=== PATIENT | female | born 1985 | race Caucasian/White ===

== ENCOUNTER 2017-10-11 12:55 | Emergency (ER) | payer OTHER ==
[2017-10-11 13:37] LABS: Absolute Lymphocytes (CBC) 2.7 K/uL (0.7-4.9); Absolute Monocytes 0.5 K/uL (0.1-1.3); Absolute Neutrophil 5.7 K/uL (1.8-8.0); Basophils % 1.3 % (0-1.3); Hematocrit 34.1 % (36.0-45.0); Lymphocytes % 27.8 % (15.3-44.8); MCH 25.7 pg (27.0-35.0); MCV 82.4 fL (80-100); MPV 9.8 fL (7.6-11.3); Monocytes % 5.5 % (3.3-12.3); RBC Red Blood Cell Count 4.14 M/uL (3.86-4.86)
[2017-10-11 13:46] LABS: Bicarbonate 28 mEq/L (21-31); Glucose Level 91 mg/dL (65-120); Lipase 22 U/L (22-51); Potassium 3.7 mEq/L (3.6-5.0); Sodium Level 138 mEq/L (135-145)
[2017-10-11] MEDS ORDERED: KETOROLAC 30 MG/ML INJ ONE (13:49)
[2017-10-11] MEDS ORDERED: ONDANSETRON 4 MG/2 ML VIAL ONE (13:49)
[2017-10-11] MEDS ORDERED: NA CHLORIDE 0.9% 1,000 ML ONE (13:49)
[2017-10-11 13:52] LABS: ALT/SGPT 24 IU/L (10-60); AST/SGOT 41 IU/L (10-42); Albumin 4.4 g/dL (3.2-5.5); Alkaline Phosphatase 42 IU/L (42-121); Amylase Level 21 U/L (28-100); BUN Blood Urea Nitrogen 15 mg/dL (6-20); Bilirubin Direct < 0.1 mg/dL (0-0.2); Bilirubin Total 0.6 mg/dL (0.3-1.2); Protein, Total 7.6 g/dL (6.0-8.3)
[2017-10-11 13:59] LABS: Urine Blood NEGATIVE (NEG); Urine Glucose NEGATIVE (NEG); Urine Protein TRACE (NEG); Urine Specific Gravity >1.030 (1.005-1.030)
--- NOTE | 2017-10-11 14:34 | RAD REPORT ---
EXAM DESCRIPTION: CT - Abdomen Pelvis W Contrast - 10/11/2017 2:18 pm CLINICAL HISTORY: Abdominal pain upper abdominal pain COMPARISON: none. TECHNIQUE: Computed axial tomography of the abdomen pelvis was obtained. 100 cc Isovue-300 was admin istered intravenously. Oral contrast was not requested which limits evaluation of bowel. All CT scans are performed using dose optimization technique as appropriate and may include automated exposure control or mA/KV adjustment according to patient size. FINDINGS: Fatty infiltration liver is present. Spleen, pancreas, adrenal and kidneys appear unremarkable. There is no evidence of diverticulitis. The appendix is normal. A small umbilical hernia is present. A 39 millimeter right ovarian cyst is present without significan t free-fluid IMPRESSION: A 39 millimeter right ovarian cyst is present without significant free-fluid
--- NOTE | 2017-10-11 14:37 | ER ---
Nurse's Notes [facility] Name: Rachael Knox Age: 32 yrs Sex: Female : 1985 Arrival Date: 10/11/2017 Time: 12:59 Bed 20 Private MD: None, None Diagnosis: Generalized abdominal pain;Unspecified ovarian cysts Presentation: 10/11 13:02 Presenting complaint: Patient states: I always have abd pain but today its worse, pt la1 denies N/V/D, states pain in LUQ. Transition of care: patient was not received from another setting of care. Onset of symptoms was October 11, 2017. Initial Sepsis Screen: Does the patient meet any 2 criteria? No. Patient's initial sepsis screen is negative. Does the patient have a suspected source of infection? No. Patient's initial sepsis screen is negative. Care prior to arrival: None. 13:02 Method Of Arrival: Ambulatory la1 13:02 Acuity: DARSHAN 3 la1 Triage Assessment: 15:12 General: Appears in no apparent distress. comfortable, Behavior is calm, cooperative, ch appropriate for age. Pain: Denies pain. 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 - Social history:: Smoking status: Patient/guardian denies using tobacco. Screenin:14 Abuse screen: Denies threats or abuse. Denies injuries from another. Nutritional ch screening: No deficits noted. Tuberculosis screening: No symptoms or risk factors identified. Fall Risk None identified. Assessment: 13:14 Pain: Complains of pain in abdomen Pain currently is 7 out of 10 on a pain scale. ch Neuro: No deficits noted. Respiratory: Airway is patent Respiratory effort is even, unlabored, Breath sounds are clear bilaterally. GI: Abdomen is obese, Bowel sounds present X 4 quads. Abd is soft and non tender X 4 quads. Derm: Skin is pink, warm \T\ dry. 15:11 Reassessment: Patient appears in no apparent distress at this time. Patient and/or ch family updated on plan of care and expected duration. Pain level reassessed. Patient is alert, oriented x 3, equal unlabored respirations, skin warm/dry/pink. Patient states feeling better. Patient states symptoms have improved. Vital Signs: 13:03 BP 132 / 88; Pulse 71; Resp 19; Temp 97.2; Pulse Ox 100% on R/A; Weight 149.69 kg; la1 Height 5 ft. 4 in. (162.56 cm); 15:11 BP 121 / 81; Pulse 56; Resp 18; Temp 98.2; Pulse Ox 99% on R/A; Pain 5/10; ch 13:03 Body Mass Index 56.64 (149.69 kg, 162.56 cm) la1 ED Course: 12:59 Patient arrived in ED. sb2 12:59 None, None is Private Physician. sb2 13:02 Triage completed. la1 13:03 Arm band placed on left wrist. la1 13:04 Liliane Diallo FNP-C is PHCP. kb 13:04 Kang Gifford MD is Attending Physician. kb 13:14 Angelita Pritchard, VITA is Primary Nurse. ch 13:14 No apparent distress. Resting quietly. ch 13:14 Patient has correct armband on for positive identification. Bed in low position. Call ch light in reach. Side rails up X2. Adult w/ patient. Pulse ox on. NIBP on. Warm blanket given. 13:14 No provider procedures requiring assistance completed. ch 13:41 Inserted saline lock: 18 gauge in right antecubital area, using aseptic technique. Blood collected. 14:19 CT Abd/Pelvis - W/Contrast In Process Unspecified. EDMS 14:36 CT completed. Patient tolerated procedure well. Patient moved back from CT. bq 15:11 IV discontinued, intact, bleeding controlled, No redness/swelling at site. Pressure ch dressing applied. Administered Medications: 13:45 Drug: NS 0.9% 1000 ml Route: IV; Rate: 1000 ml; Site: right antecubital; ch 14:25 Follow up: IV Status: Completed infusion; IV Intake: 1000ml ch 13:50 Drug: TORadol 30 mg Route: IVP; Site: right antecubital; ch 14:25 Follow up: Response: No adverse reaction; Marked relief of symptoms ch 13:55 Drug: Zofran 4 mg Route: IVP; Site: right antecubital; ch 14:25 Follow up: Response: No adverse reaction; Marked relief of symptoms ch Intake: 14:25 IV: 1000ml; Total: 1000ml. ch Outcome: 14:36 Discharge ordered by MD. perez 15:11 Discharged to home ambulatory, with family. ch 15:11 Condition: stable 15:11 Discharge instructions given to patient, family, Instructed on discharge instructions, follow up and referral plans. medication usage, Demonstrated understanding of instructions, follow-up care, medications, Prescriptions given X 2. 15:12 Patient left the ED. ch Signatures: Dispatcher [employer] EDLiliane Abarca, GETACHEW HERNANDEZ-Angelita Hernández, RN RN Loyda Hoffmann Lee, RN RN la1 Cornelia Guzmna2
--- NOTE | 2017-10-11 14:37 | EDPHYS ---
Physician Documentation [facility] Name: Rachael Knox Age: 32 yrs Sex: Female : 1985 Arrival Date: 10/11/2017 Time: 12:59 Bed 20 Private MD: None, None ED Physician Kang Gifford HPI: 10/11 13:31 This 32 yrs old Female presents to ER via Ambulatory with complaints of kb Abdominal Pain. 13:31 The patient presents with abdominal pain in the left upper quadrant, in the left lower kb quadrant. Onset: The symptoms/episode began/occurred a few months ago, became worse yesterday. The symptoms do not radiate. Associated signs and symptoms: Pertinent positives: nausea. The symptoms are described as achy. Modifying factors: The symptoms are alleviated by nothing, the symptoms are aggravated by pressure. Severity of pain: At its worst the pain was moderate in the emergency department the pain is unchanged. The patient has not experienced similar symptoms in the past. The patient has not recently seen a physician. 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 - Social history:: Smoking status: Patient/guardian denies using tobacco. ROS: 13:31 Constitutional: Negative for fever, chills, and weight loss, Cardiovascular: Negative kb for chest pain, palpitations, and edema, Respiratory: Negative for shortness of breath, cough, wheezing, and pleuritic chest pain, Back: Negative for injury and pain, : Negative for injury, bleeding, discharge, and swelling, MS/Extremity: Negative for injury and deformity, Skin: Negative for injury, rash, and discoloration, Neuro: Negative for headache, weakness, numbness, tingling, and seizure. 13:31 Abdomen/GI: Positive for abdominal pain, nausea, Negative for vomiting, diarrhea, constipation, abdominal cramps, abdominal distension, anorexia. Exam: 13:31 Constitutional: This is a well developed, well nourished patient who is awake, alert, kb and in no acute distress. Head/Face: Normocephalic, atraumatic. Chest/axilla: Normal chest wall appearance and motion. Nontender with no deformity. No lesions are appreciated. Cardiovascular: Regular rate and rhythm with a normal S1 and S2. No gallops, murmurs, or rubs. Normal PMI, no JVD. No pulse deficits. Respiratory: Lungs have equal breath sounds bilaterally, clear to auscultation and percussion. No rales, rhonchi or wheezes noted. No increased work of breathing, no retractions or nasal flaring. Back: No spinal tenderness. No costovertebral tenderness. Full range of motion. Skin: Warm, dry with normal turgor. Normal color with no rashes, no lesions, and no evidence of cellulitis. MS/ Extremity: Pulses equal, no cyanosis. Neurovascular intact. Full, normal range of motion. Neuro: Awake and alert, GCS 15, oriented to person, place, time, and situation. Cranial nerves II-XII grossly intact. Motor strength 5/5 in all extremities. Sensory grossly intact. Cerebellar exam normal. Normal gait. 13:31 Abdomen/GI: Inspection: obese Bowel sounds: normal, in all quadrants, Palpation: soft, in all quadrants, nontender, in the right upper quadrant and right lower quadrant, moderate abdominal tenderness, in the left upper quadrant and left lower quadrant. Vital Signs: 13:03 BP 132 / 88; Pulse 71; Resp 19; Temp 97.2; Pulse Ox 100% on R/A; Weight 149.69 kg; la1 Height 5 ft. 4 in. (162.56 cm); 15:11 BP 121 / 81; Pulse 56; Resp 18; Temp 98.2; Pulse Ox 99% on R/A; Pain 5/10; ch 13:03 Body Mass Index 56.64 (149.69 kg, 162.56 cm) la1 MDM: 13:08 Patient medically screened. kb 13:31 Data reviewed: vital signs, nurses notes. Data interpreted: Pulse oximetry: on room air kb is 100 %. Interpretation: normal. 14:36 Counseling: I had a detailed discussion with the patient and/or guardian regarding: the kb historical points, exam findings, and any diagnostic results supporting the discharge/admit diagnosis, lab results, radiology results, the need for outpatient follow up, a family practitioner, an OB/Gyne specialist, to return to the emergency department if symptoms worsen or persist or if there are any questions or concerns that arise at home. 10/11 13:08 Order name: Amylase, Serum; Complete Time: 13:55 kb 10/11 13:08 Order name: Basic Metabolic Panel; Complete Time: 13:55 kb 10/11 13:08 Order name: CBC with Diff; Complete Time: 13:40 kb 10/11 13:08 Order name: Hepatic Function; Complete Time: 13:55 kb 10/11 13:08 Order name: Lipase; Complete Time: 13:55 kb 10/11 13:35 Order name: Urine Dipstick--Ancillary (enter results); Complete Time: 14:25 ag 10/11 13:08 Order name: Urine Test (obtain specimen); Complete Time: 13:16 kb 10/11 13:08 Order name: IV Saline Lock; Complete Time: 13:16 kb 10/11 13:08 Order name: Labs collected and sent; Complete Time: 13:16 kb 10/11 13:35 Order name: Urine --Ancillary (enter results); Complete Time: 14:25 ag 10/11 13:55 Order name: CT Abd/Pelvis - W/Contrast; Complete Time: 14:35 kb 10/11 13:08 Order name: Urine Dipstick-Ancillary (obtain specimen); Complete Time: 13:16 kb Administered Medications: 13:45 Drug: NS 0.9% 1000 ml Route: IV; Rate: 1000 ml; Site: right antecubital; ch 14:25 Follow up: IV Status: Completed infusion; IV Intake: 1000ml ch 13:50 Drug: TORadol 30 mg Route: IVP; Site: right antecubital; ch 14:25 Follow up: Response: No adverse reaction; Marked relief of symptoms ch 13:55 Drug: Zofran 4 mg Route: IVP; Site: right antecubital; ch 14:25 Follow up: Response: No adverse reaction; Marked relief of symptoms ch Disposition: 10/12 09:10 Co-signature as Attending Physician, Kang Gifford MD I agree with the assessment and ze plan of care. Disposition: 05/20/18 14:36 Discharged to Home. Impression: Generalized abdominal pain, Unspecified ovarian cysts. - Condition is Stable. - Discharge Instructions: Abdominal Pain, Adult, [id number], Ovarian Cyst, [id number]. - Prescriptions for Zofran 4 mg Oral Tablet - take 1 tablet by ORAL route every 6 hours As needed; 20 tablet. Diclofenac Sodium 75 mg Oral Tablet, Delayed Release (E.C.) - take 1 tablet by ORAL route 2 times per day As needed; 30 tablet. - Medication Reconciliation Form, Thank You Letter, Antibiotic Education, Prescription Opioid Use form. - Follow up: Emergency Department; When: As needed; Reason: Worsening of condition. Follow up: Private Physician; When: 2 - 3 days; Reason: Recheck today's complaints, Continuance of care, Re-evaluation by your physician. Signatures: Dispatcher [employer] EDLiliane Abarca, AMBULANCE DRIVER-C AMBULANCE DRIVER-Angelita Hernández, RN RN Kang Stephen MD MD cha Attema, Lee RN RN la1 Corrections: (The following items were deleted from the chart) 10/11 15:12 14:36 10/11/2017 14:36 Discharged to Home. Impression: Generalized abdominal pain; ch Unspecified ovarian cysts. Condition is Stable. Forms are Medication Reconciliation Form, Thank You Letter, Antibiotic Education, Prescription Opioid Use. Follow up: Emergency Department; When: As needed; Reason: Worsening of condition. Follow up: Private Physician; When: 2 - 3 days; Reason: Recheck today's complaints, Continuance of care, Re-evaluation by your physician. kb
== END 2017-10-11 15:12 | disposition home or self-care (01) ==
LOC: ER 12:55
DX: N83.209 Unspecified ovarian cyst, unspecified side (principal); Z88.0 Allergy status to penicillin; Z88.1 Allergy status to other antibiotic agents; Z88.2 Allergy status to sulfonamides; Z88.3 Allergy status to other anti-infective agents
CPT/HCPCS: 36415; 74177; 80048; 80076; 81003; 81025; 82150; 83690; 85025; 96361; 96374; 96375; 99284; J2405; J7030; Q9967

== ENCOUNTER 2017-12-03 22:06 | Emergency (ER) | payer OTHER ==
[2017-12-03 23:26] LABS: Urine Blood NEGATIVE (NEG); Urine Glucose NEGATIVE (NEG); Urine Protein 2+ (NEG); Urine Specific Gravity 1.025 (1.005-1.030)
[2017-12-03] MEDS ORDERED: DICYCLOMINE HCL 10 MG CAP ONE (23:40)
[2017-12-03] MEDS ORDERED: NA CHLORIDE 0.9% 1,000 ML ONE (23:40)
[2017-12-04 00:06] LABS: Urine Mucus 3+ /HPF (NONE SEEN)
[2017-12-04 00:07] LABS: Urine Bacteria <20 /HPF (<20); Urine Culture Reflex Order NOT NEEDED; Urine RBC <5 /HPF (NONE SEEN)
[2017-12-04 00:10] LABS: Absolute Lymphocytes (CBC) 2.4 K/uL (0.7-4.9); Absolute Monocytes 0.5 K/uL (0.1-1.3); Absolute Neutrophil 5.7 K/uL (1.8-8.0); Basophils % 1.1 % (0-1.3); Eosinophils % 7.3 % (0-4.4); Lymphocytes % 25.8 % (15.3-44.8); MCH 28.2 pg (27.0-35.0); MCV 85.8 fL (80-100); MPV 9.9 fL (7.6-11.3); Monocytes % 5.2 % (3.3-12.3); RBC Red Blood Cell Count 3.96 M/uL (3.86-4.86)
[2017-12-04 00:35] LABS: Anisocytosis 1+; Blood Morphology Comment NOTED (NOT SEEN); Urine White Blood Cell Casts OK
[2017-12-04 00:36] LABS: Platelet Estimate ADEQ
[2017-12-04 00:46] LABS: ALT/SGPT 35 U/L (12-78); AST/SGOT 64 U/L (15-37); Albumin 4.2 g/dL (3.4-5.0); Alkaline Phosphatase 54 U/L (45-117); BUN Blood Urea Nitrogen 12 mg/dL (7-18); Bicarbonate 31 mmol/L (21-32); Bilirubin Direct < 0.1 mg/dL (0-0.2); Bilirubin Total 0.2 mg/dL (0.2-1.0); Glucose Level 95 mg/dL (74-106); Lipase 131 U/L (73-393); Potassium 4.2 mmol/L (3.5-5.1); Protein, Total 7.8 g/dL (6.4-8.2); Sodium Level 140 mmol/L (136-145)
--- NOTE | 2017-12-04 01:28 | ER ---
Nurse's Notes [facility] Name: Rachael Knox Age: 32 yrs Sex: Female : 1985 Arrival Date: 12/03/2017 Time: 22:07 Bed 14 Private MD: Diagnosis: Hypothyroidism, unspecified;Generalized abdominal pain Presentation: 12/03 22:24 Presenting complaint: Patient states: I HAVE THIS PAIN IN MY ABDOMEN, I GET IT ALL THE bp TIME. 22:27 Transition of care: patient was not received from another setting of care. Onset of bp symptoms is unknown. Risk Assessment: Do you want to hurt yourself or someone else? Patient reports no desire to harm self or others. Initial Sepsis Screen: Does the patient meet any 2 criteria? No. Patient's initial sepsis screen is negative. Does the patient have a suspected source of infection? No. Patient's initial sepsis screen is negative. Care prior to arrival: None. 22:27 Method Of Arrival: Ambulatory bp 22:27 Acuity: DARSHAN 4 bp Triage Assessment: 22:29 General: Appears in no apparent distress. comfortable, obese, Behavior is calm, bp cooperative, appropriate for age. General: Smells of FRIED FOOD. Pain: Complains of pain in abdomen. EENT: No deficits noted. Neuro: Level of Consciousness is awake, alert, obeys commands, Oriented to person, place, time, situation, Appropriate for age. Cardiovascular: No deficits noted. Respiratory: Airway is patent Respiratory effort is even, unlabored, Respiratory pattern is regular, symmetrical. GI: Abdomen is obese, Bowel sounds present X 4 quads. Abd is soft X 4 quads. : No signs and/or symptoms were reported regarding the genitourinary system. Derm: No deficits noted. Musculoskeletal: No deficits noted. 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 - Social history:: Smoking status: unknown. - Ebola Screening: : Patient negative for fever greater than or equal to 101.5 degrees Fahrenheit, and additional compatible Ebola Virus Disease symptoms Patient denies exposure to infectious person Patient denies travel to an Ebola-affected area in the 21 days before illness onset No symptoms or risks identified at this time. Screenin:32 Abuse screen: Denies threats or abuse. Denies injuries from another. Nutritional bp screening: No deficits noted. Tuberculosis screening: No symptoms or risk factors identified. Fall Risk None identified. Assessment: 22:32 General: SEE TRIAGE NOTE. bp 12/04 00:00 Reassessment: ALL CURRENT ORDERS COMPLETE, IVF INFUSING. bp 00:52 Reassessment: ALL CURRENT ORDERS COMPLETED, VS STABLE ON MONITOR. DISPO PENDING. bp 02:20 Reassessment: PT D/C HOME AMBULATORY, DX WITH HYPOTHYROIDISM. bp Vital Signs: 12/03 22:31 BP 138 / 94; Pulse 89; Resp 14; Temp 98; Pulse Ox 94% ; Weight 151.95 kg; Height 5 ft. bp 5 in. (165.10 cm); 12/04 00:00 BP 118 / 71; Pulse 79; Resp 14; Pulse Ox 92% ; bp 00:51 BP 124 / 77; Pulse 79; Resp 16; Pulse Ox 95% on R/A; bp 01:30 BP 129 / 76; Pulse 81; Resp 16; Pulse Ox 96% ; bp 07 22:31 Body Mass Index 55.75 (151.95 kg, 165.10 cm) bp ED Course: 12/03 22:07 Patient arrived in ED. ds1 22:17 Adithya Guillen, VITA is Primary Nurse. bp 22:20 Ainsley Bruce FNP-C is PHCP. snw 22:20 Kang Gifford MD is Attending Physician. snw 22:28 Triage completed. bp 22:32 Arm band placed on. bp 22:32 Patient has correct armband on for positive identification. Bed in low position. Call bp light in reach. Side rails up X2. Adult w/ patient. 22:45 Inserted saline lock: 22 gauge in left antecubital area, using aseptic technique. bp 12/04 02:21 No provider procedures requiring assistance completed. IV discontinued, intact, bp bleeding controlled, No redness/swelling at site. Pressure dressing applied. Administered Medications: 12/03 23:30 Drug: NS 0.9% 1000 ml Route: IV; Rate: 125 ml/hr; Site: left antecubital; bp 12/04 01:33 Follow up: IV Status: Completed infusion bp 12/03 23:30 Drug: Bentyl 20 mg Route: PO; bp 12/04 00:06 Follow up: Response: No adverse reaction bp 01:50 Drug: Synthroid 150 mcg Route: PO; bp 01:51 Follow up: Response: Medication administered at discharge. bp 01:50 Drug: traMADol 50 mg Route: PO; bp 01:51 Follow up: Response: Medication administered at discharge. bp Outcome: 01:27 Discharge ordered by . snw 02:22 Discharged to home ambulatory, with family. bp 02:22 Condition: stable 02:22 Discharge instructions given to patient, Instructed on discharge instructions, follow up and referral plans. medication usage, Demonstrated understanding of instructions, follow-up care, medications, Prescriptions given X 2. 02:22 Patient left the ED. bp Signatures: Ainsley Bruce, ANIMAL BIOLOGIST-C ANIMAL BIOLOGIST-Fern Zhang ds1 Adithya Guillen, RN RN bp
--- NOTE | 2017-12-04 01:28 | EDPHYS ---
Physician Documentation [facility] Name: Rachael Knox Age: 32 yrs Sex: Female : 1985 Arrival Date: 12/03/2017 Time: 22:07 Bed 14 Private MD: ED Physician Kang Gifford HPI: 12/04 00:17 This 32 yrs old Female presents to ER via Ambulatory with complaints of snw Abdominal Pain. 00:17 The patient presents with abdominal pain that is diffuse. Onset: The symptoms/episode snw began/occurred 3 month(s) ago, and became persistent. The symptoms do not radiate. Associated signs and symptoms: none. The symptoms are described as crampy, sharp. Severity of pain: At its worst the pain was moderate in the emergency department the pain is unchanged. The patient has experienced similar episodes in the past, chronically. The patient has not recently seen a physician, and does not have an established primary care provider, just moved to area. no meds for hypothyroidism, bipolar condition, or hypertension. 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 - Social history:: Smoking status: unknown. - Ebola Screening: : Patient negative for fever greater than or equal to 101.5 degrees Fahrenheit, and additional compatible Ebola Virus Disease symptoms Patient denies exposure to infectious person Patient denies travel to an Ebola-affected area in the 21 days before illness onset No symptoms or risks identified at this time. ROS: 12/04 00:16 Constitutional: Negative for fever, chills, and weight loss, Eyes: Negative for injury, snw pain, redness, and discharge, ENT: Negative for injury, pain, and discharge, Neck: Negative for injury, pain, and swelling, Cardiovascular: Negative for chest pain, palpitations, and edema, Respiratory: Negative for shortness of breath, cough, wheezing, and pleuritic chest pain, Back: Negative for injury and pain, : Negative for injury, bleeding, discharge, and swelling, MS/Extremity: Negative for injury and deformity, Skin: Negative for injury, rash, and discoloration, Neuro: Negative for headache, weakness, numbness, tingling, and seizure. Abdomen/GI: Positive for abdominal pain. 00:16 Abdomen/GI: Negative for nausea, vomiting, and diarrhea. snw Exam: 00:15 Head/Face: Normocephalic, atraumatic. Eyes: Pupils equal round and reactive to light, snw extra-ocular motions intact. Lids and lashes normal. Conjunctiva and sclera are non-icteric and not injected. Cornea within normal limits. Periorbital areas with no swelling, redness, or edema. ENT: Nares patent. No nasal discharge, no septal abnormalities noted. Tympanic membranes are normal and external auditory canals are clear. Oropharynx with no redness, swelling, or masses, exudates, or evidence of obstruction, uvula midline. Mucous membranes moist. Neck: Trachea midline, no thyromegaly or masses palpated, and no cervical lymphadenopathy. Supple, full range of motion without nuchal rigidity, or vertebral point tenderness. No Meningismus. Chest/axilla: Normal chest wall appearance and motion. Nontender with no deformity. No lesions are appreciated. Cardiovascular: Regular rate and rhythm with a normal S1 and S2. No gallops, murmurs, or rubs. Normal PMI, no JVD. No pulse deficits. Respiratory: Lungs have equal breath sounds bilaterally, clear to auscultation and percussion. No rales, rhonchi or wheezes noted. No increased work of breathing, no retractions or nasal flaring. 00:15 Back: No spinal tenderness. No costovertebral tenderness. Full range of motion. Skin: Warm, dry with normal turgor. Pale color with no rashes, no lesions, and no evidence of cellulitis. MS/ Extremity: Pulses equal, no cyanosis. Neurovascular intact. Full, normal range of motion. Neuro: Awake and alert, GCS 15, oriented to person, place, time, and situation. Cranial nerves II-XII grossly intact. Motor strength 5/5 in all extremities. Sensory grossly intact. Cerebellar exam normal. Normal gait. 00:15 Constitutional: The patient appears alert, awake, obese. 00:15 Constitutional: The patient appears pale. 00:15 Abdomen/GI: Inspection: obese Bowel sounds: normal, Palpation: mild abdominal tenderness, in all quadrants. Vital Signs: 12/03 22:31 BP 138 / 94; Pulse 89; Resp 14; Temp 98; Pulse Ox 94% ; Weight 151.95 kg; Height 5 ft. bp 5 in. (165.10 cm); 12/04 00:00 BP 118 / 71; Pulse 79; Resp 14; Pulse Ox 92% ; bp 00:51 BP 124 / 77; Pulse 79; Resp 16; Pulse Ox 95% on R/A; bp 01:30 BP 129 / 76; Pulse 81; Resp 16; Pulse Ox 96% ; bp 12/03 22:31 Body Mass Index 55.75 (151.95 kg, 165.10 cm) bp MDM: 12/03 22:22 Patient medically screened. [facility] 12/04 01:29 Data reviewed: vital signs, nurses notes. Data interpreted: Pulse oximetry: on room air snw is 95 %. Interpretation: normal. Counseling: I had a detailed discussion with the patient and/or guardian regarding: the historical points, exam findings, and any diagnostic results supporting the discharge/admit diagnosis, lab results, the need for outpatient follow up, to return to the emergency department if symptoms worsen or persist or if there are any questions or concerns that arise at home. Special discussion: Based on the history and exam findings, there is no indication for further emergent testing or inpatient evaluation. I discussed with the patient/guardian the need to see the primary care provider for further evaluation of the symptoms. Endocrinology. 12/03 22:29 Order name: Urine Microscopic Only; Complete Time: 00:07 w 12/03 22:45 Order name: Urine Dipstick--Ancillary (enter results); Complete Time: 23:48 rg2 12/03 22:45 Order name: Urine --Ancillary (enter results); Complete Time: 23:48 2 12/03 23:04 Order name: Basic Metabolic Panel; Complete Time: 01:22 snw 12/03 23:04 Order name: CBC with Diff; Complete Time: 00:40 snw 12/03 23:04 Order name: Hepatic Function; Complete Time: 01:22 snw 12/03 23:04 Order name: Lipase; Complete Time: 01:22 snw 12/03 23:04 Order name: TSH; Complete Time: 01:22 [facility] 12/04 00:11 Order name: CBC Smear Scan; Complete Time: 00:40 [facility] 12/04 00:49 Order name: T4 Free; Complete Time: 01:22 [facility] 12/03 22:29 Order name: Urine Dipstick-Ancillary (obtain specimen); Complete Time: 22:35 [facility] 12/03 22:30 Order name: Urine Test (obtain specimen); Complete Time: 22:35 [facility] 12/03 23:04 Order name: IV Saline Lock; Complete Time: 23:27 snw 12/03 23:04 Order name: Labs collected and sent; Complete Time: 23:26 snw Administered Medications: 12/03 23:30 Drug: NS 0.9% 1000 ml Route: IV; Rate: 125 ml/hr; Site: left antecubital; bp 12/04 01:33 Follow up: IV Status: Completed infusion bp 12/03 23:30 Drug: Bentyl 20 mg Route: PO; bp 12/04 00:06 Follow up: Response: No adverse reaction bp 01:50 Drug: Synthroid 150 mcg Route: PO; bp 01:51 Follow up: Response: Medication administered at discharge. bp 01:50 Drug: traMADol 50 mg Route: PO; bp 01:51 Follow up: Response: Medication administered at discharge. bp Disposition: 12/04/17 01:27 Discharged to Home. Impression: Hypothyroidism, unspecified, Generalized abdominal pain. - Condition is Stable. - Discharge Instructions: Obesity, Abdominal Pain, Women. - Prescriptions for Bentyl 20 mg Oral Tablet - take 1 tablet by ORAL route every 6 hours As needed; 20 tablet. Levothyroxine 150 mcg Oral Tablet - take 1 tablet by ORAL route once daily take 30 minutes before breakfast; 20 tablet. - Medication Reconciliation Form, Thank You Letter, Antibiotic Education, Prescription Opioid Use form. - Follow up: Private Physician; When: 1 week; Reason: Recheck today's complaints, Continuance of care, Re-evaluation by your physician. Follow up: Emergency Department; When: As needed; Reason: Worsening of condition. Addendum: 12/06/2017 06:35 Co-signature as Attending Physician, Kang Gifford MD I agree with the assessment and c ornelas plan of care. Signatures: Dispatcher [employer] Kang Singleton MD MD cha Therrien Ainsley, FOOD SERVICE AIDE-C FOOD SERVICE AIDE-Csnw Adithya Guillen, RN RN bp Corrections: (The following items were deleted from the chart) 12/04 02:22 01:27 12/04/2017 01:27 Discharged to Home. Impression: Hypothyroidism, unspecified; bp Generalized abdominal pain. Condition is Stable. Forms are Medication Reconciliation Form, Thank You Letter, Antibiotic Education, Prescription Opioid Use. Follow up: Private Physician; When: 1 week; Reason: Recheck today's complaints, Continuance of care, Re-evaluation by your physician. Follow up: Emergency Department; When: As needed; Reason: Worsening of condition. snw
[2017-12-04] MEDS ORDERED: TRAMADOL HCL 50 MG TAB ONE (01:41)
[2017-12-04] MEDS ORDERED: LEVOTHYROXINE SOD 0.075 MG TAB ONE (01:48)
== END 2017-12-04 02:22 | disposition home or self-care (01) ==
LOC: ER 22:06
DX: E03.9 Hypothyroidism, unspecified (principal); I10 Essential (primary) hypertension; Z88.0 Allergy status to penicillin; Z88.1 Allergy status to other antibiotic agents; Z88.2 Allergy status to sulfonamides; Z88.3 Allergy status to other anti-infective agents
CPT/HCPCS: 36415; 80048; 80076; 81003; 81015; 81025; 83690; 84439; 84443; 85025; 96360; 96361; 99283; J7030

== ENCOUNTER 2018-02-18 16:15 | Emergency (ER) | payer OTHER ==
[2018-02-18] MEDS ORDERED: ALBUTEROL 2.5 MG/3 ML NEB SOL ONE (16:57)
--- NOTE | 2018-02-18 17:07 | RAD REPORT ---
EXAM DESCRIPTION: Rosario Art (2 Views)02/18/2018 4:53 pm CLINICAL HISTORY: Cough COMPARISON: December 2017 FINDINGS: The lungs appear clear of acute infiltrate. The heart is normal size IMPRESSION: No acute abnormalities displayed
--- NOTE | 2018-02-18 17:37 | EDPHYS ---
Physician Documentation [facility] Name: Rachael Knox Age: 32 yrs Sex: Female : 1985 Arrival Date: 02/18/2018 Time: 16:18 Bed 28 Private MD: LAITH CAMPOS ED Physician Junito Sutton HPI: 02/18 16:51 This 32 yrs old Female presents to ER via Ambulatory with complaints of Chest kb Congestion, Ear Pain. 16:51 The patient or guardian reports cough, that is intermittent, described as moderate, kb with productive sputum, that is yellow, flu symptoms, low-grade fever, myalgias. Onset: The symptoms/episode began/occurred 4 day(s) ago. Severity of symptoms: At their worst the symptoms were mild, moderate, in the emergency department the symptoms are unchanged. Modifying factors: The symptoms are alleviated by nothing, the symptoms are aggravated by nothing. Associated signs and symptoms: Pertinent positives: earache, fever, rhinorrhea, sore throat, Pertinent negatives: chest pain, diarrhea, nausea, vomiting. The patient has not experienced similar symptoms in the past. The patient has not recently seen a physician. 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 - Social history:: Smoking status: Patient/guardian denies using tobacco. - Ebola Screening: : Patient denies travel to an Ebola-affected area in the 21 days before illness onset. ROS: 16:49 Neck: Negative for injury, pain, and swelling, Cardiovascular: Negative for chest pain, kb palpitations, and edema, Abdomen/GI: Negative for abdominal pain, nausea, vomiting, diarrhea, and constipation, Back: Negative for injury and pain, : Negative for injury, bleeding, discharge, and swelling, MS/Extremity: Negative for injury and deformity, Skin: Negative for injury, rash, and discoloration, Neuro: Negative for headache, weakness, numbness, tingling, and seizure. 16:49 Constitutional: Positive for fever, Negative for body aches, chills, fatigue, malaise, poor PO intake, weight loss. 16:49 ENT: Positive for ear pain, rhinorrhea, sinus congestion, sore throat. 16:49 Respiratory: Positive for cough, with yellow sputum. Exam: 16:51 Constitutional: This is a well developed, well nourished patient who is awake, alert, kb and in no acute distress. Head/Face: Normocephalic, atraumatic. ENT: Nares patent. No nasal discharge, no septal abnormalities noted. Tympanic membranes are normal and external auditory canals are clear. Oropharynx with no redness, swelling, or masses, exudates, or evidence of obstruction, uvula midline. Mucous membranes moist. Neck: Trachea midline, no thyromegaly or masses palpated, and no cervical lymphadenopathy. Supple, full range of motion without nuchal rigidity, or vertebral point tenderness. No Meningismus. Chest/axilla: Normal chest wall appearance and motion. Nontender with no deformity. No lesions are appreciated. Cardiovascular: Regular rate and rhythm with a normal S1 and S2. No gallops, murmurs, or rubs. Normal PMI, no JVD. No pulse deficits. Respiratory: Lungs have equal breath sounds bilaterally, clear to auscultation and percussion. No rales, rhonchi or wheezes noted. No increased work of breathing, no retractions or nasal flaring. Abdomen/GI: Soft, non-tender, with normal bowel sounds. No distension or tympany. No guarding or rebound. No evidence of tenderness throughout. Skin: Warm, dry with normal turgor. Normal color with no rashes, no lesions, and no evidence of cellulitis. MS/ Extremity: Pulses equal, no cyanosis. Neurovascular intact. Full, normal range of motion. Neuro: Awake and alert, GCS 15, oriented to person, place, time, and situation. Cranial nerves II-XII grossly intact. Motor strength 5/5 in all extremities. Sensory grossly intact. Cerebellar exam normal. Normal gait. Vital Signs: 16:29 BP 138 / 101; Pulse 83; Resp 20; Temp 97.2; Pulse Ox 95% on R/A; Weight 149.69 kg (R); aj1 Height 5 ft. 5 in. (165.10 cm) (R); Pain 810; 16:29 Body Mass Index 54.91 (149.69 kg, 165.10 cm) aj1 MDM: 16:32 Patient medically screened. kb 16:48 Data reviewed: vital signs, nurses notes. Data interpreted: Pulse oximetry: on room air kb is 95 %. Interpretation: normal. 17:36 Counseling: I had a detailed discussion with the patient and/or guardian regarding: the kb historical points, exam findings, and any diagnostic results supporting the discharge/admit diagnosis, lab results, radiology results, the need for outpatient follow up, a family practitioner, to return to the emergency department if symptoms worsen or persist or if there are any questions or concerns that arise at home. 02/18 16:38 Order name: Flu; Complete Time: 17:35 kb 02/18 16:38 Order name: Strep; Complete Time: 17:33 kb 02/18 16:38 Order name: Chest Pa And Lat (2 Views) XRAY; Complete Time: 17:08 kb 02/18 17:34 Order name: Throat Culture EDMS Administered Medications: 16:55 Drug: Albuterol 2.5 mg Route: Inhalation; rv 18:08 Follow up: Response: No adverse reaction rv Disposition: 18:39 Co-signature as Attending Physician, Junito Sutton MD. rn Disposition: 02/18/18 17:36 Discharged to Home. Impression: Acute upper respiratory infection, unspecified. - Condition is Stable. - Discharge Instructions: Upper Respiratory Infection, Adult, [id number]. - Medication Reconciliation Form, Thank You Letter, Antibiotic Education, Prescription Opioid Use form. - Follow up: Emergency Department; When: As needed; Reason: Worsening of condition. Follow up: Private Physician; When: 2 - 3 days; Reason: Recheck today's complaints, Continuance of care, Re-evaluation by your physician. Signatures: Dispatcher [employer] EDMS Liliane Diallo FNP-C FNP-Devika Hermosillo RN RN aj1 Junito Sutton MD MD rn Vicente, Ronaldo, RN RN rv Corrections: (The following items were deleted from the chart) 18:10 17:36 02/18/2018 17:36 Discharged to Home. Impression: Acute upper respiratory rv infection, unspecified. Condition is Stable. Forms are Medication Reconciliation Form, Thank You Letter, Antibiotic Education, Prescription Opioid Use. Follow up: Emergency Department; When: As needed; Reason: Worsening of condition. Follow up: Private Physician; When: 2 - 3 days; Reason: Recheck today's complaints, Continuance of care, Re-evaluation by your physician. kb
--- NOTE | 2018-02-18 17:37 | ER ---
Nurse's Notes [facility] Name: Rachael Knox Age: 32 yrs Sex: Female : 1985 Arrival Date: 02/18/2018 Time: 16:18 Bed 28 Private MD: LAITH CAMPOS Diagnosis: Acute upper respiratory infection, unspecified Presentation: 02/18 16:26 Presenting complaint: Patient states: "I have a nasty cough, and my throat is raw. My aj1 ears are hurting. I'm coughing up a lot of nasty mucus" Reports fever, shortness of breath on exertion. Transition of care: patient was not received from another setting of care. Onset of symptoms was February 15, 2018. Risk Assessment: Do you want to hurt yourself or someone else? Patient reports no desire to harm self or others. Initial Sepsis Screen: Does the patient meet any 2 criteria? No. Patient's initial sepsis screen is negative. Does the patient have a suspected source of infection? Yes: Productive cough/pneumonia. Care prior to arrival: None. 16:26 Method Of Arrival: Ambulatory aj1 16:26 Acuity: DARSHAN 4 aj1 Triage Assessment: 16:29 General: Appears in no apparent distress. uncomfortable, Behavior is calm, cooperative, aj1 appropriate for age. Pain: Pain currently is 8 out of 10 on a pain scale. EENT: Reports nasal congestion nasal discharge sore throat. Neuro: Level of Consciousness is awake, alert, obeys commands. Cardiovascular: Patient's skin is warm and dry. Respiratory: Reports shortness of breath on exertion cough that is productive, Airway is patent Respiratory effort is even, unlabored, Respiratory pattern is regular, symmetrical. 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 - Social history:: Smoking status: Patient/guardian denies using tobacco. - Ebola Screening: : Patient denies travel to an Ebola-affected area in the 21 days before illness onset. Screenin:00 Abuse screen: Denies threats or abuse. Denies injuries from another. Nutritional rv screening: No deficits noted. Tuberculosis screening: No symptoms or risk factors identified. Fall Risk None identified. Assessment: 16:45 General: Appears in no apparent distress. comfortable, Behavior is calm, cooperative. rv 16:45 Pain: Denies pain. Neuro: Level of Consciousness is awake, alert, obeys commands, rv Oriented to person, place, time, situation. Cardiovascular: Capillary refill < 3 seconds. Respiratory: Airway is patent. GI: No signs and/or symptoms were reported involving the gastrointestinal system. : No signs and/or symptoms were reported regarding the genitourinary system. EENT: No signs and/or symptoms were reported regarding the EENT system. Derm: Skin is intact. Vital Signs: 16:29 BP 138 / 101; Pulse 83; Resp 20; Temp 97.2; Pulse Ox 95% on R/A; Weight 149.69 kg (R); aj1 Height 5 ft. 5 in. (165.10 cm) (R); Pain 8/10; 16:29 Body Mass Index 54.91 (149.69 kg, 165.10 cm) aj1 ED Course: 16:18 Patient arrived in ED. sb2 16:18 LAITH CAMPOS is Private Physician. sb2 16:25 Liliane Diallo FNP-C [facility]. kb 16:25 Junito Sutton MD is Attending Physician. kb 16:29 Triage completed. aj1 16:29 Arm band placed on Patient placed in an exam room. aj1 16:50 X-ray completed. Portable x-ray completed in exam room. Patient tolerated procedure az well. 16:50 Chest Pa And Lat (2 Views) XRAY In Process Unspecified. EDMS 17:01 Patient has correct armband on for positive identification. Bed in low position. Call rv light in reach. Side rails up X 1. Pulse ox on. NIBP on. 17:01 Initial Neb Treatment Given as ordered Patient was instructed and evaluated on rv procedure. 18:09 Throat Culture Sent. rv 18:09 No provider procedures requiring assistance completed. Patient did not have IV access rv during this emergency room visit. Administered Medications: 16:55 Drug: Albuterol 2.5 mg Route: Inhalation; rv 18:08 Follow up: Response: No adverse reaction rv Outcome: 17:36 Discharge ordered by MD. perez 18:09 Discharged to home ambulatory. rv 18:09 Condition: improved 18:09 Discharge instructions given to patient, Instructed on discharge instructions, follow up and referral plans. Demonstrated understanding of instructions, follow-up care. 18:10 Patient left the ED. rv Signatures: Dispatcher [employer] EDLiliane Abarca, DIRECTOR AUTO-C DAVID-Devika Hermosillo RN RN aj1 Cornelia Guzman sbLuis Trinidad RN RN rv Debo Yang
== END 2018-02-18 18:10 | disposition home or self-care (01) ==
LOC: ER 16:15
DX: J06.9 Acute upper respiratory infection, unspecified (principal); E03.9 Hypothyroidism, unspecified; I10 Essential (primary) hypertension; Z88.0 Allergy status to penicillin; Z88.1 Allergy status to other antibiotic agents; Z88.2 Allergy status to sulfonamides
CPT/HCPCS: 71046; 87070; 87081; 87804; 99284

== ENCOUNTER 2018-02-22 20:18 | Emergency (ER) | payer OTHER ==
[2018-02-22] MEDS ORDERED: ALBUTEROL 2.5 MG/3 ML NEB SOL ONE (21:06)
[2018-02-22] MEDS ORDERED: IPRATROPIUM BROM 0.5MG/2.5ML ONE (21:06)
[2018-02-22] MEDS ORDERED: predniSONE 20 MG TAB ONE (21:53)
--- NOTE | 2018-02-22 22:30 | RAD REPORT ---
EXAM DESCRIPTION: RAD - Chest Pa And Lat (2 Views) - 02/22/2018 9:37 pm CLINICAL HISTORY: Cough, shortness of breath COMPARISON: February 18 TECHNIQUE: PA and lateral views of the chest were obtained. FINDINGS: The lungs are clear. Lung markings are similar to the comparison study. Heart size is nor mal and central vasculature is within normal limits. No pleural effusion or pneumothorax seen. No a cute bony finding noted. No aortic abnormality. IMPRESSION: No acute cardiopulmonary process. No significant interval change.
[2018-02-22] MEDS ORDERED: LEVALBUTEROL 1.25 MG/3 ML NEB ONE (22:47)
--- NOTE | 2018-02-22 23:15 | ER ---
Nurse's Notes [facility] Name: Rachael Knox Age: 32 yrs Sex: Female : 1985 Arrival Date: 02/22/2018 Time: 20:23 Bed 27 Private MD: Diagnosis: Bronchitis, not specified as acute or chronic Presentation: 02/22 20:24 Presenting complaint: Patient states: She was seen here last week for cough, diagnosed aj1 with URI, and was sent home with Rx for breathing treatments. Reports she has had a nonstop productive cough and now she is short of breath, taking breathing treatments every 4 hours but they aren't helping, she is feeling worse. Transition of care: patient was not received from another setting of care. Onset of symptoms was 2017. Risk Assessment: Do you want to hurt yourself or someone else? Patient reports no desire to harm self or others. Initial Sepsis Screen: Does the patient meet any 2 criteria? HR > 90 bpm. No. Patient's initial sepsis screen is negative. Does the patient have a suspected source of infection? Yes: Productive cough/pneumonia. Care prior to arrival: None. 20:24 Method Of Arrival: Ambulatory aj1 20:24 Acuity: DARSHAN 3 aj1 Triage Assessment: 20:27 General: Appears in no apparent distress. uncomfortable, Behavior is calm, cooperative, aj1 appropriate for age. Pain: Denies pain. Neuro: Level of Consciousness is awake, alert, obeys commands. Cardiovascular: Patient's skin is warm and dry. Respiratory: Reports shortness of breath at rest cough that is non-productive, persistent Airway is patent Respiratory effort is even, unlabored. 20:52 Musculoskeletal: Circulation, motion, and sensation intact. Injury Description: Denies kr2 injury. 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 - Social history:: Smoking status: Patient/guardian denies using tobacco. - Ebola Screening: : Patient denies travel to an Ebola-affected area in the 21 days before illness onset. Screenin:51 Abuse screen: Denies threats or abuse. Denies injuries from another. Nutritional kr2 screening: No deficits noted. Tuberculosis screening: No symptoms or risk factors identified. Fall Risk None identified. Assessment: 20:48 General: Appears in no apparent distress. uncomfortable, obese, Behavior is calm, kr2 cooperative. Pain: Denies pain. Pain does not radiate. Pain began denies pain. Neuro: Level of Consciousness is awake, alert, obeys commands, Oriented to person, place, time, situation. Cardiovascular: Capillary refill < 3 seconds in bilateral fingers Patient's skin is warm and dry. Rhythm is regular. Respiratory: Airway is patent Respiratory effort is even, unlabored, Respiratory pattern is regular, symmetrical, Breath sounds are diminished bilaterally. the patient has mild shortness of breath. Respiratory: Reports shortness of breath at rest on exertion cough that is productive. GI: Abdomen is obese, Bowel sounds present X 4 quads. : Denies burning with urination. EENT: Oral mucosa is moist. Reports nasal congestion. 21:20 Reassessment: Patient appears in no apparent distress at this time. Patient and/or kr2 family updated on plan of care and expected duration. Pain level reassessed. Patient is alert, oriented x 3, equal unlabored respirations, skin warm/dry/pink. Patient states she feels better after receiving breathing treatment Patient states feeling better. Patient states symptoms have improved. 23:04 Reassessment: Patient appears in no apparent distress at this time. Patient and/or kr2 family updated on plan of care and expected duration. Pain level reassessed. Patient is alert, oriented x 3, equal unlabored respirations, skin warm/dry/pink. Patient states feeling better. Vital Signs: 20:27 BP 138 / 106; Pulse 95; Resp 24; Temp 99.4(O); Pulse Ox 89% on R/A; Weight 149.69 kg aj1 (R); Height 5 ft. 5 in. (165.10 cm) (R); Pain 0/10; 21:52 Pulse 93; Resp 20; Pulse Ox 95% on 2 lpm NC; kr2 23:04 BP 135 / 98; Pulse 95; Resp 20; Pulse Ox 95% on R/A; kr2 20:27 Body Mass Index 54.91 (149.69 kg, 165.10 cm) aj1 ED Course: 20:23 Patient arrived in ED. ds1 20:27 Triage completed. aj1 20:27 Arm band placed on Patient placed in an exam room. aj1 20:31 Andrés Gilmore NP is PHCP. pm1 20:31 Wilmer Carter MD is Attending Physician. pm1 20:43 Clarissa Sunshine, VITA is Primary Nurse. kr2 20:52 Patient has correct armband on for positive identification. Bed in low position. Call kr2 light in reach. Side rails up X 1. Adult w/ patient. campus monitor on. Pulse ox on. NIBP on. Door closed. Warm blanket given. Head of bed elevated. 20:53 Oxygen administration via nasal cannula \T\ 3L/min Response to oxygen therapy: symptoms kr2 improved. 21:35 Chest Pa And Lat (2 Views) XRAY In Process Unspecified. EDMS 23:04 No provider procedures requiring assistance completed. Patient did not have IV access kr2 during this emergency room visit. Administered Medications: 21:05 Drug: Albuterol - atroVENT (3:1) (2.5 mg - 0.5 mg) 3 ml Route: Nebulizer; kr2 21:20 Follow up: Response: No adverse reaction; Marked relief of symptoms kr2 21:51 Drug: predniSONE 60 mg Route: PO; kr2 22:49 Follow up: Response: No adverse reaction kr2 22:45 Drug: Xopenex 1.25 mg Route: Inhalation; kr2 23:01 Follow up: Response: No adverse reaction; Marked relief of symptoms kr2 Outcome: 23:05 Discharged to home ambulatory, with family. kr2 23:05 Condition: good 23:05 Discharge instructions given to patient, Instructed on discharge instructions, follow up and referral plans. medication usage, Demonstrated understanding of instructions, follow-up care, medications, Prescriptions given X 3. 23:15 Discharge ordered by MD. pm1 23:21 Patient left the ED. kr2 Signatures: Dispatcher [employer] EDDE Devika Paiz RN RN aj1 Fern Mckeon ds1 Andrés Gilmore NP BUSINESS TECHNOLOGY TEACHER pm1 Clarissa Sunshine, VITA RN kr2 Corrections: (The following items were deleted from the chart) 23:21 23:05 Discharge instructions given to patient, Instructed on discharge instructions, kr2 follow up and referral plans. medication usage, Demonstrated understanding of instructions, follow-up care, medications, Prescriptions given X kr2
--- NOTE | 2018-02-22 23:15 | EDPHYS ---
Physician Documentation [facility] Name: Rachael Knox Age: 32 yrs Sex: Female : 1985 Arrival Date: 02/22/2018 Time: 20:23 Bed 27 Private MD: ED Physician Wilmer Carter HPI: 02/22 22:00 This 32 yrs old Female presents to ER via Ambulatory with complaints of pm1 Shortness Of Breath. 22:00 The patient has shortness of breath at rest. Onset: The symptoms/episode began/occurred pm1 1 week(s) ago. Duration: The symptoms are continuous. The patient's shortness of breath is aggravated by nothing, is alleviated by nothing. Associated signs and symptoms: Pertinent positives: productive cough, Pertinent negatives: chest pain, fever. Severity of symptoms: in the emergency department the symptoms are worse. The patient has been recently seen at the [facility] Emergency Department, last week. Patient seen here last week for the same symptom of shortness of breath and cough. Diagnosed with URI and discharged. Patient returned due to increased shortness of breath without much improvement from breathing treatments at home. Patient was discharged home without any medications. 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 - Social history:: Smoking status: Patient/guardian denies using tobacco. - Ebola Screening: : Patient denies travel to an Ebola-affected area in the 21 days before illness onset. ROS: 22:00 Constitutional: Negative for fever, chills, and weight loss, Eyes: Negative for injury, pm1 pain, redness, and discharge, ENT: Negative for injury, pain, and discharge, Neck: Negative for injury, pain, and swelling, Cardiovascular: Negative for chest pain, palpitations, and edema, Abdomen/GI: Negative for abdominal pain, nausea, vomiting, diarrhea, and constipation, Back: Negative for injury and pain, : Negative for injury, bleeding, discharge, and swelling, MS/Extremity: Negative for injury and deformity, Skin: Negative for injury, rash, and discoloration, Neuro: Negative for headache, weakness, numbness, tingling, and seizure. 22:00 Respiratory: Positive for cough, shortness of breath, wheezing. Exam: 22:00 Constitutional: This is a well developed, well nourished patient who is awake, alert, pm1 and in no acute distress. Head/Face: Normocephalic, atraumatic. Eyes: Pupils equal round and reactive to light, extra-ocular motions intact. Lids and lashes normal. Conjunctiva and sclera are non-icteric and not injected. Cornea within normal limits. Periorbital areas with no swelling, redness, or edema. ENT: Nares patent. No nasal discharge, no septal abnormalities noted. Tympanic membranes are normal and external auditory canals are clear. Oropharynx with no redness, swelling, or masses, exudates, or evidence of obstruction, uvula midline. Mucous membranes moist. Neck: Trachea midline, no thyromegaly or masses palpated, and no cervical lymphadenopathy. Supple, full range of motion without nuchal rigidity, or vertebral point tenderness. No Meningismus. Chest/axilla: Normal chest wall appearance and motion. Nontender with no deformity. No lesions are appreciated. Cardiovascular: Regular rate and rhythm with a normal S1 and S2. No gallops, murmurs, or rubs. Normal PMI, no JVD. No pulse deficits. 22:00 Abdomen/GI: Soft, non-tender, with normal bowel sounds. No distension or tympany. No guarding or rebound. No evidence of tenderness throughout. Back: No spinal tenderness. No costovertebral tenderness. Full range of motion. Skin: Warm, dry with normal turgor. Normal color with no rashes, no lesions, and no evidence of cellulitis. MS/ Extremity: Pulses equal, no cyanosis. Neurovascular intact. Full, normal range of motion. 22:00 Respiratory: the patient does not display signs of respiratory distress, Respirations: normal, Breath sounds: wheezing: is heard diffusely. 22:00 Neuro: Orientation: is normal, Motor: is normal, moves all fours, Gait: is steady, at a normal pace, without difficulty. Vital Signs: 20:27 BP 138 / 106; Pulse 95; Resp 24; Temp 99.4(O); Pulse Ox 89% on R/A; Weight 149.69 kg aj1 (R); Height 5 ft. 5 in. (165.10 cm) (R); Pain 0/10; 21:52 Pulse 93; Resp 20; Pulse Ox 95% on 2 lpm NC; kr2 23:04 BP 135 / 98; Pulse 95; Resp 20; Pulse Ox 95% on R/A; kr2 20:27 Body Mass Index 54.91 (149.69 kg, 165.10 cm) aj1 MDM: 21:05 Patient medically screened. pm1 23:12 Data reviewed: vital signs. Data interpreted: Pulse oximetry: on room air is 95 %. pm1 Interpretation: normal. Counseling: I had a detailed discussion with the patient and/or guardian regarding: the historical points, exam findings, and any diagnostic results supporting the discharge/admit diagnosis, radiology results, the need for outpatient follow up, to return to the emergency department if symptoms worsen or persist or if there are any questions or concerns that arise at home. 23:12 ED course: Patient feels better after breathing treatments and wants to go home. Has a pm1 nebulizer machine at home. Will discharge patient home with steroids and cough suppressant. 02/22 21:04 Order name: Chest Pa And Lat (2 Views) XRAY; Complete Time: 22:31 pm1 Administered Medications: 21:05 Drug: Albuterol - atroVENT (3:1) (2.5 mg - 0.5 mg) 3 ml Route: Nebulizer; kr2 21:20 Follow up: Response: No adverse reaction; Marked relief of symptoms kr2 21:51 Drug: predniSONE 60 mg Route: PO; kr2 22:49 Follow up: Response: No adverse reaction kr2 22:45 Drug: Xopenex 1.25 mg Route: Inhalation; kr2 23:01 Follow up: Response: No adverse reaction; Marked relief of symptoms kr2 Disposition: 23:23 Co-signature as Attending Physician, Wilmer Carter MD. pkl Disposition: 02/22/18 23:15 Discharged to Home. Impression: Bronchitis, not specified as acute or chronic. - Condition is Stable. - Discharge Instructions: Acute Bronchitis, Adult, How to Use an Inhaler, [id number]. - Prescriptions for Medrol (Ed) 4 mg Oral Tablets, Dose Pack - take 1 tablet by ORAL route as directed - follow package instructions; 1 packet. Albuterol Sulfate 90 mcg/actuation - inhale 1-2 puff by INHALATION route every 4-6 hours; 1 Inhaler. Guaifenesin AC 10- 100 mg/5 mL Oral Liquid - take 10 milliliter by ORAL route every 4 hours As needed; 240 milliliter. - Medication Reconciliation Form, Thank You Letter, Antibiotic Education, Prescription Opioid Use form. - Follow up: Emergency Department; When: As needed; Reason: Worsening of condition. Follow up: Private Physician; When: 2 - 3 days; Reason: Recheck today's complaints, Continuance of care, Re-evaluation by your physician. - Problem is new. - Symptoms have improved. Signatures: Dispatcher [employer] EDMS Devika Paiz RN RN aj1 Wilmer Carter MD MD pkl Marinas, Patrick, NP ASTRONOMY DEPARTMENT CHAIR pm1 Clarissa Sunshine RN RN kr2 Corrections: (The following items were deleted from the chart) 23:21 23:15 02/22/2018 23:15 Discharged to Home. Impression: Bronchitis, not specified as kr2 acute or chronic. Condition is Stable. Forms are Medication Reconciliation Form, Thank You Letter, Antibiotic Education, Prescription Opioid Use. Follow up: Emergency Department; When: As needed; Reason: Worsening of condition. Follow up: Private Physician; When: 2 - 3 days; Reason: Recheck today's complaints, Continuance of care, Re-evaluation by your physician. Problem is new. Symptoms have improved. pm1
--- NOTE | 2018-02-23 07:24 | EKG ---
Test Date: 2018-02-22 Test Time: 20:55:33 Inclusion Manager: KV MEASUREMENT RESULTS: Intervals: Rate: 96 RI: 136 QRSD: 94 QT: 388 QTc: 490 [place]: P: 46 RI: 136 QRS: 9 T: 53 INTERPRETIVE STATEMENTS: Normal sinus rhythm Low voltage QRS Abnormal ECG Compared to ECG 01/14/2016 01:15:00 Low QRS voltage now present Sinus tachycardia no longer present T-wave abnormality no longer present Electronically Signed On 02-23-18 07:23:31 CDT by Rustam Pepper
== END 2018-02-22 23:21 | disposition home or self-care (01) ==
LOC: ER 20:18
DX: J40 Bronchitis, not specified as acute or chronic (principal); I10 Essential (primary) hypertension; E03.9 Hypothyroidism, unspecified; Z88.0 Allergy status to penicillin; Z88.1 Allergy status to other antibiotic agents; Z88.2 Allergy status to sulfonamides; Z88.3 Allergy status to other anti-infective agents
CPT/HCPCS: 71046; 93005; 94640; 99285; J7512

== ENCOUNTER 2018-03-06 22:21 | Emergency (ER) | payer OTHER ==
--- NOTE | 2018-03-06 23:38 | ER ---
Nurse's Notes [facility] Name: Rachael Knox Age: 33 yrs Sex: Female : 1985 Arrival Date: 03/06/2018 Time: 22:23 Bed Hall20 Private MD: Diagnosis: Otitis media, unspecified, left ear Presentation: 03/06 22:33 Presenting complaint: Patient states: markie ear pain for past 3 days, L worse than R. aa1 Transition of care: patient was not received from another setting of care. Onset of symptoms was March 03, 2018. Risk Assessment: Do you want to hurt yourself or someone else? Patient reports no desire to harm self or others. Initial Sepsis Screen: Does the patient meet any 2 criteria? No. Patient's initial sepsis screen is negative. Does the patient have a suspected source of infection? No. Patient's initial sepsis screen is negative. Care prior to arrival: None. 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 - Social history:: Smoking status: Patient/guardian denies using tobacco. - Ebola Screening: : No symptoms or risks identified at this time. Screenin:33 Abuse screen: Denies threats or abuse. Denies injuries from another. Nutritional aa1 screening: No deficits noted. Tuberculosis screening: No symptoms or risk factors identified. Fall Risk None identified. Assessment: 22:33 General: Appears in no apparent distress. comfortable, obese, Behavior is calm, aa1 cooperative, appropriate for age. Pain: Complains of pain in right ear and left ear Pain began 2-3 days ago. Neuro: Level of Consciousness is awake, alert, obeys commands, Oriented to person, place, time, situation, Gait is steady. Respiratory: Airway is patent Respiratory effort is even, unlabored, Respiratory pattern is regular, symmetrical. GI: No signs and/or symptoms were reported involving the gastrointestinal system. : No signs and/or symptoms were reported regarding the genitourinary system. EENT: Reports pain in left ear and right ear. Derm: Skin is intact, is healthy with good turgor, Skin is pink, warm \T\ dry. Musculoskeletal: Circulation, motion, and sensation intact. Capillary refill < 3 seconds. Vital Signs: 22:33 BP 130 / 103; Pulse 100; Resp 18; Temp 97.1; Pulse Ox 97% on R/A; Weight 151.05 kg; aa1 Height 5 ft. 5 in. (165.10 cm); 23:45 BP 129 / 87; Pulse 86; Resp 16 S; Pulse Ox 98% on R/A; jd3 22:33 Body Mass Index 55.41 (151.05 kg, 165.10 cm) aa1 ED Course: 22:23 Patient arrived in ED. rg4 22:33 Arm band placed on right wrist. Patient placed in an exam room, on a stretcher. aa1 22:33 Patient has correct armband on for positive identification. Bed in low position. Call aa1 light in reach. 22:40 Andrés Gilmore NP is PHCP. pm1 22:40 Joe Alexander MD is Attending Physician. pm1 22:53 Sara Rico RN is Primary Nurse. aa1 22:55 Triage completed. aa1 23:43 No provider procedures requiring assistance completed. Patient did not have IV access jd3 during this emergency room visit. Administered Medications: No medications were administered Outcome: 23:38 Discharge ordered by MD. pm1 23:44 Discharged to home ambulatory, with family. jd3 23:44 Condition: stable 23:44 Discharge instructions given to patient, Instructed on discharge instructions, follow up and referral plans. medication usage, Demonstrated understanding of instructions, follow-up care, medications, Prescriptions given X 1. 23:53 Patient left the ED. aa1 Signatures: Sara Rico RN RN aa1 Andrés Gilmore NP PAYROLL MACHINE OPERATOR pm1 Kaya Rivera rg4 Neftali Feldman, RN RN jd3
--- NOTE | 2018-03-06 23:38 | EDPHYS ---
Physician Documentation [facility] Name: Rachael Knox Age: 33 yrs Sex: Female : 1985 Arrival Date: 03/06/2018 Time: 22:23 Bed Hall20 Private MD: ED Physician Joe Alexander HPI: 03/06 23:37 This 33 yrs old Female presents to ER via Ambulatory with complaints of Ear pm1 Pain. 23:37 The patient presents with pain. The complaints affect the right ear and left ear. pm1 Onset: The symptoms/episode began/occurred yesterday. Modifying factors: The symptoms are alleviated by nothing, the symptoms are aggravated by nothing. Associated signs and symptoms: Pertinent negatives: cough, fever, rhinorrhea, sore throat. Severity of symptoms: in the emergency department the symptoms are worse. The patient has not experienced similar symptoms in the past. The patient has not recently seen a physician. left ear pain greater than right ear. 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 - Social history:: Smoking status: Patient/guardian denies using tobacco. - Ebola Screening: : No symptoms or risks identified at this time. ROS: 23:37 Constitutional: Negative for fever, chills, and weight loss, Eyes: Negative for injury, pm1 pain, redness, and discharge. 23:37 Neck: Negative for injury, pain, and swelling, Cardiovascular: Negative for chest pain, palpitations, and edema, Respiratory: Negative for shortness of breath, cough, wheezing, and pleuritic chest pain, Abdomen/GI: Negative for abdominal pain, nausea, vomiting, diarrhea, and constipation, Back: Negative for injury and pain, : Negative for injury, bleeding, discharge, and swelling, MS/Extremity: Negative for injury and deformity, Skin: Negative for injury, rash, and discoloration, Neuro: Negative for headache, weakness, numbness, tingling, and seizure. 23:37 ENT: Positive for ear pain, Negative for drainage from ear(s), rhinorrhea, sinus congestion, sinus pain, sore throat, difficulty swallowing, difficulty handling secretions, hoarseness. Exam: 23:37 Constitutional: This is a well developed, well nourished patient who is awake, alert, pm1 and in no acute distress. Head/Face: Normocephalic, atraumatic. Eyes: Pupils equal round and reactive to light, extra-ocular motions intact. Lids and lashes normal. Conjunctiva and sclera are non-icteric and not injected. Cornea within normal limits. Periorbital areas with no swelling, redness, or edema. 23:37 Neck: Trachea midline, no thyromegaly or masses palpated, and no cervical lymphadenopathy. Supple, full range of motion without nuchal rigidity, or vertebral point tenderness. No Meningismus. Chest/axilla: Normal chest wall appearance and motion. Nontender with no deformity. No lesions are appreciated. Cardiovascular: Regular rate and rhythm with a normal S1 and S2. No gallops, murmurs, or rubs. Normal PMI, no JVD. No pulse deficits. Respiratory: Lungs have equal breath sounds bilaterally, clear to auscultation and percussion. No rales, rhonchi or wheezes noted. No increased work of breathing, no retractions or nasal flaring. Abdomen/GI: Soft, non-tender, with normal bowel sounds. No distension or tympany. No guarding or rebound. No evidence of tenderness throughout. Back: No spinal tenderness. No costovertebral tenderness. Full range of motion. Skin: Warm, dry with normal turgor. Normal color with no rashes, no lesions, and no evidence of cellulitis. MS/ Extremity: Pulses equal, no cyanosis. Neurovascular intact. Full, normal range of motion. 23:37 ENT: External ear(s): are unremarkable, Ear canal(s): are normal, TM's: bulging, on the left, erythema, that is moderate, on the left, Examination of the other ear shows no obvious abnormality, Nose: is normal, Mouth: is normal. 23:37 Neuro: Orientation: is normal, Motor: is normal, moves all fours, strength is normal, strength is 5/5 in all extremities. Vital Signs: 22:33 BP 130 / 103; Pulse 100; Resp 18; Temp 97.1; Pulse Ox 97% on R/A; Weight 151.05 kg; aa1 Height 5 ft. 5 in. (165.10 cm); 23:45 BP 129 / 87; Pulse 86; Resp 16 S; Pulse Ox 98% on R/A; jd3 22:33 Body Mass Index 55.41 (151.05 kg, 165.10 cm) aa1 MDM: 22:54 Patient medically screened. pm1 23:37 Data reviewed: vital signs. Data interpreted: Pulse oximetry: on room air is 97 %. pm1 Interpretation: normal. Counseling: I had a detailed discussion with the patient and/or guardian regarding: the historical points, exam findings, and any diagnostic results supporting the discharge/admit diagnosis, the need for outpatient follow up, to return to the emergency department if symptoms worsen or persist or if there are any questions or concerns that arise at home. Administered Medications: No medications were administered Disposition: 03/07 00:59 Co-signature as Attending Physician, Joe Alexander MD. Disposition: 03/06/18 23:38 Discharged to Home. Impression: Otitis media, unspecified, left ear. - Condition is Stable. - Discharge Instructions: Otitis Media, Adult. - Prescriptions for Zithromax Z- Ed 250 mg Oral Tablet - take 1 tablet by ORAL route as directed for 5 days Day 1 - take two (2) tablets one time. Day 2, 3, 4 , 5 take one (1) tablet once daily.; 6 tablet. - Medication Reconciliation Form, Thank You Letter, Antibiotic Education, Prescription Opioid Use form. - Follow up: Emergency Department; When: As needed; Reason: Worsening of condition. Follow up: Private Physician; When: 2 - 3 days; Reason: Recheck today's complaints, Continuance of care, Re-evaluation by your physician. - Problem is new. - Symptoms have improved. Signatures: Sara Rico RN RN aa1 Andrés Gilmore, OVERHEAD DISTRIBUTION ENGINEER OVERHEAD DISTRIBUTION ENGINEER pm1 Joe Alexander MD MD Corrections: (The following items were deleted from the chart) 03/06 23:53 23:38 03/06/2018 23:38 Discharged to Home. Impression: Otitis media, unspecified, left aa1 ear. Condition is Stable. Forms are Medication Reconciliation Form, Thank You Letter, Antibiotic Education, Prescription Opioid Use. Follow up: Emergency Department; When: As needed; Reason: Worsening of condition. Follow up: Private Physician; When: 2 - 3 days; Reason: Recheck today's complaints, Continuance of care, Re-evaluation by your physician. Problem is new. Symptoms have improved. pm1
== END 2018-03-06 23:53 | disposition home or self-care (01) ==
LOC: ER 22:21
DX: H66.92 Otitis media, unspecified, left ear (principal); I10 Essential (primary) hypertension; E03.9 Hypothyroidism, unspecified; Z88.1 Allergy status to other antibiotic agents; Z88.0 Allergy status to penicillin; Z88.2 Allergy status to sulfonamides
CPT/HCPCS: 99282

== ENCOUNTER 2018-03-09 20:06 | Emergency (ER) | payer OTHER ==
[2018-03-09] MEDS ORDERED: IBUPROFEN 200 MG TAB PO ONE (21:09)
[2018-03-09 21:25] LABS: Urine Blood 2+ (NEG); Urine Glucose NEGATIVE (NEG); Urine Protein NEGATIVE (NEG); Urine Specific Gravity >1.030 (1.005-1.030); Urine pH 5.5 (5.0-7.0)
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
== END 2018-03-09 22:07 | disposition home or self-care (01) ==
LOC: ER 20:06
DX: S20.229A Contusion of unspecified back wall of thorax, initial encounter (principal); S20.221A Contusion of right back wall of thorax, initial encounter; N83.291 Other ovarian cyst, right side; E66.9 Obesity, unspecified; V49.9XXA Car occupant (driver) (passenger) injured in unspecified traffic accident, initial encounter; Z88.0 Allergy status to penicillin; Z88.1 Allergy status to other antibiotic agents; Z88.2 Allergy status to sulfonamides; Z88.3 Allergy status to other anti-infective agents; I10 Essential (primary) hypertension; E03.9 Hypothyroidism, unspecified
CPT/HCPCS: 70450; 71250; 72125; 81003; 81025; 99284

== ENCOUNTER 2018-04-26 10:19 | Emergency (ER) | payer OTHER ==
--- NOTE | 2018-04-26 11:38 | ER ---
Nurse's Notes [facility] Name: Rachael Knox Age: 33 yrs Sex: Female : 1985 Arrival Date: 04/26/2018 Time: 10:19 Bed Treatment Private MD: Diagnosis: Cellulitis and acute lymphangitis of face and neck;Dermatitis, unspecified Presentation: 04/26 10:41 Presenting complaint: Patient states: rash X 1 week, all over body. iw 10:42 Transition of care: patient was not received from another setting of care. Onset of iw symptoms was April 18, 2018. Risk Assessment: Do you want to hurt yourself or someone else? Patient reports no desire to harm self or others. Initial Sepsis Screen: Does the patient meet any 2 criteria? No. Patient's initial sepsis screen is negative. Does the patient have a suspected source of infection? No. Patient's initial sepsis screen is negative. Care prior to arrival: None. 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 - Ebola Screening: : Patient negative for fever greater than or equal to 101.5 degrees Fahrenheit, and additional compatible Ebola Virus Disease symptoms Patient denies exposure to infectious person Patient denies travel to an Ebola-affected area in the 21 days before illness onset No symptoms or risks identified at this time. - Family history:: not pertinent. - Social history:: Smoking status: Patient/guardian denies using tobacco. Screenin:00 Abuse screen: Denies threats or abuse. Denies injuries from another. Nutritional iw screening: No deficits noted. Tuberculosis screening: No symptoms or risk factors identified. Fall Risk None identified. Assessment: 11:00 General: Appears in no apparent distress. Behavior is calm, cooperative. Pain: Denies iw pain. Neuro: Level of Consciousness is awake, alert, obeys commands, Oriented to person, place, time, situation, Moves all extremities. Full function. Derm: Rash noted that is itchy, vesicular, on back, chest, right arm and left arm. Vital Signs: 11:00 BP 145 / 74; Pulse 84; Resp 16; Temp 98.2; Pulse Ox 100% on R/A; Pain 5/10; iw 12:00 BP 142 / 54; Pulse 74; Resp 16; Pulse Ox 98% on R/A; iw ED Course: 10:19 Patient arrived in ED. rg4 10:41 Anabella King, RN is Primary Nurse. iw 10:42 Triage completed. iw 10:45 Kang Gifford MD is Attending Physician. [facility] 11:00 No provider procedures requiring assistance completed. Patient did not have IV access iw during this emergency room visit. 11:00 Arm band placed on. iw 11:00 Patient has correct armband on for positive identification. iw Administered Medications: 12:02 Drug: Clindamycin 300 mg Route: PO; iw 12:02 Drug: Doxycycline 200 mg Route: PO; iw Outcome: 11:37 Discharge ordered by . ze 12:15 Discharged to home ambulatory. iw 12:15 Condition: good 12:15 Discharge instructions given to patient, Instructed on discharge instructions, follow up and referral plans. medication usage, Demonstrated understanding of instructions, follow-up care, medications, Prescriptions given X 4. 12:16 Patient left the ED. iw Signatures: Kang Gifford MD MD cha Williams, Irene, RN RN iw Kaya Rivera rg4 Corrections: (The following items were deleted from the chart) 10:42 10:41 Presenting complaint: Patient states: rash X 1 week iw iw
--- NOTE | 2018-04-26 11:38 | EDPHYS ---
Physician Documentation [facility] Name: Rachael Knox Age: 33 yrs Sex: Female : 1985 Arrival Date: 04/26/2018 Time: 10:19 Bed Treatment Private MD: ED Physician Kang Gifford HPI: 04/26 11:34 This 33 yrs old Female presents to ER via Ambulatory with complaints of Rash. ze 11:34 The patient's rash thought to be caused by Dermatitis. The rash is located on the body ze diffusely. The rash can be described as erythematous. Onset: The symptoms/episode began/occurred 2 week(s) ago. Associated signs and symptoms: Pertinent positives: None. Severity of symptoms: At their worst the symptoms were mild in the emergency department the symptoms are unchanged. The patient has not experienced similar symptoms in the past. 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 - Ebola Screening: : Patient negative for fever greater than or equal to 101.5 degrees Fahrenheit, and additional compatible Ebola Virus Disease symptoms Patient denies exposure to infectious person Patient denies travel to an Ebola-affected area in the 21 days before illness onset No symptoms or risks identified at this time. - Family history:: not pertinent. - Social history:: Smoking status: Patient/guardian denies using tobacco. ROS: 11:34 Constitutional: Negative for fever, chills, and weight loss, Eyes: Negative for injury, ze pain, redness, and discharge, ENT: Negative for injury, pain, and discharge, Neck: Negative for injury, pain, and swelling, Cardiovascular: Negative for chest pain, palpitations, and edema, Respiratory: Negative for shortness of breath, cough, wheezing, and pleuritic chest pain, Abdomen/GI: Negative for abdominal pain, nausea, vomiting, diarrhea, and constipation, Back: Negative for injury and pain, : Negative for injury, bleeding, discharge, and swelling, MS/Extremity: Negative for injury and deformity, Neuro: Negative for headache, weakness, numbness, tingling, and seizure, Psych: Negative for depression, anxiety, suicide ideation, homicidal ideation, and hallucinations, Allergy/Immunology: Negative for hives, rash, and allergies, Endocrine: Negative for neck swelling, polydipsia, polyuria, polyphagia, and marked weight changes, Hematologic/Lymphatic: Negative for swollen nodes, abnormal bleeding, and unusual bruising. 11:34 Skin: Positive for rash, diffusely. Exam: 11:34 Constitutional: This is a well developed, well nourished patient who is awake, alert, ze and in no acute distress. Head/Face: Normocephalic, atraumatic. Eyes: Pupils equal round and reactive to light, extra-ocular motions intact. Lids and lashes normal. Conjunctiva and sclera are non-icteric and not injected. Cornea within normal limits. Periorbital areas with no swelling, redness, or edema. ENT: Nares patent. No nasal discharge, no septal abnormalities noted. Tympanic membranes are normal and external auditory canals are clear. Oropharynx with no redness, swelling, or masses, exudates, or evidence of obstruction, uvula midline. Mucous membranes moist. Neck: Trachea midline, no thyromegaly or masses palpated, and no cervical lymphadenopathy. Supple, full range of motion without nuchal rigidity, or vertebral point tenderness. No Meningismus. Chest/axilla: Normal chest wall appearance and motion. Nontender with no deformity. No lesions are appreciated. Cardiovascular: Regular rate and rhythm with a normal S1 and S2. No gallops, murmurs, or rubs. Normal PMI, no JVD. No pulse deficits. Respiratory: Lungs have equal breath sounds bilaterally, clear to auscultation and percussion. No rales, rhonchi or wheezes noted. No increased work of breathing, no retractions or nasal flaring. Abdomen/GI: Soft, non-tender, with normal bowel sounds. No distension or tympany. No guarding or rebound. No evidence of tenderness throughout. Back: No spinal tenderness. No costovertebral tenderness. Full range of motion. MS/ Extremity: Pulses equal, no cyanosis. Neurovascular intact. Full, normal range of motion. Neuro: Awake and alert, GCS 15, oriented to person, place, time, and situation. Cranial nerves II-XII grossly intact. Motor strength 5/5 in all extremities. Sensory grossly intact. Cerebellar exam normal. Normal gait. Psych: Awake, alert, with orientation to person, place and time. Behavior, mood, and affect are within normal limits. 11:34 Skin: cellulitis, that is mild, on the back, chest, pelvis, right arm, left arm, right leg and left leg. Vital Signs: 11:00 BP 145 / 74; Pulse 84; Resp 16; Temp 98.2; Pulse Ox 100% on R/A; Pain 5/10; iw 12:00 BP 142 / 54; Pulse 74; Resp 16; Pulse Ox 98% on R/A; iw MDM: 10:45 Patient medically screened. [facility] 04/26 12:04 Order name: Urine Dipstick--Ancillary (enter results) 04/26 12:05 Order name: Urine --Ancillary (enter results) 04/26 11:33 Order name: Urine Dipstick-Ancillary (obtain specimen); Complete Time: 11:51 [facility] 04/26 11:33 Order name: Urine Test (obtain specimen); Complete Time: 11:51 [facility] Administered Medications: 12:02 Drug: Clindamycin 300 mg Route: PO; 12:02 Drug: Doxycycline 200 mg Route: PO; Disposition: 04/26/18 11:37 Discharged to Home. Impression: Cellulitis and acute lymphangitis of face and neck, Dermatitis, unspecified. - Condition is Stable. - Discharge Instructions: Cellulitis, Adult, Contact Dermatitis, MRSA Infection, Adult, Community-Associated MRSA, Rash, Rash, [id number], Contact Dermatitis, [id number], MRSA FAQs - OWENS. - Prescriptions for Bactroban 2 % Topical Ointment - apply 1 application by INTRANASAL route every 12 hours for 5 days; 30 gram. Clindamycin HCl 300 mg Oral Capsule - take 1 capsule by ORAL route every 6 hours for 10 days; 40 capsule. Doxycycline Hyclate 100 mg Oral Tablet - take 1 tablet by ORAL route every 12 hours; 20 tablet. - Medication Reconciliation Form, Thank You Letter, Antibiotic Education, Prescription Opioid Use form. - Follow up: Private Physician; When: 2 - 3 days; Reason: Recheck today's complaints, Continuance of care, Re-evaluation by your physician. - Problem is new. - Symptoms have improved. Signatures: Dispatcher [employer] EDKang Gutierres MD MD cha Williams, Irene RN RN iw Corrections: (The following items were deleted from the chart) 12:16 11:37 04/26/2018 11:37 Discharged to Home. Impression: Cellulitis and acute iw lymphangitis of face and neck; Dermatitis, unspecified. Condition is Stable. Forms are Medication Reconciliation Form, Thank You Letter, Antibiotic Education, Prescription Opioid Use. Follow up: Private Physician; When: 2 - 3 days; Reason: Recheck today's complaints, Continuance of care, Re-evaluation by your physician. Problem is new. Symptoms have improved. ze
[2018-04-26] MEDS ORDERED: DOXYCYCLINE 100 MG CAP PO ONE (12:04)
[2018-04-26] MEDS ORDERED: CLINDAMYCIN HCL 150 MG CAP ONE (12:04)
[2018-04-26 12:25] LABS: Urine Blood 1+ (NEG); Urine Glucose NEGATIVE (NEG); Urine Protein NEGATIVE (NEG); Urine Specific Gravity 1.025 (1.005-1.030); Urine pH 5.5 (5.0-7.0)
== END 2018-04-26 12:16 | disposition home or self-care (01) ==
LOC: ER 10:19
DX: L03.211 Cellulitis of face (principal); L03.221 Cellulitis of neck; L03.212 Acute lymphangitis of face; L03.222 Acute lymphangitis of neck; I10 Essential (primary) hypertension; Z88.0 Allergy status to penicillin; Z88.1 Allergy status to other antibiotic agents; Z88.2 Allergy status to sulfonamides; Z88.3 Allergy status to other anti-infective agents
CPT/HCPCS: 81003; 81025; 99283

== ENCOUNTER 2018-06-14 15:12 | Emergency (ER) | payer OTHER, SELFPAY ==
--- OUTSIDE RECORDS SUMMARY | 2018-06-14 15:15 | XMS REPORT ---
:1985 [facility] [address] [place] [address] Care Team Providers Name Role Phone Unavailable Unavailable Unavailable Problems This patient has no known problems. Allergies, Adverse Reactions, Alerts This patient has no known allergies or adverse reactions. Medications This patient has no known medications.
[2018-06-14] MEDS ORDERED: levoFLOXacin 750 MG TAB ONE (16:28)
[2018-06-14] MEDS ORDERED: ALBUTEROL 2.5 MG/3 ML NEB SOL ONE (16:28)
[2018-06-14] MEDS ORDERED: predniSONE 20 MG TAB ONE (16:28)
[2018-06-14] MEDS ORDERED: IPRATROPIUM BROM 0.5MG/2.5ML ONE (16:28)
--- NOTE | 2018-06-14 16:40 | EDPHYS ---
Physician Documentation [facility] Name: Rachael Knox Age: 33 yrs Sex: Female : 1985 Arrival Date: 06/14/2018 Time: 15:22 Bed 9 Private MD: LAITH CAMPOS ED Physician Kang Gifford HPI: 06/14 16:12 This 33 yrs old Female presents to ER via Ambulatory with complaints of ze Cough, Wheezing > 1 Year. 16:12 The patient or guardian reports airway noise, cough. Onset: The symptoms/episode ze began/occurred 3 day(s) ago. Severity of symptoms: At their worst the symptoms were mild, moderate, in the emergency department the symptoms are unchanged. Modifying factors: The symptoms are alleviated by nothing. Associated signs and symptoms: The patient has no apparent associated signs or symptoms. The patient has not experienced similar symptoms in the past. Historical: - Allergies: 15:37 mycins; sv 15:37 Bactrim; sv 15:37 PENICILLINS; sv 15:37 Sulfa (Sulfonamide Antibiotics); sv - PMHx: 15:37 Bipolar disorder; EDEMA; Hypertension; Hypothyroidism; sv - PSHx: 15:37 ; Tubal ligation; Tonsillectomy; D\T\C; sv - Immunization history:: Adult Immunizations unknown. - Social history:: Smoking status: unknown. - Family history:: not pertinent. - Ebola Screening: : Patient negative for fever greater than or equal to 101.5 degrees Fahrenheit, and additional compatible Ebola Virus Disease symptoms Patient denies exposure to infectious person Patient denies travel to an Ebola-affected area in the 21 days before illness onset. ROS: 16:12 Constitutional: Negative for fever, chills, and weight loss, Eyes: Negative for injury, ze pain, redness, and discharge, ENT: Negative for injury, pain, and discharge, Neck: Negative for injury, pain, and swelling, Cardiovascular: Negative for chest pain, palpitations, and edema, Abdomen/GI: Negative for abdominal pain, nausea, vomiting, diarrhea, and constipation, Back: Negative for injury and pain, : Negative for injury, bleeding, discharge, and swelling, MS/Extremity: Negative for injury and deformity, Skin: Negative for injury, rash, and discoloration, Neuro: Negative for headache, weakness, numbness, tingling, and seizure, Psych: Negative for depression, anxiety, suicide ideation, homicidal ideation, and hallucinations, Allergy/Immunology: Negative for hives, rash, and allergies, Endocrine: Negative for neck swelling, polydipsia, polyuria, polyphagia, and marked weight changes, Hematologic/Lymphatic: Negative for swollen nodes, abnormal bleeding, and unusual bruising. 16:12 Respiratory: Positive for cough, shortness of breath, wheezing, expiratory. 16:12 MS/extremity: Negative for acute changes, pain, swelling, tenderness. Exam: 16:12 Constitutional: This is a well developed, well nourished patient who is awake, alert, ze and in no acute distress. Head/Face: Normocephalic, atraumatic. Eyes: Pupils equal round and reactive to light, extra-ocular motions intact. Lids and lashes normal. Conjunctiva and sclera are non-icteric and not injected. Cornea within normal limits. Periorbital areas with no swelling, redness, or edema. ENT: Nares patent. No nasal discharge, no septal abnormalities noted. Tympanic membranes are normal and external auditory canals are clear. Oropharynx with no redness, swelling, or masses, exudates, or evidence of obstruction, uvula midline. Mucous membranes moist. Neck: Trachea midline, no thyromegaly or masses palpated, and no cervical lymphadenopathy. Supple, full range of motion without nuchal rigidity, or vertebral point tenderness. No Meningismus. Chest/axilla: Normal chest wall appearance and motion. Nontender with no deformity. No lesions are appreciated. Cardiovascular: Regular rate and rhythm with a normal S1 and S2. No gallops, murmurs, or rubs. Normal PMI, no JVD. No pulse deficits. Abdomen/GI: Soft, non-tender, with normal bowel sounds. No distension or tympany. No guarding or rebound. No evidence of tenderness throughout. Back: No spinal tenderness. No costovertebral tenderness. Full range of motion. Skin: Warm, dry with normal turgor. Normal color with no rashes, no lesions, and no evidence of cellulitis. MS/ Extremity: Pulses equal, no cyanosis. Neurovascular intact. Full, normal range of motion. Neuro: Awake and alert, GCS 15, oriented to person, place, time, and situation. Cranial nerves II-XII grossly intact. Motor strength 5/5 in all extremities. Sensory grossly intact. Cerebellar exam normal. Normal gait. Psych: Awake, alert, with orientation to person, place and time. Behavior, mood, and affect are within normal limits. 16:12 Respiratory: mild respiratory distress is noted, moderate respiratory distress is noted, Respirations: labored breathing, is not present, asymmetrical chest movement, is not seen, accessory muscle usage, that is mild, grunting, is not present, prolonged exhalation, that is mild. 16:12 Musculoskeletal/extremity: ROM: no acute changes, intact in all extremities, full ze active range of motion, Circulation is intact in all extremities. Compartment Syndrome exam of affected extremity: is normal. no pain, no numbness, no tingling, no sensation deficit, no palor, no weak pulses, DVT Exam: No signs of deep vein thrombosis. no pain, no swelling, no tenderness, negative Homans' sign noted on exam, no appreciated bluish discoloration, no erythema, no increased warmth. Vital Signs: 15:37 BP 125 / 73; Pulse 94; Resp 20; Temp 98.8; Pulse Ox 93% ; Weight 149.69 kg; Height 5 sv ft. 5 in. (165.10 cm); Pain 6/10; 17:47 BP 118 / 80; Pulse 88; Resp 18 S; Pulse Ox 97% on R/A; rv 15:37 Body Mass Index 54.91 (149.69 kg, 165.10 cm) sv MDM: 15:49 Patient medically screened. [facility] 16:12 Data reviewed: vital signs, nurses notes, EKG, radiologic studies. [facility] 06/14 16:12 Order name: Chest Pa And Lat (2 Views) XRAY [facility] 06/14 16:17 Order name: EKG; Complete Time: 16:25 [facility] 06/14 16:17 Order name: EKG - Nurse/Tech; Complete Time: 16:57 [facility] Administered Medications: 16:15 Drug: predniSONE 60 mg Route: PO; rv 16:57 Follow up: Response: No adverse reaction rv 16:15 Drug: LevOfloxacin 750 mg Route: PO; rv 16:58 Follow up: Response: No adverse reaction rv 16:15 Drug: Albuterol - atroVENT (3:1) (2.5 mg - 0.5 mg) 3 ml Route: Nebulizer; rv 16:57 Follow up: Response: Wheezing diminished rv 16:30 Drug: Doxycycline 200 mg Route: PO; rv 16:58 Follow up: Response: No adverse reaction rv Disposition: 06/14/18 16:39 Discharged to Home. Impression: Bronchitis, not specified as acute or chronic, Acute upper respiratory infection, unspecified, Hypoxemia, Cough. - Condition is Fair. - Discharge Instructions: Acute Bronchitis, Adult, Upper Respiratory Infection, Adult, Cool Mist Vaporizer, Acute Bronchitis, [id number], Upper Respiratory Infection, Adult, [id number], Cough, Adult. - Prescriptions for Albuterol Sulfate 2.5 mg /3 mL (0.083 %) Inhalation Solution for Nebulization - inhale 1 unit by NEBULIZATION route every 8 hours As needed; 1 box. Doxycycline Hyclate 100 mg Oral Tablet - take 1 tablet by ORAL route every 12 hours; 20 tablet. Prednisone 20 mg Oral Tablet - take 2 tablets by ORAL route once daily for 6 days; 12 tablet. Albuterol Sulfate 90 mcg/actuation - inhale 1-2 puff by INHALATION route every 4-6 hours; 1 Inhaler. Guaifenesin AC 10- 100 mg/5 mL Oral Liquid - take 10 milliliters by ORAL route every 4 hours As needed; 160 milliliter. - Medication Reconciliation Form, Thank You Letter, Antibiotic Education, Prescription Opioid Use form. - Follow up: Private Physician; When: 2 - 3 days; Reason: Recheck today's complaints, Continuance of care, Re-evaluation by your physician. Follow up: Lloyd Lugo MD; When: 2 - 3 days; Reason: Recheck today's complaints, Continuance of care, Re-evaluation by your physician. - Problem is new. - Symptoms have improved. Signatures: Dispatcher [employer] Georgia Cates RN RN sv Anderson, Corey, MD MD cha Vicente, Ronaldo RN RN rv Corrections: (The following items were deleted from the chart) 17:10 16:39 06/14/2018 16:39 Discharged to Home. Impression: Bronchitis, not specified as ze acute or chronic; Acute upper respiratory infection, unspecified; Hypoxemia. Condition is Fair. Discharge Instructions: Acute Bronchitis, Adult, Upper Respiratory Infection, Adult, Cool Mist Vaporizer, Acute Bronchitis, [id number], Upper Respiratory Infection, Adult, [id number]-[id number], Cough, Adult. Prescriptions for Albuterol Sulfate 2.5 mg /3 mL (0.083 %) Inhalation Solution for Nebulization - inhale 1 unit by NEBULIZATION route every 8 hours As needed; 1 box, Doxycycline Hyclate 100 mg Oral Tablet - take 1 tablet by ORAL route every 12 hours; 20 tablet, Prednisone 20 mg Oral Tablet - take 2 tablets by ORAL route once daily for 6 days; 12 tablet, Albuterol Sulfate 90 mcg/actuation - inhale 1-2 puff by INHALATION route every 4-6 hours; 1 Inhaler. and Forms are Medication Reconciliation Form, Thank You Letter, Antibiotic Education, Prescription Opioid Use. Follow up: Private Physician; When: 2 - 3 days; Reason: Recheck today's complaints, Continuance of care, Re-evaluation by your physician. Problem is new. Symptoms have improved. [facility] 17:11 17:10 06/14/2018 16:39 Discharged to Home. Impression: Bronchitis, not specified as ze acute or chronic; Acute upper respiratory infection, unspecified; Hypoxemia; Cough. Condition is Fair. Discharge Instructions: Acute Bronchitis, Adult, Upper Respiratory Infection, Adult, Cool Mist Vaporizer, Acute Bronchitis, [id number], Upper Respiratory Infection, Adult, [id number], Cough, Adult. Prescriptions for Albuterol Sulfate 2.5 mg /3 mL (0.083 %) Inhalation Solution for Nebulization - inhale 1 unit by NEBULIZATION route every 8 hours As needed; 1 box, Doxycycline Hyclate 100 mg Oral Tablet - take 1 tablet by ORAL route every 12 hours; 20 tablet, Prednisone 20 mg Oral Tablet - take 2 tablets by ORAL route once daily for 6 days; 12 tablet, Albuterol Sulfate 90 mcg/actuation - inhale 1-2 puff by INHALATION route every 4-6 hours; 1 Inhaler. and Forms are Medication Reconciliation Form, Thank You Letter, Antibiotic Education, Prescription Opioid Use. Follow up: Private Physician; When: 2 - 3 days; Reason: Recheck today's complaints, Continuance of care, Re-evaluation by your physician. Problem is new. Symptoms have improved. [facility] 17:47 17:11 06/14/2018 16:39 Discharged to Home. Impression: Bronchitis, not specified as rv acute or chronic; Acute upper respiratory infection, unspecified; Hypoxemia; Cough. Condition is Fair. Discharge Instructions: Acute Bronchitis, Adult, Upper Respiratory Infection, Adult, Cool Mist Vaporizer, Acute Bronchitis, [id number], Upper Respiratory Infection, Adult, [id number], Cough, Adult. Prescriptions for Albuterol Sulfate 2.5 mg /3 mL (0.083 %) Inhalation Solution for Nebulization - inhale 1 unit by NEBULIZATION route every 8 hours As needed; 1 box, Doxycycline Hyclate 100 mg Oral Tablet - take 1 tablet by ORAL route every 12 hours; 20 tablet, Prednisone 20 mg Oral Tablet - take 2 tablets by ORAL route once daily for 6 days; 12 tablet, Albuterol Sulfate 90 mcg/actuation - inhale 1-2 puff by INHALATION route every 4-6 hours; 1 Inhaler. and Forms are Medication Reconciliation Form, Thank You Letter, Antibiotic Education, Prescription Opioid Use. Follow up: Private Physician; When: 2 - 3 days; Reason: Recheck today's complaints, Continuance of care, Re-evaluation by your physician. Follow up: Lloyd Lugo; When: 2 - 3 days; Reason: Recheck today's complaints, Continuance of care, Re-evaluation by your physician. Problem is new. Symptoms have improved. ze
--- NOTE | 2018-06-14 16:40 | ER ---
Nurse's Notes [facility] Name: Rachael Knox Age: 33 yrs Sex: Female : 1985 Arrival Date: 06/14/2018 Time: 15:22 Bed 9 Private MD: LAITH CAMPOS Diagnosis: Bronchitis, not specified as acute or chronic;Acute upper respiratory infection, unspecified;Hypoxemia;Cough Presentation: 06/14 15:36 Presenting complaint: Patient states: productive cough green/yellow sputum, wheezing x sv 1 week. Has used breathing tx but not helping. Transition of care: patient was not received from another setting of care. Onset of symptoms was June 07, 2018. Care prior to arrival: None. 15:36 Method Of Arrival: Ambulatory sv 15:36 Acuity: DARSHAN 3 sv 17:00 Risk Assessment: Do you want to hurt yourself or someone else? Patient reports no rv desire to harm self or others. Initial Sepsis Screen: Does the patient meet any 2 criteria? No. Patient's initial sepsis screen is negative. Does the patient have a suspected source of infection? No. Patient's initial sepsis screen is negative. Triage Assessment: 17:00 General: Appears in no apparent distress. uncomfortable. Respiratory: Reports cough rv that is Onset: The symptoms/episode began/occurred gradually, the patient has mild shortness of breath. Historical: - Allergies: 15:37 mycins; sv 15:37 Bactrim; sv 15:37 PENICILLINS; sv 15:37 Sulfa (Sulfonamide Antibiotics); sv - PMHx: 15:37 Bipolar disorder; EDEMA; Hypertension; Hypothyroidism; sv - PSHx: 15:37 ; Tubal ligation; Tonsillectomy; D\T\C; sv - Immunization history:: Adult Immunizations unknown. - Social history:: Smoking status: unknown. - Family history:: not pertinent. - Ebola Screening: : Patient negative for fever greater than or equal to 101.5 degrees Fahrenheit, and additional compatible Ebola Virus Disease symptoms Patient denies exposure to infectious person Patient denies travel to an Ebola-affected area in the 21 days before illness onset. Screenin:58 Abuse screen: Denies threats or abuse. Denies injuries from another. Nutritional rv screening: No deficits noted. Tuberculosis screening: No symptoms or risk factors identified. Fall Risk None identified. Assessment: 16:59 General: Appears in no apparent distress. uncomfortable, Behavior is calm, cooperative. rv Pain: Denies pain. Neuro: Level of Consciousness is awake, alert, obeys commands, Oriented to person, place, time, situation. Cardiovascular: Rhythm is regular. Respiratory: Airway is patent Respiratory effort is even, Breath sounds with wheezes bilaterally. GI: No signs and/or symptoms were reported involving the gastrointestinal system. : No signs and/or symptoms were reported regarding the genitourinary system. EENT: No signs and/or symptoms were reported regarding the EENT system. Derm: Skin is intact. Musculoskeletal: No signs and/or symptoms reported regarding the musculoskeletal system. Vital Signs: 15:37 BP 125 / 73; Pulse 94; Resp 20; Temp 98.8; Pulse Ox 93% ; Weight 149.69 kg; Height 5 sv ft. 5 in. (165.10 cm); Pain 6/10; 17:47 BP 118 / 80; Pulse 88; Resp 18 S; Pulse Ox 97% on R/A; rv 15:37 Body Mass Index 54.91 (149.69 kg, 165.10 cm) sv ED Course: 15:22 Patient arrived in ED. sb2 15:23 LAITH CAMPOS is Private Physician. sb2 15:37 Triage completed. sv 15:38 Arm band placed on. sv 15:49 Kang Gifford MD is Attending Physician. ze 16:43 Radiology exam delayed due to patient receiving breathing treatment at this time. az 17:00 No provider procedures requiring assistance completed. Patient did not have IV access rv during this emergency room visit. 17:01 Patient has correct armband on for positive identification. Call light in reach. rv 17:02 Patient moved to radiology via wheelchair. jf 17:02 X-ray completed. Patient tolerated procedure well. jf 17:02 EKG done, by tire maintenance technician. reviewed by Kang Gifford MD. sm3 17:05 Chest Pa And Lat (2 Views) XRAY In Process Unspecified. EDMS 17:10 Lloyd Lugo MD is Referral Physician. ze Administered Medications: 16:15 Drug: predniSONE 60 mg Route: PO; rv 16:57 Follow up: Response: No adverse reaction rv 16:15 Drug: LevOfloxacin 750 mg Route: PO; rv 16:58 Follow up: Response: No adverse reaction rv 16:15 Drug: Albuterol - atroVENT (3:1) (2.5 mg - 0.5 mg) 3 ml Route: Nebulizer; rv 16:57 Follow up: Response: Wheezing diminished rv 16:30 Drug: Doxycycline 200 mg Route: PO; rv 16:58 Follow up: Response: No adverse reaction rv Outcome: 16:39 Discharge ordered by MD. kunz 17:46 Discharged to home ambulatory. rv 17:46 Condition: improved 17:46 Discharge instructions given to patient, Instructed on discharge instructions, follow up and referral plans. medication usage, Demonstrated understanding of instructions, follow-up care, medications, Prescriptions given X 5 17:47 Patient left the ED. rv Signatures: Dispatcher [employer] EDGeorgia Rodney RN RN sv Anderson, Corey, MD MD cha Faul, Justin jf Billeau, Sheri sb2 Belinda Wilson sm3 Luis Ferro RN RN rv Zavala, Araceli az
[2018-06-14] MEDS ORDERED: DOXYCYCLINE 100 MG CAP PO ONE (16:42)
--- NOTE | 2018-06-14 17:09 | EKG ---
Test Date: 2018-06-14 Test Time: 16:51:00 Boat Person: KEVIN MEASUREMENT RESULTS: Intervals: Rate: 92 NJ: 136 QRSD: 98 QT: 396 QTc: 489 Alexander: P: 36 NJ: 136 QRS: 6 T: 42 INTERPRETIVE STATEMENTS: Normal sinus rhythm Nonspecific T wave abnormality Abnormal ECG Compared to ECG 02/22/2018 20:55:33 T-wave abnormality now present Electronically Signed On 06-14-18 17:08:03 COCOA BUTTER FILTER OPERATOR by Dagoberto Ramos
--- NOTE | 2018-06-14 17:13 | RAD REPORT ---
EXAM DESCRIPTION: RAD - Chest Pa And Lat (2 Views) - 06/14/2018 5:06 pm CLINICAL HISTORY: Cough;Dyspnea Chest pain. COMPARISON: Chest Pa And Lat (2 Views) dated 02/22/2018; Chest Pa And Lat (2 Views) dated 02/18/2018; Chest Pa And Lat (2 Views) dated 01/14/2016 FINDINGS: The lungs are clear. The heart is upper limit of normal in size. No displaced fractures.
== END 2018-06-14 17:47 | disposition home or self-care (01) ==
LOC: ER 15:12
DX: J40 Bronchitis, not specified as acute or chronic (principal); J06.9 Acute upper respiratory infection, unspecified; R09.02 Hypoxemia; Z88.0 Allergy status to penicillin; Z88.1 Allergy status to other antibiotic agents; Z88.2 Allergy status to sulfonamides
CPT/HCPCS: 71046; 93005; 94640; 99284; J7512

== ENCOUNTER 2018-08-04 17:59 | Emergency (ER) | payer SELFPAY ==
--- OUTSIDE RECORDS SUMMARY | 2018-08-04 18:01 | XMS REPORT ---
:1985 [facility] Address [address] [place] [address] Dr. Marshall [address] [place] [id number] Care Team Providers Name Role Phone Unavailable Unavailable Unavailable Problems This patient has no known problems. Allergies, Adverse Reactions, Alerts This patient has no known allergies or adverse reactions. Medications This patient has no known medications.
[2018-08-04] MEDS ORDERED: ALBUTEROL 2.5 MG/3 ML NEB SOL ONE (20:06)
[2018-08-04] MEDS ORDERED: IPRATROPIUM BROM 0.5MG/2.5ML ONE (20:06)
[2018-08-04] MEDS ORDERED: predniSONE 20 MG TAB ONE (20:07)
--- NOTE | 2018-08-04 20:43 | EDPHYS ---
Physician Documentation [facility] Name: Rachael Knox Age: 33 yrs Sex: Female : 1985 Arrival Date: 08/04/2018 Time: 18:03 Bed 12 Private MD: ED Physician Kang Gifford HPI: 08/04 20:14 This 33 yrs old Female presents to ER via Ambulatory with complaints of kb Fever, Sore Throat, Congestion. 20:14 The patient or guardian reports cough, flu symptoms, low-grade fever, myalgias. kb Severity of symptoms: At their worst the symptoms were moderate, in the emergency department the symptoms are unchanged. Modifying factors: The symptoms are alleviated by nothing, the symptoms are aggravated by nothing. Associated signs and symptoms: Pertinent positives: fever, rhinorrhea, sore throat, Pertinent negatives: chest pain, diarrhea, ear ache, nausea, vomiting. The patient has not experienced similar symptoms in the past. The patient has not recently seen a physician. 20:14 Onset: The symptoms/episode began/occurred today. 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 - Social history:: Smoking status: Patient/guardian denies using tobacco. - Ebola Screening: : Patient negative for fever greater than or equal to 101.5 degrees Fahrenheit, and additional compatible Ebola Virus Disease symptoms Patient denies exposure to infectious person Patient denies travel to an Ebola-affected area in the 21 days before illness onset No symptoms or risks identified at this time. ROS: 20:13 Cardiovascular: Negative for chest pain, palpitations, and edema, Abdomen/GI: Negative kb for abdominal pain, nausea, vomiting, diarrhea, and constipation, Back: Negative for injury and pain, MS/Extremity: Negative for injury and deformity, Skin: Negative for injury, rash, and discoloration, Neuro: Negative for headache, weakness, numbness, tingling, and seizure. 20:13 Constitutional: Positive for fever, Negative for body aches, chills, fatigue, malaise, poor PO intake, weight loss. 20:13 ENT: Positive for rhinorrhea, sinus congestion, sore throat. 20:13 Respiratory: Positive for cough, wheezing, Negative for dyspnea on exertion, hemoptysis, orthopnea, pleurisy, shortness of breath, sputum production. Exam: 20:13 Constitutional: This is a well developed, well nourished patient who is awake, alert, kb and in no acute distress. Head/Face: Normocephalic, atraumatic. ENT: Nares patent. No nasal discharge, no septal abnormalities noted. Tympanic membranes are normal and external auditory canals are clear. Oropharynx with no redness, swelling, or masses, exudates, or evidence of obstruction, uvula midline. Mucous membranes moist. Neck: Trachea midline, no thyromegaly or masses palpated, and no cervical lymphadenopathy. Supple, full range of motion without nuchal rigidity, or vertebral point tenderness. No Meningismus. Chest/axilla: Normal chest wall appearance and motion. Nontender with no deformity. No lesions are appreciated. Cardiovascular: Regular rate and rhythm with a normal S1 and S2. No gallops, murmurs, or rubs. Normal PMI, no JVD. No pulse deficits. Abdomen/GI: Soft, non-tender, with normal bowel sounds. No distension or tympany. No guarding or rebound. No evidence of tenderness throughout. Skin: Warm, dry with normal turgor. Normal color with no rashes, no lesions, and no evidence of cellulitis. MS/ Extremity: Pulses equal, no cyanosis. Neurovascular intact. Full, normal range of motion. Neuro: Awake and alert, GCS 15, oriented to person, place, time, and situation. Cranial nerves II-XII grossly intact. Motor strength 5/5 in all extremities. Sensory grossly intact. Cerebellar exam normal. Normal gait. 20:13 Respiratory: the patient does not display signs of respiratory distress, Respirations: normal, Breath sounds: wheezing: expiratory that is moderate, is heard in the left posterior lower lobe and right posterior lower lobe. Vital Signs: 18:34 BP 139 / 70; Pulse 80; Resp 18; Temp 98.7; Pulse Ox 100% on R/A; Pain 2/10; sg 21:00 BP 123 / 68; Pulse 72; Resp 16; Pulse Ox 100% on R/A; jb4 MDM: 19:46 Patient medically screened. kb 20:11 Data reviewed: vital signs, nurses notes. Data interpreted: Pulse oximetry: on room air kb is 100 %. Interpretation: normal. 20:42 Counseling: I had a detailed discussion with the patient and/or guardian regarding: the kb historical points, exam findings, and any diagnostic results supporting the discharge/admit diagnosis, lab results, the need for outpatient follow up, a family practitioner, to return to the emergency department if symptoms worsen or persist or if there are any questions or concerns that arise at home. 08/04 18:35 Order name: Flu; Complete Time: 19:24 kb Administered Medications: 20:05 Drug: DuoNeb (3:1) (2.5 mg - 0.5 mg) 3 ml Route: Nebulizer; jb4 21:02 Follow up: Response: No adverse reaction; Wheezing diminished jb4 20:05 Drug: predniSONE 40 mg Route: PO; jb4 21:02 Follow up: Response: No adverse reaction jb4 Disposition: 08/05 08:03 Co-signature as Attending Physician, Kang Gifford MD I agree with the assessment and ze plan of care. Disposition: 08/04/18 20:42 Discharged to Home. Impression: Asthma. - Condition is Stable. - Discharge Instructions: Asthma, Adult, [id number]. - Prescriptions for Prednisone 20 mg Oral Tablet - take 1 tablet by ORAL route once daily for 5 days; 5 tablet. Albuterol Sulfate 90 mcg/actuation - inhale 1-2 puff by INHALATION route every 4-6 hours; 1 Inhaler. - Medication Reconciliation Form, Thank You Letter, Antibiotic Education, Prescription Opioid Use form. - Follow up: Emergency Department; When: As needed; Reason: Worsening of condition. Follow up: Private Physician; When: 2 - 3 days; Reason: Recheck today's complaints, Continuance of care, Re-evaluation by your physician. Signatures: Dispatcher [employer] Liliane Noel, DAVID-C DAVID-Bubba Velazquez RN RN sg Anderson, Corey, MD MD cha Bryson, James, RN RN jb4 Corrections: (The following items were deleted from the chart) 08/04 21:02 20:42 08/04/2018 20:42 Discharged to Home. Impression: Asthma. Condition is Stable. jb4 Forms are Medication Reconciliation Form, Thank You Letter, Antibiotic Education, Prescription Opioid Use. Follow up: Emergency Department; When: As needed; Reason: Worsening of condition. Follow up: Private Physician; When: 2 - 3 days; Reason: Recheck today's complaints, Continuance of care, Re-evaluation by your physician. kb
--- NOTE | 2018-08-04 20:43 | ER ---
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 Transition of care: patient was not received from another setting of care. Onset of symptoms was August 04, 2018. Risk Assessment: Do you want to hurt yourself or someone else? Patient reports no desire to harm self or others. Initial Sepsis Screen: Does the patient meet any 2 criteria? No. Patient's initial sepsis screen is negative. Does the patient have a suspected source of infection? No. Patient's initial sepsis screen is negative. Care prior to arrival: None. 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 - Social history:: Smoking status: Patient/guardian denies using tobacco. - Ebola Screening: : Patient negative for fever greater than or equal to 101.5 degrees Fahrenheit, and additional compatible Ebola Virus Disease symptoms Patient denies exposure to infectious person Patient denies travel to an Ebola-affected area in the 21 days before illness onset No symptoms or risks identified at this time. Screenin:00 Abuse screen: Denies threats or abuse. Nutritional screening: No deficits noted. jb4 Tuberculosis screening: No symptoms or risk factors identified. Fall Risk None identified. Assessment: 20:00 General: Appears in no apparent distress. comfortable, Behavior is calm, cooperative, jb4 appropriate for age. Pain: Denies pain. Neuro: Level of Consciousness is awake, alert, obeys commands, Oriented to person, place, time, situation. Cardiovascular: Patient's skin is warm and dry. GI: No signs and/or symptoms were reported involving the gastrointestinal system. : No signs and/or symptoms were reported regarding the genitourinary system. EENT: Derm: Skin is intact, Skin is pink, warm \T\ dry. Musculoskeletal: Circulation, motion, and sensation intact. 21:00 Reassessment: Patient appears in no apparent distress at this time. Patient and/or jb4 family updated on plan of care and expected duration. Pain level reassessed. Patient is alert, oriented x 3, equal unlabored respirations, skin warm/dry/pink. Patient states feeling better. Respiratory: Airway is patent Respiratory effort is even, unlabored, Respiratory pattern is regular, symmetrical, Breath sounds are clear bilaterally. Vital Signs: 18:34 BP 139 / 70; Pulse 80; Resp 18; Temp 98.7; Pulse Ox 100% on R/A; Pain 2/10; sg 21:00 BP 123 / 68; Pulse 72; Resp 16; Pulse Ox 100% on R/A; jb4 ED Course: 18:03 Patient arrived in ED. as 18:17 Liliane Diallo FNP-C is [facility]. kb 18:17 Kang Gifford MD is Attending Physician. kb 18:34 Arm band placed on. sg 18:40 Triage completed. sg 19:51 Fredrick Galicia, VITA is Primary Nurse. jb4 20:00 Patient has correct armband on for positive identification. Bed in low position. Call jb4 light in reach. Side rails up X 1. Pulse ox on. NIBP on. 21:01 No provider procedures requiring assistance completed. Patient did not have IV access jb4 during this emergency room visit. Administered Medications: 20:05 Drug: DuoNeb (3:1) (2.5 mg - 0.5 mg) 3 ml Route: Nebulizer; jb4 21:02 Follow up: Response: No adverse reaction; Wheezing diminished jb4 20:05 Drug: predniSONE 40 mg Route: PO; jb4 21:02 Follow up: Response: No adverse reaction jb4 Outcome: 20:42 Discharge ordered by . chris 21:01 Discharged to home ambulatory. jb4 21:01 Condition: stable 21:01 Discharge instructions given to patient, Instructed on discharge instructions, follow up and referral plans. medication usage, Demonstrated understanding of instructions, follow-up care, medications, Prescriptions given X 2. 21:02 Patient left the ED. jb4 Signatures: Liliane Diallo, PLANT BREEDER SCIENTIST-C PLANT BREEDER SCIENTIST-Bubba Velazquez, RN RN Bridget Dalton as Fredrick Galicia, RN RN jb4
== END 2018-08-04 21:02 | disposition home or self-care (01) ==
LOC: ER 17:59
DX: J45.909 Unspecified asthma, uncomplicated (principal); E03.9 Hypothyroidism, unspecified; Z88.0 Allergy status to penicillin; Z88.1 Allergy status to other antibiotic agents; Z88.2 Allergy status to sulfonamides
CPT/HCPCS: 87804; 94640; 99284; J7512

== ENCOUNTER 2018-08-20 21:07 | Emergency (ER) | payer SELFPAY ==
--- OUTSIDE RECORDS SUMMARY | 2018-08-20 21:09 | XMS REPORT ---
:1985 [facility] Address [address] [place] [address] Dr. Marshall [address] [place] [id number] Care Team Providers Name Role Phone Unavailable Unavailable Unavailable Problems This patient has no known problems. Allergies, Adverse Reactions, Alerts This patient has no known allergies or adverse reactions. Medications This patient has no known medications.
[2018-08-20] MEDS ORDERED: ALBUTEROL 2.5 MG/3 ML NEB SOL ONE (21:46)
[2018-08-20] MEDS ORDERED: METHYLPREDNISOLONE 125 MG INJ ONE (21:46)
[2018-08-20 22:04] LABS: Protime INR 0.96
[2018-08-20 22:05] LABS: Urine Blood NEGATIVE (NEG); Urine Glucose NEGATIVE (NEG); Urine Protein NEGATIVE (NEG); Urine Specific Gravity 1.015 (1.005-1.030)
[2018-08-20 22:08] LABS: Absolute Lymphocytes (CBC) 2.2 K/uL (0.7-4.9); Absolute Monocytes 0.8 K/uL (0.1-1.3); Absolute Neutrophil 7.5 K/uL (1.8-8.0); Basophils % 1.2 % (0-1.3); Eosinophils % 5.6 % (0-4.4); Hematocrit 32.9 % (36.0-45.0); Lymphocytes % 19.6 % (15.3-44.8); MPV 9.5 fL (7.6-11.3); Monocytes % 6.7 % (3.3-12.3); RBC Red Blood Cell Count 3.71 M/uL (3.86-4.86)
[2018-08-20 22:26] LABS: ALT/SGPT 28 U/L (12-78); AST/SGOT 14 U/L (15-37); Albumin 3.9 g/dL (3.4-5.0); Alkaline Phosphatase 59 U/L (45-117); BUN Blood Urea Nitrogen 12 mg/dL (7-18); Bicarbonate 27 mmol/L (21-32); Bilirubin Direct < 0.1 mg/dL (0-0.2); Bilirubin Total 0.3 mg/dL (0.2-1.0); Glucose Level 98 mg/dL (74-106); Magnesium 2.2 mg/dL (1.8-2.4); NT PRO-BNP 13 pg/mL (<125); Potassium 3.9 mmol/L (3.5-5.1); Protein, Total 7.4 g/dL (6.4-8.2); Sodium Level 142 mmol/L (136-145); Troponin (Emerg Dept Use Only) < 0.02 ng/mL (0.0-0.045)
--- NOTE | 2018-08-20 23:02 | ER ---
Nurse's Notes [facility] Name: Rachael Knox Age: 33 yrs Sex: Female : 1985 Arrival Date: 08/20/2018 Time: 21:09 Bed 28 Private MD: Diagnosis: Asthma;Hypothyroidism, unspecified Presentation: 08/20 21:22 Presenting complaint: Patient states: i have both feet swelling, cough, shortness of mg2 breath and chest tightness (asthma) for 2 days now. denies fever. Transition of care: patient was not received from another setting of care. Onset of symptoms was August 19, 2018. Risk Assessment: Do you want to hurt yourself or someone else? Patient reports no desire to harm self or others. Initial Sepsis Screen: Does the patient meet any 2 criteria? No. Patient's initial sepsis screen is negative. Does the patient have a suspected source of infection? No. Patient's initial sepsis screen is negative. Care prior to arrival: None. 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 - Social history:: Smoking status: Patient/guardian denies using tobacco, Patient/guardian denies using alcohol, street drugs, IV drugs. - Ebola Screening: : No symptoms or risks identified at this time. Screenin:30 Abuse screen: Denies threats or abuse. Denies injuries from another. Nutritional mg2 screening: No deficits noted. Tuberculosis screening: No symptoms or risk factors identified. Fall Risk None identified. Assessment: 21:28 General: Appears in no apparent distress. comfortable, Behavior is calm, cooperative. mg2 Pain: Complains of pain in right foot and left foot, chest Pain does not radiate. Pain currently is 1 out of 10 on a pain scale. Quality of pain is described as aching, Pain began gradually, 2-3 days ago. Is intermittent. Neuro: Level of Consciousness is awake, alert, obeys commands, Oriented to person, place, time, situation. Cardiovascular: Capillary refill < 3 seconds Patient's skin is warm and dry. Respiratory: Reports shortness of breath at rest cough that is non-productive, Airway is patent Respiratory effort is even, unlabored, Respiratory pattern is regular, symmetrical. GI: No signs and/or symptoms were reported involving the gastrointestinal system. : No signs and/or symptoms were reported regarding the genitourinary system. EENT: No signs and/or symptoms were reported regarding the EENT system. Derm: Skin is intact, is healthy with good turgor, Skin is pink, warm \T\ dry. normal. Musculoskeletal: Circulation, motion, and sensation intact. Capillary refill < 3 seconds. Vital Signs: 21:23 BP 145 / 103; Pulse 92; Resp 18; Temp 98.2; Pulse Ox 100% on R/A; Weight 151.95 kg (R); mg2 Height 5 ft. 5 in. (165.10 cm); Pain 0/10; 23:14 BP 135 / 78; Pulse 89; Resp 18; Pulse Ox 100% on R/A; Pain 0/10; mg2 21:23 Body Mass Index 55.75 (151.95 kg, 165.10 cm) mg2 ED Course: 21:09 Patient arrived in ED. mr 21:21 Cornell Moore PA is PHCP. jr8 21:21 Kang Gifford MD is Attending Physician. jr8 21:21 Ciaran Leigh, VITA is Primary Nurse. mg2 21:23 Triage completed. mg2 21:28 Arm band placed on. mg2 21:31 Patient has correct armband on for positive identification. Pulse ox on. NIBP on. Door mg2 closed. Warm blanket given. 21:31 No provider procedures requiring assistance completed. Patient maintains SpO2 mg2 saturation greater than 95% on room air. 22:03 Inserted saline lock: 22 gauge in left forearm, using aseptic technique. Blood mg2 collected. 22:11 XRAY Chest (1 view) In Process Unspecified. EDMS 23:14 IV discontinued, intact, bleeding controlled, No redness/swelling at site. Pressure mg2 dressing applied. Administered Medications: 22:01 Drug: SOLU-Medrol 125 mg Route: IVP; Site: left femoral; mg2 22:48 Follow up: Response: No adverse reaction; Marked relief of symptoms mg2 22:02 Drug: Albuterol 2.5 mg Route: Inhalation; mg2 22:48 Follow up: Response: No adverse reaction; Marked relief of symptoms mg2 Outcome: 23:01 Discharge ordered by MD. reno 23:15 Discharged to home ambulatory, with family. mg2 23:15 Condition: stable 23:15 Discharge instructions given to patient, family, Instructed on discharge instructions, follow up and referral plans. medication usage, Demonstrated understanding of instructions, follow-up care, medications, Prescriptions given X 3. 23:16 Patient left the ED. mg2 Signatures: Dispatcher [employer] Anat Ackerman Josh, PA PA jr8 Ciaran Leigh, RN RN mg2
--- NOTE | 2018-08-20 23:02 | EDPHYS ---
Physician Documentation [facility] Name: Rachael Knox Age: 33 yrs Sex: Female : 1985 Arrival Date: 08/20/2018 Time: 21:09 Bed 28 Private MD: [facility]ER[facility] Physician Kang Gifford HPI: 08/20 21:57 This 33 yrs old Female presents to ER via Ambulatory with complaints of Chest jr8 Tightness, Shortness Of Breath, Feet Swelling. 21:57 Onset: The symptoms/episode began/occurred gradually, 1 day(s) ago. Associated signs jr8 and symptoms: Pertinent positives: cough. Modifying factors: The patient symptoms are alleviated by nothing, the patient symptoms are aggravated by nothing. It is unknown whether or not the patient has had similar symptoms in the past. The patient has not recently seen a physician. Patient with history of asthma. Stated that she feels that it is acting up. Also complains of feet swelling. Stated that she has had this before when her thyroid was low. [employer]ER: 21:23 LMP -3 weeks ago mg2 Historical: - Allergies: 21:27 Bactrim; mg2 21:27 mycins; mg2 21:27 PENICILLINS; mg2 21:27 Sulfa (Sulfonamide Antibiotics); mg2 - Home Meds: 21:27 lisinopril Oral [Active]; Synthroid 150 mcg Oral tab 1 tab once daily [Active]; mg2 - PMHx: 21:27 Bipolar disorder; EDEMA; Hypertension; Hypothyroidism; mg2 - PSHx: 21:27 Tonsillectomy; Adenoids; Tubal ligation; ; d and C; mg2 - Immunization history:: Flu vaccine is not up to date. - Social history:: Smoking status: Patient/guardian denies using tobacco, Patient/guardian denies using alcohol, street drugs, IV drugs. - Ebola Screening: : No symptoms or risks identified at this time. ROS: 21:57 Eyes: Negative for injury, pain, redness, and discharge, ENT: Negative for injury, jr8 pain, and discharge, Neck: Negative for injury, pain, and swelling, Abdomen/GI: Negative for abdominal pain, nausea, vomiting, diarrhea, and constipation, Back: Negative for injury and pain, MS/Extremity: Negative for injury and deformity, Skin: Negative for injury, rash, and discoloration, Neuro: Negative for headache, weakness, numbness, tingling, and seizure. 21:57 Cardiovascular: Positive for chest pain, edema, Negative for orthopnea, palpitations. 21:57 Respiratory: Positive for cough, shortness of breath, wheezing. Exam: 21:57 Eyes: Pupils equal round and reactive to light, extra-ocular motions intact. Lids and jr8 lashes normal. Conjunctiva and sclera are non-icteric and not injected. Cornea within normal limits. Periorbital areas with no swelling, redness, or edema. ENT: Nares patent. No nasal discharge, no septal abnormalities noted. Tympanic membranes are normal and external auditory canals are clear. Oropharynx with no redness, swelling, or masses, exudates, or evidence of obstruction, uvula midline. Mucous membranes moist. Neck: Trachea midline, no thyromegaly or masses palpated, and no cervical lymphadenopathy. Supple, full range of motion without nuchal rigidity, or vertebral point tenderness. No Meningismus. Abdomen/GI: Soft, non-tender, with normal bowel sounds. No distension or tympany. No guarding or rebound. No evidence of tenderness throughout. Back: No spinal tenderness. No costovertebral tenderness. Full range of motion. Skin: Warm, dry with normal turgor. Normal color with no rashes, no lesions, and no evidence of cellulitis. MS/ Extremity: Pulses equal, no cyanosis. Neurovascular intact. Full, normal range of motion. Neuro: Awake and alert, GCS 15, oriented to person, place, time, and situation. Cranial nerves II-XII grossly intact. Motor strength 5/5 in all extremities. Sensory grossly intact. Cerebellar exam normal. Normal gait. 21:57 Cardiovascular: Rate: normal, Rhythm: regular, Pulses: Pulses are 2+ in right radial artery and left radial artery. Heart sounds: normal, normal S1and S2, no S3 or S4, no murmur, no rub, no gallop, Edema: 1+ edema to level of left foot, left toes, right foot and right toes. 21:57 Respiratory: the patient does not display signs of respiratory distress, Respirations: normal, symetrical, no use of accessory muscles, no grunting, no evidence of nasal flaring, no prolonged exhalations, no pursed lip breathing, no retractions, no shallow respirations, no splinting, no tachypnea, Breath sounds: wheezing: expiratory that is mild, is heard in the right posterior upper lobe, right posterior middle lobe and right posterior lower lobe. 22:58 ECG was reviewed by the Attending Physician. jr8 Vital Signs: 21:23 BP 145 / 103; Pulse 92; Resp 18; Temp 98.2; Pulse Ox 100% on R/A; Weight 151.95 kg (R); mg2 Height 5 ft. 5 in. (165.10 cm); Pain 0/10; 23:14 BP 135 / 78; Pulse 89; Resp 18; Pulse Ox 100% on R/A; Pain 0/10; mg2 21:23 Body Mass Index 55.75 (151.95 kg, 165.10 cm) mg2 MDM: 21:21 Patient medically screened. jr8 22:57 Data reviewed: vital signs, nurses notes, lab test result(s), EKG, radiologic studies, jr8 plain films. Data interpreted: cafeteria monitor: rate is 82 beats/min, rhythm is normal sinus rhythm, with no ectopy, Interpretation: normal rate, Pulse oximetry: on room air is 100 %. Counseling: I had a detailed discussion with the patient and/or guardian regarding: the historical points, exam findings, and any diagnostic results supporting the discharge/admit diagnosis, lab results, radiology results, the need for outpatient follow up, a family practitioner, [employer] . Response to treatment: the patient's symptoms have markedly improved after treatment. 23:00 ED course: Patient with Hypothyroidism and pretibial edema secondary to hypothyroid. jr8 Will adjust medicine now. Urged patient to f/u with PCP honey. Patient understood and would . 08/20 21:32 Order name: Basic Metabolic Panel; Complete Time: 22:32 8 08/20 21:32 Order name: CBC with Diff; Complete Time: 22:25 [facility] 08/20 21:32 Order name: LFT's; Complete Time: 22: 8 08/20 21:32 Order name: Magnesium; Complete Time: 22:8 08/20 21:32 Order name: NT PRO-BNP; Complete Time: 22:32 8 08/20 21:32 Order name: PT-INR; Complete Time: 22:25 [facility] 08/20 21:32 Order name: Troponin (emerg Dept Use Only); Complete Time: 22:32 jr8 03/29 21:32 Order name: XRAY Chest (1 view) 08/20 21:32 Order name: TSH; Complete Time: 08/20 21:32 Order name: T4 Free; Complete Time: 08/20 22:00 Order name: Urine Dipstick--Ancillary (enter results); Complete Time: :08/20 22:00 Order name: Urine --Ancillary (enter results); Complete Time: 22:08/20 21:32 Order name: Cardiac monitoring; Complete Time: :08/20 21:32 Order name: EKG - Nurse/Tech; Complete Time: :08/20 21:32 Order name: IV Saline Lock; Complete Time: :08/20 21:32 Order name: Labs collected and sent; Complete Time: :08/20 21:32 Order name: O2 Per Protocol; Complete Time: :08/20 21:32 Order name: O2 Sat Monitoring; Complete Time: : EC:58 Rate is 82 beats/min. Rhythm is regular, Normal Sinus Rhythm. QRS Seymour is Normal. ME jr8 interval is normal at 146 msec. QRS interval is normal at 104 msec. QT interval is normal at 425 msec. No Q waves. T waves are Flattened in leads II, III, aVF, V4, V5, V6. No ST changes noted. Clinical impression: NSR w/ Non-specific ST/T Changes. Interpreted by me. Reviewed by me. Administered Medications: 22:01 Drug: SOLU-Medrol 125 mg Route: IVP; Site: left femoral; mg2 22:48 Follow up: Response: No adverse reaction; Marked relief of symptoms mg2 22:02 Drug: Albuterol 2.5 mg Route: Inhalation; mg2 22:48 Follow up: Response: No adverse reaction; Marked relief of symptoms mg2 Disposition: 08/20/18 23:01 Discharged to Home. Impression: Asthma, Hypothyroidism, unspecified. - Condition is Stable. - Discharge Instructions: Hypothyroidism, Asthma, Acute Bronchospasm. - Prescriptions for Synthroid 25 mcg Oral tablet - take 1 tablet by ORAL route once daily for 14 days then go up to 50 mcg QD; 60 tablet. Prednisone 20 mg Oral Tablet - take 1 tablet by ORAL route once daily for 5 days; 5 tablet. Albuterol Sulfate 90 mcg/actuation - inhale 1-2 puff by INHALATION route every 4-6 hours; 1 Inhaler. - Medication Reconciliation Form, Thank You Letter, Antibiotic Education, Prescription Opioid Use form. - Follow up: Private Physician; When: 2 - 3 days; Reason: Recheck today's complaints, Continuance of care, Re-evaluation by your physician. - Problem is new. - Symptoms have improved. Addendum: 08/23/2018 11:13 Co-signature as Attending Physician, Kang Gifford MD I agree with the assessment and c ornelas plan of care. Signatures: Dispatcher [employer] EDKang Gutierres MD MD cha Roszak, Josh, PA PA jr8 Ciaran Liegh, RN RN mg2 Corrections: (The following items were deleted from the chart) 08/20 23:16 23:01 08/20/2018 23:01 Discharged to Home. Impression: Asthma; Hypothyroidism, mg2 unspecified. Condition is Stable. Forms are Medication Reconciliation Form, Thank You Letter, Antibiotic Education, Prescription Opioid Use. Follow up: Private Physician; When: 2 - 3 days; Reason: Recheck today's complaints, Continuance of care, Re-evaluation by your physician. Problem is new. Symptoms have improved. jr8
--- NOTE | 2018-08-21 10:20 | RAD REPORT ---
EXAM DESCRIPTION: RAD - Chest Single View - 08/20/2018 10:11 pm CLINICAL HISTORY: DYSPNEA Chest pain. COMPARISON: Chest Pa And Lat (2 Views) dated 06/14/2018; Chest Pa And Lat (2 Views) dated 02/22/2018; Chest Pa And Lat (2 Views) dated 02/18/2018; Chest Pa And Lat (2 Views) dated 01/14/2016 FINDINGS: Portable technique limits examination quality. The lungs are grossly clear. The patient's chin obscures portion of both lung apices. The heart is no rmal in size. No displaced fractures. IMPRESSION: No acute intrathoracic process suspected.
== END 2018-08-20 23:16 | disposition home or self-care (01) ==
LOC: ER 21:07
DX: J45.909 Unspecified asthma, uncomplicated (principal); E03.9 Hypothyroidism, unspecified; I10 Essential (primary) hypertension; F31.9 Bipolar disorder, unspecified; Z88.0 Allergy status to penicillin; Z88.1 Allergy status to other antibiotic agents; Z88.2 Allergy status to sulfonamides; Z88.3 Allergy status to other anti-infective agents
CPT/HCPCS: 36415; 71045; 80048; 80076; 81003; 81025; 83735; 83880; 84439; 84443; 84484; 85025; 85610; 96374; 99285; J2930

== ENCOUNTER 2018-09-14 16:21 | Emergency (ER) | payer SELFPAY ==
--- OUTSIDE RECORDS SUMMARY | 2018-09-14 16:23 | XMS REPORT ---
:1985 [facility] Address [address] [place] [address] Dr. Marshall [address] [place] [id number] Care Team Providers Name Role Phone Unavailable Unavailable Unavailable Problems This patient has no known problems. Allergies, Adverse Reactions, Alerts This patient has no known allergies or adverse reactions. Medications This patient has no known medications.
[2018-09-14] MEDS ORDERED: IPRATROPIUM BROM 0.5MG/2.5ML ONE ×2 (16:52→18:48)
[2018-09-14] MEDS ORDERED: ALBUTEROL 2.5 MG/3 ML NEB SOL ONE ×2 (16:52→18:48)
[2018-09-14] MEDS ORDERED: METHYLPREDNISOLONE 125 MG INJ ONE (16:52)
[2018-09-14] MEDS ORDERED: Magnesium Sulfate 2gm IVPB 2 G/50 ML BAG IV ONE (17:07)
--- NOTE | 2018-09-14 17:38 | RAD REPORT ---
EXAM DESCRIPTION: RAD - Chest Pa And Lat (2 Views) - 09/14/2018 5:18 pm CLINICAL HISTORY: Shortness of breath COMPARISON: August 20 TECHNIQUE: PA and lateral views of the chest were obtained. FINDINGS: The lungs are slightly underinflated. Lung markings are similar to comparison when adjusti ng for the shallow inspiration. Heart size is normal and central vasculature is within normal limits . No pleural effusion or pneumothorax seen. No acute bony finding noted. No aortic abnormality. IMPRESSION: No acute cardiopulmonary process. No significant interval change.
--- NOTE | 2018-09-14 18:17 | EDPHYS ---
Physician Documentation [facility] Name: Rachael Knox Age: 33 yrs Sex: Female : 1985 Arrival Date: 09/14/2018 Time: 16:23 Bed 7 Private MD: ED Physician Joselo Bhagat HPI: 09/14 16:59 This 33 yrs old Female presents to ER via Ambulatory with complaints of wa Shortness Of Breath. 16:59 The patient has shortness of breath at rest, and the patient has a history of asthma. wa Onset: The symptoms/episode began/occurred 1 week(s) ago. Duration: The symptoms are continuous, and are steadily getting worse. The patient's shortness of breath is aggravated by nothing, is alleviated by nothing. Associated signs and symptoms: Pertinent positives: non-productive cough, congestion and runny nose. Severity of symptoms: At their worst the symptoms were moderate in the emergency department the symptoms are unchanged. The patient has experienced similar episodes in the past, multiple times. The patient has not recently seen a physician. Historical: - Allergies: 16:25 Bactrim; sv 16:25 mycins; sv 16:25 PENICILLINS; sv 16:25 Sulfa (Sulfonamide Antibiotics); sv - PMHx: 16:25 Bipolar disorder; EDEMA; Hypertension; Hypothyroidism; sv - PSHx: 16:25 Tonsillectomy; Adenoids; Tubal ligation; ; d and C; sv - Immunization history:: Adult Immunizations unknown. - Social history:: Smoking status: Patient/guardian denies using tobacco, never smoked, Patient/guardian denies using. - Family history:: not pertinent. - Ebola Screening: : No symptoms or risks identified at this time. - Hospitalizations: : No recent hospitalization is reported. ROS: 17:01 Constitutional: Negative for fever, chills, and weight loss, Eyes: Negative for injury, wa pain, redness, and discharge, ENT: Negative for injury, pain, and discharge, Neck: Negative for injury, pain, and swelling, Cardiovascular: Negative for chest pain, palpitations, and edema, Abdomen/GI: Negative for abdominal pain, nausea, vomiting, diarrhea, and constipation, Back: Negative for injury and pain, : Negative for injury, bleeding, discharge, and swelling, MS/Extremity: Negative for injury and deformity, Skin: Negative for injury, rash, and discoloration, Neuro: Negative for headache, weakness, numbness, tingling, and seizure, Psych: Negative for depression, anxiety, suicide ideation, homicidal ideation, and hallucinations. 17:01 Respiratory: Positive for cough, with no reported sputum, shortness of breath, at rest. 17:01 All other systems are negative. Exam: 17:02 Constitutional: This is a well developed, well nourished patient who is awake, alert, wa and in no acute distress. Head/Face: Normocephalic, atraumatic. Eyes: Pupils equal round and reactive to light, extra-ocular motions intact. Lids and lashes normal. Conjunctiva and sclera are non-icteric and not injected. Cornea within normal limits. Periorbital areas with no swelling, redness, or edema. ENT: Nares patent. No nasal discharge, no septal abnormalities noted. Tympanic membranes are normal and external auditory canals are clear. Oropharynx with no redness, swelling, or masses, exudates, or evidence of obstruction, uvula midline. Mucous membranes moist. Neck: Trachea midline, no thyromegaly or masses palpated, and no cervical lymphadenopathy. Supple, full range of motion without nuchal rigidity, or vertebral point tenderness. No Meningismus. Chest/axilla: Normal chest wall appearance and motion. Nontender with no deformity. No lesions are appreciated. Cardiovascular: Regular rate and rhythm with a normal S1 and S2. No gallops, murmurs, or rubs. Normal PMI, no JVD. No pulse deficits. Abdomen/GI: Soft, non-tender, with normal bowel sounds. No distension or tympany. No guarding or rebound. No evidence of tenderness throughout. Back: No spinal tenderness. No costovertebral tenderness. Full range of motion. Skin: Warm, dry with normal turgor. Normal color with no rashes, no lesions, and no evidence of cellulitis. MS/ Extremity: Pulses equal, no cyanosis. Neurovascular intact. Full, normal range of motion. Neuro: Awake and alert, GCS 15, oriented to person, place, time, and situation. Cranial nerves II-XII grossly intact. Motor strength 5/5 in all extremities. Sensory grossly intact. Cerebellar exam normal. Normal gait. Psych: Awake, alert, with orientation to person, place and time. Behavior, mood, and affect are within normal limits. 17:02 Respiratory: the patient does not display signs of respiratory distress, Respirations: normal, Breath sounds: decreased breath sounds, that are moderate, are scattered, wheezing: that is moderate, is scattered, is heard diffusely, Respiratory rate: mild tachypnea Vital Signs: 16:25 BP 133 / 86; Pulse 95; Resp 22; Temp 97; Pulse Ox 92% on R/A; Weight 152.41 kg; Height sv 5 ft. 5 in. (165.10 cm); Pain 0/10; 16:25 Body Mass Index 55.91 (152.41 kg, 165.10 cm) sv MDM: 16:28 Patient medically screened. ok 17:04 Differential diagnosis: asthma, Bronchitis reactive airway disease. ok 17:52 Data reviewed: vital signs, nurses notes, radiologic studies, CXR negative. ok 18:15 Test interpretation: by ED physician or midlevel provider: CXR nml. ok 18:16 Response to treatment: the patient's symptoms have markedly improved after treatment. ok ED course: improved with ED interventions. see orders. will d/c with meds and close f/u. 09/14 16:37 Order name: Chest Pa And Lat (2 Views) XRAY; Complete Time: 17:52 ok 09/14 16:37 Order name: IV Start; Complete Time: 16:53 ok 09/14 16:37 Order name: Cardiac monitoring; Complete Time: 16:53 ok Administered Medications: 16:40 Drug: Albuterol - atroVENT (3:1) (2.5 mg - 0.5 mg) 3 ml Route: Nebulizer; [facility] 17:00 Follow up: Response: No adverse reaction [facility] 16:52 Drug: SOLU-Medrol 125 mg Route: IVP; Site: right antecubital; [facility] 17:00 Follow up: Response: No adverse reaction [facility] 16:59 Drug: Magnesium Sulfate 2 grams {Note: Infusion administered over [address] blair Leola.} Route: IVPB; Infused Over: 1 hrs; Site: right antecubital; 18:00 Follow up: IV Status: Completed infusion [facility] 18:39 Drug: Albuterol - atroVENT (3:1) (2.5 mg - 0.5 mg) 3 ml Route: Nebulizer; jl7 18:52 Follow up: Response: No adverse reaction jl7 Disposition: 09/14/18 18:17 Discharged to Home. Impression: Acute Asthma Exacerbation. - Condition is Stable. - Prescriptions for Albuterol Sulfate 2.5 mg /3 mL (0.083 %) Inhalation Solution for Nebulization - inhale 1 unit by NEBULIZATION route every 8 hours As needed; 1 box. Prednisone 20 mg Oral Tablet - take 2 tablet by ORAL route once daily for 5 days; 10 tablet. Albuterol Sulfate 90 mcg/actuation - inhale 1-2 puff by INHALATION route every 4-6 hours; 1 Inhaler. - Work release form, Medication Reconciliation Form, Thank You Letter, Antibiotic Education, Prescription Opioid Use form. - Follow up: Private Physician; When: 2 - 3 days; Reason: Recheck today's complaints. - Problem is an acute exacerbation. - Symptoms have improved. - Notes: take medication as prescribed. return here immediately for rapidly worsening difficulty in breathing and or chest pain and or dizziness Signatures: Dispatcher [employer] Georgia Cates RN RN Cristhian Kelley RN RN jl7 Joselo Bhagat MD MD wa Corrections: (The following items were deleted from the chart) 18:52 18:17 09/14/2018 18:17 Discharged to Home. Impression: Acute Asthma Exacerbation. jl7 Condition is Stable. Forms are Medication Reconciliation Form, Thank You Letter, Antibiotic Education, Prescription Opioid Use. Follow up: Private Physician; When: 2 - 3 days; Reason: Recheck today's complaints. Problem is an acute exacerbation. Symptoms have improved. wa
--- NOTE | 2018-09-14 18:17 | ER ---
Nurse's Notes [facility] Name: Rachael Knox Age: 33 yrs Sex: Female : 1985 Arrival Date: 09/14/2018 Time: 16:23 Bed 7 Private MD: Diagnosis: Acute Asthma Exacerbation Presentation: 09/14 16:24 Presenting complaint: Patient states: SOB x 1 week, has been using inhalers with no sv relief. Hx asthma. Transition of care: patient was not received from another setting of care. Onset of symptoms was September 07, 2018. Care prior to arrival: None. 16:24 Method Of Arrival: Ambulatory sv 16:24 Acuity: DARSHAN 3 sv 17:00 Risk Assessment: Do you want to hurt yourself or someone else? Patient reports no jl7 desire to harm self or others. Initial Sepsis Screen: Does the patient meet any 2 criteria? No. Patient's initial sepsis screen is negative. Does the patient have a suspected source of infection? No. Patient's initial sepsis screen is negative. Historical: - Allergies: 16:25 Bactrim; sv 16:25 mycins; sv 16:25 PENICILLINS; sv 16:25 Sulfa (Sulfonamide Antibiotics); sv - PMHx: 16:25 Bipolar disorder; EDEMA; Hypertension; Hypothyroidism; sv - PSHx: 16:25 Tonsillectomy; Adenoids; Tubal ligation; ; d and C; sv - Immunization history:: Adult Immunizations unknown. - Social history:: Smoking status: Patient/guardian denies using tobacco, never smoked, Patient/guardian denies using. - Family history:: not pertinent. - Ebola Screening: : No symptoms or risks identified at this time. - Hospitalizations: : No recent hospitalization is reported. Screenin:06 Abuse screen: Denies threats or abuse. Denies injuries from another. Nutritional jl7 screening: No deficits noted. Tuberculosis screening: No symptoms or risk factors identified. Fall Risk IV access (20 points). Total Brink Fall Scale indicates No Risk (0-24 pts). Assessment: 16:45 General: Appears in no apparent distress. uncomfortable, Behavior is calm, cooperative, jl7 appropriate for age. Pain: Denies pain. Neuro: Level of Consciousness is awake, alert, obeys commands, Oriented to person, place, time, situation. Cardiovascular: Rhythm is regular. Respiratory: Airway is patent Respiratory effort is even, unlabored, Respiratory pattern is symmetrical, tachypnea Breath sounds with wheezes bilaterally. Derm: Skin is pink, warm \T\ dry. 17:45 Reassessment: Patient appears in no apparent distress at this time. Patient and/or jl7 family updated on plan of care and expected duration. Pain level reassessed. Patient is alert, oriented x 3, equal unlabored respirations, skin warm/dry/pink. Patient states feeling better. 18:35 Reassessment: Pt will be discharged once Neb treatment is done. jl7 Vital Signs: 16:25 BP 133 / 86; Pulse 95; Resp 22; Temp 97; Pulse Ox 92% on R/A; Weight 152.41 kg; Height sv 5 ft. 5 in. (165.10 cm); Pain 0/10; 16:25 Body Mass Index 55.91 (152.41 kg, 165.10 cm) sv ED Course: 16:23 Patient arrived in ED. as 16:25 Triage completed. sv 16:25 Arm band placed on. sv 16:28 Joselo Bhagat MD is Attending Physician. wa 16:33 Cristhian Kelley RN is Primary Nurse. jl7 16:55 Inserted saline lock: 22 gauge in right antecubital area, using aseptic technique. jl7 16:59 Radiology exam delayed due to patient receiving breathing treatment at this time. ml 17:06 Patient has correct armband on for positive identification. Bed in low position. Call jl7 light in reach. Side rails up X 1. cafeteria monitor on. Pulse ox on. NIBP on. 17:17 Chest Pa And Lat (2 Views) XRAY In Process Unspecified. EDMS 18:50 No provider procedures requiring assistance completed. IV discontinued, intact, jl7 bleeding controlled, No redness/swelling at site. Pressure dressing applied. Administered Medications: 16:40 Drug: Albuterol - atroVENT (3:1) (2.5 mg - 0.5 mg) 3 ml Route: Nebulizer; jl7 17:00 Follow up: Response: No adverse reaction jl7 16:52 Drug: SOLU-Medrol 125 mg Route: IVP; Site: right antecubital; jl7 17:00 Follow up: Response: No adverse reaction jl7 16:59 Drug: Magnesium Sulfate 2 grams {Note: Infusion administered over [address] johnnie Bhagat.} Route: IVPB; Infused Over: 1 hrs; Site: right antecubital; 18:00 Follow up: IV Status: Completed infusion 18:39 Drug: Albuterol - atroVENT (3:1) (2.5 mg - 0.5 mg) 3 ml Route: Nebulizer; 18:52 Follow up: Response: No adverse reaction Outcome: 18:17 Discharge ordered by MD. good 18:50 Discharged to home ambulatory. 18:50 Condition: stable 18:50 Discharge instructions given to patient, Instructed on discharge instructions, follow up and referral plans. medication usage, Demonstrated understanding of instructions, follow-up care, medications, Prescriptions given X 3. 18:52 Patient left the ED. jl Signatures: Dispatcher [employer] EDMS Georgia Patel RN RN sv Martinez, Amelia as Lopez, Melissa ml Leal, Jahala, RN RN jl7 AppiahJoselo MD MD wa
== END 2018-09-14 18:52 | disposition home or self-care (01) ==
LOC: ER 16:21
DX: J45.901 Unspecified asthma with (acute) exacerbation (principal); F31.9 Bipolar disorder, unspecified; I10 Essential (primary) hypertension; E03.9 Hypothyroidism, unspecified; Z88.1 Allergy status to other antibiotic agents; Z88.0 Allergy status to penicillin; Z88.2 Allergy status to sulfonamides
CPT/HCPCS: 71046; 94640; 96365; 96375; 99285; J2930; J3475

== ENCOUNTER 2018-10-04 13:36 | Emergency (ER) | payer SELFPAY ==
--- OUTSIDE RECORDS SUMMARY | 2018-10-04 13:39 | XMS REPORT ---
:1985 [facility] Address [address] [place] [address] Dr. [address] [place] [id number] Care Team Providers Name Role Phone Unavailable Unavailable Unavailable Problems This patient has no known problems. Allergies, Adverse Reactions, Alerts This patient has no known allergies or adverse reactions. Medications This patient has no known medications.
--- NOTE | 2018-10-04 16:02 | RAD REPORT ---
EXAM DESCRIPTION: RAD - Chest Pa And Lat (2 Views) - 10/04/2018 3:57 pm CLINICAL HISTORY: COUGH Chest pain. COMPARISON: Chest Pa And Lat (2 Views) dated 09/14/2018; Chest Single View dated 08/20/2018; Chest Pa And Lat (2 Views) dated 06/14/2018; Chest Pa And Lat (2 Views) dated 02/22/2018 FINDINGS: The lungs are clear. The heart is normal in size. No displaced fractures. IMPRESSION: No acute or concerning finding suspected.
[2018-10-04] MEDS ORDERED: IPRATROPIUM BROM 0.5MG/2.5ML ONE (18:12)
[2018-10-04] MEDS ORDERED: predniSONE 20 MG TAB ONE (18:12)
[2018-10-04] MEDS ORDERED: ALBUTEROL 2.5 MG/3 ML NEB SOL ONE (18:12)
--- NOTE | 2018-10-04 19:47 | EDPHYS ---
Physician Documentation [facility] Name: Rachael Knox Age: 33 yrs Sex: Female : 1985 Arrival Date: 10/04/2018 Time: 13:39 Bed 19 Private MD: None, None ED Physician Junito uStton HPI: 10/04 17:40 This 33 yrs old Female presents to ER via Ambulatory with complaints of cp Asthma Exacerbation, Shortness Of Breath. 17:40 The patient presents to the emergency department with wheezing, Current therapy: cp albuterol inhaler, the patient was reported to have audible wheezing, chest congestion, productive cough. 17:40 Onset: The symptoms/episode began/occurred gradually, and became worse today. cp Associated signs and symptoms: Pertinent negatives: chest pain, fever, headache, vomiting. Severity of symptoms: in the emergency department the symptoms are unchanged despite home interventions. Historical: - Allergies: 14:03 Bactrim; sv 14:03 mycins; sv 14:03 PENICILLINS; sv 14:03 Sulfa (Sulfonamide Antibiotics); sv - Immunization history:: Adult Immunizations up to date. - Ebola Screening: : Patient denies travel to an Ebola-affected area in the 21 days before illness onset. ROS: 17:50 Constitutional: Negative for body aches, chills, fever, poor PO intake. cp 17:50 Eyes: Negative for injury, pain, redness, and discharge. cp 17:50 ENT: Negative for drainage from ear(s), ear pain, sinus congestion, difficulty swallowing, difficulty handling secretions. 17:50 Cardiovascular: Negative for chest pain, edema, palpitations. 17:50 Respiratory: Positive for cough, shortness of breath, wheezing. 17:50 Abdomen/GI: Negative for abdominal pain, nausea, vomiting, and diarrhea, constipation. 17:50 Back: Negative for radiated pain. 17:50 : Negative for urinary symptoms. 17:50 Skin: Negative for rash. 17:50 Neuro: Negative for altered mental status, dizziness, headache, syncope, weakness. 17:50 All other systems are negative. Exam: 17:55 Constitutional: The patient appears in no acute distress, alert, awake, cp non-diaphoretic, non-toxic, well developed, well nourished, obese. 17:55 Head/Face: Normocephalic, atraumatic. cp 17:55 Eyes: Periorbital structures: appear normal, Conjunctiva: normal, no exudate, no injection, Sclera: no appreciated abnormality, Lids and lashes: appear normal, bilaterally. 17:55 ENT: External ear(s): are unremarkable, Ear canal(s): are normal, clear, TM's: bulging, is not appreciated, bilaterally, dullness, bilaterally, erythema, is not appreciated, bilaterally, Nose: is normal, Mouth: Lips: moist, Oral mucosa: pink and intact, moist, Posterior pharynx: Airway: no evidence of obstruction, patent, Tonsils: no enlargement, no exudate, Uvula: midline, swelling, is not appreciated, erythema, that is mild, exudate, is not appreciated. 17:55 Neck: ROM/movement: is normal, is supple, without pain, no range of motions limitations, no meningismus, no nuchal rigidity, Lymph nodes: no appreciated lymphadenopathy. 17:55 Chest/axilla: Inspection: normal, Palpation: is normal, no crepitus, no tenderness. 17:55 Cardiovascular: Rate: normal, Rhythm: regular, Edema: is not appreciated, JVD: is not appreciated. 17:55 Respiratory: the patient does not display signs of respiratory distress, Respirations: labored breathing, is not present, splinting, is not noted, tachypnea, is not appreciated, Breath sounds: decreased breath sounds, are not appreciated, stridor, is not appreciated, wheezing: that is mild, is heard diffusely. 17:55 Abdomen/GI: Exam negative for discomfort, distension, guarding, Inspection: obese 17:55 Back: pain, is absent, ROM is normal. 17:55 Skin: cellulitis, is not appreciated, no rash present. Vital Signs: 14:03 BP 139 / 87; Pulse 78; Resp 22; Temp 98.3; Pulse Ox 95% ; Weight 151.95 kg; Height 5 sv ft. 5 in. (165.10 cm); Pain 5/10; 17:30 BP 144 / 86; Pulse 86; Resp 18; Temp 98.2(TE); Pulse Ox 95% on R/A; aj1 18:37 BP 135 / 87; Pulse 88; Resp 22; Pulse Ox 100% on Nebulizer Mask; aj1 14:03 Body Mass Index 55.75 (151.95 kg, 165.10 cm) sv MDM: 17:36 Patient medically screened. cp 18:00 Differential diagnosis: URI, pneumonia, asthma exacerbation. cp 19:45 Antibiotic administration: Not indicated, the patient's primary pathology is reactive cp airway disease. 19:45 Data reviewed: vital signs, nurses notes, lab test result(s), radiologic studies, plain cp films. Test interpretation: by ED physician or midlevel provider: plain radiologic studies. Counseling: I had a detailed discussion with the patient and/or guardian regarding: the historical points, exam findings, and any diagnostic results supporting the discharge/admit diagnosis, lab results, radiology results, the need for outpatient follow up, a family practitioner, to return to the emergency department if symptoms worsen or persist or if there are any questions or concerns that arise at home. Response to treatment: the patient's symptoms have markedly improved after treatment, VSS. Cough and wheezes markedly improved with treatment, and as a result, I will discharge patient. 10/04 19:37 Order name: Urine Dipstick--Ancillary (enter results) [facility] 10/04 19:37 Order name: Urine --Ancillary (enter results) [facility] 10/04 15:10 Order name: Chest Pa And Lat (2 Views) XRAY; Complete Time: 18:31 sv 10/04 18:31 Interpretation: Report reviewed. 10/04 17:42 Order name: Urine Dipstick-Ancillary (obtain specimen); Complete Time: 19:39 cp 10/04 17:42 Order name: Urine Test (obtain specimen); Complete Time: 19:39 cp Administered Medications: 18:18 Drug: predniSONE 60 mg Route: PO; aj 18:19 Drug: Albuterol - atroVENT (3:1) (2.5 mg - 0.5 mg) 3 ml Route: Nebulizer; aj1 Disposition: 10/04/18 19:46 Discharged to Home. Impression: Unspecified asthma with (acute) exacerbation. - Condition is Stable. - Discharge Instructions: Asthma, Adult, How to Use an Inhaler. - Prescriptions for Prednisone 20 mg Oral Tablet - take 3 tablet by ORAL route once daily for 5 days; 15 tablet. Albuterol Sulfate 2.5 mg /3 mL (0.083 %) Inhalation Solution for Nebulization - inhale 1 unit by NEBULIZATION route every 8 hours As needed; 1 box. Albuterol Sulfate 90 mcg/actuation - inhale 1-2 puff by INHALATION route every 4-6 hours; 1 Inhaler. - Work release form, Medication Reconciliation Form, Thank You Letter, Antibiotic Education, Prescription Opioid Use form. - Follow up: Private Physician; When: 2 - 3 days; Reason: Recheck today's complaints. - Problem is an acute exacerbation. - Symptoms have improved. Addendum: 10/06/2018 07:02 Co-signature as Attending Physician, Junito Sutton MD. r n Signatures: Dispatcher [employer] EDDevika Jean Baptiste RN RN aj1 Georgia Patel RN RN Jill Lynn RN RN aj Junito Sutton MD MD rn Page, Corey, PA PA cp Corrections: (The following items were deleted from the chart) 10/04 20:10 19:46 10/04/2018 19:46 Discharged to Home. Impression: Unspecified asthma with (acute) aj exacerbation. Condition is Stable. Forms are Medication Reconciliation Form, Thank You Letter, Antibiotic Education, Prescription Opioid Use. Follow up: Private Physician; When: 2 - 3 days; Reason: Recheck today's complaints. Problem is an acute exacerbation. Symptoms have improved. cp
--- NOTE | 2018-10-04 19:47 | ER ---
Nurse's Notes [facility] Name: Rachael Knox Age: 33 yrs Sex: Female : 1985 Arrival Date: 10/04/2018 Time: 13:39 Bed 19 Private MD: None, None Diagnosis: Unspecified asthma with (acute) exacerbation Presentation: 10/04 14:02 Presenting complaint: Patient states: SOB, productive cough, green in color started a sv few weeks ago and never improved from her last ER visit. Transition of care: patient was not received from another setting of care. Onset of symptoms was September 2018. Care prior to arrival: None. 14:02 Method Of Arrival: Ambulatory sv 14:02 Acuity: DARSHAN 3 sv 18:45 Risk Assessment: Do you want to hurt yourself or someone else? Patient reports no aj1 desire to harm self or others. Initial Sepsis Screen: Does the patient meet any 2 criteria? No. Patient's initial sepsis screen is negative. Does the patient have a suspected source of infection? No. Patient's initial sepsis screen is negative. Triage Assessment: 17:45 General: Appears in no apparent distress. comfortable, Behavior is calm, cooperative, aj1 appropriate for age. Pain: Denies pain. Respiratory: Reports shortness of breath Onset: The symptoms/episode began/occurred gradually, the patient has mild shortness of breath. Historical: - Allergies: 14:03 Bactrim; sv 14:03 mycins; sv 14:03 PENICILLINS; sv 14:03 Sulfa (Sulfonamide Antibiotics); sv - Immunization history:: Adult Immunizations up to date. - Ebola Screening: : Patient denies travel to an Ebola-affected area in the 21 days before illness onset. Screenin:45 Fall Risk None identified. aj1 18:45 Abuse screen: Denies threats or abuse. Denies injuries from another. Nutritional aj1 screening: No deficits noted. On. Tuberculosis screening: No symptoms or risk factors identified. Assessment: 17:45 General: Appears in no apparent distress. comfortable, Behavior is calm, cooperative, aj1 appropriate for age. Pain: Denies pain. Neuro: Level of Consciousness is awake, alert, obeys commands, Oriented to person, place, time, situation. Cardiovascular: Patient's skin is warm and dry. Rhythm is regular. Respiratory: Reports shortness of breath Airway is patent Respiratory effort is even, unlabored, Respiratory pattern is regular, symmetrical, Breath sounds with wheezes bilaterally. GI: No signs and/or symptoms were reported involving the gastrointestinal system. : No signs and/or symptoms were reported regarding the genitourinary system. EENT: No signs and/or symptoms were reported regarding the EENT system. Derm: No signs and/or symptoms reported regarding the dermatologic system. Musculoskeletal: No signs and/or symptoms reported regarding the musculoskeletal system. Circulation, motion, and sensation intact. Vital Signs: 14:03 BP 139 / 87; Pulse 78; Resp 22; Temp 98.3; Pulse Ox 95% ; Weight 151.95 kg; Height 5 sv ft. 5 in. (165.10 cm); Pain 5/10; 17:30 BP 144 / 86; Pulse 86; Resp 18; Temp 98.2(TE); Pulse Ox 95% on R/A; aj1 18:37 BP 135 / 87; Pulse 88; Resp 22; Pulse Ox 100% on Nebulizer Mask; aj1 14:03 Body Mass Index 55.75 (151.95 kg, 165.10 cm) sv ED Course: 13:39 Patient arrived in ED. mr 13:39 None, None is Private Physician. mr 14:03 Triage completed. sv 14:04 Arm band placed on. sv 15:57 Chest Pa And Lat (2 Views) XRAY In Process Unspecified. EDMS 17:36 aKng Clemente PA is PHCP. cp 17:36 Junito Sutton MD is Attending Physician. cp 17:40 Devika Paiz, VITA is Primary Nurse. aj1 18:45 Patient has correct armband on for positive identification. Bed in low position. Call aj1 light in reach. 18:45 No provider procedures requiring assistance completed. aj1 19:15 Report given to VITA Mei. aj1 19:15 Patient did not have IV access during this emergency room visit. aj1 Administered Medications: 18:18 Drug: predniSONE 60 mg Route: PO; aj1 18:19 Drug: Albuterol - atroVENT (3:1) (2.5 mg - 0.5 mg) 3 ml Route: Nebulizer; aj1 Outcome: 19:46 Discharge ordered by . cp 20:09 Discharged to home ambulatory. aj 20:09 Condition: good 20:09 Discharge instructions given to patient, Instructed on discharge instructions, follow up and referral plans. medication usage, Demonstrated understanding of instructions, follow-up care, medications, Prescriptions given X 3. 20:10 Patient left the ED. aj Signatures: Dispatcher [employer] EDMS Devika Paiz, VITA GORMAN aj1 Georgia Patel RN Jill Herron RN VITA Rose, Anat parsons Chyna, Kang, PA PA cp Corrections: (The following items were deleted from the chart) 20:45 18:45 General: Appears in no apparent distress. comfortable, Behavior is calm, aj1 cooperative, appropriate for age, aj1 20:45 18:45 Pain: Denies pain. aj1 aj1 20:45 18:45 Neuro: Level of Consciousness is awake, alert, obeys commands, Oriented to aj1 person, place, time, situation, aj1 20:45 18:45 Cardiovascular: Patient's skin is warm and dry. Rhythm is regular aj1 aj1 20:45 18:45 Respiratory: Reports shortness of breath Airway is patent Respiratory effort is aj1 even, unlabored, Respiratory pattern is regular, symmetrical, Breath sounds with wheezes bilaterally. aj1 20:45 18:45 GI: No signs and/or symptoms were reported involving the gastrointestinal system. aj1 aj1 20:45 18:45 : No signs and/or symptoms were reported regarding the genitourinary system. aj1aj1 20:45 18:45 EENT: No signs and/or symptoms were reported regarding the EENT system. aj1 aj1 20:45 18:45 Derm: No signs and/or symptoms reported regarding the dermatologic system. aj1 aj1 20:45 18:45 Musculoskeletal: No signs and/or symptoms reported regarding the musculoskeletal aj1 system. Circulation, motion, and sensation intact. aj1
[2018-10-04 20:36] LABS: Urine Blood TRACE (NEG); Urine Glucose NEGATIVE (NEG); Urine Protein TRACE (NEG); Urine Specific Gravity >1.030 (1.005-1.030); Urine pH 5.5 (5.0-7.0)
== END 2018-10-04 20:10 | disposition home or self-care (01) ==
LOC: ER 13:36
DX: J45.901 Unspecified asthma with (acute) exacerbation (principal); Z88.1 Allergy status to other antibiotic agents; Z88.0 Allergy status to penicillin; Z88.2 Allergy status to sulfonamides
CPT/HCPCS: 71046; 81003; 81025; 94640; 99284; J7512

== ENCOUNTER 2018-12-19 13:55 | Emergency (ER) | payer SELFPAY ==
--- OUTSIDE RECORDS SUMMARY | 2018-12-19 13:57 | XMS REPORT ---
:1985 [facility] Address [address] [place]. [address] [place] [id number] Care Team Providers Name Role Phone Unavailable Unavailable Unavailable Problems This patient has no known problems. Allergies, Adverse Reactions, Alerts This patient has no known allergies or adverse reactions. Medications This patient has no known medications.
[2018-12-19] MEDS ORDERED: ALBUTEROL 2.5 MG/3 ML NEB SOL ONE (14:45)
[2018-12-19] MEDS ORDERED: IPRATROPIUM BROM 0.5MG/2.5ML ONE (14:46)
--- NOTE | 2018-12-19 14:55 | ER ---
Nurse's Notes [facility] Name: Rachael Knox Age: 33 yrs Sex: Female : 1985 Arrival Date: 12/19/2018 Time: 14:00 Bed 7 Private MD: Diagnosis: Unspecified asthma with (acute) exacerbation Presentation: 12/19 14:02 Presenting complaint: Patient states: cough, congestion, asthma since last night. Has sv been using her breathing treatments at home with no relief. Transition of care: patient was not received from another setting of care. Onset of symptoms was December 18, 2018. Risk Assessment: Do you want to hurt yourself or someone else? Patient reports no desire to harm self or others. Care prior to arrival: None. 14:02 Method Of Arrival: Ambulatory sv 14:02 Acuity: DARSHAN 3 sv 14:20 Initial Sepsis Screen: Does the patient meet any 2 criteria? No. Patient's initial aa5 sepsis screen is negative. Does the patient have a suspected source of infection? No. Patient's initial sepsis screen is negative. Historical: - Allergies: 14:04 Bactrim; sv 14:04 mycins; sv 14:04 PENICILLINS; sv 14:04 Sulfa (Sulfonamide Antibiotics); sv - PMHx: 14:04 Bipolar disorder; EDEMA; Hypertension; Hypothyroidism; sv - Immunization history:: Adult Immunizations up to date. - Social history:: Smoking status: Patient/guardian denies using tobacco. - Ebola Screening: : No symptoms or risks identified at this time. Screenin:20 Abuse screen: Denies threats or abuse. Nutritional screening: No deficits noted. aa5 Tuberculosis screening: No symptoms or risk factors identified. Fall Risk None identified. Assessment: 14:20 General: Appears uncomfortable, Behavior is calm, cooperative. Pain: Complains of pain aa5 in throat Quality of pain is described as sore. Neuro: Level of Consciousness is awake, alert, obeys commands, Oriented to person, place, time, situation. Cardiovascular: Heart tones S1 S2 present Rhythm is regular. Respiratory: Reports shortness of breath Airway is patent Respiratory effort is even, unlabored, Respiratory pattern is regular, symmetrical, Breath sounds are diminished in right upper lobe, left upper lobe, right middle lobe, left lower lobe and right lower lobe Breath sounds with wheezes in left posterior upper lobe, right posterior upper lobe, left posterior lower lobe, right posterior middle lobe and right posterior lower lobe. GI: Abdomen is obese. : No signs and/or symptoms were reported regarding the genitourinary system. EENT: Reports sore throat . Derm: Skin is pink, warm \T\ dry. Musculoskeletal: Range of motion: intact in all extremities. 14:38 Reassessment: Patient is alert, oriented x 3, equal unlabored respirations, skin aa5 warm/dry/pink. Patient states symptoms have not improved. Respiratory: Breath sounds with wheezes bilaterally. 15:11 Reassessment: Patient appears in no apparent distress at this time. No changes from aj1 previously documented assessment. Patient and/or family updated on plan of care and expected duration. Pain level reassessed. Patient is alert, oriented x 3, equal unlabored respirations, skin warm/dry/pink. Patient states feeling better. Patient states symptoms have improved. Vital Signs: 14:04 Temp 97(TE); Weight 151.95 kg; Height 5 ft. 5 in. (165.10 cm); Pain 0/10; sv 14:05 BP 134 / 93; Pulse 84; Resp 20 S; Pulse Ox 98% on R/A; aa5 14:30 BP 134 / 93; Pulse 79; Resp 20 S; Pulse Ox 99% on Nebulizer Mask; aa5 14:50 BP 139 / 86; Pulse 79; Resp 22 S; Pulse Ox 97% on R/A; aa5 14:04 Body Mass Index 55.75 (151.95 kg, 165.10 cm) sv ED Course: 14:00 Patient arrived in ED. as 14:00 Kang Clemente PA is PHCP. cp 14:00 Kang Gifford MD is Attending Physician. cp 14:02 Arm band placed on Patient placed in an exam room, on a stretcher. sv 14:03 Triage completed. sv 14:20 Patient has correct armband on for positive identification. aa5 14:24 Elvia Argueta, VITA is Primary Nurse. aa5 14:30 Strep swab sent to lab. aa5 15:11 No provider procedures requiring assistance completed. Patient did not have IV access aj1 during this emergency room visit. Administered Medications: 14:28 Drug: Albuterol 2.5 mg Route: Inhalation; aa5 14:28 Drug: AtroVENT Aerosol 0.5 mg Route: Inhalation; aa5 Outcome: 14:55 Discharge ordered by . cp 15:11 Discharged to home ambulatory. aj1 15:11 Condition: good 15:11 Discharge instructions given to patient, Instructed on discharge instructions, follow up and referral plans. medication usage, Demonstrated understanding of instructions, follow-up care, medications, Prescriptions given X 4. 15:11 Patient left the ED. aj1 Signatures: Devika Paiz RN RN aj1 Georgia Patel RN RN sv Martinez, Amelia as Calderon, Audri, RN RN aa5 Kang Clemente, PA PA cp
--- NOTE | 2018-12-19 14:56 | EDPHYS ---
Physician Documentation [facility] Name: Rachael Knox Age: 33 yrs Sex: Female : 1985 Arrival Date: 12/19/2018 Time: 14:00 Bed 7 Private MD: [place]ER[place] Physician Kang Gifford HPI: 12/19 14:10 This 33 yrs old Female presents to ER via Ambulatory with complaints of cp Congestion, Asthma Exacerbation. 14:10 The patient or guardian reports cough, that is intermittent, difficulty breathing. cp Onset: The symptoms/episode began/occurred yesterday. Associated signs and symptoms: Pertinent positives: sore throat, Pertinent negatives: chest pain, diarrhea, ear ache, fever, vomiting. Severity of symptoms: in the emergency department the symptoms are unchanged despite home interventions. Historical: - Allergies: 14:04 Bactrim; sv 14:04 mycins; sv 14:04 PENICILLINS; sv 14:04 Sulfa (Sulfonamide Antibiotics); sv - PMHx: 14:04 Bipolar disorder; EDEMA; Hypertension; Hypothyroidism; sv - Immunization history:: Adult Immunizations up to date. - Social history:: Smoking status: Patient/guardian denies using tobacco. - Ebola Screening: : No symptoms or risks identified at this time. ROS: 14:20 Constitutional: Negative for body aches, chills, fever, poor PO intake. cp 14:20 Eyes: Negative for injury, pain, redness, and discharge. cp 14:20 ENT: Positive for sinus congestion, sore throat, Negative for drainage from ear(s), ear pain, difficulty swallowing, difficulty handling secretions. 14:20 Respiratory: Positive for cough, Negative for shortness of breath, wheezing. 14:20 Abdomen/GI: Negative for nausea and vomiting, black/tarry stool, rectal pain, bowel incontinence. Exam: 14:30 Constitutional: The patient appears in no acute distress, alert, awake, non-toxic, well cp developed, well nourished, obese. 14:30 Head/Face: Normocephalic, atraumatic. cp 14:30 Eyes: Periorbital structures: appear normal, Conjunctiva: normal, no exudate, no injection, Lids and lashes: appear normal, bilaterally. 14:30 ENT: External ear(s): are unremarkable, Ear canal(s): are normal, clear, TM's: bulging, is not appreciated, bilaterally, dullness, bilaterally, erythema, is not appreciated, bilaterally, Nose: is normal, Mouth: Lips: moist, Oral mucosa: pink and intact, moist, Posterior pharynx: is normal, airway is patent, no erythema, no exudate. 14:30 Neck: ROM/movement: is normal, is supple, without pain, no range of motions limitations, no nuchal rigidity, Lymph nodes: no appreciated lymphadenopathy. 14:30 Chest/axilla: Inspection: normal, Palpation: is normal, no crepitus, no tenderness. 14:30 Cardiovascular: Rate: normal, Rhythm: regular. 14:30 Respiratory: the patient does not display signs of respiratory distress, Respirations: normal, no use of accessory muscles, no retractions, no splinting, no tachypnea, labored breathing, is not present, Breath sounds: bronchial sounds, that are mild, are heard diffusely, stridor, is not appreciated, + upper airway congestion. wheezing: is not appreciated. 14:30 Back: pain, is absent, ROM is normal. 14:30 Skin: no rash present. Vital Signs: 14:04 Temp 97(TE); Weight 151.95 kg; Height 5 ft. 5 in. (165.10 cm); Pain 0/10; sv 14:05 BP 134 / 93; Pulse 84; Resp 20 S; Pulse Ox 98% on R/A; aa5 14:30 BP 134 / 93; Pulse 79; Resp 20 S; Pulse Ox 99% on Nebulizer Mask; aa5 14:50 BP 139 / 86; Pulse 79; Resp 22 S; Pulse Ox 97% on R/A; aa5 14:04 Body Mass Index 55.75 (151.95 kg, 165.10 cm) sv MDM: 14:08 Patient medically screened. 14:54 Data reviewed: vital signs, nurses notes, and as a result, I will discharge patient. 12/19 14:09 Order name: Strep; Complete Time: 14:49 12/19 14:46 Interpretation: Reviewed. 12/19 14:47 Order name: Throat Culture EDMS Administered Medications: 14:28 Drug: Albuterol 2.5 mg Route: Inhalation; aa5 14:28 Drug: AtroVENT Aerosol 0.5 mg Route: Inhalation; aa5 Disposition: 12/20 07:22 Co-signature as Attending Physician, Kang Gifford MD I agree with the assessment and [facility] plan of care. Disposition: 12/19/18 14:55 Discharged to Home. Impression: Unspecified asthma with (acute) exacerbation. - Condition is Stable. - Discharge Instructions: Asthma, Adult. - Prescriptions for Tessalon Perles 100 mg Oral Capsule - take 2 capsule by ORAL route every 8 hours As needed; 30 capsule. Prednisone 20 mg Oral Tablet - take 2 tablet by ORAL route once daily for 5 days; 10 tablet. Albuterol Sulfate 2.5 mg /3 mL (0.083 %) Inhalation Solution for Nebulization - inhale 1 unit by NEBULIZATION route every 8 hours As needed; 1 box. Albuterol Sulfate 90 mcg/actuation - inhale 1-2 puff by INHALATION route every 4-6 hours; 1 Inhaler. - Medication Reconciliation Form, Thank You Letter, Antibiotic Education, Prescription Opioid Use form. - Follow up: Private Physician; When: 2 - 3 days; Reason: Worsening of condition. - Problem is an acute exacerbation. - Symptoms have improved. Signatures: Dispatcher [employer] EDMS Devika Paiz RN RN aj1 Georgia Patel RN RN sv Anderson, Corey, MD MD cha Calderon, Audri RN RN aa5 Kang Clemente PA PA cp Corrections: (The following items were deleted from the chart) 12/19 15:11 14:55 12/19/2018 14:55 Discharged to Home. Impression: Unspecified asthma with (acute) aj1 exacerbation. Condition is Stable. Forms are Medication Reconciliation Form, Thank You Letter, Antibiotic Education, Prescription Opioid Use. Follow up: Private Physician; When: 2 - 3 days; Reason: Worsening of condition. Problem is an acute exacerbation. Symptoms have improved. cp
== END 2018-12-19 15:11 | disposition home or self-care (01) ==
LOC: ER 13:55
DX: J45.901 Unspecified asthma with (acute) exacerbation (principal); I10 Essential (primary) hypertension; Z88.0 Allergy status to penicillin; Z88.1 Allergy status to other antibiotic agents; Z88.2 Allergy status to sulfonamides; Z88.3 Allergy status to other anti-infective agents
CPT/HCPCS: 87070; 87081; 99284

== ENCOUNTER 2019-02-05 10:11 | Observation (INO) | payer SELFPAY ==
--- OUTSIDE RECORDS SUMMARY | 2019-02-05 10:13 | XMS REPORT ---
:1985 [facility] Address [address] [place]. [address] [place] [address] Care Team Providers Name Role Phone Unavailable Unavailable Unavailable Problems This patient has no known problems. Allergies, Adverse Reactions, Alerts This patient has no known allergies or adverse reactions. Medications This patient has no known medications.
[2019-02-05] MEDS ORDERED: NA CHLORIDE 0.9% 1,000 ML ONE (11:12)
[2019-02-05 11:36] LABS: Protime INR 1.03
[2019-02-05 11:42] LABS: Absolute Lymphocytes (CBC) 1.6 K/uL (0.7-4.9); Basophils % 1.5 % (0-1.3); Hematocrit 20.1 % (36.0-45.0); Lymphocytes % 20.3 % (15.3-44.8); MPV 8.8 fL (7.6-11.3); RBC Red Blood Cell Count 2.69 M/uL (3.86-4.86)
[2019-02-05 11:53] LABS: ALT/SGPT 18 U/L (12-78); AST/SGOT 14 U/L (15-37); Albumin 3.7 g/dL (3.4-5.0); Alkaline Phosphatase 43 U/L (45-117); BUN Blood Urea Nitrogen 11 mg/dL (7-18); Bicarbonate 23 mmol/L (21-32); Bilirubin Direct < 0.1 mg/dL (0-0.2); Bilirubin Total 0.2 mg/dL (0.2-1.0); Glucose Level 91 mg/dL (74-106); Magnesium 2.2 mg/dL (1.8-2.4); NT PRO-BNP 6 pg/mL (<125); Potassium 3.7 mmol/L (3.5-5.1); Protein, Total 6.8 g/dL (6.4-8.2); Sodium Level 143 mmol/L (136-145); Troponin (Emerg Dept Use Only) < 0.02 ng/mL (0.0-0.045)
[2019-02-05 12:21] LABS: Urine Appearance TURBID; Urine Blood 3+ (NEG); Urine Color RED; Urine Glucose NEGATIVE (NEG); Urine Protein 2+ (NEG); Urine Specific Gravity 1.025 (1.005-1.030)
[2019-02-05 12:29] LABS: Urine Bilirubin NEGATIVE (NEG)
[2019-02-05 12:30] LABS: Urine Microscopic Reflex ORDER UMIC
[2019-02-05 12:45] LABS: Urine RBC >50 /HPF (NONE SEEN)
[2019-02-05 12:46] LABS: Urine Bacteria 20-50 /HPF (<20); Urine Culture Reflex Order REFLEXED
--- NOTE | 2019-02-05 13:50 | RAD REPORT ---
EXAM DESCRIPTION: Rosario Single View02/05/2019 11:52 am CLINICAL HISTORY: Hypertension weakness COMPARISON: September 2018 FINDINGS: The lungs appear clear of acute infiltrate. The heart is normal size IMPRESSION: No acute abnormalities displayed
--- NOTE | 2019-02-05 14:10 | RAD REPORT ---
EXAM DESCRIPTION: US - Pelvis Complete - 02/05/2019 1:50 pm CLINICAL HISTORY: Vaginal bleeding COMPARISON: None FINDINGS: The uterus measures 11 x 6 x 6 centimeters. The endometrial stripe [id number]. A fibroid is not seen although the evaluation is limited as the bladder is not well distended 2 centimeter left ovarian cyst 4.2 centimeter right ovarian cyst.. Blood flow is seen within each ovary Right and left adnexa unremarkable No significant free fluid is seen. IMPRESSION: 4.2 centimeter right ovarian cyst without significant free fluid
[2019-02-05] MEDS ORDERED: NA CHLORIDE 0.9% 500 ML ONE ×2 (14:15→17:52)
[2019-02-05] MEDS ORDERED: DIPHENHYDRAMINE 50 MG/ML VIAL ONE (15:07)
--- NOTE | 2019-02-05 15:08 | EDPHYS ---
Physician Documentation [facility] Name: Rachael Knox Age: 33 yrs Sex: Female : 1985 Arrival Date: 02/05/2019 Time: 10:14 Bed 14 Private MD: ED Physician Rajan Samuel HPI: 02/05 10:59 This 33 yrs old Female presents to ER via Ambulatory with complaints of jmm Dizziness, Shortness Of Breath. 10:59 The patient presents with vaginal bleeding that is. Onset: The symptoms/episode jmm began/occurred gradually, 2 day(s) ago. Modifying factors: The symptoms are alleviated by nothing. Associated signs and symptoms: Pertinent positives: vaginal bleeding. This is a 33 year old female with a history of bipolar, htn, EDEMA, hypothyroidism, anemia that presents to the ED with complaints of heavy vaginal bleeding, passing blood clots, 2 days ago with increased weakness, lightheaded beginning this morning. . 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 - Social history:: Smoking status: Patient/guardian denies using tobacco. - Ebola Screening: : Patient negative for fever greater than or equal to 101.5 degrees Fahrenheit, and additional compatible Ebola Virus Disease symptoms Patient denies exposure to infectious person Patient denies travel to an Ebola-affected area in the 21 days before illness onset No symptoms or risks identified at this time. ROS: 10:59 Constitutional: Negative for fever, chills, and weight loss, Cardiovascular: Negative jmm for chest pain, palpitations, and edema, Respiratory: Negative for shortness of breath, cough, wheezing, and pleuritic chest pain. 10:59 Abdomen/GI: Negative for abdominal pain, nausea, vomiting, diarrhea, and constipation, Back: Negative for injury and pain. 10:59 : Positive for vaginal bleeding. 10:59 Neuro: Positive for weakness. 10:59 All other systems are negative. Exam: 10:59 Constitutional: This is a well developed, well nourished patient who is awake, alert, jmm and in no acute distress. Head/Face: atraumatic. Eyes: EOMI, no conjunctival erythema appreciated ENT: Moist Mucus Membranes Neck: Trachea midline, Supple Chest/axilla: Normal chest wall appearance and motion. Cardiovascular: Regular rate and rhythm. No edema appreciated Respiratory: Normal respirations, no respiratory distress appreciated Abdomen/GI: Non distended, soft Back: Normal ROM Skin: General appearance color normal MS/ Extremity: Moves all extremities, no obvious deformities appreciated, no edema noted to the lower extremities Neuro: Awake and alert, normal gait Psych: Behavior is normal, Mood is normal, Patient is cooperative and pleasant Vital Signs: 10:27 BP 121 / 77; Pulse 117; Resp 18; Temp 97.2; Pulse Ox 98% on R/A; Weight 152.41 kg; sg Height 5 ft. 5 in. (165.10 cm); Pain 7/10; 11:22 BP 130 / 92; Pulse 79; Resp 12; Pulse Ox 100% on R/A; rv 14:30 BP 115 / 66 Supine; Pulse 87; Resp 13; Pulse Ox 100% on R/A; rv 14:34 BP 128 / 72 Sitting; Pulse 87; Resp 14; Pulse Ox 100% on R/A; rv 14:39 BP 105 / 59 Standing; Pulse 84; Resp 15; Pulse Ox 100% ; rv 15:00 BP 109 / 75; Pulse 88; Resp 20; Pulse Ox 100% ; rv 15:30 BP 114 / 70; Pulse 85; Resp 15; Pulse Ox 100% on R/A; rv 16:30 BP 105 / 70; Pulse 82; Resp 15; Pulse Ox 100% on R/A; rv 17:46 BP 109 / 70; Pulse 85; Resp 15; Temp 98(O); Pulse Ox 100% ; rv 10:27 Body Mass Index 55.91 (152.41 kg, 165.10 cm) MDM: 10:59 Patient medically screened. [facility] 15:01 Data reviewed: vital signs, nurses notes, lab test result(s), radiologic studies, [facility] ultrasound. Counseling: I had a detailed discussion with the patient and/or guardian regarding: the historical points, exam findings, and any diagnostic results supporting the discharge/admit diagnosis, radiology results, the need for further work-up and treatment in the hospital. ED course: I discussed the patient with Dr. Napoles whom accepted admission. Advised to administer Premarin if negative. Administer LR and repeat H/H 3 to 4 hours after blood given. . 02/05 11:08 Order name: Basic Metabolic Panel; Complete Time: 12:41 [facility] 02/05 11:08 Order name: CBC with Diff; Complete Time: 12:02 [facility] 02/05 11:08 Order name: LFT's; Complete Time: 12:41 [facility] 02/05 11:08 Order name: Magnesium; Complete Time: 12:41 [facility] 02/05 11:08 Order name: NT PRO-BNP; Complete Time: 12:41 [facility] 02/05 11:08 Order name: PT-INR; Complete Time: 11:45 [facility] 02/05 11:08 Order name: Troponin (emerg Dept Use Only); Complete Time: 12:41 [facility] 02/05 11:08 Order name: Type And Screen [facility] 02/05 11:08 Order name: TSH; Complete Time: 12:41 [facility] 02/05 12:04 Order name: T4 Free; Complete Time: 12:41 [facility] 02/05 12:16 Order name: Urinalysis; Complete Time: 12:46 [facility] 02/05 12:31 Order name: Urine Microscopic Only; Complete Time: 12:46 [facility] 02/05 12:47 Order name: Urine Culture [facility] 02/05 12:48 Order name: Urine Culture [facility] 02/05 11:08 Order name: XRAY Chest (1 view); Complete Time: 13:55 [facility] 02/05 11:08 Order name: EKG; Complete Time: 11:09 [facility] 02/05 12:03 Order name: US Pelvis Complete; Complete Time: 14:21 [facility] 02/05 13:18 Order name: ABO/RH no charge; Complete Time: 13:20 [facility] 02/05 13:31 Order name: Bb Add On eb 02/05 13:36 Order name: Packed RBCs (Additional Unit) [facility] 02/05 14:01 Order name: Test, Serum; Complete Time: 15:00 [facility] 02/05 15:46 Order name: Clear Liquid [facility] 02/05 15:46 Order name: Hematocrit [facility] 02/05 15:46 Order name: Hemoglobin [facility] 02/05 11:08 Order name: Cardiac monitoring; Complete Time: 11: [facility] 02/05 11:08 Order name: EKG - Nurse/Tech; Complete Time: 11: [facility] 02/05 11:08 Order name: IV Saline Lock; Complete Time: 11: [facility] 02/05 11:08 Order name: Labs collected and sent; Complete Time: 11: [facility] 02/05 11:08 Order name: O2 Per Protocol; Complete Time: 11: [facility] 02/05 11:08 Order name: O2 Sat Monitoring; Complete Time: 11: [facility] 02/05 11:08 Order name: Urine Dipstick-Ancillary (obtain specimen); Complete Time: 12:25 [facility] 02/05 14:01 Order name: Urine Test (obtain specimen); Complete Time: 15:22 [facility] 02/05 14:18 Order name: Orthostatics; Complete Time: 15:21 [facility] Administered Medications: 11:20 Drug: NS 0.9% 1000 ml Route: IV; Rate: 1 bolus; Site: right antecubital; rv 12:28 Follow up: IV Status: Completed infusion; IV Intake: 1000ml rv 15:00 Drug: diphenhydrAMINE 25 mg Route: IVP; Site: right antecubital; rv 15:51 Follow up: Response: No adverse reaction rv 15:45 Drug: Premarin 25 mg Route: IV; Rate: calculated rate; Site: left antecubital; rv 15:52 Follow up: IV Status: Completed infusion rv Disposition: 02/05/19 15:07 Hospitalization ordered by Cosme Napoles for Observation. Preliminary diagnosis are Urinary tract infection, site not specified, Anemia, Excessive and frequent menstruation with regular cycle. - Bed [facility]. - Status is Observation. rv - Condition is Stable. - Problem is new. - Symptoms are unchanged. UTI on Admission? Yes Addendum: 02/07/2019 09:38 Co-signature as Attending Physician, Rajan Samuel MD I agree with the assessment and k dr plan of care. Signatures: Dispatcher [facility] Meeta Posada RN RN dw Gay, Steven, RN RN sg Rittger, Kevin, MD MD kdr Mickail, Vernon, PA PA [facility] Sanjuanita Andre Luis Ferro RN RN rv Corrections: (The following items were deleted from the chart) 02/05 13:47 13:22 PACKED RBC LEUKORED -1+BB.LAB.BRZ ordered. EDDE EDDE 13:47 13:23 ABO/RH typing ordered. EDDE EDDE 13:47 13:23 Antibody Screen ordered. EDDE EDDE 16:38 15:07 Hospitalization Ordered by Cosme Napoles MD for Observation. Preliminary eb diagnosis is Urinary tract infection, site not specified; Anemia; Excessive and frequent menstruation with regular cycle. Bed requested for [facility]. Status is Observation. Condition is Stable. Problem is new. Symptoms are unchanged. UTI on Admission? Yes. [facility] 16:55 16:38 02/05/2019 15:07 Hospitalization Ordered by Cosme Napoles MD for Observation. dw Preliminary diagnosis is Urinary tract infection, site not specified; Anemia; Excessive and frequent menstruation with regular cycle. Bed requested for [facility]. Status is Observation. Condition is Stable. Problem is new. Symptoms are unchanged. UTI on Admission? Yes. eb 17:47 16:55 02/05/2019 15:07 Hospitalization Ordered by Cosme Napoles MD for Observation. rv Preliminary diagnosis is Urinary tract infection, site not specified; Anemia; Excessive and frequent menstruation with regular cycle. Bed requested for [facility]. Status is Observation. Condition is Stable. Problem is new. Symptoms are unchanged. UTI on Admission? Yes. dw
--- NOTE | 2019-02-05 15:08 | ER ---
[facility] Name: Rachael Knox Age: 33 yrs Sex: Female : 1985 Arrival Date: 02/05/2019 Time: 10:14 Bed 14 Private MD: Diagnosis: Urinary tract infection, site not specified;Anemia;Excessive and frequent menstruation with regular cycle Presentation: 02/05 10:21 Acuity: DARSHAN 2 sg 10:21 Presenting complaint: Patient states: Weakness with dizziness that started several days sg ago but has worsened today, pt reports extreme fatigue which is abnormal for her, has a history of anemia with last recorded Hgb of 7 but denies tranfusion, states that is now on her cycle and is experience heavy heavy flow with large amount of bright red clots. Transition of care: patient was not received from another setting of care. Onset of symptoms was February 05, 2019. Risk Assessment: Do you want to hurt yourself or someone else? Patient reports no desire to harm self or others. Initial Sepsis Screen: Does the patient meet any 2 criteria? RR > 20 per min. HR > 90 bpm. Yes Does the patient have a suspected source of infection? No. Patient's initial sepsis screen is negative. Care prior to arrival: None. 10:21 Method Of Arrival: Ambulatory sg Triage Assessment: 11:21 General: Appears in no apparent distress. uncomfortable, Behavior is calm, cooperative. rv Respiratory: Reports shortness of breath at rest Onset: The symptoms/episode began/occurred gradually, the patient has moderate shortness of breath. 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 - Social history:: Smoking status: Patient/guardian denies using tobacco. - Ebola Screening: : Patient negative for fever greater than or equal to 101.5 degrees Fahrenheit, and additional compatible Ebola Virus Disease symptoms Patient denies exposure to infectious person Patient denies travel to an Ebola-affected area in the 21 days before illness onset No symptoms or risks identified at this time. Screenin:21 Abuse screen: Denies threats or abuse. Denies injuries from another. Nutritional rv screening: No deficits noted. Tuberculosis screening: No symptoms or risk factors identified. Fall Risk None identified. Assessment: 10:50 General: Appears in no apparent distress. uncomfortable, Behavior is calm, cooperative. rv Pain: Denies pain. Neuro: Level of Consciousness is awake, alert, obeys commands, Oriented to person, place, time, situation. Cardiovascular: Patient's skin is warm and dry. Cardiovascular:. Respiratory: Airway is patent Respiratory effort is unlabored, Respiratory pattern is regular, Breath sounds are clear bilaterally. GI: Abdomen is round. GI:. : No signs and/or symptoms were reported regarding the genitourinary system. EENT: No signs and/or symptoms were reported regarding the EENT system. Derm: Skin is pale white. Musculoskeletal: No signs and/or symptoms reported regarding the musculoskeletal system. 11:21 Cardiovascular: Rhythm is sinus rhythm. rv 12:59 Reassessment: No changes from previously documented assessment. PATIENT REFUSED PELVIC rv EXAM. 14:45 Reassessment: blood transfusion started at 1445. patient signed the consent. rv Vital Signs: 10:27 BP 121 / 77; Pulse 117; Resp 18; Temp 97.2; Pulse Ox 98% on R/A; Weight 152.41 kg; sg Height 5 ft. 5 in. (165.10 cm); Pain 7/10; 11:22 BP 130 / 92; Pulse 79; Resp 12; Pulse Ox 100% on R/A; rv 14:30 BP 115 / 66 Supine; Pulse 87; Resp 13; Pulse Ox 100% on R/A; rv 14:34 BP 128 / 72 Sitting; Pulse 87; Resp 14; Pulse Ox 100% on R/A; rv 14:39 BP 105 / 59 Standing; Pulse 84; Resp 15; Pulse Ox 100% ; rv 15:00 BP 109 / 75; Pulse 88; Resp 20; Pulse Ox 100% ; rv 15:30 BP 114 / 70; Pulse 85; Resp 15; Pulse Ox 100% on R/A; rv 16:30 BP 105 / 70; Pulse 82; Resp 15; Pulse Ox 100% on R/A; rv 17:46 BP 109 / 70; Pulse 85; Resp 15; Temp 98(O); Pulse Ox 100% ; rv 10:27 Body Mass Index 55.91 (152.41 kg, 165.10 cm) ED Course: 10:14 Patient arrived in ED. rg4 10:19 Arm band placed on. sg 10:21 Triage completed. sg 10:47 Luis Ferro, RN is Primary Nurse. rv 10:54 Vernon Childs PA is PHCP. jmm 10:54 Rajan Samuel MD is Attending Physician. jmm 11:09 Inserted saline lock: 18 gauge in right antecubital area, using aseptic technique. rv Blood collected. 11:15 Initial lab(s) drawn, by me, sent to lab. rv 11:21 No provider procedures requiring assistance completed. rv 11:22 Patient has correct armband on for positive identification. Placed in gown. Bed in low rv position. Call light in reach. Side rails up X 1. classroom monitor on. Pulse ox on. NIBP on. 11:53 XRAY Chest (1 view) In Process Unspecified. EDMS 13:51 US Pelvis Complete In Process Unspecified. EDMS 13:53 Ultrasound completed. Patient tolerated well. Notified WORSHIP DIRECTOR/TOMMY ABREU. sg3 15:05 Cosme Napoles MD is Hospitalizing Provider. jmm 17:47 Patient admitted, IV remains in place. rv Administered Medications: 11:20 Drug: NS 0.9% 1000 ml Route: IV; Rate: 1 bolus; Site: right antecubital; rv 12:28 Follow up: IV Status: Completed infusion; IV Intake: 1000ml rv 15:00 Drug: diphenhydrAMINE 25 mg Route: IVP; Site: right antecubital; rv 15:51 Follow up: Response: No adverse reaction rv 15:45 Drug: Premarin 25 mg Route: IV; Rate: calculated rate; Site: left antecubital; rv 15:52 Follow up: IV Status: Completed infusion rv Intake: 12:28 IV: 1000ml; Total: 1000ml. rv Outcome: 15:07 Decision to Hospitalize by Provider. jmm 17:47 Admitted to L \T\ D, accompanied by andrey, via wheelchair, room 279, with chart, Report rv called to ANGELIC GORMAN 17:47 Condition: good 17:47 Instructed on the need for admit. 17:47 Patient left the ED. rv Signatures: Dispatcher [employer] Bubba Richardson, VITA RN Vernon Childs PA PA jmm Garcia, Rubi rg4 Julia Lovell sg3 Luis Ferro RN RN rv Corrections: (The following items were deleted from the chart) 10:37 10:21 Acuity: DARSHAN 3 sg sg 11:23 10:50 Respiratory: Airway is patent Respiratory effort is unlabored, Respiratory rv pattern is tachypnea rv
[2019-02-05] MEDS ORDERED: NA CHLORIDE 0.9% 100 ML IV ONE (15:26)
[2019-02-05] MEDS ORDERED: ESTROGENS,CONJ 25 MG IV ONE (15:26)
[2019-02-05] MEDS ORDERED: ACETAMINOPHEN 500 MG TAB PO PRN (15:37)
[2019-02-05] MEDS ORDERED: ONDANSETRON 4 MG/2 ML VIAL IV PRN (15:37)
[2019-02-05] MEDS ORDERED: Ringers Lactate 1,000 ML IV SCH (16:00)
[2019-02-05 17:54] VITALS: BMI 55.9
[2019-02-05] MEDS ORDERED: ACETAMINOPHEN 325 MG TABLET PO PRN (18:52)
[2019-02-05 20:59] VITALS: O2SAT 98
[2019-02-05 23:41] LABS: Hematocrit 21.6 % (36.0-45.0)
[2019-02-06] MEDS ORDERED: NA CHLORIDE 0.9% 500 ML ONE (02:16)
[2019-02-06 07:36] VITALS: BP 98/53; TEMP 97.4
--- NOTE | 2019-02-07 09:55 | PREOPHP ---
Date of Admission: 02/05/2019 History Of Present Illness: This is a 33-year-old female with oligoovulation. Patient gives a histo ry that she has irregular periods, sometimes goes 2 month or longer without a menstrual period. She has thyroid problems and is on Synthroid 150 mcg a day. Main problem of course is obesity, which is causing the menstrual irregularity. Ultrasound yesterday demonstrated a 4 cm cyst but she is complet elsa asymptomatic about this but knows that she needs to follow up in the future either pelvic exam or ultrasound. She needs to qualify for Medicaid and we will help her get that done. She is stable at this point, came in with a 6.5 hemoglobin. Tachycardia. She has been given 2 units, after 2 units of blood her hemoglobin was only 6.8. She was given 3rd of unit of blood and we are now getting a fi ngerstick hematocrit. She looks quite stable, minimal bleeding. She was given 20 mg of Premarin IV in the emergency room. Knows that this is only a temporary fix and that she needs continuing menstru al control. We discussed the various forms, she decided she wants control pills, bring her kadeem e from my office since this hospital does not offer control pills. Patient reports she is hung ry. Her vital signs are all stable. Her pulse is in the 60 to 70 range so she looks like she is ove r the worst part of the bleeding problem. Full discussion about oligoovulation with the patient and her 13-year-old daughter. She seems to be aware now of what is going on. Family History: Noncontributory. Allergies: NO ALLERGIES. Physical Examination: General: Basically normal. She has no obvious problems with the heart and lungs. Exam was done in [facility] emergency room. Breasts: Are not examined. Abdomen: Massively obese. Pelvic: She has declined and I see no reason to do a pelvic exam since the ultrasound demonstrated a normal size uterus. No intraperitoneal bleeding and the simple 4 cm cyst, which will be followed up . Diagnosis at this point is oligoovulation with severe breakthrough bleeding, now controlled. IV Price brenda has been given, p.o. control pills will be started and she will follow up either in my of isabel or with her family doctor sometime later. If the hematocrit at this point is greater than 8. W e will feed the patient since she is very hungry and then ambulate her in the halls, and then let her go home. BRUNILDA/KARTHIK Voice ID: [id number]
== END 2019-02-06 09:20 | disposition home or self-care (01) ==
LOC: ER 10:11 → ERHOLD 16:40 → 2ND-WC 17:15
PROVIDERS: ADMIT Specialist; ATTEND Specialist
DX: N97.0 Female infertility associated with anovulation (principal); E66.01 Morbid (severe) obesity due to excess calories; Z68.43 Body mass index [BMI] 50.0-59.9, adult; R06.02 Shortness of breath; F31.9 Bipolar disorder, unspecified; I10 Essential (primary) hypertension; E03.9 Hypothyroidism, unspecified
CPT/HCPCS: 36415; 36430; 71045; 76856; 80048; 80076; 81003; 81015; 83735; 83880; 84439; 84443; 84484; 84703; 85014; 85018; 85025; 85610; 86850; 86900; 86901; 87077; 87086; 87088; 87186; 96361; 96374; 96375; 99285; G0378; J1410; J7030; P9016

== ENCOUNTER 2019-04-12 08:48 | Emergency (ER) | payer SELFPAY ==
--- OUTSIDE RECORDS SUMMARY | 2019-04-12 08:50 | XMS REPORT ---
:1985 [facility] [address] [place] [address] Dr. Marshall [address] [place] [address] Care Team Providers Name Role Phone Unavailable Unavailable Unavailable Problems This patient has no known problems. Allergies, Adverse Reactions, Alerts This patient has no known allergies or adverse reactions. Medications This patient has no known medications.
--- NOTE | 2019-04-12 09:25 | RAD REPORT ---
EXAM DESCRIPTION: RAD - Chest Single View - 04/12/2019 9:16 am CLINICAL HISTORY: SOB Chest pain. COMPARISON: Chest Single View dated 02/05/2019; Chest Pa And Lat (2 Views) dated 10/04/2018; Chest Pa And Lat (2 Views) dated 09/14/2018; Chest Single View dated 08/20/2018 FINDINGS: Portable technique limits examination quality. The lungs are grossly clear. The heart is mildly enlarged in size. No displaced fractures. IMPRESSION: No acute intrathoracic process suspected.
--- NOTE | 2019-04-12 09:30 | RAD REPORT ---
EXAM DESCRIPTION: CT - Head Brain Wo Cont - 04/12/2019 9:17 am CLINICAL HISTORY: DIZZINESS Headache, drowsiness COMPARISON: No comparisons TECHNIQUE: All CT scans are performed using dose optimization technique as appropriate and may inclu de automated exposure control or mA/KV adjustment according to patient size. FINDINGS: No intracranial hemorrhage, hydrocephalus or extra-axial fluid collection.No areas of brai n edema or evidence of midline shift. The paranasal sinuses and mastoids are clear. The calvarium is intact. IMPRESSION: No acute intracranial abnormality.
--- NOTE | 2019-04-12 09:41 | EKG ---
Test Date: 2019-04-12 Test Time: 09:23:26 Coating Machine Feeder: ADAM MEASUREMENT RESULTS: Intervals: Rate: 76 CO: 146 QRSD: 98 QT: 462 QTc: 519 [place]: P: 46 CO: 146 QRS: 24 T: 33 INTERPRETIVE STATEMENTS: Normal sinus rhythm Low voltage QRS Cannot rule out Anterior infarct, age undetermined Prolonged QT Abnormal ECG Compared to ECG 08/20/2018 21:47:28 Myocardial infarct finding now present Prolonged QT interval now present T-wave abnormality no longer present Electronically Signed On 04-12-19 09:41:29 CNA PCT by Dagoberto Ramos
[2019-04-12 09:59] LABS: Absolute Lymphocytes (CBC) 1.5 K/uL (0.7-4.9); Basophils % 1.1 % (0-1.3); Lymphocytes % 13.4 % (15.3-44.8); MPV 8.8 fL (7.6-11.3); RBC Red Blood Cell Count 3.85 M/uL (3.86-4.86)
[2019-04-12 10:03] LABS: Protime INR 0.91
[2019-04-12 10:18] LABS: Urine Blood NEGATIVE (NEG); Urine Glucose NEGATIVE (NEG); Urine Protein NEGATIVE (NEG); Urine Specific Gravity 1.025 (1.005-1.030); Urine pH 5.5 (5.0-7.0)
[2019-04-12 10:20] LABS: ALT/SGPT 21 U/L (12-78); AST/SGOT 17 U/L (15-37); Albumin 3.7 g/dL (3.4-5.0); Alkaline Phosphatase 53 U/L (45-117); BUN Blood Urea Nitrogen 12 mg/dL (7-18); Bicarbonate 28 mmol/L (21-32); Bilirubin Direct < 0.1 mg/dL (0-0.2); Bilirubin Total 0.2 mg/dL (0.2-1.0); Glucose Level 85 mg/dL (74-106); Magnesium 2.4 mg/dL (1.8-2.4); NT PRO-BNP 7 pg/mL (<125); Potassium 4.1 mmol/L (3.5-5.1); Protein, Total 7.2 g/dL (6.4-8.2); Sodium Level 139 mmol/L (136-145); Troponin (Emerg Dept Use Only) < 0.02 ng/mL (0.0-0.045)
[2019-04-12] MEDS ORDERED: MECLIZINE HCL 12.5 MG TAB ONE (10:38)
--- NOTE | 2019-04-12 11:25 | ER ---
Nurse's Notes [facility] Name: Rachael Knox Age: 34 yrs Sex: Female : 1985 Arrival Date: 04/12/2019 Time: 08:47 Bed 6 Private MD: Diagnosis: Benign paroxysmal vertigo Presentation: 04/12 08:47 Presenting complaint: EMS states: Menstrual period stopped 2 days ago and pt has been jl7 nauseous and dizzy since then, reports last time this happened back in January she needed a blood transfusion, denies any pain. Transition of care: patient was not received from another setting of care. Onset of symptoms was April 10, 2019. Risk Assessment: Do you want to hurt yourself or someone else? Patient reports no desire to harm self or others. Initial Sepsis Screen: Does the patient meet any 2 criteria? No. Patient's initial sepsis screen is negative. Does the patient have a suspected source of infection? No. Patient's initial sepsis screen is negative. Care prior to arrival: Glucose check: 84 BP 167/83, pulse 78, temp 98.1. 08:47 Method Of Arrival: EMS: [facility] 08:47 Acuity: DARSHAN 3 jl7 Triage Assessment: 08:51 General: Appears in no apparent distress. uncomfortable, Behavior is calm, cooperative. jl7 Pain: Denies pain. EENT: No signs and/or symptoms were reported regarding the EENT system. Neuro: Level of Consciousness is awake, alert, obeys commands, Oriented to person, place, time, situation. Cardiovascular: Patient's skin is warm and dry. Respiratory: Reports shortness of breath at rest Airway is patent Respiratory effort is even, unlabored, Respiratory pattern is regular, symmetrical, Breath sounds are clear bilaterally. the patient has mild shortness of breath. GI: Abdomen is obese, Reports nausea. : No signs and/or symptoms were reported regarding the genitourinary system. Derm: Skin is pink, warm \T\ dry. Musculoskeletal: No signs and/or symptoms reported regarding the musculoskeletal system. 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 - Social history:: Smoking status: Patient/guardian denies using tobacco. - Ebola Screening: : No symptoms or risks identified at this time. Screenin:30 Abuse screen: Denies threats or abuse. Denies injuries from another. Nutritional jl7 screening: No deficits noted. Tuberculosis screening: No symptoms or risk factors identified. Fall Risk IV access (20 points). Total Brink Fall Scale indicates No Risk (0-24 pts). Assessment: 08:56 General: See triage assessment. jl7 09:06 Reassessment: Patient appears in no apparent distress at this time. xray at bedside at this time. 10:00 Reassessment: Patient appears in no apparent distress at this time. No changes from jl7 previously documented assessment. Patient and/or family updated on plan of care and expected duration. Pain level reassessed. Patient is alert, oriented x 3, equal unlabored respirations, skin warm/dry/pink. 11:00 Reassessment: Patient appears in no apparent distress at this time. Patient and/or jl7 family updated on plan of care and expected duration. Pain level reassessed. Patient is alert, oriented x 3, equal unlabored respirations, skin warm/dry/pink. Patient denies pain at this time. Patient states feeling better. Patient states symptoms have improved. Vital Signs: 08:51 BP 143 / 99; Pulse 80; Resp 16 S; Temp 97.1(TE); Pulse Ox 96% on R/A; Weight 150.5 kg jl7 (R); Pain 0/10; 10:00 BP 120 / 81; Pulse 75; Resp 16 S; Pulse Ox 100% on R/A; jl7 11:00 BP 125 / 89; Pulse 73; Resp 16 S; Pulse Ox 96% on R/A; jl7 ED Course: 08:47 Patient arrived in ED. jl7 08:50 Triage completed. jl7 08:51 Andrés Gilmore NP is PHCP. pm1 08:51 Arm band placed on right wrist. jl7 08:52 Isaías Alegre MD is Attending Physician. pm1 09:00 Patient has correct armband on for positive identification. Placed in gown. Bed in low jl7 position. Call light in reach. Side rails up X 1. Pulse ox on. NIBP on. 09:04 Cristhian Kelley, RN is Primary Nurse. jl7 09:15 XRAY Chest (1 view) In Process Unspecified. EDMS 09:18 CT Head Brain wo Cont In Process Unspecified. EDMS 09:27 EKG done, by public health sanitarian technician. reviewed by Andrés Gilmore NP. at1 09:48 Initial lab(s) drawn, by oh, sent to lab. Inserted saline lock: 20 gauge in right jl7 antecubital area, using aseptic technique. Blood collected. 11:38 No provider procedures requiring assistance completed. IV discontinued, intact, jl7 bleeding controlled, No redness/swelling at site. Pressure dressing applied. Administered Medications: 10:39 Drug: Meclizine 50 mg Route: PO; jl7 11:00 Follow up: Response: No adverse reaction; Marked relief of symptoms jl7 Outcome: 11:23 Discharge ordered by MD. pm1 11:38 Discharged to home ambulatory. jl7 11:38 Condition: stable 11:38 Discharge instructions given to patient, Instructed on discharge instructions, follow up and referral plans. medication usage, Demonstrated understanding of instructions, follow-up care, medications, Prescriptions given X 2. 11:38 Patient left the ED. jl7 Signatures: Dispatcher [employer] EDCO Bubba Tovar, RN RN Jill Villagomez, mechanical research engineer EKG Tat1 Andrés Gilmore, SHERIDAN MANAGER TRANSFUSION pm1 Cristhian Kelley, VITA RN jl7
--- NOTE | 2019-04-12 11:25 | EDPHYS ---
Physician Documentation [facility] Name: Rachael Knox Age: 34 yrs Sex: Female : 1985 Arrival Date: 04/12/2019 Time: 08:47 Bed 6 Private MD: ED Physician Isaías Alegre HPI: 04/12 09:44 This 34 yrs old Female presents to ER via EMS with complaints of Nausea. pm1 09:44 The patient presents to the emergency department with nausea. Onset: The pm1 symptoms/episode began/occurred 2 day(s) ago. Possible causes: Anemia per patient. The symptoms are aggravated by Patient stopped taking her iron supplements 1 month ago because she does not like taking medication. Associated signs and symptoms: Pertinent positives: Dizziness, sensation of the room spinning. Occasional shortness of breath with exertion, Pertinent negatives: abdominal pain, dysuria, fever, chest pain. The patient has experienced a previous episode, approximately 3 months ago, and the symptoms today are exactly the same. The patient has not recently seen a physician, and does not have an established primary care provider. 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 - Social history:: Smoking status: Patient/guardian denies using tobacco. - Ebola Screening: : No symptoms or risks identified at this time. ROS: 09:44 Constitutional: Negative for fever, chills, and weight loss, Eyes: Negative for injury, pm1 pain, redness, and discharge, ENT: Negative for injury, pain, and discharge, Neck: Negative for injury, pain, and swelling, Cardiovascular: Negative for chest pain, palpitations, and edema. 09:44 Back: Negative for injury and pain, : Negative for injury, bleeding, discharge, and swelling, MS/Extremity: Negative for injury and deformity, Skin: Negative for injury, rash, and discoloration. 09:44 Respiratory: Positive for shortness of breath, occasionally with exertion. 09:44 Abdomen/GI: Positive for nausea, Negative for abdominal pain, diarrhea, constipation. 09:44 Neuro: Positive for dizziness, Negative for headache, numbness, tingling, weakness. Exam: 09:44 Constitutional: This is a well developed, well nourished patient who is awake, alert, pm1 and in no acute distress. Head/Face: Normocephalic, atraumatic. Eyes: Pupils equal round and reactive to light, extra-ocular motions intact. Lids and lashes normal. Conjunctiva and sclera are non-icteric and not injected. Cornea within normal limits. Periorbital areas with no swelling, redness, or edema. ENT: Nares patent. No nasal discharge, no septal abnormalities noted. Tympanic membranes are normal and external auditory canals are clear. Oropharynx with no redness, swelling, or masses, exudates, or evidence of obstruction, uvula midline. Mucous membranes moist. Neck: Trachea midline, no thyromegaly or masses palpated, and no cervical lymphadenopathy. Supple, full range of motion without nuchal rigidity, or vertebral point tenderness. No Meningismus. Chest/axilla: Normal chest wall appearance and motion. Nontender with no deformity. No lesions are appreciated. Cardiovascular: Regular rate and rhythm with a normal S1 and S2. No gallops, murmurs, or rubs. No pulse deficits. Respiratory: Lungs have equal breath sounds bilaterally, clear to auscultation and percussion. No rales, rhonchi or wheezes noted. No increased work of breathing, no retractions or nasal flaring. Abdomen/GI: Soft, non-tender, with normal bowel sounds. No distension or tympany. No guarding or rebound. No evidence of tenderness throughout. Back: No spinal tenderness. No costovertebral tenderness. Full range of motion. Skin: Warm, dry with normal turgor. Normal color with no rashes, no lesions, and no evidence of cellulitis. MS/ Extremity: Pulses equal, no cyanosis. Neurovascular intact. Full, normal range of motion. 09:44 Neuro: Orientation: is normal, Motor: moves all fours. Vital Signs: 08:51 BP 143 / 99; Pulse 80; Resp 16 S; Temp 97.1(TE); Pulse Ox 96% on R/A; Weight 150.5 kg jl7 (R); Pain 0/10; 10:00 BP 120 / 81; Pulse 75; Resp 16 S; Pulse Ox 100% on R/A; jl7 11:00 BP 125 / 89; Pulse 73; Resp 16 S; Pulse Ox 96% on R/A; jl7 MDM: 08:52 Patient medically screened. pm1 11:21 Data reviewed: vital signs. Data interpreted: Pulse oximetry: on room air is 96 %. pm1 Interpretation: normal. Counseling: I had a detailed discussion with the patient and/or guardian regarding: the historical points, exam findings, and any diagnostic results supporting the discharge/admit diagnosis, lab results, radiology results, the need for outpatient follow up, to return to the emergency department if symptoms worsen or persist or if there are any questions or concerns that arise at home. 04/12 08:59 Order name: Basic Metabolic Panel; Complete Time: 10:24 pm1 04/12 08:59 Order name: CBC with Diff; Complete Time: 10:11 pm1 04/12 08:59 Order name: LFT's; Complete Time: 10:24 pm1 04/12 08:59 Order name: Magnesium; Complete Time: 10:24 pm1 04/12 08:59 Order name: NT PRO-BNP; Complete Time: 10:24 pm1 04/12 08:59 Order name: PT-INR; Complete Time: 10:11 pm1 04/12 08:59 Order name: Troponin (emerg Dept Use Only); Complete Time: 10:24 pm1 04/12 08:59 Order name: XRAY Chest (1 view); Complete Time: 09:39 pm1 04/12 08:59 Order name: EKG; Complete Time: 09:01 pm1 04/12 08:59 Order name: CT Head Brain wo Cont; Complete Time: 09:43 pm1 04/12 09:59 Order name: Urine Dipstick--Ancillary (enter results); Complete Time: 10:20 bd 04/12 09:59 Order name: Urine --Ancillary (enter results); Complete Time: 10:20 bd 04/12 08:59 Order name: Cardiac monitoring; Complete Time: 09:50 pm1 04/12 08:59 Order name: EKG - Nurse/Tech; Complete Time: 09:29 pm1 04/12 08:59 Order name: IV Saline Lock; Complete Time: 09:50 pm1 04/12 08:59 Order name: Labs collected and sent; Complete Time: 09:50 pm1 04/12 08:59 Order name: O2 Per Protocol; Complete Time: 09:10 pm1 04/12 08:59 Order name: O2 Sat Monitoring; Complete Time: 09:10 pm1 04/12 08:59 Order name: Urine Dipstick-Ancillary (obtain specimen); Complete Time: 10:09 pm1 04/12 08:59 Order name: Urine Test (obtain specimen); Complete Time: 10:09 pm1 Administered Medications: 10:39 Drug: Meclizine 50 mg Route: PO; jl7 11:00 Follow up: Response: No adverse reaction; Marked relief of symptoms jl7 Disposition: 18:28 Co-signature as Attending Physician, Isaías Alegre MD Did not see or evaluate patient. ps1 Chart signed for administrative purposes. Not an endorsement of care provided. . Disposition: 04/12/19 11:23 Discharged to Home. Impression: Benign paroxysmal vertigo. - Condition is Stable. - Discharge Instructions: Benign Positional Vertigo. - Prescriptions for Meclizine 25 mg Oral Tablet - take 1 tablet by ORAL route every 8 hours As needed; 30 tablet. Zofran 4 mg Oral Tablet - take 1 tablet by ORAL route every 12 hours As needed; 20 tablet. - Medication Reconciliation Form, Thank You Letter, Antibiotic Education, Prescription Opioid Use form. - Follow up: Emergency Department; When: As needed; Reason: Worsening of condition. Follow up: Private Physician; When: 2 - 3 days; Reason: Recheck today's complaints, Continuance of care, Re-evaluation by your physician. - Problem is new. - Symptoms have improved. Signatures: Dispatcher [facility] Andrés Gilmore, SHERIDAN DIRECTOR OF CATERING pm1 Cristhian Kelley, RN RN jl7 Isaías Alegre MD MD ps1 Corrections: (The following items were deleted from the chart) 10:29 09:01 TYPE AND SCREEN+[id number] ordered. [facility] 11:38 11:23 04/12/2019 11:23 Discharged to Home. Impression: Benign paroxysmal vertigo. jl7 Condition is Stable. Forms are Medication Reconciliation Form, Thank You Letter, Antibiotic Education, Prescription Opioid Use. Follow up: Emergency Department; When: As needed; Reason: Worsening of condition. Follow up: Private Physician; When: 2 - 3 days; Reason: Recheck today's complaints, Continuance of care, Re-evaluation by your physician. Problem is new. Symptoms have improved. pm1
[2019-04-12 11:48] VITALS: TEMP 97.1
[2019-04-12 11:50] VITALS: BP 125/89; O2SAT 96
== END 2019-04-12 11:38 | disposition home or self-care (01) ==
LOC: ER 08:48
DX: H81.10 Benign paroxysmal vertigo, unspecified ear (principal); Z88.0 Allergy status to penicillin; Z88.1 Allergy status to other antibiotic agents; Z88.2 Allergy status to sulfonamides
CPT/HCPCS: 36415; 70450; 71045; 80048; 80076; 81003; 81025; 83735; 83880; 84484; 85025; 85610; 93005; 99284; J8597

== ENCOUNTER 2019-06-19 17:47 | Emergency (ER) | payer SELFPAY ==
--- OUTSIDE RECORDS SUMMARY | 2019-06-19 17:49 | XMS REPORT ---
:1985 [facility] Address [address] [place] [address] [place] [id number] Care Team Providers Name Role Phone Unavailable Unavailable Unavailable Problems This patient has no known problems. Allergies, Adverse Reactions, Alerts This patient has no known allergies or adverse reactions. Medications This patient has no known medications.
[2019-06-19 20:25] LABS: Urine Blood 3+ (NEG); Urine Glucose NEGATIVE (NEG); Urine Protein 1+ (NEG); Urine Specific Gravity >1.030 (1.005-1.030); Urine pH 5.5 (5.0-7.0)
[2019-06-19 20:33] LABS: Urine Bacteria 20-50 /HPF (<20); Urine RBC 20-50 /HPF (NONE SEEN)
[2019-06-19 20:34] LABS: Urine Culture Reflex Order NOT NEEDED
[2019-06-19] MEDS ORDERED: KETOROLAC 30 MG/ML INJ ONE (20:51)
--- NOTE | 2019-06-19 21:37 | ER ---
Nurse's Notes [facility] Name: Rachael Knox Age: 34 yrs Sex: Female : 1985 Arrival Date: 06/19/2019 Time: 17:48 Bed 30 Private MD: Diagnosis: Low back pain;Radiculopathy, lumbosacral region;Urinary tract infection, site not specified Presentation: 06/19 18:39 Presenting complaint: Patient states: awaken by pain on the lower back. pain is sudden rv and sharp that shoots down both the lower extremities. with history of slip disc. took Tylenol, Motrin, And Prednisone which did not help. Transition of care: patient was not received from another setting of care. Onset of symptoms was June 18, 2019 at 08:00. Risk Assessment: Do you want to hurt yourself or someone else? Patient reports no desire to harm self or others. Initial Sepsis Screen: Does the patient meet any 2 criteria? No. Patient's initial sepsis screen is negative. Does the patient have a suspected source of infection? No. Patient's initial sepsis screen is negative. Care prior to arrival: None. 18:39 Method Of Arrival: Ambulatory rv 18:39 Acuity: DARSHAN 4 rv Triage Assessment: 18:44 General: Appears in no apparent distress. Behavior is calm. Pain: Complains of pain in rv lower back Pain radiates to right leg and left leg. 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 - Coronavirus screen:: The patient has NOT traveled to [place], [place], or [place] in the past 14 days. Proceed with normal triage process as indicated. The patient has NOT had contact with known/suspected case of Coronavirus? Proceed with normal triage procedures. - Social history:: Smoking status: Patient denies any tobacco usage or history of. - Ebola Screening: : No symptoms or risks identified at this time. Screenin:54 Abuse screen: Denies threats or abuse. Denies injuries from another. Nutritional ch2 screening: No deficits noted. Tuberculosis screening: No symptoms or risk factors identified. Fall Risk None identified. Assessment: 19:30 General: Appears in no apparent distress. comfortable, obese, unkempt, well developed, ch2 well nourished, Behavior is calm, cooperative, appropriate for age, Denies fever, chills. Pain:. Pain: Complains of pain in across lower back, markie hip, down both legs to markie knees Pain began 1 day ago. Is continuous, Alleviated by nothing. Neuro: No deficits noted. 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 Full function Gait is steady, Speech is normal, Facial symmetry appears normal, Pupils are PERRLA, Intact Denies weakness blurred vision dizziness, numbness headache. Cardiovascular: No deficits noted. Reports None Denies chest pain, fatigue, lightheadedness, nausea, shortness of breath, Capillary refill < 3 seconds in bilateral fingers toes Clubbing of nail beds is absent JVD is absent Patient's skin is warm and dry. Pulses are palpable in right dorsalis pedis artery and left dorsalis pedis artery Edema is 1+ to left toes and right toes Chest pain is denied. Respiratory: No deficits noted. Airway is patent Respiratory effort is even, unlabored, Respiratory pattern is regular, symmetrical. GI: No deficits noted. No signs and/or symptoms were reported involving the gastrointestinal system. : No deficits noted. No signs and/or symptoms were reported regarding the genitourinary system. EENT: No deficits noted. No signs and/or symptoms were reported regarding the EENT system. Derm: No deficits noted. No signs and/or symptoms reported regarding the dermatologic system. Skin is intact, is healthy with good turgor. Musculoskeletal: No deficits noted. No signs and/or symptoms reported regarding the musculoskeletal system. Circulation, motion, and sensation intact. Capillary refill < 3 seconds, is brisk, in bilateral fingers. toes. 20:18 Reassessment: Patient appears in no apparent distress at this time. No changes from ch2 previously documented assessment. Patient and/or family updated on plan of care and expected duration. Pain level reassessed. Patient is alert, oriented x 3, equal unlabored respirations, skin warm/dry/pink. . 20:57 Reassessment: Patient appears in no apparent distress at this time. No changes from ch2 previously documented assessment. Patient and/or family updated on plan of care and expected duration. Pain level reassessed. Patient is alert, oriented x 3, equal unlabored respirations, skin warm/dry/pink. Pain: Complains of pain in low back area and left leg and right leg Is continuous. 20:59 General: Appears uncomfortable. ch2 21:51 Reassessment: Patient appears in no apparent distress at this time. No changes from ch2 previously documented assessment. Patient and/or family updated on plan of care and expected duration. Pain level reassessed. Patient is alert, oriented x 3, equal unlabored respirations, skin warm/dry/pink. General: Appears uncomfortable, Behavior is calm, cooperative. Pain: Complains of pain in low back area and left leg and right leg Pain currently is 4 out of 10 on a pain scale. Vital Signs: 18:41 BP 128 / 87; Pulse 98; Resp 18; Temp 98; Pulse Ox 95% on R/A; Weight 151.05 kg; Height rv 5 ft. 5 in. (165.10 cm); Pain 10/10; 19:24 BP 155 / 98; Pulse 84; Resp 16; Temp 98.2; Pulse Ox 92% ; Pain 8/10; ch2 20:00 BP 108 / 62; Pulse 92; Resp 16; Temp 98.4; Pulse Ox 98% ; Pain 8/10; ch2 20:45 BP 110 / 63; Pulse 93; Resp 16; Temp 98.6; Pulse Ox 96% ; Pain 6/10; ch2 20:45 BP 113 / 85; Pulse 87; Resp 14; Temp 98.0; Pulse Ox 93% ; Pain 4/10; ch2 21:35 Pain 5/10; ch2 18:41 Body Mass Index 55.41 (151.05 kg, 165.10 cm) rv ED Course: 17:48 Patient arrived in ED. as 18:41 Triage completed. rv 18:44 Arm band placed on. rv 19:06 Ainsley Bruce FNP-C [facility]. snw 19:06 Junito Sutton MD is Attending Physician. snw 20:58 patient sitting to bedside chair, apple juice given. ch2 21:54 No provider procedures requiring assistance completed. Patient did not have IV access ch2 during this emergency room visit. Administered Medications: 20:57 Drug: TORadol 60 mg Route: IM; Site: right gluteus; ch2 21:35 Follow up: Pain 5/10 Adult; Response: No adverse reaction; Pain is decreased ch2 21:51 Drug: Macrobid 100 mg Route: PO; ch2 Outcome: 21:37 Discharge ordered by . snw 21:54 Discharged to home ambulatory, with family. ch2 21:54 Condition: good 21:54 Discharge instructions given to patient, Instructed on discharge instructions, follow up and referral plans. medication usage, Demonstrated understanding of instructions, follow-up care, medications, Prescriptions given X 3. 21:56 Patient left the ED. ch2 Signatures: Ainsley Bruce, HANDICRAFTS TEACHER-C HANDICRAFTS TEACHER-CsnBridget Almaguer Candace, VITA RN ch2 Luis Ferro RN RN rv Corrections: (The following items were deleted from the chart) 20:59 20:57 Reassessment: Patient appears in no apparent distress at this time. No changes ch2 from previously documented assessment. Patient and/or family updated on plan of care and expected duration. Pain level reassessed. Patient is alert, oriented x 3, equal unlabored respirations, skin warm/dry/pink. ch2 21:54 19:24 BP 155 / 98; Pulse 84bpm; Resp 16bpm; Pulse Ox 92%; ch2 ch2 21:54 20:00 BP 108 / 62; Pulse 92bpm; Resp 16bpm; Pulse Ox 98%; ch2 ch2 21:54 20:45 BP 110 / 63; Pulse 93bpm; Resp 16bpm; Pulse Ox 96%; ch2 ch2
--- NOTE | 2019-06-19 21:37 | EDPHYS ---
Physician Documentation [facility] Name: Rachael Knox Age: 34 yrs Sex: Female : 1985 Arrival Date: 06/19/2019 Time: 17:48 Bed 30 Private MD: ED Physician Junito Sutton HPI: 06/19 20:00 This 34 yrs old Female presents to ER via Ambulatory with complaints of Low snw Back Pain, Knee Pain, Hip Pain. 20:00 The patient presents with pain that is acute, that is chronic. The symptoms are located snw in the low back. The pain radiates to the buttocks. The problem was sustained from a chronic condition, the patient has known disc disease. Onset: The symptoms/episode began/occurred suddenly. Associated signs and symptoms: Pertinent positives: radicular pain, Pertinent negatives: dysuria, fever, incontinence, urinary retention, weakness. Severity of symptoms: At their worst the symptoms were moderate. The patient has experienced a previous episode. It is unknown whether or not the patient has recently seen a physician. 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 - Coronavirus screen:: The patient has NOT traveled to [place], [place], or [place] in the past 14 days. Proceed with normal triage process as indicated. The patient has NOT had contact with known/suspected case of Coronavirus? Proceed with normal triage procedures. - Social history:: Smoking status: Patient denies any tobacco usage or history of. - Ebola Screening: : No symptoms or risks identified at this time. ROS: 20:03 Constitutional: Negative for fever, chills, and weight loss, Eyes: Negative for injury, snw pain, redness, and discharge, ENT: Negative for injury, pain, and discharge, Neck: Negative for injury, pain, and swelling, Cardiovascular: Negative for chest pain, palpitations, and edema, Respiratory: Negative for shortness of breath, cough, wheezing, and pleuritic chest pain, Abdomen/GI: Negative for abdominal pain, nausea, vomiting, diarrhea, and constipation, : Negative for injury, bleeding, discharge, and swelling, MS/Extremity: Negative for injury and deformity, Neuro: Negative for headache, weakness, numbness, tingling, and seizure. 20:03 Back: Positive for pain at rest, pain with movement, radiated pain, of the low back area. 20:03 MS/extremity: Positive for back pain radiates to bilateral hips, no fever, no incontinence. Exam: 20:17 Head/Face: Normocephalic, atraumatic. Eyes: Pupils equal round and reactive to light, snw extra-ocular motions intact. Lids and lashes normal. Conjunctiva and sclera are non-icteric and not injected. Cornea within normal limits. Periorbital areas with no swelling, redness, or edema. ENT: Nares patent. No nasal discharge, no septal abnormalities noted. Tympanic membranes are normal and external auditory canals are clear. Oropharynx with no redness, swelling, or masses, exudates, or evidence of obstruction, uvula midline. Mucous membranes moist. Neck: Trachea midline, no thyromegaly or masses palpated, and no cervical lymphadenopathy. Supple, full range of motion without nuchal rigidity, or vertebral point tenderness. No Meningismus. Chest/axilla: Normal chest wall appearance and motion. Nontender with no deformity. No lesions are appreciated. Cardiovascular: Regular rate and rhythm with a normal S1 and S2. No gallops, murmurs, or rubs. Normal PMI, no JVD. No pulse deficits. Respiratory: Lungs have equal breath sounds bilaterally, clear to auscultation and percussion. No rales, rhonchi or wheezes noted. No increased work of breathing, no retractions or nasal flaring. Abdomen/GI: Soft, non-tender, with normal bowel sounds. No distension or tympany. No guarding or rebound. No evidence of tenderness throughout. Back: No spinal tenderness. No costovertebral tenderness. Full range of motion. Skin: Warm, dry with normal turgor. Normal color with no rashes, no lesions, and no evidence of cellulitis. MS/ Extremity: Pulses equal, no cyanosis. Neurovascular intact. Full, normal range of motion. Neuro: Awake and alert, GCS 15, oriented to person, place, time, and situation. Cranial nerves II-XII grossly intact. Motor strength 5/5 in all extremities. Sensory grossly intact. Cerebellar exam normal. Normal gait. Psych: Awake, alert, with orientation to person, place and time. Behavior, mood, and affect are within normal limits. 20:17 Constitutional: The patient appears alert, awake, obese. Vital Signs: 18:41 BP 128 / 87; Pulse 98; Resp 18; Temp 98; Pulse Ox 95% on R/A; Weight 151.05 kg; Height rv 5 ft. 5 in. (165.10 cm); Pain 10/10; 19:24 BP 155 / 98; Pulse 84; Resp 16; Temp 98.2; Pulse Ox 92% ; Pain 8/10; ch2 20:00 BP 108 / 62; Pulse 92; Resp 16; Temp 98.4; Pulse Ox 98% ; Pain 8/10; ch2 20:45 BP 110 / 63; Pulse 93; Resp 16; Temp 98.6; Pulse Ox 96% ; Pain 6/10; ch2 20:45 BP 113 / 85; Pulse 87; Resp 14; Temp 98.0; Pulse Ox 93% ; Pain 4/10; ch2 21:35 Pain 5/10; ch2 18:41 Body Mass Index 55.41 (151.05 kg, 165.10 cm) rv MDM: 19:14 Patient medically screened. snw 21:39 Data reviewed: vital signs, nurses notes. Data interpreted: Pulse oximetry: on room air snw is 96 %. Interpretation: acceptable. Counseling: I had a detailed discussion with the patient and/or guardian regarding: the historical points, exam findings, and any diagnostic results supporting the discharge/admit diagnosis, lab results, radiology results, the need for outpatient follow up, to return to the emergency department if symptoms worsen or persist or if there are any questions or concerns that arise at home. Special discussion: Based on the history and exam findings, there is no indication for further emergent testing or inpatient evaluation. I discussed with the patient/guardian the need to see the primary care provider for further evaluation of the symptoms. 06/19 19:56 Order name: Urine Culture snw 06/19 19:56 Order name: Urine Microscopic Only; Complete Time: 20:42 snw 06/19 20:18 Order name: Urine Dipstick--Ancillary (enter results); Complete Time: 20:26 em06/19 20:18 Order name: Urine --Ancillary (enter results); Complete Time: 20:26 em06/19 19:56 Order name: Urine Test (obtain specimen); Complete Time: 20:17 snw 06/19 19:56 Order name: Urine Dipstick-Ancillary (obtain specimen); Complete Time: 20:17 snw 06/19 19:56 Order name: PO challenge; Complete Time: 20:57 snw Administered Medications: 20:57 Drug: TORadol 60 mg Route: IM; Site: right gluteus; ch2 21:35 Follow up: Pain 5/10 Adult; Response: No adverse reaction; Pain is decreased ch2 21:51 Drug: Macrobid 100 mg Route: PO; ch2 Disposition: 06/20 02:44 Co-signature as Attending Physician, Junito Sutton MD. rn Disposition: 06/19/19 21:37 Discharged to Home. Impression: Low back pain, Radiculopathy, lumbosacral region, Urinary tract infection, site not specified. - Condition is Stable. - Discharge Instructions: Back Pain, Adult, Urinary Tract Infection, Adult, Back Injury Prevention, [id number], Back Exercises, Edyc-el-Pzyh, Cryotherapy, Rehydration, Adult, Heat Therapy. - Prescriptions for Mobic 7.5 mg Oral Tablet - take 1 tablet by ORAL route 1-2 times daily take with food; 20 tablet. Macrobid 100 mg Oral Capsule - take 1 capsule by ORAL route every 12 hours for 10 days; 20 capsule. orphenadrine citrate 100 mg Oral Tablet Sustained Release - take 1 tablet by ORAL route 2 times per day As needed; 20 tablet. - Work release form, Medication Reconciliation Form, Thank You Letter, Antibiotic Education, Prescription Opioid Use form. - Follow up: Emergency Department; When: As needed; Reason: Worsening of condition. Follow up: Private Physician; When: 2 - 3 days; Reason: Recheck today's complaints, Continuance of care, Re-evaluation by your physician. Signatures: Dispatcher [employer] EDHI Ainsley Bruce, COMMUNITY CULTURAL DEVELOPMENT OFFICER-C COMMUNITY CULTURAL DEVELOPMENT OFFICER-Csnw Junito Sutton MD MD rn Hanna, Candace, RN RN ch2 Luis Ferro RN RN rv Corrections: (The following items were deleted from the chart) 06/19 21:56 21:37 06/19/2019 21:37 Discharged to Home. Impression: Low back pain; Radiculopathy, ch2 lumbosacral region; Urinary tract infection, site not specified. Condition is Stable. Forms are Medication Reconciliation Form, Thank You Letter, Antibiotic Education, Prescription Opioid Use. Follow up: Emergency Department; When: As needed; Reason: Worsening of condition. Follow up: Private Physician; When: 2 - 3 days; Reason: Recheck today's complaints, Continuance of care, Re-evaluation by your physician. snw
[2019-06-19] MEDS ORDERED: NITROFURAN MACRO 100 MG CAP PO ONE (21:53)
[2019-06-19 22:12] VITALS: BP 113/85; TEMP 98.6; O2SAT 93
== END 2019-06-19 21:56 | disposition home or self-care (01) ==
LOC: ER 17:47
DX: M54.17 Radiculopathy, lumbosacral region (principal); N39.0 Urinary tract infection, site not specified; Z88.1 Allergy status to other antibiotic agents; Z88.0 Allergy status to penicillin; Z88.2 Allergy status to sulfonamides
CPT/HCPCS: 81003; 81015; 81025; 87086; 87088; 96372; 99283

== ENCOUNTER 2019-08-14 16:07 | Emergency (ER) | payer SELFPAY ==
--- OUTSIDE RECORDS SUMMARY | 2019-08-14 16:09 | XMS REPORT ---
:1985 [facility] Address [address] [place] [address] [place] [id number] Care Team Providers Name Role Phone Unavailable Unavailable Unavailable Problems This patient has no known problems. Allergies, Adverse Reactions, Alerts This patient has no known allergies or adverse reactions. Medications This patient has no known medications.
[2019-08-14] MEDS ORDERED: ASPIRIN 81 MG CHEWABLE TABLET ONE (16:55)
[2019-08-14] MEDS ORDERED: LORAZEPAM 1 MG TABLET ONE (16:56)
[2019-08-14 17:02] LABS: Absolute Lymphocytes (CBC) 1.6 K/uL (0.7-4.9); Basophils % 1.2 % (0-1.3); Hematocrit 33.4 % (36.0-45.0); Lymphocytes % 20.9 % (15.3-44.8); RBC Red Blood Cell Count 3.73 M/uL (3.86-4.86)
--- NOTE | 2019-08-14 17:19 | RAD REPORT ---
EXAM DESCRIPTION: RAD - Chest Single View - 08/14/2019 4:38 pm CLINICAL HISTORY: CHEST PAIN COMPARISON: March 2019 TECHNIQUE: AP portable chest image was obtained 08/14/2019 4:38 pm . FINDINGS: No focal lung parenchymal process. Portable technique and body habitus accentuate heart, v ascular and lung findings. Trachea is midline. Heart and vasculature are normal. No measurable pleura l effusion and no pneumothorax. No acute bony abnormality seen. No acute aortic findings suspected. IMPRESSION: No acute cardiopulmonary process. No significant change from comparison.
[2019-08-14 17:22] LABS: ALT/SGPT 22 U/L (12-78); AST/SGOT 17 U/L (15-37); Albumin 3.9 g/dL (3.4-5.0); Alkaline Phosphatase 50 U/L (45-117); BUN Blood Urea Nitrogen 7 mg/dL (7-18); Bicarbonate 27 mmol/L (21-32); Bilirubin Direct < 0.1 mg/dL (0-0.2); Bilirubin Total 0.2 mg/dL (0.2-1.0); Glucose Level 88 mg/dL (74-106); Magnesium 2.4 mg/dL (1.8-2.4); NT PRO-BNP 37 pg/mL (<125); Potassium 3.8 mmol/L (3.5-5.1); Protein, Total 7.5 g/dL (6.4-8.2); Sodium Level 141 mmol/L (136-145); Troponin (Emerg Dept Use Only) < 0.02 ng/mL (0.0-0.045)
--- NOTE | 2019-08-14 18:04 | EDPHYS ---
Physician Documentation [facility] Name: Rachael Knox Age: 34 yrs Sex: Female : 1985 Arrival Date: 08/14/2019 Time: 16:09 Bed 27 Private MD: ED Physician Rajan Samuel HPI: 08/13 16:30 This 34 yrs old Female presents to ER via Unassigned with complaints of Chest la1 Pain. 16:30 The patient or guardian reports chest pain that is located primarily in the anterior la1 chest wall. The pain does not radiate. Associated signs and symptoms: Pertinent negatives: abdominal pain, cough, diaphoresis, dizziness, headache, lower extremity pain, lower extremity swelling, lightheadedness, nausea, near syncope, palpitations, recent travel, shortness of breath, syncope, vomiting. The chest pain is described as "hot rushes". Duration: The patient or guardian reports multiple episodes, that have now resolved. Modifying factors: The symptoms are alleviated by nothing. the symptoms are aggravated by nothing. Severity of pain: At its worst the pain was moderate in the emergency department the pain has resolved. The patient has not experienced similar symptoms in the past. Historical: - Allergies: 16:39 Bactrim; ls4 16:39 mycins; ls4 16:39 PENICILLINS; ls4 16:39 Sulfa (Sulfonamide Antibiotics); ls4 - PMHx: 16:39 Anemia; Bipolar disorder; EDEMA; Hypertension; Hypothyroidism; ls4 - PSHx: 16:39 Tonsillectomy; Adenoids; ; D \\T\\ C; Tubal ligation; ls4 - Immunization history:: Adult Immunizations up to date, . - Social history:: Smoking status: Patient denies any tobacco usage or history of. ROS: 16:31 Constitutional: Negative for fever, chills, and weight loss, Eyes: Negative for injury, la1 pain, redness, and discharge, Neck: Negative for injury, pain, and swelling, Cardiovascular: + for chest pain Respiratory: Negative for shortness of breath, cough, wheezing, and pleuritic chest pain, Abdomen/GI: Negative for abdominal pain, nausea, vomiting, diarrhea, and constipation, Back: Negative for injury and pain, MS/Extremity: Negative for injury and deformity, Neuro: Negative for headache, weakness, numbness, tingling, and seizure. Exam: 16:31 Constitutional: This is a well developed, well nourished patient who is awake, alert, la1 and in no acute distress. Head/Face: Normocephalic, atraumatic. Neck: Trachea midline, Chest/axilla: Normal chest wall appearance and motion. Nontender with no deformity. No lesions are appreciated. Cardiovascular: Regular rate and rhythm with a normal S1 and S2. No gallops, murmurs, or rubs. Normal PMI, no JVD. No pulse deficits. Respiratory: Lungs have equal breath sounds bilaterally, clear to auscultation Abdomen/GI: Soft, non-tender, with normal bowel sounds. No distension or tympany. No guarding or rebound. No evidence of tenderness throughout. Obese Back: No spinal tenderness. No costovertebral tenderness. Full range of motion. Skin: Warm, dry with normal turgor. Normal color with no rashes, no lesions, and no evidence of cellulitis. 16:34 ECG was reviewed by the Attending Physician. la1 Vital Signs: 16:16 BP 127 / 96; Pulse 74; Resp 14; Temp 98.1(O); Pulse Ox 94% on R/A; Weight 154.22 kg; ls4 Height 5 ft. 5 in. (165.10 cm); Pain 0/10; 17:15 BP 122 / 88; Pulse 79; Resp 14; Temp 98.1; Pulse Ox 100% on R/A; Pain 0/10; ls4 08/14 00:12 BP 128 / 70; Pulse 71; Resp 14; Temp 98.0(O); Pulse Ox 99% on R/A; Pain 0/10; ls4 08/13 16:16 Body Mass Index 56.58 (154.22 kg, 165.10 cm) ls4 MDM: 08/13 16:13 Patient medically screened. la1 18:00 HEART Score: History: Slightly Suspicious (0), ECG: Non specific repolarization la1 disturbance / LBTB / PM (1), Age: < or = 45 years (0), Risk Factors: 1 or 2 risk factors (1), Troponin: < or = 1 x Normal Limit (0), Total Score = 2. Data reviewed: vital signs, nurses notes, EKG, radiologic studies, I have discussed the patient's presentation/case with the attending Emergency Department Physician; and as a result, I will discharge patient. Data interpreted: Pulse oximetry: on room air is 100 %. Interpretation: normal. Test interpretation: by ED physician or midlevel provider: ECG, plain radiologic studies. Counseling: I had a detailed discussion with the patient and/or guardian regarding: the historical points, exam findings, and any diagnostic results supporting the discharge/admit diagnosis, the presence of at least one elevated blood pressure reading (>120/80) during this emergency department visit, lab results, radiology results, the need for outpatient follow up, a hop worker, to return to the emergency department if symptoms worsen or persist or if there are any questions or concerns that arise at home. Medication response: ativan. Response to treatment: the patient's symptoms have resolved after treatment, and as a result, I will discharge patient. Special discussion: Based on the patient's history, exam, and Dx evaluation, there is no indication for emergent intervention or inpatient Tx. It is understood by the patient/guardian that if the Sx's persist or worsen they need to return immediately for re-evaluation. 08/13 16:24 Order name: Basic Metabolic Panel; Complete Time: :08/13 16:24 Order name: CBC with Diff; Complete Time: 17:08/13 16:24 Order name: LFT's; Complete Time: :08/13 16:24 Order name: Magnesium; Complete Time: :08/13 16:24 Order name: NT PRO-BNP; Complete Time: :08/13 16:24 Order name: Troponin (emerg Dept Use Only); Complete Time: :08/13 16:24 Order name: XRAY Chest (1 view); Complete Time: 17:08/13 16:24 Order name: EKG; Complete Time: 16:08/13 16:24 Order name: Cardiac monitoring; Complete Time: :08/13 16:24 Order name: EKG - Nurse/Tech; Complete Time: 16:08/13 16:24 Order name: IV Saline Lock; Complete Time: :08/13 16:24 Order name: Labs collected and sent; Complete Time: 16:41 la1 08/13 16:24 Order name: O2 Per Protocol; Complete Time: 16:41 la1 08/13 16:24 Order name: O2 Sat Monitoring; Complete Time: 16:41 la1 EC:34 Rate is 71 beats/min. Rhythm is regular. Left axis deviation noted. TX interval is la1 normal. QRS interval is normal. QT interval is prolonged at 512 msec. No Q waves. No ST changes noted. Clinical impression: NSR w/ Non-specific ST/T Changes. Interpreted by me. Reviewed by me. Administered Medications: 16:39 Drug: Aspirin Chewable Tablet 324 mg Route: PO; ls4 17:00 Follow up: Response: No adverse reaction ls4 16:39 Drug: Ativan 1 mg Route: PO; ls4 17:00 Follow up: Response: No adverse reaction; Marked relief of symptoms ls4 Disposition: 08/14 07:29 Co-signature as Attending Physician, Rajan Samuel MD I agree with the assessment and kdr plan of care. Disposition: 08/14/19 18:02 Discharged to Home. Impression: Chest pain, unspecified. - Condition is Stable. - Discharge Instructions: Nonspecific Chest Pain, Aspirin and Your Heart. - Medication Reconciliation Form, Thank You Letter form. - Follow up: Private Physician; When: 2 - 3 days; Reason: Recheck today's complaints, Continuance of care, Re-evaluation by your physician. Follow up: Emergency Department; When: As needed; Reason: Trouble breathing, Worsening of condition, Continuance of care. - Problem is new. - Symptoms have improved. Signatures: Dispatcher [employer] EDRI Rajan Samuel MD MD kdr Elliott Vale, DIGITAL FORENSICS INVESTIGATOR-C DIGITAL FORENSICS INVESTIGATOR-Cla1 Deena Almazan, RN RN ls4 Corrections: (The following items were deleted from the chart) 08/13 18:48 18:02 08/14/2019 18:02 Discharged to Home. Impression: Chest pain, unspecified. ls4 Condition is Stable. Forms are Medication Reconciliation Form, Thank You Letter, Antibiotic Education, Prescription Opioid Use. Follow up: Private Physician; When: 2 - 3 days; Reason: Recheck today's complaints, Continuance of care, Re-evaluation by your physician. Follow up: Emergency Department; When: As needed; Reason: Trouble breathing, Worsening of condition, Continuance of care. Problem is new. Symptoms have improved. la1
--- NOTE | 2019-08-14 18:04 | ER ---
Nurse's Notes [facility] Name: Rachael Knox Age: 34 yrs Sex: Female : 1985 Arrival Date: 08/14/2019 Time: 16:09 Bed 27 Private MD: Diagnosis: Chest pain, unspecified Presentation: 08/13 16:16 Chief complaint: Patient states: Since yesterday, pt states she has a hot flash in her ls4 chest and pain. It comes and goes. Denies nausea, vomiting, diaphoresis, dizziness. pt denies cough and fever. pt states she has no insurance and is not taking her Synthroid, blood pressure or bipolar medications. 16:16 Coronavirus screen: Patient denies fever greater than 100.4F, cough, shortness of ls4 breath, or difficulty breathing. Ebola Screen: No symptoms or risks identified at this time. Initial Sepsis Screen: Does the patient meet any 2 criteria? No. Patient's initial sepsis screen is negative. Risk Assessment: Do you want to hurt yourself or someone else? Patient reports no desire to harm self or others. 16:16 Method Of Arrival: Ambulatory ls4 16:16 Acuity: DARSHAN 3 ls4 16:39 Initial Sepsis Screen: Does the patient have a suspected source of infection? No. ls4 Patient's initial sepsis screen is negative. Triage Assessment: 16:39 General: Appears in no apparent distress. Behavior is calm, cooperative, quiet. Pain: ls4 Denies pain. Cardiovascular: Reports chest pain, Capillary refill < 3 seconds Patient's skin is warm and dry. Rhythm is regular. Respiratory: Airway is patent Respiratory effort is even, unlabored, Respiratory pattern is regular, Denies cough, shortness of breath at rest. Historical: - Allergies: 16:39 Bactrim; ls4 16:39 mycins; ls4 16:39 PENICILLINS; ls4 16:39 Sulfa (Sulfonamide Antibiotics); ls4 - PMHx: 16:39 Anemia; Bipolar disorder; EDEMA; Hypertension; Hypothyroidism; ls4 - PSHx: 16:39 Tonsillectomy; Adenoids; ; D \T\ C; Tubal ligation; ls4 - Immunization history:: Adult Immunizations up to date, . - Social history:: Smoking status: Patient denies any tobacco usage or history of. Screenin:15 Abuse screen: Denies threats or abuse. Denies injuries from another. Nutritional ls4 screening: No deficits noted. Tuberculosis screening: No symptoms or risk factors identified. Fall Risk None identified. Assessment: 16:17 Also complains of no other symptoms. ls4 16:17 General: Appears in no apparent distress. Behavior is calm, cooperative. Pain: Pain ls4 does not radiate. Pain began 2-3 days ago. Is intermittent. Neuro: No deficits noted. Cardiovascular: No deficits noted. Cardiovascular: Reports chest pain, since 3days comes and goes Denies diaphoresis, fatigue, lightheadedness, nausea, palpitations, shortness of breath, syncope, vomiting. Respiratory: No deficits noted. GI: No deficits noted. No signs and/or symptoms were reported involving the gastrointestinal system. : No deficits noted. No signs and/or symptoms were reported regarding the genitourinary system. Derm: No deficits noted. No signs and/or symptoms reported regarding the dermatologic system. Vital Signs: 16:16 BP 127 / 96; Pulse 74; Resp 14; Temp 98.1(O); Pulse Ox 94% on R/A; Weight 154.22 kg; ls4 Height 5 ft. 5 in. (165.10 cm); Pain 0/10; 17:15 BP 122 / 88; Pulse 79; Resp 14; Temp 98.1; Pulse Ox 100% on R/A; Pain 0/10; ls4 08/14 00:12 BP 128 / 70; Pulse 71; Resp 14; Temp 98.0(O); Pulse Ox 99% on R/A; Pain 0/10; ls4 08/13 16:16 Body Mass Index 56.58 (154.22 kg, 165.10 cm) ls4 ED Course: 08/13 16:09 Patient arrived in ED. as 16:13 Elliott Vale FNP-C [facility]. la1 16:13 Rajan Samuel MD is Attending Physician. la1 16:15 No provider procedures requiring assistance completed. Patient maintains SpO2 ls4 saturation greater than 95% on room air. 16:15 equipment monitor phototypesetting on. Pulse ox on. NIBP on. ls4 16:17 Arm band placed on. EKG completed in triage. Results shown to MD. ls4 16:20 Deena Almazan, RN is Primary Nurse. ls4 16:37 Triage completed. ls4 16:38 XRAY Chest (1 view) In Process Unspecified. EDMS 16:39 Initial lab(s) drawn, by me, sent to lab. EKG done, by ED staff. Inserted saline lock: lt1 22 gauge in right antecubital area, using aseptic technique. 16:44 Call light in reach. Door closed. Lights dimmed. Warm blanket given. lt1 18:27 IV discontinued, intact, bleeding controlled, No redness/swelling at site. Pressure ls4 dressing applied. Administered Medications: 16:39 Drug: Aspirin Chewable Tablet 324 mg Route: PO; ls4 17:00 Follow up: Response: No adverse reaction ls4 16:39 Drug: Ativan 1 mg Route: PO; ls4 17:00 Follow up: Response: No adverse reaction; Marked relief of symptoms ls4 Outcome: 18:02 Discharge ordered by MD. la1 18:28 Patient left the ED. ls4 18:28 Discharged to home ambulatory, with family. ls4 18:28 Condition: stable 18:28 Discharge instructions given to patient, family, Instructed on discharge instructions, follow up and referral plans. medication usage, Demonstrated understanding of instructions, follow-up care, medications. Signatures: Dispatcher [employer] EDMS Bridget Kwon Lee, ANIMAL TREATMENT INVESTIGATOR-C ANIMAL TREATMENT INVESTIGATOR-Cla1 Deena Almazan, RN RN ls4 Ramila Cobos lt1 Corrections: (The following items were deleted from the chart) 03 00:13 08/13 18:48 Patient left the ED. ls4 ls4
[2019-08-14 18:54] VITALS: BP 127/96; TEMP 98.1; O2SAT 94
--- NOTE | 2019-08-15 07:25 | EKG ---
Test Date: 2019-08-14 Test Time: 16:17:40 Banquet Line Cook: GUEROT MEASUREMENT RESULTS: Intervals: Rate: 71 RI: 142 QRSD: 98 QT: 478 QTc: 519 [place]: P: 52 RI: 142 QRS: -3 T: 9 INTERPRETIVE STATEMENTS: Normal sinus rhythm Low voltage QRS Cannot rule out Anterior infarct, age undetermined Abnormal ECG Compared to ECG 04/12/2019 09:23:26 Prolonged QT interval no longer present Myocardial infarct finding still present Electronically Signed On 08-15-19 07:24:38 CDT by Dagoberto Ramos
== END 2019-08-14 18:48 | disposition home or self-care (01) ==
LOC: ER 16:07
DX: R07.9 Chest pain, unspecified (principal); Z88.1 Allergy status to other antibiotic agents; Z88.0 Allergy status to penicillin; Z88.2 Allergy status to sulfonamides
CPT/HCPCS: 36415; 71045; 80048; 80076; 83735; 83880; 84484; 85025; 93005; 99285

== ENCOUNTER 2019-10-21 21:11 | Emergency (ER) | payer SELFPAY ==
--- OUTSIDE RECORDS SUMMARY | 2019-10-21 21:12 | XMS REPORT ---
:1985 Author Organization [facility] Address [address] [place] [address] [place] [id number] Care Team Providers Name Role Phone Unavailable Unavailable Unavailable Problems This patient has no known problems. Allergies, Adverse Reactions, Alerts This patient has no known allergies or adverse reactions. Medications This patient has no known medications. Procedures This patient has no known procedures. Results This patient has no known results.
[2019-10-21] MEDS ORDERED: LORAZEPAM 1 MG TABLET ONE (21:40)
[2019-10-21 22:48] VITALS: BP 122/80; TEMP 97.4; O2SAT 95
--- NOTE | 2019-10-24 17:27 | EDPHYS ---
Physician Documentation [facility] Name: Rachael Knox Age: 34 yrs Sex: Female : 1985 Arrival Date: 10/21/2019 Time: 21:15 Bed 7 Private MD: ED Physician Jaylan Ortiz HPI: 10/20 21:27 This 34 yrs old Female presents to ER via Ambulatory with complaints of Panic jmm Attacks. 21:27 The patient presents to the emergency department with anxiety. Onset: The jmm symptoms/episode began/occurred today. Past psychiatric history: Psychiatric medications include: Ativan. Associated signs and symptoms: Pertinent negatives: abdominal pain, chest pain, hallucinations, headache, homicidal ideation, palpitations, paranoia, suicide ideation. The patient has experienced similar episodes in the past. 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 - Social history:: Smoking status: Patient denies any tobacco usage or history of. ROS: 21:27 Constitutional: Negative for fever, chills, and weight loss, Cardiovascular: Negative jmm for chest pain, palpitations, and edema, Respiratory: Negative for shortness of breath, cough, wheezing, and pleuritic chest pain, Abdomen/GI: Negative for abdominal pain, nausea, vomiting, diarrhea, and constipation. 21:27 Psych: Positive for anxiety. 21:27 All other systems are negative. Exam: 21:27 Head/Face: atraumatic. Eyes: EOMI, no conjunctival erythema appreciated ENT: Moist jmm Mucus Membranes Neck: Trachea midline, Supple Chest/axilla: Normal chest wall appearance and motion. Cardiovascular: Regular rate and rhythm. No edema appreciated Respiratory: Normal respirations, no respiratory distress appreciated Abdomen/GI: Non distended, soft Back: Normal ROM Skin: General appearance color normal MS/ Extremity: Moves all extremities, no obvious deformities appreciated, no edema noted to the lower extremities Neuro: Awake and alert, normal gait 21:27 Constitutional: The patient appears alert, awake, anxious. 21:27 Psych: Behavior/mood is pleasant, cooperative, anxious. Vital Signs: 21:18 BP 122 / 80; Pulse 76; Resp 16 S; Temp 97.4(TE); Pulse Ox 95% on R/A; Weight 151.95 kg; ca1 Height 5 ft. 5 in. (165.10 cm) (R); Pain 0/10; 21:18 Body Mass Index 55.75 (151.95 kg, 165.10 cm) ca1 MDM: 21:27 Patient medically screened. [facility] 22:25 Data reviewed: vital signs, nurses notes. Counseling: I had a detailed discussion with teresita the patient and/or guardian regarding: the historical points, exam findings, and any diagnostic results supporting the discharge/admit diagnosis, the need for outpatient follow up, to return to the emergency department if symptoms worsen or persist or if there are any questions or concerns that arise at home. ED course: Symptoms alleviated in the ED. Patient is advised to follow up with pcp. Patient is otherwise given strict return precautions. Patient understood and agrees with the plan of care. . Administered Medications: 21:36 Drug: Ativan 2 mg Route: PO; lp1 22:41 Follow up: Response: No adverse reaction; Marked relief of symptoms lp1 Disposition: 10/21 05:35 Co-signature as Attending Physician, Jaylan Ortiz MD. [facility] Disposition: 10/21/19 22:27 Discharged to Home. Impression: Panic disorder [episodic paroxysmal anxiety] without agoraphobia. - Condition is Stable. - Discharge Instructions: Panic Attacks. - Prescriptions for Hydroxyzine HCl 50 mg Oral Tablet - take 1 tablet by ORAL route every 8 hours As needed; 20 tablet. - Medication Reconciliation Form, Thank You Letter, Antibiotic Education, Prescription Opioid Use form. - Follow up: Private Physician; When: 2 - 3 days; Reason: Recheck today's complaints, Continuance of care, Re-evaluation by your physician. Signatures: Vernon Childs PA PA [facility] Omayra Hall RN RN 1 Maria Ramsay RN RN ca1 Jaylan Ortiz MD MD [facility] Corrections: (The following items were deleted from the chart) 10/20 22:42 22:27 10/21/2019 22:27 Discharged to Home. Impression: Panic disorder [episodic lp1 paroxysmal anxiety] without agoraphobia. Condition is Stable. Forms are Medication Reconciliation Form, Thank You Letter, Antibiotic Education, Prescription Opioid Use. Follow up: Private Physician; When: 2 - 3 days; Reason: Recheck today's complaints, Continuance of care, Re-evaluation by your physician. teresita
--- NOTE | 2019-10-24 17:27 | ER ---
Nurse's Notes [facility] Name: Rachael Knox Age: 34 yrs Sex: Female : 1985 Arrival Date: 10/21/2019 Time: 21:15 Bed 7 Private MD: Diagnosis: Panic disorder [episodic paroxysmal anxiety] without agoraphobia Presentation: 10/20 21:18 Chief complaint: Patient states: "I am having panic attacks all day". Reports history ca1 of anxiety, was on meds but not anymore. Coronavirus screen: Proceed with normal triage. Patient denies a cough. Patient denies shortness of breath or difficulty breathing. Patient denies measured and/or subjective temperature greater than 100.4F prior to today's visit. Patient denies travel on a cruise ship or to a country the [facility] currently lists as an affected area. Patient denies contact with known and/or suspected case of COVID-19. Ebola Screen: Patient negative for fever greater than or equal to 101.5 degrees Fahrenheit, and additional compatible Ebola Virus Disease symptoms Patient denies exposure to infectious person. Patient denies travel to an Ebola-affected area in the 21 days before illness onset. No symptoms or risks identified at this time. Initial Sepsis Screen: Does the patient meet any 2 criteria? No. Patient's initial sepsis screen is negative. Does the patient have a suspected source of infection? No. Patient's initial sepsis screen is negative. Risk Assessment: Do you want to hurt yourself or someone else? Patient reports no desire to harm self or others. Onset of symptoms was October 21, 2019. 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 - Social history:: Smoking status: Patient denies any tobacco usage or history of. Screenin:28 Abuse screen: Denies threats or abuse. Denies injuries from another. Nutritional lp1 screening: No deficits noted. Tuberculosis screening: No symptoms or risk factors identified. Fall Risk None identified. Assessment: 21:35 Reassessment: Verbal order from Provider for Ativan 2mg PO. General: Appears lp1 uncomfortable, obese, Behavior is anxious, crying. Pain: Denies pain. Neuro: Level of Consciousness is awake, alert, obeys commands, Oriented to person, place, time, situation. Cardiovascular: Patient's skin is warm and dry. Respiratory: Respiratory effort is even, unlabored. GI: Abdomen is obese. : No signs and/or symptoms were reported regarding the genitourinary system. EENT: No signs and/or symptoms were reported regarding the EENT system. Derm: Skin is pink, warm \\T\\ dry. Musculoskeletal: No deficits noted. 22:41 Reassessment: Patient appears in no apparent distress at this time. Reassessment: lp1 Patient states feeling better. General: Appears in no apparent distress. comfortable. 22:41 Reassessment: Patient states understanding of discharge instruction from Provider; lp1 steady gait noted on discharge. Vital Signs: 21:18 BP 122 / 80; Pulse 76; Resp 16 S; Temp 97.4(TE); Pulse Ox 95% on R/A; Weight 151.95 kg; ca1 Height 5 ft. 5 in. (165.10 cm) (R); Pain 0/10; 21:18 Body Mass Index 55.75 (151.95 kg, 165.10 cm) ca1 ED Course: 21:15 Patient arrived in ED. bp1 21:20 Triage completed. ca1 21:21 Arm band placed on right wrist. ca1 21:25 Vernon Childs PA is PHCP. jmm 21:25 Jaylan Ortiz MD is Attending Physician. [facility] 21:26 Omayra Hall, VITA is Primary Nurse. lp1 21:28 Patient has correct armband on for positive identification. lp1 22:40 No provider procedures requiring assistance completed. Patient did not have IV access lp1 during this emergency room visit. Administered Medications: 21:36 Drug: Ativan 2 mg Route: PO; lp1 22:41 Follow up: Response: No adverse reaction; Marked relief of symptoms lp1 Outcome: 22:27 Discharge ordered by . teresita 22:40 Discharged to home ambulatory, with friend. lp1 22:40 Condition: good 22:40 Discharge instructions given to patient, Instructed on discharge instructions, follow up and referral plans. medication usage, Demonstrated understanding of instructions, follow-up care, medications, Prescriptions given X 1. 22:42 Patient left the ED. lp1 Signatures: Vernon Childs PA PA jmm Pena, Laura RN RN lp1 Maria Ramsay RN RN ca1 Johnna Asher [facility]
== END 2019-10-21 22:42 | disposition home or self-care (01) ==
LOC: ER 21:11
DX: F41.0 Panic disorder [episodic paroxysmal anxiety] (principal); I10 Essential (primary) hypertension; Z88.0 Allergy status to penicillin; Z88.1 Allergy status to other antibiotic agents; Z88.2 Allergy status to sulfonamides
CPT/HCPCS: 99283

== ENCOUNTER 2019-11-20 19:05 | Emergency (ER) | payer SELFPAY ==
--- OUTSIDE RECORDS SUMMARY | 2019-11-20 19:10 | XMS REPORT | Continuity of Care Document ---
:1985 Author Organization [facility] t Address [address] [place] [address] Dr. Marshall [address] [place] [id number] Care Team Providers Name Role Phone Unavailable Unavailable Unavailable Problems This patient has no known problems. Allergies, Adverse Reactions, Alerts This patient has no known allergies or adverse reactions. Medications This patient has no known medications. Procedures This patient has no known procedures. Results This patient has no known results.
[2019-11-20] MEDS ORDERED: HYDROCODONE/APAP 7.5/325 MG TAB ONE (20:08)
--- NOTE | 2019-11-20 20:30 | RAD REPORT ---
EXAM DESCRIPTION: RAD - Knee Left 3 View - 11/20/2019 8:22 pm CLINICAL HISTORY: Left knee pain status post injury FINDINGS: No fracture or dislocation is seen. Soft tissue swelling is present
--- NOTE | 2019-11-20 20:46 | EDPHYS ---
Physician Documentation [facility] Name: Rachael Knox Age: 34 yrs Sex: Female : 1985 Arrival Date: 11/20/2019 Time: 19:07 Bed 6 Private MD: ED Physician Tiny Pyle HPI: 11/19 20:00 This 34 yrs old Female presents to ER via Wheelchair with complaints of Knee cp Injury. 20:00 The patient presents with an injury, pain, that is acute. The complaints affect the cp left knee. Context: The problem was sustained at home, resulted from playing with children, the patient can partially bear weight, Problem is a result from a previous injury: No. 20:00 Onset: The symptoms/episode began/occurred today. cp FNPS: 19:40 LMP 10/04/2019 ca1 Historical: - Allergies: 19:40 Bactrim; ca1 19:40 mycins; ca1 19:40 PENICILLINS; ca1 19:40 Sulfa (Sulfonamide Antibiotics); ca1 - PMHx: 19:40 Anemia; Bipolar disorder; EDEMA; Hypertension; Hypothyroidism; ca1 - PSHx: 19:40 Tonsillectomy; Adenoids; ; Tubal ligation; D \T\ C; ca1 - Immunization history:: Adult Immunizations up to date. - Social history:: Smoking status: Patient denies any tobacco usage or history of. ROS: 20:05 MS/extremity: Positive for pain, tenderness, of the left knee, Negative for decreased cp range of motion, deformity, paresthesias. 20:05 Constitutional: Negative for body aches, chills, fever. cp 20:05 Neck: Negative for pain with movement, pain at rest, stiffness. 20:05 Cardiovascular: Negative for chest pain, palpitations. 20:05 Respiratory: Negative for cough, shortness of breath, wheezing. 20:05 Abdomen/GI: Negative for abdominal pain. 20:05 Back: Negative for pain at rest, pain with movement. 20:05 Neuro: Negative for altered mental status, headache, weakness. 20:05 All other systems are negative. Exam: 20:13 Constitutional: The patient appears in no acute distress, alert, awake, well developed, cp well nourished, obese. 20:13 Musculoskeletal/extremity: ROM: limited passive range of motion due to pain, in the cp left knee, Perfusion: the extremity is normally perfused throughout, Sensation intact. Joints: All joints are normal except the left knee displays pain at rest, painful range of motion, tenderness. Vital Signs: 19:38 BP 132 / 89; Pulse 76; Resp 15 S; Temp 97.5(TE); Pulse Ox 100% on R/A; Weight 152.86 kg ca1 (R); Height 5 ft. 5 in. (165.10 cm) (R); Pain 9/10; 21:04 Pulse 75; Resp 16 S; Pulse Ox 100% on R/A; jd3 19:38 Body Mass Index 56.08 (152.86 kg, 165.10 cm) ca1 Procedures: 21:00 Splinting: Splint applied to left knee using knee immobilizer, applied by nurse. cp Examined by me, post splint application: neurovascular intact, Patient tolerated well. MDM: 19:39 Patient medically screened. cp 20:00 Differential diagnosis: dislocation, closed fracture, tendonitis, tendon injury. cp 20:45 Data reviewed: vital signs, nurses notes, radiologic studies, plain films. cp 20:46 Counseling: I had a detailed discussion with the patient and/or guardian regarding: the cp historical points, exam findings, and any diagnostic results supporting the discharge/admit diagnosis, radiology results, the need for outpatient follow up, a orthopedic surgeon, to return to the emergency department if symptoms worsen or persist or if there are any questions or concerns that arise at home. 20:46 Response to treatment: the patient's symptoms have markedly improved after treatment, cp and as a result, I will discharge patient. 11/19 20:21 Order name: Knee Left 3 View; Complete Time: 20:44 EDMS 11/19 20:44 Interpretation: Report reviewed. cp 11/19 20:44 Order name: Knee Immobilizer; Complete Time: 21:00 cp 11/19 20:44 Order name: Crutches; Complete Time: 21:00 cp Administered Medications: 20:00 Drug: Hydrocodone-Acetaminophen (7.5 mg-325 mg) 1 tabs Route: PO; jd3 21:00 Follow up: Response: No adverse reaction; RASS: Alert and Calm (0) jd3 Disposition: 21:00 Chart complete. cp Disposition: 11/20/19 20:45 Discharged to Home. Impression: Pain in left knee. - Condition is Stable. - Discharge Instructions: Elastic Bandage and RICE, Knee Immobilizer, Knee Pain. - Prescriptions for Naprosyn 500 mg Oral Tablet - take 1 tablet by ORAL route 2 times per day take with food; 20 tablet. - Medication Reconciliation Form, Thank You Letter, Antibiotic Education, Prescription Opioid Use form. - Follow up: Bubba Baltazar MD; When: 2 - 3 days; Reason: Recheck today's complaints. - Problem is new. - Symptoms have improved. Addendum: 11/25/2019 19:08 Co-signature as Attending Physician, Tiny Pyle MD. m a2 Signatures: Dispatcher [employer] EDMS Kang Clemente PA PA cp Davies, Jonathon, RN RN jd3 Tiny Pyle MD MD ma2 Maria Ramsay RN RN ca1 Corrections: (The following items were deleted from the chart) 11/19 20:21 19:57 Knee Right 3 View+RAD.RAD.BRZ ordered. EDCA EDMS 21:05 20:45 11/20/2019 20:45 Discharged to Home. Impression: Pain in left knee. Condition is jd3 Stable. Forms are Medication Reconciliation Form, Thank You Letter, Antibiotic Education, Prescription Opioid Use. Follow up: Bubba Baltazar; When: 2 - 3 days; Reason: Recheck today's complaints. Problem is new. Symptoms have improved. cp
--- NOTE | 2019-11-20 20:46 | ER ---
Nurse's Notes [facility] Name: Rachael Knox Age: 34 yrs Sex: Female : 1985 Arrival Date: 11/20/2019 Time: 19:07 Bed 6 Private MD: Diagnosis: Pain in left knee Presentation: 11/19 19:38 Chief complaint: Patient states: Horse playing with the kids when heard and felt L knee ca1 pop and went sideways. Pushed it back but it still hurt. C/O L knee pain. Coronavirus screen: Proceed with normal triage. Patient denies a cough. Patient denies shortness of breath or difficulty breathing. Patient denies measured and/or subjective temperature greater than 100.4F prior to today's visit. Patient denies travel on a cruise ship or to a country the [facility] currently lists as an affected area. Patient denies contact with known and/or suspected case of COVID-19. Ebola Screen: Patient negative for fever greater than or equal to 101.5 degrees Fahrenheit, and additional compatible Ebola Virus Disease symptoms Patient denies exposure to infectious person. Patient denies travel to an Ebola-affected area in the 21 days before illness onset. No symptoms or risks identified at this time. Initial Sepsis Screen: Does the patient meet any 2 criteria? No. Patient's initial sepsis screen is negative. Does the patient have a suspected source of infection? No. Patient's initial sepsis screen is negative. Risk Assessment: Do you want to hurt yourself or someone else? Patient reports no desire to harm self or others. 19:38 Method Of Arrival: Wheelchair ca1 19:38 Acuity: DARSHAN 4 ca1 19:43 Onset of symptoms was November 20, 2019. jd3 Triage Assessment: 19:43 Injury Description: pt reporting hearing a pop in the left knee then pain. jd3 PMO LEAD: 19:40 LMP 10/04/2019 ca1 Historical: - Allergies: 19:40 Bactrim; ca1 19:40 mycins; ca1 19:40 PENICILLINS; ca1 19:40 Sulfa (Sulfonamide Antibiotics); ca1 - PMHx: 19:40 Anemia; Bipolar disorder; EDEMA; Hypertension; Hypothyroidism; ca1 - PSHx: 19:40 Tonsillectomy; Adenoids; ; Tubal ligation; D \T\ C; ca1 - Immunization history:: Adult Immunizations up to date. - Social history:: Smoking status: Patient denies any tobacco usage or history of. Screenin:42 Abuse screen: Denies threats or abuse. Nutritional screening: No deficits noted. jd3 Tuberculosis screening: No symptoms or risk factors identified. Fall Risk Ambulatory Aid- None/Bed Rest/Nurse Assist (0 pts). Gait- Normal/Bed Rest/Wheelchair (0 pts) Mental Status- Oriented to own ability (0 pts). Total Brink Fall Scale indicates No Risk (0-24 pts). Assessment: 19:41 General: Appears in no apparent distress. uncomfortable, Behavior is calm, cooperative, jd3 appropriate for age. Pain: Complains of pain in posterior aspect of left knee and left knee Quality of pain is described as sharp, tender, Aggravated by increased activity, repositioning, weight bearing. Neuro: Level of Consciousness is awake, alert, obeys commands, Oriented to person, place, time, situation. Cardiovascular: Denies chest pain, Capillary refill < 3 seconds Patient's skin is warm and dry. Respiratory: Airway is patent Respiratory effort is even, unlabored, Respiratory pattern is regular, symmetrical, Denies cough, shortness of breath. GI: No signs and/or symptoms were reported involving the gastrointestinal system. : No signs and/or symptoms were reported regarding the genitourinary system. EENT: No signs and/or symptoms were reported regarding the EENT system. Derm: Skin is intact, Skin is dry, Skin is normal, Skin temperature is warm. Musculoskeletal: Circulation, motion, and sensation intact. Range of motion: limited in left knee. 20:43 Reassessment: Patient appears in no apparent distress at this time. No changes from jd3 previously documented assessment. Patient and/or family updated on plan of care and expected duration. Pain level reassessed. Patient is alert, oriented x 3, equal unlabored respirations, skin warm/dry/pink. Vital Signs: 19:38 BP 132 / 89; Pulse 76; Resp 15 S; Temp 97.5(TE); Pulse Ox 100% on R/A; Weight 152.86 kg ca1 (R); Height 5 ft. 5 in. (165.10 cm) (R); Pain 9/10; 21:04 Pulse 75; Resp 16 S; Pulse Ox 100% on R/A; jd3 19:38 Body Mass Index 56.08 (152.86 kg, 165.10 cm) ca1 ED Course: 19:07 Patient arrived in ED. as 19:33 Kang Clemente PA is PHCP. cp 19:33 Tiny Pyle MD is Attending Physician. cp 19:40 Triage completed. ca1 19:40 Neftali Feldman, RN is Primary Nurse. jd3 19:40 Arm band placed on right wrist. ca1 19:42 Patient has correct armband on for positive identification. Bed in low position. Call jd3 light in reach. Side rails up X 1. Pulse ox on. NIBP on. 20:22 Knee Left 3 View In Process Unspecified. EDMS 20:45 Bubba Baltazar MD is Referral Physician. cp 21:00 Crutch training done. Knee immobilizer applied on left knee. ds4 21:03 No provider procedures requiring assistance completed. Patient did not have IV access jd3 during this emergency room visit. Administered Medications: 20:00 Drug: Hydrocodone-Acetaminophen (7.5 mg-325 mg) 1 tabs Route: PO; jd3 21:00 Follow up: Response: No adverse reaction; RASS: Alert and Calm (0) jd3 Outcome: 20:45 Discharge ordered by MD. cp 21:04 Discharged to home via wheelchair, with family. jd3 21:04 Condition: stable 21:04 Discharge instructions given to patient, Instructed on discharge instructions, follow up and referral plans. medication usage, Demonstrated understanding of instructions, follow-up care, medications, Prescriptions given X 1. 21:05 Patient left the ED. jd3 Signatures: Dispatcher [employer] EDMS Bridget Kwon Donovan ds4 Kang Clemente PA PA cp Neftali Feldman, RN RN jd3 Maria Ramsay RN RN ca1
[2019-11-20 21:24] VITALS: BP 132/89; TEMP 97.5; O2SAT 100
== END 2019-11-20 21:05 | disposition home or self-care (01) ==
LOC: ER 19:05
DX: M25.562 Pain in left knee (principal); I10 Essential (primary) hypertension; Z88.0 Allergy status to penicillin; Z88.1 Allergy status to other antibiotic agents; Z88.2 Allergy status to sulfonamides; Z88.3 Allergy status to other anti-infective agents
CPT/HCPCS: 99284

== ENCOUNTER 2019-12-26 22:05 | Emergency (ER) | payer SELFPAY ==
--- OUTSIDE RECORDS SUMMARY | 2019-12-26 22:07 | XMS REPORT | Continuity of Care Document ---
:1985 Author Organization [facility] t Address [address] [place] [address] Dr. Marshall [address] [place] [id number] Care Team Providers Name Role Phone Unavailable Unavailable Unavailable Problems This patient has no known problems. Allergies, Adverse Reactions, Alerts This patient has no known allergies or adverse reactions. Medications This patient has no known medications. Procedures This patient has no known procedures. Results This patient has no known results.
--- NOTE | 2019-12-26 22:56 | ER ---
Nurse's Notes [facility] Name: Rachael Knox Age: 34 yrs Sex: Female : 1985 Arrival Date: 12/26/2019 Time: 22:13 Bed 13 Private MD: Diagnosis: Presentation: 12/25 22:05 Chief complaint: EMS states: BIBA FROM HOME PT WITH HX OF CHRONIC ABD PAIN, THIS mt2 EVENING WITH EPIGASTRIC PAIN AND VOMITING BLOOD. DENIES BLOODY STOOLS. DENIES FEVER COUGH OR SOB. Coronavirus screen: Client denies travel out of the [place] in the last 14 days. At this time, the client does not indicate any symptoms associated with coronavirus-19. Ebola Screen: No symptoms or risks identified at this time. Initial Sepsis Screen: Does the patient meet any 2 criteria? No. Patient's initial sepsis screen is negative. Does the patient have a suspected source of infection? No. Patient's initial sepsis screen is negative. Risk Assessment: Do you want to hurt yourself or someone else? Patient reports no desire to harm self or others. Onset of symptoms was December 26, 2019. Care prior to arrival: None. 22:05 Method Of Arrival: EMS: [facility] mt2 22:05 Acuity: DARSHAN 3 mt2 Triage Assessment: 22:26 General: Appears uncomfortable, Behavior is cooperative. Pain: Complains of pain in mt2 epigastric area. EENT: No deficits noted. Neuro: No deficits noted. Cardiovascular: No deficits noted. Respiratory: No deficits noted. GI: Reports upper abdominal pain, nausea, vomiting. 22:27 : No deficits noted. Derm: No deficits noted. Musculoskeletal: No deficits noted. mt2 Historical: - Allergies: 22:24 Bactrim; mt2 22:24 mycins; mt2 22:24 PENICILLINS; mt2 22:24 Sulfa (Sulfonamide Antibiotics); mt2 - PMHx: 22:26 Anxiety; mt2 - Immunization history:: Adult Immunizations up to date. - Social history:: Smoking status: Patient denies any tobacco usage or history of. Patient/guardian denies using alcohol, street drugs. Screenin:27 Abuse screen: Denies threats or abuse. Nutritional screening: No deficits noted. mt2 Tuberculosis screening: No symptoms or risk factors identified. Fall Risk None identified. Assessment: 22:39 General: Appears obese, Behavior is calm, cooperative. Pain: Complains of pain in rv abdomen. Neuro: Level of Consciousness is awake, alert, obeys commands, Oriented to person, place, time, situation. Cardiovascular: Patient's skin is warm and dry. Respiratory: Airway is patent. GI: Abdomen is round non-distended, Bowel sounds present X 4 quads. Abd is soft and non tender X 4 quads. Derm: Skin is intact. 22:50 Reassessment:. rv 22:50 Reassessment: patient eloped from the examination room for unknown reason. rv Vital Signs: 22:05 BP 119 / 81; Pulse 84; Resp 17; Temp 98.3; Pulse Ox 94% ; Weight 150.14 kg; Height 5 mt2 ft. 5 in. (165.10 cm); Pain 9/10; 22:27 BP 140 / 100; Pulse 81; Resp 16; Temp 98.6; Pulse Ox 94% ; Pain 9/10; mt2 22:05 Body Mass Index 55.08 (150.14 kg, 165.10 cm) mt2 ED Course: 22:13 Patient arrived in ED. cf2 22:16 Cornell Moore PA is PHCP. jr8 22:16 Junito Sutton MD is Attending Physician. jr8 22:24 Triage completed. mt2 22:26 Arm band placed on right wrist. mt2 22:39 Luis Ferro, VITA is Primary Nurse. rv 22:41 Patient has correct armband on for positive identification. Pulse ox on. NIBP on. rv 22:45 Warm blanket given. rv Administered Medications: No medications were administered Outcome: 22:50 Eloped from waiting room, after seeing physician Time discovered patient gone: December rv 2019 at 22:50 22:50 unknown 22:57 Patient left the ED. rv Signatures: Cornell Moore PA PA jr8 Luis Ferro, VITA RN rv John Marin cf2 Evelyn Cross RN RN mt2
--- NOTE | 2019-12-26 22:56 | EDPHYS ---
Physician Documentation [facility] Name: Rachael Knox Age: 34 yrs Sex: Female : 1985 Arrival Date: 12/26/2019 Time: 22:13 Bed 13 Private MD: ED Physician Junito Sutton HPI: 12/25 22:50 This 34 yrs old Female presents to ER via EMS with complaints of Vomiting. jr8 22:50 The patient presents to the emergency department with nausea, vomiting. Onset: The jr8 symptoms/episode began/occurred acutely, today. Possible causes: unknown. The symptoms are aggravated by nothing. The symptoms are alleviated by nothing. Associated signs and symptoms: Pertinent positives: GI bleeding. Severity of symptoms: At their worst the symptoms were moderate in the emergency department the symptoms are unchanged. The patient has experienced similar episodes in the past, a few times. The patient has not recently seen a physician. Patient stated that she has been to multiple ER in past for similar instances. Has not had it in some time but started again tonight . Historical: - Allergies: 22:24 Bactrim; mt2 22:24 mycins; mt2 22:24 PENICILLINS; mt2 22:24 Sulfa (Sulfonamide Antibiotics); mt2 - PMHx: 22:26 Anxiety; mt2 - Immunization history:: Adult Immunizations up to date. - Social history:: Smoking status: Patient denies any tobacco usage or history of. Patient/guardian denies using alcohol, street drugs. ROS: 22:50 Eyes: Negative for injury, pain, redness, and discharge, ENT: Negative for injury, jr8 pain, and discharge, Neck: Negative for injury, pain, and swelling, Cardiovascular: Negative for chest pain, palpitations, and edema, Respiratory: Negative for shortness of breath, cough, wheezing, and pleuritic chest pain, Back: Negative for injury and pain, MS/Extremity: Negative for injury and deformity, Skin: Negative for injury, rash, and discoloration, Neuro: Negative for headache, weakness, numbness, tingling, and seizure. 22:50 Abdomen/GI: Positive for abdominal pain, nausea and vomiting, hematemesis. Exam: 22:50 Eyes: Pupils equal round and reactive to light, extra-ocular motions intact. Lids and jr8 lashes normal. Conjunctiva and sclera are non-icteric and not injected. Cornea within normal limits. Periorbital areas with no swelling, redness, or edema. ENT: Nares patent. No nasal discharge, no septal abnormalities noted. Tympanic membranes are normal and external auditory canals are clear. Oropharynx with no redness, swelling, or masses, exudates, or evidence of obstruction, uvula midline. Mucous membranes moist. Neck: Trachea midline, no thyromegaly or masses palpated, and no cervical lymphadenopathy. Supple, full range of motion without nuchal rigidity, or vertebral point tenderness. No Meningismus. Cardiovascular: Regular rate and rhythm with a normal S1 and S2. No gallops, murmurs, or rubs. Normal PMI, no JVD. No pulse deficits. Respiratory: Lungs have equal breath sounds bilaterally, clear to auscultation and percussion. No rales, rhonchi or wheezes noted. No increased work of breathing, no retractions or nasal flaring. Back: No spinal tenderness. No costovertebral tenderness. Full range of motion. MS/ Extremity: Pulses equal, no cyanosis. Neurovascular intact. Full, normal range of motion. Neuro: Awake and alert, GCS 15, oriented to person, place, time, and situation. Cranial nerves II-XII grossly intact. Motor strength 5/5 in all extremities. Sensory grossly intact. Cerebellar exam normal. Normal gait. 22:50 Abdomen/GI: Inspection: obese Bowel sounds: active, all quadrants, Palpation: soft, in all quadrants, mild abdominal tenderness, in the epigastric area, mass, is not appreciated, rebound tenderness, is not appreciated, voluntary guarding, is not appreciated, involuntary guarding, is not appreciated, no appreciated organomegaly, Indicators: McBurney's point is not tender, Montes's sign is negative, Rovsing's sign is negative, Obturator sign is negative, Liver: tenderness, is not appreciated. 22:50 Skin: Appearance: Color: pale. Vital Signs: 22:05 BP 119 / 81; Pulse 84; Resp 17; Temp 98.3; Pulse Ox 94% ; Weight 150.14 kg; Height 5 mt2 ft. 5 in. (165.10 cm); Pain 9/10; 22:27 BP 140 / 100; Pulse 81; Resp 16; Temp 98.6; Pulse Ox 94% ; Pain 9/10; mt2 22:05 Body Mass Index 55.08 (150.14 kg, 165.10 cm) mt2 MDM: 22:16 Patient medically screened. jr8 22:50 Data reviewed: vital signs, nurses notes. ED course: Nurse came to me saying that jr8 patient left after being seen. Unknown why. Could not find her outside or in other rooms. Administered Medications: No medications were administered Disposition: 23:42 Co-signature as Attending Physician, Junito Sutton MD. rn Disposition: 12/26/19 22:56 Patient left the facility after being seen by provider. - Patient left due to unknown. Signatures: Dispatcher [employer] EDMS Junito Sutton MD MD rn Cornell Moore PA PA jr8 Luis Ferro, Evelyn Tinsley RN, RN RN mt2 Corrections: (The following items were deleted from the chart) 22:57 22:56 12/26/2019 22:56 Patient left the facility after being seen by provider. Reason rv stated they are leaving due to unknown. jr8
[2019-12-26 23:12] VITALS: O2SAT 94
[2019-12-26 23:14] VITALS: BP 140/100; TEMP 98.6
== END 2019-12-26 22:57 | disposition left against medical advice (07) ==
LOC: ER 22:05
DX: K92.0 Hematemesis (principal); R10.9 Unspecified abdominal pain; Z88.0 Allergy status to penicillin; Z88.1 Allergy status to other antibiotic agents; Z88.2 Allergy status to sulfonamides; Z88.3 Allergy status to other anti-infective agents
CPT/HCPCS: 99283

== ENCOUNTER 2020-02-23 00:14 | Emergency (ER) | payer SELFPAY ==
--- OUTSIDE RECORDS SUMMARY | 2020-02-23 00:16 | XMS REPORT | Continuity of Care Document ---
:1985 Author Organization [facility] t Address [address] [place] [address] Dr. Marshall [address] [place] [id number] Care Team Providers Name Role Phone Unavailable Unavailable Unavailable Problems This patient has no known problems. Allergies, Adverse Reactions, Alerts This patient has no known allergies or adverse reactions. Medications This patient has no known medications. Procedures This patient has no known procedures. Results This patient has no known results.
[2020-02-23 00:48] LABS: Absolute Lymphocytes (CBC) 1.3 K/uL (0.7-4.9); Basophils % 1.2 % (0-1.3); Hematocrit 32.7 % (36.0-45.0); Lymphocytes % 14.6 % (15.3-44.8); RBC Red Blood Cell Count 3.66 M/uL (3.86-4.86)
[2020-02-23] MEDS ORDERED: MAGNE/ALUM HYDROXD 30 ML UCUP ONE (00:55)
[2020-02-23] MEDS ORDERED: PROMETHAZINE INJ 25 MG/ML AMP ONE (00:56)
[2020-02-23] MEDS ORDERED: LIDOCAINE VISCOUS 2% SOLN 15 ML UDC ONE (00:56)
[2020-02-23] MEDS ORDERED: MEPERIDINE HCL 50 MG/ML ONE (00:56)
[2020-02-23 01:04] LABS: Bilirubin Direct 0.2 mg/dL (0-0.2); Bilirubin Total 0.4 mg/dL (0.2-1.0); Potassium 3.5 mmol/L (3.5-5.1); Protein, Total 7.6 g/dL (6.4-8.2)
[2020-02-23 01:17] LABS: Urine Bacteria <20 /HPF (<20); Urine Culture Reflex Order NOT NEEDED; Urine RBC <5 /HPF (NONE SEEN)
[2020-02-23] MEDS ORDERED: METRONIDAZOLE 500mg IVPB 500 MG/100 ML BAG IV ONE (02:07)
[2020-02-23] MEDS ORDERED: CIPROFLOXACIN 400mg IV 400 MG/200 ML BAG IV ONE (02:07)
--- NOTE | 2020-02-23 02:39 | ER ---
Nurse's Notes [facility] Name: Rachael Knox Age: 34 yrs Sex: Female : 1985 Arrival Date: 02/23/2020 Time: 00:16 Bed 8 Private MD: Diagnosis: Infectious colitis Presentation: 02/22 00:26 Chief complaint: Patient states: epigastric pain and RUQ pain that started 2 days ago. wh Also C/O nausea and diarrhea. Coronavirus screen: Client denies travel out of the [place] in the last 14 days. diarrhea, nausea. Ebola Screen: Patient negative for fever greater than or equal to 101.5 degrees Fahrenheit, and additional compatible Ebola Virus Disease symptoms Patient denies exposure to infectious person. Initial Sepsis Screen: Does the patient meet any 2 criteria? No. Patient's initial sepsis screen is negative. Does the patient have a suspected source of infection? Yes: Acute abdominal pain. Risk Assessment: Do you want to hurt yourself or someone else? Patient reports no desire to harm self or others. Onset of symptoms was February 23, 2020. 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 - Social history:: Smoking status: Patient/guardian denies using. - Family history:: not pertinent. - Hospitalizations: : No recent hospitalization is reported. Screenin:30 Abuse screen: Denies threats or abuse. Denies injuries from another. Nutritional screening: No deficits noted. Tuberculosis screening: No symptoms or risk factors identified. Fall Risk None identified. Assessment: 00:28 General: Appears in no apparent distress. uncomfortable, Behavior is calm, cooperative, wh appropriate for age. Pain: Complains of pain in epigastric area and right upper quadrant Pain does not radiate. Pain currently is 8 out of 10 on a pain scale. Quality of pain is described as crampy, Pain began 2-3 days ago. Neuro: Level of Consciousness is awake, alert, obeys commands, Oriented to person, place, time, situation, Appropriate for age. Cardiovascular: Heart tones S1 S2. Respiratory: Airway is patent Respiratory effort is even, unlabored, Respiratory pattern is regular, symmetrical, Breath sounds are clear bilaterally. GI: Abdomen is round non-distended, Bowel sounds present X 4 quads. Abd is soft Abdomen is tender to palpation in epigastric area and right upper quadrant Reports diarrhea, nausea. : No signs and/or symptoms were reported regarding the genitourinary system. EENT: No signs and/or symptoms were reported regarding the EENT system. Derm: Skin is intact, is healthy with good turgor, Skin is pink, warm \T\ dry. normal. Musculoskeletal: Circulation, motion, and sensation intact. 01:45 Reassessment: Patient appears in no apparent distress at this time. No changes from previously documented assessment. Patient and/or family updated on plan of care and expected duration. Pain level reassessed. Patient is alert, oriented x 3, equal unlabored respirations, skin warm/dry/pink. 02:51 Reassessment: patient for dc after completing cipro IV. mg2 Vital Signs: 00:26 BP 149 / 95; Pulse 84; Resp 18; Temp 98.3; Pulse Ox 97% ; Weight 149.69 kg; Height 5 wh ft. 5 in. (165.10 cm); Pain 8/10; 02:47 BP 111 / 59; Pulse 80; Resp 18; Pulse Ox 92% on R/A; mg2 00:26 Body Mass Index 54.91 (149.69 kg, 165.10 cm) 02:47 patient sleeping mg2 ED Course: 00:16 Patient arrived in ED. cl3 00:17 Junito Sutton MD is Attending Physician. rn 00:24 Tuan Lamb is Primary Nurse. 00:27 Triage completed. wh 00:30 Arm band placed on right wrist. wh 00:30 Patient has correct armband on for positive identification. Bed in low position. Call light in reach. Side rails up X 1. Pulse ox on. NIBP on. 00:52 Inserted saline lock: 20 gauge in right antecubital area, using aseptic technique. mg2 Blood collected. by VITA Dickerson. 01:25 CT Abd/Pelvis - IV Contrast Only In Process Unspecified. EDMS 02:38 Daniel Pacheco MD is Referral Physician. rn 02:45 No provider procedures requiring assistance completed. mg2 03:14 IV discontinued, intact, bleeding controlled, No redness/swelling at site. Pressure mg2 dressing applied. Administered Medications: 00:51 Drug: GI Cocktail without - (Maalox Suspension 30 ml, Lidocaine Liquid 2 % 15 wh ml) Route: PO; 01:54 Follow up: Response: No adverse reaction 00:53 Drug: Demerol 25 mg {Note: RASS 0.} Route: IVP; Site: right antecubital; 01:54 Follow up: Response: No adverse reaction; Pain is decreased; RASS: Alert and Calm (0) 00:55 Drug: Phenergan 12.5 mg Route: IVP; Site: right antecubital; 01:58 Drug: Flagyl 500 mg Volume: 100 ml; Route: IVPB; Rate: 200 ml/hr; Infused Over: 30 mg2 mins; Site: right antecubital; 02:44 Follow up: Response: No adverse reaction; IV Status: Completed infusion; IV Intake: mg2 100ml 02:10 Drug: Cipro 400 mg Volume: 200 ml; Route: IVPB; Infused Over: 60 mins; Site: right mg2 antecubital; 03:14 Follow up: Response: No adverse reaction; IV Status: Completed infusion; IV Intake: mg2 200ml Intake: 02:44 IV: 100ml; Total: 100ml. mg2 03:14 IV: 200ml; Total: 300ml. mg2 Outcome: 02:38 Discharge ordered by . rn 03:14 Discharged to home ambulatory. mg2 03:14 Condition: stable 03:14 Discharge instructions given to patient, Instructed on discharge instructions, follow up and referral plans. medication usage, Demonstrated understanding of instructions, follow-up care, medications, Prescriptions given X 4. 03:14 Patient left the ED. mg2 Signatures: Dispatcher [employer] EDMS Junito Sutton MD MD rn Habalo, Winsy Ciaran Leigh RN RN mg2 Clayton Campbell cl3
--- NOTE | 2020-02-23 02:39 | EDPHYS ---
Physician Documentation [facility] Name: Rachael Knox Age: 34 yrs Sex: Female : 1985 Arrival Date: 02/23/2020 Time: 00:16 Bed 8 Private MD: ED Physician Junito Sutton HPI: 02/22 00:24 This 34 yrs old Female presents to ER via Unassigned with complaints of rn Abdominal Pain. 00:24 The patient presents with abdominal pain in the epigastric area. Onset: The rn symptoms/episode began/occurred 2 day(s) ago. The symptoms do not radiate. Associated signs and symptoms: Pertinent positives: diarrhea, nausea, Pertinent negatives: blood in stools, chest pain, fever, shortness of breath, vaginal discharge. The symptoms are described as crampy, intermittent. Modifying factors: The symptoms are alleviated by nothing, the symptoms are aggravated by touching the area. Severity of pain: At its worst the pain was moderate in the emergency department the pain is unchanged. The patient has not experienced similar symptoms in the past. The patient has not recently seen a physician. Reports 2 days of upper abd pain, assoc with nausea and diarrhea. No fever. No urinary symptoms. No sob/cough. No change in taste/smell. Reports comes in waves. No blood in stool. . 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 - Social history:: Smoking status: Patient/guardian denies using. - Family history:: not pertinent. - Hospitalizations: : No recent hospitalization is reported. ROS: 00:24 Constitutional: Negative for fever, chills, and weight loss, Eyes: Negative for injury, rn pain, redness, and discharge, Cardiovascular: Negative for chest pain, palpitations, and edema, Respiratory: Negative for shortness of breath, cough, wheezing, and pleuritic chest pain, Abdomen/GI: + abd pain/nausea/diarrhea Back: Negative for injury and pain, : Negative for injury, bleeding, discharge, and swelling, MS/Extremity: Negative for injury and deformity, Skin: Negative for injury, rash, and discoloration, Neuro: Negative for headache, weakness, numbness, tingling, and seizure. Exam: 00:24 Constitutional: Overweight female, ambulatory to room without difficulty Head/Face: rn Normocephalic, atraumatic. Cardiovascular: Regular rate and rhythm. No pulse deficits. Respiratory: No increased work of breathing, no retractions or nasal flaring. Abdomen/GI: soft, mild epigastric/RUQ/LUQ tenderness, no masses Skin: Warm, dry MS/ Extremity: Pulses equal, no cyanosis. Neurovascular intact. Full, normal range of motion. Equal circumference. Neuro: Awake and alert, GCS 15 Vital Signs: 00:26 BP 149 / 95; Pulse 84; Resp 18; Temp 98.3; Pulse Ox 97% ; Weight 149.69 kg; Height 5 wh ft. 5 in. (165.10 cm); Pain 8/10; 02:47 BP 111 / 59; Pulse 80; Resp 18; Pulse Ox 92% on R/A; mg2 00:26 Body Mass Index 54.91 (149.69 kg, 165.10 cm) wh 02:47 patient sleeping mg2 MDM: 00:17 Patient medically screened. rn 02:37 Differential diagnosis: cholecystitis, Cholelithiasis, gastritis, gastroesophageal rn reflux disease, non-specific abd pain, Peptic Ulcer Disease, colitis. Data reviewed: vital signs, nurses notes, lab test result(s), radiologic studies, CT scan, and as a result, I will discharge patient. Counseling: I had a detailed discussion with the patient and/or guardian regarding: the historical points, exam findings, and any diagnostic results supporting the discharge/admit diagnosis, lab results, radiology results, the need for outpatient follow up, to return to the emergency department if symptoms worsen or persist or if there are any questions or concerns that arise at home. Response to treatment: the patient's symptoms have markedly improved after treatment, and as a result, I will discharge patient. Special discussion: Based on the patient's Hx, exam, and Dx evaluation, there is no indication for emergent surgery or inpatient Tx. It is understood by the patient/guardian that if the Sx's persist or worsen they need to return immediately for re-evaluation. I discussed with the patient/guardian in detail that at this point there is no indication for admission to the hospital. It is understood, however, that if the symptoms persist or worsen the patient needs to return immediately for re-evaluation. 02/22 00:23 Order name: Basic Metabolic Panel; Complete Time: 01:48 rn 02/22 00:23 Order name: CBC with Diff; Complete Time: 01:48 rn 02/22 00:23 Order name: Hepatic Function; Complete Time: 01:48 rn 02/22 00:23 Order name: Lipase; Complete Time: 01:48 rn 02/22 00:23 Order name: Urine Microscopic Only; Complete Time: 01:48 rn 02/22 00:42 Order name: Urine --Ancillary (enter results) tt3 02/22 00:23 Order name: CT Abd/Pelvis - IV Contrast Only rn 02/22 00:42 Order name: Urine Dipstick--Ancillary (enter results) tt3 02/22 01:07 Order name: CREATININE WHOLE BLOOD; Complete Time: 01:48 EDMS 02/22 00:23 Order name: IV Saline Lock; Complete Time: 00:44 rn 02/22 00:23 Order name: Labs collected and sent; Complete Time: 00:44 rn 02/22 00:23 Order name: Urine Test (obtain specimen); Complete Time: 00:44 rn 02/22 00:23 Order name: Urine Dipstick-Ancillary (obtain specimen); Complete Time: 00:44 rn Administered Medications: 00:51 Drug: GI Cocktail without - (Maalox Suspension 30 ml, Lidocaine Liquid 2 % 15 wh ml) Route: PO; 01:54 Follow up: Response: No adverse reaction wh 00:53 Drug: Demerol 25 mg {Note: RASS 0.} Route: IVP; Site: right antecubital; 01:54 Follow up: Response: No adverse reaction; Pain is decreased; RASS: Alert and Calm (0) wh 00:55 Drug: Phenergan 12.5 mg Route: IVP; Site: right antecubital; 01:58 Drug: Flagyl 500 mg Volume: 100 ml; Route: IVPB; Rate: 200 ml/hr; Infused Over: 30 mg2 mins; Site: right antecubital; 02:44 Follow up: Response: No adverse reaction; IV Status: Completed infusion; IV Intake: mg2 100ml 02:10 Drug: Cipro 400 mg Volume: 200 ml; Route: IVPB; Infused Over: 60 mins; Site: right mg2 antecubital; 03:14 Follow up: Response: No adverse reaction; IV Status: Completed infusion; IV Intake: mg2 200ml Disposition: 02/23/20 02:38 Discharged to Home. Impression: Infectious colitis. - Condition is Stable. - Discharge Instructions: Colitis. - Prescriptions for Zofran ODT 4 mg Oral tablet,disintegrating - place 1 tablet by TRANSLINGUAL route every 8 hours As needed; 20 tablet. Flagyl 500 mg Oral Tablet - take 1 tablet by ORAL route every 8 hours for 10 days; 30 tablet. Tylenol- Codeine #3 300-30 mg Oral Tablet - take 1 tablet by ORAL route every 6 hours As needed; 15 tablet. Cipro 500 mg Oral Tablet - take 1 tablet by ORAL route every 12 hours for 10 days; 20 tablet. - Medication Reconciliation Form, Thank You Letter, Antibiotic Education, Prescription Opioid Use form. - Follow up: Daniel Pacheco; When: As needed; Reason: Recheck today's complaints, Re-evaluation by your physician. - Problem is new. - Symptoms have improved. Signatures: Dispatcher [employer] EDMS Junito Sutton MD MD rn Habalo, Winsy wh Gardose, Michele, RN RN mg2 Corrections: (The following items were deleted from the chart) 03:14 02:38 02/23/2020 02:38 Discharged to Home. Impression: Infectious colitis. Condition is mg2 Stable. Discharge Instructions: Colitis. Prescriptions for Zofran ODT 4 mg Oral tablet,disintegrating - place 1 tablet by TRANSLINGUAL route every 8 hours As needed; 20 tablet, Flagyl 500 mg Oral Tablet - take 1 tablet by ORAL route every 8 hours for 10 days; 30 tablet, Tylenol-Codeine #3 300-30 mg Oral Tablet - take 1 tablet by ORAL route every 6 hours As needed; 15 tablet, Cipro 500 mg Oral Tablet - take 1 tablet by ORAL route every 12 hours for 10 days; 20 tablet. and Forms are Medication Reconciliation Form, Thank You Letter, Antibiotic Education, Prescription Opioid Use. Follow up: Daniel Pacheco; When: As needed; Reason: Recheck today's complaints, Re-evaluation by your physician. Problem is new. Symptoms have improved. rn
[2020-02-23 03:10] LABS: Urine Blood TRACE (NEG); Urine Glucose NEGATIVE (NEG); Urine Protein TRACE (NEG); Urine Specific Gravity 1.025 (1.005-1.030)
[2020-02-23 03:28] VITALS: TEMP 98.3
[2020-02-23 03:34] VITALS: BP 111/59; O2SAT 92
--- NOTE | 2020-02-23 22:21 | RAD REPORT ---
EXAM DESCRIPTION: CT - Abdomen Pelvis W Contrast - 02/23/2020 6:35 am CLINICAL HISTORY: Upper abd pain, vomiting/diarrhea COMPARISON: None. TECHNIQUE: CT ABDOMEN PELVIS WITH IV CONTRAST on 02/23/2020 12:23 AM CDT This exam was performed according to our departmental dose-optimization program, which includes autom ated exposure control, adjustment of the mA and/or kV according to patient size and/or use of iterati ve reconstruction technique. FINDINGS: The heart is enlarged and fatty in attenuation. Abdomen: The liver is normal in appearance. There is no biliary dilatation. Gallbladder is normal in appearance. The pancreas and spleen are normal in appearance. The adrenal glands and kidneys are unre markable. Abdominal aorta is normal in course and caliber without aneurysm. There is no free air. There is no r etroperitoneal adenopathy. Pelvis: There is moderate thickening of the ascending colon. Urinary bladder is unremarkable. There i s no free fluid. Uterus is normal in size. Appendix is normal. Skeleton: There are no acute osseous findings. No suspicious bony lesions. IMPRESSION: Proximal infectious or inflammatory colitis. Electronically signed by: Guillermo Ross MD 02/23/2020 1:37 AM CDT Due to temporary technical issues with the PACS/Fluency reporting system, reports are being signed by the in house radiologist without review as a courtesy to ensure prompt reporting. The interpreting r adiologist is fully responsible for the content of the report.
== END 2020-02-23 03:14 | disposition home or self-care (01) ==
LOC: ER 00:14
DX: A09 Infectious gastroenteritis and colitis, unspecified (principal); I10 Essential (primary) hypertension; Z88.0 Allergy status to penicillin; Z88.1 Allergy status to other antibiotic agents; Z88.2 Allergy status to sulfonamides
CPT/HCPCS: 36415; 74177; 80048; 80076; 81003; 81015; 81025; 82565; 83690; 85025; 96365; 96375; 99284; J0744; J2175; J2550; Q9967

== ENCOUNTER 2020-02-25 18:43 | Emergency (ER) | payer SELFPAY ==
[2020-02-25] MEDS ORDERED: HYDROCODONE/APAP 10/325 TAB ONE (20:54)
--- NOTE | 2020-02-25 21:36 | EDPHYS ---
Physician Documentation [facility] Name: Rachael Knox Age: 35 yrs Sex: Female : 1985 Arrival Date: 02/25/2020 Time: 18:44 Bed 23 Private MD: ED Physician Jaylan Ortiz HPI: 02/24 20:49 This 35 yrs old Female presents to ER via Wheelchair with complaints of Knee pm1 Pain. 20:49 The patient presents with pain. The complaints affect the left knee. Context: The pm1 problem was sustained at home, resulted from twisting of the extremity, the patient can partially bear weight, the patient is able to ambulate, with moderate difficulty, Problem is a result from a previous injury: Yes. Same type of injury 3-4 months ago. did not follow up with orthopedics. Onset: The symptoms/episode began/occurred today. Modifying factors: The symptoms are alleviated by remaining still, the symptoms are aggravated by movement, weight bearing, bending knee. Associated signs and symptoms: The patient has no apparent associated signs or symptoms. Severity of symptoms: in the emergency department the symptoms are unchanged. The patient has experienced a previous episode, approximately 4 months ago. The patient has not recently seen a physician, and does not have an established primary care provider. 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 - Social history:: Smoking status: Patient denies any tobacco usage or history of. ROS: 20:49 Constitutional: Negative for fever, chills, and weight loss, Cardiovascular: Negative pm1 for chest pain, palpitations, and edema, Respiratory: Negative for shortness of breath, cough, wheezing, and pleuritic chest pain. 20:49 Skin: Negative for injury, rash, and discoloration, Neuro: Negative for headache, weakness, numbness, tingling, and seizure. 20:49 MS/extremity: Positive for pain, of the left knee, Negative for deformity. Exam: 20:49 Constitutional: This is a well developed, well nourished patient who is awake, alert, pm1 and in no acute distress. Head/Face: Normocephalic, atraumatic. Neck: Trachea midline, no thyromegaly or masses palpated, and no cervical lymphadenopathy. Supple, full range of motion without nuchal rigidity, or vertebral point tenderness. No Meningismus. 20:49 Musculoskeletal/extremity: Extremities: grossly normal except: noted in the left knee: tenderness, pain with valgus stress test , There is no evidence of decreased ROM, deformity, Sensation intact. Vital Signs: 19:21 BP 135 / 72; Pulse 75; Resp 18 S; Temp 97.1(TE); Pulse Ox 95% on R/A; Weight 152.86 kg ca1 (R); Height 5 ft. 5 in. (165.10 cm) (R); Pain 8/10; 19:21 Body Mass Index 56.08 (152.86 kg, 165.10 cm) ca1 MDM: 20:10 Patient medically screened. pm1 21:34 Data reviewed: vital signs. Data interpreted: Pulse oximetry: on room air is 95 %. pm1 Interpretation: normal. Counseling: I had a detailed discussion with the patient and/or guardian regarding: the historical points, exam findings, and any diagnostic results supporting the discharge/admit diagnosis, radiology results, the need for outpatient follow up, for definitive care, a orthopedic surgeon, to return to the emergency department if symptoms worsen or persist or if there are any questions or concerns that arise at home. 02/24 19:25 Order name: Knee Left 3 View XRAY ca1 02/24 21:37 Order name: Knee Immobilizer; Complete Time: 21:54 pm1 02/24 21:37 Order name: Crutches; Complete Time: 21:54 pm1 Administered Medications: 20:38 Not Given (Physician Discretion): [place] 5 mg-325 mg 1 tabs PO once; RASS on ADMIN: pm1 Combtv4, Very Agttd3, Agttd2, Rstlss1, AlertClm0, Drwsy-1, Lt Sdtn-2, Mod Sdtn-3, Dp Sdtn-4, UnArsble-5 20:43 Drug: [place] 10 mg-325 mg 1 tabs Route: PO; lp1 21:53 Follow up: Response: Pain is decreased lp1 Disposition: 02/25 05:26 Co-signature as Attending Physician, Jaylan Ortiz MD. 7 Disposition: 02/25/20 21:35 Discharged to Home. Impression: Unspecified internal derangement of left knee, Pain in left knee. - Condition is Stable. - Discharge Instructions: Crutch Use, Knee Immobilizer, Knee Pain. - Prescriptions for Tramadol 50 mg Oral Tablet - take 1 tablet by ORAL route every 8 hours as needed; 12 tablet. - Medication Reconciliation Form, Thank You Letter, Antibiotic Education, Prescription Opioid Use form. - Follow up: Emergency Department; When: As needed; Reason: Worsening of condition. Follow up: Private Physician; When: 2 - 3 days; Reason: Recheck today's complaints, Continuance of care, Re-evaluation by your physician. - Problem is new. - Symptoms have improved. Signatures: Dispatcher [employer] EDMS Omayra Hall RN RN 1 Andrés Gilmore NP [employer] FAB[employer]ICATING INSPECTOR pm1 Maria Ramsay RN RN [facility] Jaylan Ortiz MD MD 7 Corrections: (The following items were deleted from the chart) 02/24 21:41 21:35 02/25/2020 21:35 Discharged to Home. Impression: Pain in left knee. Condition is pm1 Stable. Forms are Medication Reconciliation Form, Thank You Letter, Antibiotic Education, Prescription Opioid Use. Follow up: Emergency Department; When: As needed; Reason: Worsening of condition. Follow up: Private Physician; When: 2 - 3 days; Reason: Recheck today's complaints, Continuance of care, Re-evaluation by your physician. Problem is new. Symptoms have improved. pm1 21:52 21:41 02/25/2020 21:35 Discharged to Home. Impression: Unspecified internal derangement lp1 of left kneePain in left knee. Condition is Stable. Discharge Instructions: Knee Immobilizer, Knee Pain, Crutch Use. Prescriptions for Tramadol 50 mg Oral Tablet - take 1 tablet by ORAL route every 8 hours as needed; 12 tablet. and Forms are Medication Reconciliation Form, Thank You Letter, Antibiotic Education, Prescription Opioid Use. Follow up: Emergency Department; When: As needed; Reason: Worsening of condition. Follow up: Private Physician; When: 2 - 3 days; Reason: Recheck today's complaints, Continuance of care, Re-evaluation by your physician. Problem is new. Symptoms have improved. pm1
--- NOTE | 2020-02-25 21:36 | ER ---
Nurse's Notes [facility] Name: Rachael Knox Age: 35 yrs Sex: Female : 1985 Arrival Date: 02/25/2020 Time: 18:44 Bed 23 Private MD: Diagnosis: Pain in left knee;Unspecified internal derangement of left knee Presentation: 02/24 19:18 Chief complaint: Patient states: Had L knee injury at the beginning of summer, never ca1 went to see an orthopedic doctor. Today, I went to turn around and my L knee gave out and I fell on my back. Right now, I can't apply pressure on it and I feel like it's not in the right place. I also hit my head on the stove. Denies LOC. Denies taking any blood thinners. 19:18 Method Of Arrival: Wheelchair ca1 19:21 Coronavirus screen: Client denies travel out of the [place] in the last 14 days. At this ca1 time, the client does not indicate any symptoms associated with coronavirus-19. The client denies any previous COVID testing. Ebola Screen: Patient negative for fever greater than or equal to 101.5 degrees Fahrenheit, and additional compatible Ebola Virus Disease symptoms Patient denies exposure to infectious person. Patient denies travel to an Ebola-affected area in the 21 days before illness onset. No symptoms or risks identified at this time. Initial Sepsis Screen: Does the patient meet any 2 criteria? No. Patient's initial sepsis screen is negative. Does the patient have a suspected source of infection? No. Patient's initial sepsis screen is negative. Risk Assessment: Do you want to hurt yourself or someone else? Patient reports no desire to harm self or others. Onset of symptoms was February 25, 2020. 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 - Social history:: Smoking status: Patient denies any tobacco usage or history of. Screenin:32 Abuse screen: Denies threats or abuse. Denies injuries from another. Nutritional lp1 screening: No deficits noted. Tuberculosis screening: No symptoms or risk factors identified. Fall Risk None identified. Assessment: 20:31 General: Appears uncomfortable, Behavior is appropriate for age. Pain: Complains of lp1 pain in left knee Pain currently is 10 out of 10 on a pain scale. Quality of pain is described as sharp, Aggravated by weight bearing. Neuro: No deficits noted. Cardiovascular: No deficits noted. Respiratory: No deficits noted. GI: Abdomen is obese. : No signs and/or symptoms were reported regarding the genitourinary system. EENT: No signs and/or symptoms were reported regarding the EENT system. Derm: Skin is pink, warm \T\ dry. Musculoskeletal: Range of motion: limited in left knee Reports pain in left knee since this morning. Vital Signs: 19:21 BP 135 / 72; Pulse 75; Resp 18 S; Temp 97.1(TE); Pulse Ox 95% on R/A; Weight 152.86 kg ca1 (R); Height 5 ft. 5 in. (165.10 cm) (R); Pain 8/10; 19:21 Body Mass Index 56.08 (152.86 kg, 165.10 cm) ca1 ED Course: 18:44 Patient arrived in ED. ag5 19:23 Triage completed. ca1 19:24 Arm band placed on right wrist. ca1 20:06 Andrés Gilmore NP is PHCP. pm1 20:06 Jaylan Ortiz MD is Attending Physician. pm1 20:31 Omayra Hall, VITA is Primary Nurse. lp1 20:32 Patient has correct armband on for positive identification. lp1 20:32 Patient did not have IV access during this emergency room visit. lp1 21:26 Knee Left 3 View XRAY In Process Unspecified. EDMS 21:45 No provider procedures requiring assistance completed. lp1 Administered Medications: 20:38 Not Given (Physician Discretion): [place] 5 mg-325 mg 1 tabs PO once; RASS on ADMIN: pm1 Combtv4, Very Agttd3, Agttd2, Rstlss1, AlertClm0, Drwsy-1, Lt Sdtn-2, Mod Sdtn-3, Dp Sdtn-4, UnArsble-5 20:43 Drug: [place] 10 mg-325 mg 1 tabs Route: PO; lp1 21:53 Follow up: Response: Pain is decreased lp1 Outcome: 21:35 Discharge ordered by MD. pm1 21:45 Discharged to home via wheelchair, with crutches, with family. lp1 21:45 Condition: good 21:45 Discharge instructions given to patient, Instructed on discharge instructions, follow up and referral plans. medication usage, crutch walking, Demonstrated understanding of instructions, follow-up care, medications, crutch walking, Prescriptions given X 1. 21:52 Patient left the ED. lp1 Signatures: Dispatcher [employer] EDOmayra Ayoub RN RN lp1 Andrés Gilmore, [employer] pm1 Maria Ramsay RN RN ca1 Lindsey Pratt ag5
--- NOTE | 2020-02-25 21:58 | RAD REPORT ---
EXAM DESCRIPTION: RAD - Knee Left 3 View - 02/25/2020 9:25 pm CLINICAL HISTORY: fall Fall, pain COMPARISON: Knee Left 3 View dated 11/20/2019 FINDINGS: No acute fracture or dislocation seen. Mild soft tissue swelling is seen anteriorly. Small rounded radiopaque foreign body suspected in the medial soft tissues of the distal thigh.
[2020-02-25 22:10] VITALS: BP 135/72; TEMP 97.1; O2SAT 95
--- OUTSIDE RECORDS SUMMARY | 2020-02-29 23:33 | XMS REPORT | Continuity of Care Document ---
:1985 Author Organization [facility] t Address [address] [place] [address] Dr. Marshall [address] [place] [id number] Care Team Providers Name Role Phone Unavailable Unavailable Unavailable Problems This patient has no known problems. Allergies, Adverse Reactions, Alerts This patient has no known allergies or adverse reactions. Medications This patient has no known medications. Procedures This patient has no known procedures. Results This patient has no known results.
== END 2020-02-25 21:52 | disposition home or self-care (01) ==
LOC: ER 18:43
DX: M23.92 Unspecified internal derangement of left knee (principal); I10 Essential (primary) hypertension; F31.9 Bipolar disorder, unspecified; Z88.0 Allergy status to penicillin; Z88.1 Allergy status to other antibiotic agents; Z88.2 Allergy status to sulfonamides
CPT/HCPCS: 99284

== ENCOUNTER 2020-04-06 05:03 | Inpatient (IN) | payer SELFPAY ==
--- OUTSIDE RECORDS SUMMARY | 2020-04-06 05:04 | XMS REPORT | Continuity of Care Document ---
:1985 Author Organization [facility] t Address [address] [place] [address] Dr. Marshall [address] [place] [id number] Care Team Providers Name Role Phone Unavailable Unavailable Unavailable Problems This patient has no known problems. Allergies, Adverse Reactions, Alerts This patient has no known allergies or adverse reactions. Medications This patient has no known medications. Procedures This patient has no known procedures. Results This patient has no known results.
[2020-04-06] MEDS ORDERED: IPRATROPIUM BROM 0.5MG/2.5ML ONE (05:41)
[2020-04-06] MEDS ORDERED: dexAMETHasone 10 MG/ML VIAL ONE (05:41)
[2020-04-06] MEDS ORDERED: NA CHLORIDE 0.9% 1,000 ML ONE (05:42)
[2020-04-06] MEDS ORDERED: ENOXAPARIN 100 MG/ML SYR SQ ONE (05:42)
[2020-04-06] MEDS ORDERED: FAMOTIDINE 20 MG/2 ML VIAL IV ONE (05:42)
[2020-04-06] MEDS ORDERED: LEVALBUTEROL 1.25 MG/3 ML NEB ONE ×2 (05:42→07:44)
[2020-04-06] MEDS ORDERED: ONDANSETRON 4 MG/2 ML VIAL ONE (06:12)
[2020-04-06] MEDS ORDERED: Levofloxacin 750mg IV 750 MG/150 ML BAG IV ONE (06:12)
[2020-04-06 06:33] LABS: Absolute Lymphocytes (CBC) 1.3 K/uL (0.7-4.9); Basophils % 1.3 % (0-1.3); Hematocrit 34.8 % (36.0-45.0); Lymphocytes % 22.2 % (15.3-44.8); MPV 10.5 fL (7.6-11.3); RBC Red Blood Cell Count 3.81 M/uL (3.86-4.86)
[2020-04-06 06:36] LABS: Protime INR 0.9
[2020-04-06 06:52] LABS: ALT/SGPT 198 U/L (12-78); Albumin 4.3 g/dL (3.4-5.0); Alkaline Phosphatase 106 U/L (45-117); BUN Blood Urea Nitrogen 12 mg/dL (7-18); Bicarbonate 29 mmol/L (21-32); Bilirubin Direct < 0.1 mg/dL (0-0.2); Bilirubin Total 0.4 mg/dL (0.2-1.0); Glucose Level 123 mg/dL (74-106); Magnesium 2.5 mg/dL (1.8-2.4); NT PRO-BNP 6 pg/mL (<125); Potassium 3.3 mmol/L (3.5-5.1); Protein, Total 7.7 g/dL (6.4-8.2); Sodium Level 142 mmol/L (136-145); Troponin (Emerg Dept Use Only) < 0.02 ng/mL (0.0-0.045)
[2020-04-06 06:56] LABS: AST/SGOT 565 U/L (15-37)
--- NOTE | 2020-04-06 07:16 | EDPHYS ---
Physician Documentation [facility] Name: Rachael Knox Age: 35 yrs Sex: Female : 1985 Arrival Date: 04/06/2020 Time: 05:03 Bed 7 Private MD: SIERRA Physician Kang Gifford HPI: 04/06 05:23 This 35 yrs old Female presents to ER via Ambulatory with complaints of ze Breathing Difficulty. 05:23 The patient has shortness of breath at rest, with light activity. Onset: The ze symptoms/episode began/occurred 1 day(s) ago. Duration: The symptoms are continuous, and are steadily getting worse. The patient's shortness of breath is aggravated by coughing, supine position, walking, is alleviated by elevating head, inhaler, nebulizer treatment, sitting up, application of supplemental oxygen. Associated signs and symptoms: Pertinent positives: non-productive cough. Severity of symptoms: At their worst the symptoms were moderate in the emergency department the symptoms are unchanged. The patient has experienced similar episodes in the past, a few times. 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 - Social history:: Smoking status: Patient denies any tobacco usage or history of. Patient/guardian denies using alcohol, street drugs. - Family history:: not pertinent. ROS: 05:23 Constitutional: Negative for fever, chills, and weight loss, Eyes: Negative for injury, ze pain, redness, and discharge, ENT: Negative for injury, pain, and discharge, Neck: Negative for injury, pain, and swelling, Cardiovascular: Negative for chest pain, palpitations, and edema, Abdomen/GI: Negative for abdominal pain, nausea, vomiting, diarrhea, and constipation, Back: Negative for injury and pain, : Negative for injury, bleeding, discharge, and swelling, MS/Extremity: Negative for injury and deformity, Skin: Negative for injury, rash, and discoloration, Neuro: Negative for headache, weakness, numbness, tingling, and seizure, Psych: Negative for depression, anxiety, suicide ideation, homicidal ideation, and hallucinations, Allergy/Immunology: Negative for hives, rash, and allergies, Endocrine: Negative for neck swelling, polydipsia, polyuria, polyphagia, and marked weight changes, Hematologic/Lymphatic: Negative for swollen nodes, abnormal bleeding, and unusual bruising. 05:23 Respiratory: Positive for cough, shortness of breath, at rest. Exam: 05:23 Constitutional: This is a well developed, well nourished patient who is awake, alert, ze and in no acute distress. Head/Face: Normocephalic, atraumatic. Eyes: Pupils equal round and reactive to light, extra-ocular motions intact. Lids and lashes normal. Conjunctiva and sclera are non-icteric and not injected. Cornea within normal limits. Periorbital areas with no swelling, redness, or edema. ENT: Nares patent. No nasal discharge, no septal abnormalities noted. Tympanic membranes are normal and external auditory canals are clear. Oropharynx with no redness, swelling, or masses, exudates, or evidence of obstruction, uvula midline. Mucous membranes moist. Neck: Trachea midline, no thyromegaly or masses palpated, and no cervical lymphadenopathy. Supple, full range of motion without nuchal rigidity, or vertebral point tenderness. No Meningismus. Chest/axilla: Normal chest wall appearance and motion. Nontender with no deformity. No lesions are appreciated. Cardiovascular: Regular rate and rhythm with a normal S1 and S2. No gallops, murmurs, or rubs. Normal PMI, no JVD. No pulse deficits. Abdomen/GI: Soft, non-tender, with normal bowel sounds. No distension or tympany. No guarding or rebound. No evidence of tenderness throughout. Back: No spinal tenderness. No costovertebral tenderness. Full range of motion. Female : Normal external genitalia. Skin: Warm, dry with normal turgor. Normal color with no rashes, no lesions, and no evidence of cellulitis. MS/ Extremity: Pulses equal, no cyanosis. Neurovascular intact. Full, normal range of motion. Neuro: Awake and alert, GCS 15, oriented to person, place, time, and situation. Cranial nerves II-XII grossly intact. Motor strength 5/5 in all extremities. Sensory grossly intact. Cerebellar exam normal. Normal gait. Psych: Awake, alert, with orientation to person, place and time. Behavior, mood, and affect are within normal limits. 05:23 Respiratory: the patient does not display signs of respiratory distress, Respirations: normal, no acute changes, Breath sounds: decreased breath sounds, that are mild, are located in both bases, rhonchi, that are mild, are scattered, stridor, is not appreciated, + upper airway congestion. wheezing: is not appreciated. 05:23 Musculoskeletal/extremity: DVT Exam: No signs of deep vein thrombosis. no pain, no swelling, no tenderness, negative Homans' sign noted on exam, no appreciated bluish discoloration, no erythema, no increased warmth. 06:03 ECG was reviewed by the Attending Physician. [facility] Vital Signs: 05:12 BP 143 / 89; Pulse 90; Resp 18 S; Temp 97.7(O); Pulse Ox 96% on R/A; Weight 151.95 kg bb (R); Height 5 ft. 5 in. (165.10 cm) (R); Pain 0/10; 06:17 BP 140 / 80; Pulse 85; Resp 19; Pulse Ox 100% on 15% Nebulizer Mask; rr5 08:02 BP 101 / 69; Pulse 77; Resp 18; Pulse Ox 95% on R/A; Pain 0/10; em 09:04 BP 106 / 68; Pulse 78; Resp 18; Pulse Ox 93% on R/A; em 10:19 BP 119 / 76; Pulse 65; Resp 18; Temp 98.0(O); Pulse Ox 95% on 3 lpm NC; mh5 05:12 Body Mass Index 55.75 (151.95 kg, 165.10 cm) bb MDM: 05:10 Patient medically screened. [facility] 05:27 Differential diagnosis: asthma, Bronchitis CHF exacerbation, Chronic Obstructive ze Pulmonary Disease pneumonia, pulmonary edema, reactive airway disease, Sepsis. Antibiotic administration: The patient's Wells Deep Vein Thrombosis Score was calculated as follows: Total Score: 0-2 Pts- Low Risk. The patient's pulmonary embolism risk score was calculated as follows: Total Score: 0-2 points. This patient was found to be at low risk for a pulmonary embolism by using the Well's assessment criteria. Immunization status:. Data reviewed: vital signs, nurses notes, lab test result(s), EKG, radiologic studies, CT scan, plain films. Data interpreted: library monitor: rate is 90 beats/min, rhythm is regular, Pulse oximetry: on room air is 96 %. Test interpretation: by ED physician or midlevel provider: ECG, plain radiologic studies. 04/06 05:22 Order name: Basic Metabolic Panel; Complete Time: 07:09 [facility] 04/06 05:22 Order name: CBC with Diff; Complete Time: 06:45 [facility] 04/06 05:22 Order name: LFT's; Complete Time: 07:09 [facility] 04/06 05:22 Order name: Magnesium; Complete Time: 07:09 [facility] 04/06 05:22 Order name: NT PRO-BNP; Complete Time: 07:09 [facility] 04/06 05:22 Order name: PT-INR; Complete Time: 06:45 [facility] 04/06 05:22 Order name: Troponin (emerg Dept Use Only); Complete Time: 07:09 [facility] 04/06 05:22 Order name: XRAY Chest (1 view) [facility] 04/06 05:22 Order name: Blood Culture Adult (2) [facility] 04/06 06:30 Order name: D-Dimer; Complete Time: 06:45 [facility] 04/06 07:09 Order name: Lipase [facility] 04/06 08:36 Order name: SARS-COV-2 RT PCR [facility] 04/06 05:22 Order name: EKG; Complete Time: 05:23 [facility] 04/06 05:22 Order name: Cardiac monitoring; Complete Time: 06:15 [facility] 04/06 05:22 Order name: EKG - Nurse/Tech; Complete Time: 06:15 [facility] 04/06 05:22 Order name: IV Saline Lock; Complete Time: 06:15 [facility] 04/06 05:22 Order name: Labs collected and sent; Complete Time: 06:15 [facility] 04/06 08:43 Order name: CT Chest For PE Angio [facility] 04/06 05:22 Order name: O2 Per Protocol; Complete Time: 06:15 [facility] 04/06 05:22 Order name: O2 Sat Monitoring; Complete Time: 06:15 ze EC:03 Rate is 80 beats/min. Rhythm is regular. QRS Dana is Normal. AK interval is normal. QRS ze interval is normal. QT interval is normal. No Q waves. T waves are Normal. No ST changes noted. Clinical impression: NSR w/ Non-specific ST/T Changes and No evidence of ischemia. Interpreted by me. Reviewed by me. Administered Medications: 05:55 Drug: Lovenox 100 mg Route: Sub-Q; Site: right lower abdomen; rr5 07:00 Follow up: Response: No adverse reaction rr5 06:00 Drug: NS 0.9% 500 ml Route: IV; Rate: bolus; Site: right antecubital; rr5 06:40 Follow up: Response: No adverse reaction; IV Status: Completed infusion; IV Intake: rr5 500ml 06:10 Drug: Zofran (Ondansetron) 4 mg Route: IVP; Site: right antecubital; rr5 07:12 Follow up: Response: No adverse reaction rr5 06:11 Drug: Decadron - Dexamethasone 10 mg Route: IVP; Site: right antecubital; rr5 07:13 Follow up: Response: No adverse reaction rr5 06:13 Drug: NS 0.9% 1000 ml Route: IV; Rate: 125 ml/hr; Site: right antecubital; rr5 12:21 Follow up: IV Status: Infusion continued upon admission em 06:13 Drug: levofloxacin 750 mg Volume: 150 ml; Route: IVPB; Infused Over: 90 mins; Site: rr5 right antecubital; 07:35 Follow up: Response: No adverse reaction; IV Status: Completed infusion; IV Intake: em 150ml 06:14 Drug: AtroVENT Aerosol 0.5 mg Route: Inhalation; rr5 07:13 Follow up: Response: No adverse reaction rr5 06:14 Drug: Pepcid 20 mg Route: IVP; Site: right antecubital; rr5 07:12 Follow up: Response: No adverse reaction rr5 06:15 Drug: Xopenex 3.75 mg Route: Inhalation; rr5 07:13 Follow up: Response: No adverse reaction rr5 07:34 Drug: Xopenex 2.5 mg Route: Inhalation; em 08:01 Follow up: Response: No adverse reaction; Marked relief of symptoms em Disposition: 04/06/20 07:15 Hospitalization ordered by Garo Sutton for Inpatient Admission. Preliminary diagnosis are Dyspnea, Asthma, Obesity, unspecified, Hypokalemia. - Bed requested for Telemetry/MedSurg (Inpatient). - Status is Inpatient Admission. em - Condition is Fair. - Problem is new. - Symptoms have improved. Signatures: Dispatcher [employer] [facility] Kang Gifford MD MD cha Munoz, Edgar RN RN em Sarah Herring RN RN Sanjuanita Andre Raymond, RN RN rr5 Corrections: (The following items were deleted from the chart) 06:30 05:29 D-DIMER+COAG.LAB.BRZ ordered. [facility] 07:16 07:15 Hospitalization Ordered by Olvin Oneill DO for Inpatient Admission. Preliminary ze diagnosis is Dyspnea; Asthma; Obesity, unspecified. Bed requested for Telemetry/MedSurg (Inpatient). Status is Inpatient Admission. Condition is Fair. Problem is new. Symptoms have improved. [facility] 07:28 07:16 04/06/2020 07:15 Hospitalization Ordered by Olvin Oneill DO for Inpatient ze Admission. Preliminary diagnosis is Dyspnea; Asthma; Obesity, unspecified; Hypokalemia. Bed requested for Telemetry/MedSurg (Inpatient). Status is Inpatient Admission. Condition is Fair. Problem is new. Symptoms have improved. [facility] 07:36 05:38 CORONAVIRUS+MR.LAB.BRZ ordered. [facility] 11:21 07:28 04/06/2020 07:15 Hospitalization Ordered by Garo Sutton MD for Inpatient eb Admission. Preliminary diagnosis is Dyspnea; Asthma; Obesity, unspecified; Hypokalemia. Bed requested for Telemetry/MedSurg (Inpatient). Status is Inpatient Admission. Condition is Fair. Problem is new. Symptoms have improved. [facility] 12:22 11:21 04/06/2020 07:15 Hospitalization Ordered by Garo Sutton MD for Inpatient em Admission. Preliminary diagnosis is Dyspnea; Asthma; Obesity, unspecified; Hypokalemia. Bed requested for Telemetry/MedSurg (Inpatient). Status is Inpatient Admission. Condition is Fair. Problem is new. Symptoms have improved. eb
--- NOTE | 2020-04-06 07:16 | ER ---
Nurse's Notes [facility] Name: Rachael Knox Age: 35 yrs Sex: Female : 1985 Arrival Date: 04/06/2020 Time: 05:03 Bed 7 Private MD: Diagnosis: Dyspnea;Asthma;Obesity, unspecified;Hypokalemia Presentation: 04/06 05:12 Chief complaint: Patient states: she woke up with difficulty breathing administered a bb breathing treatment but still feels like she is having difficulty breathing her daughter was recently dx with COVID. Coronavirus screen: difficulty breathing, Client presents with at least one sign or symptom that may indicate coronavirus-19. Standard/surgical mask placed on the client. Ebola Screen: No symptoms or risks identified at this time. Initial Sepsis Screen: Does the patient meet any 2 criteria? No. Patient's initial sepsis screen is negative. Does the patient have a suspected source of infection? No. Patient's initial sepsis screen is negative. Risk Assessment: Do you want to hurt yourself or someone else? Patient reports no desire to harm self or others. Onset of symptoms was April 06, 2020. 05:12 Method Of Arrival: Ambulatory bb 05:12 Acuity: DRASHAN 3 bb Triage Assessment: 05:15 General: Appears in no apparent distress. Respiratory: Onset: The symptoms/episode rr5 began/occurred gradually, the patient has mild shortness of breath. 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 - Social history:: Smoking status: Patient denies any tobacco usage or history of. Patient/guardian denies using alcohol, street drugs. - Family history:: not pertinent. Screenin:22 Abuse screen: Denies threats or abuse. Denies injuries from another. Nutritional rr5 screening: No deficits noted. Tuberculosis screening: No symptoms or risk factors identified. Fall Risk IV access (20 points). Total Brink Fall Scale indicates No Risk (0-24 pts). Assessment: 06:15 General: Appears in no apparent distress. uncomfortable, Behavior is cooperative, rr5 appropriate for age, anxious. Pain: Denies pain. Neuro: Level of Consciousness is awake, alert, obeys commands, Oriented to person, place, time. Cardiovascular: Capillary refill < 3 seconds Patient's skin is warm and dry. Rhythm is regular. Respiratory: Reports shortness of breath cough that is Airway is patent Trachea Respiratory effort is even, unlabored, Respiratory pattern is regular, symmetrical, GI: No signs and/or symptoms were reported involving the gastrointestinal system. : No signs and/or symptoms were reported regarding the genitourinary system. EENT: No signs and/or symptoms were reported regarding the EENT system. Derm: Skin is intact, is healthy with good turgor, Skin temperature is warm. Musculoskeletal: Circulation, motion, and sensation intact. Capillary refill < 3 seconds. 07:00 Reassessment: RECD REPORT FROM PHLYLIS GORMAN. 35YO HF P/W SOB. ALL CURRENT ORDERS bp COMPLETED, RESULTS PENDING. 07:30 Reassessment: Patient appears in no apparent distress at this time. Patient and/or em family updated on plan of care and expected duration. Pain level reassessed. Patient is alert, oriented x 3, equal unlabored respirations, skin warm/dry/pink. 08:22 Reassessment: Dr. Sutton at bedside. em 09:09 Reassessment: Patient appears in no apparent distress at this time. Patient and/or em family updated on plan of care and expected duration. Pain level reassessed. Patient is alert, oriented x 3, equal unlabored respirations, skin warm/dry/pink. covid neg. moved to ER7, pending room assignment. 10:30 Reassessment: Patient appears in no apparent distress at this time. Patient and/or em family updated on plan of care and expected duration. Pain level reassessed. Patient is alert, oriented x 3, equal unlabored respirations, skin warm/dry/pink. Vital Signs: 05:12 BP 143 / 89; Pulse 90; Resp 18 S; Temp 97.7(O); Pulse Ox 96% on R/A; Weight 151.95 kg bb (R); Height 5 ft. 5 in. (165.10 cm) (R); Pain 0/10; 06:17 BP 140 / 80; Pulse 85; Resp 19; Pulse Ox 100% on 15% Nebulizer Mask; rr5 08:02 BP 101 / 69; Pulse 77; Resp 18; Pulse Ox 95% on R/A; Pain 0/10; em 09:04 BP 106 / 68; Pulse 78; Resp 18; Pulse Ox 93% on R/A; em 10:19 BP 119 / 76; Pulse 65; Resp 18; Temp 98.0(O); Pulse Ox 95% on 3 lpm NC; mh5 05:12 Body Mass Index 55.75 (151.95 kg, 165.10 cm) bb ED Course: 05:03 Patient arrived in ED. bp1 05:06 Phyllis Peck RN is Primary Nurse. rr5 05:10 Kang Gifford MD is Attending Physician. ze 05:13 Triage completed. bb 05:15 Arm band placed on Patient placed in an exam room, on a stretcher, on pulse oximetry. bb 05:23 Patient has correct armband on for positive identification. Call light in reach. Pulse rr5 ox on. NIBP on. 06:00 Inserted saline lock: 20 gauge in right antecubital area, using aseptic technique. rr5 Blood collected. 06:00 First set of blood cultures drawn by me. rr5 06:04 XRAY Chest (1 view) In Process Unspecified. EDMS 06:10 Second set of blood cultures drawn by me. rr5 06:15 Initial Neb Treatment Given as ordered Patient was instructed and evaluated on rr5 procedure. 06:56 covid. rr5 06:56 Initial Neb Treatment Given as ordered Patient tolerated procedure well without adverse rr5 effect. 07:05 Primary Nurse role handed off by Phyllis Peck RN bp 07:05 Adithya Guillen, VITA is Primary Nurse. bp 07:13 Olvin Oneill DO is Hospitalizing Provider. ze 07:28 Phyllis Sutton MD is Hospitalizing Provider. ze 08:[address] sw 09:02 CT Chest For PE Angio In Process Unspecified. EDMS 09:05 CT completed. Patient tolerated procedure well. Patient moved back from CT. 12:15 No provider procedures requiring assistance completed. Patient admitted, IV remains in em place. Administered Medications: 05:55 Drug: Lovenox 100 mg Route: Sub-Q; Site: right lower abdomen; rr5 07:00 Follow up: Response: No adverse reaction rr5 06:00 Drug: NS 0.9% 500 ml Route: IV; Rate: bolus; Site: right antecubital; rr5 06:40 Follow up: Response: No adverse reaction; IV Status: Completed infusion; IV Intake: rr5 500ml 06:10 Drug: Zofran (Ondansetron) 4 mg Route: IVP; Site: right antecubital; rr5 07:12 Follow up: Response: No adverse reaction rr5 06:11 Drug: Decadron - Dexamethasone 10 mg Route: IVP; Site: right antecubital; rr5 07:13 Follow up: Response: No adverse reaction rr5 06:13 Drug: NS 0.9% 1000 ml Route: IV; Rate: 125 ml/hr; Site: right antecubital; rr5 12:21 Follow up: IV Status: Infusion continued upon admission em 06:13 Drug: levofloxacin 750 mg Volume: 150 ml; Route: IVPB; Infused Over: 90 mins; Site: rr5 right antecubital; 07:35 Follow up: Response: No adverse reaction; IV Status: Completed infusion; IV Intake: em 150ml 06:14 Drug: AtroVENT Aerosol 0.5 mg Route: Inhalation; rr5 07:13 Follow up: Response: No adverse reaction rr5 06:14 Drug: Pepcid 20 mg Route: IVP; Site: right antecubital; rr5 07:12 Follow up: Response: No adverse reaction rr5 06:15 Drug: Xopenex 3.75 mg Route: Inhalation; rr5 07:13 Follow up: Response: No adverse reaction rr5 07:34 Drug: Xopenex 2.5 mg Route: Inhalation; em 08:01 Follow up: Response: No adverse reaction; Marked relief of symptoms em Intake: 06:40 IV: 500ml; Total: 500ml. rr5 07:35 IV: 150ml; Total: 650ml. em Outcome: 07:15 Decision to Hospitalize by Provider. ze 12:15 Admitted to Tele accompanied by tech, via wheelchair, room 223, with oxygen, with em chart, Report called to VITA Cardona 12:15 Condition: good 12:15 Instructed on the need for admit, Demonstrated understanding of instructions. 12:22 Patient left the ED. em Signatures: Dispatcher [employer] Kang Singleton MD MD cha Munoz, Edgar, RN RN Sarah Richardson RN RN bb Williams, Irene, RN RN iw Warren, Shannon sw Martinez, Maria [facility] Adithya Guillen RN Phyllis Brown RN RN rr5 Johnna Asher bp1 Corrections: (The following items were deleted from the chart) 07:36 07:28 CORONAVIRUS+.MARIA FERNANDA drawn and sent. duran FLORES
--- NOTE | 2020-04-06 08:43 | RAD REPORT ---
EXAM DESCRIPTION: RAD - Chest Single View - 04/06/2020 6:03 am CLINICAL HISTORY: Cough;Dyspnea COMPARISON: August 14, 2019 TECHNIQUE: AP portable chest image was obtained 04/06/2020 6:03 am . FINDINGS: Lung volumes are low limiting assessment, particularly retrocardiac left base. No dense ma ss or consolidation evident. No significant failure or volume overload findings. Heart and vasculatur e are normal. No measurable pleural effusion and no pneumothorax. No acute bony abnormality seen. No acute aortic findings suspected. IMPRESSION: No acute cardiopulmonary process. Exam is limited by the affects of large body habitus, portable technique and shallow inspiration. Rep eat imaging can be performed the patient remains symptomatic.
--- NOTE | 2020-04-06 09:18 | RAD REPORT ---
EXAM DESCRIPTION: CT - Chest For Pe Angio - 04/06/2020 9:03 am CLINICAL HISTORY: Pain;Dyspnea Pain;Dyspnea patient's daughter recently diagnosed with COVID-19 COMPARISON: Chest Single View dated 04/06/2020 TECHNIQUE: Dynamically enhanced 3 mm thick images of the chest were obtained during administration o f approximately 150mL Isovue 370 IV contrast. Coronal and oblique MIP reconstruction images were gene rated and reviewed. Exam utilizes a protocol to evaluate the pulmonary arterial tree. All CT scans are performed using dose optimization technique as appropriate and may include automated exposure control or mA/KV adjustment according to patient size. FINDINGS: No pulmonary emboli are identified. The aorta as imaged shows no acute or suspicious finding. No pericardial thickening or effusion. No consolidations seen that is typical for bacterial pneumonia. Mild prominence of the interstitium n oted. There is some hazy ground-glass opacification present. This is minimal in degree and diffusely present in both upper lobes. This is a pattern more typically is seen with atelectasis. Minimal edema is possible as well. Lung parenchymal pattern does not elevate suspicion for a COVID-19 pneumonia. N o pleural effusion or pleural thickening. No mediastinal or hilar suspicious masses. No chest wall masses or abnormal axillary lymphadenopathy. IMPRESSION: No pulmonary emboli identified. Prominence of the lung parenchymal interstitium and there is some hazy ground-glass opacification of the upper lung chakraborty.Atelectasis or minimal alveolar edema would be possible. No focal consolidation to suspect a bacterial pneumonia. Current lung parenchymal pattern does not el evate suspicion for a COVID-19 pneumonia.
--- NOTE | 2020-04-06 10:09 | P.HP ---
Certification for Inpatient Patient admitted to: Observation With expected LOS: <2 Midnights Practitioner: I am a practitioner with admitting privileges, knowledge of patient current condition, hospital course, and medical plan of care. Services: Services provided to patient in accordance with Admission requirements found in Title 42 Section 412.3 of the Code of Federal Regulations Patient History Date of Service: 04/06/20 Reason for admission: hypoxia, Asthma exacerbation History of Present Illness: 35yo morbidly obese female, PMH: Hypothyroid, anxiety/bipolar, asthma who presents with sudden onset of shortness of breath. She states she woke up feeling like she could not breathe. She became very anxious and presented to the ED. In the ED, she was noted to be tachypneic, distressed. She states her daughter was recentl diagnosis with COVID - and she has been exposed to her over the past week. She reports some wheeze, albuterol inhaler at home did not help at all.. SpO2: mid 80s%, no leukocytosis, COVID negative. Negative D-dimer, lipase of 140, CXR: No acute cardiopulmonary process. CT chest with concern for Allergies erythromycin base Allergy (Verified 02/05/19 17:45) unknown Penicillins Allergy (Verified 02/05/19 17:45) Unknown Sulfa (Sulfonamide Antibiotics) Allergy (Verified 02/05/19 17:45) Unknown sulfamethoxazole [From Bactrim] Allergy (Verified 02/05/19 17:45) Unknown trimethoprim [From Bactrim] Allergy (Verified 02/05/19 17:45) Unknown Home Medications: NK [No Home Meds] 04/06/20 - Past Medical/Surgical History Diabetic: No -: thyroid disease -: anxiety -: depression -: bipolar -: c section -: tubal ligation - Family History Father -: Other (see notes) Notes: drug addict Mother -: Heart disease, Hypertension, Diabetes Notes: copd,chf - Social History Smoking Status: Never smoker Alcohol use: No Place of Residence: Home Review of Systems 10-point ROS is otherwise unremarkable Physical Examination - Physical Exam General: Alert, Mild distress, Obese HEENT: Sclerae nonicteric Respiratory: Diminished (At bases bilaterally), Expiratory wheezes (Mild) Cardiovascular: No edema, Regular rate/rhythm, Normal S1 S2 Gastrointestinal: Soft and benign, Non-distended, No tenderness Musculoskeletal: No tenderness Integumentary: No rashes Neurological: Normal speech, Normal affect - Studies Laboratory Data (last 24 hrs) 04/06/20 : Lipase 140 04/06/20 06:00: PT 10.6, INR 0.90 04/06/20 06:00: WBC 6.1, Hgb 11.5 L, Hct 34.8 L, Plt Count 213 04/06/20 06:00: Sodium 142, Potassium 3.3 L, BUN 12, Creatinine 1.15, Glucose 123 H, Magnesium 2.5 H, Total Bilirubin 0.4, AST 565 H*, ALT 198 H, Alkaline Phosphatase 106 Assessment and Plan - Advance Directives Does patient have a Living Will: No Does patient have a Durable POA for Healthcare: No Physician Review Additional Text: Acute hypoxemia, possible asthma exacerbation Hypothyroid Anxiety/bipolar -recent COVID exposure at home from daughter, was negative swab in the ED, a CT with some ground-glass opacities, however not consistent with bacterial pneumonia or covid -treat with steroids, albuterol nebulizer, oxygen as needed -it's not appear to have infectious process going on -patient states she has not been taking any of her medications for several months with exception of her albuterol -check TSH, T4 VTE: Lovenox Dispo: Anticipate Dc home tomorrow Time Spent Managing Pts Care (In Minutes): 55
[2020-04-06] MEDS ORDERED: ONDANSETRON 4 MG/2 ML VIAL IV PRN (13:00)
[2020-04-06] MEDS ORDERED: POTASSIUM CL SA 10 MEQ TAB PO ONE (13:02)
[2020-04-06] MEDS: ALBUTEROL 2.5 MG/3 ML NEB SOL NEB SCH ×2 (13:15→19:55)
[2020-04-06 13:19] VITALS: BMI 55.7
[2020-04-06] MEDS: METHYLPREDNISOLONE 40 MG INJ IV SCH ×2 (13:42→17:20)
[2020-04-06] MEDS ORDERED: IBUPROFEN 400 MG TAB PO ONE (20:48)
[2020-04-06] MEDS ORDERED: IBUPROFEN 600 MG TAB PO ONE (21:00)
[2020-04-07] MEDS: METHYLPREDNISOLONE 40 MG INJ IV SCH ×2 (00:53→09:03)
[2020-04-07] MEDS: ALBUTEROL 2.5 MG/3 ML NEB SOL NEB SCH ×2 (01:00→08:32)
[2020-04-07 05:49] LABS: Absolute Lymphocytes (CBC) 0.8 K/uL (0.7-4.9); Basophils % 0.3 % (0-1.3); Hematocrit 34.2 % (36.0-45.0); Lymphocytes % 5.5 % (15.3-44.8); MPV 10.5 fL (7.6-11.3); RBC Red Blood Cell Count 3.74 M/uL (3.86-4.86)
[2020-04-07 06:14] LABS: ALT/SGPT 136 U/L (12-78); AST/SGOT 129 U/L (15-37); Albumin 4.1 g/dL (3.4-5.0); Alkaline Phosphatase 89 U/L (45-117); BUN Blood Urea Nitrogen 11 mg/dL (7-18); Bicarbonate 28 mmol/L (21-32); Bilirubin Total 0.5 mg/dL (0.2-1.0); Glucose Level 125 mg/dL (74-106); Magnesium 2.7 mg/dL (1.8-2.4); Potassium 4.5 mmol/L (3.5-5.1); Protein, Total 7.6 g/dL (6.4-8.2); Sodium Level 140 mmol/L (136-145)
[2020-04-07 06:16] LABS: C-Reactive Protein < 2.90 mg/L (<3.00)
--- NOTE | 2020-04-07 08:24 | P.DS ---
Admission Date: 04/06/20 Discharge Date: 04/07/20 Disposition: ROUTINE DISCHARGE Discharge Condition: GOOD Reason for Admission: Hypoxia Procedures: CXR (04/06): No acute cardiopulmonary process. Rapid COVID swab (04/06): Negative CTA chest (04/06): No PE identified. The aorta as imaged shows no acute or suspicious finding. No pericardial thickening or effusion. No consolidations seen that is typical for bacterial pneumonia. Mild prominence of the interstitium noted. There is some hazy ground-glass opacification present. This is minimal in degree and diffusely present in both upper lobes. This is a pattern more typically is seen with atelectasis. Minimal edema is possible as well. Lung parenchymal pattern does not elevate suspicion for a COVID-19 pneumonia. No pleural effusion or pleural thickening. No mediastinal or hilar suspicious masses. No chest wall masses or abnormal axillary lymphadenopathy. Problem list Acute hypoxemia, asthma exacerbation Obesity hypoventilation syndrome, likely JIN Elevated LFTs Hypothyroidism Super morbid obesity Anxiety/depression Brief History of Present Illness: 35yo morbidly obese female, PMH: Hypothyroid, anxiety/bipolar, asthma who presents with sudden onset of shortness of breath. She states she woke up feeling like she could not breathe. She became very anxious and presented to the ED. In the ED, she was noted to be tachypneic, distressed. She states her daughter was recentl diagnosis with COVID - and she has been exposed to her over the past week. She reports some wheeze, albuterol inhaler at home did not help at all.. SpO2: mid 80s%, no leukocytosis, COVID negative. Negative D-dimer, lipase of 140, CXR: No acute cardiopulmonary process. CT chest not consistent with COVID or pneumonia. Hospital Course: The patient was treated with IV Solu-Medrol and albuterol nebulizers. She had significant improvement in her breathing. She was noted to become hypoxemic at times while sleeping to the mid 80s. On the following morning, she felt back to her usual baseline her and was asking to be discharged home. She ambulated well around the nursing station and maintained SpO2 > 92%. She was advised to follow up with Dr. Lugo ([facility] Director) who can further evaluate her for obstructive sleep apnea. She was advised to follow up with her PCP for continued surveillance and treatment of her hypothyroidism and further evaluation/repeat LFTs. Elevated LFTs In the ED, lab work was notable for elevated LFTs (AST: 565, ALT: 198, alkaline phosphatase: 106) and normal bilirubin. Patient reported no history of liver disease, no history of IV drug use, she has had blood transfusions in the past. An ultrasound of her liver was ordered, however patient did not want to stay to have that done. And her LFTs and significantly improved the following morning (AST: 129, ALT: 136, alkaline phosphatase: 89). Hypothyroidism Patient stopped taking her medications several months ago. Her TSH and free T4 were checked (33.4, 0.27 respectively). She was sent home with a prescription for her previous dose of 150 mcg of levothyroxine. Vital Signs/Physical Exam: Temp Pulse Resp BP Pulse Ox 97.6 F 82 20 111/57 L 97 04/07/20 04:00 04/07/20 04:00 04/07/20 04:00 04/07/20 04:00 04/07/20 04:00 General: Alert, In no apparent distress, Oriented x3 HEENT: Mucous membr. moist/pink, Sclerae nonicteric Neck: Supple Respiratory: Clear to auscultation bilaterally, Normal air movement Cardiovascular: No edema, Regular rate/rhythm, Normal S1 S2, No murmurs Gastrointestinal: Soft and benign, Non-distended, No tenderness Musculoskeletal: No tenderness Integumentary: No rashes Neurological: Normal speech, Normal affect Laboratory Data at Discharge: WBC 14.1 K/uL (4.3-10.9) H D 04/07/20 05:20 Hgb 11.0 g/dL (12.0-15.0) L 04/07/20 05:20 Hct 34.2 % (36.0-45.0) L 04/07/20 05:20 Plt Count 211 K/uL (152-406) 04/07/20 05:20 PT 10.6 SECONDS (9.5-12.5) 04/06/20 06:00 INR 0.90 04/06/20 06:00 Sodium 140 mmol/L (136-145) 04/07/20 05:20 Potassium 4.5 mmol/L (3.5-5.1) 04/07/20 05:20 BUN 11 mg/dL (7-18) 04/07/20 05:20 Creatinine 1.12 mg/dL (0.55-1.3) 04/07/20 05:20 Glucose 125 mg/dL (74-106) H 04/07/20 05:20 Phosphorus 3.6 mg/dL (2.5-4.9) 04/07/20 05:20 Magnesium 2.7 mg/dL (1.8-2.4) H 04/07/20 05:20 Total Bilirubin 0.5 mg/dL (0.2-1.0) 04/07/20 05:20 AST 129 U/L (15-37) H D 04/07/20 05:20 ALT 136 U/L (12-78) H 04/07/20 05:20 Alkaline Phosphatase 89 U/L (45-117) 04/07/20 05:20 Lipase 140 U/L (73-393) 04/06/20 Unknown Home Medications: Albuterol Inhaler [Ventolin Inhaler*] 2 puff IH Q6H PRN 30 Days #1 hfa.[email or web address] 04/07/20 Levothyroxine Sodium [Synthroid] 150 mcg PO DAILY 30 Days #30 tablet 04/07/20 predniSONE [Prednisone*] 20 mg PO BID 4 Days #8 tab 04/07/20 New Medications: predniSONE [Prednisone*] 20 mg PO BID 4 Days #8 tab Levothyroxine Sodium [Synthroid] 150 mcg PO DAILY 30 Days #30 tablet Albuterol Inhaler [Ventolin Inhaler*] 2 puff IH Q6H PRN 30 Days #1 hfa.aer.ad PRN Reason: Shortness Of Breath Patient Discharge Instructions: follow up with PCP within 3-5 days. Recommend evaluation for obstructive sleep apnea. Prescriptions sent for: prednisone, levothyroxine, and albuterol inhaler. Diet: Regular Activity: Ad olena Followup: Unknown,U [Primary Care Provider] - Time spent managing pt's care (in minutes): 35
[2020-04-07] MEDS ORDERED: ENOXAPARIN 40 MG/0.4 ML SQ SCH (09:00)
[2020-04-07 09:24] VITALS: BP 117/69; TEMP 97.7
[2020-04-07 10:25] LABS: Platelet Estimate ADEQ; White Blood Cell Scan OK (OK)
[2020-04-07 10:26] LABS: Blood Morphology Comment NOT SEEN (NOT SEEN)
[2020-04-07 10:55] VITALS: O2SAT 93
--- NOTE | 2020-04-08 07:48 | EKG ---
Test Date: 2020-04-06 Test Time: 05:41:56 Trimming Department Blocker: RR MEASUREMENT RESULTS: Intervals: Rate: 80 TN: 160 QRSD: 110 QT: 348 QTc: 401 [place]: P: 47 TN: 160 QRS: 8 T: 183 INTERPRETIVE STATEMENTS: Normal sinus rhythm Low voltage QRS Nonspecific T wave abnormality Abnormal ECG Compared to ECG 08/14/2019 16:17:40 T-wave abnormality now present Myocardial infarct finding no longer present Electronically Signed On 04-08-20 07:41:40 CAMP MAINTENANCE SUPERVISOR by Dagoberto Ramos
== END 2020-04-07 09:40 | disposition home or self-care (01) | DRG 202 ==
LOC: ER 05:03 → ERHOLD 10:04 → 2ND 12:17 → OBSVTOIN 18:41
PROVIDERS: ADMIT Hospitalist; ATTEND Hospitalist
DX: J45.901 Unspecified asthma with (acute) exacerbation (principal); E66.2 Morbid (severe) obesity with alveolar hypoventilation; Z68.43 Body mass index [BMI] 50.0-59.9, adult; I10 Essential (primary) hypertension; F41.9 Anxiety disorder, unspecified; F32.9 Major depressive disorder, single episode, unspecified; E03.9 Hypothyroidism, unspecified; R09.02 Hypoxemia; R79.89 Other specified abnormal findings of blood chemistry; Z79.899 Other long term (current) drug therapy; Z88.1 Allergy status to other antibiotic agents; Z88.0 Allergy status to penicillin; Z79.52 Long term (current) use of systemic steroids; Z79.890 Hormone replacement therapy; Z98.51 Tubal ligation status; Z20.828 Contact with and (suspected) exposure to other viral communicable diseases
CPT/HCPCS: 36415; 71045; 71275; 80048; 80053; 80076; 83690; 83735; 83880; 84100; 84132; 84145; 84439; 84443; 84484; 85025; 85379; 85610; 86140; 87040; 93005; 94640; 94760; 96361; 96365; 96372; 96375; 99285; J1100; J1650; J2405; J2920; J7030; Q9967; U0003

== ENCOUNTER 2020-08-08 19:58 | Inpatient (IN) | payer SELFPAY ==
--- OUTSIDE RECORDS SUMMARY | 2020-08-08 20:00 | XMS REPORT | Continuity of Care Document ---
:1985 Author Organization [facility] t Address [address] [place] [address] Dr. Marshall [address] [place] [id number] Care Team Providers Name Role Phone Unavailable Unavailable Unavailable Problems This patient has no known problems. Allergies, Adverse Reactions, Alerts This patient has no known allergies or adverse reactions. Medications This patient has no known medications. Procedures This patient has no known procedures. Results This patient has no known results.
[2020-08-09 00:10] LABS: Absolute Lymphocytes (CBC) 0.5 K/uL (0.7-4.9); Basophils % 0.8 % (0-1.3); Hematocrit 33.4 % (36.0-45.0); Lymphocytes % 7.5 % (15.3-44.8); MPV 10.5 fL (7.6-11.3); RBC Red Blood Cell Count 3.55 M/uL (3.86-4.86)
[2020-08-09 01:21] LABS: ALT/SGPT 51 U/L (12-78); AST/SGOT 60 U/L (15-37); Albumin 4.2 g/dL (3.4-5.0); BUN Blood Urea Nitrogen 12 mg/dL (7-18); Bicarbonate 32 mmol/L (21-32); Bilirubin Direct < 0.1 mg/dL (0-0.2); Bilirubin Total 0.4 mg/dL (0.2-1.0); Glucose Level 83 mg/dL (74-106); Magnesium 2.6 mg/dL (1.8-2.4); Potassium 3.6 mmol/L (3.5-5.1); Protein, Total 7.7 g/dL (6.4-8.2); Sodium Level 144 mmol/L (136-145)
[2020-08-09 01:25] LABS: Alkaline Phosphatase ND U/L (45-117); T3 Free < 0.50 pg/mL (2.18-3.98)
--- NOTE | 2020-08-09 01:33 | ER ---
Nurse's Notes [facility] Name: Rachael Knox Age: 35 yrs Sex: Female : 1985 Arrival Date: 08/08/2020 Time: 19:58 Bed 8 Private MD: Diagnosis: Coronavirus infection, unspecified;Hypoxemia;Hypothyroidism, unspecified Presentation: 08/08 20:19 Chief complaint: Patient states: Fatigue for 3 days. Slight cough with burning in upper ll1 chest with cough for 3 days. + weakness and sleeping all day. Coronavirus screen: Client denies travel out of the [place] in the last 14 days. cough unrelated to allergies, fatigue, muscle pain, Client presents with at least one sign or symptom that may indicate coronavirus-19. Standard/surgical mask placed on the client. Ebola Screen: Patient denies travel to an Ebola-affected area in the 21 days before illness onset. Initial Sepsis Screen: Does the patient meet any 2 criteria? No. Patient's initial sepsis screen is negative. Does the patient have a suspected source of infection? Yes: Productive cough/pneumonia. Risk Assessment: Do you want to hurt yourself or someone else? Patient reports no desire to harm self or others. Onset of symptoms was August 06, 2020. 20:19 Method Of Arrival: Ambulatory ll1 20:19 Acuity: DARSHAN 3 ll1 Triage Assessment: 23:42 General: Appears. rv Historical: - Allergies: 20:22 Azithromycin; ll1 20:22 Bactrim; ll1 20:22 mycins; ll1 20:22 PENICILLINS; ll1 20:22 Sulfa (Sulfonamide Antibiotics); ll1 - PMHx: 20:22 Anxiety; Bipolar disorder; Hypertension; Hypothyroidism; ll1 20:25 Asthma; Anemia; ll1 - PSHx: 20:22 ; Tubal ligation; Tonsillectomy; D\T\C; ll1 - Immunization history:: Flu vaccine is not up to date. - Social history:: Smoking status: Patient reports the use of cigarette tobacco products, denies chronic smoking, but will smoke occasionally. Screenin:42 Abuse screen: Denies threats or abuse. Denies injuries from another. Nutritional rv screening: No deficits noted. Tuberculosis screening: No symptoms or risk factors identified. Fall Risk None identified. Assessment: 23:42 General: Appears comfortable, Behavior is calm, cooperative. Pain: Denies pain. Neuro: rv Level of Consciousness is awake, alert, obeys commands, Oriented to person, place, time, situation. Cardiovascular: Patient's skin is warm and dry. Respiratory: Airway is patent Respiratory effort is even, unlabored. Derm: Skin is intact. Vital Signs: 20:19 BP 125 / 103; Pulse 79; Resp 17; Temp 98.6; Pulse Ox 91% on R/A; Weight 152.86 kg; ll1 Height 5 ft. 5 in. (165.10 cm); Pain 0/10; 08/09 00:55 BP 102 / 59; Pulse 75; Resp 16; Pulse Ox 97% on 2 lpm NC; rv 02:11 BP 145 / 98; Pulse 79; Resp 17; Temp 98.4; Pulse Ox 96% on 2 lpm NC; rv 08/08 20:19 Body Mass Index 56.08 (152.86 kg, 165.10 cm) ll1 ED Course: 08/08 19:58 Patient arrived in ED. cl3 20:21 Triage completed. ll1 20:22 Arm band placed on. ll1 22:53 Kang Gifford MD is Attending Physician. ze 22:53 Kang Clemente PA is PHCP. cp 23:16 Luis Ferro, VITA is Primary Nurse. rv 23:30 Inserted saline lock: 20 gauge in left antecubital area, using aseptic technique. Blood rv collected. 23:30 Initial lab(s) drawn, by me, sent to lab. rv 23:43 Patient has correct armband on for positive identification. Pulse ox on. NIBP on. rv 08/09 01:20 XRAY Chest (1 view) In Process Unspecified. EDMS 01:30 Garo Sutton MD is Hospitalizing Provider. cp 02:10 No provider procedures requiring assistance completed. IV is patent, with fluids rv infusing freely, Patient admitted, IV remains in place. Administered Medications: 01:41 Drug: SOLU-Medrol 125 mg Route: IVP; Site: left antecubital; rv 02:10 Follow up: Response: No adverse reaction rv Outcome: 01:33 Decision to Hospitalize by Provider. cp 02:10 Admitted to Tele accompanied by nurse, via wheelchair, room 402, Other SBAR, EKG Report rv called to MOSHE GORMAN 02:10 Condition: good 02:10 Instructed on the need for admit. 02:11 Patient left the ED. rv Signatures: Dispatcher [employer] EDKang Gutierres MD MD cha Page, Corey, Luis Pfeiffer cp, RN RN Clayton Back cl3 Yonny Campbell RN RN ll1 Corrections: (The following items were deleted from the chart) 08/08 20:23 20:19 BP 125 / 103; Pulse 79bpm; Resp 17bpm; Pulse Ox 95%; Temp 98.6F; 152.86 kg; ll1 Height 5 ft. 5 in.; BMI: 56.0; Pain 0/10; ll1
--- NOTE | 2020-08-09 01:33 | EDPHYS ---
Physician Documentation [facility] Name: Rachael Knox Age: 35 yrs Sex: Female : 1985 Arrival Date: 08/08/2020 Time: 19:58 Bed 8 Private MD: SIER[place] Physician Kang Gifford HPI: 08/08 23:13 This 35 yrs old Female presents to ER via Ambulatory with complaints of cp Fatigue. 23:13 Onset: The symptoms/episode began/occurred 3 day(s) ago. cp 23:13 Associated signs and symptoms: Pertinent positives: cough, shortness of breath, cp Pertinent negatives: abdominal pain, chest pain, diarrhea, fever, headache, vomiting. Modifying factors: the patient symptoms are aggravated by light activity. Historical: - Allergies: 20:22 Azithromycin; ll1 20:22 Bactrim; ll1 20:22 mycins; ll1 20:22 PENICILLINS; ll1 20:22 Sulfa (Sulfonamide Antibiotics); ll1 - PMHx: 20:22 Anxiety; Bipolar disorder; Hypertension; Hypothyroidism; ll1 20:25 Asthma; Anemia; ll1 - PSHx: 20:22 ; Tubal ligation; Tonsillectomy; D\T\C; ll1 - Immunization history:: Flu vaccine is not up to date. - Social history:: Smoking status: Patient reports the use of cigarette tobacco products, denies chronic smoking, but will smoke occasionally. ROS: 23:15 Constitutional: Positive for fatigue, Negative for body aches, chills, fever, poor PO cp intake, weight loss. 23:15 Eyes: Negative for injury, pain, redness, and discharge. cp 23:15 ENT: Negative for drainage from ear(s), ear pain, sore throat, difficulty swallowing, difficulty handling secretions. 23:15 Cardiovascular: Negative for chest pain, edema, palpitations. 23:15 Respiratory: Positive for cough, with no reported sputum. 23:15 Abdomen/GI: Negative for abdominal pain, nausea, vomiting, and diarrhea, constipation, black/tarry stool, rectal bleeding. 23:15 : Negative for urinary symptoms. 23:15 Skin: Negative for cellulitis, rash. 23:15 Neuro: Negative for altered mental status, headache, loss of consciousness, syncope, weakness. 23:15 All other systems are negative. Exam: 23:20 Constitutional: The patient appears in no acute distress, alert, awake, cp non-diaphoretic, non-toxic, well developed, well nourished, obese. 23:20 Head/Face: Normocephalic, atraumatic. cp 23:20 Eyes: Periorbital structures: appear normal, Pupils: equal, round, and reactive to light and accomodation, Extraocular movements: intact throughout, Conjunctiva: normal, no exudate, no injection, Sclera: no appreciated abnormality, Lids and lashes: appear normal, bilaterally. 23:20 ENT: External ear(s): are unremarkable, Ear canal(s): are normal, clear, TM's: dullness, bilaterally, Nose: is normal, Mouth: Lips: moist, Oral mucosa: pink and intact, moist, Posterior pharynx: Airway: no evidence of obstruction, patent, erythema, is not appreciated, exudate, is not appreciated. 23:20 Neck: ROM/movement: is normal, is supple, without pain, no range of motions limitations, no meningismus. 23:20 Chest/axilla: Inspection: normal, Palpation: is normal, no crepitus, no tenderness. 23:20 Cardiovascular: Rate: normal, Rhythm: regular, Edema: is not appreciated, JVD: is not appreciated. 23:20 Respiratory: the patient does not display signs of respiratory distress, Respirations: normal, no use of accessory muscles, no retractions, Breath sounds: decreased breath sounds, that are mild, throughout, stridor, is not appreciated, wheezing: is not appreciated. 23:20 Abdomen/GI: Inspection: abdomen appears normal, Palpation: abdomen is soft and non-tender, in all quadrants. 23:20 Back: pain, is absent, ROM is normal. 23:20 Skin: Appearance: Color: pale, no rash present. 23:20 Neuro: Orientation: to person, place \T\ time. Mentation: is normal, Cerebellar function: is grossly normal, Motor: moves all fours, strength is normal, Sensation: is normal. 23:26 ECG was reviewed by the Attending Physician. cp Vital Signs: 20:19 BP 125 / 103; Pulse 79; Resp 17; Temp 98.6; Pulse Ox 91% on R/A; Weight 152.86 kg; ll1 Height 5 ft. 5 in. (165.10 cm); Pain 0/10; 08/09 00:55 BP 102 / 59; Pulse 75; Resp 16; Pulse Ox 97% on 2 lpm NC; rv 02:11 BP 145 / 98; Pulse 79; Resp 17; Temp 98.4; Pulse Ox 96% on 2 lpm NC; rv 08/08 20:19 Body Mass Index 56.08 (152.86 kg, 165.10 cm) ll1 MDM: 08/08 22:53 Patient medically screened. ze 08/09 00:00 Differential diagnosis: viral Infection, bacterial infection, pneumonia UTI, COVID-19, cp anemia. 01:30 Data reviewed: vital signs, nurses notes, lab test result(s), EKG, radiologic studies, cp plain films. 01:30 Test interpretation: by ED physician or midlevel provider: ECG, plain radiologic cp studies. Counseling: I had a detailed discussion with the patient and/or guardian regarding: the historical points, exam findings, and any diagnostic results supporting the discharge/admit diagnosis, lab results, radiology results, the need for further work-up and treatment in the hospital. Response to treatment: the patient's symptoms have mildly improved after treatment. Physician consultation: Elliott CHILEL was contacted at 01:25, regarding admission, to the medical/surgical unit. patient's condition. 08/08 23:17 Order name: Basic Metabolic Panel cp 08/08 23:17 Order name: CBC with Diff cp 08/08 23:17 Order name: LFT's cp 08/08 23:17 Order name: Magnesium cp 08/08 23:17 Order name: Urine Microscopic Only cp 08/08 23:17 Order name: TSH cp 08/08 23:17 Order name: T3 Free cp 08/08 23:17 Order name: Basic Metabolic Panel ED[facility] 08/08 23:17 Order name: CBC with Automated Diff; Complete Time: 00:29 EDNV 08/09 00:46 Interpretation: Normal except: RBC 3.55; HGB 10.7; HCT 33.4; ABRAHAM% 80.8; LYM% 7.5; cp EOSINOPHIL % 5.8; LYMA 0.5. 08/08 23:17 Order name: Liver (Hepatic) Function EDNV 08/08 23:17 Order name: Magnesium EDNV 08/09 01:25 Order name: SARS-COV-2 RT PCR; Complete Time: 01:28 EDNV 08/09 01:26 Order name: T4 Free ED[facility] 08/08 23:17 Order name: EKG; Complete Time: 23:17 cp 08/08 23:17 Order name: Cardiac monitoring; Complete Time: 23:26 cp 08/08 23:17 Order name: EKG - Nurse/Tech; Complete Time: 23:26 cp 08/08 23:17 Order name: IV Saline Lock; Complete Time: 23:26 cp 08/08 23:17 Order name: Labs collected and sent; Complete Time: 23:26 cp 08/09 01:03 Order name: XRAY Chest (1 view) cp 08/09 01:29 Order name: CRP la1 08/09 01:29 Order name: Ferritin la 08/09 01:29 Order name: Procalcitonin la 08/09 01:30 Order name: Procalcitonin [facility] 08/09 01:34 Order name: C-Reactive Protein [facility] 08/09 01:34 Order name: Ferritin [facility] 08/08 23:17 Order name: O2 Per Protocol; Complete Time: 23:26 cp 08/08 23:17 Order name: O2 Sat Monitoring; Complete Time: 23:26 cp EC/17 23:26 Rate is 74 beats/min. Rhythm is regular. IA interval is normal. QRS interval is cp prolonged at 110 msec. QT interval is normal. Interpreted by me. Reviewed by me. Administered Medications: 08/09 01:41 Drug: SOLU-Medrol 125 mg Route: IVP; Site: left antecubital; rv 02:10 Follow up: Response: No adverse reaction rv Disposition: 06:51 Co-signature as Attending Physician, Kang Gifford MD I agree with the assessment and [facility] plan of care. Disposition: 08/09/20 01:33 Hospitalization ordered by Garo Sutton for Inpatient Admission. Preliminary diagnosis are Coronavirus infection, unspecified, Hypoxemia, Hypothyroidism, unspecified. - Bed requested for Telemetry/MedSurg (Inpatient). - Status is Inpatient Admission. rv - Condition is Fair. - Problem is new. - Symptoms have improved. Signatures: Dispatcher [employer] [facility] Kang Gifford MD MD cha Lasagna, Tonya RN RN tl1 Kang Clemente PA PA cp Luis Ferro, RN RN rv Yonny Campbell RN RN ll1 Corrections: (The following items were deleted from the chart) 08/08 23:58 23:17 CORONAVIRUS+.BRZ ordered. [facility] 08/09 01:33 01:30 C-Reactive Protein ordered. [facility] EDNV :33 01:30 Ferritin ordered. [facility] ED[facility] 01:59 01:33 Hospitalization Ordered by Garo Sutton MD for Inpatient Admission. Preliminary tl1 diagnosis is Coronavirus infection, unspecified; Hypoxemia; Hypothyroidism, unspecified. Bed requested for Telemetry/MedSurg (Inpatient). Status is Inpatient Admission. Condition is Fair. Problem is new. Symptoms have improved. 02:11 01:59 08/09/2020 01:33 Hospitalization Ordered by Garo Sutton MD for Inpatient rv Admission. Preliminary diagnosis is Coronavirus infection, unspecified; Hypoxemia; Hypothyroidism, unspecified. Bed requested for Telemetry/MedSurg (Inpatient). Status is Inpatient Admission. Condition is Fair. Problem is new. Symptoms have improved. tl1
[2020-08-09 01:45] LABS: C-Reactive Protein 3.36 mg/L (<3.00); Ferritin 9.7 ng/mL (8-388)
[2020-08-09] MEDS ORDERED: METHYLPREDNISOLONE 125 MG INJ ONE (01:48)
--- NOTE | 2020-08-09 02:32 | P.HP ---
Certification for Inpatient Patient admitted to: Inpatient With expected LOS: >2 Midnights Patient will require the following post-hospital care: None Practitioner: I am a practitioner with admitting privileges, knowledge of patient current condition, hospital course, and medical plan of care. Services: Services provided to patient in accordance with Admission requirements found in Title 42 Section 412.3 of the Code of Federal Regulations <LilyElliott geronimo - Last Filed: 08/09/20 02:30> Patient History Date of Service: 08/09/20 Primary Care Provider: none Reason for admission: COVID pneumonia History of Present Illness: 35-year-old female with history of hypothyroidism, hypertension presents emergency department for shortness of breath, malaise. Patient reports increasing shortness of breath over the course of the last 3 days. Patient evaluated in the emergency department found to be positive for COVID, patient satting in the high 80s on room air. Also noted TSH 69.5 free T4 0.15, patient reports previously being on levothyroxine 150 mcg but has not taken last few months. CRP, ferritin, pro calcitonin levels pending. White blood cell count 6.6. ED provider wishes to admit for further evaluation and management. 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 - Family History Father -: Other (see notes) Notes: drug addict Mother -: Heart disease, Hypertension, Diabetes Notes: copd,chf - Social History Smoking Status: Current every day smoker Counseled patient to stop smoking for: less than 10 minutes Alcohol use: No CD- Drugs: No Caffeine use: Yes Place of Residence: Home <Elliott Vale - Last Filed: 08/09/20 02:30> Date of Service: 08/09/20 <Garo Sutton - Last Filed: 08/09/20 14:33> Allergies erythromycin base Allergy (Verified 02/05/19 17:45) unknown Penicillins Allergy (Verified 02/05/19 17:45) Unknown Sulfa (Sulfonamide Antibiotics) Allergy (Verified 02/05/19 17:45) Unknown sulfamethoxazole [From Bactrim] Allergy (Verified 02/05/19 17:45) Unknown trimethoprim [From Bactrim] Allergy (Verified 02/05/19 17:45) Unknown Home Medications: NK [No Home Meds] 08/09/20 Review of Systems 10-point ROS is otherwise unremarkable General: Malaise Respiratory: Cough, Shortness of Breath, SOB with Excertion <Elliott Vale - Last Filed: 08/09/20 02:30> Physical Examination - Vital Signs Temperature: 98.4 F Blood Pressure: 145/98 Pulse: 79 Respirations: 17 - Physical Exam General: Alert, In no apparent distress HEENT: Atraumatic, PERRLA, Mucous membr. moist/pink Neck: Supple, 2+ carotid pulse no bruit, No LAD Respiratory: Clear to auscultation bilaterally, Normal air movement Cardiovascular: Regular rate/rhythm, Normal S1 S2 Gastrointestinal: Normal bowel sounds, No tenderness Musculoskeletal: No tenderness Integumentary: No rashes Neurological: Normal speech, Normal strength at 5/5 x4 extr, Normal tone, Normal affect - Studies Laboratory Data (last 24 hrs) 08/08/20 23:22: WBC 6.60, Hgb 10.7 L, Hct 33.4 L, Plt Count 174 08/08/20 23:22: Sodium 144, Potassium 3.6, BUN 12, Creatinine 1.17, Glucose 83, Magnesium 2.6 H, Total Bilirubin 0.4, AST 60 H, ALT 51, Alkaline Phosphatase ND <Elliott Vale - Last Filed: 08/09/20 02:30> - Studies Laboratory Data (last 24 hrs) 08/08/20 23:22: WBC 6.60, Hgb 10.7 L, Hct 33.4 L, Plt Count 174 08/08/20 23:22: Sodium 144, Potassium 3.6, BUN 12, Creatinine 1.17, Glucose 83, Magnesium 2.6 H, Total Bilirubin 0.4, AST 60 H, ALT 51, Alkaline Phosphatase ND <Garo Sutton - Last Filed: 08/09/20 14:33> Assessment and Plan - Plan Assessment COVID pneumonia with hypoxia Hypothyroidism Hypertension Depression/anxiety Plan COVID pneumonia with hypoxia: Trend CRP, ferritin levels. Continue with IV steroids, oral supplements, ivermectin. Pulmonology consult in place. Daily room air saturations, room air saturations for home O2. Hypothyroidism: Patient not taking thyroid medication for the last number of months, continue with levothyroxine 0.15 mg which is her previous dose. Hypertension: Patient not currently taking any blood pressure medications, will add as needed. Depression/anxiety: Stable, no medications currently. Discharge Plan: Home Plan to discharge in: 72 Hours - Advance Directives Does patient have a Living Will: No Does patient have a Durable POA for Healthcare: No - Code Status/Comfort Care Code Status Assessed: Yes (Full code) Critical Care: No Time Spent Managing Pts Care (In Minutes): 55 <Elliott Vale - Last Filed: 08/09/20 02:30> - Plan Plan of care reviewed as noted above by Elliott Vale. COvID-10 pneumonia, acute respiratory failure wit hypoxia steroids, supplements, wean o2 as needed patient with 90-92% on 4L NC <Garo Sutton - Last Filed: 08/09/20 14:33>
[2020-08-09] MEDS ORDERED: MELATONIN 5 MG TABLET PO PRN (03:16)
[2020-08-09] MEDS ORDERED: ONDANSETRON 4 MG/2 ML VIAL IV PRN (03:16)
[2020-08-09] MEDS ORDERED: ACETAMINOPHEN 500 MG TAB PO PRN (03:16)
[2020-08-09 03:19] VITALS: BMI 60.7
[2020-08-09] MEDS: LEVOTHYROXINE SOD 0.075 MG TAB PO SCH (05:43)
[2020-08-09] MEDS ORDERED: IVERMECTIN 3 MG TABLET PO SCH (08:00)
[2020-08-09] MEDS: VITAMIN D 1000 UNIT TAB PO SCH (08:46)
[2020-08-09] MEDS: THIAMINE HCL 100 MG TABLET PO SCH (08:46)
[2020-08-09] MEDS: METHYLPREDNISOLONE 40 MG INJ IV SCH ×2 (08:46→20:10)
[2020-08-09] MEDS: ZINC SULFATE 220 MG CAP PO SCH (08:47)
[2020-08-09] MEDS: BENZONATATE 100 MG CAP PO PRN (08:47)
[2020-08-09] MEDS: ASCORBIC ACID 500 MG TABLET PO SCH ×4 (08:47→20:10)
[2020-08-09] MEDS: ENOXAPARIN 40 MG/0.4 ML SQ SCH (08:47)
[2020-08-09] MEDS: ASPIRIN EC 81 MG TAB PO SCH (08:47)
--- NOTE | 2020-08-09 08:52 | RAD REPORT ---
EXAM DESCRIPTION: RAD - Chest Single View - 08/09/2020 1:20 am CLINICAL HISTORY: COUGH Chest pain. COMPARISON: Chest Single View dated 04/06/2020; Chest Single View dated 08/14/2019; Chest Single View dated 04/12/2019; Chest Single View dated 02/05/2019 FINDINGS: Portable technique limits examination quality. The lungs are grossly clear. The heart is mildly prominent in size. No displaced fractures. IMPRESSION: No acute intrathoracic process suspected.
--- NOTE | 2020-08-09 13:00 | P.CNS ---
Date of Consult: 08/09/20 Reason for Consult: Respiratory failure from cruz virus Primary Care Provider: none Chief Complaint: COVID pneumonia History of Present Illness: Patient is 35 years of age history of hypertension and hypothyroidism admitted from the emergency room complaining of worsening dyspnea worse of the past 3 days she has been diagnosed for about a week ago patient was hypoxic she is doing a little better apart from chronic coughing spells Allergies erythromycin base Allergy (Verified 02/05/19 17:45) unknown Penicillins Allergy (Verified 02/05/19 17:45) Unknown Sulfa (Sulfonamide Antibiotics) Allergy (Verified 02/05/19 17:45) Unknown sulfamethoxazole [From Bactrim] Allergy (Verified 02/05/19 17:45) Unknown trimethoprim [From Bactrim] Allergy (Verified 02/05/19 17:45) Unknown Home Medications: NK [No Home Meds] 08/09/20 - Past Medical/Surgical History Diabetic: No -: hypothyroidism -: anxiety -: depression -: bipolar -: Asthma -: Anxiety -: c section -: tubal ligation -: tonsillectomy -: Adenoidectomy Psychosocial/ Personal History: 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 - Family History Father Medical History: Other (see notes) Notes: drug addict Mother Medical History: Heart disease, Hypertension, Lung disease, Diabetes, Stroke, Other (see notes) Notes: copd,chf - Social History Smoking Status: Current some day smoker Alcohol use: No CD- Drugs: No Caffeine use: Yes Place of Residence: Home Review of Systems General: Weakness Respiratory: Cough, Shortness of Breath Physical Examination Temp Pulse Resp BP Pulse Ox 96.9 F 87 19 126/86 90 L 08/09/20 12:00 08/09/20 12:00 08/09/20 12:00 08/09/20 12:00 08/09/20 12:00 Laboratory Data (last 24 hrs) 08/08/20 23:22: WBC 6.60, Hgb 10.7 L, Hct 33.4 L, Plt Count 174 08/08/20 23:22: Sodium 144, Potassium 3.6, BUN 12, Creatinine 1.17, Glucose 83, Magnesium 2.6 H, Total Bilirubin 0.4, AST 60 H, ALT 51, Alkaline Phosphatase ND - Problems (1) Acute respiratory failure due to severe acute respiratory syndrome coronavirus 2 (SARS-CoV-2) infection Current Visit: Yes Status: Acute Plan: Patient is 35 years of age admitted with respiratory failure chest x-ray looks fairly unremarkable mild hypoxemia stable for discharge on oxygen 4 L a min continue with steroids 20 mg twice a day for a week and then taper labs reviewed mildly anemic continue with ivermectin follow-up with me in 2 weeks consider an inhaler for persistent cough
--- NOTE | 2020-08-09 14:36 | P.PN ---
Date of Service: 08/09/20 Acute resp failure with hypoxia due to COVID-19 pneumonia morbid obesity Pt seen this morning. Feels same as at time of admission, no signficant improvement. went from 2L to 4L NC, SpO2: ~90%, dyspnea with exertion. minimal appetite, no n/v/d Gen: NAD, HEENT:: normal conjunctiva. Pulm: mild labored on 4L NC bilateral crackles, no wheeze. CV: RRR, no murmur. abd: soft, NTND, Ext: no edema will continue current treatment today repeat labs in AM monitor overnight if remains stable and not requiring more O2, possible dc in ~24hrs
[2020-08-09] MEDS ORDERED: ATORVASTATIN 40 MG TAB PO SCH (21:00)
[2020-08-10 05:03] LABS: Alkaline Phosphatase ND U/L (45-117)
[2020-08-10 05:04] LABS: Absolute Lymphocytes (CBC) 0.7 K/uL (0.7-4.9); Basophils % 0.4 % (0-1.3); Hematocrit 34.3 % (36.0-45.0); MPV 11.1 fL (7.6-11.3); RBC Red Blood Cell Count 3.64 M/uL (3.86-4.86)
[2020-08-10] MEDS: LEVOTHYROXINE SOD 0.075 MG TAB PO SCH (05:48)
[2020-08-10 06:14] LABS: ALT/SGPT 46 U/L (12-78); AST/SGOT 46 U/L (15-37); Albumin 3.8 g/dL (3.4-5.0); BUN Blood Urea Nitrogen 12 mg/dL (7-18); Bicarbonate 31 mmol/L (21-32); Bilirubin Total 0.2 mg/dL (0.2-1.0); C-Reactive Protein 7.16 mg/L (<3.00); Ferritin 16.9 ng/mL (8-388); Glucose Level 143 mg/dL (74-106); HDL Cholesterol 41 mg/dL (40-60); LDL Cholesterol, Calculated 320 (<130); Magnesium 2.8 mg/dL (1.8-2.4); Protein, Total 7.3 g/dL (6.4-8.2); Sodium Level 141 mmol/L (136-145)
[2020-08-10] MEDS: ZINC SULFATE 220 MG CAP PO SCH (09:50)
[2020-08-10] MEDS: THIAMINE HCL 100 MG TABLET PO SCH (09:50)
[2020-08-10] MEDS: BENZONATATE 100 MG CAP PO PRN (09:50)
[2020-08-10] MEDS: ASPIRIN EC 81 MG TAB PO SCH (09:50)
[2020-08-10] MEDS: ENOXAPARIN 40 MG/0.4 ML SQ SCH (09:50)
[2020-08-10] MEDS: VITAMIN D 1000 UNIT TAB PO SCH (09:50)
[2020-08-10] MEDS: ASCORBIC ACID 500 MG TABLET PO SCH ×2 (09:50→12:32)
[2020-08-10] MEDS: METHYLPREDNISOLONE 40 MG INJ IV SCH (09:50)
[2020-08-10 12:13] LABS: Blood Morphology Comment NOT SEEN (NOT SEEN); Platelet Estimate ADEQ; White Blood Cell Scan OK (OK)
[2020-08-10 13:10] VITALS: BP 118/71; TEMP 97.3
[2020-08-10 14:14] VITALS: O2SAT 90
--- NOTE | 2020-08-10 21:57 | P.DS ---
Admission Date: 08/09/20 Discharge Date: 08/10/20 Primary Care Provider: none Disposition: ROUTINE DISCHARGE Discharge Condition: GOOD Reason for Admission: COVID pneumonia Consultations: Daisy Lugo Procedures: CXR (08/09): lungs are grossly clear, heart is mildly prominent in size. No displaced fractures. Problem List: acute respiratory failure with hypoxia secondary to COVID-19 pneumonia Hypothyroidism Hypertension Depression/anxiety morbidly obese Brief History of Present Illness: 35-year-old female with history of hypothyroidism, hypertension presents emergency department for shortness of breath, malaise. Patient reports increasing shortness of breath over the course of the last 3 days. Patient evaluated in the emergency department found to be positive for COVID, patient satting in the high 80s on room air. Also noted TSH 69.5 free T4 0.15, patient reports previously being on levothyroxine 150 mcg but has not taken last few months. CRP, ferritin, pro calcitonin levels pending. White blood cell count 6.6. ED provider wishes to admit for further evaluation and management Hospital Course: She was treated with steroids, vitamins, and other vitamin supplements and had significant improvement. She qualified for home O2 and she was discharged to follow up with Dr. Lugo in ~1 week. Vital Signs/Physical Exam: Physical Exam General: Alert, In no apparent distress; morbidly obese HEENT: Atraumatic, PERRLA, Mucous membr. moist/pink Neck: Supple, 2+ carotid pulse no bruit, No LAD Respiratory: Clear to auscultation bilaterally, diminished at bases bilaterally Cardiovascular: Regular rate/rhythm, Normal S1 S2 Gastrointestinal: Normal bowel sounds, No tenderness Musculoskeletal: No tenderness Integumentary: No rashes Neurological: Normal speech, Normal strength at 5/5 x4 extr, Normal tone, Normal affect Temp Pulse Resp BP Pulse Ox 97.3 F 67 16 118/71 95 08/10/20 12:00 08/10/20 12:00 08/10/20 12:00 08/10/20 12:00 08/10/20 12:00 Laboratory Data at Discharge: WBC 11.20 K/uL (4.3-10.9) H D 08/10/20 04:15 Hgb 10.9 g/dL (12.0-15.0) L 08/10/20 04:15 Hct 34.3 % (36.0-45.0) L 08/10/20 04:15 Plt Count 204 K/uL (152-406) 08/10/20 04:15 Sodium 141 mmol/L (136-145) 08/10/20 04:15 Potassium 4.0 mmol/L (3.5-5.1) 08/10/20 04:15 BUN 12 mg/dL (7-18) 08/10/20 04:15 Creatinine 1.08 mg/dL (0.55-1.3) 08/10/20 04:15 Glucose 143 mg/dL (74-106) H 08/10/20 04:15 Magnesium 2.8 mg/dL (1.8-2.4) H 08/10/20 04:15 Total Bilirubin 0.2 mg/dL (0.2-1.0) 08/10/20 04:15 AST 46 U/L (15-37) H 08/10/20 04:15 ALT 46 U/L (12-78) 08/10/20 04:15 Alkaline Phosphatase ND 08/10/20 04:15 Triglycerides 68 mg/dL (<150) 08/10/20 04:15 Cholesterol 375 mg/dL (<200) H 08/10/20 04:15 HDL Cholesterol 41 mg/dL (40-60) 08/10/20 04:15 Cholesterol/HDL Ratio 9.15 08/10/20 04:15 Home Medications: Apixaban [Eliquis] 5 mg PO BID 30 Days #60 tablet 08/10/20 Ascorbic Acid [Vitamin C*] 500 mg PO QID 30 Days tablet 08/10/20 Cholecalciferol (Vitamin D3) [Vitamin D 1000 Iu Tab*] 4,000 unit PO DAILY 30 Days tab 08/10/20 Levothyroxine Sodium [Synthroid] 150 mcg PO DAILY 30 Days #30 tablet 08/10/20 Thiamine HCl [Vitamin B-1*] 200 mg PO DAILY 30 Days #30 tablet 08/10/20 Zinc Sulfate [Zinc Sulfate*] 220 mg PO DAILY 30 Days cap 08/10/20 predniSONE [Prednisone] 20 mg PO SEECOM #21 tablet 08/10/20 New Medications: Apixaban [Eliquis] 5 mg PO BID 30 Days #60 tablet predniSONE [Prednisone] 20 mg PO SEECOM #21 tablet Levothyroxine Sodium [Synthroid] 150 mcg PO DAILY 30 Days #30 tablet Thiamine HCl [Vitamin B-1*] 200 mg PO DAILY 30 Days #30 tablet Ascorbic Acid [Vitamin C*] 500 mg PO QID 30 Days tablet Cholecalciferol (Vitamin D3) [Vitamin D 1000 Iu Tab*] 4,000 unit PO DAILY 30 Days tab Zinc Sulfate [Zinc Sulfate*] 220 mg PO DAILY 30 Days cap Physician Discharge Instructions: You were found to have COVID-19 pneumonia. You are discharged home with prednisone for 2 weeks, eliquis (blood thinner) for 1 month, and vitamins. You are also hypothyroid (as you know), and prescription for levothyroxine was sent for you as well. If unable to get the eliquis, please take aspirin 81mg once a day instead. You were doing well on 2 to 3 liters of oxygen. Please follow up with Dr. Lugo (pulmonology) in 1 week. Call his office when you get home to schedule the appointment. 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
== END 2020-08-10 17:44 | disposition home or self-care (01) | DRG 177 ==
LOC: ER 19:58 → ERHOLD 08-09 01:57 → 4TH 08-09 02:10
PROVIDERS: ADMIT Hospitalist; ATTEND Hospitalist
DX: U07.1 COVID-19 (principal); J12.82 Pneumonia due to coronavirus disease 2019; J96.01 Acute respiratory failure with hypoxia; Z68.44 Body mass index [BMI] 60.0-69.9, adult; E66.01 Morbid (severe) obesity due to excess calories; I10 Essential (primary) hypertension; F17.210 Nicotine dependence, cigarettes, uncomplicated; F41.9 Anxiety disorder, unspecified; F32.9 Major depressive disorder, single episode, unspecified; E03.9 Hypothyroidism, unspecified; Z98.51 Tubal ligation status; Z88.1 Allergy status to other antibiotic agents; Z88.0 Allergy status to penicillin; Z79.52 Long term (current) use of systemic steroids; Z79.899 Other long term (current) drug therapy; Z79.01 Long term (current) use of anticoagulants; Z79.890 Hormone replacement therapy
CPT/HCPCS: 36415; 71045; 80048; 80053; 80061; 80076; 82728; 83036; 83735; 84145; 84439; 84443; 84481; 85025; 86140; 93005; 96374; 99285; J1650; J2920; J2930; U0003

== ENCOUNTER 2020-08-15 22:09 | Emergency (ER) | payer SELFPAY ==
--- OUTSIDE RECORDS SUMMARY | 2020-08-15 22:11 | XMS REPORT | Continuity of Care Document ---
:1985 Author Organization [facility] Address [address] [place] [address] Dr. Marshall [address] [place] [id number] Care Team Providers Name Role Phone Unavailable Unavailable Unavailable Problems This patient has no known problems. Allergies, Adverse Reactions, Alerts This patient has no known allergies or adverse reactions. Medications This patient has no known medications. Procedures This patient has no known procedures. Results This patient has no known results.
[2020-08-15 22:58] LABS: Absolute Lymphocytes (CBC) 0.4 K/uL (0.7-4.9); Basophils % 0.6 % (0-1.3); Hematocrit 31.1 % (36.0-45.0); Lymphocytes % 4.3 % (15.3-44.8); MPV 10.2 fL (7.6-11.3); RBC Red Blood Cell Count 3.36 M/uL (3.86-4.86)
[2020-08-15 23:31] LABS: Protime INR 0.99
[2020-08-15 23:44] LABS: ALT/SGPT 54 U/L (12-78); AST/SGOT 46 U/L (15-37); Albumin 3.8 g/dL (3.4-5.0); Alkaline Phosphatase 58 U/L (45-117); BUN Blood Urea Nitrogen 18 mg/dL (7-18); Bicarbonate 31 mmol/L (21-32); Bilirubin Direct < 0.1 mg/dL (0-0.2); Bilirubin Total 0.2 mg/dL (0.2-1.0); Glucose Level 129 mg/dL (74-106); Magnesium 2.7 mg/dL (1.8-2.4); NT PRO-BNP 24 pg/mL (<125); Protein, Total 7.5 g/dL (6.4-8.2); Sodium Level 142 mmol/L (136-145); Troponin (Emerg Dept Use Only) < 0.02 ng/mL (0.0-0.045)
--- NOTE | 2020-08-16 00:08 | ER ---
Nurse's Notes [facility] Name: Rachael Knox Age: 35 yrs Sex: Female : 1985 Arrival Date: 08/15/2020 Time: 22:11 Bed 7 Private MD: Diagnosis: Pneumonia due to SARS-associated coronavirus;Palpitations;Anxiety disorder, unspecified Presentation: 08/15 22:11 Chief complaint: EMS states: SHE INITIALLY CALLED IN FOR CHEST PAIN, BUT WHEN WE GOT rv THERE, SHE SAID THAT SHE FEELS LIKE HER HEART RATE IS INCREASING, IT WAS ON THE 90s WHEN WE CHECKED, SHE SAID SHE HAS HISTORY OF ANXIETY, NO CHEST PAIN, DIAGNOSED WITH COVID ON THE , AND SHE WAS 93% ON HOME OXYGEN, SHE DROPPED TO 84% ON ROOM AIR. Coronavirus screen: Client denies travel out of the [place] in the last 14 days. cough unrelated to allergies, difficulty breathing, shortness of breath, Client presents with at least one sign or symptom that may indicate coronavirus-19. Standard/surgical mask placed on the client. Provider contacted for isolation considerations. Client reports previous positive COVID test result. Date of collection: August 09, 2020. Ebola Screen: No symptoms or risks identified at this time. Initial Sepsis Screen: Does the patient meet any 2 criteria? No. Patient's initial sepsis screen is negative. Does the patient have a suspected source of infection? Yes: Productive cough/pneumonia. Risk Assessment: Do you want to hurt yourself or someone else? Patient reports no desire to harm self or others. Onset of symptoms was August 15, 2020. 22:11 Method Of Arrival: EMS: [facility] rv 22:11 Acuity: DARSHAN 3 rv Triage Assessment: 22:15 General: Appears comfortable, Behavior is calm, cooperative. Pain: Denies pain. EENT: rv No signs and/or symptoms were reported regarding the EENT system. Neuro: Level of Consciousness is awake, alert, obeys commands, Oriented to person, place, time, situation. Cardiovascular: Patient's skin is warm and dry. Respiratory: Airway is patent Respiratory effort is even, unlabored. Derm: Skin is intact. Historical: - Allergies: 22:15 Azithromycin; rv 22:15 Bactrim; rv 22:15 mycins; rv 22:15 PENICILLINS; rv 22:15 Sulfa (Sulfonamide Antibiotics); rv - PMHx: 22:15 Anemia; Anxiety; Asthma; Bipolar disorder; Hypertension; Hypothyroidism; rv - Immunization history:: Adult Immunizations up to date. - Social history:: Smoking status: unknown. Screenin:16 Abuse screen: Denies threats or abuse. Denies injuries from another. Nutritional rv screening: No deficits noted. Tuberculosis screening: No symptoms or risk factors identified. Fall Risk None identified. Vital Signs: 22:00 BP 131 / 76; Pulse 86; Resp 17; Pulse Ox 91% on 4 lpm NC; rv 22:11 BP 131 / 76; Pulse 83; Resp 20; Pulse Ox 91% on 4 lpm NC; rv 22:30 BP 130 / 72; Pulse 85; Resp 16; Pulse Ox 92% on 4 lpm NC; rv 23:00 BP 119 / 79; Pulse 74; Resp 16; Pulse Ox 92% on 4 lpm NC; rv 23:15 BP 126 / 94; Pulse 64; Resp 17; Pulse Ox 92% on 4 lpm NC; rv 08/16 00:09 BP 109 / 58; Pulse 73; Resp 15; Pulse Ox 95% on 4 lpm NC; rv ED Course: 08/15 22:11 Patient arrived in ED. rv 22:12 Cornell Moore PA is PHCP. jr8 22:12 Kang Gifford MD is Attending Physician. jr8 22:15 Triage completed. rv 22:16 Arm band placed on right wrist. Patient placed in the treatment room, on a stretcher, rv Patient notified of wait time. 22:16 Patient has correct armband on for positive identification. bus monitor on. Pulse rv ox on. NIBP on. 22:41 Luis Ferro RN is Primary Nurse. rv 22:42 Initial lab(s) drawn, by id, sent to lab. Inserted saline lock: 20 gauge in right rv antecubital area, using aseptic technique. Blood collected. 22:55 XRAY Chest (1 view) In Process Unspecified. EDMS 08/16 00:09 No provider procedures requiring assistance completed. IV discontinued, intact, rv bleeding controlled, No redness/swelling at site. Pressure dressing applied. 00:13 Notified Nurse Practitioner and/or Physician Cath Lab Radiology Technician of a critical lab result(s), bb Bands 12%. Cornell SANDERS notified. Administered Medications: No medications were administered Outcome: 00:07 Discharge ordered by MD. reno 00:09 Discharged to home ambulatory. rv 00:09 Condition: good 00:09 Discharge instructions given to patient, Instructed on discharge instructions, follow up and referral plans. medication usage, Demonstrated understanding of instructions, follow-up care, medications, Prescriptions given X 1. 00:17 Patient left the ED. rv Signatures: Dispatcher [employer] EDSarah Dee RN RN Cornell Scott PA PA jr8 Luis Ferro RN RN rv
--- NOTE | 2020-08-16 00:08 | EDPHYS ---
Physician Documentation [facility] Name: Rachael Knox Age: 35 yrs Sex: Female : 1985 Arrival Date: 08/15/2020 Time: 22:11 Bed 7 Private MD: ED Physician Kang Gifford HPI: 08/16 00:04 This 35 yrs old Female presents to ER via EMS with complaints of palpitations.jr8 00:04 The patient presents with a history of heart racing. Context: The symptoms occur at jr8 rest. Onset: The symptoms/episode began/occurred acutely, today. Duration: The patient or guardian reports a single episode, that is now resolved. Modifying factors: The symptoms are aggravated by anxiety, The symptoms are alleviated by rest. Associated signs and symptoms: Pertinent positives: SOB. Severity of symptoms: At their worst the symptoms were moderate in the emergency department the symptoms have resolved. The patient has not experienced similar symptoms in the past. The patient has been recently seen by a physician:. Patient recently seen and discharged with having COVID pneumonia. On home oxygen currently. Stated that she was anxious today and had palpitations which increased her shortness of breath. Currently better at this time after EMS brought her in . Historical: - Allergies: 08/15 22:15 Azithromycin; rv 22:15 Bactrim; rv 22:15 mycins; rv 22:15 PENICILLINS; rv 22:15 Sulfa (Sulfonamide Antibiotics); rv - PMHx: 22:15 Anemia; Anxiety; Asthma; Bipolar disorder; Hypertension; Hypothyroidism; rv - Immunization history:: Adult Immunizations up to date. - Social history:: Smoking status: unknown. ROS: 08/16 00:04 Eyes: Negative for injury, pain, redness, and discharge, ENT: Negative for injury, jr8 pain, and discharge, Neck: Negative for injury, pain, and swelling, Abdomen/GI: Negative for abdominal pain, nausea, vomiting, diarrhea, and constipation, Back: Negative for injury and pain, MS/Extremity: Negative for injury and deformity, Skin: Negative for injury, rash, and discoloration, Neuro: Negative for headache, weakness, numbness, tingling, and seizure. Cardiovascular: Positive for palpitations. Respiratory: Positive for shortness of breath. Exam: 00:04 Eyes: Pupils equal round and reactive to light, extra-ocular motions intact. Lids and jr8 lashes normal. Conjunctiva and sclera are non-icteric and not injected. Cornea within normal limits. Periorbital areas with no swelling, redness, or edema. ENT: Nares patent. No nasal discharge, no septal abnormalities noted. Tympanic membranes are normal and external auditory canals are clear. Oropharynx with no redness, swelling, or masses, exudates, or evidence of obstruction, uvula midline. Mucous membranes moist. Neck: Trachea midline, no thyromegaly or masses palpated, and no cervical lymphadenopathy. Supple, full range of motion without nuchal rigidity, or vertebral point tenderness. No Meningismus. Cardiovascular: Regular rate and rhythm with a normal S1 and S2. No gallops, murmurs, or rubs. Normal PMI, no JVD. No pulse deficits. Respiratory: Lungs have equal breath sounds bilaterally, clear to auscultation and percussion. No rales, rhonchi or wheezes noted. No increased work of breathing, no retractions or nasal flaring. Abdomen/GI: Soft, non-tender, with normal bowel sounds. No distension or tympany. No guarding or rebound. No evidence of tenderness throughout. Back: No spinal tenderness. No costovertebral tenderness. Full range of motion. Skin: Warm, dry with normal turgor. Normal color with no rashes, no lesions, and no evidence of cellulitis. MS/ Extremity: Pulses equal, no cyanosis. Neurovascular intact. Full, normal range of motion. Neuro: Awake and alert, GCS 15, oriented to person, place, time, and situation. Cranial nerves II-XII grossly intact. Motor strength 5/5 in all extremities. Sensory grossly intact. Cerebellar exam normal. Normal gait. Vital Signs: 08/15 22:00 BP 131 / 76; Pulse 86; Resp 17; Pulse Ox 91% on 4 lpm NC; rv 22:11 BP 131 / 76; Pulse 83; Resp 20; Pulse Ox 91% on 4 lpm NC; rv 22:30 BP 130 / 72; Pulse 85; Resp 16; Pulse Ox 92% on 4 lpm NC; rv 23:00 BP 119 / 79; Pulse 74; Resp 16; Pulse Ox 92% on 4 lpm NC; rv 23:15 BP 126 / 94; Pulse 64; Resp 17; Pulse Ox 92% on 4 lpm NC; rv 08/16 00:09 BP 109 / 58; Pulse 73; Resp 15; Pulse Ox 95% on 4 lpm NC; rv MDM: 08/15 22:17 Patient medically screened. jr8 08/16 00:04 Data reviewed: vital signs, nurses notes, lab test result(s), EKG, radiologic studies, jr8 plain films. Data interpreted: Pulse oximetry: on 2L(s) per nasal canula, is 94 %. Interpretation: acceptable. Counseling: I had a detailed discussion with the patient and/or guardian regarding: the historical points, exam findings, and any diagnostic results supporting the discharge/admit diagnosis, lab results, radiology results, the need for outpatient follow up, a family practitioner, to return to the emergency department if symptoms worsen or persist or if there are any questions or concerns that arise at home. ED course: Patient in no acute distress at this time. No increase work of breathing. Currently on home oxygen. No cardiac findings. Will d/c home to f/u with PCP. Knows to come back if worse . 08/15 22:41 Order name: Basic Metabolic Panel rv 08/15 22:42 Order name: CBC with Diff rv 08/15 22:42 Order name: LFT's rv 08/15 22:42 Order name: Magnesium rv 08/15 22:42 Order name: NT PRO-BNP; Complete Time: 00:02 rv 08/15 22:42 Order name: PT-INR; Complete Time: 23:33 rv 08/15 22:42 Order name: Troponin (emerg Dept Use Only); Complete Time: 00:02 rv 08/15 22:42 Order name: XRAY Chest (1 view) rv 08/15 22:42 Order name: EKG; Complete Time: 22:42 rv 08/15 22:42 Order name: Basic Metabolic Panel; Complete Time: 00:02 EDMS 08/15 22:42 Order name: CBC with Automated Diff; Complete Time: 00:12 EDID 08/15 22:42 Order name: Liver (Hepatic) Function; Complete Time: 00:02 EDMS 08/15 22:42 Order name: Magnesium; Complete Time: 00:02 EDMS 08/15 23:29 Order name: Manual Differential; Complete Time: 00:12 EDID 08/15 22:42 Order name: Cardiac monitoring; Complete Time: 22:42 rv 08/15 22:42 Order name: EKG - Nurse/Tech; Complete Time: 22:42 rv 08/15 22:42 Order name: IV Saline Lock; Complete Time: :42 rv 08/15 22:42 Order name: Labs collected and sent; Complete Time: 22:42 rv 08/15 22:42 Order name: O2 Per Protocol; Complete Time: :42 rv 08/15 22:42 Order name: O2 Sat Monitoring; Complete Time: 22:42 rv Administered Medications: No medications were administered Disposition: 07:56 Co-signature as Attending Physician, Kang Gifford MD I agree with the assessment and ze plan of care. Disposition: 08/16/20 00:07 Discharged to Home. Impression: Pneumonia due to SARS-associated coronavirus, Palpitations, Anxiety disorder, unspecified. - Condition is Stable. - Discharge Instructions: Panic Attacks, Palpitations, Severe Acute Respiratory Syndrome (SARS). - Prescriptions for Hydroxyzine HCl 50 mg Oral Tablet - take 1 tablet by ORAL route every 8 hours As needed; 20 tablet. - Medication Reconciliation Form, Thank You Letter, Antibiotic Education, Prescription Opioid Use form. - Follow up: Private Physician; When: 2 - 3 days; Reason: Recheck today's complaints, Continuance of care, Re-evaluation by your physician. - Problem is new. - Symptoms have improved. Signatures: Dispatcher [employer] Kang Singleton MD MD cha Roszak, Josh, PA PA jr8 Luis Ferro RN RN rv Corrections: (The following items were deleted from the chart) 00:17 00:07 08/16/2020 00:07 Discharged to Home. Impression: Pneumonia due to SARS-associated rv coronavirus; Palpitations; Anxiety disorder, unspecified. Condition is Stable. Forms are Medication Reconciliation Form, Thank You Letter, Antibiotic Education, Prescription Opioid Use. Follow up: Private Physician; When: 2 - 3 days; Reason: Recheck today's complaints, Continuance of care, Re-evaluation by your physician. Problem is new. Symptoms have improved. jr8
[2020-08-16 00:11] LABS: Blood Morphology Comment NOT SEEN (NOT SEEN); Platelet Estimate ADEQ
[2020-08-16 04:35] VITALS: BP 109/58; O2SAT 95
--- NOTE | 2020-08-16 07:19 | EKG ---
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
--- NOTE | 2020-08-16 08:10 | RAD REPORT ---
EXAM DESCRIPTION: Rosario Single View3 10:57 pm CLINICAL HISTORY: Palpitations COMPARISON: August 09, 2020 FINDINGS: Moderate bilateral patchy lung opacities. Heart is borderline enlarged IMPRESSION: Moderate bilateral patchy lung opacities may represent pneumonia or pulmonary edema
== END 2020-08-16 00:17 | disposition home or self-care (01) ==
LOC: ER 22:09
DX: U07.1 COVID-19 (principal); J12.82 Pneumonia due to coronavirus disease 2019; F41.9 Anxiety disorder, unspecified; I10 Essential (primary) hypertension; Z88.0 Allergy status to penicillin; Z88.1 Allergy status to other antibiotic agents; Z88.2 Allergy status to sulfonamides; Z88.3 Allergy status to other anti-infective agents
CPT/HCPCS: 36415; 71045; 80048; 80076; 83735; 83880; 84484; 85025; 85610; 93005; 99284

== ENCOUNTER 2020-10-26 15:37 | Emergency (ER) | payer SELFPAY ==
--- OUTSIDE RECORDS SUMMARY | 2020-10-26 15:39 | XMS REPORT | Continuity of Care Document ---
:[address] [facility] t Address [address] [place] [address] Dr. Marshall [address] [place] [id number] Care Team Providers Name Role Phone Unavailable Unavailable Unavailable Problems This patient has no known problems. Allergies, Adverse Reactions, Alerts This patient has no known allergies or adverse reactions. Medications This patient has no known medications. Procedures This patient has no known procedures. Results This patient has no known results.
[2020-10-26] MEDS ORDERED: LORazepam 2 MG/ML VIAL ONE (17:15)
[2020-10-26 17:22] LABS: Absolute Lymphocytes (CBC) 2.4 K/uL (0.7-4.9); Basophils % 0.2 % (0-1.3); Hematocrit 37.5 % (36.0-45.0); Lymphocytes % 22.9 % (15.3-44.8); MPV 8.8 fL (7.6-11.3); RBC Red Blood Cell Count 4.13 M/uL (3.86-4.86)
--- NOTE | 2020-10-26 17:26 | RAD REPORT ---
EXAM DESCRIPTION: Rosario Single View10/26/2020 5:13 pm CLINICAL HISTORY: Chest pain COMPARISON: July 2020 FINDINGS: The lungs appear clear of acute infiltrate. The heart is normal size IMPRESSION: No acute abnormalities displayed
[2020-10-26 17:32] LABS: Protime INR 0.95
[2020-10-26 17:44] LABS: ALT/SGPT 21 U/L (12-78); AST/SGOT 17 U/L (15-37); Albumin 3.9 g/dL (3.4-5.0); Alkaline Phosphatase 44 U/L (45-117); BUN Blood Urea Nitrogen 12 mg/dL (7-18); Bicarbonate 27 mmol/L (21-32); Bilirubin Direct < 0.1 mg/dL (0-0.2); Bilirubin Total 0.2 mg/dL (0.2-1.0); Glucose Level 87 mg/dL (74-106); Magnesium 2.4 mg/dL (1.8-2.4); Protein, Total 7.7 g/dL (6.4-8.2); Sodium Level 141 mmol/L (136-145); Troponin (Emerg Dept Use Only) < 0.02 ng/mL (0.0-0.045)
[2020-10-26 17:46] LABS: NT PRO-BNP < 5 pg/mL (<125)
--- NOTE | 2020-10-26 18:40 | ER ---
Nurse's Notes [facility] Name: Rachael Knox Age: 35 yrs Sex: Female : 1985 Arrival Date: 10/26/2020 Time: 15:37 Bed 13 Private MD: Diagnosis: Anxiety disorder, unspecified;Chest pain, unspecified Presentation: 10/26 15:44 Chief complaint: Patient states: "I have been having panic attacks today. I normally jd3 take Ativan for them, but I have not had the medicines in awhile due to them backing off.". Coronavirus screen: At this time, the client does not indicate any symptoms associated with coronavirus-19. Ebola Screen: Patient negative for fever greater than or equal to 101.5 degrees Fahrenheit, and additional compatible Ebola Virus Disease symptoms. Initial Sepsis Screen: Does the patient meet any 2 criteria? No. Patient's initial sepsis screen is negative. Does the patient have a suspected source of infection? No. Patient's initial sepsis screen is negative. Risk Assessment: Do you want to hurt yourself or someone else? Patient reports no desire to harm self or others. Onset of symptoms was October 26, 2020. 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 - Social history:: Smoking status: Patient reports the use of cigarette tobacco products, smokes one-half pack cigarettes per day. Screenin:49 Abuse screen: Denies threats or abuse. Nutritional screening: No deficits noted. vg1 Tuberculosis screening: No symptoms or risk factors identified. Fall Risk No fall in past 12 months (0 pts). No secondary diagnosis (0 pts). No IV (0 pts). Ambulatory Aid- None/Bed Rest/Nurse Assist (0 pts). Gait- Normal/Bed Rest/Wheelchair (0 pts) Mental Status- Oriented to own ability (0 pts). Total Brink Fall Scale indicates No Risk (0-24 pts). Assessment: 16:38 General: Appears in no apparent distress. comfortable, Behavior is calm, cooperative, vg1 crying. Pain: Denies pain. Complains of pain in anterior aspect of left upper chest Pain currently is 0 out of 10 on a pain scale. Neuro: Level of Consciousness is awake, alert, obeys commands, Oriented to person, place, time, situation, Denies headache. Cardiovascular: Patient's skin is warm and dry. Respiratory: Airway is patent Respiratory effort is even, unlabored. GI: Patient currently denies diarrhea, nausea, vomiting. : No signs and/or symptoms were reported regarding the genitourinary system. EENT: No signs and/or symptoms were reported regarding the EENT system. Derm: Skin is intact, is healthy with good turgor. Musculoskeletal: Circulation, motion, and sensation intact. 18:06 Reassessment: Patient appears in no apparent distress at this time. No changes from ph previously documented assessment. Patient and/or family updated on plan of care and expected duration. Pain level reassessed. Patient is alert, oriented x 3, equal unlabored respirations, skin warm/dry/pink. Vital Signs: 15:46 BP 129 / 83; Pulse 86; Resp 18 S; Temp 97.6(TE); Pulse Ox 96% on R/A; Weight 152.41 kg j (R); Height 5 ft. 5 in. (165.10 cm) (R); Pain 0/10; 16:49 BP 123 / 96; Pulse 88; Resp 18; Pulse Ox 97% on R/A; vg1 18:03 BP 110 / 67; Pulse 65; Resp 18; Pulse Ox 100% on R/A; ph 15:46 Body Mass Index 55.91 (152.41 kg, 165.10 cm) [facility] ED Course: 15:37 Patient arrived in ED. ds1 15:45 Triage completed. jd3 15:48 Arm band placed on. jd3 16:27 Vernon Childs PA is PHCP. jmm 16:27 Rajan Samuel MD is Attending Physician. [facility] 16:28 Shasta Rivera, RN is Primary Nurse. vg1 16:46 EKG done, by ED staff, reviewed by Rajan Samuel MD. vg1 16:49 Patient has correct armband on for positive identification. Placed in gown. Bed in low vg1 position. Call light in reach. Side rails up X 1. phototypesetting equipment monitor on. Pulse ox on. NIBP on. 17:02 Initial lab(s) drawn, by me, sent to lab. Inserted saline lock: 20 gauge in right vg1 antecubital area, using aseptic technique. Blood collected. 17:13 XRAY Chest (1 view) In Process Unspecified. EDMS 19:04 No provider procedures requiring assistance completed. IV discontinued, intact, vg1 bleeding controlled, No redness/swelling at site. Pressure dressing applied. Administered Medications: 17:05 Drug: Ativan (LORazepam) 1 mg Route: IVP; Site: right antecubital; vg1 19:04 Follow up: Response: No adverse reaction vg1 Outcome: 18:40 Discharge ordered by . [facility] 19:04 Discharged to home ambulatory. vg1 19:04 Condition: stable 19:04 Discharge instructions given to patient, Instructed on discharge instructions, follow up and referral plans. medication usage, Demonstrated understanding of instructions, follow-up care, medications, Prescriptions given X 1. 19:05 Patient left the ED. vg1 Signatures: Dispatcher [employer] EDMS Vernon Childs PA PA [facility] Fern Mckeon ds1 Peggy Liriano RN RN Neftali De Anda RN RN jShasta Yeung, RN RN vg1 Corrections: (The following items were deleted from the chart) 18:07 18:03 Reassessment: Patient appears in no apparent distress at this time. Pt resting ph with eyes closed ph
--- NOTE | 2020-10-26 18:40 | EDPHYS ---
Physician Documentation [facility] Name: Rachael Knox Age: 35 yrs Sex: Female : 1985 Arrival Date: 10/26/2020 Time: 15:37 Bed 13 Private MD: ED Physician Rajan Samuel HPI: 10/26 16:50 This 35 yrs old Female presents to ER via Ambulatory with complaints of Chest jmm Discomfort. 16:50 The patient or guardian reports chest pain that is located primarily in the substernal jmm area. The pain does not radiate. Associated signs and symptoms: Pertinent positives: anxiety. Duration: The patient or guardian reports a single episode, that is still ongoing. This is a 35 year old female with a history of htn, anxiety, bipolar that presents to the ED with complaints of chest discomfort beginning today. States having multiple panic attacks today due to increased stress. . 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 - Social history:: Smoking status: Patient reports the use of cigarette tobacco products, smokes one-half pack cigarettes per day. ROS: 16:50 Constitutional: Negative for fever, chills, and weight loss. jmm 16:50 Cardiovascular: Positive for chest pain. 16:50 Psych: Positive for anxiety. 16:50 All other systems are negative. Exam: 16:50 Constitutional: This is a well developed, well nourished patient who is awake, alert, jmm and in no acute distress. Head/Face: atraumatic. Eyes: EOMI, no conjunctival erythema appreciated ENT: Moist Mucus Membranes Neck: Trachea midline, Supple Chest/axilla: Normal chest wall appearance and motion. Cardiovascular: Regular rate and rhythm. No edema appreciated Respiratory: Normal respirations, no respiratory distress appreciated Abdomen/GI: Non distended, soft Back: Normal ROM Skin: General appearance color normal MS/ Extremity: Moves all extremities, no obvious deformities appreciated, no edema noted to the lower extremities Neuro: Awake and alert, normal gait Psych: Behavior is normal, Mood is normal, Patient is cooperative and pleasant Vital Signs: 15:46 BP 129 / 83; Pulse 86; Resp 18 S; Temp 97.6(TE); Pulse Ox 96% on R/A; Weight 152.41 kg jd3 (R); Height 5 ft. 5 in. (165.10 cm) (R); Pain 0/10; 16:49 BP 123 / 96; Pulse 88; Resp 18; Pulse Ox 97% on R/A; vg1 18:03 BP 110 / 67; Pulse 65; Resp 18; Pulse Ox 100% on R/A; ph 15:46 Body Mass Index 55.91 (152.41 kg, 165.10 cm) jd3 MDM: 16:34 Patient medically screened. [facility] 18:38 Data reviewed: vital signs, nurses notes. Counseling: I had a detailed discussion with [facility] the patient and/or guardian regarding: the historical points, exam findings, and any diagnostic results supporting the discharge/admit diagnosis, the need for outpatient follow up, to return to the emergency department if symptoms worsen or persist or if there are any questions or concerns that arise at home. 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 I do not suspect ACS. Patient advised to follow up with pcp and otherwise given strict return precautions. patient understood and agrees with the plan of care. . 10/26 16:49 Order name: Basic Metabolic Panel [facility] 10/26 16:49 Order name: CBC with Diff [facility] 10/26 16:49 Order name: LFT's [facility] 10/26 16:49 Order name: Magnesium; Complete Time: 18:29 [facility] 10/26 16:49 Order name: NT PRO-BNP; Complete Time: 18:29 [facility] 10/26 16:49 Order name: PT-INR; Complete Time: 18:29 [facility] 10/26 16:49 Order name: Troponin (emerg Dept Use Only); Complete Time: 18:29 [facility] 10/26 16:49 Order name: XRAY Chest (1 view); Complete Time: 17:27 [facility] 10/26 16:49 Order name: EKG; Complete Time: 16:49 [facility] 10/26 16:49 Order name: D-Dimer; Complete Time: 18:29 [facility] 10/26 16:49 Order name: Basic Metabolic Panel; Complete Time: 18:29 [facility] 10/26 16:49 Order name: CBC with Automated Diff; Complete Time: 17:27 [facility] 10/26 16:49 Order name: Liver (Hepatic) Function; Complete Time: 18:29 [facility] 10/26 16:49 Order name: Cardiac monitoring; Complete Time: 16:51 [facility] 10/26 16:49 Order name: EKG - Nurse/Tech; Complete Time: 16:51 [facility] 10/26 16:49 Order name: IV Saline Lock; Complete Time: 17:07 [facility] 10/26 16:49 Order name: Labs collected and sent; Complete Time: 17:07 [facility] 10/26 16:49 Order name: O2 Per Protocol; Complete Time: 16:51 [facility] 10/26 16:49 Order name: O2 Sat Monitoring; Complete Time: 16:51 [facility] Administered Medications: 17:05 Drug: Ativan (LORazepam) 1 mg Route: IVP; Site: right antecubital; vg1 19:04 Follow up: Response: No adverse reaction vg1 Disposition: 10/27 08:05 Co-signature as Attending Physician, Rajan Samuel MD I agree with the assessment and kdr plan of care. Disposition: 10/26/20 18:40 Discharged to Home. Impression: Anxiety disorder, unspecified, Chest pain, unspecified. - Condition is Stable. - Discharge Instructions: Panic Attacks, Nonspecific Chest Pain. - Prescriptions for Ativan 1 mg Oral Tablet - take 1 tablet by ORAL route every 8 hours As needed; 20 tablet. - Medication Reconciliation Form, Thank You Letter, Antibiotic Education, Prescription Opioid Use form. - Follow up: Private Physician; When: 2 - 3 days; Reason: Recheck today's complaints, Continuance of care, Re-evaluation by your physician. Signatures: Dispatcher [employer] Rajan Claros MD MD kdr Mickail, Joel, PA PA jmm Davies, Jonathon, RN RN jd3 Garcia, Victoria, RN RN vg1 Corrections: (The following items were deleted from the chart) 10/26 19:05 18:40 10/26/2020 18:40 Discharged to Home. Impression: Anxiety disorder, unspecified; vg1 Chest pain, unspecified. Condition is Stable. Forms are Medication Reconciliation Form, Thank You Letter, Antibiotic Education, Prescription Opioid Use. Follow up: Private Physician; When: 2 - 3 days; Reason: Recheck today's complaints, Continuance of care, Re-evaluation by your physician. teresita
[2020-10-26 19:27] VITALS: TEMP 97.6
[2020-10-26 19:30] VITALS: BP 110/67; O2SAT 100
== END 2020-10-26 19:05 | disposition home or self-care (01) ==
LOC: ER 15:37
DX: R07.9 Chest pain, unspecified (principal); F41.9 Anxiety disorder, unspecified; F17.210 Nicotine dependence, cigarettes, uncomplicated; J45.909 Unspecified asthma, uncomplicated; F31.9 Bipolar disorder, unspecified; I10 Essential (primary) hypertension; E03.9 Hypothyroidism, unspecified
CPT/HCPCS: 36415; 71045; 80048; 80076; 83735; 83880; 84484; 85025; 85379; 85610; 93005; 96374; 99284

== ENCOUNTER 2020-11-10 17:00 | Emergency (ER) | payer SELFPAY ==
--- OUTSIDE RECORDS SUMMARY | 2020-11-10 17:02 | XMS REPORT | Continuity of Care Document ---
:1985 Author Organization [facility] t Address [address] [place] [address] Dr. Marshall [address] [place] [id number] Care Team Providers Name Role Phone Unavailable Unavailable Unavailable Problems This patient has no known problems. Allergies, Adverse Reactions, Alerts This patient has no known allergies or adverse reactions. Medications This patient has no known medications. Procedures This patient has no known procedures. Results This patient has no known results.
--- NOTE | 2020-11-10 17:56 | ER ---
Nurse's Notes [facility] Name: Rachael Knox Age: 35 yrs Sex: Female : 1985 Arrival Date: 11/10/2020 Time: 17:08 Bed 13 Private MD: Diagnosis: Pain in left leg Presentation: 11/10 17:25 Chief complaint: Pain behind left knee that radiates to foot since this morning. hb Coronavirus screen: At this time, the client does not indicate any symptoms associated with coronavirus-19. Ebola Screen: No symptoms or risks identified at this time. Initial Sepsis Screen: Does the patient meet any 2 criteria? No. Patient's initial sepsis screen is negative. Does the patient have a suspected source of infection? No. Patient's initial sepsis screen is negative. Risk Assessment: Do you want to hurt yourself or someone else? Patient reports no desire to harm self or others. Onset of symptoms was November 10, 2020. 17:25 Method Of Arrival: Ambulatory hb 17:25 Acuity: DARSHAN 4 hb Historical: - Allergies: 17:26 Azithromycin; hb 17:26 Bactrim; hb 17:26 mycins; hb 17:26 PENICILLINS; hb 17:26 Sulfa (Sulfonamide Antibiotics); hb - PMHx: 17:26 Anemia; Anxiety; Asthma; Bipolar disorder; Hypertension; Hypothyroidism; hb - Immunization history:: Adult Immunizations up to date. - Social history:: Smoking status: Patient denies any tobacco usage or history of. Screenin:31 Abuse screen: Denies threats or abuse. Nutritional screening: No deficits noted. vg1 Tuberculosis screening: No symptoms or risk factors identified. Fall Risk No fall in past 12 months (0 pts). No secondary diagnosis (0 pts). No IV (0 pts). Ambulatory Aid- None/Bed Rest/Nurse Assist (0 pts). Gait- Impaired (20 pts.). Mental Status- Oriented to own ability (0 pts). Total Brink Fall Scale indicates No Risk (0-24 pts). Assessment: 17:29 General: Appears in no apparent distress. comfortable, Behavior is calm, cooperative. vg1 Pain: Complains of pain in posterior aspect of left knee Pain currently is 8 out of 10 on a pain scale. Quality of pain is described as sharp, Pain began this morning. Neuro: Level of Consciousness is awake, alert, obeys commands, Oriented to person, place, time, situation. Cardiovascular: Patient's skin is warm and dry. Respiratory: Airway is patent Respiratory effort is even, unlabored. GI: No signs and/or symptoms were reported involving the gastrointestinal system. : No signs and/or symptoms were reported regarding the genitourinary system. EENT: No signs and/or symptoms were reported regarding the EENT system. Derm: Skin is intact, is healthy with good turgor. Musculoskeletal: Range of motion: limited in right knee Pt denies any resent surgeries, but states that Left Knee 'pops out every once in awhile; it popped out about four days ago.". 18:12 Reassessment: Patient appears in no apparent distress at this time. No changes from vg1 previously documented assessment. Patient and/or family updated on plan of care and expected duration. Pain level reassessed. Patient is alert, oriented x 3, equal unlabored respirations, skin warm/dry/pink. Vital Signs: 17:25 BP 154 / 82; Pulse 72; Resp 16; Temp 98.1; Pulse Ox 100% on R/A; Pain 8/10; hb ED Course: 17:08 Patient arrived in ED. mr 17:21 Vernon Childs PA is PHCP. [facility] 17:21 Tiny Pyle MD is Attending Physician. [facility] 17:25 Shasta Rivera, RN is Primary Nurse. vg1 17:26 Triage completed. hb 17:26 Arm band placed on. hb 17:32 Patient has correct armband on for positive identification. Bed in low position. Call vg1 light in reach. Side rails up X 1. 17:48 US Extremity Venous Unilateral Ltd In Process Unspecified. EDMS 18:11 No provider procedures requiring assistance completed. Patient did not have IV access vg1 during this emergency room visit. Administered Medications: No medications were administered Outcome: 17:56 Discharge ordered by . [facility] 18:11 Discharged to home ambulatory. vg1 18:11 Condition: stable 18:11 Discharge instructions given to patient, Instructed on discharge instructions, follow up and referral plans. medication usage, Demonstrated understanding of instructions, follow-up care, medications, Prescriptions given X 1. 18:12 Patient left the ED. vg1 Signatures: Dispatcher [employer] EDMS [facility] Vernon, PA PA jmm Rose, Anat mr Daysi Meza, RN RN hb Shasta Rivera RN RN vg1
--- NOTE | 2020-11-10 17:56 | EDPHYS ---
Physician Documentation [facility] Name: Rachael Knox Age: 35 yrs Sex: Female : 1985 Arrival Date: 11/10/2020 Time: 17:08 Bed 13 Private MD: ED Physician Tiny Pyle HPI: 11/10 17:44 This 35 yrs old Female presents to ER via Ambulatory with complaints of Knee jmm Pain. 17:44 The patient presents with pain. Onset: The symptoms/episode began/occurred today. jmm Modifying factors: The symptoms are alleviated by nothing. the symptoms are aggravated by nothing. Associated signs and symptoms: Pertinent negatives fever, warmth, weakness. The patient has not experienced similar symptoms in the past. Patient states she is concerned she may have a blood clot. Historical: - Allergies: 17:26 Azithromycin; hb 17:26 Bactrim; hb 17:26 mycins; hb 17:26 PENICILLINS; hb 17:26 Sulfa (Sulfonamide Antibiotics); hb - PMHx: 17:26 Anemia; Anxiety; Asthma; Bipolar disorder; Hypertension; Hypothyroidism; hb - Immunization history:: Adult Immunizations up to date. - Social history:: Smoking status: Patient denies any tobacco usage or history of. ROS: 17:44 Constitutional: Negative for fever, chills, and weight loss, Cardiovascular: Negative jmm for chest pain, palpitations, and edema, Respiratory: Negative for shortness of breath, cough, wheezing, and pleuritic chest pain. 17:44 MS/extremity: Positive for pain. 17:44 All other systems are negative. Exam: 17:44 Constitutional: This is a well developed, well nourished patient who is awake, alert, jmm and in no acute distress. Head/Face: atraumatic. Eyes: EOMI, no conjunctival erythema appreciated ENT: Moist Mucus Membranes Neck: Trachea midline, Supple Chest/axilla: Normal chest wall appearance and motion. Cardiovascular: Regular rate and rhythm. No edema appreciated Respiratory: Normal respirations, no respiratory distress appreciated Abdomen/GI: Non distended, soft Back: Normal ROM Skin: General appearance color normal 17:44 Musculoskeletal/extremity: ROM: intact in all extremities, full dorsalis pulse noted to the left leg, compartments are soft, NVI. 17:44 Skin: Appearance: Color: normal in color. 17:44 Neuro: Orientation: is normal, Mentation: is normal, Memory: is normal. 17:44 Psych: Behavior/mood is pleasant, cooperative. Vital Signs: 17:25 BP 154 / 82; Pulse 72; Resp 16; Temp 98.1; Pulse Ox 100% on R/A; Pain 8/10; hb MDM: 17:24 Patient medically screened. teresita 17:45 Data reviewed: vital signs, nurses notes. Counseling: I had a detailed discussion with teresita the patient and/or guardian regarding: the historical points, exam findings, and any diagnostic results supporting the discharge/admit diagnosis, radiology results, the need for outpatient follow up, to return to the emergency department if symptoms worsen or persist or if there are any questions or concerns that arise at home. ED course: Patient is alert and non toxic in appearance in the ED. Advised to repeat US in 2 weeks if pain continues or she develops chest pain. Patient understood and agrees with the plan of care. . 11/10 17:24 Order name: Extremity Venous Unilateral Ltd teresita Administered Medications: No medications were administered Disposition: 11/10/20 17:56 Discharged to Home. Impression: Pain in left leg. - Condition is Stable. - Discharge Instructions: Musculoskeletal Pain. - Prescriptions for orphenadrine citrate 100 mg Oral Tablet Sustained Release - take 1 tablet by ORAL route 2 times per day As needed; 20 tablet. - Medication Reconciliation Form, Thank You Letter, Antibiotic Education, Prescription Opioid Use form. - Follow up: Private Physician; When: 2 - 3 days; Reason: Recheck today's complaints, Continuance of care, Re-evaluation by your physician. Signatures: Dispatcher [employer] EDMS Vernon Childs PA PA jmm Baxter, Heather, RN RN Shasta Augustin RN RN vg1 Corrections: (The following items were deleted from the chart) 18:12 17:56 11/10/2020 17:56 Discharged to Home. Impression: Pain in left leg. Condition is vg1 Stable. Forms are Medication Reconciliation Form, Thank You Letter, Antibiotic Education, Prescription Opioid Use. Follow up: Private Physician; When: 2 - 3 days; Reason: Recheck today's complaints, Continuance of care, Re-evaluation by your physician. teresita
--- NOTE | 2020-11-10 18:12 | RAD REPORT ---
EXAM DESCRIPTION: USExtremity Venous Uni Ltd11/10/2020 5:48 pm CLINICAL HISTORY: left leg pain COMPARISON: None. FINDINGS: Left common femoral, superficial femoral, popliteal and posterior tibial veins are compre ssible and demonstrate augmentation. Doppler demonstrates good flow. IMPRESSION: No evidence of deep venous thrombosis involving the left lower extremity.
[2020-11-10 18:30] VITALS: BP 154/82; TEMP 98.1; O2SAT 100
== END 2020-11-10 18:12 | disposition home or self-care (01) ==
LOC: ER 17:00
DX: M79.605 Pain in left leg (principal); I10 Essential (primary) hypertension; Z88.0 Allergy status to penicillin; Z88.1 Allergy status to other antibiotic agents; Z88.2 Allergy status to sulfonamides; Z88.3 Allergy status to other anti-infective agents
CPT/HCPCS: 93971; 99283

== ENCOUNTER 2021-04-14 18:13 | Emergency (ER) | payer SELFPAY ==
--- OUTSIDE RECORDS SUMMARY | 2021-04-14 18:17 | XMS REPORT | Continuity of Care Document ---
:1985 Author Organization [facility] t Address [address] [place] [address] Dr. Marshall [address] [place] [id number] Care Team Providers Name Role Phone Unavailable Unavailable Unavailable Problems This patient has no known problems. Allergies, Adverse Reactions, Alerts This patient has no known allergies or adverse reactions. Medications This patient has no known medications. Procedures This patient has no known procedures. Results This patient has no known results.
--- NOTE | 2021-04-14 20:39 | RAD REPORT ---
EXAM DESCRIPTION: RAD - Chest Single View - 04/14/2021 8:21 pm CLINICAL HISTORY: CHEST PAIN COMPARISON: Portable October 26 TECHNIQUE: AP portable chest image was obtained 04/14/2021 8:21 pm . FINDINGS: Lung volumes are low. Under penetrated technique and large body habitus contributes to acc entuated lung markings. Mild interstitial edema or infiltrate could be masked. No significant failure or volume overload seen. Heart size within normal range for exam limitations. No vascular engorgement. Trachea is in the midl ine. No measurable pleural effusion and no pneumothorax. No acute bony abnormality seen. No acute aortic findings suspected. IMPRESSION: Limited portable study as detailed. No acute cardiopulmonary findings
[2021-04-14 22:10] LABS: Protime INR 1.03
[2021-04-14 22:11] LABS: Basophils % 0.8 % (0-1.3); Hematocrit 34.5 % (36.0-45.0); Lymphocytes % 23.8 % (15.3-44.8); MPV 9.2 fL (7.6-11.3); RBC Red Blood Cell Count 3.66 M/uL (3.86-4.86)
[2021-04-14 22:23] LABS: ALT/SGPT 31 U/L (12-78); AST/SGOT 48 U/L (15-37); Albumin 4.1 g/dL (3.4-5.0); Alkaline Phosphatase 44 U/L (45-117); BUN Blood Urea Nitrogen 11 mg/dL (7-18); Bicarbonate 33 mmol/L (21-32); Bilirubin Direct < 0.1 mg/dL (0-0.2); Bilirubin Total 0.3 mg/dL (0.2-1.0); Glucose Level 94 mg/dL (74-106); Magnesium 2.6 mg/dL (1.8-2.4); NT PRO-BNP 8 pg/mL (<125); Protein, Total 7.9 g/dL (6.4-8.2); Sodium Level 142 mmol/L (136-145); Troponin (Emerg Dept Use Only) < 0.02 ng/mL (0.0-0.045)
--- NOTE | 2021-04-14 22:42 | EDPHYS ---
Physician Documentation [facility] Name: Rachael Knox Age: 36 yrs Sex: Female : 1985 Arrival Date: 04/14/2021 Time: 18:16 Bed 19 Private MD: ED Physician Jaylan Ortiz HPI: 04/14 20:09 This 36 yrs old Female presents to ER via Ambulatory with complaints of Chest jmm Pain. 20:09 The patient presents with pain pain. Onset: The symptoms/episode began/occurred today. jmm The pain does not radiate. Associated signs and symptoms: Pertinent negatives: sob. The patient has experienced a previous episode. This is a 36-year-old female with a history of anemia, anxiety, asthma, bipolar, hypertension, hypothyroidism the presents emerged department with complaints of tingling to her hands, anxiety, and left upper back pain which wraps around to her chest. Symptoms been ongoing for a little over a day. Patient denies shortness of breath, vomiting, abdominal pain.. REHAB THERAPIST: 18:58 LMP 04/07/2021 vg1 Historical: - Allergies: 18:58 Azithromycin; vg1 18:58 Bactrim; vg1 18:58 mycins; vg1 18:58 PENICILLINS; vg1 18:58 Sulfa (Sulfonamide Antibiotics); vg1 - Home Meds: 18:58 Albuterol Inhl [Active]; vg1 - PMHx: 18:58 Anemia; Anxiety; Asthma; Bipolar disorder; Hypertension; Hypothyroidism; vg1 - Immunization history:: Client reports having NOT received the Covid vaccine. - Social history:: Smoking status: Patient denies any tobacco usage or history of. ROS: 20:09 Constitutional: Negative for fever, chills, and weight loss, Cardiovascular: Negative jmm for chest pain, palpitations, and edema, Respiratory: Negative for shortness of breath, cough, wheezing, and pleuritic chest pain. 20:09 Back: Positive for pain with movement. 20:09 Psych: Positive for anxiety. 20:09 All other systems are negative. Exam: 20:09 Constitutional: This is a well developed, well nourished patient who is awake, alert, jmm and in no acute distress. Head/Face: atraumatic. Eyes: EOMI, no conjunctival erythema appreciated ENT: Moist Mucus Membranes Neck: Trachea midline, Supple Chest/axilla: Normal chest wall appearance and motion. Cardiovascular: Regular rate and rhythm. No edema appreciated Respiratory: Normal respirations, no respiratory distress appreciated Abdomen/GI: Non distended, soft Back: Normal ROM Skin: General appearance color normal MS/ Extremity: Moves all extremities, no obvious deformities appreciated, no edema noted to the lower extremities Neuro: Awake and alert, normal gait Psych: Behavior is normal, Mood is normal, Patient is cooperative and pleasant Vital Signs: 18:45 BP 127 / 88; Pulse 84; Resp 20; Temp 97.4; Pulse Ox 93% ; Weight 161.93 kg; Height 5 vg1 ft. 5 in. (165.10 cm); Pain 2/10; 22:20 BP 132 / 80; Pulse 80; Resp 18; Temp 98.7(O); Pulse Ox 100% on R/A; Pain 4/10; kc4 18:45 Body Mass Index 59.41 (161.93 kg, 165.10 cm) vg1 MDM: 20:09 Patient medically screened. [facility] 22:40 Data reviewed: vital signs, nurses notes. Counseling: I had a detailed discussion with teresita the patient and/or guardian regarding: the historical points, exam findings, and any diagnostic results supporting the discharge/admit diagnosis, lab results, radiology results, the need for outpatient follow up, to return to the emergency department if symptoms worsen or persist or if there are any questions or concerns that arise at home. ED course: Patient is alert nontoxic in appearance in the ED. Vital signs are normal, I do not currently suspect PE. Labs unremarkable. Possibly due to anxiety but patient is given strict return precautions. Patient understood agrees plan of care.. 04/14 20:10 Order name: Basic Metabolic Panel [facility] 04/14 20:10 Order name: CBC with Diff; Complete Time: 22:30 [facility] 04/14 20:10 Order name: LFT's [facility] 04/14 20:10 Order name: Magnesium [facility] 04/14 20:10 Order name: NT PRO-BNP [facility] 04/14 20:10 Order name: PT-INR; Complete Time: 22:13 [facility] 04/14 20:10 Order name: Troponin (emerg Dept Use Only) [facility] 04/14 20:10 Order name: XRAY Chest (1 view); Complete Time: 20:41 [facility] 04/14 20:10 Order name: EKG; Complete Time: 20:11 [facility] 04/14 20:10 Order name: Cardiac monitoring; Complete Time: 21:53 [facility] 04/14 20:10 Order name: EKG - Nurse/Tech; Complete Time: 20:13 [facility] 04/14 20:10 Order name: IV Saline Lock; Complete Time: 21:53 [facility] 04/14 20:10 Order name: Labs collected and sent; Complete Time: :53 [facility] 04/14 20:10 Order name: O2 Per Protocol; Complete Time: 21:53 [facility] 04/14 20:10 Order name: O2 Sat Monitoring; Complete Time: :53 [facility] Administered Medications: No medications were administered Disposition: 04/15 06:05 Co-signature as Attending Physician, Jaylan Ortiz MD. mh7 Disposition Summary: 04/14/21 22:41 Discharge Ordered Location: Home [facility] Condition: Stable [facility] Diagnosis - Back Pain [facility] - Anxiety [facility] Followup: [facility] - With: Private Physician - When: 2 - 3 days - Reason: Recheck today's complaints, Continuance of care, Re-evaluation by your physician Discharge Instructions: - Discharge Summary Sheet [facility] - Acute Back Pain, Adult [facility] - Managing Anxiety, Adult [facility] Forms: - Medication Reconciliation Form [facility] - Thank You Letter [facility] - Antibiotic Education [facility] - Prescription Opioid Use [facility] Prescriptions: - Ativan 1 mg Oral Tablet - take 1 tablet by ORAL route every 8 hours As needed; 20 tablet; Refills: 0, [facility] Product Selection Permitted Signatures: Dispatcher [employer] Vernon Zhong PA PA jmm Garcia, Victoria, RN RN vg1 Jaylan Ortiz MD MD mh7
--- NOTE | 2021-04-14 22:42 | ER ---
Nurse's Notes [facility] Name: Rachael Knox Age: 36 yrs Sex: Female : 1985 Arrival Date: 04/14/2021 Time: 18:16 Bed 19 Private MD: Diagnosis: Back Pain;Anxiety Presentation: 04/14 18:45 Chief complaint: Patient states: Chest pain and left side of rib pain that began about vg1 3 days ago. Denies nausea/vomiting. States took Ativan at 0400. Also states Right and Left finger tips are tingling. Coronavirus screen: Vaccine status: Patient reports being unvaccinated. Client denies travel out of the [place] in the last 14 days. Ebola Screen: Patient negative for fever greater than or equal to 101.5 degrees Fahrenheit, and additional compatible Ebola Virus Disease symptoms. Initial Sepsis Screen: Does the patient meet any 2 criteria? No. Patient's initial sepsis screen is negative. Does the patient have a suspected source of infection? No. Patient's initial sepsis screen is negative. Risk Assessment: Do you want to hurt yourself or someone else? Patient reports no desire to harm self or others. Onset of symptoms was April 11, 2021. 18:45 Method Of Arrival: Ambulatory vg1 18:45 Acuity: DARSHAN 3 vg1 20:30 Note Came to the bedside to gown, lab and line and hook pt up to the monitor. pt kc4 refused to be gown ed and hooked up to the monitor. Nurse talked to pt about the importance of being hooked up to the monitor and pt then stated " you have a bad attitude." I want another nurse." RN left room and talked with discharge rn. note specialist will take over care of this patient. Triage Assessment: 18:58 General: Appears in no apparent distress. uncomfortable, Behavior is calm, cooperative. vg1 Pain: Denies pain. Cardiovascular: Patient's skin is warm and dry. HADOOP ARCHITECT: 18:58 LMP 04/07/2021 vg1 Historical: - Allergies: 18:58 Azithromycin; vg1 18:58 Bactrim; vg1 18:58 mycins; vg1 18:58 PENICILLINS; vg1 18:58 Sulfa (Sulfonamide Antibiotics); vg1 - Home Meds: 18:58 Albuterol Inhl [Active]; vg1 - PMHx: 18:58 Anemia; Anxiety; Asthma; Bipolar disorder; Hypertension; Hypothyroidism; vg1 - Immunization history:: Client reports having NOT received the Covid vaccine. - Social history:: Smoking status: Patient denies any tobacco usage or history of. Assessment: 21:30 General: Appears in no apparent distress. obese, unkempt, Behavior is calm, kc4 uncooperative. Pain: Complains of pain in chest Pain does not radiate. Pain currently is 5 out of 10 on a pain scale. at worst was 6 out of 10 on a pain scale. level that patient reports is acceptable is 2 out of 10 on a pain scale. Quality of pain is described as discomfort Pain began gradually, 3 hours ago. Is intermittent. Neuro: No deficits noted. Cardiovascular: Reports chest discomfort Denies chest pain, diaphoresis, fatigue, lightheadedness, nausea, palpitations, shortness of breath, syncope, vomiting, Heart tones S1 S2 present. Respiratory: No deficits noted. GI: No deficits noted. No signs and/or symptoms were reported involving the gastrointestinal system. : No deficits noted. No signs and/or symptoms were reported regarding the genitourinary system. EENT: No deficits noted. No signs and/or symptoms were reported regarding the EENT system. Derm: No deficits noted. No signs and/or symptoms reported regarding the dermatologic system. Musculoskeletal: No deficits noted. No signs and/or symptoms reported regarding the musculoskeletal system. Vital Signs: 18:45 BP 127 / 88; Pulse 84; Resp 20; Temp 97.4; Pulse Ox 93% ; Weight 161.93 kg; Height 5 vg1 ft. 5 in. (165.10 cm); Pain 2/10; 22:20 BP 132 / 80; Pulse 80; Resp 18; Temp 98.7(O); Pulse Ox 100% on R/A; Pain 4/10; kc4 18:45 Body Mass Index 59.41 (161.93 kg, 165.10 cm) vg1 ED Course: 18:16 Patient arrived in ED. mr 18:58 Triage completed. vg1 18:58 Arm band placed on. EKG completed in triage. Results shown to MD. [facility] 19:51 Vernon Childs PA is PHCP. jmm 19:51 Jaylan Ortiz MD is Attending Physician. [facility] 19:53 Linda Freeman is Primary Nurse. kc4 20:21 XRAY Chest (1 view) In Process Unspecified. EDMS 21:45 Missed attempt(s): 18 gauge in right antecubital area. lp1 21:45 Inserted saline lock: 22 gauge in left antecubital area, using aseptic technique. Blood lp1 collected. 22:17 No provider procedures requiring assistance completed. Patient maintains SpO2 kc4 saturation greater than 95% on room air. Administered Medications: No medications were administered Outcome: 22:41 Discharge ordered by . teresita 23:23 Patient left the ED. mw2 Signatures: Dispatcher [employer] EDMS Vernon Childs PA PA Anat Nye mr HallOmayra geronimo, RN RN lp1 Dayo Mcmullen mw2 Shasta Rivera, RN RN vg1 Linda Freeman kc4
[2021-04-14 23:31] VITALS: BP 132/80; TEMP 98.7; O2SAT 100
--- NOTE | 2021-04-17 08:11 | EKG ---
Test Date: 2021-04-14 Test Time: 18:55:55 Fryline Attendant: MARGO MEASUREMENT RESULTS: Intervals: Rate: 80 MS: 152 QRSD: 98 QT: 346 QTc: 399 [place]: P: 40 MS: 152 QRS: 104 T: -62 INTERPRETIVE STATEMENTS: Normal sinus rhythm Rightward axis Low voltage QRS Cannot rule out Anterior infarct, age undetermined Abnormal ECG Compared to ECG 10/26/2020 16:41:30 Right-axis deviation now present Myocardial infarct finding now present ST (T wave) deviation no longer present Electronically Signed On 04-17-21 08:04:06 AUTOMATIC TIRE TESTER by Dagoberto Ramos
== END 2021-04-14 23:23 | disposition home or self-care (01) ==
LOC: ER 18:13
DX: F41.9 Anxiety disorder, unspecified (principal); J45.909 Unspecified asthma, uncomplicated; Z88.0 Allergy status to penicillin; Z88.1 Allergy status to other antibiotic agents; Z88.2 Allergy status to sulfonamides; Z88.3 Allergy status to other anti-infective agents
CPT/HCPCS: 36415; 71045; 80048; 80076; 83735; 83880; 84439; 84443; 84484; 85025; 85610; 93005; 99284

== ENCOUNTER 2021-05-03 07:54 | Emergency (ER) | payer SELFPAY ==
--- OUTSIDE RECORDS SUMMARY | 2021-05-03 07:57 | XMS REPORT | Continuity of Care Document ---
:1985 Author Organization [facility] t Address [address] [place] [address] Dr. Marshall [address] [place] [id number] Care Team Providers Name Role Phone Unavailable Unavailable Unavailable Problems This patient has no known problems. Allergies, Adverse Reactions, Alerts This patient has no known allergies or adverse reactions. Medications This patient has no known medications. Procedures This patient has no known procedures. Results This patient has no known results.
[2021-05-03] MEDS ORDERED: NA CHLORIDE 0.9% 1,000 ML ONE (08:23)
[2021-05-03 08:27] LABS: Absolute Lymphocytes (CBC) 1.8 K/uL (0.7-4.9); Basophils % 1.2 % (0-1.3); Hematocrit 35.9 % (36.0-45.0); Lymphocytes % 18.5 % (15.3-44.8); MPV 9.6 fL (7.6-11.3); RBC Red Blood Cell Count 3.81 M/uL (3.86-4.86)
[2021-05-03 08:43] LABS: Bilirubin Total 0.3 mg/dL (0.2-1.0); Potassium 4.1 mmol/L (3.5-5.1); Protein, Total 7.8 g/dL (6.4-8.2)
[2021-05-03 10:35] LABS: Urine Blood Negative (Negative); Urine Glucose Negative (Negative); Urine Protein Negative (Negative); Urine Specific Gravity 1.025 (1.005-1.030)
--- NOTE | 2021-05-03 10:44 | ER ---
Nurse's Notes [facility] Name: Rachael Knox Age: 36 yrs Sex: Female : 1985 Arrival Date: 05/03/2021 Time: 08:01 Bed 6 Private MD: Diagnosis: Vomiting;Diarrhea, unspecified Presentation: 05/03 08:03 Chief complaint: EMS states: NAUSEA, VOMITING, DIARRHEA SINCE 0100. Coronavirus screen: bp At this time, the client does not indicate any symptoms associated with coronavirus-19. Ebola Screen: No symptoms or risks identified at this time. Initial Sepsis Screen: Does the patient meet any 2 criteria? No. Patient's initial sepsis screen is negative. Does the patient have a suspected source of infection? No. Patient's initial sepsis screen is negative. Risk Assessment: Do you want to hurt yourself or someone else? Patient reports no desire to harm self or others. Onset of symptoms was May 03, 2021 at 01:00. Care prior to arrival: Medication(s) given: Phenergan, 12.5 mg, IV initiated. 20 GA, in the left antecubital area. 08:03 Method Of Arrival: EMS: [facility] bp 08:03 Acuity: DARSHAN 3 bp Triage Assessment: 08:05 General: Appears in no apparent distress. uncomfortable, obese, unkempt, Behavior is bp cooperative, appropriate for age, anxious. Pain: Denies pain. EENT: No deficits noted. Neuro: No deficits noted. Cardiovascular: Rhythm is sinus rhythm. Respiratory: No deficits noted. GI: Reports diarrhea, nausea, vomiting. : No signs and/or symptoms were reported regarding the genitourinary system. Derm: No deficits noted. Musculoskeletal: No deficits noted. 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 - Social history:: Smoking status: Patient denies any tobacco usage or history of. Screenin:09 Abuse screen: Denies threats or abuse. Denies injuries from another. Nutritional bp screening: No deficits noted. Tuberculosis screening: No symptoms or risk factors identified. Fall Risk None identified. Assessment: 08:08 General: SEE TRIAGE NOTE. bp 09:00 Reassessment: No changes from previously documented assessment. Patient and/or family ll1 updated on plan of care and expected duration. Pain level reassessed. Patient is alert, oriented x 3, equal unlabored respirations, skin warm/dry/pink. 10:00 Reassessment: No changes from previously documented assessment. Patient and/or family ll1 updated on plan of care and expected duration. Pain level reassessed. Patient is alert, oriented x 3, equal unlabored respirations, skin warm/dry/pink. 10:58 Reassessment: No changes from previously documented assessment. Patient and/or family ll1 updated on plan of care and expected duration. Pain level reassessed. Patient is alert, oriented x 3, equal unlabored respirations, skin warm/dry/pink. Patient states feeling better. Vital Signs: 08:03 BP 127 / 88; Pulse 83; Resp 16; Temp 97.7; Pulse Ox 96% ; Weight 151.95 kg; Height 5 bp ft. 5 in. (165.10 cm); 08:59 BP 128 / 96; Pulse 77; Resp 18; Pulse Ox 96% ; ll1 10:00 BP 103 / 53; Pulse 56; Resp 16; Pulse Ox 99% ; bp 10:51 BP 113 / 77; Pulse 64; Resp 17; Pulse Ox 94% ; bp 10:58 BP 120 / 72; Pulse 65; Resp 18; Pulse Ox 95% on R/A; ll1 08:03 Body Mass Index 55.75 (151.95 kg, 165.10 cm) bp ED Course: 08:01 Patient arrived in ED. eb 08:02 Andrés Gilmore NP is PHCP. pm1 08:02 Rajan Samuel MD is Attending Physician. pm1 08:03 Adithya Guillen RN is Primary Nurse. bp 08:03 Maintain EMS IV. Dressing intact. Good blood return noted. Site clean \T\ dry. Gauge \T\ ll 1 site: 18 G L AC. 08:05 Triage completed. bp 08:05 Arm band placed on. bp 08:09 Patient has correct armband on for positive identification. Bed in low position. Call bp light in reach. Side rails up X2. 10:57 IV discontinued, intact, bleeding controlled, No redness/swelling at site. Pressure ll1 dressing applied. 10:59 No provider procedures requiring assistance completed. ll1 Administered Medications: 08:16 Drug: NS 0.9% 1000 ml Route: IV; Rate: 1000 ml; Site: left antecubital; bp 10:57 Follow up: Response: No adverse reaction; IV Status: Completed infusion; IV Intake: ll1 800ml 10:57 Drug: Cipro (ciprofloxacin) 500 mg Route: PO; ll1 11:00 Follow up: Response: No adverse reaction ll1 Intake: 10:57 IV: 800ml; Total: 800ml. ll1 Outcome: 10:43 Discharge ordered by MD. pm1 10:59 Discharged to home ambulatory. ll1 10:59 Condition: stable 10:59 Discharge instructions given to patient, Instructed on discharge instructions, follow up and referral plans. medication usage, Demonstrated understanding of instructions, follow-up care, medications, Prescriptions given X 2. 11:00 Patient left the ED. ll1 Signatures: Andrés Gilmore NP DEOILING MACHINE OPERATOR pm1 Adithya Guillen, RN RN Sanjuanita Rasmussen Lynsay, RN RN ll1
--- NOTE | 2021-05-03 10:44 | EDPHYS ---
Physician Documentation [facility] Name: Rachael Knox Age: 36 yrs Sex: Female : 1985 Arrival Date: 05/03/2021 Time: 08:01 Bed 6 Private MD: ED Physician Rajan Samuel HPI: 05/03 08:11 This 36 yrs old Female presents to ER via EMS with complaints of vomiting and pm1 diarrhea. 08:11 The patient presents to the emergency department with vomiting, diarrhea. Onset: The pm1 symptoms/episode began/occurred this morning, at 01:00. Possible causes: sick contacts, by family, son, 18 yo who has stomach flu, with the same symptoms of vomiting and diarrhea. He apparently contracted the illness from the patient's niece. The symptoms are alleviated by nothing. Associated signs and symptoms: Pertinent negatives: abdominal pain, fever, chest pain, shortness of breath. Severity of symptoms: in the emergency department the symptoms are unchanged. The patient has not recently seen a physician. 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 - Social history:: Smoking status: Patient denies any tobacco usage or history of. ROS: 08:11 Constitutional: Negative for fever, chills, and weight loss, Cardiovascular: Negative pm1 for chest pain, palpitations, and edema, Respiratory: Negative for shortness of breath, cough, wheezing, and pleuritic chest pain. 08:11 Back: Negative for injury and pain, : Negative for injury, bleeding, discharge, and swelling, MS/Extremity: Negative for injury and deformity, Skin: Negative for injury, rash, and discoloration, Neuro: Negative for headache, weakness, numbness, tingling, and seizure. 08:11 Abdomen/GI: Positive for nausea, vomiting, and diarrhea, Negative for abdominal pain, constipation. 08:11 All other systems are negative. Exam: 08:11 Constitutional: This is a well developed, well nourished patient who is awake, alert, pm1 and in no acute distress. Head/Face: Normocephalic, atraumatic. 08:11 Back: No spinal tenderness. No costovertebral tenderness. Full range of motion. Skin: Warm, dry with normal turgor. Normal color with no rashes, no lesions, and no evidence of cellulitis. MS/ Extremity: Pulses equal, no cyanosis. Neurovascular intact. Full, normal range of motion. 08:11 Eyes: Exam is negative for acute changes, Extraocular movements: no acute changes, Conjunctiva: no acute changes, no injection, Sclera: no acute changes, icterus, is not appreciated. 08:11 ENT: Mouth: Lips: dry, Oral mucosa: normal, pink and intact, Voice: no acute changes. 08:11 Cardiovascular: Exam negative for acute changes, Rate: normal, Rhythm: regular, Pulses: no pulse deficits are appreciated. 08:11 Respiratory: Exam negative for acute changes, respiratory distress, shortness of breath, Breath sounds: are clear throughout. 08:11 Abdomen/GI: Inspection: obese Palpation: abdomen is soft and non-tender, in all quadrants. 08:11 Neuro: Exam negative for acute changes, Orientation: is normal, Mentation: is normal, Motor: is normal, moves all fours, Sensation: is normal, no obvious gross deficits. Vital Signs: 08:03 BP 127 / 88; Pulse 83; Resp 16; Temp 97.7; Pulse Ox 96% ; Weight 151.95 kg; Height 5 bp ft. 5 in. (165.10 cm); 08:59 BP 128 / 96; Pulse 77; Resp 18; Pulse Ox 96% ; ll1 10:00 BP 103 / 53; Pulse 56; Resp 16; Pulse Ox 99% ; bp 10:51 BP 113 / 77; Pulse 64; Resp 17; Pulse Ox 94% ; bp 10:58 BP 120 / 72; Pulse 65; Resp 18; Pulse Ox 95% on R/A; ll1 08:03 Body Mass Index 55.75 (151.95 kg, 165.10 cm) bp MDM: 08:03 Patient medically screened. pm1 08:09 ED course: Offered additional antinausea medicine. Patient refused because given Zofran pm1 in route by EMS. Patient reports nausea is improved by the Zofran given already. 08:17 Data reviewed: vital signs. Data interpreted: Pulse oximetry: on room air is 96 %. pm1 Interpretation: normal. 10:42 Counseling: I had a detailed discussion with the patient and/or guardian regarding: the pm1 historical points, exam findings, and any diagnostic results supporting the discharge/admit diagnosis, lab results, the need for outpatient follow up, to return to the emergency department if symptoms worsen or persist or if there are any questions or concerns that arise at home. 05/03 08:09 Order name: CMP; Complete Time: 09:24 pm1 05/03 08:10 Order name: CBC with Automated Diff; Complete Time: 09:24 EDMS 05/03 10:13 Order name: COVID-19/FLU A+B (Document "Date of Onset" if Symptomatic) pm1 05/03 10:34 Order name: Urine Dipstick-Ancillary; Complete Time: 10:38 EDMS 05/03 08:09 Order name: Urine Dipstick-Ancillary (obtain specimen); Complete Time: 10:40 pm1 05/03 08:09 Order name: Urine Test (obtain specimen); Complete Time: 10:40 pm1 05/03 10:39 Order name: Urine --Ancillary (enter results) eb 05/03 10:42 Order name: Urine Culture pm1 Administered Medications: 08:16 Drug: NS 0.9% 1000 ml Route: IV; Rate: 1000 ml; Site: left antecubital; bp 10:57 Follow up: Response: No adverse reaction; IV Status: Completed infusion; IV Intake: ll1 800ml 10:57 Drug: Cipro (ciprofloxacin) 500 mg Route: PO; ll1 11:00 Follow up: Response: No adverse reaction ll1 Disposition: 15:44 Co-signature as Attending Physician, Rajan Samuel MD I agree with the assessment and kdr plan of care. Disposition Summary: 05/03/21 10:43 Discharge Ordered Location: Home pm1 Problem: new pm1 Symptoms: have improved pm1 Condition: Stable pm1 Diagnosis - Vomiting pm1 - Diarrhea, unspecified pm1 Followup: pm1 - With: Emergency Department - When: As needed - Reason: Worsening of condition Followup: pm1 - With: Private Physician - When: 2 - 3 days - Reason: Recheck today's complaints, Continuance of care, Re-evaluation by your physician Discharge Instructions: - Discharge Summary Sheet pm1 - Food Choices to Help Relieve Diarrhea, Adult pm1 - Diarrhea, Adult pm1 - Viral Gastroenteritis, Adult pm1 - Vomiting, Adult pm1 Forms: - Medication Reconciliation Form pm1 - Thank You Letter pm1 - Antibiotic Education pm1 - Prescription Opioid Use pm1 - Work release form eb Prescriptions: - ondansetron 4 mg Oral tablet,disintegrating - place 1 tablet by TRANSLINGUAL route every 8 hours As needed; 12 tablet; pm1 Refills: 0, Product Selection Permitted - Cipro 500 mg Oral Tablet - take 1 tablet by ORAL route every 12 hours for 7 days; 14 tablet; Refills: 0, pm1 Product Selection Permitted Signatures: Dispatcher [employer] EDMS Rajan Samuel MD MD [facility] Andrés Gilmore NP HAND EXPANSION ENVELOPE MAKER pm1 Adithya Guillen RN RN bp Yonny Campbell RN RN ll1 Corrections: (The following items were deleted from the chart) 10:25 08:09 CBC+H.LAB.INDU ordered. EDRI EDMS
[2021-05-03] MEDS ORDERED: CIPROFLOXACIN HCL 500 MG TAB ONE (10:51)
[2021-05-03 11:07] VITALS: TEMP 97.7
[2021-05-03 11:13] VITALS: BP 120/72; O2SAT 95
[2021-05-03 11:13] LABS: SARS-COV-2 RT PCR NEGATIVE (NEGATIVE)
[2021-05-03 11:44] LABS: Urine Specific Gravity/Preg 1.025 (1.005-1.030)
== END 2021-05-03 11:00 | disposition home or self-care (01) ==
LOC: ER 07:54
DX: R19.7 Diarrhea, unspecified (principal); E03.9 Hypothyroidism, unspecified; F41.9 Anxiety disorder, unspecified; Z88.0 Allergy status to penicillin; Z88.1 Allergy status to other antibiotic agents; Z88.2 Allergy status to sulfonamides
CPT/HCPCS: 0240U; 36415; 80053; 81003; 81025; 85025; 96360; 96361; 99284; J7030

== ENCOUNTER 2021-06-07 16:44 | Inpatient (IN) | payer MEDICAID, SELFPAY ==
--- OUTSIDE RECORDS SUMMARY | 2021-06-07 16:47 | XMS REPORT | Continuity of Care Document ---
:1985 Author Organization [facility] t Address [address] [place] [address] Dr. Marshall [address] [place] [id number] Care Team Providers Name Role Phone Unavailable Unavailable Unavailable Problems This patient has no known problems. Allergies, Adverse Reactions, Alerts This patient has no known allergies or adverse reactions. Medications This patient has no known medications. Procedures This patient has no known procedures. Results This patient has no known results.
[2021-06-07 18:38] LABS: Absolute Lymphocytes (CBC) 1.2 K/uL (0.7-4.9); Hematocrit 33.3 % (36.0-45.0); MPV 9.5 fL (7.6-11.3); Protime INR 1.01; RBC Red Blood Cell Count 3.56 M/uL (3.86-4.86)
[2021-06-07 18:39] LABS: Urine Blood Negative (Negative); Urine Glucose Negative (Negative); Urine Protein 2+ (Negative); Urine Specific Gravity 1.025 (1.005-1.030); Urine pH 6.5 (5.0-7.0)
[2021-06-07 18:51] LABS: Albumin 3.8 g/dL (3.4-5.0); Bilirubin Direct 0.1 mg/dL (0-0.2); Bilirubin Total 0.5 mg/dL (0.2-1.0); Magnesium 2.5 mg/dL (1.8-2.4); Potassium 3.6 mmol/L (3.5-5.1); Protein, Total 7.6 g/dL (6.4-8.2); Troponin High Sensitivity 6.3 pg/mL (<58.9)
[2021-06-07 18:53] LABS: Urine Specific Gravity/Preg 1.025 (1.005-1.030)
[2021-06-07 19:01] LABS: Urine Bacteria >50 /HPF (<20); Urine Mucus HEAVY /HPF (NONE SEEN); Urine RBC <5 /HPF (NONE SEEN)
--- NOTE | 2021-06-07 19:31 | RAD REPORT ---
EXAM DESCRIPTION: Rosario Single View06/07/2021 7:15 pm CLINICAL HISTORY: Shortness breath COMPARISON: March 2021 FINDINGS: Lungs appear mildly hazy. Heart is mildly enlarged IMPRESSION: The lungs appear mildly hazy which may indicate mild interstitial pulmonary edema or pne umonia
[2021-06-07] MEDS ORDERED: MORPHINE 4 MG/ML SYR ONE ×2 (19:53→21:24)
[2021-06-07] MEDS ORDERED: METHYLPREDNISOLONE 125 MG INJ ONE (19:53)
[2021-06-07] MEDS ORDERED: ONDANSETRON 4 MG/2 ML VIAL ONE (19:54)
[2021-06-07 21:11] LABS: SARS-COV-2 RT PCR NEGATIVE (NEGATIVE)
--- NOTE | 2021-06-07 21:53 | RAD REPORT ---
EXAM DESCRIPTION: CT - Stone Protocol - 06/07/2021 9:37 pm CLINICAL HISTORY: Abdominal pain. COMPARISON: 2019 TECHNIQUE: Computed axial tomography of the abdomen pelvis was obtained without oral or IV contrast. Lack of IV and oral contrast limits evaluation of solid organs, bowel, and vessels. Coronal reformat john images were obtained and reviewed. All CT scans are performed using dose optimization technique as appropriate and may include automated exposure control or mA/KV adjustment according to patient size. FINDINGS: Two calculi within the left kidney measuring 1 millimeter each. Calculus left kidney. No hydronephrosis. Right renal calculus is not seen. No ureteral/bladder calculus. Fatty infiltration liver. Spleen, pancreas and adrenals appear grossly normal There is no evidence of diverticulitis. Borderline enlargement of the appendix. No abscess. No free air. 4.1 centimeter right ovarian cyst Diffuse edema within the subcutaneous tissues Small to moderate umbilical hernia. The neck measures 14 millimeters Mild right middle lobe atelectasis IMPRESSION: Tiny nonobstructing left renal calculi 4.1 centimeter right ovarian cyst without significant free fluid. Borderline enlargement of the appendix of uncertain significance. If the patient has clinical symptom s to suggest appendicitis then a CT scan with IV and oral contrast with opacification of the terminal ileum/cecum would be recommended for further evaluation.
--- NOTE | 2021-06-07 22:33 | ER ---
Nurse's Notes [facility] Name: Rachael Knox Age: 36 yrs Sex: Female : 1985 Arrival Date: 06/07/2021 Time: 16:57 Bed 5 Private MD: Diagnosis: Unspecified asthma with (acute) exacerbation Presentation: 06/07 16:59 Chief complaint: Patient states: Patient biba for c/o left sided abdominal pain rad to vg1 back and nausea, in triage pt o2 81% on ra, placed pt on 3 liters bnc, current 02 94%. Coronavirus screen: Vaccine status: Patient reports being unvaccinated. Client denies travel out of the [place] in the last 14 days. Ebola Screen: Patient negative for fever greater than or equal to 101.5 degrees Fahrenheit, and additional compatible Ebola Virus Disease symptoms. Initial Sepsis Screen: Does the patient meet any 2 criteria? No. Patient's initial sepsis screen is negative. Does the patient have a suspected source of infection? No. Patient's initial sepsis screen is negative. Risk Assessment: Do you want to hurt yourself or someone else? Patient reports no desire to harm self or others. Onset of symptoms was June 06, 2021. 16:59 Method Of Arrival: EMS: [facility] vg1 16:59 Acuity: DARSHAN 3 vg1 Triage Assessment: 17:07 General: Appears uncomfortable, Behavior is calm, cooperative. Pain: Complains of pain vg1 in left upper quadrant and left lower quadrant Pain radiates to back. GI: Abdomen is obese, Reports nausea. 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 - Social history:: Smoking status: Patient denies any tobacco usage or history of. Screenin:15 Abuse screen: Denies threats or abuse. Nutritional screening: No deficits noted. tw2 Tuberculosis screening: No symptoms or risk factors identified. Fall Risk None identified. Assessment: 18:39 GI: Bowel sounds present X 4 quads. Abd is soft and non tender X 4 quads. jg9 20:01 Reassessment: Patient appears in no apparent distress at this time. No changes from lg3 previously documented assessment. Patient and/or family updated on plan of care and expected duration. Pain level reassessed. Patient is alert, oriented x 3, equal unlabored respirations, skin warm/dry/pink. Neuro: Level of Consciousness is awake, alert, obeys commands, Oriented to person, place, time, situation. Respiratory: Airway is patent Respiratory effort is even, unlabored, Respiratory pattern is regular, symmetrical. 23:23 Reassessment: Patient appears in no apparent distress at this time. No changes from lg3 previously documented assessment. Patient and/or family updated on plan of care and expected duration. Pain level reassessed. Patient is alert, oriented x 3, equal unlabored respirations, skin warm/dry/pink. General: Appears in no apparent distress. comfortable, Behavior is calm, cooperative. Neuro: Level of Consciousness is awake, alert, obeys commands, Oriented to person, place, time, situation. Cardiovascular: Patient's skin is warm and dry. Respiratory: Airway is patent Respiratory effort is even, unlabored, Respiratory pattern is regular, symmetrical, Denies shortness of breath. Vital Signs: 16:59 BP 128 / 56; Pulse 88; Resp 20; Temp 97.4; Pulse Ox 94% on 3 lpm NC; Weight 151.95 kg; vg1 Height 5 ft. 5 in. (165.10 cm); Pain 10/10; 18:17 BP 132 / 81; Pulse 93; Resp 15; Pulse Ox 100% on 3 lpm NC; tw2 21:31 BP 133 / 91; Pulse 79; Resp 18; Pulse Ox 93% on 3 lpm NC; lg3 23:24 BP 113 / 71; Pulse 84; Resp 16 S; Pulse Ox 98% ; lg3 16:59 Body Mass Index 55.75 (151.95 kg, 165.10 cm) vg1 ED Course: 16:57 Patient arrived in ED. vg1 17:07 Triage completed. vg1 17:07 Arm band placed on. vg1 17:56 Lalita Langley, VITA is Primary Nurse. jg9 17:56 Bed in low position. Call light in reach. property assessment monitor on. Pulse ox on. NIBP on. tw2 18:07 Kang Clemente PA is PHCP. cp 18:07 Rajan Samuel MD is Attending Physician. cp 18:10 Inserted saline lock: 20 gauge in left antecubital area, using aseptic technique. Blood jg9 collected. 19:14 XRAY Chest (1 view) In Process Unspecified. EDMS 20:21 COVID-19/FLU A+B (Document "Date of Onset" if Symptomatic) Sent. lg3 21:37 CT Stone Protocol In Process Unspecified. EDMS 22:32 Graeme Joy is Hospitalizing Provider. cp 23:08 US Transvaginal Study (Probe) In Process Unspecified. EDMS 01 01:05 No provider procedures requiring assistance completed. Patient admitted, IV remains in lg3 place. intact, No redness/swelling at site. Oxygen administration via nasal cannula \\T\\ 3L/min. Administered Medications: 06/07 20:00 Drug: morphine 4 mg Route: IVP; Site: left antecubital; lg3 20:01 Follow up: Response: No adverse reaction; RASS: Alert and Calm (0) lg3 20:00 Drug: Zofran (Ondansetron) 4 mg Route: IVP; Site: left antecubital; lg3 20:00 Follow up: Response: No adverse reaction lg3 20:00 Drug: SOLU-Medrol (methylPrednisoLONE) 125 mg Route: IVP; Site: left antecubital; lg3 20:00 Follow up: Response: No adverse reaction lg3 21:31 Drug: morphine 4 mg Route: IVP; Site: left antecubital; lg3 21:31 Follow up: Response: No adverse reaction; RASS: Alert and Calm (0) lg3 23:10 Drug: Albuterol - atroVENT (ipratropium) (3:1) (2.5 mg - 0.5 mg) 3 ml Route: Nebulizer; lg3 23:10 Follow up: Response: No adverse reaction lg3 23:10 Drug: Ativan (LORazepam) 1 mg Route: PO; lg3 23:10 Follow up: Response: No adverse reaction lg3 Point of Care Testing: Urine : 19:00 hCG Reading: Negative; Control Reading: Positive; jg9 Outcome: 22:32 Decision to Hospitalize by Provider. allan 06/08 01:05 Admitted to Med/surg via wheelchair, with oxygen, Report called to [place] Condition: good Instructed on the need for admit. 01:18 Patient left the ED. lg3 Signatures: Dispatcher [employer] EDMS Kang Clemente PA PA cp Wise, Tara RN RN tw2 Nita Watson RN RN lg3 Shasta Rivera, RN RN vg1 Lalita Langley RN RN jg9
--- NOTE | 2021-06-07 22:33 | EDPHYS ---
Physician Documentation [facility] Name: Rachael Knox Age: 36 yrs Sex: Female : 1985 Arrival Date: 06/07/2021 Time: 16:57 Bed 5 Private MD: ED Physician Rajan Samuel HPI: 06/07 18:15 This 36 yrs old Female presents to ER via EMS with complaints of Abdominal cp Pain. 18:15 The patient presents with abdominal pain in the left upper quadrant, in the left lower cp quadrant, left flank. 18:15 Onset: The symptoms/episode began/occurred yesterday, and became worse today. cp Associated signs and symptoms: Pertinent negatives: chest pain, constipation, diarrhea, dysuria, fever, vomiting. The symptoms are described as constant. Severity of pain: in the emergency department the pain is unchanged despite home interventions. MANUGRAPHER: 17:07 LMP 04/30/2021 vg1 Historical: - Allergies: 17:07 Azithromycin; vg1 17:07 mycins; vg1 17:07 Bactrim; vg1 17:07 PENICILLINS; vg1 17:07 Sulfa (Sulfonamide Antibiotics); vg1 - PMHx: 17:07 Anemia; Anxiety; Asthma; Bipolar disorder; Hypertension; Hypothyroidism; vg1 - PSHx: 17:07 Tonsillectomy; section; vg1 - Immunization history:: Client reports having NOT received the Covid vaccine. - Social history:: Smoking status: Patient denies any tobacco usage or history of. ROS: 18:20 Constitutional: Negative for body aches, chills, fever, poor PO intake. cp 18:20 Eyes: Negative for injury, pain, redness, and discharge. cp 18:20 ENT: Negative for drainage from ear(s), ear pain, sore throat, difficulty swallowing, difficulty handling secretions. 18:20 Cardiovascular: Negative for chest pain, palpitations. 18:20 Respiratory: Negative for cough. 18:20 Abdomen/GI: Positive for abdominal pain, of the anterior aspect of left lateral abdomen, left upper quadrant and left lower quadrant, Negative for vomiting, diarrhea, constipation. 18:20 Back: Positive for flank pain, on the left. 18:20 Neuro: Negative for altered mental status, headache, weakness. 18:20 All other systems are negative. Exam: 18:25 Constitutional: The patient appears in no acute distress, alert, awake, cp non-diaphoretic, non-toxic, well developed, well nourished, obese. 18:25 Head/Face: Normocephalic, atraumatic. cp 18:25 Eyes: Periorbital structures: appear normal, Pupils: equal, round, and reactive to light and accomodation, Extraocular movements: intact throughout, Conjunctiva: normal, no exudate, no injection, Sclera: no appreciated abnormality, Lids and lashes: appear normal, bilaterally. 18:25 ENT: External ear(s): are unremarkable, Nose: is normal, Mouth: Lips: dry, Oral mucosa: moist, Posterior pharynx: Airway: no evidence of obstruction, patent, erythema, is not appreciated, exudate, is not appreciated. 18:25 Neck: ROM/movement: is normal, is supple, without pain, no range of motions limitations. 18:25 Chest/axilla: Inspection: normal. 18:25 Cardiovascular: Rate: normal, Rhythm: regular, Edema: ankle edema, that is mild, JVD: is not appreciated. 18:25 Respiratory: the patient does not display signs of respiratory distress, Respirations: labored breathing, that is mild, intercostal retractions, are absent, Breath sounds: decreased breath sounds, that are mild, throughout, stridor, is not appreciated, wheezing: is not appreciated. 18:25 Abdomen/GI: Inspection: obese Bowel sounds: active, all quadrants, Palpation: soft, in all quadrants, moderate abdominal tenderness, in the anterior aspect of left lateral abdomen, left upper quadrant and left lower quadrant, rebound tenderness, is not appreciated, involuntary guarding, is not appreciated. 18:25 Back: CVA tenderness, is absent. 18:25 Skin: cellulitis, is not appreciated, no rash present. 18:25 Neuro: Orientation: to person, place \\T\\ time. Mentation: able to follow commands, slow to respond, Motor: moves all fours, strength is normal, Sensation: is normal. 19:10 ECG was reviewed by the Attending Physician. cp Vital Signs: 16:59 BP 128 / 56; Pulse 88; Resp 20; Temp 97.4; Pulse Ox 94% on 3 lpm NC; Weight 151.95 kg; vg1 Height 5 ft. 5 in. (165.10 cm); Pain 10/10; 18:17 BP 132 / 81; Pulse 93; Resp 15; Pulse Ox 100% on 3 lpm NC; tw2 21:31 BP 133 / 91; Pulse 79; Resp 18; Pulse Ox 93% on 3 lpm NC; lg3 23:24 BP 113 / 71; Pulse 84; Resp 16 S; Pulse Ox 98% ; lg3 16:59 Body Mass Index 55.75 (151.95 kg, 165.10 cm) vg1 MDM: 18:16 Patient medically screened. cp 19:00 Differential diagnosis: appendicitis, bowel obstruction, cholecystitis, Cholelithiasis, cp diverticulitis, Ovarian Torsion, pancreatitis, Pelvic Inflammatory Disease, Pyelonephritis, Ureterolithiasis, urinary tract infection. 22:30 Data reviewed: vital signs, nurses notes, lab test result(s), radiologic studies, CT cp scan, plain films. 22:30 Counseling: I had a detailed discussion with the patient and/or guardian regarding: the cp historical points, exam findings, and any diagnostic results supporting the discharge/admit diagnosis, lab results, radiology results, the need for further work-up and treatment in the hospital. Response to treatment: Pain improved, oxygen sats improved with supplemental oxygen. Will admit for hypoxia. Physician consultation: Bogdan SANDERS was called at 22:25, was contacted at 22:25, regarding admission, to the telemetry unit. patient's condition. 06/07 18:07 Order name: Urine Microscopic Only; Complete Time: 19:30 cp 06/07 20:21 Interpretation: Normal except: UBACT >50; SQEPI 20-50. cp 06/07 18:17 Order name: Magnesium; Complete Time: 19:30 cp 06/07 18:17 Order name: Basic Metabolic Panel; Complete Time: 19:30 cp 06/07 21:13 Interpretation: Normal except: GFR 56. cp 06/07 18:17 Order name: CBC with Diff; Complete Time: 19:30 cp 06/07 20:21 Interpretation: Normal except: RBC 3.56; HGB 11.0; HCT 33.3; ABRAHAM% 75.9; LYM% 12.0; cp EOSINOPHIL % 4.7. 06/07 18:17 Order name: LFT's; Complete Time: 19:30 cp 06/07 21:14 Interpretation: Normal except: AST 46; GLOB 3.8; A/G 1.0. cp 06/07 18:17 Order name: NT PRO-BNP; Complete Time: 19:30 cp 06/07 18:17 Order name: XRAY Chest (1 view); Complete Time: 19:34 cp 06/07 18:17 Order name: PT-INR; Complete Time: 19:30 cp 06/07 18:17 Order name: Troponin HS; Complete Time: 19:30 cp 06/07 21:14 Interpretation: Reviewed. cp 06/07 18:17 Order name: Lipase; Complete Time: 19:30 cp 06/07 18:38 Order name: Urine Dipstick-Ancillary; Complete Time: 19:30 EDMS 06/07 18:43 Order name: Urine --Ancillary (enter results); Complete Time: 19:30 eb 06/07 19:32 Order name: COVID-19/FLU A+B (Document "Date of Onset" if Symptomatic); Complete Time: cp 21:06/07 21:13 Interpretation: Reviewed. cp 06/07 18:07 Order name: Urine Dipstick-Ancillary (obtain specimen); Complete Time: 19:00 cp 06/07 18:07 Order name: Urine Test (obtain specimen); Complete Time: 19:00 cp 06/07 18:17 Order name: EKG; Complete Time: 18:18 cp 06/07 18:17 Order name: Cardiac monitoring; Complete Time: 18:19 cp 06/07 18:17 Order name: EKG - Nurse/Tech; Complete Time: 19:10 cp 06/07 18:17 Order name: IV Saline Lock; Complete Time: 19:00 cp 06/07 18:17 Order name: Labs collected and sent; Complete Time: 19:00 cp 06/07 21:19 Order name: CT Stone Protocol cp 06/07 22:07 Order name: US Transvaginal Study (Probe) cp 06/07 18:17 Order name: O2 Per Protocol; Complete Time: 18:18 cp 06/07 18:17 Order name: O2 Sat Monitoring; Complete Time: 18:18 cp EC:10 Rate is 78 beats/min. Rhythm is regular. QRS interval is normal. QT interval is normal. cp Interpreted by me. Reviewed by me. Administered Medications: 20:00 Drug: morphine 4 mg Route: IVP; Site: left antecubital; lg3 20:01 Follow up: Response: No adverse reaction; RASS: Alert and Calm (0) lg3 20:00 Drug: Zofran (Ondansetron) 4 mg Route: IVP; Site: left antecubital; lg3 20:00 Follow up: Response: No adverse reaction lg3 20:00 Drug: SOLU-Medrol (methylPrednisoLONE) 125 mg Route: IVP; Site: left antecubital; lg3 20:00 Follow up: Response: No adverse reaction lg3 21:31 Drug: morphine 4 mg Route: IVP; Site: left antecubital; lg3 21:31 Follow up: Response: No adverse reaction; RASS: Alert and Calm (0) lg3 23:10 Drug: Albuterol - atroVENT (ipratropium) (3:1) (2.5 mg - 0.5 mg) 3 ml Route: Nebulizer; lg3 23:10 Follow up: Response: No adverse reaction lg3 23:10 Drug: Ativan (LORazepam) 1 mg Route: PO; lg3 23:10 Follow up: Response: No adverse reaction lg3 Point of Care Testing: Urine : 19:00 hCG Reading: Negative; Control Reading: Positive; jg9 Disposition: 06/08 07:45 Co-signature as Attending Physician, Rajan Samuel MD I agree with the assessment and kdr plan of care. Disposition Summary: 06/07/21 22:32 Hospitalization Ordered Hospitalization Status: Inpatient Admission cp Provider: Graeme Joy cp Location: Telemetry/MedSurg (Inpatient) cp Condition: Stable cp Problem: an acute exacerbation cp Symptoms: have improved cp Bed/Room Type: Standard cp Room Assignment: 208(06/08/21 00:21) mw Diagnosis - Unspecified asthma with (acute) exacerbation cp Forms: - Medication Reconciliation Form cp - SBAR form cp Signatures: Dispatcher [employer] Blanca Nunez RN RN mw Rittger, Kevin, MD MD kdr Page, Corey, PA PA cp Nita Watson RN RN lg3 Shasta Rivera RN RN vg1 Corrections: (The following items were deleted from the chart) 06/07 21:25 19:35 Chest For PE Angio+CT.RAD.BRZ ordered. EDMS EDMS 21:25 19:35 Abdomen Pelvis W Con+CT.RAD.BRZ ordered. EDMS EDMS 06/08 00:21 06/07 22:32 cp mw
[2021-06-07] MEDS ORDERED: LORAZEPAM 1 MG TABLET ONE (23:06)
[2021-06-07] MEDS ORDERED: ALBUTEROL 2.5 MG/3 ML NEB SOL ONE (23:06)
--- NOTE | 2021-06-08 00:24 | P.HP ---
Certification for Inpatient Patient admitted to: Inpatient With expected LOS: <2 Midnights Patient will require the following post-hospital care: None Practitioner: I am a practitioner with admitting privileges, knowledge of patient current condition, hospital course, and medical plan of care. Services: Services provided to patient in accordance with Admission requirements found in Title 42 Section 412.3 of the Code of Federal Regulations Patient History Date of Service: 06/08/21 Reason for admission: asthma exacerbation History of Present Illness: Ms. Knox is a 36 yo F with history of hypothyroidism and asthma who presents with 10/10 LUQ abdominal pain. She says that since yesterday she feels like her ovaries are 'twisting' and like she is being 'kicked in the stomach.' She also reports anorexia and nausea. Denies fever, vomiting, constipation or diarrhea. She was hypoxic into the 80s upon arrival, now sats in the 90s on 2L NC. She says since she had COVID in July, her oxygen levels fluctuate. CXR IMPRESSION: The lungs appear mildly hazy which may indicate mild interstitial pulmonary edema or pneumonia CT IMPRESSION: Tiny nonobstructing left renal calculi 4.1 centimeter right ovarian cyst without significant free fluid. Borderline enlargement of the appendix of uncertain significance. If the patient has clinical symptoms to suggest appendicitis then a CT scan with IV and oral contrast with opacification of the terminal ileum/cecum would be recommended for further evaluation. Allergies erythromycin base Allergy (Verified 02/05/19 17:45) unknown Penicillins Allergy (Verified 02/05/19 17:45) Unknown Sulfa (Sulfonamide Antibiotics) Allergy (Verified 02/05/19 17:45) Unknown sulfamethoxazole [From Bactrim] Allergy (Verified 02/05/19 17:45) Unknown trimethoprim [From Bactrim] Allergy (Verified 02/05/19 17:45) Unknown Home Medications: Apixaban [Eliquis] 5 mg PO BID 30 Days #60 tablet 08/10/20 Ascorbic Acid [Vitamin C*] 500 mg PO QID 30 Days tablet 08/10/20 Cholecalciferol (Vitamin D3) [Vitamin D 1000 Iu Tab*] 4,000 unit PO DAILY 30 Days tab 08/10/20 Levothyroxine Sodium [Synthroid] 150 mcg PO DAILY 30 Days #30 tablet 08/10/20 Thiamine HCl [Vitamin B-1*] 200 mg PO DAILY 30 Days #30 tablet 08/10/20 Zinc Sulfate [Zinc Sulfate*] 220 mg PO DAILY 30 Days cap 08/10/20 predniSONE [Prednisone] 20 mg PO SEECOM #21 tablet 08/10/20 - Past Medical/Surgical History Diabetic: No -: hypothyroidism -: anxiety -: depression -: bipolar -: Asthma -: Anxiety -: c section -: tubal ligation -: tonsillectomy -: Adenoidectomy Psychosocial/ Personal History: 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 - Family History Father -: Other (see notes) Notes: drug addict Mother -: Heart disease, Hypertension, Lung disease, Diabetes, Stroke, Other (see notes) Notes: copd,chf - Social History Smoking Status: Never smoker Alcohol use: No CD- Drugs: No Caffeine use: Yes Review of Systems 10-point ROS is otherwise unremarkable General: Unremarkable Eyes: Unremarkable ENT: Unremarkable Respiratory: Unremarkable Cardiovascular: Unremarkable Gastrointestinal: Nausea, Vomiting, Abdominal Pain Genitourinary: Unremarkable Musculoskeletal: Unremarkable Integumentary: Unremarkable Neurological: Unremarkable Lymphatics: Unremarkable Physical Examination - Physical Exam General: Alert, In no apparent distress, Obese HEENT: Atraumatic, PERRLA, Mucous membr. moist/pink, EOMI, Sclerae nonicteric Neck: Supple, 2+ carotid pulse no bruit, No LAD, Without JVD or thyroid abnormality Respiratory: Normal air movement, Expiratory wheezes Cardiovascular: Regular rate/rhythm, Normal S1 S2 Gastrointestinal: Normal bowel sounds, No ascites, No masses, No rebound, No guarding, Tenderness Musculoskeletal: No tenderness Integumentary: No rashes Neurological: Normal speech, Normal strength at 5/5 x4 extr, Normal tone, Normal affect Lymphatics: No axilla or inguinal lymphadenopathy - Studies Laboratory Data (last 24 hrs) 06/07/21 18:15: PT 11.6, INR 1.01 06/07/21 18:15: WBC 9.60, Hgb 11.0 L, Hct 33.3 L, Plt Count 184 06/07/21 18:15: Sodium 140, Potassium 3.6, BUN 9, Creatinine 1.09, Glucose 92, Magnesium 2.5 H, Total Bilirubin 0.5, AST 46 H, ALT 27, Alkaline Phosphatase 53, Lipase 76 Assessment and Plan - Problems (Diagnosis) (1) Abdominal pain Current Visit: Yes Status: Acute Qualifiers: Abdominal location: left upper quadrant Qualified Code(s): R10.12 - Left upper quadrant pain (2) Asthma exacerbation Current Visit: Yes Status: Acute Qualifiers: Asthma severity: moderate Asthma persistence: unspecified Qualified Code(s): J45.901 - Unspecified asthma with (acute) exacerbation - Plan continue O2 as needed continue breathing treatments, oral steroids pain management as needed advance diet as tolerated procalcitonin pending, thyroid levels pending DVT ppx Discharge Plan: Home Plan to discharge in: 24 Hours - Advance Directives Does patient have a Living Will: No Does patient have a Durable POA for Healthcare: No - Code Status/Comfort Care Code Status Assessed: Yes (full code ) Critical Care: No Time Spent Managing Pts Care (In Minutes): 70
[2021-06-08 03:04] LABS: Thyroid Stimulating Hormone 40.2 uIU/mL (0.360-3.740)
[2021-06-08] MEDS: MORPHINE 2 MG/ML SYR IV PRN ×2 (05:47→14:50)
[2021-06-08] MEDS ORDERED: LEVOTHYROXINE SOD 0.075 MG TAB PO SCH (06:30)
[2021-06-08 06:43] LABS: Potassium 3.9 mmol/L (3.5-5.1)
[2021-06-08] MEDS: ENOXAPARIN 40 MG/0.4 ML SQ SCH (07:58)
[2021-06-08] MEDS: ACETAMINOPHEN 500 MG TAB PO PRN (08:52)
[2021-06-08] MEDS ORDERED: POTASSIUM CL SA 10 MEQ TAB PO ONE (09:00)
[2021-06-08] MEDS ORDERED: predniSONE 20 MG TAB PO SCH (09:00)
--- NOTE | 2021-06-08 13:40 | P.PN ---
Date of Service: 06/08/21 Patient seen and examined. Patient denies shortness of breath. She still complaining of pain which is more localized to the lower abdomen. She is maintained on 3 L oxygen by nasal cannula. CT abdomen and pelvis results reviewed and reporting right ovary cyst and borderline appendix diameter. Lower abdomen tender on examination, no focal point tenderness, no guarding no RBT. Will consult surgery to evaluate. Obtain blood gas to further explain her hypoxemia. I suspect she has hypercapnia and obesity hypoventilation syndrome. She may need home oxygen on discharge. Continue bronchodilators.
[2021-06-08] MEDS: ONDANSETRON 4 MG/2 ML VIAL IV PRN ×2 (14:50→18:29)
[2021-06-08 15:15] LABS: Urine Appearance TURBID (Clear); Urine Bilirubin NEGATIVE (Negative); Urine Blood NEGATIVE (Negative); Urine Color DK YELLOW (Yellow); Urine Glucose NEGATIVE (Negative); Urine Protein 1+ (Negative); Urine Specific Gravity >=1.030 (1.005-1.030)
[2021-06-08 15:46] LABS: Urine Microscopic Reflex ORDER UMIC
[2021-06-08 16:06] LABS: Urine Amorphous Sediment 4+ /HPF (NONE SEEN); Urine Bacteria <20 /HPF (<20); Urine RBC NONE SEEN /HPF (NONE SEEN)
[2021-06-08 16:19] LABS: Arterial Blood Carboxyhemoglob 1.2 % (0-1.5); Blood O2 Saturation 89.1 % (92-98.5)
[2021-06-08] MEDS: METHYLPREDNISOLONE 40 MG INJ IV SCH (17:42)
[2021-06-08] MEDS: ALBUTEROL 2.5 MG/3 ML NEB SOL NEB PRN (19:55)
[2021-06-08] MEDS: BUDESONIDE 0.5 MG/2 ML NEB NEB PRN (19:55)
[2021-06-08] MEDS: IPRATROPIUM BROM 0.5MG/2.5ML NEB PRN (19:55)
--- NOTE | 2021-06-08 23:47 | CON ---
Date of Consultation: 06/08/2021 Diagnoses: Hypoxia and abdominal pain. History Of Present Illness: This is a case of a 36-year-old patient admitted with asthma, for asthma treatment, also found to have epigastric tenderness. CAT scan was done shows ovarian cyst and also borderline appendix, although definitive diagnosis cannot be given. She is having this hypoxia event s and also chronic abdominal pain. She is morbidly obese. She defers mainly to the abdomen, epigast holly, and right upper quadrant area. Denies any dysuria, hematuria, hematochezia, or melena. Denies any recent traveling out of the country. Denies any fever. Denies any family member sick at home. Denies any constipation or diarrhea. Allergies: ERYTHROMYCIN, PENICILLIN, AND SULFA. Past Medical Problems: Include bipolar disorder, anxiety, hypothyroidism, and depression. Past Surgical History: Include , tubal ligation, tonsillectomy, adenoidectomy. Social History: She does not smoke. She does not drink alcohol. Family History: Includes heart disease and stroke. Review of Systems: The patient feels better. She is on CPAP machine right now. The abdomen also feels better. No naus ea. No vomiting. Physical Examination: General: Patient is awake and alert. HEENT: Pupils are equal and reactive, anicteric. Neck: Supple. Chest: Clear. Abdomen: Soft and depressible. Bowel sounds positive. Mild generalized discomfort with no guarding or rebound. No peritonitis. No psoas signs. No Montes signs. No Rovsing signs. Pelvic: Deferred. Rectal: Deferred. Extremities: Good capillary refill. Laboratory Data: WBC count is 9 with hemoglobin of 11. INR is 1.1, creatinine is 1.3. CAT scan of the abdomen and pelvis interpreted by Dr. Whittaker. Nonobstructing left kidney stone 4.1 cm right ov debbie cyst without significant free fluid and borderline enlargement of the appendix of uncertain sig nificance. Assessment: This is a 36-year-old patient comes to us with an asthma attack, also chronic abdominal pain. The CAT scan cannot define specifically the etiology of that pain. She is currently on a diet , but I am going to suggest the patient to be kept n.p.o. and repeat the CAT scan in the morning with p.o. or IV contrast that might help us once again investigate the etiology of this pain. She unders tands the options of diagnostic laparoscopy and any other anesthetic procedure. Obviously, she prefe rred not to go up for surgery, but the same time I asked her to allow me at least to repeat that CAT scan to make sure we are not missing any important pathology. MARCO/KARTHIK Voice ID: [id number] Report ID: [id number]
[2021-06-09] MEDS: MORPHINE 2 MG/ML SYR IV PRN ×2 (00:28→07:21)
[2021-06-09] MEDS: ONDANSETRON 4 MG/2 ML VIAL IV PRN ×2 (00:28→07:21)
[2021-06-09] MEDS: METHYLPREDNISOLONE 40 MG INJ IV SCH ×2 (00:29→09:59)
[2021-06-09 06:25] LABS: Absolute Lymphocytes (CBC) 0.8 K/uL (0.7-4.9); Hematocrit 31.5 % (36.0-45.0); Lymphocytes % 4.7 % (15.3-44.8); MPV 9.6 fL (7.6-11.3); RBC Red Blood Cell Count 3.35 M/uL (3.86-4.86)
[2021-06-09] MEDS: LEVOTHYROXINE SOD 0.075 MG TAB PO SCH (06:30)
[2021-06-09 06:51] LABS: Albumin 3.7 g/dL (3.4-5.0); Bilirubin Total 0.3 mg/dL (0.2-1.0); Magnesium 2.5 mg/dL (1.8-2.4); Phosphorus 3.3 mg/dL (2.5-4.9); Potassium 4.5 mmol/L (3.5-5.1); Protein, Total 7.7 g/dL (6.4-8.2)
[2021-06-09] MEDS: BUDESONIDE 0.5 MG/2 ML NEB NEB PRN (07:35)
[2021-06-09] MEDS: ALBUTEROL 2.5 MG/3 ML NEB SOL NEB PRN (07:35)
[2021-06-09] MEDS: IPRATROPIUM BROM 0.5MG/2.5ML NEB PRN (07:35)
[2021-06-09] MEDS: FERROUS SULFATE 325 MG TAB PO SCH (09:00)
[2021-06-09] MEDS: ENOXAPARIN 40 MG/0.4 ML SQ SCH (09:00)
[2021-06-09] MEDS ORDERED: HOME MED 1 EA UNK (Levothyroxine Sodium [Synthroid] 150 MCG Tablet) PO SCH (09:00)
[2021-06-09] MEDS: ZINC SULFATE 220 MG CAP PO SCH (09:00)
[2021-06-09] MEDS: VITAMIN D 1000 UNIT TAB PO SCH (09:00)
[2021-06-09] MEDS ORDERED: MORPHINE 2 MG/ML SYR IV ONE (09:13)
[2021-06-09 10:12] LABS: Blood Morphology Comment NOT SEEN (NOT SEEN); Platelet Estimate ADEQ
--- NOTE | 2021-06-09 11:39 | P.PN ---
Subjective Date of Service: 06/09/21 Chief Complaint: asthma exacerbation Patient complaining of persistent lower abdominal pain. She mentioned this time the abdominal pain is localized to the lower abdomen. She used BiPAP last night. Physical Examination - Vital Signs Temperature: 97 F Blood Pressure: 115/65 Pulse: 74 Respirations: 18 Pulse Ox (%): 92 - Physical Exam General: In no apparent distress, Oriented x3, Obese (Morbidly obese) HEENT: Mucous membr. moist/pink Neck: JVD not distended Respiratory: Diminished (Bilateral) Cardiovascular: No edema, Regular rate/rhythm, Normal S1 S2 Gastrointestinal: Soft and benign, Non-distended Musculoskeletal: No swelling Integumentary: No rashes Neurological: Normal strength at 5/5 x4 extr Assessment And Plan - Current Problems (Diagnosis) (1) Acute respiratory failure with hypoxia and hypercapnia Current Visit: Yes Status: Acute (2) Abdominal pain Current Visit: Yes Status: Acute Qualifiers: Abdominal location: left upper quadrant Qualified Code(s): R10.12 - Left upper quadrant pain (3) Asthma exacerbation Current Visit: Yes Status: Acute Qualifiers: Asthma severity: moderate Asthma persistence: unspecified Qualified Code(s): J45.901 - Unspecified asthma with (acute) exacerbation (4) Obesity hypoventilation syndrome Current Visit: Yes Status: Acute - Plan Continue scheduled bronchodilators and steroids for asthma. CT abdomen pelvis reported borderline appendix and ovarian cyst. Case discussed with Dr. Kwon who recommended repeat CT abdomen. Covering with antibiotics. IV morphine as needed for pain. Keep n.p.o. today until CT scan results. Use CPAP during sleep for obstructive sleep apnea and obesity hypoventilation.
--- NOTE | 2021-06-09 11:58 | RAD REPORT ---
EXAM DESCRIPTION: CTAbdomen Pelvis W Contrast - 06/09/2021 11:49 am CLINICAL HISTORY: Abdominal pain. abdomnal pain COMPARISON: Abdomen Pelvis W Contrast dated 02/23/2020; Abdomen Pelvis W Contrast dated 10/11/2017 ; Stone Protocol dated 06/07/2021 TECHNIQUE: Biphasic CT imaging of the abdomen and pelvis was performed with 100 ml non-ionic IV cont rast. All CT scans are performed using dose optimization technique as appropriate and may include automated exposure control or mA/KV adjustment according to patient size. FINDINGS: Linear opacities are present in both lung bases, greater on the right, most compatible wit h subsegmental atelectasis. Diffuse fatty liver is present. No focal liver lesion. The spleen, pancreas, adrenal glands and kidne ys are within normal limits. No bowel obstruction, free air, free fluid or abscess. The base of the appendix is thickened to 10 m m with thickening along the cecal mucosa at the origin of the appendix. The distal appendix is normal . No oral contrast is seen filling the appendix. Small fat containing umbilical hernia. No evidence o f significant lymphadenopathy. No suspicious bony findings. 4 cm right ovarian cyst. IMPRESSION: Early appendicitis findings involving the base of the appendix suspected.
[2021-06-09] MEDS ORDERED: LICE TREATMENT 1 APPL/120 ML BTL TOP ONE (12:15)
[2021-06-09] MEDS ORDERED: METRONIDAZOLE 500mg IVPB 500 MG/100 ML BAG IV ONE (12:48)
[2021-06-09] MEDS ORDERED: CIPROFLOXACIN 400mg IV 400 MG/200 ML BAG IV ONE (12:48)
[2021-06-09] MEDS ORDERED: LIDOCAINE 1% MPF 5 ML VIAL ONE (13:08)
[2021-06-09] MEDS ORDERED: propofoL 200 MG/20 ML VIAL IV ONE (13:08)
[2021-06-09] MEDS ORDERED: ALBUTEROL INHALER 60 PUFF/8 GM IH ONE (13:08)
[2021-06-09] MEDS ORDERED: ROCURONIUM 50 MG/5 ML VIAL IV ONE (13:08)
[2021-06-09] MEDS ORDERED: FENTANYL CITR 100 MCG/2 ML ONE (13:09)
[2021-06-09] MEDS ORDERED: SUCCINYLCHOLINE 20 MG/ML (10 ML) IV ONE ×2 (13:17→14:50)
[2021-06-09] MEDS: Ringers Lactate 1,000 ML IV ONE ×2 (13:25→13:56)
[2021-06-09] MEDS ORDERED: dexAMETHasone 10 MG/ML VIAL ONE (14:37)
[2021-06-09] MEDS ORDERED: KETOROLAC 30 MG/ML INJ ONE (14:37)
[2021-06-09] MEDS ORDERED: ONDANSETRON 4 MG/2 ML VIAL ONE (14:38)
[2021-06-09] MEDS ORDERED: SUGAMMADEX SODIUM 200 MG/2 ML VIAL IV ONE (14:47)
--- NOTE | 2021-06-09 15:14 | P.BOP ---
Preoperative diagnosis: Acute appendicitis, intractable abd pain, ovarian cyst, morbid obesity Postoperative diagnosis: same, umbilical hernia Primary procedure: Diagnostic laparoscopy, lap appendectomy Secondary procedure: umbilical hernia repair Estimated blood loss: <10cc Specimen: appendix, sac Findings: as above Anesthesia: General Complications: None Transferred to: Recovery Room Condition: Good
[2021-06-09] MEDS ORDERED: MIDAZOLAM HCL 2 MG/2 ML INJ ONE ×3 (15:22→16:20)
[2021-06-09] MEDS ORDERED: IPRATROPIUM BROM 0.5MG/2.5ML ONE (16:10)
[2021-06-09] MEDS ORDERED: HYDROMORPHONE HCL 1 MG/ML INJ ONE (16:20)
[2021-06-09] MEDS ORDERED: propofoL 1,000 MG/100 ML VIAL IV ONE (16:21)
[2021-06-09] MEDS: METRONIDAZOLE 500mg IVPB 500 MG/100 ML BAG IV SCH (17:00)
--- NOTE | 2021-06-09 17:11 | RAD REPORT ---
EXAM DESCRIPTION: RAD - Chest Single View - 06/09/2021 5:03 pm CLINICAL HISTORY: ET TUBE PLACEMENT Chest pain. COMPARISON: Chest Single View dated 06/07/2021; Chest Single View dated 04/14/2021; Chest Single View dated 10/26/2020; Chest Single View dated 08/15/2020 FINDINGS: Portable technique limits examination quality. Tip of the endotracheal tube is at the level of aortic arch and above the greyson. The lungs are mildl y underinflated. The heart is mildly prominent in size.
--- NOTE | 2021-06-09 17:20 | P.PN ---
CT abdomen and pelvis with IV contrast suggested early appendicitis. Uneventful laparoscopic appendectomy performed by Dr. Kown under general anesthesia. Diagnosis was simple appendicitis. No drains. Umbilical hernia repair done. Patient hypoxic and kept intubated after the surgery. Patient requiring 100% FiO2 and cannot be extubated at this time. She needs to be in the ICU. I am told no ICU bed is available. Nursing supervising make an effort to have patient transferred to another facility for ICU care. Currently stable on the vent.
[2021-06-09] MEDS: propofoL 1,000 MG/100 ML VIAL IV PRN (20:30)
[2021-06-09] MEDS: Ciprofloxacin 200mg IV 200 MG/100 ML IV.SOLN. IV SCH (21:54)
[2021-06-09] MEDS: FENTANYL CITR 100 MCG/2 ML IV PRN (21:55)
[2021-06-09] MEDS: FAMOTIDINE 20 MG/2 ML VIAL IV SCH (21:55)
--- NOTE | 2021-06-09 22:41 | RAD REPORT ---
EXAM DESCRIPTION: US - Transvaginal Study Probe - 06/07/2021 11:08 pm CLINICAL HISTORY: Right ovarian cyst. COMPARISON: None. TECHNIQUE: Real-time grayscale and color Doppler images of the pelvis were obtained utilizing transa bdominal and transvaginal technique. FINDINGS: Uterus: 5 x 6 x 10.1 cm. Endometrium measures 0.6 cm in thickness. There are multiple sm all endocervical and nabothian cysts. Right ovary: 3.4 x 3.7 x 5.2 cm (volume 40.3 mL). Normal arterial flow. No concerning lesions. Ther e is a simple right ovarian cyst which measures 3.7 cm. Left ovary not visualized on transabdominal or transvaginal pelvic imaging, due to patient body habit us. Cul-de-sac: No free fluid identified. IMPRESSION: 1. Dominant follicle in the right ovary measures 3.7 cm (no follow-up imaging is recom mended). 2. Normal flow in the right ovary with no evidence of torsion. 3. Nonvisualization of the left ovary. Electronically signed by: Rosalie Frey MD 06/07/2021 11:24 PM [facility] Due to temporary technical issues with the PACS/Fluency reporting system, reports are being signed by the in house radiologists without review as a courtesy to insure prompt reporting. The interpreting radiologist is fully responsible for the content of the report.
[2021-06-09] MEDS: LORazepam 2 MG/ML VIAL IV PRN (22:49)
[2021-06-10] MEDS: propofoL 1,000 MG/100 ML VIAL IV PRN ×8 (00:15→21:39)
[2021-06-10] MEDS: MIDAZOLAM HCL 2 MG/2 ML INJ IV PRN ×2 (00:20→08:00)
--- NOTE | 2021-06-10 00:24 | OP ---
Date of Procedure: 06/08/2021 Surgeon: Raymundo Kwon MD Preoperative Diagnoses: 1.Intractable abdominal pain. 2.Acute appendicitis. 3.Morbid obesity. 4.Hypoxia. 5.Sleep apnea. Postoperative Diagnoses: 1.Intractable abdominal pain. 2.Acute appendicitis. 3.Morbid obesity. 4.Hypoxia. 5.Sleep apnea. 6.Umbilical hernia. Procedures: 1.Diagnostic laparoscopy. 2.Laparoscopic appendectomy. 3.Repair of umbilical hernia. Estimated Blood Loss: Less than 10 mL. Specimen: Appendix and hernia sac. Finding: Acute appendicitis. Anesthesia: General plus local. Complications: None. Indication: This is the case of a 36-year-old patient, who comes to us with intractable abdominal pa in. The patient is morbidly obese with almost 400 pounds. CAT scan initially cannot rule out append ix as a cause of the abdominal pain. A repeat CAT scan was recommended with p.o. and IV contrast. T he second CAT scan was reviewed by also another radiologist and confirmed the appendix still looking not normal and borderline distended. Cannot rule out appendicitis. So, we explained to the patient the options that we have including diagnostic laparoscopic, possible open appendectomy with benefits, alternatives, and risks including, but not limited to infection, bleeding, damage to adjacent struct ures, anesthesia complication, negative appendix, MS, and even . She also understands this may not relieve her symptoms. She might need more than one surgical intervention. She also was explaine d the importance of losing weight. She is almost 400 pounds, putting her at risk for so many other c omorbidities including hypoxia, DVTs, PEs, abscess. She understands and she is going to trying to wo rk on that. In the meantime, we advised the OR about the case and booked the case emergently. Description Of Procedure: The patient was brought to the operating room, placed in supine position. Anesthesia was done without complication. Abdominal area was prepped and draped in a sterile fashio n. Local anesthesia was applied followed by sharp incision of the skin in the infraumbilical region. Incision was carried down to fascia, which was opened under direct vision. We noted the patient to have umbilical hernia. At this moment, we were able to remove the hernia sac. This area looks weak , but we were able to put some stitches to close the hernia, which she might need a revision in the f uture, if she developed recurrence and she may need a mesh in that region, but this is not the time t o do so, especially when you have an inflamed appendix. So, after that we put a Deborah trocar. Pneu moperitoneum was obtained. We placed 2 more trocars, 5 mm each one of them suprapubic and left lower quadrant under direct visualization. This helped us to visualize the area of the abdomen. The live r with no masses, at least anteriorly. Stomach soft and compressible. The small bowel with no defin itive pathology, large bowel the same way except the mid appendix is asymmetrical in shape and color consistent with the findings of the CAT scan, so diagnosed with acute appendicitis, so we created a w indow in the base of the appendix, transected that with an Endo-LETHA 45 mm regular and then the mesoap pendix with the Endo-LETHA 45 mm vascular. Appendix removed from abdominal cavity using EndoCatch thro ugh umbilical incision. The area was inspected once again the mesoappendix and the area of the appen sade shows no bleeding, no bowel leak. At that moment, I proceeded to remove the trocars under direct vision. Deflated pneumoperitoneum, closed the fascia with #1 Vicryl, irrigated subcutaneous tissue, closed with 3-0 chromic and skin with parris. Sponge count, instrument counts correct. Patient to lerated the procedure well. Patient was on her way to Recovery in stable condition. We encouraged early ambulation, incentive spirometry. We will hold her Lovenox today. We will restart tomorrow ELAINA Meza. MARCO/KARTHIK Voice ID: [id number] Report ID: [id number]
[2021-06-10] MEDS: METHYLPREDNISOLONE 40 MG INJ IV SCH ×3 (00:55→08:52)
[2021-06-10] MEDS: METRONIDAZOLE 500mg IVPB 500 MG/100 ML BAG IV SCH ×3 (00:55→17:12)
[2021-06-10] MEDS: LORazepam 2 MG/ML VIAL IV PRN ×2 (01:00→07:59)
[2021-06-10] MEDS: FENTANYL CITR 100 MCG/2 ML IV PRN ×4 (02:00→22:35)
[2021-06-10] MEDS: LEVOTHYROXINE SOD 0.075 MG TAB PO SCH (06:29)
[2021-06-10 06:49] LABS: Blood Gas Oxyhemoglobin 89.2 % (94-97); Blood O2 Saturation 91.6 % (92-98.5)
[2021-06-10] MEDS: FAMOTIDINE 20 MG/2 ML VIAL IV SCH ×2 (07:59→20:55)
[2021-06-10] MEDS: Ciprofloxacin 200mg IV 200 MG/100 ML IV.SOLN. IV SCH ×2 (08:01→20:55)
[2021-06-10] MEDS: ALBUTEROL 2.5 MG/3 ML NEB SOL NEB PRN (08:15)
[2021-06-10] MEDS: IPRATROPIUM BROM 0.5MG/2.5ML NEB PRN (08:15)
[2021-06-10] MEDS: FERROUS SULFATE 325 MG TAB PO SCH (08:52)
[2021-06-10] MEDS: ZINC SULFATE 220 MG CAP PO SCH (08:52)
[2021-06-10] MEDS: VITAMIN D 1000 UNIT TAB PO SCH (08:52)
[2021-06-10 09:13] LABS: Lymphocytes % 5.6 % (15.3-44.8)
[2021-06-10 09:36] LABS: Albumin 3.7 g/dL (3.4-5.0); Bilirubin Total 0.3 mg/dL (0.2-1.0); Potassium 4.4 mmol/L (3.5-5.1); Protein, Total 7.5 g/dL (6.4-8.2)
--- NOTE | 2021-06-10 12:40 | P.CNS ---
Date of Consult: 06/10/21 Reason for Consult: Respiratory failure Chief Complaint: asthma exacerbation History of Present Illness: Patient is 36 years of age with a history of hypothyroidism asthma. With abdominal pain underwent laparoscopic appendectomy was unable to wean her off the ventilator currently was right mainstem was intubated after ruling out the tube patient is doing much better Allergies erythromycin base Allergy (Verified 06/08/21 01:32) unknown Penicillins Allergy (Verified 06/08/21 01:32) Unknown Sulfa (Sulfonamide Antibiotics) Allergy (Verified 06/08/21 01:32) Unknown sulfamethoxazole [From Bactrim] Allergy (Verified 06/08/21 01:32) Unknown trimethoprim [From Bactrim] Allergy (Verified 06/08/21 01:32) Unknown Home Medications: Cholecalciferol (Vitamin D3) [Vitamin D 1000 Iu Tab*] 4,000 unit PO DAILY 30 Days tab 08/10/20 Levothyroxine Sodium [Synthroid] 150 mcg PO DAILY 30 Days #30 tablet 08/10/20 Zinc Sulfate [Zinc Sulfate*] 220 mg PO DAILY 30 Days cap 08/10/20 Albuterol Neb [Proventil 0.083% Neb Soln] 1 amp IH Q6H PRN 06/08/21 Albuterol Sulfate [Proair Hfa] 2 puff IH Q4H PRN 06/08/21 Ascorbic Acid [Vitamin C*] 500 mg PO DAILY 06/08/21 Budesonide [Pulmicort] 1 amp NEB BID PRN 06/08/21 Ferrous Sulfate [Iron] 325 mg PO DAILY 06/08/21 Lorazepam [Ativan] 1 mg PO Q4H PRN 06/08/21 - Past Medical/Surgical History Diabetic: No -: hypothyroidism -: anxiety -: depression -: bipolar -: Asthma -: Anxiety -: COVID pneumonia -: c section -: tubal ligation -: tonsillectomy -: Adenoidectomy Psychosocial/ Personal History: 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 - Family History Father Medical History: Other (see notes) Notes: drug addict Mother Medical History: Heart disease, Hypertension, Lung disease, Diabetes, Stroke, Other (see notes) Notes: copd,chf - Social History Smoking Status: Current every day smoker Alcohol use: No CD- Drugs: No Caffeine use: Yes Place of Residence: Home Review of Systems is unable to be obtained Physical Examination Temp Pulse Resp BP Pulse Ox 96.9 F 66 12 118/78 93 06/10/21 08:00 06/10/21 12:00 06/10/21 11:00 06/10/21 12:00 06/10/21 12:00 General: Unresponsive Respiratory: Clear to auscultation bilaterally, Diminished - Problems (1) Acute respiratory failure with hypoxia and hypercapnia Current Visit: Yes Status: Acute Plan: Patient is 36 years of age postop laparoscopic appendectomy admitted with respiratory failure currently doing better patient's white count is elevated DC Solu-Medrol plan to wean and extubate patient is on antibiotic high risk for sleep apnea recent history of COVID infection was hospitalized
--- NOTE | 2021-06-10 13:50 | P.PN ---
Subjective Date of Service: 06/10/21 Chief Complaint: asthma exacerbation Status post lap appendectomy. Patient remained intubated after this procedure because she was hypoxic on the mechanical ventilation. Her oxygen saturation was in the 80s on 100% FiO2 on the vent. SPO2 improved after pulling back the ET tube which was suspected to be in the right main bronchus. Patient is sedated. Physical Examination - Vital Signs Temperature: 98.1 F Blood Pressure: 118/78 Pulse: 66 Respirations: 12 Pulse Ox (%): 93 - Physical Exam General: Obese, Other (Sedated) HEENT: Other (ET tube) Respiratory: Clear to auscultation bilaterally, Normal air movement Cardiovascular: No edema, Regular rate/rhythm, Normal S1 S2 Gastrointestinal: Soft and benign, Non-distended Musculoskeletal: No swelling Integumentary: No rashes, No cyanosis Neurological: Other (No focal motor deficit) Assessment And Plan - Current Problems (Diagnosis) (1) Acute respiratory failure with hypoxia and hypercapnia Current Visit: Yes Status: Acute (2) Abdominal pain Current Visit: Yes Status: Acute Qualifiers: Abdominal location: left upper quadrant Qualified Code(s): R10.12 - Left upper quadrant pain (3) Asthma exacerbation Current Visit: Yes Status: Acute Qualifiers: Asthma severity: moderate Asthma persistence: unspecified Qualified Code(s): J45.901 - Unspecified asthma with (acute) exacerbation (4) Obesity hypoventilation syndrome Current Visit: Yes Status: Acute (5) Acute appendicitis Current Visit: Yes Status: Acute - Plan Continue scheduled bronchodilators and steroids. Status post lap appendectomy and hernia repair Continue IV Flagyl and Cipro. IV morphine as needed for pain. Wean FiO2 as tolerated followed by weaning trial. Anticipating patient will need BiPAP after extubation Does not report of baseline hypoxia from previous COVID pneumonia, baseline obesity hypoventilation.
--- NOTE | 2021-06-10 13:54 | RAD REPORT ---
EXAM DESCRIPTION: RAD - Chest Single View - 06/10/2021 2:18 am CLINICAL HISTORY: S/P PICC insertion TECHNIQUE: Frontal view of the chest. COMPARISON: 06/09/2021 FINDINGS: Lungs: Low lung volumes. Patchy bibasilar opacities. Pleural space: Unremarkable. No pneumothorax. Heart: The cardiac silhouette is enlarged, stable. Mediastinum: Unremarkable. Bones/joints: Unremarkable. Tubes, lines and devices: Interval placement of a right upper extremity PICC. The tip projects over the mid to distal superior vena cava. Endotracheal tube tip projects 1.6 cm proximal to the greyson . Interval placement of a nasogastric tube. The tip is collimated off the [id number]. The distal visualized portion projects over the left upper quadrant in the expected region of the stomach. IMPRESSION: 1. Interval placement of a right upper extremity PICC. The tip projects over the mid t o distal superior vena cava. 2. Low lung volumes. Patchy bibasilar opacities (atelectasis and/or infiltrate). Electronically signed by: Primitivo Hart MD 06/10/2021 2:38 AM [employer] Due to temporary technical issues with the PACS/Fluency reporting system, reports are being signed by the in house radiologist without review as a courtesy to ensure prompt reporting. The interpreting r adiologist is fully responsible for the content of the report.
[2021-06-10] MEDS ORDERED: LICE TREATMENT 1 APPL/120 ML BTL TOP SCH (14:45)
[2021-06-10] MEDS: MORPHINE 4 MG/ML SYR IV PRN (15:49)
[2021-06-11] MEDS: propofoL 1,000 MG/100 ML VIAL IV PRN ×10 (00:54→23:32)
[2021-06-11] MEDS: METRONIDAZOLE 500mg IVPB 500 MG/100 ML BAG IV SCH ×3 (01:03→17:35)
[2021-06-11] MEDS: MORPHINE 4 MG/ML SYR IV PRN ×2 (02:38→08:11)
[2021-06-11] MEDS: FENTANYL CITR 100 MCG/2 ML IV PRN ×3 (05:12→21:09)
[2021-06-11 06:06] LABS: Albumin 3.3 g/dL (3.4-5.0); Bilirubin Total 0.3 mg/dL (0.2-1.0); Potassium 3.8 mmol/L (3.5-5.1); Protein, Total 6.6 g/dL (6.4-8.2)
--- NOTE | 2021-06-11 06:08 | P.PN ---
Date of Service: 06/11/21 Subjective: No acute events overnight. Remains intubated. Blood pressure is lownormal Still requiring 100% FiO2 this morning ROS: Unable to be obtained/sedated Physical Exam General: Obese, sedated HEENT: ETT in place Respiratory: Clear to auscultation bilaterally, slightly diminished at bases bilaterally Cardiovascular: No edema, Regular rate/rhythm, Normal S1 S2 Gastrointestinal: Soft, Non-distended Musculoskeletal: No swelling / erythema Integumentary: No rashes, No cyanosis Problem List Acute appendicitis s/p lap appy Acute hypoxemic respiratory failure with hypercapnia Asthma exacerbation h/o COVID pneumonia Obesity hypoventilation syndrome Continue scheduled bronchodilators and steroids. s/p lap appendectomy and hernia repair Continue IV Flagyl and Cipro. Wean FiO2 as tolerated followed by weaning trial. Pulmonology consulted Anticipating patient will need BiPAP after extubation still on 100% FIO2 this morning Unclear why patient is so hypoxic, possible PE. Bilateral venous ultrasounds ordered, will discuss with pulmonology, likely will need anticoagulation for now Code: full Dispo: Continue ICU level of care
[2021-06-11] MEDS: LEVOTHYROXINE SOD 0.075 MG TAB PO SCH (06:30)
[2021-06-11] MEDS: IPRATROPIUM BROM 0.5MG/2.5ML NEB PRN (08:13)
[2021-06-11] MEDS: BUDESONIDE 0.5 MG/2 ML NEB NEB PRN (08:13)
[2021-06-11] MEDS: ZINC SULFATE 220 MG CAP PO SCH (09:00)
[2021-06-11] MEDS: VITAMIN D 1000 UNIT TAB PO SCH (09:00)
[2021-06-11] MEDS: FERROUS SULFATE 325 MG TAB PO SCH (09:00)
[2021-06-11] MEDS: FAMOTIDINE 20 MG/2 ML VIAL IV SCH ×2 (10:15→22:28)
[2021-06-11] MEDS: HALOPERIDOL LACT 5 MG/ML INJ IV PRN (10:15)
[2021-06-11] MEDS: Ciprofloxacin 200mg IV 200 MG/100 ML IV.SOLN. IV SCH ×2 (10:23→21:08)
--- NOTE | 2021-06-11 12:18 | P.PN ---
Subjective Date of Service: 06/11/21 Chief Complaint: Respiratory failure No change patient is alert requiring 100% FiO2 Review of Systems is unable to be obtained Physical Examination - Vital Signs Temperature: 96.9 F Blood Pressure: 114/73 Pulse: 61 Respirations: 13 Pulse Ox (%): 91 - Physical Exam General: Alert, Cooperative Respiratory: Clear to auscultation bilaterally, Diminished Assessment & Plan - Problems (Diagnosis) (1) Acute respiratory failure with hypoxia and hypercapnia Current Visit: Yes Status: Acute Plan: Respiratory failure unable to wean patient on the ventilator requiring significant amount of oxygen plan to titrate sat to 8890% check arterial blood gases fully anticoagulated for the possibility of thromboembolic disease 2D echocardiogram is pending with a bubble study for right to left shunt chest x- ray reviewed endotracheal tube satisfactory position severe cardiomegaly patient was on oxygen at home has morbid obesity recent diagnosis of coronavirus infection fully anticoagulated with fondaparinux risk for thromboembolism
[2021-06-11] MEDS: FONDAPARINUX SOD 7.5 MG/0.6 ML SQ SCH (12:33)
--- NOTE | 2021-06-11 13:33 | PN ---
Date of Progress Note: 06/11/2021 Subjective: The patient is still on the ventilator. From the surgical standpoint, she is stable. Objective: Abdomen is soft and depressible. Intact surgical sites. Plan: Depends on the medical issues, she comes with the hypoxia and medical issues before the surger y, the appendix was uneventful. From the surgical standpoint, we can start feeding whenever they bel ieve it is appropriate. The ventilator will be managed by the Pulmonary doctor. We encourage DVT pr ophylaxis. We will remove the parris in about 5 more days. HM/MODL Voice ID: [id number] Report ID: [id number]
--- NOTE | 2021-06-11 13:35 | RAD REPORT ---
EXAM DESCRIPTION: USExtrem Venous W Compress Bil06/11/2021 1:26 pm CLINICAL HISTORY: Leg swelling COMPARISON: 2020 FINDINGS: The common femoral, superficial femoral, popliteal and posterior tibial veins bilaterally are compressible and demonstrate augmentation. Doppler demonstrates good flow. IMPRESSION: No evidence of deep venous thrombosis involving either lower extremity.
[2021-06-11] MEDS: MIDAZOLAM HCL 2 MG/2 ML INJ IV PRN (13:51)
[2021-06-11] MEDS: IPRATROPIUM BROM 0.5MG/2.5ML NEB SCH ×2 (14:00→20:10)
[2021-06-11] MEDS: ARFORMOTEROL TARTRATE 15 MCG/2 ML VIAL.NEB NEB SCH ×2 (14:00→20:10)
[2021-06-11] MEDS: HYDROMORPHONE HCL 0.5 MG/0.5 ML INJ IV PRN ×2 (14:03→20:45)
[2021-06-11 16:55] LABS: Arterial Blood Carboxyhemoglob 0.8 % (0-1.5); Blood Gas Oxyhemoglobin 84.3 % (94-97); Blood O2 Saturation 86.6 % (92-98.5)
[2021-06-11] MEDS: ALBUTEROL 2.5 MG/3 ML NEB SOL NEB PRN (20:10)
[2021-06-11] MEDS: dexAMETHasone 4 MG/ML VIAL IV SCH (22:28)
[2021-06-12] MEDS: propofoL 1,000 MG/100 ML VIAL IV PRN ×8 (01:20→22:25)
[2021-06-12] MEDS: HYDROMORPHONE HCL 0.5 MG/0.5 ML INJ IV PRN ×2 (01:20→07:49)
[2021-06-12] MEDS: MIDAZOLAM HCL 2 MG/2 ML INJ IV PRN ×5 (01:50→23:52)
[2021-06-12] MEDS: HALOPERIDOL LACT 5 MG/ML INJ IV PRN ×2 (01:50→07:35)
[2021-06-12] MEDS: METRONIDAZOLE 500mg IVPB 500 MG/100 ML BAG IV SCH ×3 (01:52→18:29)
[2021-06-12] MEDS: IPRATROPIUM BROM 0.5MG/2.5ML NEB SCH ×4 (02:28→19:26)
[2021-06-12] MEDS: MORPHINE 4 MG/ML SYR IV PRN ×3 (03:39→23:52)
[2021-06-12] MEDS: LEVOTHYROXINE SOD 0.075 MG TAB PO SCH (03:43)
[2021-06-12 06:04] LABS: Absolute Lymphocytes (CBC) 0.9 K/uL (0.7-4.9); Hematocrit 26.4 % (36.0-45.0); Lymphocytes % 10.1 % (15.3-44.8); MPV 8.9 fL (7.6-11.3)
--- NOTE | 2021-06-12 06:11 | P.PN ---
Date of Service: 06/12/21 Subjective: Down to 80% FiO2. Borderline low blood pressure overnight, secondary to needing more frequent dose s of sedatives Patient waking up more Remains hypoxic ROS: Unable to be obtained/sedated Physical Exam General: Obese, sedated HEENT: ETT in place Respiratory: Clear to auscultation bilaterally, slightly diminished at bases bilaterally Cardiovascular: No edema, Regular rate/rhythm, Normal S1 S2 Gastrointestinal: Soft, Non-distended Musculoskeletal: No swelling / erythema Integumentary: No rashes, No cyanosis Problem List Acute appendicitis s/p lap appy Acute hypoxemic respiratory failure with hypercapnia Asthma exacerbation h/o COVID pneumonia Obesity hypoventilation syndrome Continue bronchodilators and steroids. s/p lap appendectomy and hernia repair Continue IV Flagyl and Cipro Wean FiO2 as tolerated Pulmonology consulted slight improvement requiring multiple doses of sedation, this is causing some lower blood pressures Unclear why patient is so hypoxic, possible PE. Bilateral venous ultrasounds negative, on arixtra per pulm will need to start tube feeds in next 1-2 days Code: full Dispo: Continue ICU level of care
[2021-06-12 06:22] LABS: Potassium 3.7 mmol/L (3.5-5.1)
[2021-06-12 06:34] LABS: Arterial Blood Carboxyhemoglob 0.8 % (0-1.5); Blood O2 Saturation 94.3 % (92-98.5)
[2021-06-12 06:42] LABS: Albumin 3.3 g/dL (3.4-5.0); Bilirubin Total 0.3 mg/dL (0.2-1.0); Magnesium 2.9 mg/dL (1.8-2.4); Protein, Total 6.6 g/dL (6.4-8.2)
--- NOTE | 2021-06-12 07:42 | RAD REPORT ---
EXAM DESCRIPTION: RAD - Chest Single View - 06/12/2021 7:21 am CLINICAL HISTORY: hypoxia, intubated COMPARISON: Chest Single View dated 06/10/2021; Chest Single View dated 06/09/2021; Chest Single View dated 06/07/2021; Chest Single View dated 04/14/2021; Abdomen Pelvis W Contrast dated 06/09/2021 FINDINGS: Lines: The endotracheal tube has retracted to about the level of C7-T1. Right IJ approach PICC in similar position. Enteric tube below the diaphragm. Lungs: Low lung volumes with likely atelectasis. Pleural: Difficult to exclude a left effusion. Cardiac: Cardiomegaly. Bones: No acute fractures. Other: IMPRESSION: The endotracheal tube has retracted to approximately 4 cm above the aortic arch should b e advanced. Other support apparatus is unchanged. Low lung volumes and likely atelectasis.
[2021-06-12] MEDS ORDERED: KCL 20 MEQ/100 mL IVPB 20 MEQ/100 ML BAG IV SCH (08:00)
[2021-06-12] MEDS ORDERED: POTASSIUM CL 20 MEQ in NA CHLORIDE 0.9% 100 ML IV ONE (08:00)
--- NOTE | 2021-06-12 08:14 | ECHO ---
HEIGHT: 5 ft 6 in WEIGHT: 373 lb 0 oz DATE OF STUDY: 06/11/[address]: Lloyd Lugo MD 2-DIMENSIONAL: YES M.MODE: YES DOPPLER: YES COLOR FLOW: YES TDS: YES PORTABLE: YES DEFINITY: NO BUBBLE STUDY: NO DIAGNOSIS: SEVERE HYPOXEMIA CARDIAC HISTORY: CATHERIZATION: NO SURGERY: NO PROSTHETIC VALVE: NO PACEMAKER: NO MEASUREMENTS (cm) DIASTOLIC (NORMALS) SYSTOLIC (NORMALS) IVSd 1.1 (0.6-1.2) LA Diam (1.9-4.0) LVEF 68% LVIDd 4.8 (3.5-5.7) LVIDs 3.0 (2.0-3.5) %FS 38% LVPWd 1.1 (0.6-1.2) Ao Diam 3.1 (2.0-3.7) 2 DIMENSIONAL ASSESSMENT: RIGHT ATRIUM: NORMAL LEFT ATRIUM: NORMAL RIGHT VENTRICLE: NORMAL LEFT VENTRICLE: NORMAL TRICUSPID VALVE: NORMAL MITRAL VALVE: NORMAL PULMONIC VALVE: NORMAL AORTIC VALVE: NORMAL PERICARDIAL EFFUSION: NONE AORTIC ROOT: NORMAL LEFT VENTRICULAR WALL MOTION: NORMAL. DOPPLER/COLOR FLOW: NORMAL. COMMENTS: UNABLE TO DO SALINE CONTRAST STUDY DUE TO VENT INTERFERENCE. NORMAL LEFT VENTRICULAR SIZE AND FUNCTION. NO WALL MOTION ABNORMALITY. NO EFFUSION. TECHNOLOGIST: HUGO SEGOVIA/ TYRONE MARSHALL
[2021-06-12] MEDS: Ciprofloxacin 200mg IV 200 MG/100 ML IV.SOLN. IV SCH ×2 (08:52→21:29)
[2021-06-12] MEDS: FAMOTIDINE 20 MG/2 ML VIAL IV SCH ×2 (08:53→21:28)
[2021-06-12] MEDS: FONDAPARINUX SOD 7.5 MG/0.6 ML SQ SCH (08:53)
[2021-06-12] MEDS: dexAMETHasone 4 MG/ML VIAL IV SCH ×2 (08:56→21:29)
[2021-06-12] MEDS: FERROUS SULFATE 325 MG TAB PO SCH (09:00)
[2021-06-12] MEDS: VITAMIN D 1000 UNIT TAB PO SCH (09:00)
[2021-06-12] MEDS ORDERED: MIDAZOLAM HCL 100 MG in NA CHLORIDE 0.9% 80 ML IV SCH (09:30)
[2021-06-12] MEDS: ARFORMOTEROL TARTRATE 15 MCG/2 ML VIAL.NEB NEB SCH ×2 (10:50→19:26)
[2021-06-12] MEDS: HYDROMORPHONE HCL 2 MG/ML inj IV PRN ×2 (11:38→18:12)
--- NOTE | 2021-06-12 11:55 | P.PN ---
Subjective Date of Service: 06/12/21 Chief Complaint: Respiratory failure Patient is agitated still requiring around 80% FiO2 blood gases reviewed yesterday echocardiogram left ventricle function is normal unable to do a bubble study no evidence of DVT Review of Systems is unable to be obtained Physical Examination - Vital Signs Temperature: 96.4 F Blood Pressure: 93/56 Pulse: 59 Respirations: 10 Pulse Ox (%): 93 - Physical Exam General: Unresponsive Respiratory: Clear to auscultation bilaterally, Diminished Cardiovascular: Edema Assessment & Plan - Problems (Diagnosis) (1) Acute respiratory failure with hypoxia and hypercapnia Current Visit: Yes Status: Acute Plan: Respiratory failure so far no evidence of DVT chest x-ray shows diminished lung volume history of COVID is quite possible that she has some pulmonary fibrosis from underlying COVID patient is currently on steroids bronchodilators patient is status post appendectomy blood pressure is slightly low continue with anticoagulation start tube feeds review antibiotics with general surgery continue to titrate O2 down probably we can wean her off the ventilator dietitian consult for tube feeds
--- NOTE | 2021-06-12 12:26 | PN ---
Date of Progress Note: 06/12/2021 Diagnosis: Respiratory failure. Subjective: The patient is doing well from the GI standpoint and General Surgery standpoint. The pa gagan has to undergo an emergent appendectomy. The patient preoperatively showed some respiratory di scomfort and got exacerbated. The patient left intubated from surgery and now the medical doctors wo rking on the extubation if possible. She has some underlying conditions and comorbidities that may j ust delay that process. Objective: Abdomen: Benign. Extremity: No calf tenderness. Laboratory Data: Blood work reviewed. Plan: From a surgical standpoint, we can start feeding. I discussed that with primary doctor and thea westfall use a feeding tube and then consult dietitian, and respiratory and ventilator management per medica l doctors. HM/MODL Voice ID: [id number] Report ID: [id number]
[2021-06-13] MEDS: propofoL 1,000 MG/100 ML VIAL IV PRN ×6 (00:14→10:21)
[2021-06-13] MEDS: LEVOTHYROXINE SOD 0.075 MG TAB PO SCH (00:17)
[2021-06-13] MEDS: METRONIDAZOLE 500mg IVPB 500 MG/100 ML BAG IV SCH ×2 (00:22→08:27)
[2021-06-13] MEDS: MIDAZOLAM HCL 2 MG/2 ML INJ IV PRN ×3 (01:50→08:28)
[2021-06-13] MEDS: HYDROMORPHONE HCL 2 MG/ML inj IV PRN ×3 (01:50→09:53)
[2021-06-13] MEDS: IPRATROPIUM BROM 0.5MG/2.5ML NEB SCH ×4 (02:26→20:00)
[2021-06-13 05:32] LABS: Hematocrit 29.4 % (36.0-45.0); Lymphocytes % 7.6 % (15.3-44.8); MPV 9.4 fL (7.6-11.3); RBC Red Blood Cell Count 3.16 M/uL (3.86-4.86)
--- NOTE | 2021-06-13 05:50 | P.PN ---
Date of Service: 06/13/21 Subjective: no acute events overnight. O2 weaning slowly. patient requiring multiple doses of sedatives ROS: Unable to be obtained/sedated Physical Exam General: Obese, sedated HEENT: ETT in place Respiratory: Clear to auscultation bilaterally, slightly diminished at bases bilaterally Cardiovascular: No edema, Regular rate/rhythm, Normal S1 S2 Gastrointestinal: Soft, Non-distended. surgical dressing c/d/i Musculoskeletal: No swelling / erythema Integumentary: No rashes, No cyanosis Problem List Acute appendicitis s/p lap appy Acute hypoxemic respiratory failure with hypercapnia Asthma exacerbation h/o COVID pneumonia Obesity hypoventilation syndrome Continue bronchodilators and steroids. s/p lap appendectomy and hernia repair Continue IV Flagyl and Cipro Wean FiO2 as tolerated Pulmonology consulted slight improvement requiring multiple doses of sedation, this is causing some lower blood pressures Unclear why patient is so hypoxic, possible PE. Bilateral venous ultrasounds negative, on arixtra per pulm echo ordered oracle application consultant consulted for tube feed recommendations, ok to start from general surgery Code: full Dispo: Continue ICU level of care, hospitalization > 3 days
[2021-06-13 05:51] LABS: Albumin 3.4 g/dL (3.4-5.0); Bilirubin Total 0.4 mg/dL (0.2-1.0); Magnesium 2.9 mg/dL (1.8-2.4)
[2021-06-13 07:40] LABS: Blood Morphology Comment NOT SEEN (NOT SEEN); Platelet Estimate ADEQ
[2021-06-13] MEDS: ARFORMOTEROL TARTRATE 15 MCG/2 ML VIAL.NEB NEB SCH ×2 (07:55→20:00)
[2021-06-13] MEDS: FONDAPARINUX SOD 7.5 MG/0.6 ML SQ SCH (08:27)
[2021-06-13] MEDS: Ciprofloxacin 200mg IV 200 MG/100 ML IV.SOLN. IV SCH (08:27)
[2021-06-13] MEDS: MORPHINE 4 MG/ML SYR IV PRN (08:28)
[2021-06-13] MEDS: VITAMIN D 1000 UNIT TAB PO SCH (08:28)
[2021-06-13] MEDS: dexAMETHasone 4 MG/ML VIAL IV SCH ×2 (08:28→21:00)
[2021-06-13] MEDS: FAMOTIDINE 20 MG/2 ML VIAL IV SCH (08:28)
[2021-06-13] MEDS: FERROUS SULFATE 325 MG TAB PO SCH (08:28)
--- NOTE | 2021-06-13 08:32 | P.PN ---
Subjective Date of Service: 06/13/21 Chief Complaint: Respiratory failure No change patient continues to remain hypoxic unable to wean from the ventilator also remains agitated Review of Systems is unable to be obtained Physical Examination - Vital Signs Temperature: 98.7 F Blood Pressure: 141/87 Pulse: 76 Respirations: 11 Pulse Ox (%): 100 - Physical Exam General: Unresponsive Neck: Supple Assessment & Plan - Problems (Diagnosis) (1) Acute respiratory failure with hypoxia and hypercapnia Current Visit: Yes Status: Acute Plan: Respiratory failure unable to wean patient from the ventilator normal echocardiogram unable to do a bubble study White count is mildly elevated labs reviewed vital signs stable continue to wean down on the oxygen chest x-rays ordered general surgery to review
[2021-06-13] MEDS: DEXMEDETOMIDINE HCL 200 MCG in NA CHLORIDE 0.9% 98 ML IV SCH ×2 (09:22→16:18)
--- NOTE | 2021-06-13 09:40 | RAD REPORT ---
EXAM DESCRIPTION: RAD - Chest Single View - 06/13/2021 9:18 am CLINICAL HISTORY: Respiratory failure COMPARISON: Chest Single View dated 06/12/2021; Chest Single View dated 06/10/2021; Chest Single View dated 06/09/2021; Chest Single View dated 06/07/2021 FINDINGS: Lines: The endotracheal tube terminates at the aortic arch. Enteric tube below the diaphra gm. Right subclavian approach PICC. Lungs: Low lung volumes with basilar opacities that may represent atelectasis. Pleural: Difficult to exclude a small left effusion. Cardiac: Cardiomegaly. Bones: No acute fractures. Other: IMPRESSION: Low lung volumes with basilar airspace disease that may reflect atelectasis and/or conso lidation. This is similar. The endotracheal tube has been advanced and is in satisfactory position at the aortic arch.
[2021-06-13] MEDS ORDERED: LORazepam 2 MG/ML VIAL IV PRN (10:00)
[2021-06-13] MEDS ORDERED: HYDROMORPHONE HCL 2 MG/ML inj IV PRN (10:00)
[2021-06-13] MEDS: ALBUTEROL 2.5 MG/3 ML NEB SOL NEB PRN (15:35)
[2021-06-13] MEDS ORDERED: VITAL HP 1,000 ML BOT RTH SCH (16:00)
[2021-06-13] MEDS ORDERED: DEXMEDETOMIDINE HCL 400 MCG in NA CHLORIDE 0.9% 196 ML IV SCH (17:00)
[2021-06-13] MEDS ORDERED: LORazepam 2 MG/ML VIAL IV ONE (19:31)
[2021-06-13] MEDS: DEXMEDETOMIDINE HCL 1,000 MCG in NA CHLORIDE 0.9% 490 ML IV SCH (21:00)
[2021-06-14] MEDS: IPRATROPIUM BROM 0.5MG/2.5ML NEB SCH ×5 (01:51→20:00)
--- NOTE | 2021-06-14 05:43 | P.PN ---
Date of Service: 06/14/21 Subjective: extubated yesterday, menstrual period began yesteray difficult to stay on BIPAP overnight, restless, pulling mask this morning, code juan f called, pt became hypoxic, hypotensive, and lost pulse CPR initiated, received epi, and ROSC was obtained. Remained significantly hypoxic, intubated placed on levophed ROS: Unable to be obtained/sedated Physical Exam General: Obese, sedated HEENT: ETT in place Respiratory: diminished throughout, on mech vent Cardiovascular: No edema, Regular rate/rhythm, Normal S1 S2 Gastrointestinal: Soft, Non-distended Musculoskeletal: No swelling / erythema Integumentary: No rashes, No cyanosis : on menses Problem List Acute appendicitis s/p lap appy Acute hypoxemic respiratory failure with hypercapnia Asthma exacerbation h/o COVID pneumonia Obesity hypoventilation syndrome acute on chronic anemia, with blood loss (menstrual period) re-intubated on 06/14 AM, placed on levophed restart steroids s/p lap appendectomy and hernia repair Continue IV Flagyl and Cipro Pulmonology consulted requiring multiple doses of sedation, this was causing some lower blood pressures Unclear why patient is so hypoxic, possible PE. Bilateral venous ultrasounds negative, on arixtra per pulm echo: normal EF night patrol inspector consulted for tube feed recommendations, ok to start from general surgery anemia - multifactorial - acute on chronic, with some blood loss - started menstrual period yesterday, monitor closely. maintain Hgb > 8 labs and ABG sent Code: full Dispo: remains critical, Continue ICU level of care, hospitalization > 3 days boyfriend updated Time spent managing patient's care: 60 minutes, 35minutes critical care
[2021-06-14] MEDS: DEXMEDETOMIDINE HCL 1,000 MCG in NA CHLORIDE 0.9% 490 ML IV SCH (05:48)
[2021-06-14] MEDS: LEVOTHYROXINE SOD 0.075 MG TAB PO SCH (06:30)
[2021-06-14] MEDS ORDERED: RSI MEDICATION KIT IV ONE (06:47)
[2021-06-14 06:49] LABS: Hematocrit 27.3 % (36.0-45.0); MPV 7.4 fL (7.6-11.3); RBC Red Blood Cell Count 3.36 M/uL (3.86-4.86)
[2021-06-14] MEDS ORDERED: ETOMIDATE 20 MG/10 ML VIAL IV ONE ×2 (06:49→11:13)
[2021-06-14] MEDS: NOREPINEPHRINE 4 MG in D5W 250 ML IV SCH (07:10)
[2021-06-14] MEDS: propofoL 1,000 MG/100 ML VIAL IV PRN ×8 (07:30→21:51)
[2021-06-14 07:42] LABS: Arterial Blood Carboxyhemoglob 0.6 % (0-1.5); Blood Gas Oxyhemoglobin 83.4 % (94-97); Blood O2 Saturation 85.5 % (92-98.5)
[2021-06-14] MEDS: ARFORMOTEROL TARTRATE 15 MCG/2 ML VIAL.NEB NEB SCH ×3 (08:00→20:00)
[2021-06-14] MEDS: LORazepam 2 MG/ML VIAL IV PRN ×2 (08:22→13:47)
--- NOTE | 2021-06-14 08:44 | RAD REPORT ---
EXAM DESCRIPTION: Rosario Single View06/14/2021 8:09 am CLINICAL HISTORY: Shortness breath COMPARISON: June 13, 2021 FINDINGS: Endotracheal tube with its tip overlying the aortic arch. Orogastric tube within the stomach Mild bilateral lung opacities. Right basilar atelectasis has resolved. Heart remains enlarged
[2021-06-14] MEDS ORDERED: METHYLPREDNISOLONE 40 MG INJ IV SCH (09:00)
[2021-06-14] MEDS: FONDAPARINUX SOD 7.5 MG/0.6 ML SQ SCH (10:06)
[2021-06-14] MEDS: dexAMETHasone 4 MG/ML VIAL IV SCH ×2 (10:06→20:19)
[2021-06-14] MEDS: FAMOTIDINE 20 MG/2 ML VIAL IV SCH ×2 (10:06→20:19)
[2021-06-14] MEDS: FERROUS SULFATE 325 MG TAB PO SCH (10:06)
[2021-06-14] MEDS: VITAMIN D 1000 UNIT TAB PO SCH (10:07)
[2021-06-14 10:33] LABS: Blood O2 Saturation 98.1 % (92-98.5)
[2021-06-14 10:34] LABS: Blood Gas Oxyhemoglobin 95.4 % (94-97)
[2021-06-14] MEDS ORDERED: SUCCINYLCHOLINE 20 MG/ML (10 ML) IV ONE (11:13)
[2021-06-14] MEDS ORDERED: D50W 50 ML IV ONE (12:11)
[2021-06-14] MEDS ORDERED: D50W 25 GM/50 ML SYRINGE IV ONE (12:11)
[2021-06-14] MEDS: MIDAZOLAM HCL 2 MG/2 ML INJ IV PRN (13:12)
[2021-06-14 15:03] LABS: Potassium 3.5 mmol/L (3.5-5.1)
[2021-06-14 15:06] LABS: Bilirubin Total 0.4 mg/dL (0.2-1.0)
[2021-06-14 15:07] LABS: Protein, Total 6.7 g/dL (6.4-8.2)
[2021-06-14 15:08] LABS: Albumin 3.2 g/dL (3.4-5.0)
[2021-06-14 15:18] LABS: Magnesium 2.9 mg/dL (1.8-2.4)
[2021-06-14] MEDS: HYDROMORPHONE HCL 2 MG/ML inj IV PRN ×2 (15:41→21:51)
[2021-06-14] MEDS ORDERED: dexAMETHasone 4 MG/ML VIAL IV SCH (17:00)
[2021-06-14] MEDS: ALBUTEROL 2.5 MG/3 ML NEB SOL NEB PRN (17:15)
--- NOTE | 2021-06-14 17:29 | RAD REPORT ---
EXAM DESCRIPTION: RAD - Chest Single View - 06/14/2021 5:21 pm CLINICAL HISTORY: hypoxic, f/u respiratory ar rest COMPARISON: Chest Single View dated 06/14/2021; Chest Single View dated 06/13/2021; Chest Single View dated 06/12/2021; Chest Single View dated 06/10/2021 FINDINGS: Lines: Endotracheal tube at the aortic arch. NG tube below the diaphragm. Lungs: Diffuse prominence of the pulmonary interstitium. Pleural: Cannot exclude small effusions. Cardiac: Cardiomegaly. Bones: No acute fractures. Other: IMPRESSION: Worsened aeration of the lungs likely due to pulmonary edema. Support apparatus stable.
[2021-06-14 18:15] LABS: Hematocrit 28.1 % (36.0-45.0); MPV 8.9 fL (7.6-11.3); RBC Red Blood Cell Count 3.03 M/uL (3.86-4.86)
[2021-06-14] MEDS: D50W 25 GM/50 ML SYRINGE IV PRN (23:53)
[2021-06-15] MEDS: propofoL 1,000 MG/100 ML VIAL IV PRN ×9 (00:05→17:55)
[2021-06-15] MEDS: IPRATROPIUM BROM 0.5MG/2.5ML NEB SCH ×4 (01:10→20:05)
[2021-06-15] MEDS: HYDROMORPHONE HCL 2 MG/ML inj IV PRN ×5 (04:00→19:32)
[2021-06-15] MEDS: MIDAZOLAM HCL 2 MG/2 ML INJ IV PRN (05:00)
[2021-06-15 05:45] LABS: Absolute Lymphocytes (CBC) 1.5 K/uL (0.7-4.9); Hematocrit 31.1 % (36.0-45.0); Lymphocytes % 8.6 % (15.3-44.8); MPV 9.3 fL (7.6-11.3); RBC Red Blood Cell Count 3.34 M/uL (3.86-4.86)
--- NOTE | 2021-06-15 05:47 | P.PN ---
Date of Service: 06/15/21 Subjective: no acute events overnight remains on vent, requiring lots of sedation, leads to low BP at times ROS: Unable to be obtained/sedated Physical Exam General: Obese, sedated HEENT: ETT in place Respiratory: diminished throughout, on mech vent Cardiovascular: No edema, Regular rate/rhythm, Normal S1 S2 Gastrointestinal: Soft, Non-distended Integumentary: No rashes, No cyanosis : on menses Problem List Acute appendicitis s/p lap appy Acute hypoxemic respiratory failure with hypercapnia Asthma exacerbation h/o COVID pneumonia Obesity hypoventilation syndrome acute on chronic anemia, with blood loss (menstrual period) Head Lice s/p lap appendectomy and hernia repair re-intubated on 06/14 AM, placed on levophed initially continue steroids Pulmonology consulted requiring multiple doses of sedation Unclear why patient is so hypoxic, possible PE. Bilateral venous ultrasounds negative, on arixtra per pulm. likely secondary to obesity hypoventilation syndrome echo: normal EF continue tube feeds anemia - multifactorial - acute on chronic, with some blood loss - started menstrual period. mother reports patient has h/o heavy menses, required blood transfusion x2 in past due to them maintain Hgb > 8 may need trach / ENT consult Code: full Dispo: remains critical, Continue ICU level of care, hospitalization > 3 days mother updated Time spent managing patient's care: 35 minutes
[2021-06-15 06:00] LABS: Albumin 3.4 g/dL (3.4-5.0); Bilirubin Total 0.4 mg/dL (0.2-1.0); C-Reactive Protein 71.4 mg/L (<3.00); Potassium 3.5 mmol/L (3.5-5.1); Protein, Total 7.2 g/dL (6.4-8.2)
[2021-06-15] MEDS: LEVOTHYROXINE SOD 0.075 MG TAB PO SCH (06:06)
--- NOTE | 2021-06-15 07:56 | RAD REPORT ---
EXAM DESCRIPTION: Rosario Single View06/15/2021 6:08 am CLINICAL HISTORY: Shortness of breath COMPARISON: June 14, 2021 FINDINGS: Endotracheal tube with its tip at the level of the top of the aortic arch. Orogastric tube within the stomach No significant change in mild bilateral pulmonary opacities and cardiomegaly. PICC line in place
[2021-06-15] MEDS: ALBUTEROL 2.5 MG/3 ML NEB SOL NEB PRN (08:45)
[2021-06-15] MEDS: ARFORMOTEROL TARTRATE 15 MCG/2 ML VIAL.NEB NEB SCH ×2 (08:45→20:05)
[2021-06-15] MEDS: FONDAPARINUX SOD 7.5 MG/0.6 ML SQ SCH (09:22)
[2021-06-15] MEDS: dexAMETHasone 4 MG/ML VIAL IV SCH ×2 (09:23→19:50)
[2021-06-15] MEDS: FERROUS SULFATE 325 MG TAB PO SCH (09:24)
[2021-06-15] MEDS: FAMOTIDINE 20 MG/2 ML VIAL IV SCH ×2 (09:24→19:50)
[2021-06-15] MEDS: VITAMIN D 1000 UNIT TAB PO SCH (09:26)
[2021-06-15] MEDS ORDERED: ZIPRASIDONE MESYLA 20 MG/VIAL IM PRN (10:58)
[2021-06-15] MEDS ORDERED: WATER FOR INJ,STERILE 10 ML IM PRN (10:58)
--- NOTE | 2021-06-15 11:00 | P.PN ---
Subjective Date of Service: 06/15/21 Chief Complaint: Respiratory failure Patient was reintubated yesterday due to respiratory distress continues to remain very agitated Review of Systems is unable to be obtained Physical Examination - Vital Signs Temperature: 98.7 F Blood Pressure: 95/54 Pulse: 65 Respirations: 16 Pulse Ox (%): 93 - Physical Exam General: Unresponsive Neck: No Thyromegaly Respiratory: Diminished Cardiovascular: No edema Assessment & Plan - Problems (Diagnosis) (1) Acute respiratory failure with hypoxia and hypercapnia Current Visit: Yes Status: Acute Plan: Respiratory failure patient has been reintubated again oxygenation satisfactory chest x-ray appears to be clear repeat out arterial blood gases 1 sat is 90% blood pressure is slightly low I have started patient on Geodon we will start tube feeds
[2021-06-15] MEDS: levoFLOXacin 750 MG TAB FT SCH (12:56)
[2021-06-15] MEDS: LORazepam 2 MG/ML VIAL IV PRN ×3 (13:11→22:36)
[2021-06-15] MEDS ORDERED: NA CHLORIDE 0.9% 500 ML IV ONE (14:03)
[2021-06-16] MEDS: MIDAZOLAM HCL 2 MG/2 ML INJ IV PRN ×3 (00:10→20:00)
[2021-06-16] MEDS: propofoL 1,000 MG/100 ML VIAL IV PRN ×8 (00:11→21:56)
[2021-06-16] MEDS: HYDROMORPHONE HCL 2 MG/ML inj IV PRN ×5 (00:37→20:56)
[2021-06-16] MEDS: IPRATROPIUM BROM 0.5MG/2.5ML NEB SCH ×4 (02:20→19:40)
[2021-06-16] MEDS: LORazepam 2 MG/ML VIAL IV PRN ×4 (03:38→23:01)
[2021-06-16] MEDS: LEVOTHYROXINE SOD 0.075 MG TAB PO SCH (05:36)
--- NOTE | 2021-06-16 05:49 | P.PN ---
Date of Service: 06/16/21 Subjective: Patient has had 2-3 episodes of suddenly becoming hypoxic and requiring FiO2 to be increased to 100% She then improves and is able to be weaned down, only for this to occur again Chest x-ray with slight worsening of bilateral opacities Remains afebrile, started Levaquin yesterday hypotensive from sedatives UOP slight decreased ROS: Unable to be obtained/sedated Physical Exam General: Obese, sedated HEENT: ETT in place Respiratory: diminished throughout, b/l crackles, on mech vent Cardiovascular: No edema, Regular rate/rhythm, Normal S1 S2 Gastrointestinal: mild distention Integumentary: No rashes, No cyanosis : on menses Problem List Acute appendicitis s/p lap appy Acute hypoxemic respiratory failure with hypercapnia Asthma exacerbation h/o COVID pneumonia Obesity hypoventilation syndrome acute on chronic anemia, with blood loss (menstrual period) Head Lice s/p lap appendectomy and hernia repair re-intubated on 06/14 AM, placed on levophed initially continue steroids Pulmonology consulted requiring multiple doses of sedation Unclear why patient is so hypoxic, possible PE. Bilateral venous ultrasounds negative, on arixtra per pulm. likely secondary to obesity hypoventilation syndrome echo: normal EF continue tube feeds anemia - multifactorial - acute on chronic, with some blood loss - started menstrual period. mother reports patient has h/o heavy menses, required blood transfusion x2 in past due to them maintain Hgb > 8 may need trach / ENT consult No recorded BM since surgery, obtain KUB, start stool softener, may need enema versus laxative Code: full Dispo: remains critical, Continue ICU level of care, hospitalization > 3 days mother updated Time spent managing patient's care: 35 minutes
[2021-06-16 06:30] LABS: Hematocrit 27.9 % (36.0-45.0); MPV 9.3 fL (7.6-11.3); RBC Red Blood Cell Count 2.98 M/uL (3.86-4.86)
[2021-06-16 06:32] LABS: Magnesium 3.1 mg/dL (1.8-2.4); Potassium 3.3 mmol/L (3.5-5.1)
--- NOTE | 2021-06-16 07:48 | RAD REPORT ---
EXAM DESCRIPTION: RAD - Chest Single View - 06/16/2021 6:34 am CLINICAL HISTORY: Respiratory failure COMPARISON: Chest Single View dated 06/15/2021; Chest Single View dated 06/14/2021; Chest Single View dated 06/14/2021; Chest Single View dated 06/13/2021 FINDINGS: Lines: Endotracheal tube 10 millimeters above the aortic arch. Enteric tube below the diap hragm. Right subclavian approach PICC. Lungs: Moderate to severe bilateral airspace disease which has worsened since 06/15/2021 Pleural: No significant pleural effusions or pneumothorax. Cardiac: Similar enlargement of the cardiac silhouette. Bones: No acute fractures. Other: IMPRESSION: Moderate to severe bilateral airspace disease which has worsened since 06/15/2021. [address] advancing the endotracheal tube by 1 cm.
[2021-06-16] MEDS: ARFORMOTEROL TARTRATE 15 MCG/2 ML VIAL.NEB NEB SCH ×2 (07:50→19:40)
[2021-06-16] MEDS ORDERED: POTASSIUM 25 MEQ EFFERV TAB PO ONE (08:00)
[2021-06-16] MEDS: FONDAPARINUX SOD 7.5 MG/0.6 ML SQ SCH (08:32)
[2021-06-16] MEDS: FERROUS SULFATE 325 MG TAB PO SCH (08:32)
[2021-06-16] MEDS: VITAMIN D 1000 UNIT TAB PO SCH (08:32)
[2021-06-16] MEDS: levoFLOXacin 750 MG TAB FT SCH (08:32)
[2021-06-16] MEDS: dexAMETHasone 4 MG/ML VIAL IV SCH ×2 (08:33→20:56)
[2021-06-16] MEDS: FAMOTIDINE 20 MG/2 ML VIAL IV SCH ×2 (08:33→20:57)
--- NOTE | 2021-06-16 10:10 | RAD REPORT ---
EXAM DESCRIPTION: RAD - Abdomen 1 View (KUB) - 06/16/2021 8:39 am CLINICAL HISTORY: Evaluate for stool burden COMPARISON: Abdomen Pelvis W Contrast dated 06/09/2021 FINDINGS: Nonobstructive bowel gas pattern. No acute osseous abnormality.No abnormal calcifications. Moderate stool in the ascending and proximal transverse colon. Enteric tube overlying the stomach. IMPRESSION: Nonobstructive bowel gas pattern. Moderate stool.
[2021-06-16] MEDS: ALBUTEROL 2.5 MG/3 ML NEB SOL NEB PRN ×2 (11:55→13:05)
[2021-06-16] MEDS: MINERAL OIL 30 ML UCUP FT SCH (13:26)
[2021-06-16] MEDS: DOCUSATE NA 100 MG CAP PO SCH (20:57)
[2021-06-17] MEDS: HYDROMORPHONE HCL 2 MG/ML inj IV PRN ×5 (01:05→20:50)
[2021-06-17] MEDS: propofoL 1,000 MG/100 ML VIAL IV PRN ×7 (01:06→22:59)
[2021-06-17] MEDS: IPRATROPIUM BROM 0.5MG/2.5ML NEB SCH ×4 (01:40→19:40)
[2021-06-17] MEDS: LORazepam 2 MG/ML VIAL IV PRN ×4 (03:30→23:10)
[2021-06-17 04:49] LABS: Hematocrit 22.4 % (36.0-45.0); Lymphocytes % 8.7 % (15.3-44.8); MPV 8.9 fL (7.6-11.3)
[2021-06-17 05:25] LABS: Ferritin 38.3 ng/mL (8-388); Potassium 3.5 mmol/L (3.5-5.1)
[2021-06-17 05:44] LABS: Blood Morphology Comment NOT SEEN (NOT SEEN); Platelet Estimate ADEQ
[2021-06-17] MEDS ORDERED: FUROSEMIDE 20 MG/ 2ML VIAL IV ONE (05:58)
--- NOTE | 2021-06-17 06:00 | P.PN ---
Date of Service: 06/17/21 Subjective: no acute events overnight hgb decreased nursing reports menses is less ROS: Unable to be obtained/sedated Physical Exam General: Obese, sedated HEENT: ETT in place Respiratory: diminished throughout, b/l crackles, on mech vent Cardiovascular: No edema, Regular rate/rhythm, Normal S1 S2 Gastrointestinal: mild distention Integumentary: No rashes, No cyanosis : on menses Problem List Acute appendicitis s/p lap appy Acute hypoxemic respiratory failure with hypercapnia Asthma exacerbation h/o COVID pneumonia Obesity hypoventilation syndrome acute on chronic anemia, with blood loss (menstrual period) Head Lice s/p lap appendectomy and hernia repair re-intubated on 06/14 AM, placed on levophed initially continue steroids Pulmonology consulted requiring multiple doses of sedation Unclear why patient is so hypoxic, possible PE. Bilateral venous ultrasounds negative, on arixtra per pulm. likely secondary to obesity hypoventilation syndrome echo: normal EF continue tube feeds anemia - multifactorial - acute on chronic, with some blood loss - started menstrual period. mother reports patient has h/o heavy menses, required blood transfusion x2 in past due to them maintain Hgb > 8, transfuse 2u PRBC today, with lasix No recorded BM since surgery, KUB with non-obstructed pattern, continue stool softener, mineral oil added may need trach, possible ENT consult in next day or 2 if no improvement Code: full Dispo: remains critical, Continue ICU level of care, hospitalization > 3 days mother updated at bedside Time spent managing patient's care: 35 minutes
[2021-06-17] MEDS: LEVOTHYROXINE SOD 0.075 MG TAB PO SCH (06:12)
[2021-06-17] MEDS: ARFORMOTEROL TARTRATE 15 MCG/2 ML VIAL.NEB NEB SCH ×2 (07:32→19:40)
[2021-06-17] MEDS ORDERED: POTASSIUM 25 MEQ EFFERV TAB PO ONE (08:01)
--- NOTE | 2021-06-17 08:23 | RAD REPORT ---
EXAM DESCRIPTION: RAD - Chest Single View - 06/17/2021 6:15 am CLINICAL HISTORY: Respiratory failure COMPARISON: Abdomen 1 View (KUB) dated 06/16/2021; Chest Single View dated 06/16/2021; Chest Single Vi ew dated 06/15/2021; Chest Single View dated 06/14/2021 FINDINGS: Lines: PICC endotracheal tube and NG tube in similar positioning Lungs: Low lung volumes with bilateral at interstitial airspace opacities. Aeration of the lungs is s eemingly mildly improved since 06/16/2021. Pleural: Small effusions. Cardiac: Cardiomegaly. Bones: No acute fractures. Other: IMPRESSION: Similar to slightly improved aeration of the lungs compared with 06/16/2021. This is pro bably due to edema though multifocal pneumonia difficult to entirely exclude.
[2021-06-17] MEDS: FONDAPARINUX SOD 7.5 MG/0.6 ML SQ SCH (09:05)
[2021-06-17] MEDS: MINERAL OIL 30 ML UCUP FT SCH (09:05)
[2021-06-17] MEDS: dexAMETHasone 4 MG/ML VIAL IV SCH ×2 (09:05→20:50)
[2021-06-17] MEDS: VITAMIN D 1000 UNIT TAB PO SCH (09:05)
[2021-06-17] MEDS: levoFLOXacin 750 MG TAB FT SCH (09:06)
[2021-06-17] MEDS: FERROUS SULFATE 325 MG TAB PO SCH (09:06)
[2021-06-17] MEDS: DOCUSATE NA 100 MG CAP PO SCH ×2 (09:06→20:50)
[2021-06-17] MEDS: FAMOTIDINE 20 MG/2 ML VIAL IV SCH ×2 (09:06→20:50)
[2021-06-17] MEDS: NA CHLORIDE 0.9% 250 ML IV SCH (11:21)
[2021-06-17] MEDS: ALBUTEROL 2.5 MG/3 ML NEB SOL NEB PRN (14:35)
[2021-06-17 15:10] LABS: C-Reactive Protein 43.74
[2021-06-17 22:43] LABS: Hematocrit 25.1 % (36.0-45.0)
[2021-06-17] MEDS: CISATRACURIUM INJECTION 2 MG/ML (10 ML Vial) IV PRN (22:59)
[2021-06-17] MEDS: MIDAZOLAM HCL 2 MG/2 ML INJ IV PRN (23:10)
[2021-06-18] MEDS: HYDROMORPHONE HCL 2 MG/ML inj IV PRN ×5 (00:42→21:17)
[2021-06-18] MEDS: VITAL HP 1,000 ML BOT RTH SCH ×2 (02:07→22:00)
[2021-06-18] MEDS: propofoL 1,000 MG/100 ML VIAL IV PRN ×8 (02:07→23:58)
[2021-06-18] MEDS: IPRATROPIUM BROM 0.5MG/2.5ML NEB SCH ×4 (02:32→19:16)
[2021-06-18] MEDS: MIDAZOLAM HCL 2 MG/2 ML INJ IV PRN ×5 (03:18→23:29)
[2021-06-18] MEDS: LORazepam 2 MG/ML VIAL IV PRN ×5 (03:19→23:29)
[2021-06-18] MEDS: CISATRACURIUM INJECTION 2 MG/ML (10 ML Vial) IV PRN (05:00)
[2021-06-18 05:45] LABS: Absolute Lymphocytes (CBC) 1.1 K/uL (0.7-4.9); Hematocrit 25.4 % (36.0-45.0); Lymphocytes % 8.9 % (15.3-44.8); MPV 8.8 fL (7.6-11.3); RBC Red Blood Cell Count 2.75 M/uL (3.86-4.86)
[2021-06-18 06:01] LABS: Potassium 3.5 mmol/L (3.5-5.1)
[2021-06-18] MEDS: LEVOTHYROXINE SOD 0.075 MG TAB PO SCH (06:05)
--- NOTE | 2021-06-18 07:19 | RAD REPORT ---
EXAM DESCRIPTION: RAD - Chest Single View - 06/18/2021 6:16 am CLINICAL HISTORY: Respiratory failure COMPARISON: June 17 TECHNIQUE: AP portable chest image was obtained 06/18/2021 6:16 am . FINDINGS: Endotracheal tube tip is in good position 4.5 cm above the greyson. NG tube is poorly visua lized but extends below the diaphragm. Very low lung volumes noted. Under penetrated film technique also present. Heart, vasculature and sonia g markings are all accentuated by low lung volumes body habitus affects and portable technique. Failu re/ volume overload findings do appear slightly worse than the prior study. This may be more technica l than true change and can be evaluated with follow-up imaging as warranted. No measurable pleural effusion and no pneumothorax. No acute bony abnormality seen. No acute aortic f indings suspected. IMPRESSION: Endotracheal tube in good position. NG tube is poorly visualized but does extend below t he diaphragm. Heart, vasculature and lung markings are all more prominent than prior day study. This is probably ex am limitations but patient can be monitored for new or progressive failure/ volume overload.
[2021-06-18] MEDS: ARFORMOTEROL TARTRATE 15 MCG/2 ML VIAL.NEB NEB SCH ×2 (07:50→19:16)
[2021-06-18] MEDS: ALBUTEROL 2.5 MG/3 ML NEB SOL NEB PRN (07:50)
[2021-06-18] MEDS: MINERAL OIL 30 ML UCUP FT SCH (09:48)
[2021-06-18] MEDS: FAMOTIDINE 20 MG/2 ML VIAL IV SCH ×2 (09:48→21:17)
[2021-06-18] MEDS: dexAMETHasone 4 MG/ML VIAL IV SCH ×2 (09:48→21:17)
[2021-06-18] MEDS: FERROUS SULFATE 325 MG TAB PO SCH (09:48)
[2021-06-18] MEDS: levoFLOXacin 750 MG TAB FT SCH (09:49)
[2021-06-18] MEDS: DOCUSATE NA 100 MG CAP PO SCH ×2 (09:49→21:17)
[2021-06-18] MEDS: VITAMIN D 1000 UNIT TAB PO SCH (09:49)
--- NOTE | 2021-06-18 12:17 | PN ---
Date of Progress Note: 06/18/2021 Subjective: Ms. Knox is a 36-year-old patient, morbidly obese, came to the hospital with short o f breath. During the hospital stay, the patient also claimed she has been having some abdominal pain for several weeks and when CAT scan was done, the first CAT scan cannot rule out appendicitis. The second CAT scan was done, serial, cannot rule out appendicitis. Since she has chronic pain, the poss ibility of appendicitis was broad, so a surgical consult was obtained for appendectomy. In the meant ashwin, we understand her baseline. She is on BiPAP machine. She came here short of breath and we expl ained to her most likely when we take her on anesthesia, it is going to be a long recovery. I am not sure we can take her off vent and Anesthesia explained that after the surgery, it was uncomplicated normal routine surgery. The Anesthesia believe it is unsafe to get her extubated, so we planned her to move her to the ICU for extubation and do a slow intubation after the medical doctors trying to di scover why she was so hypoxic before surgery too. She is still on the ventilator. From the GI stand point, she is recovering. She is tolerating diet. The parris have been removed today with bowel so unds positive. Plan: From the surgical standpoint not much to do at this moment other than the medical team trying to see if they can get her extubated, not only that but also find the reason why she was so hypoxia t o start with. It looked apparently she came here with 2 conditions. We are working on 2 of them. A t the same time one of them I am glad to say looked resolved, which is the GI tract. HM/MODL Voice ID: [id number] Report ID: [id number]
--- NOTE | 2021-06-18 12:56 | P.PN ---
Subjective Date of Service: 06/18/21 Chief Complaint: Respiratory failure Patient remain intubated. Nurses report slightest movement causes her oxygen saturation to drop. Physical Examination - Vital Signs Temperature: 98.7 F Blood Pressure: 108/58 Pulse: 66 Respirations: 20 Pulse Ox (%): 88 - Physical Exam General: Obese, Other (Sedated) HEENT: Other (ET tube) Assessment And Plan - Current Problems (Diagnosis) (1) Acute respiratory failure with hypoxia and hypercapnia Current Visit: Yes Status: Acute (2) Abdominal pain Current Visit: Yes Status: Acute Qualifiers: Abdominal location: left upper quadrant Qualified Code(s): R10.12 - Left upper quadrant pain (3) Asthma exacerbation Current Visit: Yes Status: Acute Qualifiers: Asthma severity: moderate Asthma persistence: unspecified Qualified Code(s): J45.901 - Unspecified asthma with (acute) exacerbation (4) Obesity hypoventilation syndrome Current Visit: Yes Status: Acute (5) Acute appendicitis Current Visit: Yes Status: Acute - Plan Physical Exam General: Obese, sedated HEENT: ETT in place Respiratory: diminished throughout, b/l crackles, on mech vent Cardiovascular: No edema, Regular rate/rhythm, Normal S1 S2 Gastrointestinal: Obese. Integumentary: No rashes, No cyanosis Problem List Acute appendicitis s/p lap appy Acute hypoxemic respiratory failure with hypercapnia Asthma exacerbation h/o COVID pneumonia Obesity hypoventilation syndrome acute on chronic anemia, with blood loss (menstrual period) Head Lice s/p lap appendectomy and hernia repair re-intubated on 06/14 AM, placed on levophed initially. Off Levophed drip continue steroids Pulmonology consulted requiring multiple doses of sedation Unclear why patient is so hypoxic, possible PE. Bilateral venous ultrasounds negative, on arixtra per pulm. likely secondary to obesity hypoventilation syndrome pulmonary fibrosis from recent Covid infection. Started on IV dexamethasone by pulmonary. echo: normal EF continue tube feeds anemia - multifactorial - acute on chronic, with some blood loss - started m enstrual period. mother reports patient has h/o heavy menses, required blood transfusion x2 in past due to them maintain Hgb > 8, status post transfuse 2u PRBC. Transfuse as needed for hemoglobin less than 8. Continue stool softener, mineral oil added may need trach but FiO2 is high. May need to wean to at least 60% before trach. Code: full Dispo: remains critical, Continue ICU level of care.
[2021-06-18 14:33] LABS: Magnesium 2.8 mg/dL (1.8-2.4)
[2021-06-18] MEDS ORDERED: LICE TREATMENT 1 APPL/120 ML BTL TOP SCH (18:30)
[2021-06-18] MEDS: ENOXAPARIN 40 MG/0.4 ML SQ SCH (21:16)
[2021-06-19] MEDS: HYDROMORPHONE HCL 2 MG/ML inj IV PRN ×3 (00:55→23:46)
[2021-06-19] MEDS: IPRATROPIUM BROM 0.5MG/2.5ML NEB SCH ×4 (01:29→19:20)
[2021-06-19] MEDS: LORazepam 2 MG/ML VIAL IV PRN ×3 (01:49→12:33)
[2021-06-19] MEDS: MIDAZOLAM HCL 2 MG/2 ML INJ IV PRN ×2 (01:49→06:03)
[2021-06-19] MEDS: propofoL 1,000 MG/100 ML VIAL IV PRN ×7 (03:11→22:48)
[2021-06-19] MEDS: LEVOTHYROXINE SOD 0.075 MG TAB PO SCH (06:03)
[2021-06-19 06:27] LABS: Absolute Lymphocytes (CBC) 0.9 K/uL (0.7-4.9); Hematocrit 27.9 % (36.0-45.0); Lymphocytes % 5.4 % (15.3-44.8); MPV 9.3 fL (7.6-11.3)
--- NOTE | 2021-06-19 06:44 | RAD REPORT ---
EXAM DESCRIPTION: RAD - Chest Single View - 06/19/2021 6:04 am CLINICAL HISTORY: Respiratory failure COMPARISON: June 18 TECHNIQUE: AP portable chest image was obtained 06/19/2021 6:04 am . FINDINGS: Lung volumes remain low. Worsening airspace opacification seen in the mid and upper right lung field. Right base and left lung field airspace opacities have not changed. Endotracheal tube tip is top of the aortic arch 3 cm above the greyson. NG tube extends below the diap hragm, off the field of view. Right subclavian central line remains in good position. Heart size and vasculature are prominent but stable. No pneumothorax or enlarging pleural effusion. IMPRESSION: Worsening edema or infiltrate in the right lung field. Tubes and lines remain in good position.
[2021-06-19 06:54] LABS: Phosphorus 4.5 mg/dL (2.5-4.9)
[2021-06-19 06:57] LABS: Magnesium 2.7 mg/dL (1.8-2.4); Potassium 3.8 mmol/L (3.5-5.1)
[2021-06-19] MEDS: FERROUS SULFATE 325 MG TAB PO SCH (08:02)
[2021-06-19] MEDS: FAMOTIDINE 20 MG/2 ML VIAL IV SCH ×2 (08:02→20:47)
[2021-06-19] MEDS: dexAMETHasone 4 MG/ML VIAL IV SCH ×2 (08:02→20:47)
[2021-06-19] MEDS: DOCUSATE NA 100 MG CAP PO SCH ×2 (08:02→20:47)
[2021-06-19] MEDS: VITAMIN D 1000 UNIT TAB PO SCH (08:03)
[2021-06-19] MEDS: MINERAL OIL 30 ML UCUP FT SCH (08:04)
[2021-06-19] MEDS: ENOXAPARIN 40 MG/0.4 ML SQ SCH ×2 (08:04→20:47)
[2021-06-19] MEDS: ARFORMOTEROL TARTRATE 15 MCG/2 ML VIAL.NEB NEB SCH ×2 (08:04→19:20)
[2021-06-19 11:14] LABS: Blood Morphology Comment NOT SEEN (NOT SEEN); Platelet Estimate ADEQ
--- NOTE | 2021-06-19 12:37 | P.PN ---
Subjective Date of Service: 06/19/21 Chief Complaint: Respiratory failure Patient remain intubated. FiO2 weaned down to 60% today. Patient with lice in her hair. Physical Examination - Vital Signs Temperature: 98.3 F Blood Pressure: 118/78 Pulse: 66 Respirations: 20 Pulse Ox (%): 95 Assessment And Plan - Current Problems (Diagnosis) (1) Acute respiratory failure with hypoxia and hypercapnia Current Visit: Yes Status: Acute (2) Abdominal pain Current Visit: Yes Status: Acute Qualifiers: Abdominal location: left upper quadrant Qualified Code(s): R10.12 - Left upper quadrant pain (3) Asthma exacerbation Current Visit: Yes Status: Acute Qualifiers: Asthma severity: moderate Asthma persistence: unspecified Qualified Code(s): J45.901 - Unspecified asthma with (acute) exacerbation (4) Obesity hypoventilation syndrome Current Visit: Yes Status: Acute (5) Acute appendicitis Current Visit: Yes Status: Acute - Plan Physical Exam General: Obese, sedated HEENT: ETT in place Respiratory: diminished throughout, b/l crackles, mech vent. Cardiovascular: No edema, Regular rate/rhythm, Normal S1 S2 Gastrointestinal: Obese. Integumentary: No rashes, No cyanosis Problem List Acute appendicitis s/p lap appy Acute hypoxemic respiratory failure with hypercapnia Asthma exacerbation h/o COVID pneumonia Obesity hypoventilation syndrome acute on chronic anemia, with blood loss (menstrual period) Head Lice s/p lap appendectomy and hernia repair re-intubated on 06/14 AM, placed on levophed initially. Off Levophed drip continue steroids Pulmonology is following. requiring multiple doses of sedation Unclear why patient is so hypoxic, possible PE. Bilateral venous ultrasounds negative, on arixtra per pulm. likely secondary to obesity hypoventilation syndrome and pulmonary fibrosis from recent Covid infection. On IV dexamethasone by pulmonary. echo: normal EF continue tube feeds anemia - multifactorial - acute on chronic, with some blood loss - started menstrual period. mother reports patient has h/o heavy menses, required blood Maintain Hgb > 8, status post transfuse 2u PRBC. Transfuse as needed for hemoglobin less than 8. Continue stool softener, mineral oil added may need trach but FiO2 is high. FiO2 down to 60%. Pulmonary to follow for recommendation for tracheostomy. Dispo: remains critical, Continue ICU level of care.
--- NOTE | 2021-06-19 12:39 | P.PN ---
Subjective Date of Service: 06/19/21 Chief Complaint: Respiratory failure Condition stable still requiring sedation plan to titrate her O2 down Review of Systems is unable to be obtained Physical Examination - Vital Signs Temperature: 98.3 F Blood Pressure: 118/78 Pulse: 66 Respirations: 20 Pulse Ox (%): 95 - Physical Exam General: Unresponsive Respiratory: Clear to auscultation bilaterally, Diminished Cardiovascular: Other Assessment & Plan - Problems (Diagnosis) (1) Acute respiratory failure with hypoxia and hypercapnia Current Visit: Yes Status: Acute Plan: Respiratory failure oxygenation improving plan to continue titrate O2 down to a sat of 90% check ABGs patient responds better to Dilaudid labs medication list reviewed
[2021-06-19 14:51] LABS: Arterial Blood Carboxyhemoglob 1.3 % (0-1.5); Blood Gas Oxyhemoglobin 85.9 % (94-97); Blood O2 Saturation 88.3 % (92-98.5)
[2021-06-20] MEDS: propofoL 1,000 MG/100 ML VIAL IV PRN ×8 (01:07→21:21)
[2021-06-20] MEDS: IPRATROPIUM BROM 0.5MG/2.5ML NEB SCH ×4 (01:50→19:36)
[2021-06-20] MEDS: HYDROMORPHONE HCL 2 MG/ML inj IV PRN (04:42)
[2021-06-20 05:20] LABS: Absolute Lymphocytes (CBC) 1.2 K/uL (0.7-4.9); Hematocrit 28.9 % (36.0-45.0); Lymphocytes % 8.4 % (15.3-44.8); MPV 9.1 fL (7.6-11.3); RBC Red Blood Cell Count 3.09 M/uL (3.86-4.86)
[2021-06-20 05:40] LABS: Phosphorus 3.9 mg/dL (2.5-4.9); Potassium 3.8 mmol/L (3.5-5.1)
[2021-06-20] MEDS: LEVOTHYROXINE SOD 0.075 MG TAB PO SCH (05:40)
[2021-06-20] MEDS: ARFORMOTEROL TARTRATE 15 MCG/2 ML VIAL.NEB NEB SCH (07:30)
[2021-06-20] MEDS: FAMOTIDINE 20 MG/2 ML VIAL IV SCH ×2 (09:02→21:27)
[2021-06-20] MEDS: MINERAL OIL 30 ML UCUP FT SCH (09:02)
[2021-06-20] MEDS: ENOXAPARIN 40 MG/0.4 ML SQ SCH ×2 (09:02→21:27)
[2021-06-20] MEDS: VITAMIN D 1000 UNIT TAB PO SCH (09:02)
[2021-06-20] MEDS: dexAMETHasone 4 MG/ML VIAL IV SCH ×2 (09:02→21:27)
[2021-06-20] MEDS: FERROUS SULFATE 325 MG TAB PO SCH (09:03)
[2021-06-20] MEDS: DOCUSATE NA 100 MG CAP PO SCH ×2 (09:03→21:27)
--- NOTE | 2021-06-20 10:48 | P.PN ---
Subjective Date of Service: 06/20/21 Chief Complaint: Respiratory failure Patient remain intubated. She has tolerated 60% FiO2 for the past 24-hours. Physical Examination - Vital Signs Temperature: 98.4 F Blood Pressure: 99/40 Pulse: 66 Respirations: 20 Pulse Ox (%): 90 Assessment And Plan - Current Problems (Diagnosis) (1) Acute respiratory failure with hypoxia and hypercapnia Current Visit: Yes Status: Acute (2) Abdominal pain Current Visit: Yes Status: Acute Qualifiers: Abdominal location: left upper quadrant Qualified Code(s): R10.12 - Left upper quadrant pain (3) Asthma exacerbation Current Visit: Yes Status: Acute Qualifiers: Asthma severity: moderate Asthma persistence: unspecified Qualified Code(s): J45.901 - Unspecified asthma with (acute) exacerbation (4) Obesity hypoventilation syndrome Current Visit: Yes Status: Acute (5) Acute appendicitis Current Visit: Yes Status: Acute - Plan Physical Exam General: Obese, sedated HEENT: ETT in place Respiratory: diminished throughout, b/l crackles, mech vent. Cardiovascular: No edema, Regular rate/rhythm, Normal S1 S2 Gastrointestinal: Obese. Integumentary: No rashes, No cyanosis Problem List Acute appendicitis s/p lap appy Acute hypoxemic respiratory failure with hypercapnia Asthma exacerbation h/o COVID pneumonia Obesity hypoventilation syndrome acute on chronic anemia, with blood loss (menstrual period) Head Lice s/p lap appendectomy and hernia repair re-intubated on 06/14 AM, placed on levophed initially. Off Levophed drip continue steroids. Continue to wean down FiO2. Unclear why patient is so hypoxic, possible PE. Bilateral venous ultrasounds negative, on arixtra per pulm. likely secondary to obesity hypoventilation syndrome and pulmonary fibrosis from recent Covid infection. On IV dexamethasone by pulmonary. echo: normal EF continue tube feeds anemia - multifactorial - acute on chronic, with blood loss - started menstrual period. mother reports patient has h/o heavy menses. Status post transfuse 2u PRBC. Transfuse as needed for hemoglobin less than 8. Continue stool softener, mineral oil added may need trach. Pulmonary is following. Dispo: remains critical, Continue ICU level of care.
[2021-06-20] MEDS: LORazepam 2 MG/ML VIAL IV PRN (13:44)
[2021-06-21] MEDS: propofoL 1,000 MG/100 ML VIAL IV PRN ×8 (00:43→23:05)
[2021-06-21] MEDS: IPRATROPIUM BROM 0.5MG/2.5ML NEB SCH ×3 (01:25→13:30)
[2021-06-21] MEDS: HYDROMORPHONE HCL 2 MG/ML inj IV PRN (01:58)
[2021-06-21] MEDS: LORazepam 2 MG/ML VIAL IV PRN ×3 (02:39→15:07)
[2021-06-21] MEDS: LEVOTHYROXINE SOD 0.075 MG TAB PO SCH (06:30)
[2021-06-21] MEDS: LEVOTHYROXINE SOD 0.1 MG TAB PO SCH (06:30)
[2021-06-21 07:20] LABS: Hematocrit 27.6 % (36.0-45.0); RBC Red Blood Cell Count 2.95 M/uL (3.86-4.86)
[2021-06-21 07:21] LABS: Lymphocytes % 11.8 % (15.3-44.8); MPV 8.5 fL (7.6-11.3)
[2021-06-21 07:22] LABS: Absolute Lymphocytes (CBC) 1.4 K/uL (0.7-4.9)
[2021-06-21 07:32] LABS: Potassium 3.6 mmol/L (3.5-5.1)
[2021-06-21 07:52] LABS: Blood Morphology Comment NOT SEEN (NOT SEEN); Platelet Estimate ADEQ; White Blood Cell Scan OK (OK)
[2021-06-21] MEDS: ENOXAPARIN 40 MG/0.4 ML SQ SCH ×2 (09:25→21:20)
[2021-06-21] MEDS: dexAMETHasone 4 MG/ML VIAL IV SCH ×2 (09:25→21:20)
[2021-06-21] MEDS: DOCUSATE NA 100 MG CAP PO SCH ×2 (09:25→21:20)
[2021-06-21] MEDS: FERROUS SULFATE 325 MG TAB PO SCH (09:25)
[2021-06-21] MEDS: VITAMIN D 1000 UNIT TAB PO SCH (09:25)
[2021-06-21] MEDS: MINERAL OIL 30 ML UCUP FT SCH (09:26)
[2021-06-21] MEDS: FAMOTIDINE 20 MG/2 ML VIAL IV SCH ×2 (09:26→21:20)
--- NOTE | 2021-06-21 13:26 | P.PN ---
Subjective Date of Service: 06/21/21 Chief Complaint: Respiratory failure Patient oxygen requirements decreasing. She is now tolerating 45% FiO2. Physical Examination - Vital Signs Temperature: 98.9 F Blood Pressure: 124/78 Pulse: 73 Respirations: 23 Pulse Ox (%): 98 Assessment And Plan - Current Problems (Diagnosis) (1) Acute respiratory failure with hypoxia and hypercapnia Current Visit: Yes Status: Acute (2) Abdominal pain Current Visit: Yes Status: Acute Qualifiers: Abdominal location: left upper quadrant Qualified Code(s): R10.12 - Left upper quadrant pain (3) Asthma exacerbation Current Visit: Yes Status: Acute Qualifiers: Asthma severity: moderate Asthma persistence: unspecified Qualified Code(s): J45.901 - Unspecified asthma with (acute) exacerbation (4) Obesity hypoventilation syndrome Current Visit: Yes Status: Acute (5) Acute appendicitis Current Visit: Yes Status: Acute - Plan Physical Exam General: Obese, sedated HEENT: ETT in place Respiratory: diminished throughout, b/l crackles, mech vent. Cardiovascular: No edema, Regular rate/rhythm, Normal S1 S2 Gastrointestinal: Obese. Integumentary: No rashes, No cyanosis Problem List Acute appendicitis s/p lap appy Acute hypoxemic respiratory failure with hypercapnia Asthma exacerbation h/o COVID pneumonia Obesity hypoventilation syndrome acute on chronic anemia, with blood loss (menstrual period) Head Lice s/p lap appendectomy and hernia repair re-intubated on 06/14 AM, placed on levophed initially. Off Levophed drip continue steroids. Continue to wean down FiO2. Bilateral venous ultrasounds negative, on arixtra per pulm. Hypoxia likely secondary to obesity hypoventilation syndrome and pulmonary fibrosis from recent Covid infection. On IV dexamethasone by pulmonary. echo: normal EF continue tube feeds anemia - multifactorial - acute on chronic, with blood loss - started menstrual period. mother reports patient has h/o heavy menses. Status post transfuse 2u PRBC. Transfuse as needed for hemoglobin less than 8. Continue stool softener, mineral oil added pulmonary is following. Vent weaning trials per pulmonary. Dispo: remains critical, Continue ICU level of care.
--- NOTE | 2021-06-21 13:28 | P.PN ---
Subjective Date of Service: 06/21/21 Chief Complaint: Respiratory failure Condition stable still requiring sedation patient is improving FiO2 declining Review of Systems is unable to be obtained Physical Examination - Vital Signs Temperature: 98.9 F Blood Pressure: 124/78 Pulse: 73 Respirations: 23 Pulse Ox (%): 98 - Physical Exam General: Unresponsive Assessment & Plan - Problems (Diagnosis) (1) Acute respiratory failure with hypoxia and hypercapnia Current Visit: Yes Status: Acute Plan: Respiratory failure patient continues to improve oxygen levels requirements are declining labs reviewed medication list reviewed no change in current therapy patient tolerating tube feeds hemoglobin stable patient is on DVT prophylaxis and IV steroid
[2021-06-22] MEDS: propofoL 1,000 MG/100 ML VIAL IV PRN ×9 (01:26→23:38)
[2021-06-22] MEDS: IPRATROPIUM BROM 0.5MG/2.5ML NEB SCH ×4 (02:07→20:00)
[2021-06-22] MEDS: LEVOTHYROXINE SOD 0.1 MG TAB PO SCH (06:42)
[2021-06-22] MEDS: LEVOTHYROXINE SOD 0.075 MG TAB PO SCH (06:42)
[2021-06-22] MEDS: VITAMIN D 1000 UNIT TAB PO SCH (08:31)
[2021-06-22] MEDS: FERROUS SULFATE 325 MG TAB PO SCH (08:31)
[2021-06-22] MEDS: ENOXAPARIN 40 MG/0.4 ML SQ SCH ×2 (08:31→20:27)
[2021-06-22] MEDS: MINERAL OIL 30 ML UCUP FT SCH (08:32)
[2021-06-22] MEDS: DOCUSATE NA 100 MG CAP PO SCH ×2 (08:32→20:27)
[2021-06-22] MEDS: FAMOTIDINE 20 MG/2 ML VIAL IV SCH ×2 (08:32→20:28)
[2021-06-22] MEDS: dexAMETHasone 4 MG/ML VIAL IV SCH ×2 (08:32→20:27)
--- NOTE | 2021-06-22 09:15 | RAD REPORT ---
EXAM DESCRIPTION: Rosario Single View06/22/2021 6:35 am CLINICAL HISTORY: Respiratory failure COMPARISON: June 19, 2021 FINDINGS: Some improvement in bilateral pulmonary opacities. Heart remains enlarged Endotracheal tube with its tip 15 millimeters above greyson. NG tube within stomach. PICC line in plac e IMPRESSION: Partial resolution in the bilateral pulmonary opacities
[2021-06-22] MEDS ORDERED: LICE TREATMENT 1 APPL/120 ML BTL TOP SCH (11:15)
--- NOTE | 2021-06-22 11:16 | P.PN ---
Subjective Date of Service: 06/22/21 Chief Complaint: Respiratory failure Patient is awake on the vent. FiO2 of 50% and on pressure control. Physical Examination - Vital Signs Temperature: 99.0 F Blood Pressure: 125/72 Pulse: 68 Respirations: 13 Pulse Ox (%): 93 Assessment And Plan - Current Problems (Diagnosis) (1) Acute respiratory failure with hypoxia and hypercapnia Current Visit: Yes Status: Acute (2) Abdominal pain Current Visit: Yes Status: Acute Qualifiers: Abdominal location: left upper quadrant Qualified Code(s): R10.12 - Left upper quadrant pain (3) Asthma exacerbation Current Visit: Yes Status: Acute Qualifiers: Asthma severity: moderate Asthma persistence: unspecified Qualified Code(s): J45.901 - Unspecified asthma with (acute) exacerbation (4) Obesity hypoventilation syndrome Current Visit: Yes Status: Acute (5) Acute appendicitis Current Visit: Yes Status: Acute - Plan Physical Exam General: Obese, sedated HEENT: ETT in place Respiratory: diminished throughout, b/l crackles, mech vent. Cardiovascular: No edema, Regular rate/rhythm, Normal S1 S2 Gastrointestinal: Obese. Integumentary: No rashes, No cyanosis Problem List Acute appendicitis s/p lap appy Acute hypoxemic respiratory failure with hypercapnia Asthma exacerbation h/o COVID pneumonia Obesity hypoventilation syndrome acute on chronic anemia, with blood loss (menstrual period) Head Lice s/p lap appendectomy and hernia repair re-intubated on 06/14 AM, placed on levophed initially. Off Levophed drip continue steroids. Bilateral venous ultrasounds negative, on arixtra per pulm. Hypoxia likely secondary to obesity hypoventilation syndrome and pulmonary fibrosis from recent Covid infection. On IV dexamethasone by pulmonary. echo: normal EF continue tube feeds anemia - multifactorial - acute on chronic, with blood loss - started menstrual period. mother reports patient has h/o heavy menses. Status post transfuse 2u PRBC. Transfuse as needed for hemoglobin less than 8. Continue stool softener, mineral oil added pulmonary is following. Continue to wean FiO2. Daily weaning trials. Dispo: remains critical, Continue ICU level of care.
[2021-06-22] MEDS: LORazepam 2 MG/ML VIAL IV PRN (13:17)
[2021-06-23] MEDS: IPRATROPIUM BROM 0.5MG/2.5ML NEB SCH ×4 (02:00→20:10)
[2021-06-23] MEDS: NOREPINEPHRINE 4 MG in D5W 250 ML IV SCH (03:45)
[2021-06-23 06:05] LABS: Albumin 2.8 g/dL (3.4-5.0); Bilirubin Total 0.3 mg/dL (0.2-1.0); Potassium 4.3 mmol/L (3.5-5.1)
[2021-06-23] MEDS: LEVOTHYROXINE SOD 0.075 MG TAB PO SCH (06:30)
[2021-06-23] MEDS: LEVOTHYROXINE SOD 0.1 MG TAB PO SCH (06:30)
[2021-06-23] MEDS: propofoL 1,000 MG/100 ML VIAL IV PRN ×5 (06:49→22:31)
--- NOTE | 2021-06-23 08:01 | RAD REPORT ---
EXAM DESCRIPTION: RAD - Chest Single View - 06/23/2021 6:53 am CLINICAL HISTORY: Respiratory failure COMPARISON: June 22, June 19 TECHNIQUE: AP portable chest image was obtained 06/23/2021 6:53 am . FINDINGS: Film technique is suboptimal. Endotracheal tube tip is positioned between the clavicle heads 4.5 cm above the greyson. This is adequ ately positioned. NG/OG tube extends below the diaphragm, off the field of view. Lung volumes remain low. The infiltrate and/ or atelectasis changes show continued improvement. No pr ogressive lung parenchymal process. Cardiac silhouette remains enlarged. Pulmonary vasculature similar to decreased in prominence. No hriannon surable pleural effusion and no pneumothorax. No acute bony abnormality seen. No acute aortic finding s suspected. IMPRESSION: Continued clearing of the bilateral lung parenchymal opacities. Enlarged cardiac silhouette similar to comparison. ET tube in good position.
[2021-06-23 08:21] LABS: Absolute Lymphocytes (CBC) 3.7 K/uL (0.7-4.9); Hematocrit 23.4 % (36.0-45.0); Lymphocytes % 12.8 % (15.3-44.8); MPV 9.7 fL (7.6-11.3); RBC Red Blood Cell Count 2.53 M/uL (3.86-4.86)
[2021-06-23] MEDS ORDERED: VANCOMYCIN 1 GM in NA CHLORIDE 0.9% 250 ML IVPB SCH (09:00)
[2021-06-23] MEDS: ENOXAPARIN 40 MG/0.4 ML SQ SCH (09:00)
[2021-06-23] MEDS: MINERAL OIL 30 ML UCUP FT SCH (09:04)
[2021-06-23] MEDS: DOCUSATE NA 100 MG CAP PO SCH ×2 (09:04→20:41)
[2021-06-23] MEDS: FERROUS SULFATE 325 MG TAB PO SCH (09:04)
[2021-06-23] MEDS: VITAMIN D 1000 UNIT TAB PO SCH (09:04)
[2021-06-23] MEDS: dexAMETHasone 4 MG/ML VIAL IV SCH ×2 (09:04→20:41)
[2021-06-23] MEDS: FAMOTIDINE 20 MG/2 ML VIAL IV SCH ×2 (09:04→20:38)
[2021-06-23 10:10] LABS: Blood Morphology Comment NOT SEEN (NOT SEEN); Platelet Estimate ADEQ
[2021-06-23] MEDS: VANCOMYCIN 2 GM in NA CHLORIDE 0.9% 500 ML IV SCH (10:31)
[2021-06-23] MEDS: Levofloxacin 750mg IV 750 MG/150 ML BAG IV SCH (10:31)
--- NOTE | 2021-06-23 11:33 | P.PN ---
Subjective Date of Service: 06/23/21 Chief Complaint: Respiratory failure Patient is awake on the vent. FiO2 of 50% and on pressure control. Nurse report patient became hypotensive last night and was started on Levophed drip. WBC count trended up to 28,000 today. Physical Examination - Vital Signs Temperature: 98.5 F Blood Pressure: 99/40 Pulse: 93 Respirations: 20 Pulse Ox (%): 97 Assessment And Plan - Current Problems (Diagnosis) (1) Acute respiratory failure with hypoxia and hypercapnia Current Visit: Yes Status: Acute (2) Abdominal pain Current Visit: Yes Status: Acute Qualifiers: Abdominal location: left upper quadrant Qualified Code(s): R10.12 - Left upper quadrant pain (3) Asthma exacerbation Current Visit: Yes Status: Acute Qualifiers: Asthma severity: moderate Asthma persistence: unspecified Qualified Code(s): J45.901 - Unspecified asthma with (acute) exacerbation (4) Obesity hypoventilation syndrome Current Visit: Yes Status: Acute (5) Acute appendicitis Current Visit: Yes Status: Acute - Plan Physical Exam General: Obese, sedated HEENT: ETT in place Respiratory: diminished throughout, b/l crackles, mech vent. Cardiovascular: No edema, Regular rate/rhythm, Normal S1 S2 Gastrointestinal: Obese. Integumentary: No rashes, No cyanosis Problem List Acute appendicitis s/p lap appy Acute hypoxemic respiratory failure with hypercapnia Asthma exacerbation h/o COVID pneumonia Obesity hypoventilation syndrome acute on chronic anemia, with blood loss (menstrual period) Head Lice s/p lap appendectomy and hernia repair re-intubated on 06/14 AM, placed on levophed initially. Off Levophed drip continue steroids. Bilateral venous ultrasounds negative, on arixtra per pulm. Hypoxia likely secondary to obesity hypoventilation syndrome and pulmonary fibrosis from recent Covid infection. On IV dexamethasone by pulmonary. WBC trended up. Patient became hypotensive. Concern for septic shock. Reculture blood, started broad-spectrum IV antibiotic-Levaquin and vancomycin. echo: normal EF continue tube feeds anemia - multifactorial - acute on chronic, with blood loss - started menstrual period. mother reports patient has h/o heavy menses. Status post transfuse 2u PRBC. Transfuse as needed for hemoglobin less than 8. Continue stool softener, mineral oil added pulmonary is following. Continue to wean FiO2. Daily weaning trials. Dispo: remains critical, Continue ICU level of care.
[2021-06-23] MEDS ORDERED: NOREPINEPHRINE 8 MG in D5W 500 ML IV SCH (12:00)
[2021-06-23] MEDS ORDERED: NA CHLORIDE 0.9% 250 ML IV PRN (17:20)
[2021-06-23] MEDS: NA CHLORIDE 0.9% 250 ML IV SCH (17:54)
[2021-06-23] MEDS: VITAL HP 1,000 ML BOT RTH SCH (20:48)
[2021-06-23] MEDS: FLUCONAZOLE 200mg IVPB 400 MG/200 ML BAG IV SCH (22:31)
[2021-06-24] MEDS: propofoL 1,000 MG/100 ML VIAL IV PRN ×8 (02:01→23:41)
[2021-06-24] MEDS: IPRATROPIUM BROM 0.5MG/2.5ML NEB SCH ×4 (02:08→19:15)
[2021-06-24 05:32] LABS: Absolute Lymphocytes (CBC) 1.9 K/uL (0.7-4.9); Lymphocytes % 10.5 % (15.3-44.8); MPV 8.8 fL (7.6-11.3); RBC Red Blood Cell Count 1.94 M/uL (3.86-4.86)
[2021-06-24 05:35] LABS: Hematocrit 18.1 % (36.0-45.0)
[2021-06-24] MEDS: LEVOTHYROXINE SOD 0.1 MG TAB PO SCH (05:56)
[2021-06-24] MEDS: LEVOTHYROXINE SOD 0.075 MG TAB PO SCH (05:57)
[2021-06-24 07:33] LABS: Phosphorus 3.2 mg/dL (2.5-4.9)
--- NOTE | 2021-06-24 08:37 | P.PN ---
Subjective Date of Service: 06/24/21 Chief Complaint: Respiratory failure Condition stable currently on 50% FiO2 unable to wean down Review of Systems is unable to be obtained Physical Examination - Vital Signs Temperature: 98.1 F Blood Pressure: 97/58 Pulse: 93 Respirations: 21 Pulse Ox (%): 96 - Physical Exam General: Unresponsive Respiratory: Clear to auscultation bilaterally, Diminished Cardiovascular: No edema Assessment & Plan - Problems (Diagnosis) (1) Acute respiratory failure with hypoxia and hypercapnia Current Visit: Yes Status: Acute Plan: Respiratory failure day 16 unable to wean off the ventilator currently on 50% FiO2 consult ENT for a trach possible sepsis patient is now on broad-spectrum antibiotic blood and sputum cultures ordered endotracheal tube satisfactory reduce dose of Solu-Medrol
[2021-06-24] MEDS: VITAMIN D 1000 UNIT TAB PO SCH (09:11)
[2021-06-24] MEDS: FAMOTIDINE 20 MG/2 ML VIAL IV SCH ×2 (09:11→20:07)
[2021-06-24] MEDS: FLUCONAZOLE 200mg IVPB 400 MG/200 ML BAG IV SCH ×2 (09:12→20:07)
[2021-06-24] MEDS: FERROUS SULFATE 325 MG TAB PO SCH (09:12)
[2021-06-24] MEDS: DOCUSATE NA 100 MG CAP PO SCH ×2 (09:12→20:08)
[2021-06-24] MEDS: MINERAL OIL 30 ML UCUP FT SCH (09:12)
[2021-06-24] MEDS: dexAMETHasone 4 MG/ML VIAL IV SCH ×2 (09:12→20:07)
--- NOTE | 2021-06-24 09:27 | RAD REPORT ---
EXAM DESCRIPTION: RAD - Chest Single View - 06/24/2021 5:59 am CLINICAL HISTORY: Respiratory failure Chest pain. COMPARISON: Chest Single View dated 06/23/2021; Chest Single View dated 06/22/2021; Chest Single View dated 06/19/2021; Chest Single View dated 06/18/2021 FINDINGS: Portable technique limits examination quality. Tip of the endotracheal tube is at the level of the clavicular heads. Right-sided PICC line and endot isi tube a in place. The lungs are underinflated with moderate bilateral pulmonary opacities, joe earing mildly progressive. The heart is enlarged.
[2021-06-24] MEDS: Levofloxacin 750mg IV 750 MG/150 ML BAG IV SCH ×3 (10:00→18:06)
--- NOTE | 2021-06-24 10:52 | P.PN ---
Subjective Date of Service: 06/24/21 Chief Complaint: Respiratory failure Patient is awake on the vent. Still on FiO2 of 50% and on pressure control. Her oxygen requirement seems to fluctuate. She was briefly on Levophed drip which was weaned off last night. Blood pressure is soft. WBC count trended down from yesterday. Physical Examination - Vital Signs Temperature: 98.1 F Blood Pressure: 97/58 Pulse: 93 Respirations: 21 Pulse Ox (%): 96 Assessment And Plan - Current Problems (Diagnosis) (1) Acute respiratory failure with hypoxia and hypercapnia Current Visit: Yes Status: Acute (2) Abdominal pain Current Visit: Yes Status: Acute Qualifiers: Abdominal location: left upper quadrant Qualified Code(s): R10.12 - Left upper quadrant pain (3) Asthma exacerbation Current Visit: Yes Status: Acute Qualifiers: Asthma severity: moderate Asthma persistence: unspecified Qualified Code(s): J45.901 - Unspecified asthma with (acute) exacerbation (4) Obesity hypoventilation syndrome Current Visit: Yes Status: Acute (5) Acute appendicitis Current Visit: Yes Status: Acute - Plan Physical Exam General: Obese, sedated HEENT: ETT in place Respiratory: diminished throughout, b/l crackles, mech vent. Cardiovascular: No edema, Regular rate/rhythm, Normal S1 S2 Gastrointestinal: Obese. Integumentary: No rashes, No cyanosis Problem List Acute appendicitis s/p lap appy Acute hypoxemic respiratory failure with hypercapnia Asthma exacerbation h/o COVID pneumonia Obesity hypoventilation syndrome acute on chronic anemia, with blood loss (menstrual period) Head Lice s/p lap appendectomy and hernia repair re-intubated on 06/14 AM, placed on levophed initially. Off Levophed drip continue steroids. Bilateral venous ultrasounds negative, Lovenox on hold due to anemia. Hypoxia likely secondary to obesity hypoventilation syndrome and pulmonary fibrosis from recent Covid infection. On IV dexamethasone by pulmonary. Dose reduced today per pulmonary Continue broad-spectrum IV antibiotic-Levaquin and vancomycin. echo: normal EF continue tube feeds anemia - multifactorial - acute on chronic, with blood loss - started menstrual period. mother reports patient has h/o heavy menses. Status post transfuse 2u PRBC. Transfuse 2 units PRBC today. Transfuse as needed for hemoglobin less than 8. Continue stool softeners pulmonary is following and considering tracheostomy for failed attempt at extubation. Continue to wean FiO2. Daily weaning trials. Dispo: remains critical, Continue ICU level of care.
[2021-06-24] MEDS: VANCOMYCIN 2 GM in NA CHLORIDE 0.9% 500 ML IV SCH (11:13)
[2021-06-24 16:36] LABS: Magnesium 2.6
--- NOTE | 2021-06-24 18:43 | P.PN ---
Date of Service: 06/25/21 Subjective: Hgb down to 5.9 yesterday, 6.0 this mornig, s/p 2u pRBCs Hemoccult repeated 06/24, negative No source of this bleeding. Menses Resolved Patient awake on vent, follows basic commands, with some confusion ROS: Unable to be obtained/sedated Physical Exam General: Obese, opens eyes to auditory stimuli HEENT: ETT in place Respiratory: on mech vent, FiO2: 40% Cardiovascular: Regular rate and rhythm, no murmur Gastrointestinal: Soft, nontender, nondistended Integumentary: No rash Problem List Acute appendicitis s/p lap appy Acute hypoxemic respiratory failure with hypercapnia Asthma exacerbation h/o COVID pneumonia Obesity hypoventilation syndrome acute on chronic anemia, with blood loss (menstrual period) Head Lice s/p lap appendectomy and hernia repair. Prolonged intubation postoperatively, extubated 06/13 re-intubated on 06/14 AM, placed on levophed initially. off drip Pulmonology consulted - continue steroids Unclear why patient is so hypoxic, possible PE. Bilateral venous ultrasounds negative, initially on arixtra per pulm, now held secondary to anemia. Hypoxia likely secondary to obesity hypoventilation syndrome and pulm fibrosis from recent COVID infection continue broad spectrum IV abx - levaquin, vanc. continue diflucan per pulm echo: normal EF continue tube feeds anemia - multifactorial - acute on chronic, with some blood loss - started menstrual period. mother reports patient has h/o heavy menses, required blood transfusion x2 in past due to them maintain Hgb > 8, 2u PRBC on 06/24 transfused - total 4 units. another 2u PRBC ordered this morning continue stool softeners ENT consulted on 06/24 for tracheostomy FiO2 improving, pulmonology planning to attempt to wean, possible extubation. If unable to be extubated or requiring reintubation, will need tracheostomy Code: full Dispo: continue ICU level of care, prolonged hospitalization Time spent managing patient's care: 35 minutes
[2021-06-24 21:21] LABS: Hematocrit 18.1 % (36.0-45.0)
--- NOTE | 2021-06-24 22:36 | P.PN ---
Date of Service: 06/24/21 Called by nursing staff, repeat hemoglobin after 2 units packed red blood cell transfusion went from 5.9-6.0. Patient without signs of obvious active bleeding, when up to examine patient performed Hemoccult testing which was negative, OG was also switched to suction briefly which returned gastric contents/tube feed without any signs of coffee-ground emesis or bright red blood. Will transfuse additional 2 units packed red blood cells recheck hemoglobin in the morning. Nursing staff also reports that this last check was pulled from PICC line, will obtain repeat from peripheral vein.
[2021-06-24] MEDS ORDERED: PANTOPRAZOLE INJ 80 MG in NA CHLORIDE 0.9% 250 ML IV SCH (23:00)
[2021-06-24] MEDS ORDERED: NA CHLORIDE 0.9% 250 ML IV SCH (23:00)
[2021-06-25] MEDS: IPRATROPIUM BROM 0.5MG/2.5ML NEB SCH ×4 (01:57→19:30)
[2021-06-25] MEDS: propofoL 1,000 MG/100 ML VIAL IV PRN ×4 (01:57→09:59)
[2021-06-25] MEDS: LEVOTHYROXINE SOD 0.1 MG TAB PO SCH (06:28)
[2021-06-25] MEDS: LEVOTHYROXINE SOD 0.075 MG TAB PO SCH (06:28)
[2021-06-25 06:34] VITALS: BMI 63.2
--- NOTE | 2021-06-25 07:30 | RAD REPORT ---
EXAM DESCRIPTION: RAD - Chest Single View - 06/25/2021 5:55 am CLINICAL HISTORY: Respiratory failure COMPARISON: Chest Single View dated 06/24/2021; Chest Single View dated 06/23/2021; Chest Single View dated 06/22/2021; Chest Single View dated 06/19/2021; Chest Single View dated 06/07/2021; Chest Single V iew dated 06/09/2021 FINDINGS: Lines: Endotracheal tube at the aortic arch in satisfactory position. Enteric tube below t he diaphragm. PICC in similar position. Lungs: Bilateral airspace opacities with mildly improved aeration noted though this could be techniqu e related. Pleural: Small effusions difficult to exclude. Cardiac: Cardiomegaly. Bones: No acute fractures. Other: IMPRESSION: Airspace disease bilaterally with marginal improvement compared with 06/24/2021. Stable support apparatus.
[2021-06-25] MEDS: VITAMIN D 1000 UNIT TAB PO SCH (08:40)
[2021-06-25] MEDS: FAMOTIDINE 20 MG/2 ML VIAL IV SCH ×2 (08:41→20:44)
[2021-06-25] MEDS: DOCUSATE NA 100 MG CAP PO SCH ×2 (08:41→20:45)
[2021-06-25] MEDS: MINERAL OIL 30 ML UCUP FT SCH (08:43)
[2021-06-25] MEDS: dexAMETHasone 4 MG/ML VIAL IV SCH ×2 (08:44→20:42)
[2021-06-25] MEDS: FERROUS SULFATE 325 MG TAB PO SCH (08:46)
[2021-06-25] MEDS: HYDROMORPHONE HCL 2 MG/ML inj IV PRN (08:47)
[2021-06-25 10:03] LABS: Absolute Lymphocytes (CBC) 2.3 K/uL (0.7-4.9); Hematocrit 23.9 % (36.0-45.0); Lymphocytes % 15.3 % (15.3-44.8); MPV 9.5 fL (7.6-11.3); RBC Red Blood Cell Count 2.59 M/uL (3.86-4.86)
[2021-06-25 10:18] LABS: Albumin 3.1 g/dL (3.4-5.0); Bilirubin Total 0.5 mg/dL (0.2-1.0); Potassium 4.1 mmol/L (3.5-5.1); Protein, Total 6.8 g/dL (6.4-8.2)
[2021-06-25] MEDS: FLUCONAZOLE 200mg IVPB 400 MG/200 ML BAG IV SCH ×2 (10:39→21:01)
[2021-06-25] MEDS: VANCOMYCIN 2 GM in NA CHLORIDE 0.9% 500 ML IV SCH ×2 (11:02→22:44)
--- NOTE | 2021-06-25 15:57 | RAD REPORT ---
EXAM DESCRIPTION: RAD - Knee Left 2 View - 06/25/2021 3:49 pm CLINICAL HISTORY: Left knee pain COMPARISON: Knee Left 3 View dated 02/25/2020; Knee Left 3 View dated 11/20/2019 FINDINGS: Mild medial compartment space arthritic changes are present. No fracture or dislocation is seen. Trace suprapatellar joint fluid.
[2021-06-25] MEDS: LORazepam 2 MG/ML VIAL IV PRN (18:10)
[2021-06-25 18:12] LABS: Hematocrit 24.1 % (36.0-45.0); MPV 9.4 fL (7.6-11.3); RBC Red Blood Cell Count 2.59 M/uL (3.86-4.86)
[2021-06-25] MEDS ORDERED: ALBUTEROL 2.5 MG/3 ML NEB SOL NEB PRN (18:29)
[2021-06-25] MEDS: Levofloxacin 750mg IV 750 MG/150 ML BAG IV SCH (20:45)
[2021-06-26] MEDS: LORazepam 2 MG/ML VIAL IV PRN (00:48)
[2021-06-26] MEDS: IPRATROPIUM BROM 0.5MG/2.5ML NEB SCH ×4 (02:00→20:00)
[2021-06-26] MEDS: LEVOTHYROXINE SOD 0.075 MG TAB PO SCH (05:51)
[2021-06-26] MEDS: LEVOTHYROXINE SOD 0.1 MG TAB PO SCH (05:51)
--- NOTE | 2021-06-26 06:20 | P.PN ---
Date of Service: 06/26/21 Subjective: extubated yesterday No acute events overnight Patient refusing medications and labs this morning L knee discomfort, some shortness of breath, + anxiety Sore throat ROS: 10 point review of systems otherwise negative Physical Exam General: Morbidly obese, follows commands HEENT: Normal conjunctiva, sclera anicteric Respiratory: Nonlabored respirations on nasal cannula Cardiovascular: Regular rate and rhythm Gastrointestinal: Soft, nontender, nondistended Integumentary: No rash Problem List Acute appendicitis s/p lap appy Acute hypoxemic respiratory failure with hypercapnia Asthma exacerbation Coagulase-negative staph bacteremia h/o COVID pneumonia Obesity hypoventilation syndrome acute on chronic anemia, with blood loss (menstrual period) Head Lice s/p lap appendectomy and hernia repair. Prolonged intubation postoperatively, extubated 06/13, re-intubated on 06/14 AM; extubated again on 06/25. Intermittently required Levophed Pulmonology consulted Unclear why patient is so hypoxic, initially was some concern for PE. Bilateral venous ultrasounds negative, initially on arixtra per pulm, now held secondary to anemia. Hypoxia likely secondary to obesity hypoventilation syndrome and pulm fibrosis from recent COVID infection continue broad spectrum IV abx - levaquin, vanc. continue diflucan per pulm Blood cultures on 06/23: Staph hominis, ID consulted, recommends treatment for bacteremia echo: normal EF Speech therapy consulted anemia - multifactorial - acute on chronic, with some blood loss - started menstrual period. mother reports patient has h/o heavy menses, required blood transfusion x2 in past due to them maintain Hgb > 8, 2u PRBC on 06/24 transfused and 06/25 - total 6 units. continue stool softeners Code: full Dispo: continue ICU level of care, prolonged hospitalization Time spent managing patient's care: 35 minutes
--- NOTE | 2021-06-26 07:30 | RAD REPORT ---
EXAM DESCRIPTION: RAD - Chest Single View - 06/26/2021 5:51 am CLINICAL HISTORY: Respiratory failure COMPARISON: Chest Single View dated 06/25/2021; Chest Single View dated 06/24/2021; Chest Single View d ated 06/23/2021; Chest Single View dated 06/22/2021 FINDINGS: Lines: Right subclavian approach PICC. Lungs: Widespread bilateral pulmonary opacities. Pleural: Probable layering pleural effusions, right greater than left Cardiac: Cardiomegaly. Bones: No acute fractures. Other: IMPRESSION: Marked worsening of bilateral airspace disease concerning for pulmonary edema.
[2021-06-26] MEDS: dexAMETHasone 4 MG/ML VIAL IV SCH ×2 (08:05→20:18)
[2021-06-26] MEDS: DOCUSATE NA 100 MG CAP PO SCH ×2 (08:05→20:18)
[2021-06-26] MEDS: FERROUS SULFATE 325 MG TAB PO SCH (08:06)
[2021-06-26] MEDS: MINERAL OIL 30 ML UCUP FT SCH (08:06)
[2021-06-26] MEDS: FAMOTIDINE 20 MG/2 ML VIAL IV SCH ×2 (08:07→20:18)
[2021-06-26] MEDS: VITAMIN D 1000 UNIT TAB PO SCH (08:07)
[2021-06-26] MEDS: FLUCONAZOLE 200mg IVPB 400 MG/200 ML BAG IV SCH ×2 (08:18→20:25)
[2021-06-26] MEDS: VANCOMYCIN 2 GM in NA CHLORIDE 0.9% 500 ML IV SCH (10:00)
[2021-06-26 11:29] LABS: Absolute Lymphocytes (CBC) 1.7 K/uL (0.7-4.9); Hematocrit 24.6 % (36.0-45.0); Lymphocytes % 11.6 % (15.3-44.8); RBC Red Blood Cell Count 2.61 M/uL (3.86-4.86)
--- NOTE | 2021-06-26 12:02 | P.CNS ---
Date of Consult: 06/26/21 Chief Complaint: Respiratory failure History of Present Illness: The patient is a 36-year-old female with a past medical history of hypothyroidism and asthma who initially presented to the emergency department secondary to left upper quadrant abdominal pain. Patient has had a lengthy hospital stay since admission on 06/08. Patient was found to have acute appendicitis and underwent umbilical hernia repair and laparoscopic appendectomy on 06/09. Patient was placed on BiPAP however was desatting and was ultimately intubated. Patient was extubated on 06/13, reintubated on 06/14, and extubated on 06/25. Patient currently on pressors, steroid therapy, and broad-spectrum IV antibiotics with vancomycin and Levaquin. Patient is also on fluconazole per pulmonology recommendations. Infectious disease has been consulted as patient's blood cultures obtained on 06/23 grew vancomycin resistant staph epi in2/4 bottles (both aerobic) . Repeat blood cultures are pending. Urine analysis had multiple squamous cells and reflex culture was not performed. Repeat urine analysis and urine culture ordered on 06/26. Recent sputum culture growing normal respiratory elyssa. Patient currently reports diffuse abdominal pain. Currently utilizing 3 L of oxygen via nasal cannula. Patient has multiple drug allergies including allergies to macrolides, penicillins, and Bactrim. Allergies erythromycin base Allergy (Verified 06/23/21 08:58) Hives/Rash Penicillins Allergy (Verified 06/23/21 08:58) Hives/Rash Sulfa (Sulfonamide Antibiotics) Allergy (Verified 06/23/21 08:58) Hives/Rash sulfamethoxazole [From Bactrim] Allergy (Verified 06/23/21 08:58) Unknown trimethoprim [From Bactrim] Allergy (Verified 06/23/21 08:58) Unknown Home Medications: Cholecalciferol (Vitamin D3) [Vitamin D 1000 Iu Tab*] 4,000 unit PO DAILY 30 Days tab 08/10/20 Levothyroxine Sodium [Synthroid] 150 mcg PO DAILY 30 Days #30 tablet 08/10/20 Zinc Sulfate [Zinc Sulfate*] 220 mg PO DAILY 30 Days cap 08/10/20 Albuterol Neb [Proventil 0.083% Neb Soln] 1 amp IH Q6H PRN 06/08/21 Albuterol Sulfate [Proair Hfa] 2 puff IH Q4H PRN 06/08/21 Ascorbic Acid [Vitamin C*] 500 mg PO DAILY 06/08/21 Budesonide [Pulmicort] 1 amp NEB BID PRN 06/08/21 Ferrous Sulfate [Iron] 325 mg PO DAILY 06/08/21 Lorazepam [Ativan] 1 mg PO Q4H PRN 06/08/21 - Past Medical/Surgical History Diabetic: No -: hypothyroidism -: anxiety -: depression -: bipolar -: Asthma -: Anxiety -: COVID pneumonia -: c section -: tubal ligation -: tonsillectomy -: Adenoidectomy Psychosocial/ Personal History: 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 - Family History Father Medical History: Other (see notes) Notes: drug addict Mother Medical History: Heart disease, Hypertension, Lung disease, Diabetes, Stroke, Other (see notes) Notes: copd,chf - Social History Smoking Status: Current every day smoker Alcohol use: No CD- Drugs: No Caffeine use: Yes Place of Residence: Home Review of Systems 10-point ROS is otherwise unremarkable Physical Examination Temp Pulse Resp BP Pulse Ox 98.5 F 79 24 H 136/78 92 06/26/21 08:00 06/26/21 11:00 06/26/21 11:00 06/26/21 11:00 06/26/21 11:00 General: Alert, In no apparent distress, Obese HEENT: Atraumatic, Normocephalic Neck: Supple Respiratory: Other (Crackles/rales bilateral ) Cardiovascular: Other (pedal edema ) Capillary refill: <2 Seconds Gastrointestinal: Tenderness (diffuse) Musculoskeletal: No clubbing, No swelling, No contractures Integumentary: No rashes, No breakdown Urinary: Fitzgerald catheter Conclusions/Impression: Antibiotics: Daptomycin start urrent Levaquin start 06/24current Vancomycin start Assessment/plan Gram-positive bacteremia Blood cultures obtained on 06/23 grew staph epi in both aerobic bottles. Repeat cultures pending. Source of infection unclear--possible right arm PICC line that was placed 2 weeks ago. Susceptibility showed resistance to vancomycin. Patient started on daptomycin on 06/26, recommend continuing for 7 to 10 days from negative blood culture report. Baseline creatinine phosphokinase ordered. Acute hypoxic respiratory failure Patient intubated on admission, extubated on 06/13 reintubated on 06/14, extubated on 06/25. Currently stable on 3 L of oxygen via nasal cannula. Most recent chest x-ray on 06/26 showed marked worsening of bilateral airspace disease. Could be sequela of Covid 19 infection in February versus pulmonary edema versus acute pneumonia. Recommend continuing Levaquin for 5 to 7 days. Pulmonology following. Patient currently receiving dexamethasone 2 mg every 12. Sputum culture growing normal respiratory elyssa. Anemia Continue to monitor H&H. Recommend transfusion if hemoglobin drops below 7.0 Morbid obesity Hypothyroidism Asthma -Medical management per primary team Plan of care discussed with Dr. Barksdale Thank you for consultation
[2021-06-26 12:18] LABS: Albumin 3.3 g/dL (3.4-5.0); Bilirubin Total 0.9 mg/dL (0.2-1.0); Ferritin 140.7 ng/mL (8-388); Potassium 4.2 mmol/L (3.5-5.1); Protein, Total 7.1 g/dL (6.4-8.2)
[2021-06-26 12:28] LABS: Blood Morphology Comment NOTED (NOT SEEN); Platelet Estimate ADEQ; Polychromasia SLIGHT
[2021-06-26] MEDS: DAPTOmycin 700 MG in NA CHLORIDE 0.9% 100 ML IVPB SCH (15:31)
[2021-06-26 15:33] LABS: Urine Appearance CLEAR (Clear); Urine Bilirubin NEGATIVE (Negative); Urine Blood NEGATIVE (Negative); Urine Color YELLOW (Yellow); Urine Glucose NEGATIVE (Negative); Urine Protein NEGATIVE (Negative); Urine Specific Gravity 1.015 (1.005-1.030)
[2021-06-26 15:41] LABS: Urine Microscopic Reflex ORDER UMIC
[2021-06-26 16:06] LABS: Urine Bacteria <20 /HPF (<20); Urine RBC <5 /HPF (NONE SEEN)
[2021-06-26] MEDS: D50W 25 GM/50 ML SYRINGE IV PRN (17:27)
[2021-06-26] MEDS: Levofloxacin 750mg IV 750 MG/150 ML BAG IV SCH (20:20)
[2021-06-27] MEDS: IPRATROPIUM BROM 0.5MG/2.5ML NEB SCH ×4 (02:10→20:02)
[2021-06-27 05:07] LABS: Absolute Lymphocytes (CBC) 0.8 K/uL (0.7-4.9); Hematocrit 26.8 % (36.0-45.0); Lymphocytes % 7.1 % (15.3-44.8); MPV 8.6 fL (7.6-11.3); RBC Red Blood Cell Count 2.83 M/uL (3.86-4.86)
[2021-06-27 05:20] LABS: Albumin 3.2 g/dL (3.4-5.0); Bilirubin Total 0.9 mg/dL (0.2-1.0); Potassium 4.3 mmol/L (3.5-5.1); Protein, Total 7.1 g/dL (6.4-8.2)
[2021-06-27] MEDS: LEVOTHYROXINE SOD 0.1 MG TAB PO SCH (05:48)
[2021-06-27] MEDS: LEVOTHYROXINE SOD 0.075 MG TAB PO SCH (05:48)
--- NOTE | 2021-06-27 06:15 | P.PN ---
Date of Service: 06/27/21 Subjective: no acute events overnight feels she is improving daily, reports L knee aching no new complaints. generalized weakness ROS: 10 point review of systems otherwise negative Physical Exam General: Morbidly obese, AOx3 HEENT: Normal conjunctiva, sclera anicteric Respiratory: Nonlabored respirations on nasal cannula Cardiovascular: Regular rate and rhythm Gastrointestinal: Soft, nontender, nondistended Integumentary: No rash Problem List Acute appendicitis s/p lap appy Acute hypoxemic respiratory failure with hypercapnia Asthma exacerbation Coagulase-negative staph bacteremia h/o COVID pneumonia Obesity hypoventilation syndrome acute on chronic anemia, with blood loss (menstrual period) Head Lice s/p lap appendectomy and hernia repair. Prolonged intubation postoperatively, extubated 06/13, re-intubated on 06/14 AM; extubated again on 06/25. Intermittently required Levophed Pulmonology consulted Hypoxia likely secondary to obesity hypoventilation syndrome and pulm fibrosis from recent COVID infection Blood cultures on 06/23: Stapmiguel hominis, ID consulted, recommends treatment for bacteremia with daptomycin - given resistance and GENI of Vanc echo: normal EF Speech therapy consulted anemia - multifactorial - acute on chronic, with some blood loss - started menstrual period. mother reports patient has h/o heavy menses, required blood transfusion x2 in past due to them maintain Hgb > 8, 2u PRBC on 06/24 transfused and 06/25 - total 6 units. continue stool softeners PT/ST consulted Code: full Dispo: prolonged hospitalization, ok to transfer to floor needs ~6 more days of IV antibiotics Time spent managing patient's care: 35 minutes
--- NOTE | 2021-06-27 07:44 | RAD REPORT ---
EXAM DESCRIPTION: Rosario Single View06/27/2021 6:53 am CLINICAL HISTORY: Chest pain COMPARISON: June 26, 2021 FINDINGS: Partial resolution in right basilar consolidation No other change. Heart remains enlarged IMPRESSION: Partial resolution in right basilar consolidation probably combination of pneumonia and atelectasis
[2021-06-27] MEDS: dexAMETHasone 4 MG/ML VIAL IV SCH ×2 (08:04→20:50)
[2021-06-27] MEDS: FERROUS SULFATE 325 MG TAB PO SCH (08:04)
[2021-06-27] MEDS: VITAMIN D 1000 UNIT TAB PO SCH (08:04)
[2021-06-27] MEDS: DOCUSATE NA 100 MG CAP PO SCH ×2 (08:04→20:50)
[2021-06-27] MEDS: FAMOTIDINE 20 MG/2 ML VIAL IV SCH ×2 (08:06→20:52)
[2021-06-27] MEDS: MINERAL OIL 30 ML UCUP FT SCH (08:06)
[2021-06-27] MEDS: FLUCONAZOLE 200mg IVPB 400 MG/200 ML BAG IV SCH (08:13)
--- NOTE | 2021-06-27 10:57 | P.PN ---
Subjective Date of Service: 06/27/21 Chief Complaint: Respiratory failure Patient seen and examined at bedside, feeling well. Currently utilizing 2 L of oxygen via nasal cannula, off pressors. Baseline creatinine phosphokinase elevated at 449. Will obtain daily creatinine phosphokinase. Continue to monitor renal function and signs of rhabdo including myopathy/neuropathy. Review of Systems 10-point ROS is otherwise unremarkable Physical Examination - Vital Signs Temperature: 98.9 F Blood Pressure: 151/86 Pulse: 80 Respirations: 23 Pulse Ox (%): 94 - Studies Laboratory Last Values WBC 9.60 K/uL (4.3-10.9) 06/07/21 18:15 RBC 3.56 M/uL (3.86-4.86) L 06/07/21 18:15 Hgb 11.0 g/dL (12.0-15.0) L 06/07/21 18:15 Hct 33.3 % (36.0-45.0) L 06/07/21 18:15 MCV 93.4 fL (80-100) 06/07/21 18:15 MCH 30.8 pg (27.0-35.0) 06/07/21 18:15 MCHC 33.0 g/dL (32.0-36.0) 06/07/21 18:15 RDW 13.9 % (12.1-15.2) 06/07/21 18:15 Plt Count 184 K/uL (152-406) 06/07/21 18:15 MPV 9.5 fL (7.6-11.3) 06/07/21 18:15 Neutrophils % 75.9 % (41.7-73.7) H 06/07/21 18:15 Lymphocytes % 12.0 % (15.3-44.8) L 06/07/21 18:15 Monocytes % 6.3 % (3.3-12.3) 06/07/21 18:15 Eosinophils % 4.7 % (0-4.4) H 06/07/21 18:15 Basophils % 1.1 % (0-1.3) 06/07/21 18:15 Absolute Neutrophils 7.3 K/uL (1.8-8.0) 06/07/21 18:15 Absolute Lymphocytes 1.2 K/uL (0.7-4.9) 06/07/21 18:15 Absolute Monocytes 0.6 K/uL (0.1-1.3) 06/07/21 18:15 Absolute Eosinophils 0.5 K/uL (0-0.5) 06/07/21 18:15 Absolute Basophils 0.1 K/uL (0-0.5) 06/07/21 18:15 PT 11.6 SECONDS (9.5-12.5) 06/07/21 18:15 INR 1.01 06/07/21 18:15 Sodium 140 mmol/L (136-145) 06/07/21 18:15 Potassium 3.6 mmol/L (3.5-5.1) 06/07/21 18:15 Chloride 103 mmol/L (98-107) 06/07/21 18:15 Carbon Dioxide 32 mmol/L (21-32) 06/07/21 18:15 BUN 9 mg/dL (7-18) 06/07/21 18:15 Creatinine 1.09 mg/dL (0.55-1.3) 06/07/21 18:15 Estimated GFR 56 mL/min (=/>90) L 06/07/21 18:15 Glucose 92 mg/dL (74-106) 06/07/21 18:15 Calcium 9.2 mg/dL (8.5-10.1) 06/07/21 18:15 Magnesium 2.5 mg/dL (1.8-2.4) H 06/07/21 18:15 Total Bilirubin 0.5 mg/dL (0.2-1.0) 06/07/21 18:15 Direct Bilirubin 0.1 mg/dL (0-0.2) 06/07/21 18:15 AST 46 U/L (15-37) H 06/07/21 18:15 ALT 27 U/L (12-78) 06/07/21 18:15 Alkaline Phosphatase 53 U/L (45-117) 06/07/21 18:15 Troponin I High Sens 6.30 pg/mL (<58.9) 06/07/21 18:15 NT-Pro-B Natriuret Pep 11 pg/mL (<125) 06/07/21 18:15 Serum Total Protein 7.6 g/dL (6.4-8.2) 06/07/21 18:15 Albumin 3.8 g/dL (3.4-5.0) 06/07/21 18:15 Globulin 3.8 g/dL (2.3-3.5) H 06/07/21 18:15 Albumin/Globulin Ratio 1.0 (1.1-1.8) L 06/07/21 18:15 Lipase 76 U/L (73-393) 06/07/21 18:15 Urine pH 6.5 (5.0-7.0) 06/07/21 18:35 Ur Specific [place] 1.025 (1.005-1.030) 06/07/21 18:35 Glucose (UA)(Auto) Negative (Negative) 06/07/21 18:35 Urine Ketones Trace (Negative) H 06/07/21 18:35 Urine Blood Negative (Negative) 06/07/21 18:35 Urine Nitrite Negative (Negative) 06/07/21 18:35 Ur Leukocyte Esterase Negative (Negative) 06/07/21 18:35 Urine RBC <5 /HPF (NONE SEEN) 06/07/21 18:35 Urine WBC <5 /HPF (<5) 06/07/21 18:35 Ur Squamous Epith Cells 20-50 /HPF (NONE SEEN) H 06/07/21 18:35 Urine Bacteria >50 /HPF (<20) H 06/07/21 18:35 Urine Mucus Heavy /HPF (NONE SEEN) 06/07/21 18:35 Urine Culture Reflexed Not needed 06/07/21 18:35 Urine Total Protein 2+ (Negative) H 06/07/21 18:35 Ur Specific [place] (HCG) 1.025 (1.005-1.030) 06/07/21 18:43 Urine Test Neg (NEG) 06/07/21 18:43 Influenza Type A RNA Negative (NEGATIVE) 06/07/21 20:16 Influenza Type B RNA Negative (NEGATIVE) 06/07/21 20:16 SARS-CoV-2 RNA (RT-PCR) Negative (NEGATIVE) 06/07/21 20:16 Assessment And Plan - Plan Physical Exam: General: Alert, In no apparent distress, Obese HEENT: Atraumatic, Normocephalic Neck: Supple Respiratory: Other (Crackles/rales bilateral ) Cardiovascular: Other (pedal edema ) Capillary refill: <2 Seconds Gastrointestinal: Tenderness (diffuse) Musculoskeletal: No clubbing, No swelling, No contractures Integumentary: No rashes, No breakdown Urinary: Fitzgerald catheter Conclusions/Impression: Antibiotics: Daptomycin start urrent Levaquin start 06/24current Vancomycin start Assessment/plan Gram-positive bacteremia Blood cultures obtained on 06/23 grew staph epi in both aerobic bottles. Repeat cultures pending. Source of infection unclear--possible right arm PICC line that was placed 2 weeks ago--however site is clean and dry with no clinical signs of infection. Susceptibility showed resistance to vancomycin. Patient started on daptomycin on 06/26, recommend continuing for 7 to 10 days from negative blood culture report. Baseline creatinine phosphokinase elevated at 449. Will obtain daily creatinine phosphokinase. Continue to monitor renal function and signs of rhabdo including myopathy/neuropathy. Acute hypoxic respiratory failure Patient intubated on admission, extubated on 06/13 reintubated on 06/14, extubated on 06/25. Currently stable on 3 L of oxygen via nasal cannula. Most recent chest x-ray on 06/26 showed marked worsening of bilateral airspace disease. Could be sequela of Covid 19 infection in February versus pulmonary edema versus acute pneumonia. Recommend continuing Levaquin for 5 to 7 days. Pulmonology following. Patient currently receiving dexamethasone 2 mg every 12. Sputum culture growing normal respiratory elyssa. Anemia Continue to monitor H&H. Recommend transfusion if hemoglobin drops below 7.0 Morbid obesity Hypothyroidism Asthma -Medical management per primary team Plan of care discussed with Dr. Barksdale Thank you for consultation Physical exam:
[2021-06-27] MEDS: DAPTOmycin 700 MG in NA CHLORIDE 0.9% 100 ML IVPB SCH (14:02)
[2021-06-28] MEDS: IPRATROPIUM BROM 0.5MG/2.5ML NEB SCH ×3 (02:00→13:27)
[2021-06-28 05:08] LABS: Absolute Lymphocytes (CBC) 1.1 K/uL (0.7-4.9); Hematocrit 27.5 % (36.0-45.0); Lymphocytes % 9.6 % (15.3-44.8); MPV 8.4 fL (7.6-11.3)
[2021-06-28 05:30] LABS: Potassium 4.3 mmol/L (3.5-5.1)
[2021-06-28] MEDS: LEVOTHYROXINE SOD 0.1 MG TAB PO SCH (06:25)
[2021-06-28] MEDS: LEVOTHYROXINE SOD 0.075 MG TAB PO SCH (06:25)
--- NOTE | 2021-06-28 06:26 | P.PN ---
Date of Service: 06/28/21 Subjective: No significant acute events overnight. Patient reportedly refusing certain treatments, at times refuses to put her oxygen back on Denies any new symptoms or complaints ROS: 10 point review of systems otherwise negative Physical Exam General: Morbidly obese, AOx3 HEENT: Normal conjunctiva, sclera anicteric Respiratory: Nonlabored respirations on nasal cannula Cardiovascular: Regular rate and rhythm Gastrointestinal: Soft, nontender, nondistended MSK: mild pain with ROM of L knee Integumentary: No rash Problem List Acute appendicitis s/p lap appy Acute hypoxemic respiratory failure with hypercapnia Asthma exacerbation Coagulase-negative staph bacteremia h/o COVID pneumonia Obesity hypoventilation syndrome acute on chronic anemia, with blood loss (menstrual period) Head Lice s/p lap appendectomy and hernia repair. Prolonged intubation postoperatively, extubated 06/13, re-intubated on 06/14 AM; extubated again on 06/25. 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 mother reports patient has h/o heavy menses, required blood transfusion x2 in past due to them maintain Hgb > 8, 2u PRBC on 06/24 transfused and 06/25 - total 6 units. continue stool softeners Physical therapy to reevaluate that she is improved Transferred to medical floor on 06/27 Code: full Dispo: prolonged hospitalization, anticipate DC home once antibiotics are complete needs ~5 more days of IV antibiotics Time spent managing patient's care: 35 minutes
[2021-06-28] MEDS: dexAMETHasone 4 MG/ML VIAL IV SCH ×2 (08:41→20:39)
[2021-06-28] MEDS: FAMOTIDINE 20 MG/2 ML VIAL IV SCH ×2 (08:41→20:39)
[2021-06-28] MEDS: DOCUSATE NA 100 MG CAP PO SCH ×3 (08:42→21:00)
[2021-06-28] MEDS: FERROUS SULFATE 325 MG TAB PO SCH (08:42)
[2021-06-28] MEDS: VITAMIN D 1000 UNIT TAB PO SCH (08:42)
[2021-06-28] MEDS: MINERAL OIL 30 ML UCUP FT SCH (08:42)
--- NOTE | 2021-06-28 13:06 | P.PN ---
Subjective Date of Service: 06/28/21 Chief Complaint: Respiratory failure Patient seen and examined at bedside, feeling well. Transferred to floor. Review of Systems 10-point ROS is otherwise unremarkable Physical Examination - Vital Signs Temperature: 96.9 F Blood Pressure: 115/61 Pulse: 71 Respirations: 23 Pulse Ox (%): 95 - Studies Laboratory Last Values WBC 9.60 K/uL (4.3-10.9) 06/07/21 18:15 RBC 3.56 M/uL (3.86-4.86) L 06/07/21 18:15 Hgb 11.0 g/dL (12.0-15.0) L 06/07/21 18:15 Hct 33.3 % (36.0-45.0) L 06/07/21 18:15 MCV 93.4 fL (80-100) 06/07/21 18:15 MCH 30.8 pg (27.0-35.0) 06/07/21 18:15 MCHC 33.0 g/dL (32.0-36.0) 06/07/21 18:15 RDW 13.9 % (12.1-15.2) 06/07/21 18:15 Plt Count 184 K/uL (152-406) 06/07/21 18:15 MPV 9.5 fL (7.6-11.3) 06/07/21 18:15 Neutrophils % 75.9 % (41.7-73.7) H 06/07/21 18:15 Lymphocytes % 12.0 % (15.3-44.8) L 06/07/21 18:15 Monocytes % 6.3 % (3.3-12.3) 06/07/21 18:15 Eosinophils % 4.7 % (0-4.4) H 06/07/21 18:15 Basophils % 1.1 % (0-1.3) 06/07/21 18:15 Absolute Neutrophils 7.3 K/uL (1.8-8.0) 06/07/21 18:15 Absolute Lymphocytes 1.2 K/uL (0.7-4.9) 06/07/21 18:15 Absolute Monocytes 0.6 K/uL (0.1-1.3) 06/07/21 18:15 Absolute Eosinophils 0.5 K/uL (0-0.5) 06/07/21 18:15 Absolute Basophils 0.1 K/uL (0-0.5) 06/07/21 18:15 PT 11.6 SECONDS (9.5-12.5) 06/07/21 18:15 INR 1.01 06/07/21 18:15 Sodium 140 mmol/L (136-145) 06/07/21 18:15 Potassium 3.6 mmol/L (3.5-5.1) 06/07/21 18:15 Chloride 103 mmol/L (98-107) 06/07/21 18:15 Carbon Dioxide 32 mmol/L (21-32) 06/07/21 18:15 BUN 9 mg/dL (7-18) 06/07/21 18:15 Creatinine 1.09 mg/dL (0.55-1.3) 06/07/21 18:15 Estimated GFR 56 mL/min (=/>90) L 06/07/21 18:15 Glucose 92 mg/dL (74-106) 06/07/21 18:15 Calcium 9.2 mg/dL (8.5-10.1) 06/07/21 18:15 Magnesium 2.5 mg/dL (1.8-2.4) H 06/07/21 18:15 Total Bilirubin 0.5 mg/dL (0.2-1.0) 06/07/21 18:15 Direct Bilirubin 0.1 mg/dL (0-0.2) 06/07/21 18:15 AST 46 U/L (15-37) H 06/07/21 18:15 ALT 27 U/L (12-78) 06/07/21 18:15 Alkaline Phosphatase 53 U/L (45-117) 06/07/21 18:15 Troponin I High Sens 6.30 pg/mL (<58.9) 06/07/21 18:15 NT-Pro-B Natriuret Pep 11 pg/mL (<125) 06/07/21 18:15 Serum Total Protein 7.6 g/dL (6.4-8.2) 06/07/21 18:15 Albumin 3.8 g/dL (3.4-5.0) 06/07/21 18:15 Globulin 3.8 g/dL (2.3-3.5) H 06/07/21 18:15 Albumin/Globulin Ratio 1.0 (1.1-1.8) L 06/07/21 18:15 Lipase 76 U/L (73-393) 06/07/21 18:15 Urine pH 6.5 (5.0-7.0) 06/07/21 18:35 Ur Specific [place] 1.025 (1.005-1.030) 06/07/21 18:35 Glucose (UA)(Auto) Negative (Negative) 06/07/21 18:35 Urine Ketones Trace (Negative) H 06/07/21 18:35 Urine Blood Negative (Negative) 06/07/21 18:35 Urine Nitrite Negative (Negative) 06/07/21 18:35 Ur Leukocyte Esterase Negative (Negative) 06/07/21 18:35 Urine RBC <5 /HPF (NONE SEEN) 06/07/21 18:35 Urine WBC <5 /HPF (<5) 06/07/21 18:35 Ur Squamous Epith Cells 20-50 /HPF (NONE SEEN) H 06/07/21 18:35 Urine Bacteria >50 /HPF (<20) H 06/07/21 18:35 Urine Mucus Heavy /HPF (NONE SEEN) 06/07/21 18:35 Urine Culture Reflexed Not needed 06/07/21 18:35 Urine Total Protein 2+ (Negative) H 06/07/21 18:35 Ur Specific [place] (HCG) 1.025 (1.005-1.030) 06/07/21 18:43 Urine Test Neg (NEG) 06/07/21 18:43 Influenza Type A RNA Negative (NEGATIVE) 06/07/21 20:16 Influenza Type B RNA Negative (NEGATIVE) 06/07/21 20:16 SARS-CoV-2 RNA (RT-PCR) Negative (NEGATIVE) 06/07/21 20:16 Assessment And Plan - Plan Physical Exam: General: Alert, In no apparent distress, Obese HEENT: Atraumatic, Normocephalic Neck: Supple Respiratory: Other (Crackles/rales bilateral ) Cardiovascular: Other (pedal edema ) Capillary refill: <2 Seconds Gastrointestinal: Tenderness (diffuse) Musculoskeletal: No clubbing, No swelling, No contractures Integumentary: No rashes, No breakdown Urinary: Fitzgerald catheter Conclusions/Impression: Antibiotics: Daptomycin start 2/2current Levaquin start 06/24current Vancomycin start Assessment/plan Gram-positive bacteremia Blood cultures obtained on 06/23 grew staph epi in both aerobic bottles. Repeat cultures negative on 06/26. Source of infection unclear--possible right arm PICC line that was placed 2 weeks ago--however site is clean and dry with no clinical signs of infection. Susceptibility showed resistance to vancomycin. Patient started on daptomycin on 06/26, recommend continuing for 7 to 10 days from negative blood culture report. Tentative antibiotic completion date of 07/03. Baseline creatinine phosphokinase elevated at 449. Repeat creatinine kinase 343. Will obtain daily creatinine phosphokinase. Continue to monitor renal function and signs of rhabdo including myopathy/neuropathy. Acute hypoxic respiratory failure Patient intubated on admission, extubated on 06/13 reintubated on 06/14, extubated on 06/25. Currently stable on 3 L of oxygen via nasal cannula. Most recent chest x-ray on 06/26 showed marked worsening of bilateral airspace disease. Could be sequela of Covid 19 infection in February versus pulmonary edema versus acute pneumonia. Recommend continuing Levaquin for 5 to 7 days. Pulmonology following. Patient currently receiving dexamethasone 2 mg every 12. Sputum culture growing normal respiratory elyssa. Anemia Continue to monitor H&H. Recommend transfusion if hemoglobin drops below 7.0 Morbid obesity Hypothyroidism Asthma -Medical management per primary team Plan of care discussed with Dr. Barksdale Thank you for consultation Physical exam:
--- NOTE | 2021-06-28 13:08 | P.CNS ---
Date of Consult: 06/25/21 Consultation was placed in the computer system on June 24. I was not notified of the consultation at that time. When logging into the [facility] system on June 25, the patient appeared on my patient list and I spoke with Jewels, the patient's attending nurse. We discussed the patient including her intubated status. Jewels indicated a potential plan for the patient to be extubated within the next 24 hours but that if reintubation was required, a tracheostomy placement would be indicated. We discussed that Dr. Aaron is sales operations consultant this week for the ENT service including the ER and the office. I requested that Jewels confer with the primary team and contact Dr. Aaron if clinically appropriate and if a tracheostomy tube placement and formal ENT consult were required. In chart review performed on June 28, it is noted the patient is now on the second floor, successfully extubated and no additional ENT intervention appears to be necessary at this time. I remain available for any questions or further concerns and I am happy to evaluate the patient in person if deemed necessary by the primary team.
[2021-06-28] MEDS: DAPTOmycin 700 MG in NA CHLORIDE 0.9% 100 ML IVPB SCH (14:00)
[2021-06-28] MEDS ORDERED: IPRATROPIUM BROM 0.5MG/2.5ML NEB PRN (17:20)
[2021-06-28] MEDS: ENSURE HIGH PROTEIN 237 ML CAN PO SCH (20:40)
[2021-06-29] MEDS: LEVOTHYROXINE SOD 0.075 MG TAB PO SCH (06:01)
[2021-06-29] MEDS: LEVOTHYROXINE SOD 0.1 MG TAB PO SCH (06:01)
[2021-06-29] MEDS: ACETAMINOPHEN 500 MG TAB PO PRN (06:05)
--- NOTE | 2021-06-29 06:25 | P.PN ---
Date of Service: 06/29/21 Subjective: Reports some stomach discomfort approximately 1 hour after eating. Ongoing issue for many months, slightly worse last few days Breathing comfortably on 2 L nasal cannula Afebrile ROS: 10 point review of systems otherwise negative Physical Exam General: Morbidly obese, AOx3 HEENT: Normal conjunctiva, sclera anicteric Respiratory: Nonlabored respirations on nasal cannula Cardiovascular: Regular rate and rhythm Gastrointestinal: Soft, mild discomfort epigastrium, nondistended MSK: mild pain with ROM of L knee Integumentary: No rash Problem List Acute appendicitis s/p lap appendectomy Acute hypoxemic respiratory failure with hypercapnia, resolved Asthma exacerbation Coagulase-negative staph bacteremia h/o COVID pneumonia Obesity hypoventilation syndrome acute on chronic anemia, with blood loss (menstrual period) Head Lice s/p lap appendectomy and hernia repair. Prolonged intubation postoperatively, extubated 06/13, re-intubated on 06/14 AM; extubated again on 06/25. 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 mother reports patient has h/o heavy menses, required blood transfusion x2 in past due to them maintain Hgb > 8, 2u PRBC on 06/24 transfused and 06/25 - total 6 units. continue stool softeners Physical therapy to reevaluate now that she is improved Transferred to medical floor on 06/27 We will change Pepcid to Protonix, add Carafate. Suspect gastritis/possible gastric ulcer Code: full Dispo: prolonged hospitalization, anticipate DC home once antibiotics are complete needs ~4 more days of IV antibiotics Time spent managing patient's care: 35 minutes
[2021-06-29] MEDS: MINERAL OIL 30 ML UCUP FT SCH (09:00)
[2021-06-29] MEDS: ENSURE HIGH PROTEIN 237 ML CAN PO SCH ×2 (09:00→20:52)
[2021-06-29] MEDS: FAMOTIDINE 20 MG/2 ML VIAL IV SCH (09:17)
[2021-06-29] MEDS: FERROUS SULFATE 325 MG TAB PO SCH (09:17)
[2021-06-29] MEDS: dexAMETHasone 4 MG/ML VIAL IV SCH (09:17)
[2021-06-29] MEDS: DOCUSATE NA 100 MG CAP PO SCH ×2 (09:17→20:39)
[2021-06-29] MEDS: VITAMIN D 1000 UNIT TAB PO SCH (09:17)
[2021-06-29] MEDS: DAPTOmycin 700 MG in NA CHLORIDE 0.9% 100 ML IVPB SCH (13:59)
[2021-06-29] MEDS: SUCRALFATE 1GM/10ML UCUP PO SCH ×2 (16:10→20:51)
[2021-06-29] MEDS: PANTOPRAZOLE 40MG TABLET PO SCH (16:11)
[2021-06-29] MEDS: dexAMETHasone 4 MG TAB PO SCH (20:52)
[2021-06-30] MEDS: LEVOTHYROXINE SOD 0.1 MG TAB PO SCH (06:07)
[2021-06-30] MEDS: LEVOTHYROXINE SOD 0.075 MG TAB PO SCH (06:07)
--- NOTE | 2021-06-30 06:18 | P.PN ---
Date of Service: 06/30/21 Subjective: Improving, no new complaints Physical therapy Anxious to get back home to spend time with her kids ROS: 10 point review of systems otherwise negative Physical Exam General: Morbidly obese, AOx3 HEENT: Normal conjunctiva, sclera anicteric Respiratory: Nonlabored respirations on room air Cardiovascular: Regular rate and rhythm Gastrointestinal: Soft, mild discomfort epigastrium, nondistended Integumentary: No rash Neuro: Normal affect/speech, moves all extremities Problem List Acute appendicitis s/p lap appendectomy Acute hypoxemic respiratory failure with hypercapnia, resolved Asthma exacerbation Coagulase-negative staph bacteremia h/o COVID pneumonia Obesity hypoventilation syndrome acute on chronic anemia, with blood loss (menstrual period) Head Lice s/p lap appendectomy and hernia repair. Prolonged intubation postoperatively, extubated 06/13, re-intubated on 06/14 AM; extubated again on 06/25. 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 mother reports patient has h/o heavy menses, required blood transfusion x2 in past due to them maintain Hgb > 8, 2u PRBC on 06/24 transfused and 06/25 - total 6 units. continue stool softeners Physical therapy Transferred to medical floor on 06/27 changed Pepcid to Protonix, add Carafate on 06/29. Suspect gastritis/possible gastric ulcer Code: full Dispo: prolonged hospitalization, anticipate DC home once antibiotics are complete needs ~3 more days of IV antibiotics Time spent managing patient's care: 35 minutes
[2021-06-30 06:54] LABS: Absolute Lymphocytes (CBC) 0.9 K/uL (0.7-4.9); Hematocrit 28.5 % (36.0-45.0); Lymphocytes % 8.3 % (15.3-44.8); MPV 8.2 fL (7.6-11.3); RBC Red Blood Cell Count 2.99 M/uL (3.86-4.86)
[2021-06-30 07:36] LABS: Potassium 4.1 mmol/L (3.5-5.1)
[2021-06-30 07:58] LABS: Platelet Estimate ADEQ
[2021-06-30 07:59] LABS: Blood Morphology Comment NOTED (NOT SEEN); Polychromasia SLIGHT; Stomatocytes 2+
[2021-06-30] MEDS: FERROUS SULFATE 325 MG TAB PO SCH (08:56)
[2021-06-30] MEDS: PANTOPRAZOLE 40MG TABLET PO SCH ×2 (08:56→16:11)
[2021-06-30] MEDS: VITAMIN D 1000 UNIT TAB PO SCH (08:56)
[2021-06-30] MEDS: SUCRALFATE 1GM/10ML UCUP PO SCH ×4 (08:56→21:14)
[2021-06-30] MEDS: DOCUSATE NA 100 MG CAP PO SCH ×2 (08:56→21:14)
[2021-06-30] MEDS: dexAMETHasone 4 MG TAB PO SCH (08:57)
[2021-06-30] MEDS: ENSURE HIGH PROTEIN 237 ML CAN PO SCH ×2 (08:57→21:15)
[2021-06-30] MEDS: ACETAMINOPHEN 500 MG TAB PO PRN (14:17)
[2021-06-30] MEDS: DAPTOmycin 700 MG in NA CHLORIDE 0.9% 100 ML IVPB SCH (14:48)
[2021-07-01] MEDS: LEVOTHYROXINE SOD 0.075 MG TAB PO SCH (05:25)
[2021-07-01] MEDS: ACETAMINOPHEN 500 MG TAB PO PRN ×2 (05:25→21:26)
[2021-07-01] MEDS: LEVOTHYROXINE SOD 0.1 MG TAB PO SCH (05:25)
--- NOTE | 2021-07-01 06:14 | P.PN ---
Date of Service: 07/01/21 Subjective: Improving daily. Oxygen saturations at x188-99% on room air, refusing to wear oxygen Versed she is still in the hospital, she misses her children ROS: 10 point review of systems otherwise negative Physical Exam General: Morbidly obese, AOx3 HEENT: Normal conjunctiva, sclera anicteric Respiratory: Nonlabored respirations on room air, diminished at bases bilaterally Cardiovascular: Regular rate and rhythm Gastrointestinal: Soft, mild discomfort epigastrium, nondistended Integumentary: No rash Neuro: Normal affect/speech, moves all extremities Problem List Acute appendicitis s/p lap appendectomy Acute hypoxemic respiratory failure with hypercapnia, resolved Asthma exacerbation Coagulase-negative staph bacteremia h/o COVID pneumonia Obesity hypoventilation syndrome acute on chronic anemia, with blood loss (menstrual period) Head Lice s/p lap appendectomy and hernia repair. Prolonged intubation postoperatively, extubated 06/13, re-intubated on 06/14 AM; extubated again on 06/25. 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 mother reports patient has h/o heavy menses, required blood transfusion x2 in past due to them maintain Hgb > 8, 2u PRBC on 06/24 transfused and 06/25 - total 6 units. continue stool softeners Physical therapy Transferred to medical floor on 06/27 changed Pepcid to Protonix, add Carafate on 06/29. Suspect gastritis/possible gastric ulcer Code: full Dispo: prolonged hospitalization, DC home once antibiotics are complete last dose tomorrow Time spent managing patient's care: 35 minutes
[2021-07-01] MEDS: dexAMETHasone 4 MG TAB PO SCH (08:05)
[2021-07-01] MEDS: DOCUSATE NA 100 MG CAP PO SCH ×2 (08:05→21:21)
[2021-07-01] MEDS: PANTOPRAZOLE 40MG TABLET PO SCH ×2 (08:05→16:36)
[2021-07-01] MEDS: VITAMIN D 1000 UNIT TAB PO SCH (08:05)
[2021-07-01] MEDS: ENSURE HIGH PROTEIN 237 ML CAN PO SCH ×2 (08:05→21:00)
[2021-07-01] MEDS: FERROUS SULFATE 325 MG TAB PO SCH (08:05)
[2021-07-01] MEDS: SUCRALFATE 1GM/10ML UCUP PO SCH ×4 (08:05→21:21)
[2021-07-01] MEDS: DAPTOmycin 700 MG in NA CHLORIDE 0.9% 100 ML IVPB SCH (14:54)
--- NOTE | 2021-07-01 16:49 | P.PN ---
Subjective Date of Service: 07/01/21 Chief Complaint: Respiratory failure Patient seen and examined at bedside, wanting to go home. Review of Systems 10-point ROS is otherwise unremarkable Physical Examination - Vital Signs Temperature: 97.4 F Blood Pressure: 129/72 Pulse: 63 Respirations: 20 Pulse Ox (%): 88 - Studies Laboratory Last Values WBC 9.60 K/uL (4.3-10.9) 06/07/21 18:15 RBC 3.56 M/uL (3.86-4.86) L 06/07/21 18:15 Hgb 11.0 g/dL (12.0-15.0) L 06/07/21 18:15 Hct 33.3 % (36.0-45.0) L 06/07/21 18:15 MCV 93.4 fL (80-100) 06/07/21 18:15 MCH 30.8 pg (27.0-35.0) 06/07/21 18:15 MCHC 33.0 g/dL (32.0-36.0) 06/07/21 18:15 RDW 13.9 % (12.1-15.2) 06/07/21 18:15 Plt Count 184 K/uL (152-406) 06/07/21 18:15 MPV 9.5 fL (7.6-11.3) 06/07/21 18:15 Neutrophils % 75.9 % (41.7-73.7) H 06/07/21 18:15 Lymphocytes % 12.0 % (15.3-44.8) L 06/07/21 18:15 Monocytes % 6.3 % (3.3-12.3) 06/07/21 18:15 Eosinophils % 4.7 % (0-4.4) H 06/07/21 18:15 Basophils % 1.1 % (0-1.3) 06/07/21 18:15 Absolute Neutrophils 7.3 K/uL (1.8-8.0) 06/07/21 18:15 Absolute Lymphocytes 1.2 K/uL (0.7-4.9) 06/07/21 18:15 Absolute Monocytes 0.6 K/uL (0.1-1.3) 06/07/21 18:15 Absolute Eosinophils 0.5 K/uL (0-0.5) 06/07/21 18:15 Absolute Basophils 0.1 K/uL (0-0.5) 06/07/21 18:15 PT 11.6 SECONDS (9.5-12.5) 06/07/21 18:15 INR 1.01 06/07/21 18:15 Sodium 140 mmol/L (136-145) 06/07/21 18:15 Potassium 3.6 mmol/L (3.5-5.1) 06/07/21 18:15 Chloride 103 mmol/L (98-107) 06/07/21 18:15 Carbon Dioxide 32 mmol/L (21-32) 06/07/21 18:15 BUN 9 mg/dL (7-18) 06/07/21 18:15 Creatinine 1.09 mg/dL (0.55-1.3) 06/07/21 18:15 Estimated GFR 56 mL/min (=/>90) L 06/07/21 18:15 Glucose 92 mg/dL (74-106) 06/07/21 18:15 Calcium 9.2 mg/dL (8.5-10.1) 06/07/21 18:15 Magnesium 2.5 mg/dL (1.8-2.4) H 06/07/21 18:15 Total Bilirubin 0.5 mg/dL (0.2-1.0) 06/07/21 18:15 Direct Bilirubin 0.1 mg/dL (0-0.2) 06/07/21 18:15 AST 46 U/L (15-37) H 06/07/21 18:15 ALT 27 U/L (12-78) 06/07/21 18:15 Alkaline Phosphatase 53 U/L (45-117) 06/07/21 18:15 Troponin I High Sens 6.30 pg/mL (<58.9) 06/07/21 18:15 NT-Pro-B Natriuret Pep 11 pg/mL (<125) 06/07/21 18:15 Serum Total Protein 7.6 g/dL (6.4-8.2) 06/07/21 18:15 Albumin 3.8 g/dL (3.4-5.0) 06/07/21 18:15 Globulin 3.8 g/dL (2.3-3.5) H 06/07/21 18:15 Albumin/Globulin Ratio 1.0 (1.1-1.8) L 06/07/21 18:15 Lipase 76 U/L (73-393) 06/07/21 18:15 Urine pH 6.5 (5.0-7.0) 06/07/21 18:35 Ur Specific [place] 1.025 (1.005-1.030) 06/07/21 18:35 Glucose (UA)(Auto) Negative (Negative) 06/07/21 18:35 Urine Ketones Trace (Negative) H 06/07/21 18:35 Urine Blood Negative (Negative) 06/07/21 18:35 Urine Nitrite Negative (Negative) 06/07/21 18:35 Ur Leukocyte Esterase Negative (Negative) 06/07/21 18:35 Urine RBC <5 /HPF (NONE SEEN) 06/07/21 18:35 Urine WBC <5 /HPF (<5) 06/07/21 18:35 Ur Squamous Epith Cells 20-50 /HPF (NONE SEEN) H 06/07/21 18:35 Urine Bacteria >50 /HPF (<20) H 06/07/21 18:35 Urine Mucus Heavy /HPF (NONE SEEN) 06/07/21 18:35 Urine Culture Reflexed Not needed 06/07/21 18:35 Urine Total Protein 2+ (Negative) H 06/07/21 18:35 Ur Specific [place] (HCG) 1.025 (1.005-1.030) 06/07/21 18:43 Urine Test Neg (NEG) 06/07/21 18:43 Influenza Type A RNA Negative (NEGATIVE) 06/07/21 20:16 Influenza Type B RNA Negative (NEGATIVE) 06/07/21 20:16 SARS-CoV-2 RNA (RT-PCR) Negative (NEGATIVE) 06/07/21 20:16 Assessment And Plan - Plan Physical Exam: General: Alert, In no apparent distress, Obese HEENT: Atraumatic, Normocephalic Neck: Supple Respiratory: Other (Crackles/rales bilateral ) Cardiovascular: Other (pedal edema ) Capillary refill: <2 Seconds Gastrointestinal: Tenderness (diffuse) Musculoskeletal: No clubbing, No swelling, No contractures Integumentary: No rashes, No breakdown Urinary: Fitzgerald catheter Conclusions/Impression: Antibiotics: Daptomycin start /2current Levaquin start Vancomycin start Assessment/plan Gram-positive bacteremia Blood cultures obtained on 06/23 grew staph epi in both aerobic bottles. Repeat cultures negative on 06/26. Source of infection unclear--possible right arm PICC line that was placed 2 weeks ago--however site is clean and dry with no clinical signs of infection. Susceptibility showed resistance to vancomycin. Patient started on daptomycin on 06/26, recommend continuing for 7 to 10 days from negative blood culture report. Tentative antibiotic completion date of 07/02. Baseline creatinine phosphokinase elevated at 449. Repeat creatinine kinase 343. Will obtain daily creatinine phosphokinase. Continue to monitor renal function and signs of rhabdo including myopathy/neuropathy. Acute hypoxic respiratory failure Patient intubated on admission, extubated on 06/13 reintubated on 06/14, extubated on 06/25. Currently stable on 3 L of oxygen via nasal cannula. Most recent chest x-ray on 06/26 showed marked worsening of bilateral airspace disease. Could be sequela of Covid 19 infection in February versus pulmonary edema versus acute pneumonia. Completed course of levaquin. Pulmonology following. Patient currently receiving dexamethasone 2 mg daily. Sputum culture growing normal respiratory elyssa. Anemia Continue to monitor H&H. Recommend transfusion if hemoglobin drops below 7.0 Morbid obesity Hypothyroidism Asthma -Medical management per primary team Plan of care discussed with Dr. Barksdale Thank you for consultation Physical exam:
[2021-07-02] MEDS: LEVOTHYROXINE SOD 0.075 MG TAB PO SCH (05:37)
[2021-07-02] MEDS: LEVOTHYROXINE SOD 0.1 MG TAB PO SCH (05:37)
[2021-07-02] MEDS: ACETAMINOPHEN 500 MG TAB PO PRN (05:37)
[2021-07-02] MEDS: SUCRALFATE 1GM/10ML UCUP PO SCH ×3 (08:44→16:56)
[2021-07-02] MEDS: FERROUS SULFATE 325 MG TAB PO SCH (08:45)
[2021-07-02] MEDS: PANTOPRAZOLE 40MG TABLET PO SCH ×2 (08:45→16:56)
[2021-07-02] MEDS: VITAMIN D 1000 UNIT TAB PO SCH (08:45)
[2021-07-02] MEDS: DOCUSATE NA 100 MG CAP PO SCH (08:46)
[2021-07-02] MEDS: ENSURE HIGH PROTEIN 237 ML CAN PO SCH (08:49)
[2021-07-02] MEDS: dexAMETHasone 4 MG TAB PO SCH (08:49)
--- NOTE | 2021-07-02 09:07 | P.DS ---
Admission Date: 06/08/21 Discharge Date: 07/02/21 Disposition: ROUTINE DISCHARGE Discharge Condition: FAIR Reason for Admission: Respiratory failure - Problems (1) Acute respiratory failure with hypoxia and hypercapnia Current Visit: Yes Status: Acute (2) Abdominal pain Current Visit: Yes Status: Acute Qualifiers: Abdominal location: left upper quadrant Qualified Code(s): R10.12 - Left upper quadrant pain (3) Asthma exacerbation Current Visit: Yes Status: Acute Qualifiers: Asthma severity: moderate Asthma persistence: unspecified Qualified Code(s): J45.901 - Unspecified asthma with (acute) exacerbation (4) Obesity hypoventilation syndrome Current Visit: Yes Status: Acute (5) Acute appendicitis Current Visit: Yes Status: Acute Brief History of Present Illness: Ms. Knox is a 36 yo F with history of hypothyroidism and asthma who presents with 10/10 LUQ abdominal pain. She reported she felt being 'kicked in the stomach.' She also reported anorexia and nausea. Denied fever, vomiting, constipation or diarrhea. She was hypoxic into the 80s upon arrival, and was saturating in the 90s on 2L NC. CXR IMPRESSION: The lungs appear mildly hazy which may indicate mild interstitial pulmonary edema or pneumonia CT IMPRESSION: Tiny nonobstructing left renal calculi 4.1 centimeter right ovarian cyst without significant free fluid. Borderline enlargement of the appendix of uncertain significance. If the patient has clinical symptoms to suggest appendicitis then a CT scan with IV and oral contrast with opacification of the terminal ileum/cecum would be recommended for further evaluation. Patient hospitalized for further management. Hospital Course: Problem List Acute appendicitis s/p lap appendectomy Acute hypoxemic respiratory failure with hypercapnia, resolved Asthma exacerbation Coagulase-negative staph bacteremia h/o COVID pneumonia Obesity hypoventilation syndrome acute on chronic anemia, with blood loss (menstrual period) Head Lice Hospital course Patient seen by general surgery Dr. Kwon. Repeat CT abdomen and pelvis increased suggested acute appendicitis s/p lap appendectomy and hernia repair after which patient could not be extubated due to profound hypoxia. Patient was sent to the ICU where she had prolonged intubation postoperatively. She was extubated 06/13, re-intubated on 06/14 AM; extubated again on 06/25. Intermittently required Levophed for hypotension Pulmonology-Dr. Lugo assisted with management. 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 Blood cultures on 06/23: Celina kaiser, ID consulted, who recommended treatment for bacteremia with daptomycin - given resistance and GENI of Vanc. Patient completed IV antibiotics for the bacteremia infection. echo: normal EF anemia - multifactorial - acute on chronic, with some blood loss - started menstrual period. mother reports patient has h/o heavy menses. Patient transfused a total 6 units PRBC for anemia. Suspected gastritis versus gastric ulcer. Patient was placed on Protonix and Carafate. Patient currently stable, back to baseline with clear mental status. She has been weaned off oxygen and tolerating room air. She has clinically improved and deemed stable for discharge. Vital Signs/Physical Exam: Temp Pulse Resp BP Pulse Ox 97.2 F 65 18 135/68 90 L 07/02/21 04:00 07/02/21 04:00 07/02/21 04:00 07/02/21 04:00 07/02/21 04:00 General: Alert, In no apparent distress, Oriented x3, Obese HEENT: Mucous membr. moist/pink Neck: JVD not distended Respiratory: Diminished (Bilateral) Cardiovascular: No edema, Regular rate/rhythm, Normal S1 S2 Gastrointestinal: Soft and benign, Non-distended Musculoskeletal: No swelling Integumentary: No rashes Neurological: Normal strength at 5/5 x4 extr Laboratory Data at Discharge: WBC 10.30 K/uL (4.3-10.9) 06/30/21 06:37 Hgb 9.5 g/dL (12.0-15.0) L 06/30/21 06:37 Hct 28.5 % (36.0-45.0) L 06/30/21 06:37 Plt Count 265 K/uL (152-406) 06/30/21 06:37 PT 11.6 SECONDS (9.5-12.5) 06/07/21 18:15 INR 1.01 06/07/21 18:15 Sodium 142 mmol/L (136-145) 06/30/21 06:37 Potassium 4.1 mmol/L (3.5-5.1) 06/30/21 06:37 BUN 28 mg/dL (7-18) H 06/30/21 06:37 Creatinine 0.77 mg/dL (0.55-1.3) 06/30/21 06:37 Glucose 104 mg/dL (74-106) 06/30/21 06:37 Phosphorus 3.2 mg/dL (2.5-4.9) 06/24/21 05:00 Magnesium 2.6 06/24/21 05:00 Total Bilirubin 0.9 mg/dL (0.2-1.0) 06/27/21 04:37 AST 24 U/L (15-37) 06/27/21 04:37 ALT 71 U/L (12-78) 06/27/21 04:37 Alkaline Phosphatase 50 U/L (45-117) 06/27/21 04:37 Triglycerides 127 mg/dL (<150) 06/09/21 06:00 Cholesterol 428 mg/dL (<200) H 06/09/21 06:00 HDL Cholesterol 50 mg/dL (40-60) 06/09/21 06:00 Cholesterol/HDL Ratio 8.56 06/09/21 06:00 Lipase 76 U/L (73-393) 06/07/21 18:15 Home Medications: Cholecalciferol (Vitamin D3) [Vitamin D 1000 Iu Tab*] 4,000 unit PO DAILY 30 Days tab 08/10/20 Zinc Sulfate [Zinc Sulfate*] 220 mg PO DAILY 30 Days cap 08/10/20 Albuterol Sulfate [Proair Hfa] 2 puff IH Q4H PRN 06/08/21 Ascorbic Acid [Vitamin C*] 500 mg PO DAILY 06/08/21 Ferrous Sulfate [Iron] 325 mg PO DAILY 06/08/21 Albuterol Neb [Proventil 0.083% Neb Soln] 2.5 mg NEB [id number] PRN #120 amp 07/02/21 Budesonide [Pulmicort] 1 amp NEB BID #60 amp 07/02/21 Docusate [Colace Cap*] 100 mg PO BID #60 cap 07/02/21 Ipratropium Neb [Atrovent*] 0.5 mg NEB [id number] PRN #120 amp 07/02/21 Levothyroxine Sodium [Synthroid] 175 mcg PO DAILY #30 tablet 07/02/21 Pantoprazole [Protonix Tab*] 40 mg PO BIDAC #60 tab 07/02/21 Sucralfate [Carafate*] 10 ml PO ACHS #420 ml 07/02/21 dexAMETHasone [Decadron*] 2 mg PO DAILY #5 tab 07/02/21 New Medications: Albuterol Neb [Proventil 0.083% Neb Soln] 2.5 mg NEB [id number] PRN #120 amp PRN Reason: Shortness Of Breath Ipratropium Neb [Atrovent*] 0.5 mg NEB [id number] PRN #120 amp PRN Reason: Shortness Of Breath Sucralfate [Carafate*] 10 ml PO ACHS #420 ml Docusate [Colace Cap*] 100 mg PO BID #60 cap dexAMETHasone [Decadron*] 2 mg PO DAILY #5 tab Pantoprazole [Protonix Tab*] 40 mg PO BIDAC #60 tab Budesonide [Pulmicort] 1 amp NEB BID #60 amp Levothyroxine Sodium [Synthroid] 175 mcg PO DAILY #30 tablet Followup: NONE,NONE [Primary Care Provider] - Time spent managing pt's care (in minutes): 42
[2021-07-02 09:11] VITALS: O2SAT 91
--- NOTE | 2021-07-02 11:49 | PN ---
Date of Progress Note: 07/02/2021 Diagnosis: History of morbid obesity, hypoxia, same time she has appendectomy. Subjective: This is the case of a 36-year-old patient, who comes to us with shortness of breath. Du ring the stay, found to have also appendicitis and even though she is short of breath. The emergency is also appendicitis and required appendectomy that was uneventfully, although it takes longer than usual to get it off the vent. She comes here with already some disease of the lungs and she was advi sed the importance in the future to follow with her primary doctor and even more important losing kadeem e weight. She is tolerating diet right now. Objective: Abdomen: Soft and depressible. Intact surgical site. Extremities: Good capillary refill. Assessment And Plan: She is planned to be discharged home. If she goes home, she was advised the im portance of no heavy lifting, losing weight and follow up in my office in 4 weeks from now. MARCO/KARTHIK Voice ID: [id number] Report ID: [id number]
[2021-07-02] MEDS: DAPTOmycin 700 MG in NA CHLORIDE 0.9% 100 ML IVPB SCH (14:08)
[2021-07-02 14:21] VITALS: BP 111/61; TEMP 97.2
--- NOTE | 2021-07-02 16:39 | P.PN ---
Subjective Date of Service: 07/02/21 Chief Complaint: Respiratory failure Patient seen and examined at bedside, completed IV antibiotics. Review of Systems 10-point ROS is otherwise unremarkable Physical Examination - Vital Signs Temperature: 97.2 F Blood Pressure: 111/61 Pulse: 67 Respirations: 20 Pulse Ox (%): 90 - Studies Laboratory Last Values WBC 9.60 K/uL (4.3-10.9) 06/07/21 18:15 RBC 3.56 M/uL (3.86-4.86) L 06/07/21 18:15 Hgb 11.0 g/dL (12.0-15.0) L 06/07/21 18:15 Hct 33.3 % (36.0-45.0) L 06/07/21 18:15 MCV 93.4 fL (80-100) 06/07/21 18:15 MCH 30.8 pg (27.0-35.0) 06/07/21 18:15 MCHC 33.0 g/dL (32.0-36.0) 06/07/21 18:15 RDW 13.9 % (12.1-15.2) 06/07/21 18:15 Plt Count 184 K/uL (152-406) 06/07/21 18:15 MPV 9.5 fL (7.6-11.3) 06/07/21 18:15 Neutrophils % 75.9 % (41.7-73.7) H 06/07/21 18:15 Lymphocytes % 12.0 % (15.3-44.8) L 06/07/21 18:15 Monocytes % 6.3 % (3.3-12.3) 06/07/21 18:15 Eosinophils % 4.7 % (0-4.4) H 06/07/21 18:15 Basophils % 1.1 % (0-1.3) 06/07/21 18:15 Absolute Neutrophils 7.3 K/uL (1.8-8.0) 06/07/21 18:15 Absolute Lymphocytes 1.2 K/uL (0.7-4.9) 06/07/21 18:15 Absolute Monocytes 0.6 K/uL (0.1-1.3) 06/07/21 18:15 Absolute Eosinophils 0.5 K/uL (0-0.5) 06/07/21 18:15 Absolute Basophils 0.1 K/uL (0-0.5) 06/07/21 18:15 PT 11.6 SECONDS (9.5-12.5) 06/07/21 18:15 INR 1.01 06/07/21 18:15 Sodium 140 mmol/L (136-145) 06/07/21 18:15 Potassium 3.6 mmol/L (3.5-5.1) 06/07/21 18:15 Chloride 103 mmol/L (98-107) 06/07/21 18:15 Carbon Dioxide 32 mmol/L (21-32) 06/07/21 18:15 BUN 9 mg/dL (7-18) 06/07/21 18:15 Creatinine 1.09 mg/dL (0.55-1.3) 06/07/21 18:15 Estimated GFR 56 mL/min (=/>90) L 06/07/21 18:15 Glucose 92 mg/dL (74-106) 06/07/21 18:15 Calcium 9.2 mg/dL (8.5-10.1) 06/07/21 18:15 Magnesium 2.5 mg/dL (1.8-2.4) H 06/07/21 18:15 Total Bilirubin 0.5 mg/dL (0.2-1.0) 06/07/21 18:15 Direct Bilirubin 0.1 mg/dL (0-0.2) 06/07/21 18:15 AST 46 U/L (15-37) H 06/07/21 18:15 ALT 27 U/L (12-78) 06/07/21 18:15 Alkaline Phosphatase 53 U/L (45-117) 06/07/21 18:15 Troponin I High Sens 6.30 pg/mL (<58.9) 06/07/21 18:15 NT-Pro-B Natriuret Pep 11 pg/mL (<125) 06/07/21 18:15 Serum Total Protein 7.6 g/dL (6.4-8.2) 06/07/21 18:15 Albumin 3.8 g/dL (3.4-5.0) 06/07/21 18:15 Globulin 3.8 g/dL (2.3-3.5) H 06/07/21 18:15 Albumin/Globulin Ratio 1.0 (1.1-1.8) L 06/07/21 18:15 Lipase 76 U/L (73-393) 06/07/21 18:15 Urine pH 6.5 (5.0-7.0) 06/07/21 18:35 Ur Specific [place] 1.025 (1.005-1.030) 06/07/21 18:35 Glucose (UA)(Auto) Negative (Negative) 06/07/21 18:35 Urine Ketones Trace (Negative) H 06/07/21 18:35 Urine Blood Negative (Negative) 06/07/21 18:35 Urine Nitrite Negative (Negative) 06/07/21 18:35 Ur Leukocyte Esterase Negative (Negative) 06/07/21 18:35 Urine RBC <5 /HPF (NONE SEEN) 06/07/21 18:35 Urine WBC <5 /HPF (<5) 06/07/21 18:35 Ur Squamous Epith Cells 20-50 /HPF (NONE SEEN) H 06/07/21 18:35 Urine Bacteria >50 /HPF (<20) H 06/07/21 18:35 Urine Mucus Heavy /HPF (NONE SEEN) 06/07/21 18:35 Urine Culture Reflexed Not needed 06/07/21 18:35 Urine Total Protein 2+ (Negative) H 06/07/21 18:35 Ur Specific [place] (HCG) 1.025 (1.005-1.030) 06/07/21 18:43 Urine Test Neg (NEG) 06/07/21 18:43 Influenza Type A RNA Negative (NEGATIVE) 06/07/21 20:16 Influenza Type B RNA Negative (NEGATIVE) 06/07/21 20:16 SARS-CoV-2 RNA (RT-PCR) Negative (NEGATIVE) 06/07/21 20:16 Assessment And Plan - Plan Physical Exam: General: Alert, In no apparent distress, Obese HEENT: Atraumatic, Normocephalic Neck: Supple Respiratory: Other (Crackles/rales bilateral ) Cardiovascular: Other (pedal edema ) Capillary refill: <2 Seconds Gastrointestinal: Tenderness (diffuse) Musculoskeletal: No clubbing, No swelling, No contractures Integumentary: No rashes, No breakdown Urinary: Fitzgerald catheter Conclusions/Impression: Antibiotics: Daptomycin start Levaquin start Vancomycin start Assessment/plan Gram-positive bacteremia Blood cultures obtained on 06/23 grew staph epi in both aerobic bottles. Repeat cultures negative on 06/26. Source of infection unclear--possible right arm PICC line that was placed 2 weeks ago--however site is clean and dry with no clinical signs of infection. Susceptibility showed resistance to vancomycin. Patient started on daptomycin on 06/26, recommend continuing for 7 to 10 days from negative blood culture report. Tentative antibiotic completion date of 07/02. Baseline creatinine phosphokinase elevated at 449. Repeat creatinine kinase 343>263. Continue to monitor renal function and signs of rhabdo including myopathy/neuropathy. Acute hypoxic respiratory failure Patient intubated on admission, extubated on 06/13 reintubated on 06/14, extubated on 06/25. Currently stable on 3 L of oxygen via nasal cannula. Most recent chest x-ray on 06/26 showed marked worsening of bilateral airspace disease. Could be sequela of Covid 19 infection in February versus pulmonary edema versus acute pneumonia. Completed course of levaquin. Pulmonology following. Patient currently receiving dexamethasone 2 mg daily. Sputum culture growing normal respiratory elyssa. Anemia Continue to monitor H&H. Recommend transfusion if hemoglobin drops below 7.0 Morbid obesity Hypothyroidism Asthma -Medical management per primary team Plan of care discussed with Dr. Barksdale Thank you for consultation Physical exam:
== END 2021-07-02 17:19 | disposition home or self-care (01) | DRG 341 ==
LOC: ER 16:44 → ERHOLD 06-08 00:51 → 2ND 06-08 01:10 → 3RD-ICU 06-09 18:54 → 2ND 06-27 17:25
PROVIDERS: ADMIT Internal Medicine; ATTEND Internal Medicine
PROC: 5A09357 Assistance with Respiratory Ventilation, Less than 24 Consecutive Hours, Continuous Positive Airway Pressure (ICD-10-PCS; 2021-06-08)
PROC: 0WQF0ZZ Repair Abdominal Wall, Open Approach (ICD-10-PCS; 2021-06-09)
PROC: 0BH17EZ Insertion of Endotracheal Airway into Trachea, Via Natural or Artificial Opening (ICD-10-PCS; 2021-06-09)
PROC: 5A1955Z Respiratory Ventilation, Greater than 96 Consecutive Hours (ICD-10-PCS; 2021-06-09)
PROC: 0DTJ4ZZ Resection of Appendix, Percutaneous Endoscopic Approach (ICD-10-PCS; principal; 2021-06-09 11:30)
PROC: 02HV33Z Insertion of Infusion Device into Superior Vena Cava, Percutaneous Approach (ICD-10-PCS; 2021-06-10)
PROC: 0BH17EZ Insertion of Endotracheal Airway into Trachea, Via Natural or Artificial Opening (ICD-10-PCS; 2021-06-14)
PROC: 5A1955Z Respiratory Ventilation, Greater than 96 Consecutive Hours (ICD-10-PCS; 2021-06-14)
PROC: 5A12012 Performance of Cardiac Output, Single, Manual (ICD-10-PCS; 2021-06-14)
PROC: 30233N1 Transfusion of Nonautologous Red Blood Cells into Peripheral Vein, Percutaneous Approach (ICD-10-PCS; 2021-06-17)
DX: K35.80 Unspecified acute appendicitis (principal); I46.8 Cardiac arrest due to other underlying condition; J96.02 Acute respiratory failure with hypercapnia; J96.01 Acute respiratory failure with hypoxia; R65.21 Severe sepsis with septic shock; R57.1 Hypovolemic shock; Z68.44 Body mass index [BMI] 60.0-69.9, adult; J45.901 Unspecified asthma with (acute) exacerbation; E66.2 Morbid (severe) obesity with alveolar hypoventilation; D62 Acute posthemorrhagic anemia; G47.33 Obstructive sleep apnea (adult) (pediatric); B95.7 Other staphylococcus as the cause of diseases classified elsewhere; B85.0 Pediculosis due to Pediculus humanus capitis; J84.10 Pulmonary fibrosis, unspecified; U09.9 Post COVID-19 condition, unspecified; K29.00 Acute gastritis without bleeding; E03.9 Hypothyroidism, unspecified; K42.9 Umbilical hernia without obstruction or gangrene; Z86.16 Personal history of COVID-19; Z20.822 Contact with and (suspected) exposure to COVID-19
CPT/HCPCS: 0240U; 36415; 36430; 36569; 71045; 74018; 74176; 74177; 76377; 76830; 80048; 80053; 80061; 80076; 80202; 81003; 81015; 81025; 82550; 82607; 82728; 82805; 82947; 83010; 83540; 83615; 83690; 83735; 83880; 84100; 84145; 84439; 84443; 84466; 84484; 85014; 85018; 85025; 85027; 85044; 85610; 86140; 86850; 86900; 86901; 87040; 87070; 87077; 87086; 87088; 87186; 87205; 88302; 88304; 92526; 92610; 93005; 93306; 93970; 94002; 94003; 94640; 94660; 94760; 94762; 96374; 96375; 97116; 97161; 97530; 99285; C9113; J0330; J0744; J0878; J1100; J1170; J1450; J1630; J1650; J1652; J1940; J2250; J2270; J2405; J2704; J2920; J2930; J3010; J3370; J3480; J3486; J7040; J7050; J7060; J7120; J7512; J7605; J8540; P9016; Q9967

== ENCOUNTER 2021-07-04 10:16 | Emergency (ER) | payer SELFPAY ==
--- OUTSIDE RECORDS SUMMARY | 2021-07-04 10:19 | XMS REPORT | Continuity of Care Document ---
:1985 Author Organization [facility] t Address [address] [place] [address] Dr. Marshall [address] [place] [id number] Care Team Providers Name Role Phone Unavailable Unavailable Unavailable Problems This patient has no known problems. Allergies, Adverse Reactions, Alerts This patient has no known allergies or adverse reactions. Medications This patient has no known medications. Procedures This patient has no known procedures. Results This patient has no known results.
[2021-07-04] MEDS ORDERED: LORAZEPAM 1 MG TABLET ONE (11:04)
--- NOTE | 2021-07-04 11:53 | ER ---
Nurse's Notes [facility] Name: Rachael Knox Age: 36 yrs Sex: Female : 1985 Arrival Date: 07/04/2021 Time: 10:17 Bed 25 Private MD: Diagnosis: Anxiety disorder, unspecified Presentation: 07/04 10:22 Chief complaint: Patient states: she had recent medical emergancy and was admitted to ap3 this facility. Patient states that she was discharged from this facility 2 days ago. She reports having a panic attack last night, and her provider wanted her to come into the ER to get her breathing evaluated. Coronavirus screen: At this time, the client does not indicate any symptoms associated with coronavirus-19. Ebola Screen: No symptoms or risks identified at this time. Initial Sepsis Screen: Does the patient meet any 2 criteria? No. Patient's initial sepsis screen is negative. Does the patient have a suspected source of infection? No. Patient's initial sepsis screen is negative. Risk Assessment: Do you want to hurt yourself or someone else? Patient reports no desire to harm self or others. Onset of symptoms was July 04, 2021. 10:22 Method Of Arrival: Wheelchair ap3 10:22 Acuity: DARSHAN 3 ap3 Triage Assessment: 10:25 General: Appears in no apparent distress. comfortable, Behavior is calm, cooperative. ap3 Pain: Denies pain. Neuro: Level of Consciousness is awake, alert, obeys commands, Oriented to person, place, time, situation, Appropriate for age Speech is normal. Cardiovascular: Patient's skin is warm and dry. Respiratory: Airway is patent Respiratory effort is even, unlabored, Respiratory pattern is regular, symmetrical. 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 Pneumococcal vaccine is not up to date, Flu vaccine is not up to date. - Social history:: Smoking status: Patient denies any tobacco usage or history of. Screenin:26 Abuse screen: Denies threats or abuse. Nutritional screening: No deficits noted. ap3 Tuberculosis screening: No symptoms or risk factors identified. Fall Risk Fall in past 12 months (25 points). Ambulatory Aid- Crutches/Cane/Walker (15 pts). Gait- Weak (10 pts.). Mental Status- Oriented to own ability (0 pts). Total Brink Fall Scale indicates High Risk Score (45 or more points). Fall prevention measures have been instituted. Side Rails Up X 2 Placed Close to Nursing Station Frequent Obs/Assessments Occuring As available patient and family educated on Fall Prevention Program and Strategies. Assessment: 10:40 General: Appears in no apparent distress. comfortable, Behavior is calm, cooperative. ke1 12:06 Reassessment: Patient appears in no apparent distress at this time. No changes from jd3 previously documented assessment. Patient and/or family updated on plan of care and expected duration. Pain level reassessed. Patient is alert, oriented x 3, equal unlabored respirations, skin warm/dry/pink. Vital Signs: 10:22 BP 126 / 79 LA (auto/lg); Pulse 75; Resp 19; Temp 97.2; Pulse Ox 97% on R/A; Height 5 ap3 ft. 5 in. (165.10 cm); 10:41 BP 113 / 67; Pulse 71; Resp 18; Temp 99; Pulse Ox 91% ; Height 5 ft. 5 in. (165.10 cm); ke1 12:03 BP 130 / 72; ke1 12:03 Pulse 66; Resp 18; Pulse Ox 97% on R/A; ke1 ED Course: 10:17 Patient arrived in ED. as 10:23 Triage completed. ap3 10:27 Arm band placed on right wrist. ap3 10:29 Neftali Feldman RN is Primary Nurse. jd3 10:29 Kang Clemente PA is PHCP. cp 10:29 Marisol Bowling MD is Attending Physician. cp 10:40 Patient has correct armband on for positive identification. Call light in reach. ke1 12:01 Sofía Brush RN is Primary Nurse. ke1 12:02 No provider procedures requiring assistance completed. Patient did not have IV access ke1 during this emergency room visit. Administered Medications: 11:05 Drug: Ativan (LORazepam) 1 mg Route: PO; jd3 12:03 Follow up: Response: No adverse reaction ke1 Outcome: 11:52 Discharge ordered by MD. lemus 12:02 Discharged to home ke1 12:02 Condition: stable 12:02 Discharge instructions given to patient. 12:04 Patient left the ED. ke1 Signatures: Bridget Kwon Corey, PA PA cp Davies, Jonathon, RN RN jd3 Jill Sheridan RN RN ap3 Sofía Brush RN RN ke1
--- NOTE | 2021-07-04 11:53 | EDPHYS ---
Physician Documentation [facility] Name: Rachael Knox Age: 36 yrs Sex: Female : 1985 Arrival Date: 07/04/2021 Time: 10:17 Bed 25 Private MD: ED Physician Marisol Bowling HPI: 07/04 10:45 This 36 yrs old Female presents to ER via Wheelchair with complaints of cp Anxiety. 10:45 The patient presents to the emergency department with anxiety, over health issues. cp 10:45 Onset: The symptoms/episode began/occurred last night. Past psychiatric history: Prior cp diagnosis: bipolar disorder, anxiety, Psychiatric medications include: none. Associated signs and symptoms: Pertinent negatives: abdominal pain, chest pain, fever, hallucinations, headache, shortness of breath, suicide ideation. 10:45 Patient presents to the emergency department after being referred with complaints of an cp anxiety attack last night. Patient denies any current shortness of breath, denies any chest pain, denies any abdominal pain. Patient reports she was recently discharged from this hospital after being on a ventilator. She states while hospitalized she had her appendix removed. 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 Pneumococcal vaccine is not up to date, Flu vaccine is not up to date. - Social history:: Smoking status: Patient denies any tobacco usage or history of. ROS: 10:50 Constitutional: Negative for body aches, chills, fever, poor PO intake. cp 10:50 Cardiovascular: Negative for chest pain. cp Exam: 10:55 Constitutional: The patient appears in no acute distress, alert, awake, cp non-diaphoretic, non-toxic, well developed, well nourished. 10:55 Head/Face: Normocephalic, atraumatic. cp 10:55 Eyes: Periorbital structures: appear normal, Conjunctiva: normal, no exudate, no cp injection, Lids and lashes: appear normal, bilaterally. 10:55 ENT: External ear(s): are unremarkable, Nose: is normal, Mouth: Lips: moist, Oral mucosa: moist, Posterior pharynx: Airway: no evidence of obstruction, patent. 10:55 Chest/axilla: Inspection: normal. 10:55 Cardiovascular: Rate: normal, Rhythm: regular, Edema: is not appreciated, JVD: is not appreciated. 10:55 Respiratory: the patient does not display signs of respiratory distress, Respirations: normal, no use of accessory muscles, no retractions, labored breathing, is not present, Breath sounds: are clear throughout, no decreased breath sounds, no stridor, no wheezing. 10:55 Abdomen/GI: Inspection: abdomen appears normal. 10:55 Back: pain, is absent. 10:55 Neuro: Orientation: to person, place \T\ time. Mentation: is normal. 10:55 Psych: Behavior/mood is anxious, tearful. Judgement / Insight is normal. Delusions/hallucinations are not present. Vital Signs: 10:22 BP 126 / 79 LA (auto/lg); Pulse 75; Resp 19; Temp 97.2; Pulse Ox 97% on R/A; Height 5 ap3 ft. 5 in. (165.10 cm); 10:41 BP 113 / 67; Pulse 71; Resp 18; Temp 99; Pulse Ox 91% ; Height 5 ft. 5 in. (165.10 cm); ke1 12:03 BP 130 / 72; ke1 12:03 Pulse 66; Resp 18; Pulse Ox 97% on R/A; ke1 MDM: 10:40 Patient medically screened. cp 11:50 Data reviewed: vital signs, nurses notes. cp 11:50 Counseling: I had a detailed discussion with the patient and/or guardian regarding: the cp historical points, exam findings, and any diagnostic results supporting the discharge/admit diagnosis, to return to the emergency department if symptoms worsen or persist or if there are any questions or concerns that arise at home. ED course: VSS. Patient reports symptoms improved with meds. Will discharge to home for continued monitoring. Administered Medications: 11:05 Drug: Ativan (LORazepam) 1 mg Route: PO; jd3 12:03 Follow up: Response: No adverse reaction ke1 Disposition Summary: 07/04/21 11:52 Discharge Ordered Location: Home cp Problem: an acute exacerbation cp Symptoms: have improved cp Condition: Stable cp Diagnosis - Anxiety disorder, unspecified cp Followup: cp - With: Private Physician - When: 2 - 3 days - Reason: Recheck today's complaints Discharge Instructions: - Discharge Summary Sheet cp - Panic Attack cp - Generalized Anxiety Disorder, Adult cp Forms: - Medication Reconciliation Form cp - Thank You Letter cp - Antibiotic Education cp - Prescription Opioid Use cp Prescriptions: - Ativan 0.5 mg Oral Tablet - take 1 tablet by ORAL route every 8 hours As needed; 10 tablet; Refills: 0, cp Product Selection Permitted Addendum: 07/05/2021 12:49 Co-signature as Attending Physician, Marisol Bowling MD I agree with the assessment and s p3 plan of care. Signatures: Kang Clemente PA PA cp Davies, Jonathon, RN RN jd3 Jill Sheridan RN RN ap3 Marisol Bowling MD MD sp3 Sofía Brush RN ke1
[2021-07-04 12:17] VITALS: TEMP 99
[2021-07-04 12:19] VITALS: BP 130/72; O2SAT 97
== END 2021-07-04 12:04 | disposition home or self-care (01) ==
LOC: ER 10:16
DX: F41.9 Anxiety disorder, unspecified (principal); I10 Essential (primary) hypertension; Z88.0 Allergy status to penicillin; Z88.1 Allergy status to other antibiotic agents; Z88.2 Allergy status to sulfonamides; Z88.3 Allergy status to other anti-infective agents
CPT/HCPCS: 99283

== ENCOUNTER 2021-07-05 16:32 | Emergency (ER) | payer SELFPAY ==
--- OUTSIDE RECORDS SUMMARY | 2021-07-05 16:34 | XMS REPORT | Continuity of Care Document ---
:1985 Author Organization [facility] t Address [address] [place] [address] Dr. Marshall [address] [place] [id number] Care Team Providers Name Role Phone Unavailable Unavailable Unavailable Problems This patient has no known problems. Allergies, Adverse Reactions, Alerts This patient has no known allergies or adverse reactions. Medications This patient has no known medications. Procedures This patient has no known procedures. Results This patient has no known results.
--- NOTE | 2021-07-05 17:31 | RAD REPORT ---
EXAM DESCRIPTION: RAD - Chest Single View - 07/05/2021 5:26 pm CLINICAL HISTORY: CHEST PAIN COMPARISON: Portable 06/27/2021 and 06/26/2021 TECHNIQUE: AP portable chest image was obtained 07/05/2021 5:26 pm . FINDINGS: Lung volumes are very low as has been noted on prior imaging. No new mass or consolidation . Retrocardiac left base assessment is more limited. Significant failure or volume overload are doubt ful. Cardiac silhouette is prominent but diminished from prior imaging. Central vasculature also decr eased from prior imaging. Trachea is midline. No measurable pleural effusion and no pneumothorax. No acute bony abnormality seen. No acute aortic findings suspected. IMPRESSION: No focal mass or consolidation. Heart size and vasculature are improved from prior imaging. No significant degree of failure or volum e overload.
[2021-07-05] MEDS ORDERED: LORazepam 2 MG/ML VIAL ONE (17:53)
[2021-07-05] MEDS ORDERED: KETOROLAC 30 MG/ML INJ ONE (17:54)
[2021-07-05 18:14] LABS: Absolute Lymphocytes (CBC) 1.1 K/uL (0.7-4.9); Hematocrit 34.3 % (36.0-45.0); Lymphocytes % 12.9 % (15.3-44.8); MPV 8.2 fL (7.6-11.3); Protime INR 1.12; RBC Red Blood Cell Count 3.52 M/uL (3.86-4.86)
[2021-07-05 18:57] LABS: Albumin 3.8 g/dL (3.4-5.0); Bilirubin Direct 0.2 mg/dL (0-0.2); Bilirubin Total 0.5 mg/dL (0.2-1.0); Protein, Total 7.5 g/dL (6.4-8.2); Troponin High Sensitivity 5.7 pg/mL (<58.9)
[2021-07-05 18:58] LABS: Magnesium 2.5 mg/dL (1.8-2.4); Potassium 3.9 mmol/L (3.5-5.1)
[2021-07-05 19:52] LABS: Urine Blood 1+ (Negative); Urine Glucose Negative (Negative); Urine Protein Trace (Negative); Urine Specific Gravity >=1.030 (1.005-1.030); Urine pH 5.5 (5.0-7.0)
--- NOTE | 2021-07-05 20:57 | RAD REPORT ---
EXAM DESCRIPTION: US - Extrem Venous W Compress Eran - 07/05/2021 8:19 pm CLINICAL HISTORY: SWELLING COMPARISON: None. TECHNIQUE: Real-time sonographic evaluation of the bilateral lower extremity common femoral, superfi cial femoral, popliteal and posterior tibial veins was performed. FINDINGS: Normal compressibility, flow augmentation, phasic flow and spontaneous flow are identified in the left and right lower extremity common femoral, superficial femoral, popliteal and posterior t ibial veins. No intraluminal filling defects seen. IMPRESSION: No DVT in either lower extremity.
[2021-07-06] MEDS ORDERED: DOXYCYCLINE 100 MG CAP PO ONE (01:12)
--- NOTE | 2021-07-06 01:16 | ER ---
Nurse's Notes [facility] Name: Rachael Knox Age: 36 yrs Sex: Female : 1985 Arrival Date: 07/05/2021 Time: 16:34 Bed 8 Private MD: Diagnosis: Other pneumonia, unspecified organism;Chest pain, unspecified Presentation: 07/05 17:03 Chief complaint: EMS states: Pt brought in by ems for cp that began on today. ic1 Coronavirus screen: Vaccine status: Patient reports receiving the 2nd dose of the covid vaccine. Ebola Screen: No symptoms or risks identified at this time. Initial Sepsis Screen: Does the patient meet any 2 criteria? No. Patient's initial sepsis screen is negative. Does the patient have a suspected source of infection? No. Patient's initial sepsis screen is negative. Risk Assessment: Do you want to hurt yourself or someone else? Patient reports no desire to harm self or others. Onset of symptoms was July 05, 2021. 17:03 Method Of Arrival: EMS: [facility] ic1 17:03 Acuity: DARSHAN 2 ic1 Triage Assessment: 17:04 General: Appears in no apparent distress. uncomfortable, Behavior is calm, cooperative. ic1 Pain: Complains of pain in chest. 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 - Social history:: Smoking status: Patient denies any tobacco usage or history of. Screenin:00 Abuse screen: Denies threats or abuse. Denies injuries from another. Nutritional eo2 screening: No deficits noted. Tuberculosis screening: No symptoms or risk factors identified. Fall Risk None identified. Assessment: 18:00 Reassessment: Pt reports CP, states she was in the hospital for 1 month, coded when she eo2 was getting a surgical procedure done,states she was recently discharged and has been worrying herself thinking about what happened to her, pt tearfully expressed she hasn't been able to see her children. Pt reassured, pt in NAD, will continue to monitor. General: Appears in no apparent distress. Behavior is calm, cooperative. Neuro: No deficits noted. Level of Consciousness is awake, alert, obeys commands, Oriented to person, place, time, situation, Denies dizziness, headache. Cardiovascular: Reports chest pain, "where my heart is" Heart tones present Capillary refill < 3 seconds Rhythm is sinus rhythm. Respiratory: Breath sounds are clear bilaterally. Denies cough, shortness of breath. GI: No signs and/or symptoms were reported involving the gastrointestinal system. Abdomen is round Bowel sounds present X 4 quads. Patient currently denies diarrhea, nausea, vomiting. : Denies burning with urination. 19:00 Reassessment: Patient and/or family updated on plan of care and expected duration. Pain ll3 level reassessed. Patient is alert, oriented x 3, equal unlabored respirations, skin warm/dry/pink. 21:20 Reassessment: Patient and/or family updated on plan of care and expected duration. Pain ll3 level reassessed. Patient is alert, oriented x 3, equal unlabored respirations, skin warm/dry/pink. 23:56 Reassessment: Patient and/or family updated on plan of care and expected duration. Pain ll3 level reassessed. Patient is alert, oriented x 3, equal unlabored respirations, skin warm/dry/pink. Pt states she is ready to go home but wants to wait for test results, ERP notified. 07/06 01:01 Reassessment: ERP at bedside discussing test results. ll3 Vital Signs: 07/05 17:00 BP 116 / 66; Pulse 63; Resp 15; Pulse Ox 95% ; eo2 17:03 BP 120 / 58; Pulse 63; Resp 18; Pulse Ox 93% on R/A; ic1 18:00 BP 121 / 74; Pulse 71; Resp 17; Pulse Ox 99% ; Pain 8/10; eo2 18:56 Pain 6/10; eo2 19:00 BP 124 / 66; Pulse 70; Resp 15; Pulse Ox 99% on R/A; ll3 20:00 BP 136 / 90; Pulse 66; Resp 17; Pulse Ox 96% on R/A; ll3 23:56 BP 118 / 65; Pulse 62; Resp 17; Pulse Ox 95% on R/A; ll3 0212 01:01 BP 124 / 69; Pulse 59; Resp 19; Pulse Ox 95% on R/A; ll3 Vitals: 07/05 18:00 Cardiac Rhythm Assessment Regular Sinus rhythm. eo2 ED Course: 16:34 Patient arrived in ED. eb 16:42 Kang Clemente PA is PHCP. cp 16:42 Kang Gifford MD is Attending Physician. cp 17:04 Triage completed. ic1 17:04 Arm band placed on right wrist. ic1 17:06 Patient has correct armband on for positive identification. Bed in low position. Call ic1 light in reach. Side rails up X2. quality assurance monitor chassis on. Pulse ox on. NIBP on. 17:06 Inserted saline lock: 20 gauge in left antecubital area, using aseptic technique. Blood ic1 collected. 17:24 Yumiko Sargent, VITA is Primary Nurse. eo2 17:26 XRAY Chest (1 view) In Process Unspecified. EDMS 18:00 Door closed. Noise minimized. eo2 18:00 No provider procedures requiring assistance completed. eo2 18:22 Troponin HS Sent. eo2 18:22 NT PRO-BNP Sent. eo2 18:22 Magnesium Sent. eo2 18:22 LFT's Sent. eo2 18:22 Basic Metabolic Panel Sent. eo2 19:08 Primary Nurse role handed off by Yumiko Sargent RN cs9 19:26 Report given to Naomy GORMAN. eo2 20:19 US Extremity Venous W Compression Eran In Process Unspecified. EDMS 22:27 Missed attempt(s): 22 gauge in left wrist. 24 gauge in right antecubital area. Bleeding ds4 controlled, band aid applied, catheter tip intact. 23:35 CT Chest For PE Angio In Process Unspecified. EDMS 23:56 Naomy Boswell, VITA is Primary Nurse. ll3 07/06 00:03 D-Dimer Sent. st1 00:03 LAB Add On Sent. st1 01:44 IV discontinued, intact, bleeding controlled, No redness/swelling at site. Pressure ll3 dressing applied. Administered Medications: 07/05 18:09 Drug: Ketorolac 30 mg {Note: pt denies .} Route: IVP; Site: left antecubital; eo2 18:56 Follow up: Pain 11/01 Adult; Response: No adverse reaction; Pain is decreased eo2 18:11 Drug: Ativan (LORazepam) 0.5 mg Route: IVP; Site: left antecubital; eo2 18:56 Follow up: Response: No adverse reaction eo2 02 01:15 Drug: Doxycycline 200 mg Route: PO; ll3 01:43 Follow up: Response: No adverse reaction ll3 Outcome: 01:15 Discharge ordered by MD. cp 01:44 Discharged to home ambulatory. ll3 01:44 Condition: stable 01:44 Discharge instructions given to patient, Instructed on discharge instructions, follow up and referral plans. medication usage, Demonstrated understanding of instructions, follow-up care, medications, Prescriptions given X 2. 01:44 Patient left the ED. ll3 Signatures: Dispatcher [employer] EDMS Damián Gongora ds4 Kang Clemente PA PA cp Botello, Elizabeth eb Stanford, Christine cs9 Naomy Boswell RN RN ll3 Yumiko Sargent RN RN eo2 Humera Garzon RN RN ic1 Mady Grover RN RN st1
--- NOTE | 2021-07-06 01:16 | EDPHYS ---
Physician Documentation [facility] Name: Rachael Knox Age: 36 yrs Sex: Female : 1985 Arrival Date: 07/05/2021 Time: 16:34 Bed 8 Private MD: ED Physician Kang Gifford HPI: 07/05 17:00 This 36 yrs old Female presents to ER via EMS with complaints of Chest Pain. cp 17:00 The patient or guardian reports chest pain that is located primarily in the substernal cp area. 17:00 The pain radiates to Associated signs and symptoms: Pertinent positives: shortness of cp breath. 17:00 The chest pain is described as aching. Duration: The patient or guardian reports a cp single episode, that is still ongoing. 17:00 Patient with recent hospitalization in which she coded and was intubated and placed on cp ventilator after have appendectomy. 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 - Social history:: Smoking status: Patient denies any tobacco usage or history of. ROS: 17:05 Cardiovascular: Positive for chest pain, Negative for edema, palpitations. cp 17:05 Respiratory: Negative for cough, shortness of breath, wheezing. cp 17:05 Eyes: Negative for injury, pain, redness, and discharge. cp 17:05 Constitutional: Negative for body aches, chills, fever, poor PO intake. 17:05 ENT: Negative for ear pain, sore throat, difficulty swallowing, difficulty handling secretions. 17:05 Abdomen/GI: Negative for abdominal pain, nausea, vomiting, and diarrhea. 17:05 Neuro: Negative for altered mental status, headache, numbness, syncope, weakness. cp 17:05 All other systems are negative. Exam: 17:10 Constitutional: The patient appears in no acute distress, alert, awake, cp non-diaphoretic, non-toxic, well developed, well nourished, morbidly obese, tearful 17:10 Head/Face: Normocephalic, atraumatic. cp 17:10 Eyes: Periorbital structures: appear normal, Conjunctiva: normal, no exudate, no injection, Sclera: no appreciated abnormality, Lids and lashes: appear normal, bilaterally. 17:10 ENT: External ear(s): are unremarkable, Nose: is normal, Mouth: Lips: moist, Oral mucosa: moist, Posterior pharynx: Airway: no evidence of obstruction, patent. 17:10 Neck: ROM/movement: is normal, is supple, without pain, no range of motions limitations. 17:10 Chest/axilla: Inspection: normal. 17:10 Cardiovascular: Rate: normal, Rhythm: regular, Edema: is not appreciated, JVD: is not appreciated. 17:10 Respiratory: the patient does not display signs of respiratory distress, Respirations: normal, no use of accessory muscles, no retractions, labored breathing, is not present, Breath sounds: are clear throughout, no decreased breath sounds, no stridor, no wheezing. 17:10 Abdomen/GI: Inspection: obese Palpation: abdomen is soft and non-tender, in all quadrants. 17:10 Neuro: Orientation: is normal, Mentation: is normal, Motor: moves all fours, strength is normal, Sensation: is normal. 17:10 Psych: Behavior/mood is cooperative, depressed. 17:38 ECG was reviewed by the Attending Physician. cp Vital Signs: 17:00 BP 116 / 66; Pulse 63; Resp 15; Pulse Ox 95% ; eo2 17:03 BP 120 / 58; Pulse 63; Resp 18; Pulse Ox 93% on R/A; ic1 18:00 BP 121 / 74; Pulse 71; Resp 17; Pulse Ox 99% ; Pain 8/10; eo2 18:56 Pain 6/10; eo2 19:00 BP 124 / 66; Pulse 70; Resp 15; Pulse Ox 99% on R/A; ll3 20:00 BP 136 / 90; Pulse 66; Resp 17; Pulse Ox 96% on R/A; ll3 23:56 BP 118 / 65; Pulse 62; Resp 17; Pulse Ox 95% on R/A; ll3 07/06 01:01 BP 124 / 69; Pulse 59; Resp 19; Pulse Ox 95% on R/A; ll3 MDM: 07/05 16:49 Patient medically screened. ze 17:00 Differential diagnosis: acute myocardial infarction, acute pericarditis, anxiety, chest cp wall pain, cholecystitis, Cholelithiasis costochondritis, gastritis, pancreatitis, pericarditis, pleurisy, pneumonia, pneumothorax, pulmonary embolus. 07/06 01:15 Data reviewed: vital signs, nurses notes, lab test result(s), EKG, radiologic studies, cp CT scan, plain films, ultrasound. 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 Interpretation: acceptable. Test interpretation: by ED physician or midlevel provider: ECG, plain radiologic studies. Counseling: I had a detailed discussion with the patient and/or guardian regarding: the historical points, exam findings, and any diagnostic results supporting the discharge/admit diagnosis, lab results, radiology results, the need for outpatient follow up, a family practitioner, to return to the emergency department if symptoms worsen or persist or if there are any questions or concerns that arise at home. Special discussion: Based on the patient's history, exam, and Dx evaluation, there is no indication for emergent intervention or inpatient Tx. It is understood by the patient/guardian that if the Sx's persist or worsen they need to return immediately for re-evaluation. ED course: VSS. Pain markedly improved with IV Toradol. CT chest shows concern for pneumonia vs inflammation. Will prescribe oral Doxycycline. Will discharge to home for continued monitoring. 07/05 16:52 Order name: Basic Metabolic Panel; Complete Time: 19:03 cp 07/05 19:04 Interpretation: Normal except: BUN 22; GFR 78. cp 07/05 16:52 Order name: CBC with Diff; Complete Time: 19:03 cp 07/05 19:04 Interpretation: Normal except: RBC 3.52; HGB 11.1; HCT 34.3; RDW 17.6; ABRAHAM% 78.4; LYM% cp 12.9. 07/05 16:52 Order name: LFT's; Complete Time: 19:03 07/05 16:52 Order name: Magnesium; Complete Time: 19:03 07/05 16:52 Order name: NT PRO-BNP; Complete Time: 19:03 cp 07/05 16:52 Order name: PT-INR; Complete Time: 19:03 07/05 16:52 Order name: Troponin HS; Complete Time: 19:03 07/05 19:04 Interpretation: Troponin HS 5.70; Reviewed. 07/05 16:52 Order name: XRAY Chest (1 view); Complete Time: 18:01 cp 07/05 18:02 Interpretation: Report review. 07/05 19:07 Order name: LAB Add On 07/05 19:07 Order name: D-Dimer 07/05 19:08 Order name: D-Dimer; Complete Time: 19:26 EDMS 07/05 19:26 Interpretation: Reviewed. 07/05 19:52 Order name: Urine Dipstick-Ancillary; Complete Time: 20:22 EDMS 07/05 20:22 Interpretation: Normal except: UBLD 1+; UPROT Trace. 07/05 19:52 Order name: Urine --Ancillary (enter results); Complete Time: 20:22 cs9 07/06 00:21 Order name: Troponin High Sensitivity 07/05 16:52 Order name: EKG; Complete Time: 16:53 07/05 16:52 Order name: Cardiac monitoring; Complete Time: 18:22 07/05 16:52 Order name: EKG - Nurse/Tech; Complete Time: 18:22 07/05 16:52 Order name: IV Saline Lock; Complete Time: 18:22 07/05 16:52 Order name: Labs collected and sent; Complete Time: 18:22 07/05 16:52 Order name: O2 Per Protocol; Complete Time: 18:22 07/05 16:52 Order name: O2 Sat Monitoring; Complete Time: 18:22 07/05 16:52 Order name: Urine Dipstick-Ancillary (obtain specimen); Complete Time: 20:00 07/05 16:52 Order name: Urine Test (obtain specimen); Complete Time: 20:00 07/05 19:26 Order name: CT Chest For PE Angio cp 07/05 19:31 Order name: US Extremity Venous W Compression Eran; Complete Time: 00:41 cp EC/11 17:38 Rate is 69 beats/min. Rhythm is regular. WA interval is normal. QRS interval is normal. cp QT interval is normal. T waves are Inverted in leads I, II, aVL. Interpreted by me. Reviewed by me. Administered Medications: 18:09 Drug: Ketorolac 30 mg {Note: pt denies .} Route: IVP; Site: left antecubital; eo2 18:56 Follow up: Pain 11/01 Adult; Response: No adverse reaction; Pain is decreased eo2 18:11 Drug: Ativan (LORazepam) 0.5 mg Route: IVP; Site: left antecubital; eo2 18:56 Follow up: Response: No adverse reaction eo2 07/06 01:15 Drug: Doxycycline 200 mg Route: PO; ll3 01:43 Follow up: Response: No adverse reaction ll3 Disposition: 05:08 Co-signature as Attending Physician, Kang Gifford MD I agree with the assessment and ze plan of care. Disposition Summary: 07/06/21 01:15 Discharge Ordered Location: Home cp Condition: Stable cp Diagnosis - Other pneumonia, unspecified organism cp - Chest pain, unspecified cp Followup: cp - With: Private Physician - When: 2 - 3 days - Reason: Recheck today's complaints Discharge Instructions: - Discharge Summary Sheet cp - Nonspecific Chest Pain, Adult cp - Community-Acquired Pneumonia, Adult cp Forms: - Medication Reconciliation Form cp - Thank You Letter cp - Antibiotic Education cp - Prescription Opioid Use cp Prescriptions: - Doxycycline Hyclate 100 mg Oral Tablet - take 1 tablet by ORAL route every 12 hours; 20 tablet; Refills: 0, Product cp Selection Permitted - Diclofenac Sodium 75 mg Oral Tablet Sustained Release - take 1 tablet by ORAL route 2 times per day; 30 tablet; Refills: 0, Product cp Selection Permitted Signatures: Dispatcher [employer] Kang Singleton MD MD cha Page, Corey, PA PA cp Naomy Boswell RN RN ll3 Yumiko Sargent RN RN eo2 Humera Garzon RN RN ic1
[2021-07-06 02:07] VITALS: O2SAT 95
[2021-07-06 02:08] VITALS: BP 124/69
--- NOTE | 2021-07-06 17:23 | RAD REPORT ---
EXAM DESCRIPTION: CT - Chest For Pe Angio - 07/06/2021 7:22 am Chest For Pe Angio RadLex: CT CHEST ANGIOGRAPHY WITH IV CONTRAST CLINICAL HISTORY: CHEST PAIN. COMPARISON: Chest radiograph from June 10, 2021. TECHNIQUE: CTA of the chest was performed following intravenous administration of iodinated contrast . Axial soft tissue and lung window, and coronal and sagittal soft tissue window reconstructions were created and sent to PACS. 3D postprocessing was performed on an independent workstation, with images sent to PACS for subsequen t review. This exam was performed according to our departmental dose-optimization program, which includes autom ated exposure control, adjustment of the mA and/or kV according to patient size and/or use of iterati ve reconstruction technique. FINDINGS: Vascular: The pulmonary arteries are well-opacified to the segmental level. No CT evidence of acute pulmonary thromboembolism. No evidence of aortic aneurysm or dissection. Lungs and pleura: Small patchy groundglass opacities in the right upper lobe. Thin streaks of atelect asis in the lung bases. No pleural effusion. No pneumothorax. Mediastinum and neck: No mediastinal lymphadenopathy by CT size criteria. Unremarkable appearance of the thyroid gland. Cardiac: Mild cardiomegaly. No pericardial effusion. Abdomen: No significant upper abdominal abnormality identified. Musculoskeletal: No concerning osseous abnormality. IMPRESSION: 1. No CTA evidence of acute pulmonary thromboembolism. 2. Small patchy groundglass opacities in the right upper lobe, concerning for infectious/inflammato ry etiology. 3. Mild cardiomegaly. Electronically signed by: Rosalie Frey MD 07/06/2021 12:05 AM LOCKSTITCH MACHINE OPERATOR Due to temporary technical issues with the PACS/Fluency reporting system, reports are being signed by the in house radiologists without review as a courtesy to insure prompt reporting. The interpreting radiologist is fully responsible for the content of the report.
== END 2021-07-06 01:44 | disposition home or self-care (01) ==
LOC: ER 16:32
DX: J18.8 Other pneumonia, unspecified organism (principal); J45.909 Unspecified asthma, uncomplicated; E03.9 Hypothyroidism, unspecified; I10 Essential (primary) hypertension; Z88.0 Allergy status to penicillin; Z88.1 Allergy status to other antibiotic agents; Z88.2 Allergy status to sulfonamides; Z88.3 Allergy status to other anti-infective agents
CPT/HCPCS: 36415; 71045; 71275; 80048; 80076; 81003; 81025; 83735; 83880; 84484; 85025; 85379; 85610; 93005; 93970; 96374; 96375; 99285; Q9967

== ENCOUNTER 2021-07-16 12:58 | Emergency (ER) | payer SELFPAY ==
--- OUTSIDE RECORDS SUMMARY | 2021-07-16 13:01 | XMS REPORT | Continuity of Care Document ---
:1985 Author Organization [facility] t Address [address] [place] [address] Dr. Marshall [address] [place] [id number] Care Team Providers Name Role Phone Unavailable Unavailable Unavailable Problems This patient has no known problems. Allergies, Adverse Reactions, Alerts This patient has no known allergies or adverse reactions. Medications This patient has no known medications. Procedures This patient has no known procedures. Results This patient has no known results.
[2021-07-16] MEDS ORDERED: LORAZEPAM 1 MG TABLET ONE (16:06)
[2021-07-16 17:17] LABS: Absolute Lymphocytes (CBC) 1.3 K/uL (0.7-4.9); Hematocrit 35.4 % (36.0-45.0); Lymphocytes % 22.4 % (15.3-44.8); MPV 9.1 fL (7.6-11.3); RBC Red Blood Cell Count 3.69 M/uL (3.86-4.86)
[2021-07-16 17:37] LABS: White Blood Cell Scan OK (OK)
[2021-07-16 17:38] LABS: Blood Morphology Comment NOT SEEN (NOT SEEN); Platelet Estimate ADEQ
[2021-07-16 17:44] LABS: ALT/SGPT 34 U/L (12-78); Albumin 3.9 g/dL (3.4-5.0); Alkaline Phosphatase 48 U/L (45-117); BUN Blood Urea Nitrogen 15 mg/dL (7-18); Bicarbonate 29 mmol/L (21-32); Bilirubin Total 0.3 mg/dL (0.2-1.0); Glucose Level 89 mg/dL (74-106); NT PRO-BNP 54 pg/mL (<125); Protein, Total 7.4 g/dL (6.4-8.2); Sodium Level 137 mmol/L (136-145)
[2021-07-16 17:46] LABS: AST/SGOT 18 U/L (15-37); Bilirubin Direct < 0.1 mg/dL (0-0.2); Magnesium 2.2 mg/dL (1.8-2.4)
--- NOTE | 2021-07-16 18:05 | ER ---
Nurse's Notes [facility] Name: Rachael Knox Age: 36 yrs Sex: Female : 1985 Arrival Date: 07/16/2021 Time: 13:01 Bed 30 Private MD: Diagnosis: Generalized edema Presentation: 07/16 13:26 Chief complaint: Patient states: Bilateral feet swelling and hand tingling with chest ss discomfort that began yesterday. Pt states, "I took at Ativan because I thought it was anxiety, but it didn't help.". Coronavirus screen: Client denies travel out of the [place] in the last 14 days. Ebola Screen: Patient denies exposure to infectious person. Patient denies travel to an Ebola-affected area in the 21 days before illness onset. Initial Sepsis Screen: Does the patient meet any 2 criteria? No. Patient's initial sepsis screen is negative. Does the patient have a suspected source of infection? No. Patient's initial sepsis screen is negative. Risk Assessment: Do you want to hurt yourself or someone else? Patient reports no desire to harm self or others. Onset of symptoms was July 15, 2021. 13:26 Method Of Arrival: Ambulatory ss 13:26 Acuity: DARSHAN 3 ss Historical: - Allergies: 13:27 Azithromycin; ss 13:27 Bactrim; ss 13:27 mycins; ss 13:27 PENICILLINS; ss 13:27 Sulfa (Sulfonamide Antibiotics); ss - Home Meds: 16:14 Ativan Oral [Active]; levothyroxine oral [Active]; ss7 - PMHx: 13:27 Anemia; Anxiety; Asthma; Bipolar disorder; cardiac arrest; Hypertension; Hypothyroidism;ss - PSHx: 13:27 Appendectomy; section; hernia repair; Tonsillectomy; ss - Immunization history:: Client reports having NOT received the Covid vaccine. - Social history:: Smoking status: Patient denies any tobacco usage or history of. - Family history:: not pertinent. Screenin:13 Abuse screen: Denies threats or abuse. Nutritional screening: No deficits noted. ss7 Tuberculosis screening: No symptoms or risk factors identified. Fall Risk None identified. Assessment: 16:11 General: Appears in no apparent distress. Behavior is calm, cooperative. Pain: ss7 Complains of pain in chest Aggravated by. Neuro: Reports paresthesias in right hand and left hand. Cardiovascular: Heart tones S1 S2. Cardiovascular: Reports swelling to BLE. Respiratory: Breath sounds are clear bilaterally. GI: No deficits noted. : No deficits noted. EENT: No deficits noted. Derm: No deficits noted. Musculoskeletal: No deficits noted. Vital Signs: 13:28 BP 132 / 85; Pulse 70; Resp 17; Temp 98.2(TE); Pulse Ox 96% on R/A; Height 5 ft. 5 in. ss (165.10 cm); Pain 7/10; 16:11 BP 126 / 104; Pulse 74; Resp 18; Pulse Ox 100% on R/A; ss7 17:11 BP 112 / 67; Pulse 74; Resp 20; Pulse Ox 97% on R/A; ss7 18:49 BP 128 / 68; Pulse 70; Resp 18; Pulse Ox 97% on R/A; ss7 ED Course: 13:01 Patient arrived in ED. ds1 13:27 Triage completed. ss 13:27 Arm band placed on right wrist. ss 15:57 Tiny Pyle MD is Attending Physician. ma2 16:00 Ofe Wright, RN is Primary Nurse. ss7 16:13 Patient has correct armband on for positive identification. Bed in low position. Call 7 light in reach. 16:13 No provider procedures requiring assistance completed. ss7 17:09 Door closed. crackers given. ss7 17:09 Inserted saline lock: 20 gauge in right antecubital area, using aseptic technique. ss7 17:09 Liver (Hepatic) Function Sent. ss7 17:09 CBC with Automated Diff Sent. ss7 17:09 Basic Metabolic Panel Sent. ss7 17:09 Basic Metabolic Panel Sent. ss7 17:09 CBC with Diff Sent. ss7 17:10 LFT's Sent. ss7 17:10 Magnesium Sent. ss7 17:10 NT PRO-BNP Sent. ss7 17:10 PT-INR Sent. ss7 17:10 Troponin HS Sent. ss7 18:49 IV discontinued, intact. ss7 Administered Medications: 16:10 Drug: Ativan (LORazepam) 2 mg Route: PO; ss7 18:52 Follow up: Response: No adverse reaction 7 Outcome: 18:05 Discharge ordered by . ma2 18:49 Discharged to home ambulatory. ss7 18:49 Condition: good 18:49 Discharge instructions given to Prescriptions given X 1. 18:52 Patient left the ED. ss7 Signatures: Fern Mckeon ds1 Guerline Ford RN RN ss Tiny Pyle MD MD ma2 Ofe Wright RN RN 7
--- NOTE | 2021-07-16 18:06 | EDPHYS ---
Physician Documentation [facility] Name: Rachael Knox Age: 36 yrs Sex: Female : 1985 Arrival Date: 07/16/2021 Time: 13:01 Bed 30 Private MD: ED Physician Tiny Pyle HPI: 07/16 16:48 This 36 yrs old Female presents to ER via Ambulatory with complaints of ma2 Swollen Feet, Chest Discomfort. 16:48 36-year-old with history of anxiety, bipolar, she has been having lower extremity ma2 swelling for 2 weeks, she got scared that she is going to , and started having panic attacks, she is scared that she has heart problems, she said she had anxiety and tingling in both hands because she is breathing fast, she denies chest pain, never had heart issues before. Of note she had cardiac arrest after appendectomy because it was difficult to get her off the ventilator.. Historical: - Allergies: 13:27 Azithromycin; ss 13:27 Bactrim; ss 13:27 mycins; ss 13:27 PENICILLINS; ss 13:27 Sulfa (Sulfonamide Antibiotics); ss - Home Meds: 16:14 Ativan Oral [Active]; levothyroxine oral [Active]; ss7 - PMHx: 13:27 Anemia; Anxiety; Asthma; Bipolar disorder; cardiac arrest; Hypertension; Hypothyroidism;ss - PSHx: 13:27 Appendectomy; section; hernia repair; Tonsillectomy; ss - Immunization history:: Client reports having NOT received the Covid vaccine. - Social history:: Smoking status: Patient denies any tobacco usage or history of. - Family history:: not pertinent. ROS: 16:48 Constitutional: Negative for fever, chills, and weight loss. ma2 16:48 All other systems are negative. Exam: 16:48 Constitutional: Patient is crying, anxious, morbidly obese, otherwise well developed, ma2 well nourished patient who is awake, alert, and in no acute distress. Head/Face: Normocephalic, atraumatic. Eyes: Pupils equal round and reactive to light, extra-ocular motions intact. Lids and lashes normal. Conjunctiva and sclera are non-icteric and not injected. Cornea within normal limits. Periorbital areas with no swelling, redness, or edema. ENT: Nares patent. No nasal discharge, no septal abnormalities noted. Tympanic membranes are normal and external auditory canals are clear. Oropharynx with no redness, swelling, or masses, exudates, or evidence of obstruction, uvula midline. Mucous membranes moist. Neck: Trachea midline, no thyromegaly or masses palpated, and no cervical lymphadenopathy. Supple, full range of motion without nuchal rigidity, or vertebral point tenderness. No Meningismus. Chest/axilla: Normal chest wall appearance and motion. Nontender with no deformity. No lesions are appreciated. Cardiovascular: Regular rate and rhythm with a normal S1 and S2. No gallops, murmurs, or rubs. Normal PMI, no JVD. No pulse deficits. I did not appreciate lower extremity edema, of note patient is morbidly obese overall, no lower extremity pitting edema, both lower extremity are equal, with palpable pulses normal color and brisk cap refill, Respiratory: Lungs have equal breath sounds bilaterally, clear to auscultation and percussion. No rales, rhonchi or wheezes noted. No increased work of breathing, no retractions or nasal flaring. Abdomen/GI: Soft, non-tender, with normal bowel sounds. No distension or tympany. No guarding or rebound. No evidence of tenderness throughout. Back: No spinal tenderness. No costovertebral tenderness. Full range of motion. Skin: Warm, dry with normal turgor. Normal color with no rashes, no lesions, and no evidence of cellulitis. MS/ Extremity: Pulses equal, no cyanosis. Neurovascular intact. Full, normal range of motion. Neuro: Awake and alert, GCS 15, oriented to person, place, time, and situation. Cranial nerves II-XII grossly intact. Motor strength 5/5 in all extremities. Sensory grossly intact. Cerebellar exam normal. Normal gait. Vital Signs: 13:28 BP 132 / 85; Pulse 70; Resp 17; Temp 98.2(TE); Pulse Ox 96% on R/A; Height 5 ft. 5 in. ss (165.10 cm); Pain 7/10; 16:11 BP 126 / 104; Pulse 74; Resp 18; Pulse Ox 100% on R/A; ss7 17:11 BP 112 / 67; Pulse 74; Resp 20; Pulse Ox 97% on R/A; ss7 18:49 BP 128 / 68; Pulse 70; Resp 18; Pulse Ox 97% on R/A; ss7 MDM: 18:04 Differential diagnosis: Anxiety Reaction Bronchitis Chronic Obstructive Pulmonary ma2 Disease Psychogenic. Data reviewed: vital signs, nurses notes, EMS record, halfway records. Counseling: I had a detailed discussion with the patient and/or guardian regarding: the historical points, exam findings, and any diagnostic results supporting the discharge/admit diagnosis, the presence of at least one elevated blood pressure reading (>120/80) during this emergency department visit, the need for outpatient follow up. Response to treatment: the patient's symptoms have markedly improved after treatment. 18:05 Patient medically screened. [facility] 07/16 16:46 Order name: Basic Metabolic Panel [facility] 07/16 16:46 Order name: CBC with Diff [facility] 07/16 16:46 Order name: LFT's [facility] 07/16 16:46 Order name: Magnesium; Complete Time: 18:04 [facility] 07/16 16:46 Order name: NT PRO-BNP; Complete Time: 18:04 [facility] 07/16 16:46 Order name: PT-INR [facility] 07/16 16:46 Order name: Troponin HS; Complete Time: 18:04 [facility] 07/16 16:46 Order name: EKG; Complete Time: 16:47 tx2 07/16 16:46 Order name: Cardiac monitoring; Complete Time: 17:10 [facility] 07/16 16:47 Order name: Basic Metabolic Panel; Complete Time: 18:04 [facility] 07/16 16:47 Order name: CBC with Automated Diff; Complete Time: 18:04 [facility] 07/16 16:47 Order name: Liver (Hepatic) Function; Complete Time: 18:04 [facility] 07/16 17:38 Order name: CBC Smear Scan; Complete Time: 18:04 [facility] 07/16 16:46 Order name: EKG - Nurse/Tech; Complete Time: 17:43 tx2 07/16 16:46 Order name: IV Saline Lock; Complete Time: 17:10 tx2 07/16 16:46 Order name: Labs collected and sent; Complete Time: 17:10 [facility] 07/16 16:46 Order name: O2 Per Protocol; Complete Time: 17:10 [facility] 07/16 16:46 Order name: O2 Sat Monitoring; Complete Time: 17:10 ma2 07/16 17:17 Order name: Labs - recollect needed: recollect blue top; Complete Time: 18:03 bd Administered Medications: 16:10 Drug: Ativan (LORazepam) 2 mg Route: PO; ss7 18:52 Follow up: Response: No adverse reaction ss7 Disposition Summary: 07/16/21 18:05 Discharge Ordered Location: Home ma2 Condition: Stable ma2 Diagnosis - Generalized edema ma2 Followup: ma2 - With: Private Physician - When: Tomorrow - Reason: If symptoms return, Continuance of care Discharge Instructions: - Discharge Summary Sheet ma2 - Edema, [id number] ma2 Forms: - Medication Reconciliation Form ma2 - Thank You Letter ma2 - Antibiotic Education ma2 - Prescription Opioid Use ma2 Prescriptions: - Lasix 20 mg Oral Tablet - take 1 tablet by ORAL route once daily; 20 tablet; Refills: 0, Product ma2 Selection Permitted Signatures: Dispatcher [employer] Lillian Fisher Shelby, RN RN ss Tiny Pyle MD MD tx2 Ofe Wright RN RN ss7
[2021-07-16 18:10] LABS: Protime INR 1.03
[2021-07-16 21:03] VITALS: TEMP 98.2
[2021-07-16 21:05] VITALS: O2SAT 97
[2021-07-16 21:06] VITALS: BP 128/68
== END 2021-07-16 18:52 | disposition home or self-care (01) ==
LOC: ER 12:58
DX: R60.1 Generalized edema (principal); E03.9 Hypothyroidism, unspecified; F41.9 Anxiety disorder, unspecified; Z88.0 Allergy status to penicillin; Z88.1 Allergy status to other antibiotic agents; Z88.2 Allergy status to sulfonamides; Z88.3 Allergy status to other anti-infective agents
CPT/HCPCS: 36415; 80048; 80076; 83735; 83880; 84484; 85025; 85610; 99284

== ENCOUNTER 2021-07-27 22:26 | Emergency (ER) | payer SELFPAY ==
--- OUTSIDE RECORDS SUMMARY | 2021-07-27 22:28 | XMS REPORT | Continuity of Care Document ---
:1985 Author Organization [facility] t Address [address] [place] [address] Dr. Marshall [address] [place] [id number] Care Team Providers Name Role Phone Unavailable Unavailable Unavailable Problems This patient has no known problems. Allergies, Adverse Reactions, Alerts This patient has no known allergies or adverse reactions. Medications This patient has no known medications. Procedures This patient has no known procedures. Results This patient has no known results.
[2021-07-27] MEDS ORDERED: LORAZEPAM 1 MG TABLET ONE (22:56)
[2021-07-27 23:15] LABS: Absolute Lymphocytes (CBC) 1.3 K/uL (0.7-4.9); Hematocrit 33.9 % (36.0-45.0); Lymphocytes % 14.6 % (15.3-44.8); MPV 9.2 fL (7.6-11.3); RBC Red Blood Cell Count 3.55 M/uL (3.86-4.86)
[2021-07-27 23:19] LABS: Protime INR 0.95
[2021-07-27 23:34] LABS: ALT/SGPT 29 U/L (12-78); AST/SGOT 13 U/L (15-37); Albumin 3.5 g/dL (3.4-5.0); Alkaline Phosphatase 50 U/L (45-117); BUN Blood Urea Nitrogen 11 mg/dL (7-18); Bicarbonate 28 mmol/L (21-32); Bilirubin Total 0.3 mg/dL (0.2-1.0); Glucose Level 109 mg/dL (74-106); NT PRO-BNP 109 pg/mL (<125); Potassium 3.1 mmol/L (3.5-5.1); Sodium Level 143 mmol/L (136-145)
[2021-07-27 23:36] LABS: Bilirubin Direct < 0.1 mg/dL (0-0.2)
--- NOTE | 2021-07-28 01:17 | ER ---
Nurse's Notes [facility] Name: Rachael Knox Age: 36 yrs Sex: Female : 1985 Arrival Date: 07/27/2021 Time: 22:35 Bed 8 Private MD: Diagnosis: Chest pain, unspecified Presentation: 07/27 22:35 Chief complaint: Patient states: "I just feel like something is wrong, I'm dizzy and my as6 chest has been hurting off and on for 2 days and I don't know why my legs are swelling" EMS states: called out for shortness of breath, chest pain, dizziness. Coronavirus screen: Vaccine status: Patient reports being unvaccinated. Ebola Screen: No symptoms or risks identified at this time. Initial Sepsis Screen: Does the patient meet any 2 criteria? No. Patient's initial sepsis screen is negative. Does the patient have a suspected source of infection? No. Patient's initial sepsis screen is negative. Risk Assessment: Do you want to hurt yourself or someone else? Patient reports no desire to harm self or others. Onset of symptoms is unknown. 22:35 Method Of Arrival: EMS: [facility] as6 22:35 Acuity: DARSHAN 3 as6 Historical: - Allergies: 22:38 Azithromycin; as6 22:38 Bactrim; as6 22:38 mycins; as6 22:38 PENICILLINS; as6 22:38 Sulfa (Sulfonamide Antibiotics); as6 - Home Meds: 22:38 Albuterol Inhl [Active]; Ativan Oral [Active]; levothyroxine oral [Active]; as6 - PMHx: 22:38 Anemia; Anxiety; Asthma; Bipolar disorder; cardiac arrest; Hypertension; Hypothyroidism;as6 - PSHx: 22:38 Appendectomy; section; hernia repair; Tonsillectomy; as6 - Immunization history:: Client reports having NOT received the Covid vaccine. - Social history:: Smoking status: Patient denies any tobacco usage or history of. Screenin:48 Abuse screen: Denies threats or abuse. Denies injuries from another. Nutritional as6 screening: No deficits noted. Tuberculosis screening: No symptoms or risk factors identified. Fall Risk None identified. Assessment: 22:44 General: Appears in no apparent distress. Behavior is anxious, crying. Pain: Complains as6 of pain in chest Pain currently is 8 out of 10 on a pain scale. Neuro: Level of Consciousness is awake, alert, obeys commands, Oriented to person, place, time. Neuro: Reports dizziness. Cardiovascular: Heart tones S1 S2 present Edema is 4+ to BLE pitting to BLE Rhythm is sinus rhythm. Respiratory: Airway is patent Trachea midline Respiratory effort is even, unlabored, Respiratory pattern is regular, symmetrical, Breath sounds are clear bilaterally. 07/28 01:09 Reassessment: TOMMY Dobbins at bedside. ll3 Vital Signs: 07/27 22:35 BP 137 / 88; Pulse 74; Resp 14 S; Temp 98.5(O); Pulse Ox 94% on R/A; Weight 154.22 kg as6 (R); Height 5 ft. 5 in. (165.10 cm) (R); Pain 8/10; 23:35 BP 143 / 95; Pulse 72; Resp 11 S; Pulse Ox 98% on R/A; as6 03 01:09 BP 141 / 91; Pulse 79; Resp 14; Pulse Ox 98% ; ll3 07/27 22:35 Body Mass Index 56.58 (154.22 kg, 165.10 cm) as6 ED Course: 03 22:35 Patient arrived in ED. as6 22:35 Smooth Wilson RN is Primary Nurse. as6 22:38 Triage completed. as6 22:39 Arm band placed on. EKG completed in triage. Results shown to MD. as6 22:42 Andrés Gilmore WELT CUTTER is PHCP. pm1 22:42 Jaylan Ortiz MD is Attending Physician. pm1 22:48 Placed in gown. Bed in low position. Call light in reach. Side rails up X2. Cardiac as6 monitor on. Pulse ox on. NIBP on. 22:59 Inserted saline lock: 20 gauge in right antecubital area, using aseptic technique. as6 Blood collected. 23:01 Basic Metabolic Panel Sent. as6 23:01 LFT's Sent. as6 23:01 CBC with Diff Sent. as6 23:01 Magnesium Sent. as6 23:01 NT PRO-BNP Sent. as6 23:02 PT-INR Sent. as6 23:02 Troponin HS Sent. as6 23:08 XRAY Chest (1 view) In Process Unspecified. EDMS 23:35 Door closed. Noise minimized. Warm blanket given. Pillow given. as6 07/28 01:30 No provider procedures requiring assistance completed. IV discontinued, intact, ll3 bleeding controlled, No redness/swelling at site. Pressure dressing applied. Administered Medications: 07/27 22:55 Drug: Ativan (LORazepam) 1 mg Route: PO; as6 07/28 01:28 Drug: Potassium Chloride 40 mEq Route: PO; ll3 01:30 Follow up: Response: Medication administered at discharge. ll3 Outcome: 01:16 Discharge ordered by MD. pm1 01:30 Discharged to home ambulatory. ll3 01:30 Condition: stable 01:30 Discharge instructions given to patient, Instructed on discharge instructions, follow up and referral plans. medication usage, Demonstrated understanding of instructions, follow-up care, medications, Prescriptions given X 1. 01:31 Patient left the ED. ll3 Signatures: Dispatcher [employer] EDWA Andrés Gilmore, SHERIDAN WELT CUTTER pm1 Smooth Wilson, VITA RN as6 Naomy Boswell RN RN ll3
--- NOTE | 2021-07-28 01:17 | EDPHYS ---
Physician Documentation [facility] Name: Rachael Knox Age: 36 yrs Sex: Female : 1985 Arrival Date: 07/27/2021 Time: 22:35 Bed 8 Private MD: ED Physician Jaylan Ortiz HPI: 07/27 22:48 This 36 yrs old Female presents to ER via EMS with complaints of Chest pain. pm1 22:48 The patient or guardian reports chest pain that is located primarily in the mid-sternal pm1 area. The pain does not radiate. Associated signs and symptoms: Pertinent positives: shortness of breath, Anxiety, bilateral lower extremity swelling, Pertinent negatives: abdominal pain, diaphoresis, dizziness, headache, nausea, palpitations, vomiting. The chest pain is described as burning. Duration: The patient or guardian reports a single episode, that is still ongoing. Modifying factors: The symptoms are alleviated by nothing. the symptoms are aggravated by nothing. Severity of pain: in the emergency department the pain is unchanged. The patient has not recently seen a physician. Patient reports anxiety and is requesting Ativan. Reports that she has not taken it for some time and only takes it PRN. Historical: - Allergies: 22:38 Azithromycin; as6 22:38 Bactrim; as6 22:38 mycins; as6 22:38 PENICILLINS; as6 22:38 Sulfa (Sulfonamide Antibiotics); as6 - Home Meds: 22:38 Albuterol Inhl [Active]; Ativan Oral [Active]; levothyroxine oral [Active]; as6 - PMHx: 22:38 Anemia; Anxiety; Asthma; Bipolar disorder; cardiac arrest; Hypertension; Hypothyroidism;as6 - PSHx: 22:38 Appendectomy; section; hernia repair; Tonsillectomy; as6 - Immunization history:: Client reports having NOT received the Covid vaccine. - Social history:: Smoking status: Patient denies any tobacco usage or history of. ROS: 22:48 Constitutional: Negative for fever, chills, and weight loss. pm1 22:48 Abdomen/GI: Negative for abdominal pain, nausea, vomiting, diarrhea, and constipation, Back: Negative for injury and pain, MS/Extremity: Negative for injury and deformity, Skin: Negative for injury, rash, and discoloration, Neuro: Negative for headache, weakness, numbness, tingling, and seizure. 22:48 Cardiovascular: Positive for chest pain, Negative for orthopnea, palpitations. 22:48 Respiratory: Positive for shortness of breath, Negative for cough. 22:48 All other systems are negative. Exam: 22:48 Constitutional: This is a well developed, well nourished patient who is awake, alert, pm1 and in no acute distress. Head/Face: Normocephalic, atraumatic. 22:48 Skin: Warm, dry with normal turgor. Normal color with no rashes, no lesions, and no evidence of cellulitis. MS/ Extremity: Pulses equal, no cyanosis. Neurovascular intact. Full, normal range of motion. 22:48 Cardiovascular: Exam negative for acute changes, Rate: normal, Rhythm: regular, Pulses: no pulse deficits are appreciated. 22:48 Neuro: Exam negative for acute changes, Orientation: is normal, Mentation: is normal, Motor: is normal, moves all fours. 22:48 Psych: Behavior/mood is cooperative, anxious, Affect is animated, Oriented to person, place, time. Vital Signs: 22:35 BP 137 / 88; Pulse 74; Resp 14 S; Temp 98.5(O); Pulse Ox 94% on R/A; Weight 154.22 kg as6 (R); Height 5 ft. 5 in. (165.10 cm) (R); Pain 8/10; 23:35 BP 143 / 95; Pulse 72; Resp 11 S; Pulse Ox 98% on R/A; as6 03/06 01:09 BP 141 / 91; Pulse 79; Resp 14; Pulse Ox 98% ; ll3 07/27 22:35 Body Mass Index 56.58 (154.22 kg, 165.10 cm) as6 MDM: 07/27 22:48 Patient medically screened. pm1 07/28 01:16 Data reviewed: vital signs. Data interpreted: Pulse oximetry: on room air is 98 %. pm1 Interpretation: normal. Counseling: I had a detailed discussion with the patient and/or guardian regarding: the historical points, exam findings, and any diagnostic results supporting the discharge/admit diagnosis, lab results, radiology results, the need for outpatient follow up, to return to the emergency department if symptoms worsen or persist or if there are any questions or concerns that arise at home. 07/27 22:48 Order name: Basic Metabolic Panel; Complete Time: 23:47 pm1 07/27 22:48 Order name: CBC with Diff; Complete Time: 23:24 pm1 07/27 22:48 Order name: LFT's; Complete Time: 23:47 pm1 07/27 22:48 Order name: Magnesium; Complete Time: 23:47 pm1 07/27 22:48 Order name: NT PRO-BNP; Complete Time: 23:47 pm1 07/27 22:48 Order name: PT-INR; Complete Time: 23:24 pm1 07/27 22:48 Order name: Troponin HS; Complete Time: 23:47 pm1 07/27 22:48 Order name: XRAY Chest (1 view) pm1 07/27 22:48 Order name: EKG; Complete Time: 22:49 pm1 07/27 22:48 Order name: Cardiac monitoring; Complete Time: 22:48 pm1 07/27 22:48 Order name: EKG - Nurse/Tech; Complete Time: 22:48 pm1 07/27 22:48 Order name: IV Saline Lock; Complete Time: 23:01 pm1 07/27 22:48 Order name: Labs collected and sent; Complete Time: 23:01 pm1 07/27 22:48 Order name: O2 Per Protocol; Complete Time: 22:48 pm1 07/27 22:48 Order name: O2 Sat Monitoring; Complete Time: 22:48 pm1 Administered Medications: 07/27 22:55 Drug: Ativan (LORazepam) 1 mg Route: PO; as6 07/28 01:28 Drug: Potassium Chloride 40 mEq Route: PO; ll3 01:30 Follow up: Response: Medication administered at discharge. ll3 Disposition: 01:34 Co-signature as Attending Physician, Jaylan Ortiz MD. mh7 Disposition Summary: 07/28/21 01:16 Discharge Ordered Location: Home pm1 Problem: new pm1 Symptoms: have improved pm1 Condition: Stable pm1 Diagnosis - Chest pain, unspecified pm1 Followup: pm1 - With: Emergency Department - When: As needed - Reason: Worsening of condition Followup: pm1 - With: Private Physician - When: 2 - 3 days - Reason: Recheck today's complaints, Continuance of care, Re-evaluation by your physician Discharge Instructions: - Discharge Summary Sheet pm1 - Nonspecific Chest Pain, Adult pm1 - Generalized Anxiety Disorder, Adult pm1 - Potassium Content of Foods pm1 Forms: - Medication Reconciliation Form pm1 - Thank You Letter pm1 - Antibiotic Education pm1 - Prescription Opioid Use pm1 Prescriptions: - Ativan 0.5 mg Oral Tablet - take 1 tablet by ORAL route every 8 hours As needed; 6 tablet; Refills: 0, pm1 Product Selection Permitted Signatures: Dispatcher [employer] EDPR Andrés Gilmore, SHERIDAN SENIOR NET DEVELOPER pm1 Jaylan Ortiz MD MD mh7 Smooth Wilson RN RN as6 Naomy Boswell RN RN ll3
[2021-07-28] MEDS ORDERED: POTASSIUM CL SA 10 MEQ TAB PO ONE (01:25)
[2021-07-28 02:06] VITALS: TEMP 98.5
[2021-07-28 02:07] VITALS: O2SAT 98
[2021-07-28 02:08] VITALS: BP 141/91
--- NOTE | 2021-07-28 07:56 | RAD REPORT ---
EXAM DESCRIPTION: RAD - Chest Single View - 07/27/2021 11:08 pm CLINICAL HISTORY: CHEST PAIN COMPARISON: Portable 07/05/2021, CT chest 07/05/2021 TECHNIQUE: AP portable chest image was obtained 07/27/2021 11:08 pm . FINDINGS: Lung volumes are low accentuating heart, vasculature and lung markings. Large body habitus further contributes to exam limitations. No peripheral mass or consolidation is identified. No significant ground-glass opacification is ident ifiable. Heart and vasculature are normal. No measurable pleural effusion and no pneumothorax. No acu te bony abnormality seen. No acute aortic findings suspected. IMPRESSION: No acute cardiopulmonary process.
--- NOTE | 2021-07-28 09:23 | EKG ---
Test Date: 2021-07-27 Test Time: 22:34:51 Fountain Vending Mechanic: MALLY MEASUREMENT RESULTS: Intervals: Rate: 71 MT: 148 QRSD: 108 QT: 432 QTc: 469 [place]: P: 41 MT: 148 QRS: 18 T: 1 INTERPRETIVE STATEMENTS: Normal sinus rhythm Normal ECG Compared to ECG 07/16/2021 17:37:13 Myocardial infarct finding no longer present Electronically Signed On 07-28-21 09:22:44 REHAB ASSISTANT by Dagoberto Ramos
== END 2021-07-28 01:31 | disposition home or self-care (01) ==
LOC: ER 22:26
DX: R07.9 Chest pain, unspecified (principal); F41.9 Anxiety disorder, unspecified; I10 Essential (primary) hypertension; Z88.0 Allergy status to penicillin; Z88.1 Allergy status to other antibiotic agents; Z88.3 Allergy status to other anti-infective agents; Z88.2 Allergy status to sulfonamides
CPT/HCPCS: 36415; 71045; 80048; 80076; 83735; 83880; 84484; 85025; 85610; 93005; 99284

== ENCOUNTER 2021-10-04 18:07 | Emergency (ER) | payer SELFPAY ==
--- OUTSIDE RECORDS SUMMARY | 2021-10-04 18:10 | XMS REPORT | Continuity of Care Document ---
:1985 Author Organization [facility] t Address [address] [place] [address] Dr. Marshall [address] [place] [id number] Care Team Providers Name Role Phone Unavailable Unavailable Unavailable Problems This patient has no known problems. Allergies, Adverse Reactions, Alerts This patient has no known allergies or adverse reactions. Medications This patient has no known medications. Procedures This patient has no known procedures. Results This patient has no known results.
[2021-10-04 19:13] LABS: Urine Blood 3+ (Negative); Urine Glucose Negative (Negative); Urine Protein 1+ (Negative); Urine Specific Gravity 1.025 (1.005-1.030)
[2021-10-04 19:29] LABS: Absolute Lymphocytes (CBC) 4.8 K/uL (0.7-4.9); Hematocrit 34.6 % (36.0-45.0); Lymphocytes % 55.6 % (15.3-44.8); MPV 7.9 fL (7.6-11.3); RBC Red Blood Cell Count 3.79 M/uL (3.86-4.86)
[2021-10-04 19:31] LABS: Urine Specific Gravity/Preg 1.025 (1.005-1.030)
[2021-10-04 19:36] LABS: Albumin 3.2 g/dL (3.4-5.0); Bilirubin Total 0.4 mg/dL (0.2-1.0); Potassium 3.7 mmol/L (3.5-5.1); Protein, Total 6.2 g/dL (6.4-8.2); Troponin High Sensitivity 7.4 pg/mL (<58.9)
--- NOTE | 2021-10-04 19:49 | RAD REPORT ---
EXAM DESCRIPTION: RAD - Chest Single View - 10/04/2021 7:42 pm CLINICAL HISTORY: CHEST PAIN Chest pain. COMPARISON: Chest Single View dated 07/27/2021; Chest Single View dated 07/05/2021; Chest Single View d ated 06/27/2021; Chest Single View dated 06/26/2021 FINDINGS: Portable technique limits examination quality. The lungs are grossly clear. The heart is normal in size. No displaced fractures. IMPRESSION: No acute intrathoracic process suspected.
--- NOTE | 2021-10-04 20:01 | RAD REPORT ---
EXAM DESCRIPTION: CTAbdomen Pelvis W Contrast - 10/04/2021 7:54 pm CLINICAL HISTORY: Abdominal pain. Epigastric pain COMPARISON: Abdomen Pelvis W Contrast dated 06/09/2021; Abdomen Pelvis W Contrast dated 02/23/2020 ; Abdomen Pelvis W Contrast dated 10/11/2017 TECHNIQUE: Biphasic CT imaging of the abdomen and pelvis was performed with 100 ml non-ionic IV cont rast. All CT scans are performed using dose optimization technique as appropriate and may include automated exposure control or mA/KV adjustment according to patient size. FINDINGS: The lung bases are clear. The liver, spleen, pancreas, adrenal glands and kidneys are within normal limits. No bowel obstruction, free air, free fluid or abscess. Significant inflammation is seen involving the cecum, ascending colon, transverse colon likely representing colitis. Appendectomy. No evidence of significant lymphadenopathy. No suspicious bony findings. IMPRESSION: Moderate right-sided colitis pattern is present.
--- NOTE | 2021-10-04 20:17 | ER ---
Nurse's Notes [facility] Name: Rachael Knox Age: 36 yrs Sex: Female : 1985 Arrival Date: 10/04/2021 Time: 18:08 Bed 19 Private MD: Diagnosis: Chest pain, unspecified;Colitis Presentation: 10/04 18:43 Chief complaint: Patient states: Upper ABD pain x 1 week with N/D; Chest pressure near vg1 left side of chest x 2 days. Coronavirus screen: Vaccine status: Patient reports being unvaccinated. Client denies travel out of the [place] in the last 14 days. Ebola Screen: Patient denies exposure to infectious person. Patient denies travel to an Ebola-affected area in the 21 days before illness onset. Initial Sepsis Screen: Does the patient meet any 2 criteria? No. Patient's initial sepsis screen is negative. Does the patient have a suspected source of infection? No. Patient's initial sepsis screen is negative. Risk Assessment: Do you want to hurt yourself or someone else? Patient reports no desire to harm self or others. Onset of symptoms was September 27, 2021. 18:43 Method Of Arrival: Ambulatory vg1 18:43 Acuity: DARSHAN 3 vg1 Triage Assessment: 18:47 General: Appears uncomfortable, Behavior is calm, cooperative. Pain: Complains of pain vg1 in anterior aspect of left upper chest and upper ABD Pain currently is 10 out of 10 on a pain scale. Pain began x 1 week. GI: Abdomen is round non-distended, Reports diarrhea, nausea. 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 - Social history:: Smoking status: Patient denies any tobacco usage or history of. Screenin:10 Abuse screen: Denies threats or abuse. Denies injuries from another. Nutritional renny screening: No deficits noted. Tuberculosis screening: No symptoms or risk factors identified. Fall Risk None identified. Assessment: 20:54 Reassessment: The pt was recv'd to room #19 \\T\\ 1958. A dc order was recv'd at 2030, renny along with a list of medications for the pt. I spoke with the provider and informed him that I will get the orders completed honey. IV and meds infusing. 21:10 GI: Bowel sounds present X 4 quads. Abd is soft and non tender. renny Vital Signs: 18:43 BP 137 / 89; Pulse 90; Resp 18; Temp 98.8(TE); Pulse Ox 96% on R/A; Weight 148.23 kg; vg1 Height 5 ft. 5 in. (165.10 cm); Pain 10/10; 21:09 BP 121 / 73; Pulse 76; Resp 18; Temp 97.3; Pulse Ox 100% on R/A; Pain 2/10; renny 18:43 Body Mass Index 54.38 (148.23 kg, 165.10 cm) vg1 ED Course: 18:08 Patient arrived in ED. as 18:37 Andrés Gilmore NP is PHCP. pm1 18:37 Rajan Samuel MD is Attending Physician. pm1 18:46 Triage completed. vg1 18:47 Arm band placed on. vg1 19:05 Troponin High Sensitivity Sent. mh5 19:05 Initial lab(s) drawn, by mt, sent to lab. Inserted saline lock: 20 gauge in right 5 antecubital area, using aseptic technique. Blood collected. 19:08 Patient has correct armband on for positive identification. Bed in low position. Call [facility] light in reach. gambling monitor on. Pulse ox on. NIBP on. 19:44 Chest Single View XRAY In Process Unspecified. EDMS 19:56 CT Abd/Pelvis - IV Contrast Only In Process Unspecified. EDMS 20:23 Sarah Sullivan, RN is Primary Nurse. renny 21:10 No provider procedures requiring assistance completed. renny 21:29 COVID-19 SARS RT PCR (Document "Date of Onset" if Symptomatic) Sent. renny 21:30 intact, bleeding controlled, No redness/swelling at site. Pressure dressing applied. renny Administered Medications: 20:47 Drug: morphine 4 mg Route: IVP; Site: right forearm; renny 21:29 Follow up: Response: No adverse reaction renny 20:47 Drug: Zofran (Ondansetron) 4 mg Route: IVP; Site: right forearm; renny 21:28 Follow up: Response: No adverse reaction renny 20:47 Drug: NS 0.9% 1000 ml Route: IV; Rate: 1000 ml; Site: right forearm; renny 21:27 Follow up: IV Status: Completed infusion; IV Intake: 1000ml renny 20:48 Drug: Flagyl (metroNIDAZOLE) 500 mg Volume: 100 ml; Route: IVPB; Rate: 200 ml/hr; renny Infused Over: 30 mins; Site: right forearm; 21:29 Follow up: IV Status: Completed infusion; IV Intake: 100ml renny 20:48 Drug: Cipro (ciprofloxacin) 500 mg Route: PO; renny 21:29 Follow up: Response: No adverse reaction renny Medication: 21:10 VIS not applicable for this client. renny Intake: 21:27 IV: 1000ml; Total: 1000ml. renny 21:29 IV: 100ml; Total: 1100ml. renny Outcome: 20:16 Discharge ordered by MD. pm1 21:11 Condition: stable renny 21:29 Discharged to home ambulatory, with family. renny 21:29 Discharge instructions given to patient, Instructed on discharge instructions, follow up and referral plans. medication usage, Demonstrated understanding of instructions, follow-up care, medications, Prescriptions given X 3. 21:30 Patient left the ED. renny Signatures: Dispatcher [employer] Bridget Tamayo Patrick, NP AMMUNITION OFFICER pm1 Sandy Kwon Shasta Toscano, RN RN vg1 Sarah Sullivan RN RN renny
--- NOTE | 2021-10-04 20:17 | EDPHYS ---
Physician Documentation [facility] Name: Rachael Knox Age: 36 yrs Sex: Female : 1985 Arrival Date: 10/04/2021 Time: 18:08 Bed 19 Private MD: ED Physician Rajan Samuel HPI: 10/04 18:49 This 36 yrs old Female presents to ER via Ambulatory with complaints of pm1 Abdominal Pain, Chest Pressure, Nausea. 18:49 The patient presents with abdominal pain in the upper abdomen. Onset: The pm1 symptoms/episode began/occurred 1 week(s) ago. The symptoms do not radiate. Associated signs and symptoms: Pertinent positives: diarrhea, nausea, chest pain for 2 days, Pertinent negatives: dysuria, fever. Modifying factors: The symptoms are alleviated by nothing, the symptoms are aggravated by nothing. Severity of pain: in the emergency department the pain is unchanged. The patient has not experienced similar symptoms in the past. The patient has not recently seen a physician. 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 - Social history:: Smoking status: Patient denies any tobacco usage or history of. ROS: 18:49 Constitutional: Negative for fever, chills, and weight loss. pm1 18:49 Respiratory: Negative for shortness of breath, cough, wheezing, and pleuritic chest pain. 18:49 Back: Negative for injury and pain, : Negative for injury, bleeding, discharge, and swelling, MS/Extremity: Negative for injury and deformity, Skin: Negative for injury, rash, and discoloration, Neuro: Negative for headache, weakness, numbness, tingling, and seizure. 18:49 Cardiovascular: Positive for chest pain, Negative for edema, palpitations. 18:49 Abdomen/GI: Positive for abdominal pain, nausea, diarrhea, Negative for vomiting, constipation. 18:49 All other systems are negative. Exam: 18:49 Constitutional: This is a well developed, well nourished patient who is awake, alert, pm1 and in no acute distress. Head/Face: Normocephalic, atraumatic. 18:49 Skin: Warm, dry with normal turgor. Normal color with no rashes, no lesions, and no evidence of cellulitis. MS/ Extremity: Pulses equal, no cyanosis. Neurovascular intact. Full, normal range of motion. 18:49 Cardiovascular: Exam negative for acute changes, Rate: normal, Rhythm: regular, Pulses: no pulse deficits are appreciated, Heart sounds: normal, normal S1and S2. 18:49 Respiratory: Exam negative for acute changes, respiratory distress, shortness of breath, Breath sounds: are clear throughout. 18:49 Abdomen/GI: Inspection: obese Palpation: soft, in all quadrants, mild abdominal tenderness, in the right upper quadrant and left upper quadrant. 18:49 Back: pain, that is mild, of the right low back, normal spinal alignment noted. 18:49 Neuro: Exam negative for acute changes, Orientation: is normal, Mentation: is normal, Motor: is normal, moves all fours. Vital Signs: 18:43 BP 137 / 89; Pulse 90; Resp 18; Temp 98.8(TE); Pulse Ox 96% on R/A; Weight 148.23 kg; vg1 Height 5 ft. 5 in. (165.10 cm); Pain 10/10; 21:09 BP 121 / 73; Pulse 76; Resp 18; Temp 97.3; Pulse Ox 100% on R/A; Pain 2/10; renny 18:43 Body Mass Index 54.38 (148.23 kg, 165.10 cm) vg1 MDM: 19:05 Patient medically screened. pm1 19:29 Data reviewed: vital signs. Data interpreted: Pulse oximetry: on room air is 96 %. pm1 Interpretation: normal. 20:16 Counseling: I had a detailed discussion with the patient and/or guardian regarding: the pm1 historical points, exam findings, and any diagnostic results supporting the discharge/admit diagnosis, lab results, radiology results, the need for outpatient follow up, to return to the emergency department if symptoms worsen or persist or if there are any questions or concerns that arise at home. 10/04 18:59 Order name: CBC with Diff pm1 10/04 18:59 Order name: CMP; Complete Time: 19:43 pm1 10/04 18:59 Order name: Lipase; Complete Time: 19:43 pm1 10/04 18:59 Order name: Troponin High Sensitivity; Complete Time: 19:43 pm1 10/04 18:59 Order name: Flu pm1 10/04 18:59 Order name: COVID-19 SARS RT PCR (Document "Date of Onset" if Symptomatic) pm1 10/04 18:59 Order name: CT Abd/Pelvis - IV Contrast Only; Complete Time: 20:04 pm1 10/04 18:59 Order name: Chest Single View XRAY; Complete Time: 19:52 pm1 10/04 19:13 Order name: Urine Dipstick-Ancillary; Complete Time: 19:14 EDMS 10/04 19:22 Order name: Urine --Ancillary (enter results); Complete Time: 19:34 [facility] 10/04 20:56 Order name: Manual Differential EDID 10/04 18:59 Order name: IV Saline Lock; Complete Time: 19:05 pm1 10/04 18:59 Order name: Labs collected and sent; Complete Time: 19:05 pm1 10/04 18:59 Order name: Urine Dipstick-Ancillary (obtain specimen); Complete Time: 19:31 pm1 10/04 18:59 Order name: Urine Test (obtain specimen) 1 10/04 18:59 Order name: EKG; Complete Time: 19:00 pm1 10/04 18:59 Order name: EKG - Nurse/Tech pm1 Administered Medications: 20:47 Drug: morphine 4 mg Route: IVP; Site: right forearm; renny 21:29 Follow up: Response: No adverse reaction renny 20:47 Drug: Zofran (Ondansetron) 4 mg Route: IVP; Site: right forearm; renny 21:28 Follow up: Response: No adverse reaction renny 20:47 Drug: NS 0.9% 1000 ml Route: IV; Rate: 1000 ml; Site: right forearm; renny 21:27 Follow up: IV Status: Completed infusion; IV Intake: 1000ml renny 20:48 Drug: Flagyl (metroNIDAZOLE) 500 mg Volume: 100 ml; Route: IVPB; Rate: 200 ml/hr; renny Infused Over: 30 mins; Site: right forearm; 21:29 Follow up: IV Status: Completed infusion; IV Intake: 100ml renyn 20:48 Drug: Cipro (ciprofloxacin) 500 mg Route: PO; renny 21:29 Follow up: Response: No adverse reaction renny Disposition Summary: 10/04/21 20:16 Discharge Ordered Location: Home pm1 Problem: new pm1 Symptoms: have improved pm1 Condition: Stable pm1 Diagnosis - Chest pain, unspecified pm1 - Colitis pm1 Followup: pm1 - With: Emergency Department - When: As needed - Reason: Worsening of condition Followup: pm1 - With: Private Physician - When: 2 - 3 days - Reason: Recheck today's complaints, Continuance of care, Re-evaluation by your physician Discharge Instructions: - Discharge Summary Sheet pm1 - Nonspecific Chest Pain, Adult pm1 - Colitis pm1 Forms: - Medication Reconciliation Form pm1 - Thank You Letter pm1 - Antibiotic Education pm1 - Prescription Opioid Use pm1 - Work release form pm1 Prescriptions: - Flagyl 500 mg Oral Tablet - take 1 tablet by ORAL route every 8 hours for 10 days; 30 tablet; Refills: 0, pm1 Product Selection Permitted - Cipro 500 mg Oral Tablet - take 1 tablet by ORAL route every 12 hours for 10 days; 20 tablet; Refills: 0, pm1 Product Selection Permitted - ondansetron 4 mg Oral tablet,disintegrating - take 1 tablet by ORAL route every 8 hours As needed; 12 tablet; Refills: 0, pm1 Product Selection Permitted - Tylenol-Codeine #3 300 mg-30 mg Oral - take 2 tablet by ORAL route every 6 hours As needed; 20 tablet; Refills: 0, pm1 Product Selection Permitted Signatures: Dispatcher [employer] Andrés Slater NP GLYCERINE PLANT OPERATOR pm1 Shasta Rivera RN RN 1 Sarah Sullivan RN RN renny Corrections: (The following items were deleted from the chart) 20:17 20:16 Abdominal pain, unspecified pm1 pm1
[2021-10-04] MEDS ORDERED: CIPROFLOXACIN HCL 500 MG TAB ONE (20:35)
[2021-10-04] MEDS ORDERED: MORPHINE 4 MG/ML SYR ONE (20:35)
[2021-10-04] MEDS ORDERED: NA CHLORIDE 0.9% 1,000 ML ONE (20:36)
[2021-10-04] MEDS ORDERED: METRONIDAZOLE 500mg IVPB 500 MG/100 ML BAG IV ONE (20:36)
[2021-10-04] MEDS ORDERED: ONDANSETRON 4 MG/2 ML VIAL ONE (20:36)
[2021-10-04 20:56] LABS: Blood Morphology Comment NOT SEEN (NOT SEEN); Platelet Estimate ADEQ
[2021-10-05 13:23] VITALS: BP 121/73; TEMP 97.3; O2SAT 100
--- NOTE | 2021-10-05 14:57 | EKG ---
Test Date: 2021-10-04 Test Time: 20:34:14 Ela Teacher: MALLY MEASUREMENT RESULTS: Intervals: Rate: 74 CO: 134 QRSD: 102 QT: 464 QTc: 515 [place]: P: 38 CO: 134 QRS: 14 T: 69 INTERPRETIVE STATEMENTS: Normal sinus rhythm Low voltage QRS Nonspecific T wave abnormality Prolonged QT Abnormal ECG Compared to ECG 07/27/2021 22:34:51 Low QRS voltage now present T-wave abnormality now present Prolonged QT interval now present Electronically Signed On 10-05-21 14:54:16 CDT by Jeb Rodas
== END 2021-10-04 21:30 | disposition home or self-care (01) ==
LOC: ER 18:07
DX: K52.9 Noninfective gastroenteritis and colitis, unspecified (principal); I10 Essential (primary) hypertension; Z88.0 Allergy status to penicillin; Z88.1 Allergy status to other antibiotic agents; Z88.2 Allergy status to sulfonamides; Z88.3 Allergy status to other anti-infective agents
CPT/HCPCS: 36415; 71045; 74177; 80053; 81003; 81025; 83690; 84484; 85025; 87804; 93005; 96365; 96375; 99284; J2405; J3490; J7030; Q9967; U0003

== ENCOUNTER 2021-10-06 12:24 | Emergency (ER) | payer SELFPAY ==
--- OUTSIDE RECORDS SUMMARY | 2021-10-06 12:26 | XMS REPORT | Continuity of Care Document ---
:1985 Author Organization [facility] t Address [address] [place] [address] Dr. Marshall [address] [place] [id number] Care Team Providers Name Role Phone Unavailable Unavailable Unavailable Problems This patient has no known problems. Allergies, Adverse Reactions, Alerts This patient has no known allergies or adverse reactions. Medications This patient has no known medications. Procedures This patient has no known procedures. Results This patient has no known results.
[2021-10-06] MEDS ORDERED: MORPHINE 4 MG/ML SYR ONE ×2 (13:46→16:22)
[2021-10-06] MEDS ORDERED: NA CHLORIDE 0.9% 1,000 ML ONE (13:46)
[2021-10-06] MEDS ORDERED: ONDANSETRON 4 MG/2 ML VIAL ONE (13:46)
[2021-10-06 13:54] LABS: Absolute Lymphocytes (CBC) 5.1 K/uL (0.7-4.9); Hematocrit 34.2 % (36.0-45.0); Lymphocytes % 61.3 % (15.3-44.8); MPV 7.7 fL (7.6-11.3); RBC Red Blood Cell Count 3.67 M/uL (3.86-4.86)
[2021-10-06 14:04] LABS: Albumin 2.9 g/dL (3.4-5.0); Bilirubin Total 0.4 mg/dL (0.2-1.0); Potassium 3.7 mmol/L (3.5-5.1)
--- NOTE | 2021-10-06 14:46 | RAD REPORT ---
EXAM DESCRIPTION: CT - Abdomen Pelvis W Contrast - 10/06/2021 2:27 pm CLINICAL HISTORY: Abdominal pain COMPARISON: October 04, 2021 TECHNIQUE: Computed axial tomography of the abdomen pelvis was obtained. 100 cc Isovue-300 was admin istered intravenously. Oral contrast was not requested which limits evaluation of bowel. All CT scans are performed using dose optimization technique as appropriate and may include automated exposure control or mA/KV adjustment according to patient size. FINDINGS: Fatty liver The spleen measures 16 centimeters. The pancreas, adrenal and kidneys appear unremarkable. There is no evidence of diverticulitis. The wall of the transverse and right colon moderately to markedly thickened. Wall of the terminal ile um thickened. No free air. No pneumatosis intestinalis is seen Small amount of free fluid A 4.4 centimeter right ovarian cyst IMPRESSION: Moderate to marked colitis Ileitis Moderate splenomegaly 4.4 centimeter right ovarian cyst
[2021-10-06 15:35] LABS: Blood Morphology Comment NOTED (NOT SEEN); Poikilocytosis 2+
[2021-10-06 15:36] LABS: Platelet Estimate ADEQ
--- NOTE | 2021-10-06 16:16 | ER ---
Nurse's Notes [facility] Name: Rachael Knox Age: 36 yrs Sex: Female : 1985 Arrival Date: 10/06/2021 Time: 12:25 Bed DIS2 Private MD: Diagnosis: Colitis Presentation: 10/06 13:08 Chief complaint: Patient states: still having RLQ pain, was seen here a couple days iw ago. Coronavirus screen: At this time, the client does not indicate any symptoms associated with coronavirus-19. Ebola Screen: Patient negative for fever greater than or equal to 101.5 degrees Fahrenheit, and additional compatible Ebola Virus Disease symptoms Patient denies exposure to infectious person. Initial Sepsis Screen: Does the patient meet any 2 criteria? No. Patient's initial sepsis screen is negative. Does the patient have a suspected source of infection? No. Patient's initial sepsis screen is negative. Risk Assessment: Do you want to hurt yourself or someone else? Patient reports no desire to harm self or others. Onset of symptoms was October 06, 2021. 13:08 Method Of Arrival: Ambulatory iw 13:08 Acuity: DARSHAN 3 iw Historical: - Allergies: 13:09 Azithromycin; iw 13:09 Bactrim; iw 13:09 mycins; iw 13:09 PENICILLINS; iw 13:09 Sulfa (Sulfonamide Antibiotics); iw - PMHx: 13:09 Anxiety; Anemia; Asthma; Bipolar disorder; cardiac arrest; Hypertension; Hypothyroidism;iw - PSHx: 13:09 Appendectomy; section; hernia repair; Tonsillectomy; iw Screenin:26 Abuse screen: Denies threats or abuse. Denies injuries from another. Nutritional iw screening: No deficits noted. Tuberculosis screening: No symptoms or risk factors identified. Fall Risk None identified. Assessment: 16:26 Reassessment: Patient appears in no apparent distress at this time. Patient and/or iw family updated on plan of care and expected duration. Pain level reassessed. Patient is alert, oriented x 3, equal unlabored respirations, skin warm/dry/pink. Patient states feeling better. Patient states symptoms have improved. Vital Signs: 13:09 BP 101 / 66; Pulse 79; Resp 16; Temp 98.1; Pulse Ox 96% on R/A; Weight 146.06 kg; iw Height 5 ft. 5 in. (165.10 cm); 13:09 Body Mass Index 53.58 (146.06 kg, 165.10 cm) iw ED Course: 12:25 Patient arrived in ED. am2 12:53 Andrés Gilmore NP is PHCP. pm1 12:53 Tiny Pyle MD is Attending Physician. pm1 13:09 Triage completed. iw 13:09 Arm band placed on. iw 13:31 Initial lab(s) drawn, by me, sent to lab. Inserted saline lock: 22 gauge in right tm3 antecubital area, using aseptic technique. 14:00 Anabella King RN is Primary Nurse. iw 14:28 CT Abd/Pelvis - IV Contrast Only In Process Unspecified. EDMS 16:26 No provider procedures requiring assistance completed. IV discontinued, intact, iw bleeding controlled, No redness/swelling at site. Pressure dressing applied. Administered Medications: 13:46 Drug: morphine 4 mg Route: IVP; Site: right antecubital; iw 13:47 Drug: Zofran (Ondansetron) 4 mg Route: IVP; Site: right antecubital; iw 14:01 Drug: NS 0.9% 1000 ml Route: IV; Rate: 1000 ml; Site: right antecubital; iw 15:00 Follow up: IV Status: Completed infusion iw 16:16 Drug: morphine 4 mg Route: IVP; Site: right antecubital; iw Outcome: 16:15 Discharge ordered by . pm1 16:27 Discharged to home ambulatory, with family. iw 16:27 Condition: good 16:27 Discharge instructions given to patient, Instructed on discharge instructions, follow up and referral plans. medication usage, Demonstrated understanding of instructions, follow-up care, medications, Prescriptions given X 1. 16:27 Patient left the ED. iw Signatures: Dispatcher [employer] EDMS Nba Guido tm3 Anabella King RN RN iw Andrés Gilmore, [facility] NURSING HOME PHYSICIAN pm1 Jill Arellano am2
--- NOTE | 2021-10-06 16:16 | EDPHYS ---
Physician Documentation [facility] Name: Rachael Knox Age: 36 yrs Sex: Female : 1985 Arrival Date: 10/06/2021 Time: 12:25 Bed DIS2 Private MD: ED Physician Tiny Pyle HPI: 10/06 13:15 This 36 yrs old Female presents to ER via Ambulatory with complaints of pm1 Abdominal Pain. 13:15 The patient presents with abdominal pain in the upper abdomen, right lower quadrant. pm1 13:15 Onset: The symptoms/episode began/occurred 9 day(s) ago. The symptoms do not radiate. pm1 Associated signs and symptoms: Pertinent positives: diarrhea, Pertinent negatives: nausea and vomiting, dysuria, fever. The symptoms are described as achy, constant. Modifying factors: The symptoms are alleviated by nothing, the symptoms are aggravated by nothing. Severity of pain: in the emergency department the pain is actually worse. The patient has been recently seen at the [facility] Emergency Department, for similar complaints labs were performed, CT scan was performed, was given a prescription for antibiotics, was given a prescription for pain medications, was given a prescription for an antiemetic, 2 days ago for the same complaint diagnosed with colitis. Historical: - Allergies: 13:09 Azithromycin; iw 13:09 Bactrim; iw 13:09 mycins; iw 13:09 PENICILLINS; iw 13:09 Sulfa (Sulfonamide Antibiotics); iw - PMHx: 13:09 Anxiety; Anemia; Asthma; Bipolar disorder; cardiac arrest; Hypertension; Hypothyroidism;iw - PSHx: 13:09 Appendectomy; section; hernia repair; Tonsillectomy; iw ROS: 13:15 Constitutional: Negative for fever, chills, and weight loss, Cardiovascular: Negative pm1 for chest pain, palpitations, and edema, Respiratory: Negative for shortness of breath, cough, wheezing, and pleuritic chest pain. 13:15 Back: Negative for injury and pain, : Negative for injury, bleeding, discharge, and swelling, MS/Extremity: Negative for injury and deformity, Skin: Negative for injury, rash, and discoloration, Neuro: Negative for headache, weakness, numbness, tingling, and seizure. 13:15 Abdomen/GI: Positive for abdominal pain, diarrhea, Negative for nausea and vomiting, rectal bleeding. 13:15 All other systems are negative. Exam: 13:15 Constitutional: This is a well developed, well nourished patient who is awake, alert, pm1 and in no acute distress. Head/Face: Normocephalic, atraumatic. 13:15 Back: No spinal tenderness. No costovertebral tenderness. Full range of motion. Skin: Warm, dry with normal turgor. Normal color with no rashes, no lesions, and no evidence of cellulitis. MS/ Extremity: Pulses equal, no cyanosis. Neurovascular intact. Full, normal range of motion. 13:15 Eyes: Exam is negative for acute changes, Periorbital structures: no acute changes, Extraocular movements: no acute changes, Sclera: no acute changes, icterus, is not appreciated. 13:15 ENT: Exam is negative for acute changes, Mouth: no acute changes, Lips: normal, moist, Oral mucosa: normal, pink and intact, moist. 13:15 Cardiovascular: Exam negative for acute changes, Rate: normal, Rhythm: regular, Pulses: no pulse deficits are appreciated. 13:15 Respiratory: Exam negative for acute changes, respiratory distress, shortness of breath. 13:15 Abdomen/GI: Inspection: abdomen appears normal, Palpation: soft, in all quadrants, mild abdominal tenderness, in the right upper quadrant and left upper quadrant. 13:15 Neuro: Exam negative for acute changes, Orientation: is normal, Mentation: is normal, Motor: is normal, moves all fours. Vital Signs: 13:09 BP 101 / 66; Pulse 79; Resp 16; Temp 98.1; Pulse Ox 96% on R/A; Weight 146.06 kg; iw Height 5 ft. 5 in. (165.10 cm); 13:09 Body Mass Index 53.58 (146.06 kg, 165.10 cm) iw MDM: 13:10 Patient medically screened. pm1 15:56 Physician consultation: Garo Sutton MD regarding patient's condition, reviewed labs pm1 and CT findings from ER visit today and ER visit two days ago. Patient does not currently meet admission criteria and recommends discharge with continuation of antibiotics. Will discharge the patient home with tramadol. Then discussed with patient my conversation with hospitalist and patient understands. Discussed return precautions. 16:09 Data reviewed: vital signs. Data interpreted: Pulse oximetry: on room air is 96 %. pm1 Interpretation: normal. 10/06 13:14 Order name: CBC with Diff; Complete Time: 15:37 pm1 10/06 13:14 Order name: CMP; Complete Time: 14:14 pm1 10/06 13:14 Order name: Lipase; Complete Time: 14:14 pm1 10/06 13:14 Order name: CT Abd/Pelvis - IV Contrast Only; Complete Time: 14:51 pm1 10/06 15:36 Order name: Manual Differential; Complete Time: 15:37 EDMS 10/06 13:14 Order name: IV Saline Lock; Complete Time: 14:40 pm1 10/06 13:14 Order name: Labs collected and sent; Complete Time: 14:40 pm1 10/06 13:14 Order name: Urine Dipstick-Ancillary (obtain specimen) pm1 10/06 13:14 Order name: Urine Test (obtain specimen) pm1 Administered Medications: 13:46 Drug: morphine 4 mg Route: IVP; Site: right antecubital; iw 13:47 Drug: Zofran (Ondansetron) 4 mg Route: IVP; Site: right antecubital; iw 14:01 Drug: NS 0.9% 1000 ml Route: IV; Rate: 1000 ml; Site: right antecubital; iw 15:00 Follow up: IV Status: Completed infusion iw 16:16 Drug: morphine 4 mg Route: IVP; Site: right antecubital; iw Disposition Summary: 10/06/21 16:15 Discharge Ordered Location: Home pm1 Problem: new pm1 Symptoms: have improved pm1 Condition: Stable pm1 Diagnosis - Colitis pm1 Followup: pm1 - With: Emergency Department - When: As needed - Reason: Recheck today's complaints, Continuance of care, Re-evaluation by your physician Discharge Instructions: - Discharge Summary Sheet pm1 - Clear Liquid Diet, Adult pm1 - Colitis pm1 Forms: - Medication Reconciliation Form pm1 - Work release form iw - Thank You Letter pm1 - Antibiotic Education pm1 - Prescription Opioid Use pm1 Prescriptions: - Tramadol 50 mg Oral Tablet - take 1 tablet by ORAL route every 8 hours as needed; 12 tablet; Refills: 0, pm1 Product Selection Permitted Signatures: Dispatcher [employer] Anabella Saini RN RN iw Andrés Gilmore, LINE CLEARANCE FOREMAN LINE CLEARANCE FOREMAN pm1
[2021-10-06 16:34] VITALS: BP 101/66; TEMP 98.1; O2SAT 96
== END 2021-10-06 16:27 | disposition home or self-care (01) ==
LOC: ER 12:24
DX: K52.9 Noninfective gastroenteritis and colitis, unspecified (principal); I10 Essential (primary) hypertension; F31.9 Bipolar disorder, unspecified; Z88.0 Allergy status to penicillin; Z88.1 Allergy status to other antibiotic agents; Z88.2 Allergy status to sulfonamides; Z88.3 Allergy status to other anti-infective agents
CPT/HCPCS: 36415; 74177; 80053; 83690; 85025; 96361; 96374; 96375; 99284; J2405; J7030; Q9967

== ENCOUNTER 2021-10-07 10:49 | Emergency (ER) | payer SELFPAY ==
--- OUTSIDE RECORDS SUMMARY | 2021-10-07 10:53 | XMS REPORT | Continuity of Care Document ---
:1985 Author Organization [facility] t Address [address] [place] [address] Dr. Marshall [address] [place] [id number] Care Team Providers Name Role Phone Unavailable Unavailable Unavailable Problems This patient has no known problems. Allergies, Adverse Reactions, Alerts This patient has no known allergies or adverse reactions. Medications This patient has no known medications. Procedures This patient has no known procedures. Results This patient has no known results.
[2021-10-07] MEDS ORDERED: MORPHINE 4 MG/ML SYR ONE (12:15)
[2021-10-07] MEDS ORDERED: ONDANSETRON 4 MG/2 ML VIAL ONE (12:15)
[2021-10-07 12:46] LABS: Absolute Lymphocytes (CBC) 4.9 K/uL (0.7-4.9); Hematocrit 33.9 % (36.0-45.0); Lymphocytes % 57.9 % (15.3-44.8); MPV 7.6 fL (7.6-11.3); RBC Red Blood Cell Count 3.61 M/uL (3.86-4.86)
[2021-10-07 12:56] LABS: Albumin 3.1 g/dL (3.4-5.0); Bilirubin Total 0.4 mg/dL (0.2-1.0); Potassium 3.7 mmol/L (3.5-5.1); Protein, Total 6.1 g/dL (6.4-8.2)
[2021-10-07 13:29] LABS: Blood Morphology Comment NOTED (NOT SEEN); Platelet Estimate ADEQ; Stomatocytes 2+
[2021-10-07] MEDS ORDERED: METRONIDAZOLE 500mg IVPB 500 MG/100 ML BAG IV ONE (16:34)
[2021-10-07] MEDS ORDERED: CIPROFLOXACIN 400mg IV 400 MG/200 ML BAG IV ONE (16:34)
[2021-10-07] MEDS ORDERED: DICYCLOMINE HCL 20 MG/2 ML AMP IM ONE (18:23)
--- NOTE | 2021-10-07 19:19 | ER ---
Nurse's Notes [facility] Name: Rachael Knox Age: 36 yrs Sex: Female : 1985 Arrival Date: 10/07/2021 Time: 10:50 Bed 10 Private MD: Diagnosis: Colitis Presentation: 10/07 11:05 Ebola Screen: Patient denies travel to an Ebola-affected area in the 21 days before ll1 illness onset. Risk Assessment: Do you want to hurt yourself or someone else? Patient reports no desire to harm self or others. 11:05 Method Of Arrival: EMS ll1 11:05 Acuity: DARSHAN 3 ll1 11:07 Chief complaint: Patient states: Abd pain with N/V continues since last visit here (1 ll1 week so far). Taking meds as prescribed, just not getting better. Coronavirus screen: Vaccine status: Patient reports being unvaccinated. Client denies travel out of the [place] in the last 14 days. At this time, the client does not indicate any symptoms associated with coronavirus-19. Initial Sepsis Screen: Does the patient meet any 2 criteria? No. Patient's initial sepsis screen is negative. Does the patient have a suspected source of infection? Yes: Acute abdominal pain. Onset of symptoms was September 30, 2021. Triage Assessment: 11:06 General: Appears uncomfortable, Behavior is cooperative, appropriate for age. Pain: ll1 Complains of pain in abdomen Quality of pain is described as aching, crampy. GI: Reports lower abdominal pain, upper abdominal pain, diarrhea, bloody stool, nausea, vomiting. Historical: - Allergies: 11:05 Azithromycin; ll1 11:05 Bactrim; ll1 11:05 mycins; ll1 11:05 PENICILLINS; ll1 11:05 Sulfa (Sulfonamide Antibiotics); ll1 - PMHx: 11:05 Anemia; Anxiety; Asthma; Bipolar disorder; cardiac arrest; Hypertension; Hypothyroidism;ll1 - PSHx: 11:05 Appendectomy; section; hernia repair; Tonsillectomy; ll1 - Immunization history:: Client reports having NOT received the Covid vaccine. - Social history:: Smoking status: Patient denies any tobacco usage or history of. Screenin:09 Abuse screen: Denies threats or abuse. Nutritional screening: No deficits noted. ll1 Tuberculosis screening: No symptoms or risk factors identified. Fall Risk IV access (20 points). Total Brink Fall Scale indicates No Risk (0-24 pts). Vital Signs: 11:07 BP 115 / 80; Pulse 100; Resp 17; Temp 98.7; Pulse Ox 91% on R/A; Weight 147.42 kg; ll1 Height 5 ft. 5 in. (165.10 cm); Pain 10/10; 11:07 Body Mass Index 54.08 (147.42 kg, 165.10 cm) 1 ED Course: 10:50 Patient arrived in ED. ds1 11:05 Triage completed. 1 11:05 Arm band placed on. 1 11:57 Vernon Childs PA is PHCP. [facility] 11:57 Kang Gifford MD is Attending Physician. [facility] 12:22 Inserted saline lock: 20 gauge in left antecubital area, using aseptic technique. 3 15:08 Yonny Campbell, VITA is Primary Nurse. 1 15:09 Patient has correct armband on for positive identification. Bed in low position. Call [facility] light in reach. Cardiac monitoring not applicable on this patient. 19:22 No provider procedures requiring assistance completed. IV discontinued, intact, ph bleeding controlled, No redness/swelling at site. Pressure dressing applied. Administered Medications: 12:29 Drug: morphine 4 mg Route: IVP; Site: left antecubital; 1 16:56 Follow up: Response: No adverse reaction 1 12:29 Drug: Zofran (Ondansetron) 4 mg Route: IVP; Site: left antecubital; 1 16:56 Follow up: Response: No adverse reaction 1 16:44 Drug: Flagyl (metroNIDAZOLE) 500 mg Volume: 100 ml; Route: IVPB; Rate: 200 ml/hr; ll1 Infused Over: 30 mins; Site: right antecubital; 17:50 Follow up: Response: No adverse reaction; IV Status: Completed infusion; IV Intake: ll1 100ml 17:16 Drug: Cipro (ciprofloxacin) 400 mg Volume: 200 ml; Route: IVPB; Infused Over: 60 mins; ll1 Site: right antecubital; 18:21 Drug: Dicyclomine 20 mg Route: IM; Site: left vastus lateralis; 1 Medication: 15:09 VIS not applicable for this client. ll1 Intake: 17:50 IV: 100ml; Total: 100ml. ll1 Outcome: 19:18 Discharge ordered by . teresita 19:22 Discharged to home ambulatory. ph 19:22 Condition: good 19:22 Discharge instructions given to patient, Instructed on discharge instructions, follow up and referral plans. medication usage, Demonstrated understanding of instructions, follow-up care, medications, Prescriptions given X 1. 19:22 Patient left the ED. ph Signatures: Vernon Childs PA PA jmm Sanford, Demi 1 Peggy Liriano, RN RN Yonny Barker RN RN [facility] Clary Liriano 3 Corrections: (The following items were deleted from the chart) 11:10 11:07 Pulse 100bpm; Resp 17bpm; Temp 98.7F; 147.42 kg; Height 5 ft. 5 in.; BMI: 54.0; ll1 Pain 10/10; ll1 13:49 12:22 Inserted saline lock: 20 gauge in right antecubital area, using aseptic eh3 technique. eh3
--- NOTE | 2021-10-07 19:19 | EDPHYS ---
Physician Documentation [facility] Name: Rachael Knox Age: 36 yrs Sex: Female : 1985 Arrival Date: 10/07/2021 Time: 10:50 Bed 10 Private MD: [place] Physician Kang Gifford HPI: 10/07 12:00 This 36 yrs old Female presents to ER via EMS with complaints of Bloody Stool. jmm 12:00 The patient presents with abdominal pain. Onset: The symptoms/episode began/occurred jmm gradually. 12:00 The symptoms do not radiate. Associated signs and symptoms: Pertinent positives: nausea jmm and vomiting, diarrhea. 12:00 The symptoms are described as achy. Modifying factors: The symptoms are alleviated by jmm nothing, the symptoms are aggravated by nothing. This is a 36-year-old female with history of anxiety, anemia, asthma, bipolar, hypertension that presents emerged part with complaints of right lower abdominal pain which is been ongoing. Patient was previously diagnosed with colitis and prescribed Cipro and Flagyl. Denies fever but states having dark stools.. Historical: - Allergies: 11:05 Azithromycin; ll1 11:05 Bactrim; ll1 11:05 mycins; ll1 11:05 PENICILLINS; ll1 11:05 Sulfa (Sulfonamide Antibiotics); ll1 - PMHx: 11:05 Anemia; Anxiety; Asthma; Bipolar disorder; cardiac arrest; Hypertension; Hypothyroidism;ll1 - PSHx: 11:05 Appendectomy; section; hernia repair; Tonsillectomy; ll1 - Immunization history:: Client reports having NOT received the Covid vaccine. - Social history:: Smoking status: Patient denies any tobacco usage or history of. ROS: 12:00 Constitutional: Negative for fever, chills, and weight loss, Cardiovascular: Negative jmm for chest pain, palpitations, and edema, Respiratory: Negative for shortness of breath, cough, wheezing, and pleuritic chest pain. 12:00 Abdomen/GI: Positive for abdominal pain, nausea and vomiting, diarrhea. 12:00 All other systems are negative. Exam: 12:00 Constitutional: This is a well developed, well nourished patient who is awake, alert, jmm and in no acute distress. Head/Face: atraumatic. Eyes: EOMI, no conjunctival erythema appreciated ENT: Moist Mucus Membranes Neck: Trachea midline, Supple Chest/axilla: Normal chest wall appearance and motion. Cardiovascular: Regular rate and rhythm. No edema appreciated Respiratory: Normal respirations, no respiratory distress appreciated 12:00 Back: Normal ROM Skin: General appearance color normal MS/ Extremity: Moves all extremities, no obvious deformities appreciated, no edema noted to the lower extremities Neuro: Awake and alert Psych: Behavior is normal, Mood is normal, Patient is cooperative and pleasant 12:00 Abdomen/GI: Inspection: abdomen appears normal, Bowel sounds: normal, Palpation: soft, mild abdominal tenderness, in the suprapubic area, right lower quadrant and left lower quadrant. Vital Signs: 11:07 BP 115 / 80; Pulse 100; Resp 17; Temp 98.7; Pulse Ox 91% on R/A; Weight 147.42 kg; ll1 Height 5 ft. 5 in. (165.10 cm); Pain 10/10; 11:07 Body Mass Index 54.08 (147.42 kg, 165.10 cm) ll1 MDM: 12:00 Patient medically screened. [facility] 18:56 Data reviewed: vital signs, nurses notes. [facility] 19:18 Counseling: I had a detailed discussion with the patient and/or guardian regarding: the [facility] historical points, exam findings, and any diagnostic results supporting the discharge/admit diagnosis, lab results, the need for outpatient follow up, to return to the emergency department if symptoms worsen or persist or if there are any questions or concerns that arise at home. ED course: Labs are unremarkable. Patient does have some relief with the Bentyl. Patient advised to continue antibiotics and otherwise given strict return precautions. Patient understood and agrees plan of care.. 10/07 12:06 Order name: CBC with Diff; Complete Time: 13:38 [facility] 10/07 12:06 Order name: CMP; Complete Time: 13:06 [facility] 10/07 12:06 Order name: Lipase; Complete Time: 13:06 [facility] 10/07 12:53 Order name: Manual Differential; Complete Time: 13:38 [facility] 10/07 12:06 Order name: IV Saline Lock; Complete Time: 12:22 [facility] 10/07 12:06 Order name: Labs collected and sent; Complete Time: 12:22 [facility] Administered Medications: 12:29 Drug: morphine 4 mg Route: IVP; Site: left antecubital; ll1 16:56 Follow up: Response: No adverse reaction ll1 12:29 Drug: Zofran (Ondansetron) 4 mg Route: IVP; Site: left antecubital; ll1 16:56 Follow up: Response: No adverse reaction ll1 16:44 Drug: Flagyl (metroNIDAZOLE) 500 mg Volume: 100 ml; Route: IVPB; Rate: 200 ml/hr; ll1 Infused Over: 30 mins; Site: right antecubital; 17:50 Follow up: Response: No adverse reaction; IV Status: Completed infusion; IV Intake: ll1 100ml 17:16 Drug: Cipro (ciprofloxacin) 400 mg Volume: 200 ml; Route: IVPB; Infused Over: 60 mins; ll1 Site: right antecubital; 18:21 Drug: Dicyclomine 20 mg Route: IM; Site: left vastus lateralis; ll1 Disposition Summary: 10/07/21 19:18 Discharge Ordered Location: Home [facility] Condition: Stable [facility] Diagnosis - Colitis [facility] Followup: jm - With: Private Physician - When: 2 - 3 days - Reason: Recheck today's complaints, Continuance of care, Re-evaluation by your physician Discharge Instructions: - Discharge Summary Sheet jm - Colitis [facility] Forms: - Medication Reconciliation Form [facility] - Thank You Letter [facility] - Antibiotic Education [facility] - Prescription Opioid Use [facility] Prescriptions: - dicyclomine 20 mg Oral Tablet - take 1 tablet by ORAL route 4 times per day; 30 tablet; Refills: 0, Product [facility] Selection Permitted Signatures: Dispatcher [employer] Vernon Zhong PA PA jmm Lewis, Lynsay, RN RN ll1
[2021-10-07 19:30] VITALS: BP 115/80; TEMP 98.7; O2SAT 91
== END 2021-10-07 19:22 | disposition home or self-care (01) ==
LOC: ER 10:49
DX: K52.9 Noninfective gastroenteritis and colitis, unspecified (principal); Z88.0 Allergy status to penicillin; Z88.1 Allergy status to other antibiotic agents; Z88.2 Allergy status to sulfonamides; Z88.3 Allergy status to other anti-infective agents; F41.9 Anxiety disorder, unspecified; J45.909 Unspecified asthma, uncomplicated; I10 Essential (primary) hypertension; E03.9 Hypothyroidism, unspecified; D64.9 Anemia, unspecified; Z86.74 Personal history of sudden cardiac arrest
CPT/HCPCS: 36415; 80053; 83690; 85025; 96372; 99284; J0500; J0744; J2405; J3490

== ENCOUNTER 2021-10-10 13:30 | Inpatient (IN) | payer SELFPAY ==
--- OUTSIDE RECORDS SUMMARY | 2021-10-10 13:33 | XMS REPORT | Continuity of Care Document ---
:1985 Author Organization [facility] t Address [address] [place] [address] Dr. Marshall [address] [place] [id number] Care Team Providers Name Role Phone Unavailable Unavailable Unavailable Problems This patient has no known problems. Allergies, Adverse Reactions, Alerts This patient has no known allergies or adverse reactions. Medications This patient has no known medications. Procedures This patient has no known procedures. Results This patient has no known results.
[2021-10-10] MEDS ORDERED: NA CHLORIDE 0.9% 1,000 ML ONE (14:54)
[2021-10-10] MEDS ORDERED: MORPHINE 4 MG/ML SYR ONE (14:54)
[2021-10-10] MEDS ORDERED: FAMOTIDINE 20 MG/2 ML VIAL IV ONE (14:54)
[2021-10-10] MEDS ORDERED: ONDANSETRON 4 MG/2 ML VIAL ONE (14:54)
[2021-10-10 15:14] LABS: Absolute Lymphocytes (CBC) 6.3 K/uL (0.7-4.9); Hematocrit 33.9 % (36.0-45.0); Lymphocytes % 62.4 % (15.3-44.8); MPV 7.5 fL (7.6-11.3); RBC Red Blood Cell Count 3.61 M/uL (3.86-4.86)
[2021-10-10 15:27] LABS: Bilirubin Total 0.4 mg/dL (0.2-1.0); Potassium 3.4 mmol/L (3.5-5.1); Protein, Total 6.1 g/dL (6.4-8.2)
[2021-10-10 16:30] LABS: Blood Morphology Comment NOT SEEN (NOT SEEN); Platelet Estimate ADEQ
[2021-10-10] MEDS ORDERED: ACETAMINOPHEN 500 MG TAB ONE (17:10)
--- NOTE | 2021-10-10 17:35 | ER ---
Nurse's Notes [facility] Name: Rachael Knox Age: 36 yrs Sex: Female : 1985 Arrival Date: 10/10/2021 Time: 13:34 Bed 18 Private MD: Diagnosis: Other specified noninfective gastroenteritis and colitis Presentation: 10/10 13:48 Chief complaint: Patient states: This is my fourth time here this week. I was told I ld1 have right sided colitis. - It is just getting worse. I took my antibiotics and I can't keep them down. Now I can't keep anything down other than water. ABD right lower and upper quadrant. Coronavirus screen: At this time, the client does not indicate any symptoms associated with coronavirus-19. Ebola Screen: No symptoms or risks identified at this time. Initial Sepsis Screen: Does the patient meet any 2 criteria? No. Patient's initial sepsis screen is negative. Does the patient have a suspected source of infection? No. Patient's initial sepsis screen is negative. Risk Assessment: Do you want to hurt yourself or someone else? Patient reports no desire to harm self or others. Onset of symptoms was October 10, 2021. 13:48 Method Of Arrival: Ambulatory ld1 13:48 Acuity: DARSHAN 3 ld1 Triage Assessment: 13:49 General: Appears in no apparent distress. comfortable, Behavior is calm, cooperative, ld1 appropriate for age. Pain: Complains of pain in right upper quadrant and right lower quadrant Pain does not radiate. Pain currently is 8 out of 10 on a pain scale. Quality of pain is described as throbbing. EENT: No signs and/or symptoms were reported regarding the EENT system. Neuro: Level of Consciousness is awake, alert, obeys commands, Oriented to person, place, time, situation. Respiratory: Airway is patent Respiratory effort is even, unlabored. GI: Abdomen is round non-distended, Reports lower abdominal pain, upper abdominal pain, nausea, vomiting. 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 - Social history:: Smoking status: Patient denies any tobacco usage or history of. Patient/guardian denies using alcohol. Screenin:59 Abuse screen: Denies threats or abuse. Denies injuries from another. Nutritional sm5 screening: No deficits noted. Tuberculosis screening: No symptoms or risk factors identified. Fall Risk None identified. Assessment: 16:43 Reassessment: Patient and/or family updated on plan of care and expected duration. Pain ap3 level reassessed. Patient is alert, oriented x 3, equal unlabored respirations, skin warm/dry/pink. Patient states feeling better. Patient states symptoms have improved. 18:37 Reassessment: Patient and/or family updated on plan of care and expected duration. Pain ap3 level reassessed. Patient is alert, oriented x 3, equal unlabored respirations, skin warm/dry/pink. 22:26 GI: Bowel sounds present X 4 quads. Abd is soft. sm5 Vital Signs: 13:48 BP 149 / 87; Pulse 92; Resp 18; Temp 97.6(TE); Pulse Ox 95% on R/A; Weight 147.87 kg; ld1 Height 5 ft. 5 in. (165.10 cm); Pain 8/10; 17:38 BP 114 / 57; Pulse 86; Pulse Ox 97% on R/A; ap3 18:41 BP 129 / 73; Pulse 64; Pulse Ox 96% on R/A; ap3 13:48 Body Mass Index 54.25 (147.87 kg, 165.10 cm) ld1 ED Course: 13:34 Patient arrived in ED. am2 13:46 [facility] jh7 13:46 Kang Gifford MD is Attending Physician. jh7 13:49 Triage completed. ld1 13:49 Arm band placed on right wrist. ld1 14:40 Jill Sheridan, VITA is Primary Nurse. ap3 15:01 Inserted saline lock: 20 gauge in right antecubital area, using aseptic technique. mb7 Blood collected. 17:34 Graeme Joy is Hospitalizing Provider. 7 17:38 Admitting physician to see patient. ap3 19:29 COVID-19 SARS RT PCR (Document "Date of Onset" if Symptomatic) Sent. [facility] 22:00 Patient has correct armband on for positive identification. Placed in gown. Bed in low sm5 position. Call light in reach. Side rails up X2. 22:26 No provider procedures requiring assistance completed. Patient admitted, IV remains in [address] Administered Medications: 15:04 Drug: NS 0.9% 1000 ml Route: IV; Rate: 1 bolus; Site: right antecubital; ap3 15:04 Drug: morphine 4 mg Route: IVP; Site: right antecubital; ap3 16:02 Follow up: Response: No adverse reaction ap3 15:05 Drug: Pepcid (famotidine) 20 mg Route: IVP; Site: right antecubital; ap3 16:02 Follow up: Response: No adverse reaction ap3 15:05 Drug: Zofran (Ondansetron) 4 mg Route: IVP; Site: right antecubital; ap3 16:02 Follow up: Response: No adverse reaction ap3 17:08 Drug: Tylenol 1000 mg Route: PO; ap3 17:38 Follow up: Response: No adverse reaction; Pain is decreased ap3 Medication: 22:00 VIS not applicable for this client. [facility] Outcome: 17:35 Decision to Hospitalize by Provider. [facility] 22:26 Admitted to Med/surg accompanied by nurse, via wheelchair, with chart, Report called to [facility] [place] 22:26 Condition: stable 22:26 Instructed on the need for admit. 22:27 Patient left the ED. [facility] Signatures: Jill Arellano am2 Jill Sheridan, RN RN ap3 Naya Rogers RN RN [email or web address] Anat Waddell mb7 Julia Tong RN RN 5 Lalita Tran, ORTHOTIC FITTER ORTHOTIC FITTER [facility]
--- NOTE | 2021-10-10 17:36 | EDPHYS ---
Physician Documentation [facility] Name: Rachael Knox Age: 36 yrs Sex: Female : 1985 Arrival Date: 10/10/2021 Time: 13:34 Bed 18 Private MD: SIERRA Physician Kang Gifford HPI: 10/10 13:50 This 36 yrs old Female presents to ER via Ambulatory with complaints of jh7 Abdominal Pain, Diarrhea, Nausea. 13:50 Onset: The symptoms/episode began/occurred 2 week(s) ago. Patient presents for jh7 abdominal pain, nausea, vomiting, and diarrhea for 2 weeks. The patient states that this is her fourth visit in the past week. She has been given Cipro and Flagyl and states that she is unable to keep it down. Reports that she has been becoming increasingly fatigued, and feels that her symptoms are not improving. States that she does not have insurance and is unable to afford the prescribed Bentyl and Zofran.. 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 - Social history:: Smoking status: Patient denies any tobacco usage or history of. Patient/guardian denies using alcohol. ROS: 13:50 Constitutional: Negative for fever, chills, and weight loss, Neck: Negative for injury, jh7 pain, and swelling, Cardiovascular: Negative for chest pain, palpitations, and edema, Respiratory: Negative for shortness of breath, cough, wheezing, and pleuritic chest pain, : Negative for injury, bleeding, discharge, and swelling, Skin: Negative for injury, rash, and discoloration, Neuro: Negative for headache, weakness, numbness, tingling, and seizure. 13:50 Abdomen/GI: Positive for abdominal pain, nausea, vomiting, and diarrhea, Negative for dysphagia, black/tarry stool, rectal pain, rectal bleeding. 13:50 All other systems are negative. Exam: 13:50 Constitutional: This is a well developed, well nourished patient who is awake, alert, jh7 and in no acute distress. ENT: Nares patent. No nasal discharge, no septal abnormalities noted. Tympanic membranes are normal and external auditory canals are clear. Oropharynx with no redness, swelling, or masses, exudates, or evidence of obstruction, uvula midline. Mucous membranes moist. Cardiovascular: Regular rate and rhythm with a normal S1 and S2. No gallops, murmurs, or rubs. Normal PMI, no JVD. No pulse deficits. Respiratory: Lungs have equal breath sounds bilaterally, clear to auscultation and percussion. No rales, rhonchi or wheezes noted. No increased work of breathing, no retractions or nasal flaring. Back: No spinal tenderness. No costovertebral tenderness. Full range of motion. Skin: Warm, dry with normal turgor. Normal color with no rashes, no lesions, and no evidence of cellulitis. Neuro: Awake and alert, GCS 15, oriented to person, place, time, and situation. Sensory grossly intact. Normal gait. 13:50 Abdomen/GI: Inspection: abdomen appears normal, Bowel sounds: normal, Palpation: soft, mild abdominal tenderness, in the suprapubic area and right lower quadrant. Vital Signs: 13:48 BP 149 / 87; Pulse 92; Resp 18; Temp 97.6(TE); Pulse Ox 95% on R/A; Weight 147.87 kg; ld1 Height 5 ft. 5 in. (165.10 cm); Pain 8/10; 17:38 BP 114 / 57; Pulse 86; Pulse Ox 97% on R/A; ap3 18:41 BP 129 / 73; Pulse 64; Pulse Ox 96% on R/A; ap3 13:48 Body Mass Index 54.25 (147.87 kg, 165.10 cm) ld1 MDM: 14:33 Patient medically screened. [facility] 16:05 ED course: Consulted with Dr. Joy on patient condition. He will come and assess her jh7 in the ER to determine if she needs to be admitted.. 17:30 Differential diagnosis: colitis. Data reviewed: vital signs, nurses notes, lab test [facility] result(s). Data interpreted: Pulse oximetry: is 96 %. Interpretation: normal. Counseling: I had a detailed discussion with the patient and/or guardian regarding: the historical points, exam findings, and any diagnostic results supporting the discharge/admit diagnosis, lab results, radiology results, the need for further work-up and treatment in the hospital. ED course: Dr. Joy evaluated the patient in the ED and agreed that the patient needed to be admitted. She was admitted under observation with a diagnosis of colitis.. 10/10 14:35 Order name: CBC with Diff [facility] 10/10 14:35 Order name: CMP; Complete Time: 15:43 [facility] 10/10 14:35 Order name: Lipase; Complete Time: 15:43 [facility] 10/10 14:35 Order name: Urine Microscopic Only [facility] 10/10 16:03 Order name: Manual Differential EDMS 10/10 19:22 Order name: COVID-19 SARS RT PCR (Document "Date of Onset" if Symptomatic) bp 10/10 14:35 Order name: IV Saline Lock; Complete Time: 14:56 [facility] 10/10 14:35 Order name: Labs collected and sent; Complete Time: 15:00 [facility] Administered Medications: 15:04 Drug: NS 0.9% 1000 ml Route: IV; Rate: 1 bolus; Site: right antecubital; ap3 15:04 Drug: morphine 4 mg Route: IVP; Site: right antecubital; ap3 16:02 Follow up: Response: No adverse reaction ap3 15:05 Drug: Pepcid (famotidine) 20 mg Route: IVP; Site: right antecubital; ap3 16:02 Follow up: Response: No adverse reaction ap3 15:05 Drug: Zofran (Ondansetron) 4 mg Route: IVP; Site: right antecubital; ap3 16:02 Follow up: Response: No adverse reaction ap3 17:08 Drug: Tylenol 1000 mg Route: PO; ap3 17:38 Follow up: Response: No adverse reaction; Pain is decreased ap3 Disposition Summary: 10/10/21 17:35 Hospitalization Ordered Hospitalization Status: Observation [facility] Provider: Graeme Joy [facility] Location: Telemetry/MedSurg (observation) [facility] Condition: Stable [facility] Problem: new [facility] Symptoms: are unchanged [facility] Bed/Room Type: Standard [facility] Room Assignment: 216(10/10/21 21:20) mw Diagnosis - Other specified noninfective gastroenteritis and colitis [facility] Forms: - Medication Reconciliation Form [facility] - SBAR form [facility] Signatures: Dispatcher [employer] EDBlanca Martinez RN RN mw Jill Sheridan RN RN ap3 Naya Rogers RN RN ld1 Lalita Tran, STRUCTURAL TEST ENGINEER STRUCTURAL TEST ENGINEER [facility] Corrections: (The following items were deleted from the chart) 17:35 [facility] mw
--- NOTE | 2021-10-10 19:29 | P.HP ---
Certification for Inpatient Patient admitted to: Observation With expected LOS: <2 Midnights Practitioner: I am a practitioner with admitting privileges, knowledge of patient current condition, hospital course, and medical plan of care. Services: Services provided to patient in accordance with Admission requirements found in Title 42 Section 412.3 of the Code of Federal Regulations Patient History Date of Service: 10/10/21 Reason for admission: Nausea and vomiting History of Present Illness: 36-year-old morbidly obese woman with a history of hypothyroidism, asthma and bipolar disorder presented to the emergency department with a complaint of nausea and vomiting and abdominal pain. Patient states that she has not been able to tolerate any food or drink or keep any medication in without vomiting. Patient with multiple admissions for abdominal pain and similar complaint. This is her fourth ED visit over the past 1 week for uncontrolled abdominal pain nausea and vomiting. Symptoms associated with diarrhea. She stated she was prescribed oral antibiotics but she vomited whenever she took the antibiotics. CT abdomen and pelvis done in one of the ED visit on 10/06/21 shows moderate to marked colitis and ileitis which appeared to have worsened compared to CT abdomen done on 10/04 which reported only right-sided colitis. Patient has failed outpatient therapy. She is hospitalized for further management. Allergies erythromycin base Allergy (Verified 06/23/21 08:58) Hives/Rash Penicillins Allergy (Verified 06/23/21 08:58) Hives/Rash Sulfa (Sulfonamide Antibiotics) Allergy (Verified 06/23/21 08:58) Hives/Rash sulfamethoxazole [From Bactrim] Allergy (Verified 06/23/21 08:58) Unknown trimethoprim [From Bactrim] Allergy (Verified 06/23/21 08:58) Unknown Home Medications: Cholecalciferol (Vitamin D3) [Vitamin D 1000 Iu Tab*] 4,000 unit PO DAILY 30 Days tab 08/10/20 Zinc Sulfate [Zinc Sulfate*] 220 mg PO DAILY 30 Days cap 08/10/20 Albuterol Sulfate [Proair Hfa] 2 puff IH Q4H PRN 06/08/21 Ascorbic Acid [Vitamin C*] 500 mg PO DAILY 06/08/21 Ferrous Sulfate [Iron] 325 mg PO DAILY 06/08/21 Albuterol Neb [Proventil 0.083% Neb Soln] 2.5 mg NEB [id number] PRN #120 amp 07/02/21 Budesonide [Pulmicort] 1 amp NEB BID #60 amp 07/02/21 Docusate [Colace Cap*] 100 mg PO BID #60 cap 07/02/21 Ipratropium Neb [Atrovent*] 0.5 mg NEB [id number] PRN #120 amp 07/02/21 Levothyroxine Sodium [Synthroid] 175 mcg PO DAILY #30 tablet 07/02/21 Pantoprazole [Protonix Tab*] 40 mg PO BIDAC #60 tab 07/02/21 Sucralfate [Carafate*] 10 ml PO ACHS #420 ml 07/02/21 dexAMETHasone [Decadron*] 2 mg PO DAILY #5 tab 07/02/21 - Past Medical/Surgical History Diabetic: No -: hypothyroidism -: anxiety -: depression -: bipolar -: Asthma -: Anxiety -: COVID pneumonia -: c section -: tubal ligation -: tonsillectomy -: Adenoidectomy Psychosocial/ Personal History: 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 She endorsed multiple diarrhea episodes. Except as documented, all other systems reviewed and negative. Physical Examination - Physical Exam General: Alert, In no apparent distress, Oriented x3, Obese HEENT: Mucous membr. moist/pink, Sclerae nonicteric Neck: Supple, JVD not distended, No Thyromegaly Respiratory: Clear to auscultation bilaterally, Normal air movement Cardiovascular: No edema, Regular rate/rhythm, Normal S1 S2, No murmurs Capillary refill: <2 Seconds Gastrointestinal: Normal bowel sounds, Non-distended, Other (Obese abdomen, moderate diffuse tenderness) Musculoskeletal: No swelling, No tenderness Integumentary: No rashes, No erythema, No cyanosis Neurological: Normal strength at 5/5 x4 extr, Cranial nerves 3-12 intact Lymphatics: No axilla or inguinal lymphadenopathy - Studies Laboratory Data (last 24 hrs) 10/10/21 14:57: Sodium 139, Potassium 3.4 L, BUN 6 L, Creatinine 0.75, Glucose 91, Total Bilirubin 0.4, AST 75 H, ALT 55, Alkaline Phosphatase 65, Lipase 57 L 10/10/21 14:57: WBC 10.1 D, Hgb 12.0, Hct 33.9 L, Plt Count 211 Assessment and Plan - Problems (Diagnosis) (1) Nausea and vomiting Current Visit: Yes Status: Acute (2) Colitis Current Visit: Yes Status: Acute (3) Abdominal pain Current Visit: No Status: Acute Qualifiers: Abdominal location: left upper quadrant Qualified Code(s): R10.12 - Left upper quadrant pain - Plan Admitted to the medical floor. I suspect this is a chronic issue which could be IBD. Start IV antibiotics. Supportive measures with IV fluid and antiemetics as needed. Pain medications as needed. Consult to GI. Clear liquid diet. Monitor and optimize electrolytes. Stool studies-stool for C. difficile, fecal leukocytes. - Advance Directives Does patient have a Living Will: No Does patient have a Durable POA for Healthcare: No
[2021-10-10 22:29] VITALS: BMI 54.8
[2021-10-10] MEDS: CIPROFLOXACIN 400mg IV 400 MG/200 ML BAG IV SCH (23:03)
[2021-10-10] MEDS: NA CHLORIDE 0.9% 1,000 ML IV SCH (23:03)
[2021-10-10] MEDS: MORPHINE 2 MG/ML SYR IV PRN (23:04)
[2021-10-10] MEDS ORDERED: POTASSIUM 25 MEQ EFFERV TAB PO ONE (23:42)
[2021-10-11 00:18] LABS: Urine Appearance Clear (Clear); Urine Bilirubin Negative (Negative); Urine Blood Negative (Negative); Urine Color Yellow (Yellow); Urine Glucose Negative (Negative); Urine Protein Negative (Negative); Urine Specific Gravity 1.025 (1.005-1.030); Urine Urobilinogen 0.2 mg/dL (0.2-1.0)
[2021-10-11 00:20] LABS: Urine Microscopic Reflex NO UMIC
[2021-10-11] MEDS: METRONIDAZOLE 500mg IVPB 500 MG/100 ML BAG IV SCH ×5 (01:00→16:04)
[2021-10-11] MEDS: MORPHINE 2 MG/ML SYR IV PRN ×4 (01:41→22:16)
[2021-10-11] MEDS: ONDANSETRON 4 MG/2 ML VIAL IV PRN ×3 (01:42→22:16)
[2021-10-11] MEDS: ALBUTEROL 2.5 MG/3 ML NEB SOL NEB PRN ×2 (05:10→22:25)
[2021-10-11 05:47] LABS: Hematocrit 33.1 % (36.0-45.0); Lymphocytes % 67.9 % (15.3-44.8); MPV 7.4 fL (7.6-11.3)
[2021-10-11 06:13] LABS: Albumin 2.7 g/dL (3.4-5.0); Bilirubin Total 0.4 mg/dL (0.2-1.0); Magnesium 2.1 mg/dL (1.8-2.4); Phosphorus 2.2 mg/dL (2.5-4.9); Potassium 3.9 mmol/L (3.5-5.1); Protein, Total 5.4 g/dL (6.4-8.2)
[2021-10-11 06:22] LABS: Thyroid Stimulating Hormone 44.9 uIU/mL (0.360-3.740)
[2021-10-11 06:48] LABS: Blood Morphology Comment NOTED (NOT SEEN); Platelet Estimate ADEQ
[2021-10-11 06:49] LABS: Anisocytosis 1+; Macrocytosis 1+
[2021-10-11] MEDS: POTASS/SODIUM PHOSPHATE 1 PKT POWD.PACK PO SCH ×3 (07:00→09:00)
[2021-10-11] MEDS: NA CHLORIDE 0.9% 1,000 ML IV SCH ×2 (08:29→17:37)
[2021-10-11] MEDS: ENOXAPARIN 40 MG/0.4 ML SQ SCH (09:00)
[2021-10-11] MEDS: CIPROFLOXACIN 400mg IV 400 MG/200 ML BAG IV SCH ×3 (09:00→21:00)
--- NOTE | 2021-10-11 16:41 | P.PN ---
Subjective Date of Service: 10/11/21 Chief Complaint: Nausea and vomiting Patient reports intermittent vomiting. She stated the diarrhea frequency has improved. She reports persistent abdominal pain. She has been tolerating clear liquid diet. Physical Examination - Vital Signs Temperature: 98.0 F Blood Pressure: 98/56 Pulse: 75 Respirations: 16 Pulse Ox (%): 90 - Studies Laboratory Data (last 24 hrs) 10/11/21 05:32: Sodium 139, Potassium 3.9, BUN 4 L, Creatinine 0.65, Glucose 86, Phosphorus 2.2 L, Magnesium 2.1, Total Bilirubin 0.4, AST 73 H, ALT 48, Alkaline Phosphatase 62 10/11/21 05:32: WBC 10.3, Hgb 11.4 L, Hct 33.1 L, Plt Count 172 Assessment And Plan - Current Problems (Diagnosis) (1) Nausea and vomiting Current Visit: Yes Status: Acute (2) Colitis Current Visit: Yes Status: Acute (3) Abdominal pain Current Visit: No Status: Acute Qualifiers: Abdominal location: left upper quadrant Qualified Code(s): R10.12 - Left upper quadrant pain - Plan Physical Exam General: Alert, In no apparent distress, Oriented x3, Obese HEENT: Mucous membr. moist/pink, Sclerae nonicteric Neck: Supple, JVD not distended Respiratory: Clear to auscultation bilaterally, Normal air movement Cardiovascular: No edema, Regular rate/rhythm. Gastrointestinal: Normal bowel sounds, Non-distended, Obese abdomen, moderate diffuse tenderness. Integumentary: No rashes, No erythema, No cyanosis Neurological: Normal strength at 5/5 x4 extr, Cranial nerves 3-12 intact Lymphatics: No axilla or inguinal lymphadenopathy Plan: Case discussed with Dr. Pacheco. Also possibility of IBD but need to treat infectious enterocolitis Continue IV antibiotic Supportive measures with IV fluid and antiemetics as needed. Pain medications as needed. Keep on clear liquid diet for now. Monitor and optimize electrolytes. Stool studies including C. difficile are pending.
[2021-10-12 00:04] VITALS: O2SAT 94
[2021-10-12] MEDS: METRONIDAZOLE 500mg IVPB 500 MG/100 ML BAG IV SCH (01:00)
[2021-10-12] MEDS ORDERED: HYDROCODONE/APAP 7.5/325 MG TAB PO PRN (01:06)
[2021-10-12] MEDS ORDERED: ONDANSETRON 4 MG (ODT) TAB PO PRN (01:06)
[2021-10-12] MEDS: NA CHLORIDE 0.9% 1,000 ML IV SCH (02:28)
[2021-10-12 05:49] LABS: Absolute Lymphocytes (CBC) 5.6 K/uL (0.7-4.9); Hematocrit 31.3 % (36.0-45.0); Lymphocytes % 65.3 % (15.3-44.8); MPV 7.7 fL (7.6-11.3); RBC Red Blood Cell Count 3.23 M/uL (3.86-4.86)
[2021-10-12 06:04] LABS: Potassium 3.6 mmol/L (3.5-5.1)
[2021-10-12] MEDS ORDERED: POTASSIUM CL SA 10 MEQ TAB PO ONE (09:00)
[2021-10-12] MEDS: ENOXAPARIN 40 MG/0.4 ML SQ SCH (09:00)
[2021-10-12] MEDS ORDERED: CIPROFLOXACIN HCL 500 MG TAB PO SCH (09:00)
[2021-10-12] MEDS: metroNIDAZOLE 500 MG TABLET PO SCH ×2 (09:33→14:25)
--- NOTE | 2021-10-12 11:43 | P.PN ---
Subjective Date of Service: 10/12/21 Chief Complaint: Nausea and vomiting Patient nausea and vomiting has stopped but she is still experiencing diarrhea and abdominal pain. She has tolerated clear liquid diet. Physical Examination - Vital Signs Temperature: 98.2 F Blood Pressure: 92/51 Pulse: 75 Respirations: 16 Pulse Ox (%): 92 - Physical Exam General: In no apparent distress, Oriented x3 HEENT: Mucous membr. moist/pink Respiratory: Clear to auscultation bilaterally, Normal air movement Cardiovascular: No edema, Regular rate/rhythm, Normal S1 S2 Gastrointestinal: Normal bowel sounds, Soft and benign, Non-distended, Tenderness Musculoskeletal: No swelling Integumentary: No rashes Assessment And Plan - Current Problems (Diagnosis) (1) Nausea and vomiting Current Visit: Yes Status: Acute (2) Colitis Current Visit: Yes Status: Acute (3) Abdominal pain Current Visit: No Status: Acute Qualifiers: Abdominal location: left upper quadrant Qualified Code(s): R10.12 - Left upper quadrant pain - Plan Physical Exam General: Alert, In no apparent distress, Oriented x3, Obese HEENT: Mucous membr. moist/pink, Sclerae nonicteric Neck: Supple, JVD not distended Respiratory: Clear to auscultation bilaterally, Normal air movement Cardiovascular: No edema, Regular rate/rhythm. Gastrointestinal: Normal bowel sounds, Non-distended, Obese abdomen, moderate diffuse tenderness. Integumentary: No rashes, No erythema, No cyanosis Neurological: Normal strength at 5/5 x4 extr, Cranial nerves 3-12 intact Lymphatics: No axilla or inguinal lymphadenopathy Plan: Case discussed with Dr. Pacheco. He agrees with the possibility of IBD but need to treat infectious enterocolitis Continue IV antibiotic. Add IV steroid as she has not responded to IV antibiotic up-to-date Supportive measures with IV fluid and antiemetics as needed. Pain medications as needed. Full liquid diet Monitor and optimize electrolytes. Stool studies pending. Stool for C. difficile canceled for unknown reason.
[2021-10-12 16:19] VITALS: BP 116/67; TEMP 97.3
[2021-10-12] MEDS ORDERED: METHYLPREDNISOLONE 40 MG INJ IV SCH (17:00)
--- NOTE | 2021-10-12 18:53 | P.DS ---
Admission Date: 10/11/21 Discharge Date: 10/12/21 Disposition: ROUTINE DISCHARGE Discharge Condition: FAIR Reason for Admission: Nausea and vomiting - Problems (1) Nausea and vomiting Current Visit: Yes Status: Acute (2) Colitis Current Visit: Yes Status: Acute (3) Abdominal pain Current Visit: No Status: Acute Qualifiers: Abdominal location: left upper quadrant Qualified Code(s): R10.12 - Left upper quadrant pain Brief History of Present Illness: 36-year-old morbidly obese woman with a history of hypothyroidism, asthma and bipolar disorder presented to the emergency department with a complaint of nausea and vomiting and abdominal pain. Patient states that she has not been able to tolerate any food or drink or keep any medication in without vomiting. Patient with multiple admissions for abdominal pain and similar complaint. This is her fourth ED visit over the past 1 week for uncontrolled abdominal pain nausea and vomiting. Symptoms associated with diarrhea. She stated she was prescribed oral antibiotics but she vomited whenever she took the antibiotics. CT abdomen and pelvis done in one of the ED visit on 10/06/21 shows moderate to marked colitis and ileitis which appeared to have worsened compared to CT abdomen done on 10/04 which reported only right-sided colitis. Patient has failed outpatient therapy. She is hospitalized for further management. Hospital Course: Patient admitted to the medical floor and started on IV antibiotics-IV Flagyl and ciprofloxacin. Noted allergy to penicillin. Had nausea and vomiting resolved. Diarrhea frequency improved. She continued to experience intermittent abdominal pain. Patient symptoms concerning for inflammatory disease. She tolerated diet advancement to solid consistency. She also tolerated oral ciprofloxacin and Flagyl. Patient at this point is tolerating food, able to drink and oral medications. She is deemed stable for discharge. Patient is prescribed oral prednisone for possible inflammatory bowel disease. She will also complete 5 days of antibiotic treatment for infectious colitis. Vital Signs/Physical Exam: Temp Pulse Resp BP Pulse Ox 97.3 F 63 16 116/67 95 10/12/21 15:00 10/12/21 15:00 10/12/21 15:00 10/12/21 15:00 10/12/21 15:00 General: Alert, In no apparent distress, Oriented x3, Obese HEENT: Mucous membr. moist/pink Neck: Supple, JVD not distended Respiratory: Clear to auscultation bilaterally, Normal air movement Cardiovascular: No edema, Regular rate/rhythm, Normal S1 S2 Gastrointestinal: Soft and benign, Non-distended, No tenderness Musculoskeletal: No swelling Integumentary: No rashes Neurological: Normal strength at 5/5 x4 extr Laboratory Data at Discharge: WBC 8.6 K/uL (4.3-10.9) D 10/12/21 05:25 Hgb 11.1 g/dL (12.0-15.0) L 10/12/21 05:25 Hct 31.3 % (36.0-45.0) L 10/12/21 05:25 Plt Count 181 K/uL (152-406) 10/12/21 05:25 Sodium 139 mmol/L (136-145) 10/12/21 05:25 Potassium 3.6 mmol/L (3.5-5.1) 10/12/21 05:25 BUN 5 mg/dL (7-18) L 10/12/21 05:25 Creatinine 0.66 mg/dL (0.55-1.3) 10/12/21 05:25 Glucose 94 mg/dL (74-106) 10/12/21 05:25 Phosphorus 2.2 mg/dL (2.5-4.9) L 10/11/21 05:32 Magnesium 2.1 mg/dL (1.8-2.4) 10/11/21 05:32 Total Bilirubin 0.4 mg/dL (0.2-1.0) 10/11/21 05:32 AST 73 U/L (15-37) H 10/11/21 05:32 ALT 48 U/L (12-78) 10/11/21 05:32 Alkaline Phosphatase 62 U/L (45-117) 10/11/21 05:32 Lipase 57 U/L (73-393) L 10/10/21 14:57 Home Medications: Albuterol Sulfate [Proair Hfa] 2 puff IH Q4H PRN 06/08/21 Albuterol Neb [Proventil 0.083% Neb Soln] 2.5 mg NEB [id number] PRN #120 amp 07/02/21 Budesonide [Pulmicort] 1 amp NEB BID #60 amp 07/02/21 Ipratropium Neb [Atrovent*] 0.5 mg NEB [id number] PRN #120 amp 07/02/21 Levothyroxine Sodium [Synthroid] 175 mcg PO DAILY #30 tablet 07/02/21 Pantoprazole [Protonix Tab*] 40 mg PO BIDAC #60 tab 07/02/21 Sucralfate [Carafate*] 10 ml PO ACHS #420 ml 07/02/21 Ciprofloxacin HCl [Cipro 500 MG Tablet] 500 mg PO BID #10 tab 10/12/21 Hydrocodone 7.5/APAP 325 [[place] 7.5/325 mg*] 1 tab PO Q6H PRN #12 tab 10/12/21 Ondansetron [Zofran (Odt)*] 4 mg PO Q6H PRN #30 tab 10/12/21 metroNIDAZOLE [Flagyl*] 500 mg PO TID #15 tablet 10/12/21 predniSONE [Prednisone*] 40 mg PO DAILY #5 tab 10/12/21 New Medications: Ciprofloxacin HCl [Cipro 500 MG Tablet] 500 mg PO BID #10 tab metroNIDAZOLE [Flagyl*] 500 mg PO TID #15 tablet Hydrocodone 7.5/APAP 325 [[place] 7.5/325 mg*] 1 tab PO Q6H PRN #12 tab PRN Reason: Pain Scale 5-7 (Moderate) predniSONE [Prednisone*] 40 mg PO DAILY #5 tab Ondansetron [Zofran (Odt)*] 4 mg PO Q6H PRN #30 tab PRN Reason: Nausea / Vomiting Diet: AHA (Progress from soft diet to solid diet as tolerated.) Activity: Ad olena Followup: MICHEAL SHARPE [Primary Care Provider] - 1 Week Time spent managing pt's care (in minutes): 33
[2021-10-13] MEDS ORDERED: predniSONE 20 MG TAB PO SCH (09:00)
== END 2021-10-12 19:00 | disposition home or self-care (01) | DRG 392 ==
LOC: ER 13:30 → ERHOLD 19:14 → 2ND 21:41 → OBSVTOIN 10-11 08:28
PROVIDERS: ADMIT Internal Medicine; ATTEND Internal Medicine
DX: A09 Infectious gastroenteritis and colitis, unspecified (principal); Z68.43 Body mass index [BMI] 50.0-59.9, adult; E66.01 Morbid (severe) obesity due to excess calories; E03.9 Hypothyroidism, unspecified; K52.3 Indeterminate colitis; J45.909 Unspecified asthma, uncomplicated; F31.9 Bipolar disorder, unspecified; Z86.16 Personal history of COVID-19; Z88.2 Allergy status to sulfonamides; Z88.0 Allergy status to penicillin
CPT/HCPCS: 36415; 80048; 80053; 81003; 83690; 83735; 84100; 84439; 84443; 85025; 94640; 96374; 96375; 99285; G0378; J0744; J1650; J2270; J2405; J3490; J7030; U0003

== ENCOUNTER 2021-10-30 20:51 | Emergency (ER) | payer OTHER, SELFPAY ==
--- OUTSIDE RECORDS SUMMARY | 2021-10-30 20:53 | XMS REPORT | Continuity of Care Document ---
:[address] [facility] t Address [address] [place] [address] Dr. Marshall [address] [place] [id number] Care Team Providers Name Role Phone Unavailable Unavailable Unavailable Problems This patient has no known problems. Allergies, Adverse Reactions, Alerts This patient has no known allergies or adverse reactions. Medications This patient has no known medications. Procedures This patient has no known procedures. Results This patient has no known results.
[2021-10-30] MEDS ORDERED: predniSONE 20 MG TAB ONE (21:38)
--- NOTE | 2021-10-30 22:05 | RAD REPORT ---
EXAM DESCRIPTION: Rosario Starks And Shweta (2 Views)10/30/2021 9:59 pm CLINICAL HISTORY: Cough COMPARISON: September 2021 FINDINGS: The lungs appear clear of acute infiltrate. The heart is mildly enlarged IMPRESSION: No acute abnormalities displayed
--- NOTE | 2021-10-30 22:09 | EDPHYS ---
Physician Documentation [facility] Name: Rachael Knox Age: 36 yrs Sex: Female : 1985 Arrival Date: 10/30/2021 Time: 20:55 Bed 5 Private MD: ED Physician Junito Sutton HPI: 10/30 22:06 This 36 yrs old Female presents to ER via Ambulatory with complaints of rn Shortness Of Breath, wheezing. 22:06 The patient has shortness of breath at rest, with light activity. Onset: The rn symptoms/episode began/occurred yesterday. Duration: The symptoms are intermittent. The patient's shortness of breath is aggravated by exertion, light activity, is alleviated by inhaler. Associated signs and symptoms: Pertinent negatives: fever, hemoptysis. Severity of symptoms: At their worst the symptoms were moderate in the emergency department the symptoms have improved. The patient has experienced similar episodes in the past. The patient has not recently seen a physician. Pt reports sob and wheezing, began yesterday, no fever, no hemoptysis, feels like she is wheezing, improves after inhaler but comes back. No chest pain, just feels like can't take deep breath. No fever. Does not feel ill. . 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 - Social history:: Smoking status: Patient denies any tobacco usage or history of. - Family history:: not pertinent. - Hospitalizations: : No recent hospitalization is reported. ROS: 22:06 Constitutional: Negative for fever, chills, and weight loss, Cardiovascular: Negative rn for chest pain, palpitations, and edema, Respiratory: + sob and wheezing Abdomen/GI: Negative for abdominal pain, nausea, vomiting, diarrhea, and constipation, Neuro: Negative for headache, weakness, numbness, tingling, and seizure. Exam: 22:06 Constitutional: This is a well developed, well nourished patient who is awake, alert, rn and in no acute distress. Cardiovascular: Regular rate and rhythm. No pulse deficits. Respiratory: Clear bilateral breath sounds, mild tachypnea, no retractions. Neuro: Awake and alert, GCS 15 Vital Signs: 21:18 BP 135 / 71; Pulse 80; Resp 18; Temp 98; Pulse Ox 97% on R/A; Weight 151.95 kg; Height vc1 5 ft. 5 in. (165.10 cm); Pain 0/10; 21:43 BP 134 / 87; Pulse 81; Resp 22 S; Pulse Ox 95% on R/A; as6 21:18 Body Mass Index 55.75 (151.95 kg, 165.10 cm) vc1 MDM: 21:05 Patient medically screened. rn 22:06 Differential diagnosis: Anxiety Reaction asthma, Bronchitis pneumonia, Pneumothorax rn reactive airway disease. Data reviewed: vital signs, nurses notes, radiologic studies, plain films, and as a result, I will discharge patient. Counseling: I had a detailed discussion with the patient and/or guardian regarding: the historical points, exam findings, and any diagnostic results supporting the discharge/admit diagnosis, radiology results, the need for outpatient follow up, to return to the emergency department if symptoms worsen or persist or if there are any questions or concerns that arise at home. Special discussion: I discussed with the patient/guardian in detail that at this point there is no indication for admission to the hospital. It is understood, however, that if the symptoms persist or worsen the patient needs to return immediately for re-evaluation. Based on the history and exam findings, there is no indication for further emergent testing or inpatient evaluation. I discussed with the patient/guardian the need to see the primary care provider for further evaluation of the symptoms. ED course: CXR clear, no oxygen requirement, no ischemia on ECG, will dc home with refill of inhaler and steroids with return precautions.. 10/30 21:24 Order name: XRAY Chest Pa And Lat (2 Views); Complete Time: 22: rn 10/30 21:24 Order name: EKG; Complete Time: 21:24 rn 10/30 21:24 Order name: EKG - Nurse/Tech; Complete Time: 21:42 rn Administered Medications: 21:42 Drug: predniSONE 60 mg Route: PO; as6 22:10 Follow up: Response: No adverse reaction as6 22:16 Drug: Valium (diazepam) 2 mg Route: PO; as6 22:17 Follow up: Response: No adverse reaction as6 Disposition Summary: 10/30/21 22:09 Discharge Ordered Location: Home rn Problem: an acute exacerbation rn Symptoms: have improved rn Condition: Stable rn Diagnosis - Wheezing rn - Unspecified asthma, uncomplicated rn Followup: rn - With: Private Physician - When: As needed - Reason: Recheck today's complaints, Re-evaluation by your physician Discharge Instructions: - Discharge Summary Sheet rn - Asthma, Adult rn Forms: - Medication Reconciliation Form rn - Thank You Letter rn - Antibiotic internship coordinator - Prescription Opioid Use rn Prescriptions: - albuterol sulfate 90 mcg/actuation Inhalation HFA aerosol inhaler - inhale 2 puff by INHALATION route every 4 hours; 1 Pump; Refills: 0, Product rn Selection Permitted - Prednisone 20 mg Oral Tablet - take 3 tablets by ORAL route once daily for 5 days; 15 tablet; Refills: 0, rn Product Selection Permitted Signatures: Dispatcher [employer] Junito López MD MD rn Slawson, Ashby RN RN as6 Makenzie Stone RN RN vc1
--- NOTE | 2021-10-30 22:09 | ER ---
Nurse's Notes [facility] Name: Rachael Knox Age: 36 yrs Sex: Female : 1985 Arrival Date: 10/30/2021 Time: 20:55 Bed 5 Private MD: Diagnosis: Wheezing;Unspecified asthma, uncomplicated Presentation: 10/30 21:18 Chief complaint: Patient states: "I am having chest tightness and shortness of breath vc1 but my anxiety is through the roof, so I don't know if it is a panic attack or not.". Coronavirus screen: Vaccine status: Patient reports being unvaccinated. At this time, the client does not indicate any symptoms associated with coronavirus-19. Ebola Screen: No symptoms or risks identified at this time. Initial Sepsis Screen: Does the patient meet any 2 criteria? No. Patient's initial sepsis screen is negative. Does the patient have a suspected source of infection? No. Patient's initial sepsis screen is negative. Risk Assessment: Do you want to hurt yourself or someone else? Patient reports no desire to harm self or others. Onset of symptoms was October 30, 2021. 21:18 Method Of Arrival: Ambulatory vc1 21:18 Acuity: DARSHAN 3 vc1 Triage Assessment: 21:24 General: Appears in no apparent distress. Behavior is calm. Pain: Denies pain. vc1 Respiratory: Reports shortness of breath Onset: The symptoms/episode began/occurred yesterday, the patient has mild shortness of breath. 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 - Social history:: Smoking status: Patient denies any tobacco usage or history of. - Family history:: not pertinent. - Hospitalizations: : No recent hospitalization is reported. Screenin:45 Abuse screen: Denies threats or abuse. Denies injuries from another. Nutritional as6 screening: No deficits noted. Tuberculosis screening: No symptoms or risk factors identified. Fall Risk None identified. Assessment: 21:44 General: Appears in no apparent distress. Behavior is cooperative, anxious. Pain: as6 Denies pain. Neuro: Gan Agitation-Sedation Scale (RASS): +1 Restless Level of Consciousness is awake, alert, obeys commands, Oriented to person, place, time, situation. Cardiovascular: Reports shortness of breath, Rhythm is sinus rhythm. Respiratory: Airway is patent Trachea midline Respiratory effort is even, unlabored, Respiratory pattern is regular, symmetrical, Breath sounds are clear. Vital Signs: 21:18 BP 135 / 71; Pulse 80; Resp 18; Temp 98; Pulse Ox 97% on R/A; Weight 151.95 kg; Height vc1 5 ft. 5 in. (165.10 cm); Pain 0/10; 21:43 BP 134 / 87; Pulse 81; Resp 22 S; Pulse Ox 95% on R/A; as6 21:18 Body Mass Index 55.75 (151.95 kg, 165.10 cm) vc1 ED Course: 20:55 Patient arrived in ED. ja2 21:05 Junito Sutton MD is Attending Physician. rn 21:24 Triage completed. vc1 21:24 Arm band placed on right wrist. vc1 21:30 Smooth Wilson, VITA is Primary Nurse. as6 21:45 Bed in low position. Call light in reach. Side rails up X 1. Pulse ox on. NIBP on. Warm as6 blanket given. 22:01 XRAY Chest Pa And Lat (2 Views) In Process Unspecified. EDMS 22:16 No provider procedures requiring assistance completed. Patient did not have IV access as6 during this emergency room visit. Administered Medications: 21:42 Drug: predniSONE 60 mg Route: PO; as6 22:10 Follow up: Response: No adverse reaction as6 22:16 Drug: Valium (diazepam) 2 mg Route: PO; as6 22:17 Follow up: Response: No adverse reaction as6 Medication: 22:17 VIS not applicable for this client. as6 Outcome: 22:09 Discharge ordered by . rn 22:16 Discharged to home ambulatory. as6 22:16 Condition: stable 22:16 Discharge instructions given to patient, Instructed on discharge instructions, follow up and referral plans. medication usage, Demonstrated understanding of instructions, follow-up care, medications, Prescriptions given X 2. 22:17 Patient left the ED. as6 Signatures: Dispatcher [employer] EDMS Junito Sutton MD MD rn Alexander, Jessica ja2 Slawson, Ashby, RN RN as6 Makenzie Stone RN RN vc1
[2021-10-30] MEDS ORDERED: DIAZEPAM 2 MG TABLET ONE (22:20)
[2021-10-30 23:11] VITALS: TEMP 98
[2021-10-30 23:17] VITALS: BP 134/87; O2SAT 95
--- NOTE | 2021-10-31 14:18 | EKG ---
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
== END 2021-10-30 22:17 | disposition home or self-care (01) ==
LOC: ER 20:51
DX: J45.909 Unspecified asthma, uncomplicated (principal); I10 Essential (primary) hypertension; Z88.0 Allergy status to penicillin; Z88.1 Allergy status to other antibiotic agents; Z88.2 Allergy status to sulfonamides; Z88.3 Allergy status to other anti-infective agents
CPT/HCPCS: 71046; 93005; 99284; J7512

== ENCOUNTER 2021-11-28 14:02 | Emergency (ER) | payer SELFPAY ==
[2021-11-28] MEDS ORDERED: IBUPROFEN 400 MG TAB ONE (14:39)
[2021-11-28] MEDS ORDERED: HYDROCODONE/APAP 7.5/325 MG TAB ONE (14:39)
[2021-11-28] MEDS ORDERED: LIDOCAINE VISCOUS 2% SOLN 15 ML UDC ONE (14:39)
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
[2021-11-28] MEDS ORDERED: TETANUS & DIPHTHERIA TOX,ADULT 0.5 ML VIAL ONE (15:09)
[2021-11-28 15:29] VITALS: BP 138/85; TEMP 98.6; O2SAT 97
== END 2021-11-28 15:16 | disposition home or self-care (01) ==
LOC: ER 14:02
DX: T21.22XA Burn of second degree of abdominal wall, initial encounter (principal); T31.0 Burns involving less than 10% of body surface; X12.XXXA Contact with other hot fluids, initial encounter; Y93.G3 Activity, cooking and baking; Z23 Encounter for immunization; I10 Essential (primary) hypertension; Z88.0 Allergy status to penicillin; Z88.1 Allergy status to other antibiotic agents; Z88.2 Allergy status to sulfonamides; Z88.3 Allergy status to other anti-infective agents
CPT/HCPCS: 90714

== ENCOUNTER 2021-12-01 14:22 | Emergency (ER) | payer SELFPAY ==
[2021-12-01 15:29] LABS: Absolute Lymphocytes (CBC) 3.4 K/uL (0.7-4.9); Hematocrit 40.3 % (36.0-45.0); Lymphocytes % 42.5 % (15.3-44.8); MCV 91.5 fL (80-100); MPV 8.5 fL (7.6-11.3)
--- NOTE | 2021-12-01 15:53 | RAD REPORT ---
EXAM DESCRIPTION: RAD - Chest Single View - 12/01/2021 3:41 pm CLINICAL HISTORY: CHEST PAIN Chest pain. COMPARISON: Chest Pa And Lat (2 Views) dated 10/30/2021; Chest Single View dated 10/04/2021; Chest Sing le View dated 07/27/2021; Chest Single View dated 07/05/2021 FINDINGS: Portable technique limits examination quality. The lungs are grossly clear. The heart is normal in size. No displaced fractures. IMPRESSION: No acute intrathoracic process suspected.
[2021-12-01] MEDS ORDERED: ASPIRIN 81 MG CHEWABLE TABLET ONE (16:01)
[2021-12-01 16:02] LABS: BUN Blood Urea Nitrogen 11 mg/dL (7-18); Bicarbonate 24 mmol/L (21-32); Glomerular Filtration Rate 82 ml/min (=/>90); Glucose Level 103 mg/dL (74-106); Sodium Level 138 mmol/L (136-145)
[2021-12-01 16:03] LABS: Potassium 3.9 mmol/L (3.5-5.1); Troponin High Sensitivity < 3.0 pg/mL (<58.9)
--- NOTE | 2021-12-01 16:07 | EDPHYS ---
Physician Documentation [facility] Name: Rachael Knox Age: 36 yrs Sex: Female : 1985 Arrival Date: 12/01/2021 Time: 14:23 Bed 14 Private MD: ED Physician Junito Sutton HPI: 12/01 15:05 This 36 yrs old Female presents to ER via Ambulatory with complaints of Chest en Pain, Numbness Of Hand, Dizziness. 15:05 36-year-old female with history of hypertension, diabetes, cardiac arrest from unknown en reason, bipolar depression with anxiety presents to the ED with sudden onset of left-sided chest pain that is radiating to the left periscapular area described as sharp and worse with movement. Onset while washing close. She denies associated fevers, chills, nausea, vomiting. No shortness of breath, dyspnea on exertion. No peripheral edema, calf pain.. Historical: - Allergies: 14:45 Azithromycin; iw 14:45 Bactrim; iw 14:45 mycins; iw 14:45 PENICILLINS; iw 14:45 Sulfa (Sulfonamide Antibiotics); iw - PMHx: 14:45 Anemia; Anxiety; Asthma; Bipolar disorder; cardiac arrest; Hypertension; Hypothyroidism;iw - PSHx: 14:45 Appendectomy; section; hernia repair; Tonsillectomy; iw - Immunization history:: Adult Immunizations unknown. - Social history:: Smoking status: unknown. ROS: 15:05 Constitutional: Negative for fever, chills, and weight loss. en 15:05 Constitutional: Negative for body aches, chills, fatigue, fever. 15:05 Cardiovascular: Positive for chest pain, Negative for edema, orthopnea, palpitations, paroxysmal nocturnal dyspnea. 15:05 Respiratory: Negative for cough, pleurisy, shortness of breath, wheezing. 15:05 Abdomen/GI: Negative for abdominal pain, nausea and vomiting. 15:05 All other systems are negative. Exam: 15:05 Constitutional: This is a well developed, well nourished patient who is awake, alert, en and in no acute distress. 15:05 Constitutional: The patient appears in no acute distress, alert, awake. 15:05 Head/face: Exam is negative for acute changes. 15:05 Eyes: Conjunctiva: normal, no exudate, no injection. 15:05 ENT: Poor dentition, airway patent, mucous membranes moist.. 15:05 Neck: ROM/movement: is normal, is supple, No JVD. 15:05 Chest/axilla: Reproducible left upper chest wall tenderness to palpation and with resistance of left upper extremity.. 15:05 Cardiovascular: Rate: normal, Rhythm: regular, Pulses: no pulse deficits are appreciated, Heart sounds: normal, no murmur, no rub, no gallop. 15:05 Respiratory: the patient does not display signs of respiratory distress, Respirations: normal, Breath sounds: are clear throughout, no rales, rhonchi. 15:05 Abdomen/GI: Inspection: abdomen appears normal, Bowel sounds: normal, Palpation: abdomen is soft and non-tender. 15:05 Musculoskeletal/extremity: ROM: intact in all extremities, full active range of motion, Calves: are non-tender, have equal circumference. 15:05 Skin: no rash present. 15:05 Neuro: Orientation: is normal, to person, place \T\ time. Mentation: appropriate for stated age. 15:05 Psych: Behavior/mood is pleasant, cooperative, Affect is calm. Vital Signs: 15:27 BP 125 / 90; Pulse 85; Resp 18; Temp 97.2; Pulse Ox 100% on R/A; iw 16:38 BP 128 / 73; Pulse 85; Resp 18; Pulse Ox 100% on R/A; tp1 MDM: 15:05 Differential diagnosis: viral Infection, Costochondritis, ACS, dysrhythmia, anxiety. en Data reviewed: vital signs, nurses notes, old medical records, lab test result(s), EKG, EKG with normal sinus rhythm at 83 bpm. Normal axis, normal intervals, isolated inverted T waves in aVL without ST depression or elevation. No STEMI, and as a result, I will. 15:23 Patient medically screened. en 16:04 ED course: Reviewed imaging and labs with patient. Pain is reproducible on exam. en Negative troponin x1 and normal EKG. Will DC home with PCP follow-up for atypical chest pain.. 16:04 ED course: Heart score of 1. en 12/01 15:03 Order name: Basic Metabolic Panel; Complete Time: 16:04 en 12/01 15:03 Order name: CBC with Diff; Complete Time: 16:04 en 12/01 15:03 Order name: Troponin HS; Complete Time: 16:12/01 15:03 Order name: XRAY Chest (1 view); Complete Time: 16:12/01 15:03 Order name: EKG; Complete Time: 15:12/01 15:03 Order name: Cardiac monitoring; Complete Time: 15:12/01 15:03 Order name: EKG - Nurse/Tech; Complete Time: 15:12/01 15:03 Order name: IV Saline Lock; Complete Time: 15:12/01 15:03 Order name: Labs collected and sent; Complete Time: 15:12/01 15:03 Order name: O2 Per Protocol; Complete Time: 15:12/01 15:03 Order name: O2 Sat Monitoring; Complete Time: 15:20 en Administered Medications: 15:57 Drug: Aspirin Chewable Tablet 324 mg Route: PO; vg1 16:46 Follow up: Response: No adverse reaction tp1 Disposition: 18:27 Co-signature as Attending Physician, Junito Sutton MD. rn Disposition Summary: 12/01/21 16:05 Discharge Ordered Location: Home en Problem: new en Symptoms: have improved en Condition: Stable en Diagnosis - atypical chest pain en Followup: en - With: Kal Park MD - When: 48 Hours - Reason: Discharge Instructions: - Discharge Summary Sheet en - Nonspecific Chest Pain, Adult, [id number] en Forms: - Medication Reconciliation Form en - Thank You Letter en - Antibiotic Education en - Prescription Opioid Use en Signatures: Dispatcher [employer] Anabella Saini, RN Junito Noyola MD MD rn Garcia, Victoria, RN RN vg1 Natasha Hutchins tp1 Sanjuanita Olivier PA PA en
--- NOTE | 2021-12-01 16:07 | ER ---
Nurse's Notes [facility] Name: Rachael Knox Age: 36 yrs Sex: Female : 1985 Arrival Date: 12/01/2021 Time: 14:23 Bed 14 Private MD: Diagnosis: atypical chest pain Presentation: 12/01 14:44 Chief complaint: Patient states: left sided chest pain X 2 hours , radiates to iw shoulder/back , also has really bad anxiety. Coronavirus screen: At this time, the client does not indicate any symptoms associated with coronavirus-19. Ebola Screen: Patient negative for fever greater than or equal to 101.5 degrees Fahrenheit, and additional compatible Ebola Virus Disease symptoms Patient denies exposure to infectious person. Patient denies travel to an Ebola-affected area in the 21 days before illness onset. No symptoms or risks identified at this time. Initial Sepsis Screen: Does the patient meet any 2 criteria? No. Patient's initial sepsis screen is negative. Does the patient have a suspected source of infection? No. Patient's initial sepsis screen is negative. Risk Assessment: Do you want to hurt yourself or someone else? Patient reports no desire to harm self or others. 14:44 Acuity: DARSHAN 3 iw 14:44 Method Of Arrival: Ambulatory iw 16:39 Onset of symptoms was December 01, 2021. tp1 Triage Assessment: 16:41 General: Behavior is calm, cooperative. tp1 Historical: - Allergies: 14:45 Azithromycin; iw 14:45 Bactrim; iw 14:45 mycins; iw 14:45 PENICILLINS; iw 14:45 Sulfa (Sulfonamide Antibiotics); iw - PMHx: 14:45 Anemia; Anxiety; Asthma; Bipolar disorder; cardiac arrest; Hypertension; Hypothyroidism;iw - PSHx: 14:45 Appendectomy; section; hernia repair; Tonsillectomy; iw - Immunization history:: Adult Immunizations unknown. - Social history:: Smoking status: unknown. Screenin:39 Abuse screen: Denies threats or abuse. Nutritional screening: No deficits noted. tp1 Tuberculosis screening: No symptoms or risk factors identified. Fall Risk None identified. Assessment: 16:12 Reassessment: stated having chest discomfort, but denies pain. General: Appears in no tp1 apparent distress. Pain: Complains of pain in chest Pain radiates to right shoulder Pain currently is 0 out of 10 on a pain scale. Quality of pain is described as heavy, Pain began few hours ago. Pain: Is continuous. Pain:. Neuro: No deficits noted. Reports headache. Neuro: Reports tingling in hands bilaterally. Cardiovascular: Denies nausea, shortness of breath, vomiting, Patient's skin is warm and dry. Respiratory: No deficits noted. Airway is patent. GI: No signs and/or symptoms were reported involving the gastrointestinal system. : No signs and/or symptoms were reported regarding the genitourinary system. EENT: No signs and/or symptoms were reported regarding the EENT system. Derm: Skin is intact, is healthy with good turgor, Skin is pink, warm \T\ dry. Musculoskeletal: No signs and/or symptoms reported regarding the musculoskeletal system. Vital Signs: 15:27 BP 125 / 90; Pulse 85; Resp 18; Temp 97.2; Pulse Ox 100% on R/A; iw 16:38 BP 128 / 73; Pulse 85; Resp 18; Pulse Ox 100% on R/A; tp1 ED Course: 14:23 Patient arrived in ED. am2 14:28 Sanjuanita Olivier PA is PHCP. en 14:28 Junito Sutton MD is Attending Physician. en 14:45 Triage completed. iw 14:45 Arm band placed on. iw 15:23 EKG done, by ED staff, reviewed by Sanjuanita SANDERS. mb7 15:26 Inserted saline lock: 18 gauge in right antecubital area, using aseptic technique. mb7 Blood collected. 15:27 Bed in low position. Call light in reach. Side rails up X 1. Door closed. Noise mb7 minimized. Client placed on continuous cardiac and pulse oximetry monitoring. NIBP monitoring applied. quality assurance monitor body on. Pulse ox on. 15:27 Basic Metabolic Panel Sent. mb7 15:27 CBC with Diff Sent. mb7 15:27 Troponin HS Sent. mb7 15:43 XRAY Chest (1 view) In Process Unspecified. EDMS 15:51 Shasta Rivera, VITA is Primary Nurse. vg1 16:05 Kal Park MD is Referral Physician. en 16:40 IV discontinued, intact, bleeding controlled, No redness/swelling at site. Pressure tp1 dressing applied. Patient maintains SpO2 saturation greater than 95% on room air. 16:42 No provider procedures requiring assistance completed. tp1 Administered Medications: 15:57 Drug: Aspirin Chewable Tablet 324 mg Route: PO; vg1 16:46 Follow up: Response: No adverse reaction tp1 Medication: 16:45 VIS not applicable for this client. tp1 Outcome: 16:05 Discharge ordered by MD. mora 16:42 Discharged to home ambulatory. tp1 16:42 Condition: good 16:42 Discharge instructions given to patient, Instructed on discharge instructions, follow up and referral plans. Demonstrated understanding of instructions, follow-up care. 16:45 Patient left the ED. tp1 Signatures: Dispatcher [employer] EDAnabella Espinoza, RN Jill Neumann Victoria, RN RN candice1 Natasha Hutchins tp1 Anat Waddell mb7 Sanjuanita Olivier PA PA en
[2021-12-01 16:56] VITALS: TEMP 97.2; O2SAT 100
[2021-12-01 17:01] VITALS: BP 128/73
--- NOTE | 2021-12-02 13:48 | EKG ---
Test Date: 2021-12-01 Test Time: 14:57:27 Thermostat Maker: MARISA MEASUREMENT RESULTS: Intervals: Rate: 83 CA: 142 QRSD: 82 QT: 338 QTc: 397 [place]: P: 62 CA: 142 QRS: -2 T: 179 INTERPRETIVE STATEMENTS: Normal sinus rhythm Low voltage QRS Cannot rule out Anterior infarct, age undetermined Abnormal ECG Compared to ECG 10/30/2021 21:36:20 No significant changes Electronically Signed On 12-02-21 13:45:52 CDT by Jeb Rodas
== END 2021-12-01 16:45 | disposition home or self-care (01) ==
LOC: ER 14:22
DX: R07.89 Other chest pain (principal); E11.9 Type 2 diabetes mellitus without complications; I10 Essential (primary) hypertension; I25.2 Old myocardial infarction; Z88.0 Allergy status to penicillin; Z88.1 Allergy status to other antibiotic agents; Z88.2 Allergy status to sulfonamides; Z88.3 Allergy status to other anti-infective agents
CPT/HCPCS: 36415; 71045; 80048; 84484; 85025; 93005; 99285

== ENCOUNTER 2021-12-13 20:52 | Emergency (ER) | payer OTHER, SELFPAY ==
--- OUTSIDE RECORDS SUMMARY | 2021-12-13 20:55 | XMS REPORT | Continuity of Care Document ---
:[address] [facility] t Address [address] [place] [address] Dr. Marshall [address] [place] [id number] Care Team Providers Name Role Phone Unavailable Unavailable Unavailable Problems This patient has no known problems. Allergies, Adverse Reactions, Alerts This patient has no known allergies or adverse reactions. Medications This patient has no known medications. Procedures This patient has no known procedures. Results This patient has no known results.
[2021-12-13 21:30] LABS: Absolute Lymphocytes (CBC) 2.6 K/uL (0.7-4.9); Hematocrit 35.2 % (36.0-45.0); Lymphocytes % 38.5 % (15.3-44.8); MCV 91.2 fL (80-100); MPV 7.9 fL (7.6-11.3); RBC Red Blood Cell Count 3.86 M/uL (3.86-4.86)
[2021-12-13 21:48] LABS: Albumin 3.9 g/dL (3.4-5.0); Bilirubin Total 0.3 mg/dL (0.2-1.0); Potassium 3.8 mmol/L (3.5-5.1); Protein, Total 7.3 g/dL (6.4-8.2)
[2021-12-13 21:55] LABS: Protime INR 0.99
--- NOTE | 2021-12-13 21:56 | ER ---
Nurse's Notes [facility] Name: Rachael Knox Age: 36 yrs Sex: Female : 1985 Arrival Date: 12/13/2021 Time: 20:57 Bed 8 Private MD: Diagnosis: Anemia, unspecified Presentation: 12/13 20:57 Chief complaint: Patient states: dizziness for three days and heavy menstrual cycle for aa9 5 days. Coronavirus screen: Vaccine status: Patient reports being unvaccinated. At this time, the client does not indicate any symptoms associated with coronavirus-19. Ebola Screen: No symptoms or risks identified at this time. Initial Sepsis Screen: Does the patient meet any 2 criteria? No. Patient's initial sepsis screen is negative. Initial Sepsis Screen: Does the patient have a suspected source of infection? No. Patient's initial sepsis screen is negative. Risk Assessment: Do you want to hurt yourself or someone else? Patient reports no desire to harm self or others. Onset of symptoms was December 10, 2021. 20:57 Method Of Arrival: EMS: [facility] aa9 20:57 Acuity: DARSHAN 3 aa9 21:05 Care prior to arrival: Medication(s) given: zofran 4 mg, IV initiated. 20 GA, in the aa9 right antecubital area. Triage Assessment: 21:00 General: Appears in no apparent distress. uncomfortable, Behavior is cooperative, aa9 anxious. Pain: Complains of pain in abdomen Pain currently is 7 out of 10 on a pain scale. Is chronic. 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 - Social history:: Smoking status: Patient denies any tobacco usage or history of. Screenin:02 Abuse screen: Denies threats or abuse. Denies injuries from another. Nutritional aa9 screening: No deficits noted. Tuberculosis screening: No symptoms or risk factors identified. Fall Risk None identified. Assessment: 21:03 General: Appears in no apparent distress. uncomfortable, Behavior is calm, anxious. aa9 Pain: Complains of pain in abdomen Pain currently is 7 out of 10 on a pain scale. Is chronic. Vital Signs: 20:57 BP 136 / 98; Pulse 81; Resp 16 S; Temp 98.6(O); Pulse Ox 98% on R/A; Weight 151.95 kg; aa9 Height 5 ft. 5 in. (165.10 cm); Pain 7/10; 21:01 BP 136 / 98; Pulse 81; Resp 16 S; Temp 98.6(O); Pulse Ox 98% on R/A; Weight 151.95 kg; aa9 Height 5 ft. 5 in. (165.10 cm); Pain 7/10; 21:58 BP 124 / 89; Pulse 63; Resp 18 S; Pulse Ox 96% on R/A; as6 21:01 Body Mass Index 55.75 (151.95 kg, 165.10 cm) aa9 ED Course: 20:57 Patient arrived in ED. aa9 20:59 Triage completed. aa9 21:00 Marisol Bowling MD is Attending Physician. sp3 21:02 Patient has correct armband on for positive identification. Bed in low position. Call aa9 light in reach. 21:05 Smooth Wilson, VITA is Primary Nurse. as6 21:06 Maintain EMS IV. Dressing intact. Good blood return noted. Site clean \T\ dry. Gauge \T\ aa 9 site: 20 G R AC. 22:09 No provider procedures requiring assistance completed. IV discontinued, intact, aa9 bleeding controlled, No redness/swelling at site. Pressure dressing applied. 22:10 Arm band placed on. aa9 Administered Medications: No medications were administered Medication: 22:10 VIS not applicable for this client. aa9 Outcome: 21:56 Discharge ordered by . sp3 22:09 Discharged to home ambulatory. aa9 22:09 Condition: stable 22:09 Discharge instructions given to patient, Instructed on discharge instructions, follow up and referral plans. Demonstrated understanding of instructions, follow-up care. 22:10 Patient left the ED. aa9 Signatures: Marisol Bowling MD MD sp3 Smooth Wilson RN RN as6 Berkley Sifuentes RN RN aa9
--- NOTE | 2021-12-13 21:56 | EDPHYS ---
Physician Documentation [facility] Name: Rachael Knox Age: 36 yrs Sex: Female : 1985 Arrival Date: 12/13/2021 Time: 20:57 Bed 8 Private MD: ED Physician Marisol Bowling HPI: 12/13 21:17 This 36 yrs old Female presents to ER via EMS with complaints of sp3 Lightheadedness. 21:17 6-year-old female with a history of bipolar disease, hypertension, asthma, anemia sp3 secondary to heavy menses not currently on oral contraception presents to the ED for chief complaint 2 days of "lightheadedness" and reports of near syncope. Last menstrual cycle was over a week ago and she reports heavy bleeding. No full syncope, seizure, headache, fever, chest pain, shortness of breath, abdominal pain, nausea, vomiting, diarrhea, rash, trauma, or any other symptoms on ROS noted at this time. Patient is not on any iron supplements. Last abdominal surgery was in May 2021 where she had an appendectomy. She denies sexual activity or reports of .. 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 - Social history:: Smoking status: Patient denies any tobacco usage or history of. ROS: 21:18 Constitutional: Negative for fever, chills, and weight loss, Eyes: Negative for injury, sp3 pain, redness, and discharge, ENT: Negative for injury, pain, and discharge, Neck: Negative for injury, pain, and swelling, Cardiovascular: Negative for chest pain, palpitations, and edema, Respiratory: Negative for shortness of breath, cough, wheezing, and pleuritic chest pain, Abdomen/GI: Negative for abdominal pain, nausea, vomiting, diarrhea, and constipation, Back: Negative for injury and pain, MS/Extremity: Negative for injury and deformity, Skin: Negative for injury, rash, and discoloration, Allergy/Immunology: Negative for hives, rash, and allergies, Endocrine: Negative for neck swelling, polydipsia, polyuria, polyphagia, and marked weight changes. 21:18 All other systems are negative. Exam: 21:18 Constitutional: This is a well developed, well nourished patient who is awake, alert, sp3 and in no acute distress. Neck: Trachea midline, no thyromegaly or masses palpated, and no cervical lymphadenopathy. Supple, full range of motion without nuchal rigidity, or vertebral point tenderness. No Meningismus. Chest/axilla: Normal chest wall appearance and motion. Nontender with no deformity. No lesions are appreciated. Cardiovascular: Regular rate and rhythm with a normal S1 and S2. No gallops, murmurs, or rubs. Normal PMI, no JVD. No pulse deficits. Respiratory: Lungs have equal breath sounds bilaterally, clear to auscultation and percussion. No rales, rhonchi or wheezes noted. No increased work of breathing, no retractions or nasal flaring. Abdomen/GI: Soft, non-tender, with normal bowel sounds. No distension or tympany. No guarding or rebound. No evidence of tenderness throughout. Back: No spinal tenderness. No costovertebral tenderness. Full range of motion. Neuro: Awake and alert, GCS 15, oriented to person, place, time, and situation. Cranial nerves II-XII grossly intact. Motor strength 5/5 in all extremities. Sensory grossly intact. Cerebellar exam normal. Normal gait. Psych: Awake, alert, with orientation to person, place and time. Behavior, mood, and affect are within normal limits. Vital Signs: 20:57 BP 136 / 98; Pulse 81; Resp 16 S; Temp 98.6(O); Pulse Ox 98% on R/A; Weight 151.95 kg; aa9 Height 5 ft. 5 in. (165.10 cm); Pain 7/10; 21:01 BP 136 / 98; Pulse 81; Resp 16 S; Temp 98.6(O); Pulse Ox 98% on R/A; Weight 151.95 kg; aa9 Height 5 ft. 5 in. (165.10 cm); Pain 7/10; 21:58 BP 124 / 89; Pulse 63; Resp 18 S; Pulse Ox 96% on R/A; as6 21:01 Body Mass Index 55.75 (151.95 kg, 165.10 cm) aa9 MDM: 21:04 Patient medically screened. sp3 21:18 Data reviewed: vital signs, nurses notes. ED course: Vital signs currently normal and sp3 patient has a normal neurological exam. Will obtain labs looking for anemia otherwise if negative we will discharge patient to PCP follow-up. Patient is in no acute distress resting comfortably and I am not highly suspicious for any critical findings.. 21:47 ED course: Labs reviewed and hemoglobin is 11.8. We will discharge patient home with sp3 his instructions for [id number] iron and follow-up with PCP.. 12/13 21:03 Order name: CBC with Diff; Complete Time: 21:47 sp3 12/13 21:03 Order name: CMP; Complete Time: 21:50 sp3 12/13 21:03 Order name: IV Saline Lock; Complete Time: 21:06 sp3 12/13 21:03 Order name: Labs collected and sent; Complete Time: 21:26 sp3 12/13 21:03 Order name: PT-INR; Complete Time: 21:56 sp3 Administered Medications: No medications were administered Disposition Summary: 12/13/21 21:56 Discharge Ordered Location: Home sp3 Condition: Stable sp3 Diagnosis - Anemia, unspecified sp3 Followup: sp3 - With: Private Physician - When: Upon discharge from the Emergency Department - Reason: Continuance of care Discharge Instructions: - Discharge Summary Sheet sp3 - Anemia sp3 Forms: - Medication Reconciliation Form sp3 - Thank You Letter sp3 - Antibiotic Education sp3 - Prescription Opioid Use sp3 Signatures: Dispatcher [employer] EDMarisol Johnson MD MD sp3 Berkley Sifuentes, VITA RN aa9
[2021-12-14 00:26] VITALS: TEMP 98.6
[2021-12-14 00:30] VITALS: BP 124/89; O2SAT 96
== END 2021-12-13 22:10 | disposition home or self-care (01) ==
LOC: ER 20:52
DX: D64.9 Anemia, unspecified (principal); Z88.0 Allergy status to penicillin; Z88.1 Allergy status to other antibiotic agents; Z88.2 Allergy status to sulfonamides; Z88.3 Allergy status to other anti-infective agents
CPT/HCPCS: 36415; 80053; 85025; 85610; 99283

== ENCOUNTER 2021-12-19 13:27 | Emergency (ER) | payer OTHER, SELFPAY ==
[2021-12-19] MEDS ORDERED: MORPHINE 4 MG/ML SYR ONE (14:14)
[2021-12-19] MEDS ORDERED: ONDANSETRON 4 MG/2 ML VIAL ONE (14:14)
[2021-12-19 14:39] LABS: Absolute Lymphocytes (CBC) 1.9 K/uL (0.7-4.9); Hematocrit 35.9 % (36.0-45.0); Lymphocytes % 33.2 % (15.3-44.8); MCV 92.4 fL (80-100); MPV 8.3 fL (7.6-11.3); RBC Red Blood Cell Count 3.89 M/uL (3.86-4.86)
[2021-12-19 14:45] LABS: Protime INR 0.98
[2021-12-19 14:54] LABS: Albumin 4.2 g/dL (3.4-5.0); Bilirubin Direct 0.1 mg/dL (0-0.2); Bilirubin Total 0.4 mg/dL (0.2-1.0); Magnesium 2.5 mg/dL (1.8-2.4); Potassium 3.5 mmol/L (3.5-5.1); Protein, Total 7.8 g/dL (6.4-8.2); Troponin High Sensitivity 3.3 pg/mL (<58.9)
--- NOTE | 2021-12-19 15:31 | RAD REPORT ---
EXAM DESCRIPTION: RAD - Chest Single View - 12/19/2021 3:03 pm CLINICAL HISTORY: CHEST PAIN COMPARISON: Portable 12/01/2021 TECHNIQUE: AP portable chest image was obtained 12/19/2021 3:03 pm . FINDINGS: Lung volumes are low. Shallow inspiration, body habitus affects and under penetrated techn ique accentuate lung parenchymal findings. No focal mass or consolidation. No significant failure or volume overload. Heart size is accentuated by exam limitations. Upper lobe vasculature within normal limits. No measur able pleural effusion and no pneumothorax. No acute bony abnormality seen. No acute aortic findings s uspected. IMPRESSION: Limited portable study without acute cardiopulmonary finding.
[2021-12-19] MEDS ORDERED: ACETAMINOPHEN 500 MG TAB ONE (18:25)
--- NOTE | 2021-12-19 18:26 | ER ---
Nurse's Notes [facility] Name: Rachael Knox Age: 36 yrs Sex: Female : 1985 Arrival Date: 12/19/2021 Time: 13:30 Bed 17 Private MD: Diagnosis: Chest pain, unspecified;Anxiety disorder, unspecified Presentation: 12/19 13:37 Coronavirus screen: At this time, the client does not indicate any symptoms associated bp with coronavirus-19. Ebola Screen: No symptoms or risks identified at this time. Care prior to arrival: None. 13:37 Method Of Arrival: EMS: [facility] bp 13:37 Chief complaint: EMS states: SHORTNESS OF BREATH. Onset of symptoms was December 19, 2021. bp 13:39 Initial Sepsis Screen: Does the patient meet any 2 criteria? No. Patient's initial bp sepsis screen is negative. Does the patient have a suspected source of infection? No. Patient's initial sepsis screen is negative. Risk Assessment: Do you want to hurt yourself or someone else? Patient reports no desire to harm self or others. 13:39 Acuity: DARSHAN 2 bp Triage Assessment: 13:37 General: Appears obese, Behavior is cooperative, appropriate for age, anxious. Pain: bp Denies pain. EENT: No deficits noted. Neuro: No deficits noted. Cardiovascular: Rhythm is sinus rhythm. Respiratory: Reports shortness of breath. GI: No signs and/or symptoms were reported involving the gastrointestinal system. : No signs and/or symptoms were reported regarding the genitourinary system. Derm: No deficits noted. Musculoskeletal: No deficits noted. Historical: - Allergies: 13:38 Azithromycin; bp 13:38 Bactrim; bp 13:38 mycins; bp 13:38 PENICILLINS; bp 13:38 Sulfa (Sulfonamide Antibiotics); bp - Home Meds: 13:38 Pro-air [Active]; bp - PMHx: 13:38 Anemia; Anxiety; Asthma; Bipolar disorder; cardiac arrest; Hypertension; Hypothyroidism;bp - PSHx: 13:38 Appendectomy; section; hernia repair; Tonsillectomy; bp - Immunization history:: Adult Immunizations up to date. - Social history:: Smoking status: Patient denies any tobacco usage or history of. Screenin:41 Abuse screen: Denies threats or abuse. Denies injuries from another. Nutritional bp screening: No deficits noted. Tuberculosis screening: No symptoms or risk factors identified. Fall Risk None identified. Assessment: 13:41 General: SEE TRIAGE NOTE. bp 15:26 Reassessment: No changes from previously documented assessment. Patient and/or family bp updated on plan of care and expected duration. Pain level reassessed. 17:31 Reassessment: REPEAT TROP DRAWN/SENT. bp 18:24 Reassessment: No changes from previously documented assessment. Patient and/or family bp updated on plan of care and expected duration. Pain level reassessed. 18:39 Reassessment: PT D/C HOME, DX WITH ANXIETY. bp Vital Signs: 13:37 BP 158 / 102; Pulse 77; Resp 24; Temp 97.8; Pulse Ox 98% ; bp 13:45 BP 151 / 106; Pulse 74; Resp 16; Pulse Ox 96% on R/A; bp 15:25 BP 118 / 85; Pulse 61; Resp 16; Pulse Ox 97% ; bp 17:29 BP 112 / 80; Pulse 55; Resp 16; Pulse Ox 93% ; bp 18:24 BP 126 / 76; Pulse 74; Resp 16; Pulse Ox 96% ; bp ED Course: 13:30 Patient arrived in ED. em1 13:34 Adithya Guillen, RN is Primary Nurse. bp 13:40 Triage completed. bp 13:41 Arm band placed on. bp 13:41 Patient has correct armband on for positive identification. Bed in low position. Call bp light in reach. Side rails up X2. 13:45 Inserted saline lock: 22 gauge in right antecubital area, using aseptic technique. bp Blood collected. 13:52 Kang Clemente PA is PHCP. cp 13:52 Kang Gifford MD is Attending Physician. cp 15:05 XRAY Chest (1 view) In Process Unspecified. EDMS 18:39 No provider procedures requiring assistance completed. IV discontinued, intact, bp bleeding controlled, No redness/swelling at site. Pressure dressing applied. Administered Medications: 14:20 Drug: Zofran (Ondansetron) 4 mg Route: IVP; Site: right antecubital; bp 17:31 Follow up: Response: No adverse reaction bp 14:20 Drug: morphine 4 mg Route: IVP; Infused Over: 4 mins; Site: right antecubital; bp 17:32 Follow up: Response: Pain is decreased bp 18:19 Drug: Tylenol 1000 mg Route: PO; bp 18:25 Follow up: Response: No adverse reaction bp Medication: 13:41 VIS not applicable for this client. bp Outcome: 18:25 Discharge ordered by . cp 18:39 Discharged to home ambulatory. bp 18:39 Condition: stable 18:39 Discharge instructions given to patient, Instructed on discharge instructions, follow up and referral plans. medication usage, Demonstrated understanding of instructions, follow-up care, medications, Prescriptions given X 2. 18:43 Patient left the ED. bp Signatures: Dispatcher [employer] EDMS Cody Kwon em1 Kang Clemente PA PA cp Peltier, Brian, RN RN bp Corrections: (The following items were deleted from the chart) 13:40 13:37 Method Of Arrival: EMS bp bp 18:19 13:37 BP 158 / 102; Pulse 77bpm; Resp 24bpm; Pulse Ox 98%; bp bp
--- NOTE | 2021-12-19 18:26 | EDPHYS ---
Physician Documentation [facility] Name: Rachael Knox Age: 36 yrs Sex: Female : 1985 Arrival Date: 12/19/2021 Time: 13:30 Bed 17 Private MD: ED Physician Kang Gifford HPI: 12/19 13:58 This 36 yrs old Female presents to ER via EMS with complaints of Chest Pain. cp 13:58 The patient or guardian reports chest pain that is located primarily in the left side cp of chest. 13:58 The pain does not radiate. Associated signs and symptoms: Pertinent positives: cp shortness of breath, Pertinent negatives: abdominal pain, lower extremity pain, lower extremity swelling, palpitations, syncope, vomiting. 13:58 The chest pain is described as sharp. Duration: The patient or guardian reports a cp single episode, that is still ongoing, and worsening. Modifying factors: the symptoms are aggravated by deep breath, movement. Historical: - Allergies: 13:38 Azithromycin; bp 13:38 Bactrim; bp 13:38 mycins; bp 13:38 PENICILLINS; bp 13:38 Sulfa (Sulfonamide Antibiotics); bp - Home Meds: 13:38 Pro-air [Active]; bp - PMHx: 13:38 Anemia; Anxiety; Asthma; Bipolar disorder; cardiac arrest; Hypertension; Hypothyroidism;bp - PSHx: 13:38 Appendectomy; section; hernia repair; Tonsillectomy; bp - Immunization history:: Adult Immunizations up to date. - Social history:: Smoking status: Patient denies any tobacco usage or history of. ROS: 14:00 Constitutional: Negative for body aches, chills, fever, poor PO intake. cp 14:00 Cardiovascular: Positive for chest pain, Negative for edema, palpitations. cp 14:00 Eyes: Negative for injury, pain, redness, and discharge. cp 14:00 ENT: Negative for drainage from ear(s), ear pain, sore throat, difficulty swallowing, difficulty handling secretions. 14:00 Respiratory: Positive for shortness of breath, Negative for cough, wheezing. 14:00 Abdomen/GI: Negative for abdominal pain, vomiting, diarrhea, constipation. 14:00 : Negative for urinary symptoms. 14:00 Neuro: Negative for altered mental status, dizziness, headache, syncope, weakness. 14:00 All other systems are negative. Exam: 14:05 Constitutional: The patient appears in no acute distress, alert, awake, cp non-diaphoretic, non-toxic, well developed, well nourished, obese, uncomfortable, tearful 14:05 Head/Face: Normocephalic, atraumatic. cp 14:05 Eyes: Periorbital structures: appear normal, Conjunctiva: normal, no exudate, no injection, Sclera: no appreciated abnormality, Lids and lashes: appear normal, bilaterally. 14:05 ENT: External ear(s): are unremarkable, Nose: is normal, Mouth: Lips: moist, Oral mucosa: pink and intact, moist, Posterior pharynx: Airway: no evidence of obstruction, patent. 14:05 Neck: ROM/movement: is normal, is supple, without pain, no range of motions limitations, no meningismus. 14:05 Chest/axilla: Inspection: normal. 14:05 Cardiovascular: Rate: normal, Rhythm: regular, Edema: ankle edema, that is mild, JVD: is not appreciated. 14:05 Respiratory: the patient does not display signs of respiratory distress, Respirations: normal, no use of accessory muscles, no retractions, labored breathing, is not present, Breath sounds: are clear throughout, no decreased breath sounds, no stridor, no wheezing. 14:05 Abdomen/GI: Inspection: obese Bowel sounds: active, all quadrants, Palpation: abdomen is soft and non-tender, in all quadrants. 14:05 Back: CVA tenderness, is absent. 14:05 Neuro: Orientation: to person, place \T\ time. Mentation: is normal, Cerebellar function: is grossly normal, Motor: moves all fours, strength is normal, Sensation: is normal. 14:15 ECG was reviewed by the Attending Physician. cp Vital Signs: 13:37 BP 158 / 102; Pulse 77; Resp 24; Temp 97.8; Pulse Ox 98% ; bp 13:45 BP 151 / 106; Pulse 74; Resp 16; Pulse Ox 96% on R/A; bp 15:25 BP 118 / 85; Pulse 61; Resp 16; Pulse Ox 97% ; bp 17:29 BP 112 / 80; Pulse 55; Resp 16; Pulse Ox 93% ; bp 18:24 BP 126 / 76; Pulse 74; Resp 16; Pulse Ox 96% ; bp MDM: 14:05 Patient medically screened. cp 14:30 Differential diagnosis: acute myocardial infarction, acute pericarditis, anxiety, chest cp wall pain, cholecystitis, Cholelithiasis costochondritis, gastroesophageal reflux disease (GERD), pancreatitis, pericarditis, pleurisy, pneumonia, pneumothorax, pulmonary embolus. 18:25 Data reviewed: vital signs, nurses notes, lab test result(s), EKG, radiologic studies, cp plain films. 18:25 Test interpretation: by ED physician or midlevel provider: ECG, plain radiologic cp studies. Response to treatment: the patient's symptoms have markedly improved after treatment, and as a result, I will discharge patient. Special discussion: Based on the patient's history, exam, and Dx evaluation, there is no indication for emergent intervention or inpatient Tx. It is understood by the patient/guardian that if the Sx's persist or worsen they need to return immediately for re-evaluation. 12/19 13:57 Order name: Basic Metabolic Panel; Complete Time: 14:57 12/19 16:56 Interpretation: Normal except: GFR 81. 12/19 13:57 Order name: CBC with Diff; Complete Time: 14:57 12/19 13:57 Order name: LFT's; Complete Time: 14:57 12/19 13:57 Order name: Magnesium; Complete Time: 14:57 12/19 13:57 Order name: NT PRO-BNP; Complete Time: 14:57 12/19 13:57 Order name: PT-INR; Complete Time: 15:34 12/19 15:34 Interpretation: Reviewed. 12/19 13:57 Order name: Troponin HS; Complete Time: 14:57 12/19 13:57 Order name: XRAY Chest (1 view); Complete Time: 15:34 12/19 15:34 Interpretation: Report review. 12/19 14:59 Order name: LAB Add On 12/19 15:15 Order name: D-Dimer; Complete Time: 15:34 EDAK 12/19 17:20 Order name: Troponin HS: repeat 1730; Complete Time: 18:24 12/19 18:24 Interpretation: Reviewed. 12/19 13:57 Order name: EKG; Complete Time: 14:03 12/19 13:57 Order name: Cardiac monitoring; Complete Time: 14:30 12/19 13:57 Order name: EKG - Nurse/Tech; Complete Time: 14:30 12/19 13:57 Order name: IV Saline Lock; Complete Time: 14:30 12/19 13:57 Order name: Labs collected and sent; Complete Time: 14:30 12/19 13:57 Order name: O2 Per Protocol; Complete Time: 14:00 12/19 13:57 Order name: O2 Sat Monitoring; Complete Time: 14:00 12/19 15:50 Order name: Diet Heart Healthy; Complete Time: 15:53 cp EC:15 Rate is 73 beats/min. Rhythm is regular. NH interval is normal. QRS interval is cp prolonged at 104 msec. QT interval is normal. Interpreted by me. Reviewed by me. Administered Medications: 14:20 Drug: Zofran (Ondansetron) 4 mg Route: IVP; Site: right antecubital; bp 17:31 Follow up: Response: No adverse reaction bp 14:20 Drug: morphine 4 mg Route: IVP; Infused Over: 4 mins; Site: right antecubital; bp 17:32 Follow up: Response: Pain is decreased bp 18:19 Drug: Tylenol 1000 mg Route: PO; bp 18:25 Follow up: Response: No adverse reaction bp Disposition Summary: 12/19/21 18:25 Discharge Ordered Location: Home cp Problem: new cp Symptoms: have improved cp Condition: Stable cp Diagnosis - Chest pain, unspecified cp - Anxiety disorder, unspecified cp Followup: cp - With: Private Physician - When: 1 - 2 days - Reason: Recheck today's complaints Discharge Instructions: - Discharge Summary Sheet cp - Nonspecific Chest Pain, Adult cp - Generalized Anxiety Disorder, Adult cp - Managing Anxiety, Adult cp Forms: - Medication Reconciliation Form cp - Thank You Letter cp - Antibiotic Education cp - Prescription Opioid Use cp Prescriptions: - Vistaril 50 mg Oral capsule - take 1 capsule by ORAL route 4 times per day as needed for anxiety; 30 capsule; cp Refills: 0, Product Selection Permitted - Tylenol-Codeine #3 300 mg-30 mg Oral - take 2 tablet by ORAL route every 8-10 hours; 12 tablet; Refills: 0, Product cp Selection Permitted Signatures: Dispatcher [employer] EDMS Kang Clemente PA PA cp Adithya Guillen, RN RN bp Corrections: (The following items were deleted from the chart) 15:16 15:03 D-[email or web address] ordered. EDMS EDMS
[2021-12-19 18:49] VITALS: TEMP 97.8
[2021-12-19 18:59] VITALS: BP 126/76; O2SAT 96
--- NOTE | 2021-12-20 15:22 | EKG ---
Test Date: 2021-12-19 Test Time: 14:11:57 Senior Applications Engineer: JANEE MEASUREMENT RESULTS: Intervals: Rate: 73 GA: 152 QRSD: 104 QT: 386 QTc: 425 [place]: P: 49 GA: 152 QRS: 16 T: 19 INTERPRETIVE STATEMENTS: Normal sinus rhythm Low voltage QRS Cannot rule out Anterior infarct, age undetermined Abnormal ECG Compared to ECG 12/01/2021 14:57:27 No significant changes Electronically Signed On 12-20-21 15:19:44 CDT by Jeb Rodas
== END 2021-12-19 18:43 | disposition home or self-care (01) ==
LOC: ER 13:27
DX: R07.89 Other chest pain (principal); F41.9 Anxiety disorder, unspecified; J45.909 Unspecified asthma, uncomplicated; I10 Essential (primary) hypertension; Z88.0 Allergy status to penicillin; Z88.1 Allergy status to other antibiotic agents; Z88.2 Allergy status to sulfonamides; Z88.3 Allergy status to other anti-infective agents
CPT/HCPCS: 36415; 71045; 80048; 80076; 83735; 83880; 84484; 85025; 85379; 85610; 93005; 96374; 96375; 99284; J2405

== ENCOUNTER 2022-02-22 19:19 | Emergency (ER) | payer SELFPAY ==
--- OUTSIDE RECORDS SUMMARY | 2022-02-22 19:22 | XMS REPORT | Continuity of Care Document ---
:[address] [facility] t Address [address] [place] [address] Dr. Marshall [address] [place] [id number] Care Team Providers Name Role Phone Unavailable Unavailable Unavailable Problems This patient has no known problems. Allergies, Adverse Reactions, Alerts This patient has no known allergies or adverse reactions. Medications This patient has no known medications. Procedures This patient has no known procedures. Results This patient has no known results.
[2022-02-22 20:28] LABS: Absolute Lymphocytes (CBC) 1.3 K/uL (0.7-4.9); Hematocrit 37.9 % (36.0-45.0); Lymphocytes % 14.1 % (15.3-44.8); MCV 92.8 fL (80-100); RBC Red Blood Cell Count 4.09 M/uL (3.86-4.86)
[2022-02-22] MEDS ORDERED: ONDANSETRON 4 MG/2 ML VIAL ONE (20:46)
[2022-02-22] MEDS ORDERED: MORPHINE 4 MG/ML SYR ONE (20:46)
[2022-02-22 20:48] LABS: Potassium 3.6 mmol/L (3.5-5.1); Troponin High Sensitivity 3.3 pg/mL (<58.9)
--- NOTE | 2022-02-22 20:56 | RAD REPORT ---
EXAM DESCRIPTION: RAD - Chest Single View - 02/22/2022 8:47 pm CLINICAL HISTORY: CHEST PAIN COMPARISON: Portable 12/19/2021 TECHNIQUE: AP portable chest image was obtained 02/22/2022 8:47 pm . FINDINGS: Lung volumes are low. Large body habitus and under penetrated technique accentuate all tutu st findings. No peripheral mass or consolidation. No significant failure or volume overload. Heart and vasculature are normal for shallow inspiration exam. No measurable pleural effusion and no pneumothorax. No acute bony abnormality seen. No acute aortic findings suspected. IMPRESSION: No acute cardiopulmonary process.
[2022-02-22] MEDS ORDERED: LORAZEPAM 1 MG TABLET ONE (22:44)
[2022-02-22] MEDS ORDERED: TRAMADOL HCL 50 MG TAB ONE (22:45)
--- NOTE | 2022-02-22 23:39 | ER ---
Nurse's Notes [facility] Name: Rachael Knox Age: 36 yrs Sex: Female : 1985 Arrival Date: 02/22/2022 Time: 19:21 Bed 2 Private MD: Diagnosis: Chest pain, unspecified;Adjustment disorder with anxiety;Anxiety disorder, unspecified Presentation: 02/22 19:55 Chief complaint: Patient states: I have had chest tightness and discomfort fot the past bm7 three days. I am nervous because I went into cardiac arrest in May and I was intubated and in the ICU for 27 days. Coronavirus screen: At this time, the client does not indicate any symptoms associated with coronavirus-19. Ebola Screen: No symptoms or risks identified at this time. Initial Sepsis Screen: Does the patient meet any 2 criteria? No. Patient's initial sepsis screen is negative. Does the patient have a suspected source of infection? No. Patient's initial sepsis screen is negative. Risk Assessment: Do you want to hurt yourself or someone else? Patient reports no desire to harm self or others. Onset of symptoms was February 19, 2022. Care prior to arrival: None. 19:55 Method Of Arrival: Ambulatory bm7 19:55 Method Of Arrival: Ambulatory bm7 19:55 Acuity: DARSHAN 2 bm7 Triage Assessment: 19:57 General: Appears in no apparent distress. uncomfortable, obese, Behavior is calm, bm7 cooperative, appropriate for age. Pain: Complains of pain in anterior aspect of left upper chest. EENT: No deficits noted. No signs and/or symptoms were reported regarding the EENT system. Neuro: No deficits noted. Cardiovascular: Reports chest pain, Capillary refill < 3 seconds Patient's skin is warm and dry. Rhythm is sinus rhythm Chest pain is described as diffuse. Respiratory: No deficits noted. GI: No deficits noted. No signs and/or symptoms were reported involving the gastrointestinal system. : No deficits noted. No signs and/or symptoms were reported regarding the genitourinary system. Derm: No deficits noted. No signs and/or symptoms reported regarding the dermatologic system. Musculoskeletal: No deficits noted. No signs and/or symptoms reported regarding the musculoskeletal system. 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 - Social history:: Smoking status: Patient denies any tobacco usage or history of. Screenin:25 Abuse screen: Denies threats or abuse. Nutritional screening:. Tuberculosis screening: ke1 No symptoms or risk factors identified. Fall Risk No fall in past 12 months (0 pts). No secondary diagnosis (0 pts). IV access (20 points). Ambulatory Aid- None/Bed Rest/Nurse Assist (0 pts). Gait- Normal/Bed Rest/Wheelchair (0 pts) Mental Status- Oriented to own ability (0 pts). Total Brink Fall Scale indicates No Risk (0-24 pts). Assessment: 20:26 Pain: Pain does not radiate. Pain began suddenly. ke1 21:43 Reassessment: No changes from previously documented assessment. Patient and/or family vc1 updated on plan of care and expected duration. Pain level reassessed. Patient is alert, oriented x 3, equal unlabored respirations, skin warm/dry/pink. Vital Signs: 19:55 BP 147 / 92; Pulse 89; Resp 16; Temp 98.7(TE); Pulse Ox 98% on R/A; Weight 149.69 kg [facility] (R); Height 5 ft. 5 in. (165.10 cm); Pain 8/10; 20:15 BP 149 / 94; Pulse 78; Resp 12; Pulse Ox 96% ; vc1 21:00 BP 143 / 98; Pulse 77; Resp 12; Pulse Ox 93% on R/A; vc1 21:44 BP 125 / 72; Pulse 72; Resp 13; Pulse Ox 94% ; Pain 7/10; vc1 19:55 Body Mass Index 54.91 (149.69 kg, 165.10 cm) [facility] ED Course: 19:21 Patient arrived in ED. bp1 19:57 Triage completed. bm7 19:57 Arm band placed on right wrist. bm7 20:07 Sofía Brush, VITA is Primary Nurse. ke1 20:24 Rajan Samuel MD is Attending Physician. kdr 20:24 Inserted saline lock: 20 gauge in right antecubital area, using aseptic technique. ke1 20:26 Patient has correct armband on for positive identification. Bed in low position. Call ke1 light in reach. Side rails up X 1. Client placed on continuous cardiac and pulse oximetry monitoring. NIBP monitoring applied. quality assurance monitor on. Pulse ox on. NIBP on. 20:26 Patient maintains SpO2 saturation greater than 95% on room air. ke1 23:58 No provider procedures requiring assistance completed. IV discontinued. ke1 Administered Medications: 20:51 Drug: morphine 4 mg Route: IVP; Infused Over: 4 mins; Site: right antecubital; vc1 21:44 Follow up: BP 125 / 72; Pulse 72 bpm; Resp 13 bpm; Pulse Ox 94% ; Pain 7/10 Adult; vc1 Response: No adverse reaction; Pain is unchanged, physician notified; RASS: Alert and Calm (0) 20:51 Drug: Zofran (Ondansetron) 4 mg Route: IVP; Site: right antecubital; vc1 21:44 Follow up: Response: No adverse reaction; Marked relief of symptoms vc1 22:48 Drug: Ativan (LORazepam) 1 mg Route: PO; vc1 22:48 Drug: traMADol 50 mg Route: PO; vc1 Medication: 21:44 VIS not applicable for this client. vc1 Outcome: 23:38 Discharge ordered by . kdr 23:58 Discharged to home ambulatory. ke1 23:58 Condition: good 23:58 Discharge instructions given to patient. 23:59 Patient left the ED. ke1 Signatures: Rajan Samuel MD MD kdr Johnna Asher bp1 Johnna Hussein RN RN bm7 Makenzie Stone RN RN vc1 Sofía Brush, VTIA RN ke1
--- NOTE | 2022-02-22 23:39 | EDPHYS ---
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 - Social history:: Smoking status: Patient denies any tobacco usage or history of. Vital Signs: 19:55 BP 147 / 92; Pulse 89; Resp 16; Temp 98.7(TE); Pulse Ox 98% on R/A; Weight 149.69 kg 7 (R); Height 5 ft. 5 in. (165.10 cm); Pain 8/10; 20:15 BP 149 / 94; Pulse 78; Resp 12; Pulse Ox 96% ; vc1 21:00 BP 143 / 98; Pulse 77; Resp 12; Pulse Ox 93% on R/A; vc1 21:44 BP 125 / 72; Pulse 72; Resp 13; Pulse Ox 94% ; Pain 7/10; vc1 19:55 Body Mass Index 54.91 (149.69 kg, 165.10 cm) 7 MDM: 23:38 Patient medically screened. kdr 02/22 20:00 Order name: Basic Metabolic Panel bm7 02/22 20:00 Order name: CBC with Diff bm7 02/22 20:00 Order name: Troponin HS bm7 02/22 20:29 Order name: CBC with Automated Diff; Complete Time: 21:43 EDMS 02/22 20:48 Order name: Basic Metabolic Panel; Complete Time: 21:43 EDMS 02/22 20:48 Order name: Troponin High Sensitivity; Complete Time: 21:43 EDME 02/22 20:00 Order name: XRAY Chest (1 view) [facility] 02/22 20:56 Order name: RAD; Complete Time: 21:43 EDME 02/22 22:07 Order name: Troponin High Sensitivity: Repeat 2 hours after initial draw kdr 02/22 23:14 Order name: Troponin High Sensitivity; Complete Time: 23:36 [facility] 02/22 20:00 Order name: EKG; Complete Time: 20:01 [facility] 02/22 20:00 Order name: Cardiac monitoring; Complete Time: 20:25 [facility] 02/22 20:00 Order name: EKG - Nurse/Tech; Complete Time: 20:00 [facility] 02/22 20:00 Order name: IV Saline Lock; Complete Time: 20:24 [facility] 02/22 20:00 Order name: Labs collected and sent; Complete Time: 20:24 [facility] 02/22 20:00 Order name: O2 Per Protocol; Complete Time: 20:25 [facility] 02/22 20:00 Order name: O2 Sat Monitoring; Complete Time: 20:25 [facility] Administered Medications: 20:51 Drug: morphine 4 mg Route: IVP; Infused Over: 4 mins; Site: right antecubital; vc1 21:44 Follow up: BP 125 / 72; Pulse 72 bpm; Resp 13 bpm; Pulse Ox 94% ; Pain 7/10 Adult; vc1 Response: No adverse reaction; Pain is unchanged, physician notified; RASS: Alert and Calm (0) 20:51 Drug: Zofran (Ondansetron) 4 mg Route: IVP; Site: right antecubital; vc1 21:44 Follow up: Response: No adverse reaction; Marked relief of symptoms vc1 22:48 Drug: Ativan (LORazepam) 1 mg Route: PO; vc1 22:48 Drug: traMADol 50 mg Route: PO; vc1 Disposition Summary: 02/22/22 23:38 Discharge Ordered Location: Home kdr Problem: new kdr Symptoms: have improved kdr Condition: Stable kdr Diagnosis - Chest pain, unspecified kdr - Adjustment disorder with anxiety kdr - Anxiety disorder, unspecified kdr Followup: kdr - With: Private Physician - When: 2 - 3 days - Reason: If symptoms return, Further diagnostic work-up, Recheck today's complaints, Continuance of care, Re-evaluation by your physician Discharge Instructions: - Discharge Summary Sheet kdr - Nonspecific Chest Pain, Adult, [id number] kdr - Panic Attack, [id number] kdr - Generalized Anxiety Disorder, Adult kdr Forms: - Medication Reconciliation Form kdr - Thank You Letter kdr Prescriptions: - Ativan 1 mg Oral Tablet - take 1 tablet by ORAL route every 8 hours As needed; 6 tablet; Refills: 0, kdr Product Selection Permitted Signatures: Dispatcher [employer] Rajan Claros MD MD kdr Johnna Hussein, RN RN bm7 Makenzie Stone RN RN vc1
[2022-02-23 00:27] VITALS: TEMP 98.7
[2022-02-23 00:44] VITALS: BP 125/72; O2SAT 94
--- NOTE | 2022-02-25 06:28 | EKG ---
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
== END 2022-02-22 23:59 | disposition home or self-care (01) ==
LOC: ER 19:19
DX: R07.9 Chest pain, unspecified (principal); F43.22 Adjustment disorder with anxiety; F41.9 Anxiety disorder, unspecified
CPT/HCPCS: 36415; 71045; 80048; 84484; 85025; 93005; 96374; 96375; 99285; J2405

== ENCOUNTER 2022-04-04 08:24 | Emergency (ER) | payer SELFPAY ==
--- OUTSIDE RECORDS SUMMARY | 2022-04-04 08:27 | XMS REPORT | Continuity of Care Document ---
:1985 Author Organization [facility] t Address [address] [place] [address] Dr. Marshall [address] [place] [id number] Care Team Providers Name Role Phone Unavailable Unavailable Unavailable Problems This patient has no known problems. Allergies, Adverse Reactions, Alerts This patient has no known allergies or adverse reactions. Medications This patient has no known medications. Procedures This patient has no known procedures. Results This patient has no known results.
--- NOTE | 2022-04-04 09:22 | ER ---
Nurse's Notes [facility] Name: Rachael Knox Age: 37 yrs Sex: Female : 1985 Arrival Date: 04/04/2022 Time: 08:29 Bed 19 [facility] MD: Diagnosis: Acute serous otitis media, recurrent, bilateral Presentation: 04/04 08:30 Chief complaint: Patient states: runny nose, nasal congestion, cough and ear ache that ss began 2-3 days ago. Coronavirus screen: Client presents with at least one sign or symptom that may indicate coronavirus-19. Ebola Screen: Patient denies exposure to infectious person. Patient denies travel to an Ebola-affected area in the 21 days before illness onset. Initial Sepsis Screen: Does the patient meet any 2 criteria? No. Patient's initial sepsis screen is negative. Does the patient have a suspected source of infection? No. Patient's initial sepsis screen is negative. Risk Assessment: Do you want to hurt yourself or someone else? Patient reports no desire to harm self or others. Onset of symptoms was April 01, 2022. 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 - Social history:: Smoking status: Patient denies any tobacco usage or history of. Screenin:25 Abuse screen: Denies threats or abuse. Denies injuries from another. Nutritional db screening: No deficits noted. Tuberculosis screening: No symptoms or risk factors identified. Fall Risk None identified. No fall in past 12 months (0 pts). No secondary diagnosis (0 pts). No IV (0 pts). Ambulatory Aid- None/Bed Rest/Nurse Assist (0 pts). Gait- Normal/Bed Rest/Wheelchair (0 pts) Mental Status- Oriented to own ability (0 pts). Total Brink Fall Scale indicates No Risk (0-24 pts). Assessment: 09:00 Reassessment: Patient appears in no apparent distress at this time. Patient and/or db family updated on plan of care and expected duration. Pain level reassessed. Patient is alert, oriented x 3, equal unlabored respirations, skin warm/dry/pink. states has cough and symptoms after kids were recently sick. General: Appears in no apparent distress. comfortable, Behavior is calm, cooperative, appropriate for age, quiet. Pain: Complains of pain in face, right ear and left ear. Neuro: No deficits noted. Level of Consciousness is awake, alert, obeys commands, Oriented to person, place, time, situation, Appropriate for age Speech is slurred, Facial symmetry appears normal. Cardiovascular: No deficits noted. Respiratory: No deficits noted. Airway is patent Respiratory effort is even, unlabored, Breath sounds are clear. Respiratory: Reports cough that is Respiratory pattern is regular, symmetrical. GI: No deficits noted. No signs and/or symptoms were reported involving the gastrointestinal system. : No deficits noted. No signs and/or symptoms were reported regarding the genitourinary system. EENT: Tympanic membrane reddened on left ear and right ear Throat is clear is pink. Derm: No deficits noted. No signs and/or symptoms reported regarding the dermatologic system. Vital Signs: 08:36 BP 124 / 98; Pulse 79; Resp 17; Temp 97.8(O); Pulse Ox 98% on R/A; Weight 149.69 kg; ss Height 5 ft. 5 in. (165.10 cm); Pain 0/10; 09:30 BP 130 / 97; Pulse 85; Resp 18; Pulse Ox 98% on R/A; db 08:36 Body Mass Index 54.91 (149.69 kg, 165.10 cm) ED Course: 08:29 Patient arrived in ED. am2 08:29 Jose Goodwin is PHCP. jl9 08:29 Rajan Samuel MD is Attending Physician. jl9 08:36 Arm band placed on right wrist. ss 09:00 Triage completed. ss 09:18 Nicole Carrillo, VITA is Primary Nurse. db 09:25 Patient has correct armband on for positive identification. Bed in low position. Call db light in reach. Side rails up X 1. 09:25 No provider procedures requiring assistance completed. Patient did not have IV access db during this emergency room visit. intact, bleeding controlled, No redness/swelling at site. Pressure dressing applied. Administered Medications: No medications were administered Medication: :25 VIS not applicable for this client. db Outcome: :21 Discharge ordered by MD. bell 09:30 Discharged to home ambulatory, with family. db 09:30 Condition: stable 09:30 Discharge instructions given to patient, Instructed on discharge instructions, Demonstrated understanding of instructions, Prescriptions given X 3. 09:42 Patient left the ED. db Signatures: Guerline Ford, RN RN Jill Arellano John jl9 Nicole Carrillo, RN RN db
--- NOTE | 2022-04-04 09:22 | EDPHYS ---
Physician Documentation [facility] Name: Rachael Knox Age: 37 yrs Sex: Female : 1985 Arrival Date: 04/04/2022 Time: 08:29 Bed 19 Private MD: ED Physician Rajan Samuel HPI: 04/04 08:58 This 37 yrs old Female presents to ER via Unassigned with complaints of Cough, jl9 Nasal Congestion, Sore Throat, Ear Pain. 08:58 The patient or guardian reports cough, described as mild. Onset: The symptoms/episode jl9 began/occurred yesterday. Severity of symptoms: At their worst the symptoms were a " 2" out of "10". Modifying factors: The symptoms are alleviated by nothing, the symptoms are aggravated by nothing. Associated signs and symptoms: Pertinent positives: earache, sore throat. 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 - Social history:: Smoking status: Patient denies any tobacco usage or history of. ROS: 08:59 Constitutional: Negative for fever, chills, and weight loss. jl9 08:59 Eyes: Negative for injury, pain, redness, and discharge. 08:59 Neck: Negative for injury, pain, and swelling, Cardiovascular: Negative for chest pain, palpitations, and edema. 08:59 Abdomen/GI: Negative for abdominal pain, nausea, vomiting, diarrhea, and constipation, Back: Negative for injury and pain, : Negative for injury, bleeding, discharge, and swelling, MS/Extremity: Negative for injury and deformity, Skin: Negative for injury, rash, and discoloration, Neuro: Negative for headache, weakness, numbness, tingling, and seizure, Psych: Negative for depression, anxiety, suicide ideation, homicidal ideation, and hallucinations, Allergy/Immunology: Negative for hives, rash, and allergies, Endocrine: Negative for neck swelling, polydipsia, polyuria, polyphagia, and marked weight changes, Hematologic/Lymphatic: Negative for swollen nodes, abnormal bleeding, and unusual bruising. 08:59 ENT: Positive for ear pain, sinus congestion, sore throat. 08:59 Respiratory: Positive for cough. Exam: 08:59 Constitutional: This is a well developed, well nourished patient who is awake, alert, jl9 and in no acute distress. Head/Face: Normocephalic, atraumatic. Eyes: Pupils equal round and reactive to light, extra-ocular motions intact. Lids and lashes normal. Conjunctiva and sclera are non-icteric and not injected. Cornea within normal limits. Periorbital areas with no swelling, redness, or edema. 08:59 Neck: Trachea midline, no thyromegaly or masses palpated, and no cervical lymphadenopathy. Supple, full range of motion without nuchal rigidity, or vertebral point tenderness. No Meningismus. Chest/axilla: Normal chest wall appearance and motion. Nontender with no deformity. No lesions are appreciated. Cardiovascular: Regular rate and rhythm with a normal S1 and S2. No gallops, murmurs, or rubs. Normal PMI, no JVD. No pulse deficits. Respiratory: Lungs have equal breath sounds bilaterally, clear to auscultation and percussion. No rales, rhonchi or wheezes noted. No increased work of breathing, no retractions or nasal flaring. Abdomen/GI: Soft, non-tender, with normal bowel sounds. No distension or tympany. No guarding or rebound. No evidence of tenderness throughout. Back: No spinal tenderness. No costovertebral tenderness. Full range of motion. Skin: Warm, dry with normal turgor. Normal color with no rashes, no lesions, and no evidence of cellulitis. MS/ Extremity: Pulses equal, no cyanosis. Neurovascular intact. Full, normal range of motion. Neuro: Awake and alert, GCS 15, oriented to person, place, time, and situation. Cranial nerves II-XII grossly intact. Motor strength 5/5 in all extremities. Sensory grossly intact. Cerebellar exam normal. Normal gait. Psych: Awake, alert, with orientation to person, place and time. Behavior, mood, and affect are within normal limits. 08:59 ENT: External ear(s): are unremarkable, Ear canal(s): are normal, TM's: erythema, bilaterally, Nose: nasal drainage, that is minimal, Mouth: is normal, Posterior pharynx: is normal. Vital Signs: 08:36 BP 124 / 98; Pulse 79; Resp 17; Temp 97.8(O); Pulse Ox 98% on R/A; Weight 149.69 kg; ss Height 5 ft. 5 in. (165.10 cm); Pain 0/10; 09:30 BP 130 / 97; Pulse 85; Resp 18; Pulse Ox 98% on R/A; db 08:36 Body Mass Index 54.91 (149.69 kg, 165.10 cm) ss MDM: 08:30 Patient medically screened. jl9 09:00 Differential Diagnosis: Bronchitis Influenza Upper Respiratory Infection Sinusitis. jl9 Data reviewed: vital signs, nurses notes. 09:20 Counseling: I had a detailed discussion with the patient and/or guardian regarding: the jl9 historical points, exam findings, and any diagnostic results supporting the discharge/admit diagnosis, lab results, the need for outpatient follow up, to return to the emergency department if symptoms worsen or persist or if there are any questions or concerns that arise at home. 04/04 08:31 Order name: Flu; Complete Time: 09:20 jl9 04/04 08:31 Order name: Strep; Complete Time: 09:20 jl9 04/04 09:19 Order name: Throat Culture EDMS Administered Medications: No medications were administered Disposition Summary: 04/04/22 09:21 Discharge Ordered Location: Home jl9 Condition: Stable jl9 Diagnosis - Acute serous otitis media, recurrent, bilateral jl9 Followup: jl9 - With: Private Physician - When: 1 - 2 days - Reason: Recheck today's complaints, Continuance of care, Re-evaluation by your physician Discharge Instructions: - Discharge Summary Sheet jl9 - Otitis Media, Adult, [id number] jl9 Forms: - Medication Reconciliation Form jl9 - Thank You Letter jl9 - Antibiotic Education jl9 - Prescription Opioid Use jl9 Prescriptions: - albuterol sulfate 90 mcg/actuation Inhalation HFA aerosol inhaler - inhale 2 puff by INHALATION route every 4-6 hours; 18 gram; Refills: 0, Product jl9 Selection Permitted - azithromycin 250 mg Oral tablet - take 2 tablet by ORAL route once daily for 1 day then 1 tablet (250 mg) by oral jl9 route once daily for 4 days; 6 tablet; Refills: 0, Product Selection Permitted - Medrol (Ed) 4 mg Oral Tablets, Dose Pack - take 1 tablet by ORAL route as directed - follow package instructions; 1 jl9 packet; Refills: 0, Product Selection Permitted Signatures: Dispatcher [employer] Guerline Guy RN RN Jose Alvarado jl9
[2022-04-04 09:53] VITALS: TEMP 97.8; O2SAT 98
[2022-04-04 10:00] VITALS: BP 130/97
== END 2022-04-04 09:42 | disposition home or self-care (01) ==
LOC: ER 08:24
DX: H65.06 Acute serous otitis media, recurrent, bilateral (principal); I10 Essential (primary) hypertension; Z88.0 Allergy status to penicillin; Z88.1 Allergy status to other antibiotic agents; Z88.2 Allergy status to sulfonamides
CPT/HCPCS: 87070; 87081; 87804; 99282

== ENCOUNTER 2022-04-19 17:12 | Emergency (ER) | payer SELFPAY ==
--- OUTSIDE RECORDS SUMMARY | 2022-04-19 17:15 | XMS REPORT | Continuity of Care Document ---
:1985 Author Organization [facility] t Address [address] [place] [address] Dr. Marshall [address] [place] [id number] Care Team Providers Name Role Phone Unavailable Unavailable Unavailable Problems This patient has no known problems. Allergies, Adverse Reactions, Alerts This patient has no known allergies or adverse reactions. Medications This patient has no known medications. Procedures This patient has no known procedures. Results This patient has no known results.
--- NOTE | 2022-04-19 17:39 | EDPHYS ---
Physician Documentation [facility] Name: Rachael Knox Age: 37 yrs Sex: Female : 1985 Arrival Date: 04/19/2022 Time: 17:21 Bed IW2 Private MD: ED Physician Kei Dover HPI: 04/19 17:40 This 37 yrs old Female presents to ER via Unassigned with complaints of Ear ms3 Pain, Cough, Congestion. 17:40 The patient presents with pain, a " 10" out of "10". The complaints affect the right ms3 ear. Onset: The symptoms/episode began/occurred 2 week(s) ago. Modifying factors: The symptoms are alleviated by nothing, the symptoms are aggravated by nothing. Associated signs and symptoms: Pertinent positives: cough, rhinorrhea, Pertinent negatives: fever. Severity of symptoms: At their worst the symptoms were moderate in the emergency department the symptoms are unchanged. 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 Last tetanus immunization: up to date. - Social history:: Smoking status: Patient denies any tobacco usage or history of. ROS: 17:40 Constitutional: Negative for fever, and chills. Neck: Negative for injury, pain, and ms3 swelling, Cardiovascular: Negative for chest pain, and palpitations. 17:40 Skin: Negative for injury, rash, and discoloration, Neuro: Negative for headache, weakness, numbness, tingling. 17:40 ENT: Positive for ear pain. 17:40 Respiratory: Positive for cough. 17:40 All other systems are negative. Exam: 17:40 Constitutional: This is a well developed, well nourished patient who is awake, alert, ms3 and in no acute distress. Head/Face: Normocephalic, atraumatic. 17:40 Respiratory: Lungs have equal breath sounds bilaterally, clear to auscultation and percussion. No rales, rhonchi or wheezes noted. No increased work of breathing, no retractions or nasal flaring. Abdomen/GI: Soft, non-tender, with normal bowel sounds. No distension or tympany. No guarding or rebound. No evidence of tenderness throughout. Skin: Warm, dry with normal turgor. Normal color with no rashes, no lesions, and no evidence of cellulitis. 17:40 ENT: Ear canal(s): cerumen impaction, that is severe, occluding the left ear canal, Moderate cerumen impaction right ear. Vital Signs: 17:39 BP 135 / 105; Pulse 79; Resp 20; Temp 98.7; Pulse Ox 99% ; Weight 149.69 kg; Height 5 kb3 ft. 5 in. (165.10 cm); Pain 10/10; 17:39 Body Mass Index 54.91 (149.69 kg, 165.10 cm) kb3 MDM: 17:37 Patient medically screened. ms3 17:40 Data reviewed: vital signs, nurses notes, and as a result, I will discharge patient. ms3 Counseling: I had a detailed discussion with the patient and/or guardian regarding: the historical points, exam findings, and any diagnostic results supporting the discharge/admit diagnosis, the need for outpatient follow up, to return to the emergency department if symptoms worsen or persist or if there are any questions or concerns that arise at home. ED course: Discussed PE findings with patient. Patient to follow up with PMD. Administered Medications: No medications were administered Disposition Summary: 04/19/22 17:38 Discharge Ordered Location: Home ms3 Condition: Stable ms3 Diagnosis - Otalgia, right ear ms3 - Nasal congestion ms3 - Cough ms3 Followup: ms3 - With: Cedric Bowling DO - When: 2 - 3 days - Reason: Recheck today's complaints Discharge Instructions: - Discharge Summary Sheet ms3 - Upper Respiratory Infection, Adult ms3 Forms: - Medication Reconciliation Form ms3 - Thank You Letter ms3 - Antibiotic Education ms3 - Prescription Opioid Use ms3 Prescriptions: - Flonase Allergy Relief 50 mcg/actuation Nasal spray,suspension - spray 2 spray by INTRANASAL route once daily as needed; 1 bottle; Refills: 0, ms3 Product Selection Permitted - Loratadine 10 mg Oral Tablet - take 1 tablet by ORAL route once daily; 14 tablet; Refills: 0, Product ms3 Selection Permitted Signatures: Kei Dover DO DO ms3 Rita Zhou, RN RN kb3 Corrections: (The following items were deleted from the chart) 17:41 17:40 Allergies: Azithromycin; kb3 kb3
--- NOTE | 2022-04-19 17:55 | ER ---
Nurse's Notes [facility] Name: Rachael Knox Age: 37 yrs Sex: Female : 1985 Arrival Date: 04/19/2022 Time: 17:21 Bed IW2 Private MD: Diagnosis: Otalgia, right ear;Nasal congestion;Cough Presentation: 04/19 17:39 Chief complaint: Patient states: Pt reports continued cough, congestion, bilateral ear kb3 pain x2 weeks. Coronavirus screen: Vaccine status: Patient reports being unvaccinated. Client denies travel out of the [place] in the last 14 days. Ebola Screen: Patient negative for fever greater than or equal to 101.5 degrees Fahrenheit, and additional compatible Ebola Virus Disease symptoms Patient denies exposure to infectious person. Patient denies travel to an Ebola-affected area in the 21 days before illness onset. Initial Sepsis Screen: Does the patient meet any 2 criteria? No. Patient's initial sepsis screen is negative. Does the patient have a suspected source of infection? No. Patient's initial sepsis screen is negative. Risk Assessment: Do you want to hurt yourself or someone else? Patient reports no desire to harm self or others. Onset of symptoms was April 03, 2022. 17:39 Method Of Arrival: Ambulatory kb3 17:39 Acuity: DARSHAN 4 kb3 Triage Assessment: 17:40 General: Appears in no apparent distress. Behavior is calm, cooperative. Pain: kb3 Complains of pain in right ear and left ear Pain does not radiate. Pain currently is 10 out of 10 on a pain scale. Quality of pain is described as pressure. EENT: Tympanic membrane clear on left ear and right ear Large amount of wax in bilateral ear canals. 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 Last tetanus immunization: up to date. - Social history:: Smoking status: Patient denies any tobacco usage or history of. Screenin:43 Abuse screen: Denies threats or abuse. Denies injuries from another. Nutritional kb3 screening: No deficits noted. Tuberculosis screening: No symptoms or risk factors identified. Fall Risk None identified. Assessment: 17:43 General: See triage note. kb3 Vital Signs: 17:39 BP 135 / 105; Pulse 79; Resp 20; Temp 98.7; Pulse Ox 99% ; Weight 149.69 kg; Height 5 kb3 ft. 5 in. (165.10 cm); Pain 10/10; 17:39 Body Mass Index 54.91 (149.69 kg, 165.10 cm) kb3 ED Course: 17:21 Patient arrived in ED. jj6 17:27 Kei Dover DO is Attending Physician. ms3 17:37 Cedric Bowling DO is Referral Physician. ms3 17:40 Triage completed. kb3 17:40 Arm band placed on right wrist. kb3 17:43 Rita Zhou, RN is Primary Nurse. kb3 17:43 Patient has correct armband on for positive identification. kb3 17:43 No provider procedures requiring assistance completed. Patient did not have IV access kb3 during this emergency room visit. Administered Medications: No medications were administered Medication: 17:43 VIS not applicable for this client. kb3 Outcome: 17:38 Discharge ordered by MD. ms3 17:54 Discharged to home ambulatory. kb3 17:54 Condition: stable 17:54 Discharge instructions given to patient, Instructed on discharge instructions, follow up and referral plans. medication usage, Demonstrated understanding of instructions, follow-up care, medications, Prescriptions given X 2. 17:55 Patient left the ED. kb3 Signatures: Kei Dover DO DO ms3 Lalita Lyon jj6 Rita Zhou, RN RN kb3 Corrections: (The following items were deleted from the chart) 17:41 17:40 Allergies: Azithromycin; kb3 kb3
[2022-04-19 17:58] VITALS: BP 135/105; TEMP 98.7; O2SAT 99
== END 2022-04-19 17:55 | disposition home or self-care (01) ==
LOC: ER 17:12
DX: R05.9 Cough, unspecified (principal); R09.81 Nasal congestion; H92.01 Otalgia, right ear; I10 Essential (primary) hypertension; Z88.0 Allergy status to penicillin; Z88.1 Allergy status to other antibiotic agents; Z88.2 Allergy status to sulfonamides; Z88.3 Allergy status to other anti-infective agents
CPT/HCPCS: 99282

== ENCOUNTER 2022-05-04 18:26 | Emergency (ER) | payer SELFPAY ==
--- OUTSIDE RECORDS SUMMARY | 2022-05-04 18:29 | XMS REPORT | Continuity of Care Document ---
:1985 Author Organization [facility] t Address [address] [place] [address] [address] [place] [address] Care Team Providers Name Role Phone Unavailable Unavailable Unavailable Problems This patient has no known problems. Allergies, Adverse Reactions, Alerts This patient has no known allergies or adverse reactions. Medications This patient has no known medications. Procedures This patient has no known procedures. Results This patient has no known results.
[2022-05-04] MEDS ORDERED: MORPHINE 4 MG/ML SYR ONE ×2 (19:20→21:39)
[2022-05-04 19:58] LABS: Urine Blood Negative (Negative); Urine Glucose Negative (Negative); Urine Protein Negative (Negative); Urine Specific Gravity 1.025 (1.005-1.030)
[2022-05-04 20:12] LABS: Urine Bacteria <20 /HPF (<20); Urine Mucus Slight /HPF (None Seen); Urine RBC <5 /HPF (None Seen)
[2022-05-04 20:18] LABS: Urine Specific Gravity/Preg 1.025 (1.005-1.030)
[2022-05-04 20:27] LABS: Absolute Lymphocytes (CBC) 3.5 K/uL (0.7-4.9); Hematocrit 36.5 % (36.0-45.0); Lymphocytes % 36.6 % (15.3-44.8); MPV 8.3 fL (7.6-11.3); RBC Red Blood Cell Count 3.92 M/uL (3.86-4.86)
[2022-05-04] MEDS ORDERED: ONDANSETRON 4 MG/2 ML VIAL ONE (20:46)
[2022-05-04 20:48] LABS: Albumin 3.9 g/dL (3.4-5.0); Bilirubin Total 0.3 mg/dL (0.2-1.0); Potassium 3.7 mmol/L (3.5-5.1); Protein, Total 7.4 g/dL (6.4-8.2)
--- NOTE | 2022-05-04 20:54 | RAD REPORT ---
EXAM DESCRIPTION: CTAbdomen Pelvis W Contrast - 05/04/2022 8:35 pm CLINICAL HISTORY: abdominal pain COMPARISON: 10/06/2021, 10/04/2021 TECHNIQUE: CT of the abdomen and pelvis was performed with IV contrast. All CT scans are performed using dose optimization technique as appropriate and may include automated exposure control or mA/KV adjustment according to patient size. FINDINGS: Lower chest: No acute abnormality. Liver: No acute abnormality or suspicious lesions. Biliary: No biliary ductal dilatation. Stomach: No significant focal abnormality. Duodenum: No significant focal abnormality. Pancreas: No significant abnormality. Spleen: No significant abnormality. Adrenal: No suspicious lesions. Kidney/ureter: No hydronephrosis. No renal calculi. Retroperitoneum: No retroperitoneal adenopathy. Vascular: No aneurysm. Bowel: Moderate stool in the colon. There is also formed stool in the terminal ileum which suggests a transit.. No appendix identified which is likely surgically absent. Peritoneum: No ascites or free air. Fat containing umbilical hernia has enlarged from prior. Small ve ntral hernias . . Bladder: Decompressed, not well evaluated. Reproductive: Adnexal cysts which are likely physiologic. Bones: No acute fracture. Other: n/a IMPRESSION: No definite acute intra-abdominal abnormality. Moderate stool including formed stool in the terminal ileum that suggests slow transit. Enlarging fat containing umbilical hernia which could be a source of pain.
--- NOTE | 2022-05-04 21:34 | EDPHYS ---
Physician Documentation [facility] Name: Rachael Knox Age: 37 yrs Sex: Female : 1985 Arrival Date: 05/04/2022 Time: 18:28 Bed 17 Private MD: ED Physician Junito Sutton HPI: 05/04 18:50 This 37 yrs old Female presents to ER via Ambulatory with complaints of ms3 Abdominal Pain, Abdominal Swelling. 18:50 The patient presents with abdominal pain in the periumbilical area. Onset: The ms3 symptoms/episode began/occurred acutely, 2 day(s) ago. The symptoms do not radiate. Associated signs and symptoms: none. The symptoms are described as achy. Modifying factors: The symptoms are alleviated by nothing, the symptoms are aggravated by nothing. Severity of pain: At its worst the pain was severe in the emergency department the pain is unchanged is a . 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 Last tetanus immunization: unknown. - Social history:: Smoking status: Patient denies any tobacco usage or history of. ROS: 18:50 Constitutional: Negative for fever, and chills. Neck: Negative for injury, pain, and ms3 swelling, Cardiovascular: Negative for chest pain, and palpitations. Respiratory: Negative for shortness of breath, cough, wheezing, and pleuritic chest pain. 18:50 MS/Extremity: Negative for injury and deformity, Skin: Negative for injury, rash, and discoloration. 18:50 Abdomen/GI: Positive for abdominal pain. 18:50 All other systems are negative. Exam: 18:50 Constitutional: This is a well developed, well nourished patient who is awake, alert, ms3 and in no acute distress. Head/Face: Normocephalic, atraumatic. Neck: Trachea midline, no cervical lymphadenopathy. Supple, full range of motion without nuchal rigidity, or vertebral point tenderness. No Meningismus. Chest/axilla: Normal chest wall appearance and motion. Nontender with no deformity. Cardiovascular: Regular rate and rhythm with a normal S1 and S2. No gallops, murmurs, or rubs. Normal PMI, no JVD. No pulse deficits. Respiratory: Lungs have equal breath sounds bilaterally, clear to auscultation and percussion. No rales, rhonchi or wheezes noted. No increased work of breathing, no retractions or nasal flaring. 18:50 Skin: Warm, dry with normal turgor. Normal color with no rashes, no lesions, and no evidence of cellulitis. Neuro: Awake and alert, GCS 15, oriented to person, place, time, and situation. Cranial nerves II-XII grossly intact. Motor strength 5/5 in all extremities. Sensory grossly intact. Cerebellar exam normal. Normal gait. 18:50 Abdomen/GI: Inspection: abdomen appears normal, Bowel sounds: normal, Palpation: moderate abdominal tenderness, in all quadrants. Vital Signs: 18:44 BP 149 / 92; Pulse 84; Resp 20; Temp 96.9; Pulse Ox 97% ; Weight 151.5 kg; Height 5 ft. kb3 5 in. (165.10 cm); Pain 10/10; 19:15 BP 131 / 85; Pulse 85; Resp 18; Pulse Ox 96% on R/A; eh3 20:15 BP 126 / 84; Pulse 75; Resp 18; Pulse Ox 97% on R/A; eh3 21:15 BP 107 / 62; Pulse 74; Resp 18; Pulse Ox 95% on R/A; eh3 22:15 BP 129 / 107; Pulse 86; Resp 18; Pulse Ox 97% on R/A; eh3 18:44 Body Mass Index 55.58 (151.50 kg, 165.10 cm) kb3 MDM: 18:45 Patient medically screened. ms3 21:31 Differential diagnosis: bowel obstruction, gastritis, non-specific abd pain, Peptic rn Ulcer Disease, hernia, constipation. Data reviewed: vital signs, nurses notes, lab test result(s), radiologic studies, CT scan, and as a result, I will discharge patient. Counseling: I had a detailed discussion with the patient and/or guardian regarding: the historical points, exam findings, and any diagnostic results supporting the discharge/admit diagnosis, lab results, radiology results, the need for outpatient follow up, to return to the emergency department if symptoms worsen or persist or if there are any questions or concerns that arise at home. Response to treatment: the patient's symptoms have mildly improved after treatment, and as a result, I will discharge patient. Special discussion: Based on the patient's Hx, exam, and Dx evaluation, there is no indication for emergent surgery or inpatient Tx. It is understood by the patient/guardian that if the Sx's persist or worsen they need to return immediately for re-evaluation. I discussed with the patient/guardian in detail that at this point there is no indication for admission to the hospital. It is understood, however, that if the symptoms persist or worsen the patient needs to return immediately for re-evaluation. ED course: CT shows constipation and enlarging ventral hernia with only fat. Able to reduce hernia when I went back to evaluate patient, no peritoneal signs. Will dc home with instructions for bowel regimen for constipation and told to f/u with surgery for hernia. Return precautions given and understood. . 21:34 ED course: Pt states unable to get in with pcp or clinic for levothyroxine medication, rn knows dose, will refill. . 12 18:49 Order name: CBC with Diff; Complete Time: 20:44 ms3 05/04 18:49 Order name: CMP; Complete Time: 20:58 ms3 05/04 18:49 Order name: Lipase; Complete Time: 20:58 ms3 05/04 18:49 Order name: Urine Microscopic Only; Complete Time: 20:44 ms3 05/04 19:59 Order name: Urine Dipstick-Ancillary; Complete Time: 20:44 EDMS 05/04 20:08 Order name: Urine --Ancillary (enter results); Complete Time: 20:44 mw2 05/04 18:49 Order name: CT Abd/Pelvis - IV Contrast Only; Complete Time: 20:58 ms3 05/04 18:49 Order name: IV Saline Lock; Complete Time: 21:01 ms3 05/04 18:49 Order name: Labs collected and sent; Complete Time: 21:01 ms3 05/04 18:49 Order name: Urine Dipstick-Ancillary (obtain specimen); Complete Time: 19:59 ms3 05/04 18:49 Order name: Urine Test (obtain specimen); Complete Time: 19:59 ms3 Administered Medications: 20:05 Drug: morphine 4 mg Route: IVP; Infused Over: 4 mins; Site: left antecubital; 3 21:01 Follow up: Response: Pain is decreased; Nausea is increased 3 20:52 Drug: Zofran (Ondansetron) 4 mg Route: IVP; Site: left antecubital; 3 21:31 Follow up: Response: Nausea is decreased eh3 21:30 Drug: NS 0.9% 1000 ml Route: IV; Rate: 1000 ml; Site: left antecubital; 3 22:44 Follow up: IV Status: Completed infusion; IV Intake: 1000ml 3 21:30 Drug: morphine 4 mg Route: IVP; Infused Over: 4 mins; Site: left antecubital; 3 22:00 Follow up: Response: Pain is decreased 3 Disposition Summary: 05/04/22 21:33 Discharge Ordered Location: Home rn Problem: an ongoing problem rn Symptoms: have improved rn Condition: Stable rn Diagnosis - Ventral hernia without obstruction or gangrene rn - Constipation rn - Abdominal pain, unspecified rn Followup: rn - With: Maco Lombardi MD - When: As needed - Reason: Recheck today's complaints, Re-evaluation by your physician Discharge Instructions: - Discharge Summary Sheet rn - Abdominal Pain, Adult rn - Constipation, Adult rn - Hernia, Adult rn Forms: - Medication Reconciliation Form rn - Thank You Letter rn - Antibiotic inpatient services rn - Prescription Opioid Use rn Prescriptions: - Levothyroxine 150 mcg Oral Tablet - take 1 tablet by ORAL route once daily take 30 minutes before breakfast; 60 rn tablet; Refills: 0, Product Selection Permitted - Tramadol 50 mg Oral Tablet - take 1 tablet by ORAL route every 8 hours as needed; 12 tablet; Refills: 0, rn Product Selection Permitted Signatures: Dispatcher [employer] EDJunito Mcnally MD MD rn Sims, Marcus, DO DO ms3 Clary Liriano RN RN 3 Rita Zhou RN RN kb3 Corrections: (The following items were deleted from the chart) 18:46 18:45 Allergies: Bactrim; kb3 kb3 18:46 18:45 Home Meds: Pro-air; kb3 kb3
--- NOTE | 2022-05-04 21:34 | ER ---
Nurse's Notes [facility] Name: Rachael Knox Age: 37 yrs Sex: Female : 1985 Arrival Date: 05/04/2022 Time: 18:28 Bed 17 Private MD: Diagnosis: Ventral hernia without obstruction or gangrene;Constipation;Abdominal pain, unspecified Presentation: 05/04 18:44 Chief complaint: Patient states: Epigastric and mid-abdominal pain x3 days with kb3 associated nausea. Coronavirus screen: Vaccine status: Patient reports being unvaccinated. Client denies travel out of the [place] in the last 14 days. Ebola Screen: Patient negative for fever greater than or equal to 101.5 degrees Fahrenheit, and additional compatible Ebola Virus Disease symptoms Patient denies exposure to infectious person. Patient denies travel to an Ebola-affected area in the 21 days before illness onset. No symptoms or risks identified at this time. Initial Sepsis Screen: Does the patient meet any 2 criteria? No. Patient's initial sepsis screen is negative. Does the patient have a suspected source of infection? No. Patient's initial sepsis screen is negative. Risk Assessment: Do you want to hurt yourself or someone else? Patient reports no desire to harm self or others. Onset of symptoms was May 01, 2022. 18:44 Method Of Arrival: Ambulatory kb3 18:44 Acuity: DARSHAN 3 kb3 Triage Assessment: 18:45 General: Appears in no apparent distress. Behavior is calm, cooperative. Pain: kb3 Complains of pain in epigastric area, umbilical area and suprapubic area Pain does not radiate. Pain currently is 10 out of 10 on a pain scale. Quality of pain is described as crampy, sharp, Pain began 2-3 days ago. GI: Reports lower abdominal pain, upper abdominal pain, nausea. 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 Last tetanus immunization: unknown. - Social history:: Smoking status: Patient denies any tobacco usage or history of. Screenin:15 Abuse screen: Denies threats or abuse. Denies injuries from another. Nutritional eh3 screening: No deficits noted. Tuberculosis screening: No symptoms or risk factors identified. Fall Risk None identified. Assessment: 19:15 General: Appears in no apparent distress. uncomfortable, Behavior is calm, cooperative, eh3 appropriate for age. Pain: Complains of pain in suprapubic area and umbilical area and epigastric area. Neuro: Level of Consciousness is awake, alert, obeys commands, Oriented to person, place, time, situation. Cardiovascular: Capillary refill < 3 seconds Patient's skin is warm and dry. Respiratory: Airway is patent Respiratory effort is even, unlabored, Respiratory pattern is regular, symmetrical. GI: Abdomen is round non-distended, Bowel sounds present X 4 quads. Abd is soft and non tender X 4 quads. : No signs and/or symptoms were reported regarding the genitourinary system. EENT: No signs and/or symptoms were reported regarding the EENT system. Derm: No signs and/or symptoms reported regarding the dermatologic system. Musculoskeletal: No signs and/or symptoms reported regarding the musculoskeletal system. Circulation, motion, and sensation intact. Range of motion: intact in all extremities. 20:15 Reassessment: Patient appears in no apparent distress at this time. Patient and/or eh3 family updated on plan of care and expected duration. Pain level reassessed. Patient is alert, oriented x 3, equal unlabored respirations, skin warm/dry/pink. 21:15 Reassessment: Patient appears in no apparent distress at this time. Patient and/or eh3 family updated on plan of care and expected duration. Pain level reassessed. Patient is alert, oriented x 3, equal unlabored respirations, skin warm/dry/pink. 21:30 Reassessment: Dr. Sutton specified discharge after 1000mL NS bolus completed. 900mL eh3 remaining. 22:15 Reassessment: Patient appears in no apparent distress at this time. Patient and/or eh3 family updated on plan of care and expected duration. Pain level reassessed. Patient is alert, oriented x 3, equal unlabored respirations, skin warm/dry/pink. Vital Signs: 18:44 BP 149 / 92; Pulse 84; Resp 20; Temp 96.9; Pulse Ox 97% ; Weight 151.5 kg; Height 5 ft. kb3 5 in. (165.10 cm); Pain 10/10; 19:15 BP 131 / 85; Pulse 85; Resp 18; Pulse Ox 96% on R/A; eh3 20:15 BP 126 / 84; Pulse 75; Resp 18; Pulse Ox 97% on R/A; eh3 21:15 BP 107 / 62; Pulse 74; Resp 18; Pulse Ox 95% on R/A; eh3 22:15 BP 129 / 107; Pulse 86; Resp 18; Pulse Ox 97% on R/A; eh3 18:44 Body Mass Index 55.58 (151.50 kg, 165.10 cm) kb3 ED Course: 18:28 Patient arrived in ED. as 18:39 Kei Dover DO is Attending Physician. ms3 18:45 Triage completed. kb3 18:45 Arm band placed on right wrist. Patient placed in an exam room, on a stretcher. kb3 19:09 Clary Liriano, RN is Primary Nurse. eh3 19:10 Attending Physician role handed off by Kei Dover DO rn 19:10 Junito Sutton MD is Attending Physician. rn 19:15 Patient has correct armband on for positive identification. Bed in low position. Call eh3 light in reach. Side rails up X2. Pulse ox on. NIBP on. Door closed. Noise minimized. 19:57 Missed attempt(s): 20 gauge in right forearm. kl 20:05 Inserted saline lock: 20 gauge in left antecubital area, using aseptic technique. Blood eh3 collected. 20:37 CT Abd/Pelvis - IV Contrast Only In Process Unspecified. EDMS 21:33 Maco Lombardi MD is Referral Physician. rn 22:45 No provider procedures requiring assistance completed. IV discontinued, intact, eh3 bleeding controlled, No redness/swelling at site. Pressure dressing applied. Administered Medications: 20:05 Drug: morphine 4 mg Route: IVP; Infused Over: 4 mins; Site: left antecubital; eh3 21:01 Follow up: Response: Pain is decreased; Nausea is increased eh3 20:52 Drug: Zofran (Ondansetron) 4 mg Route: IVP; Site: left antecubital; eh3 21:31 Follow up: Response: Nausea is decreased eh3 21:30 Drug: NS 0.9% 1000 ml Route: IV; Rate: 1000 ml; Site: left antecubital; eh3 22:44 Follow up: IV Status: Completed infusion; IV Intake: 1000ml 3 21:30 Drug: morphine 4 mg Route: IVP; Infused Over: 4 mins; Site: left antecubital; eh3 22:00 Follow up: Response: Pain is decreased eh3 Medication: 22:45 VIS not applicable for this client. eh3 Intake: 22:44 IV: 1000ml; Total: 1000ml. 3 Outcome: 21:33 Discharge ordered by MD. rn 22:45 Discharged to home ambulatory. 3 22:45 Condition: stable 22:45 Discharge instructions given to patient, Instructed on discharge instructions, follow up and referral plans. medication usage, Demonstrated understanding of instructions, follow-up care, medications, Prescriptions given X 2. 22:45 Patient left the ED. 3 Signatures: Dispatcher [employer] EDMS Yumiko Campbell RN RN kl Martinez, Amelia as Nieto, Roman, MD MD rn Sims, Marcus, DO DO ms3 Clary Liriano RN RN eh3 Rita Zhou RN RN kb3 Corrections: (The following items were deleted from the chart) 18:46 18:45 Allergies: Bactrim; kb3 kb3 18:46 18:45 Home Meds: Pro-air; kb3 kb3 22:39 21:30 Reassessment: Dr. Sutton specified discharge after 1000mL NS bolus completed. eh3 900mL remaining 3 22:39 22:30 Reassessment: Patient appears in no apparent distress at this time. Patient eh3 and/or family updated on plan of care and expected duration. Pain level reassessed. Patient is alert, oriented x 3, equal unlabored respirations, skin warm/dry/pink. eh3
[2022-05-04] MEDS ORDERED: NA CHLORIDE 0.9% 1,000 ML ONE (21:39)
[2022-05-04 22:49] VITALS: TEMP 96.9
[2022-05-04 22:54] VITALS: BP 129/107; O2SAT 97
== END 2022-05-04 22:45 | disposition home or self-care (01) ==
LOC: ER 18:26
DX: K43.9 Ventral hernia without obstruction or gangrene (principal); K59.00 Constipation, unspecified; I10 Essential (primary) hypertension; Z88.0 Allergy status to penicillin; Z88.2 Allergy status to sulfonamides; Z88.3 Allergy status to other anti-infective agents
CPT/HCPCS: 36415; 74177; 80053; 81003; 81015; 81025; 82565; 83690; 85025; 96361; 96374; 96375; 99284; J2405; J7030; Q9967

== ENCOUNTER 2022-06-20 08:12 | Emergency (ER) | payer SELFPAY ==
--- OUTSIDE RECORDS SUMMARY | 2022-06-20 08:15 | XMS REPORT | Continuity of Care Document ---
:1985 Author Organization [facility] t Address [address] [place] [address] [address] [place] [address] Care Team Providers Name Role Phone Unavailable Unavailable Unavailable Problems This patient has no known problems. Allergies, Adverse Reactions, Alerts This patient has no known allergies or adverse reactions. Medications This patient has no known medications. Procedures This patient has no known procedures. Results This patient has no known results.
[2022-06-20] MEDS ORDERED: KETOROLAC 30 MG/ML INJ ONE (08:39)
[2022-06-20] MEDS ORDERED: NA CHLORIDE 0.9% 1,000 ML ONE (08:39)
[2022-06-20 08:50] LABS: Absolute Lymphocytes (CBC) 2.9 K/uL (0.7-4.9); Hematocrit 38.6 % (36.0-45.0); Lymphocytes % 35.7 % (15.3-44.8); MCV 93.6 fL (80-100); RBC Red Blood Cell Count 4.12 M/uL (3.86-4.86)
[2022-06-20 09:12] LABS: Albumin 4.1 g/dL (3.4-5.0); Bilirubin Total 0.3 mg/dL (0.2-1.0); Potassium 3.9 mmol/L (3.5-5.1); Protein, Total 7.8 g/dL (6.4-8.2)
[2022-06-20 09:15] LABS: Thyroid Stimulating Hormone 69.2 uIU/mL (0.358-3.740)
--- NOTE | 2022-06-20 09:21 | RAD REPORT ---
EXAM DESCRIPTION: RAD - Chest Single View - 06/20/2022 8:45 am CLINICAL HISTORY: CHEST PAIN, shortness of breath x2 days COMPARISON: Portable 02/22/2022 TECHNIQUE: AP portable chest image was obtained 06/20/2022 8:45 am . FINDINGS: Lung volumes are low which accentuates the lung parenchymal pattern. No peripheral mass or consolidation. Heart size is normal for portable imaging with shallow inspiration. Central vasculatu re is accentuated slightly by the low lung volumes and body habitus affects. No significant failure o r volume overload. No measurable pleural effusion and no pneumothorax. No acute bony abnormality seen. No acute aortic f indings suspected. IMPRESSION: Limited shallow inspiration film with no acute cardiopulmonary finding. Chest exam does not suggest any significant degree of failure or volume overload.
--- NOTE | 2022-06-20 10:28 | ER ---
Nurse's Notes [facility] Name: Rachael Knox Age: 37 yrs Sex: Female : 1985 Arrival Date: 06/20/2022 Time: 08:14 Bed 6 Private MD: Diagnosis: Chest pain, unspecified;Hypothyroidism, unspecified Presentation: 06/20 08:23 Chief complaint: Sharp left sided chest pain and SOB x 2 days. Denies cough/fever. hb Coronavirus screen: At this time, the client does not indicate any symptoms associated with coronavirus-19. Ebola Screen: No symptoms or risks identified at this time. Initial Sepsis Screen: Does the patient meet any 2 criteria? No. Patient's initial sepsis screen is negative. Does the patient have a suspected source of infection? No. Patient's initial sepsis screen is negative. Risk Assessment: Do you want to hurt yourself or someone else? Patient reports no desire to harm self or others. Onset of symptoms was June 18, 2022. 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 - Family history:: not pertinent. - Social history:: Smoking status: Patient reports the use of cigarette tobacco products, denies chronic smoking, but will smoke occasionally. Screenin:30 [facility] ED Fall Risk Assessment (Adult) History of falling in the last 3 months, kc6 including since admission No falls in past 3 months (0 pts) Confusion or Disorientation No (0 pts) Intoxicated or Sedated No (0 pts) Impaired Gait No (0 pts) Mobility Assist Device Used No (0 pt) Altered Elimination No (0 pt) Score/Fall Risk Level 0 - 2 = Low Risk Oriented to surroundings, Maintained a safe environment, Educated pt \T\ family on fall prevention, incl call for assistance when getting out of bed, Assessed \T\ reinforced patient's understanding of fall precautions, Hourly rounding (assess needs \T\ fall precautionary measures) done. Abuse screen: Denies threats or abuse. Denies injuries from another. Nutritional screening: No deficits noted. Tuberculosis screening: No symptoms or risk factors identified. Assessment: 08:30 General: Appears in no apparent distress. comfortable, Behavior is cooperative, kc6 appropriate for age, anxious. Pain: Complains of pain in chest Pain does not radiate. Pain currently is 7 out of 10 on a pain scale. Quality of pain is described as sharp, Pain began 2-3 days ago. Is continuous, Alleviated by nothing. Aggravated by increased activity, Also complains of no other associated symptoms. Neuro: Gan Agitation-Sedation Scale (RASS): 0 - Alert and Calm Level of Consciousness is awake, alert, obeys commands, Oriented to person, place, time, situation, Appropriate for age. Cardiovascular: Heart tones S1 S2 present Capillary refill < 3 seconds Rhythm is sinus rhythm. Respiratory: Reports shortness of breath Airway is patent Trachea midline Respiratory effort is even, unlabored, Respiratory pattern is regular, symmetrical, Breath sounds with wheezes bilaterally. GI: No signs and/or symptoms were reported involving the gastrointestinal system. : No signs and/or symptoms were reported regarding the genitourinary system. EENT: No signs and/or symptoms were reported regarding the EENT system. Derm: No signs and/or symptoms reported regarding the dermatologic system. Skin is intact, Skin is pink, warm \T\ dry. Musculoskeletal: No signs and/or symptoms reported regarding the musculoskeletal system. Circulation, motion, and sensation intact. Capillary refill < 3 seconds, Range of motion: intact in all extremities. 09:30 Reassessment: Patient appears in no apparent distress at this time. No changes from kc6 previously documented assessment. Patient and/or family updated on plan of care and expected duration. Pain level reassessed. Patient is alert, oriented x 3, equal unlabored respirations, skin warm/dry/pink. 10:30 Reassessment: Patient appears in no apparent distress at this time. No changes from kc6 previously documented assessment. Patient and/or family updated on plan of care and expected duration. Pain level reassessed. Patient is alert, oriented x 3, equal unlabored respirations, skin warm/dry/pink. Vital Signs: 08:23 BP 154 / 102; Pulse 83; Resp 18; Temp 97.3; Pulse Ox 100% on R/A; Weight 149.69 kg; hb Height 5 ft. 5 in. (165.10 cm); Pain 8/10; 09:14 BP 146 / 102; Pulse 70; Pulse Ox 96% on R/A; ap3 10:14 BP 128 / 97; Pulse 64; Resp 13 S; Pulse Ox 97% on R/A; kc6 08:23 Body Mass Index 54.91 (149.69 kg, 165.10 cm) hb ED Course: 08:14 Patient arrived in ED. rg4 08:16 Mil Lance MD is Attending Physician. rt 08:22 Cammie Maier, VITA is Primary Nurse. kc6 08:24 Triage completed. hb 08:30 Patient has correct armband on for positive identification. Bed in low position. Call kc6 light in reach. Side rails up X2. Adult w/ patient. Client placed on continuous cardiac and pulse oximetry monitoring. NIBP monitoring applied. manager salt on. 08:30 Arm band placed on. kc6 08:32 EKG done, by ED staff. bc6 08:39 Troponin High Sensitivity Sent. kc6 08:39 CMP Sent. kc6 08:39 CBC with Diff Sent. kc6 08:39 Test, Serum Sent. kc6 08:39 TSH Sent. kc6 08:39 Inserted saline lock: 20 gauge in right antecubital area, using aseptic technique. kc6 Blood collected. Patient maintains SpO2 saturation greater than 95% on room air. 08:47 Chest Single View XRAY In Process Unspecified. EDMS 10:36 No provider procedures requiring assistance completed. IV discontinued, intact, ap3 bleeding controlled, No redness/swelling at site. Pressure dressing applied. Administered Medications: 08:40 Drug: NS 0.9% 1000 ml Route: IV; Rate: 1 bolus; Site: right antecubital; ap3 10:37 Follow up: Response: No adverse reaction; IV Status: Completed infusion; IV Intake: kc6 1000ml 08:40 Drug: Ketorolac 15 mg Route: IVP; Site: right antecubital; ap3 10:32 Follow up: Response: No adverse reaction; Pain is decreased ap3 Medication: 10:36 VIS not applicable for this client. ap3 Intake: 10:37 IV: 1000ml; Total: 1000ml. kc6 Outcome: 10:28 Discharge ordered by . rt 10:36 Discharged to home ambulatory. ap3 10:36 Condition: good 10:36 Discharge instructions given to patient, Instructed on discharge instructions, follow up and referral plans. medication usage, Demonstrated understanding of instructions, follow-up care, medications, Prescriptions given X 1. 10:36 Patient left the ED. ap3 Signatures: Dispatcher [employer] EDMS Daysi Meza RN RN Kaya Augustin rg4 Jill Sheridan RN RN ap3 Cammie Maier RN RN kc6 Mil Lance MD MD rt Shannon Justin 6 Corrections: (The following items were deleted from the chart) 08:24 08:24 PMHx: Bipolar disorder; hb hb
--- NOTE | 2022-06-20 10:29 | EDPHYS ---
Physician Documentation [facility] Name: Rachael Knox Age: 37 yrs Sex: Female : 1985 Arrival Date: 06/20/2022 Time: 08:14 Bed 6 Private MD: ED Physician Mil Lance HPI: 06/20 08:42 This 37 yrs old Female presents to ER via Ambulatory with complaints of rt Dizziness, Chest Pain. 08:42 The patient presents with lightheadedness. Onset: The symptoms/episode began/occurred rt last night. Modifying factors: The symptoms are alleviated by nothing, the symptoms are aggravated by nothing. Severity of symptoms: At their worst the symptoms were moderate. Patient presents to the ED with chest pain, shortness of breath, lightheadedness starting last night. Symptoms have been constant since then. She denies any wheezing. Denies other acute complaints at this time. Pain is aching nature, nonradiating, no other aggravating alleviating factors.. 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 - Family history:: not pertinent. - Social history:: Smoking status: Patient reports the use of cigarette tobacco products, denies chronic smoking, but will smoke occasionally. ROS: 08:42 Constitutional: Negative for fever, chills, and weight loss, ENT: Negative for injury, rt pain, and discharge, Abdomen/GI: Negative for abdominal pain, nausea, vomiting, diarrhea, and constipation, MS/Extremity: Negative for injury and deformity, Skin: Negative for injury, rash, and discoloration, Psych: Negative for depression, anxiety, suicide ideation, homicidal ideation, and hallucinations. 08:42 Cardiovascular: Positive for chest pain, Negative for edema. 08:42 Respiratory: Positive for shortness of breath, Negative for wheezing. 08:42 Neuro: Positive for dizziness, Negative for altered mental status. Exam: 08:42 Constitutional: This is a well developed, well nourished patient who is awake, alert, rt and in no acute distress. Head/Face: Normocephalic, atraumatic. ENT: Nares patent. No nasal discharge, no septal abnormalities noted. Tympanic membranes are normal and external auditory canals are clear. Oropharynx with no redness, swelling, or masses, exudates, or evidence of obstruction, uvula midline. Mucous membranes moist. Neck: Trachea midline, no thyromegaly or masses palpated, and no cervical lymphadenopathy. Supple, full range of motion without nuchal rigidity, or vertebral point tenderness. No Meningismus. Chest/axilla: Normal chest wall appearance and motion. Nontender with no deformity. No lesions are appreciated. Cardiovascular: Regular rate and rhythm with a normal S1 and S2. No gallops, murmurs, or rubs. Normal PMI, no JVD. No pulse deficits. Abdomen/GI: Soft, non-tender, with normal bowel sounds. No distension or tympany. No guarding or rebound. No evidence of tenderness throughout. Skin: Warm, dry with normal turgor. Normal color with no rashes, no lesions, and no evidence of cellulitis. MS/ Extremity: Pulses equal, no cyanosis. Neurovascular intact. Full, normal range of motion. Neuro: Awake and alert, GCS 15, oriented to person, place, time, and situation. Cranial nerves II-XII grossly intact. Motor strength 5/5 in all extremities. Sensory grossly intact. Cerebellar exam normal. Normal gait. Psych: Awake, alert, with orientation to person, place and time. Behavior, mood, and affect are within normal limits. 08:42 ECG was reviewed by the Attending Physician. 08:42 Respiratory: Faint wheezes heard, no respiratory distress. Vital Signs: 08:23 BP 154 / 102; Pulse 83; Resp 18; Temp 97.3; Pulse Ox 100% on R/A; Weight 149.69 kg; hb Height 5 ft. 5 in. (165.10 cm); Pain 8/10; 09:14 BP 146 / 102; Pulse 70; Pulse Ox 96% on R/A; ap3 10:14 BP 128 / 97; Pulse 64; Resp 13 S; Pulse Ox 97% on R/A; kc6 08:23 Body Mass Index 54.91 (149.69 kg, 165.10 cm) hb MDM: 08:23 Patient medically screened. rt 10:54 Differential diagnosis: ACS, pneumonia, pneumothorax, pulmonary ballismus. Data rt reviewed: vital signs, nurses notes, lab test result(s), EKG, radiologic studies. I considered the following discharge prescriptions or medication management in the emergency department Medications were administered in the Emergency Department. See MAR. Independent interpretation of the following test(s) in the Emergency Department X-Ray: My interpretation is No consolidation. External Records Reviewed: Reviewed prior ED visits. Care significantly affected by the following chronic conditions: Hypertension, Obesity. Response to treatment: the patient's symptoms have resolved after treatment. ED course: PERC negative, CTA not indicated.. 06/20 08:29 Order name: CBC with Diff; Complete Time: 09:18 rt 06/20 08:29 Order name: CMP; Complete Time: 09:34 rt 06/20 08:29 Order name: Troponin High Sensitivity; Complete Time: 09:34 rt 06/20 08:29 Order name: TSH; Complete Time: 09:34 rt 06/20 08:29 Order name: Test, Serum; Complete Time: 09:18 rt 06/20 09:17 Order name: T4 Free; Complete Time: 09:34 EDMS 06/20 08:29 Order name: EKG; Complete Time: 08:30 rt 06/20 08:29 Order name: EKG - Nurse/Tech; Complete Time: 08:32 rt 06/20 08:29 Order name: Chest Single View XRAY; Complete Time: 09:34 rt EC:42 Rate is 86 beats/min. Rhythm is regular, Normal Sinus Rhythm with No ectopy. QRS [place] rt is Normal. [place] interval is normal. QRS interval is normal. QT interval is prolonged at 500 msec. No Q waves. Clinical impression: NSR w/ Non-specific ST/T Changes. Administered Medications: 08:40 Drug: NS 0.9% 1000 ml Route: IV; Rate: 1 bolus; Site: right antecubital; ap3 10:37 Follow up: Response: No adverse reaction; IV Status: Completed infusion; IV Intake: kc6 1000ml 08:40 Drug: Ketorolac 15 mg Route: IVP; Site: right antecubital; ap3 10:32 Follow up: Response: No adverse reaction; Pain is decreased ap3 Disposition Summary: 06/20/22 10:28 Discharge Ordered Location: Home rt Problem: an ongoing problem rt Symptoms: have improved rt Condition: Stable rt Diagnosis - Chest pain, unspecified rt - Hypothyroidism, unspecified rt Followup: rt - With: Private Physician - When: 2 - 3 days - Reason: Discharge Instructions: - Discharge Summary Sheet rt - Nonspecific Chest Pain, Adult rt - Hypothyroidism rt Forms: - Medication Reconciliation Form rt - Work release form eb - Thank You Letter rt - Antibiotic Education rt - Prescription Opioid Use rt Prescriptions: - Levothyroxine 150 mcg Oral Tablet - take 1 tablet by ORAL route once daily take 30 minutes before breakfast; 20 rt tablet; Refills: 0, Product Selection Permitted Signatures: Dispatcher [employer] Daysi Ragland RN RN Jill Sheridan RN RN ap3 Mil Lance MD MD rt Cammie Maier RN kc6 Corrections: (The following items were deleted from the chart) 08:24 08:24 PMHx: Bipolar disorder; hb
[2022-06-20 11:01] VITALS: TEMP 97.3
[2022-06-20 11:03] VITALS: BP 128/97; O2SAT 97
== END 2022-06-20 10:36 | disposition home or self-care (01) ==
LOC: ER 08:12
DX: R07.89 Other chest pain (principal); E03.9 Hypothyroidism, unspecified; Z88.0 Allergy status to penicillin; Z88.2 Allergy status to sulfonamides
CPT/HCPCS: 36415; 71045; 80053; 84439; 84443; 84484; 84703; 85025; 93005; 96361; 96374; 99285; J7030

== ENCOUNTER 2022-08-13 20:51 | Emergency (ER) | payer SELFPAY ==
--- OUTSIDE RECORDS SUMMARY | 2022-08-13 20:54 | XMS REPORT | Continuity of Care Document ---
:1985 Author Organization [facility] t Address [address] [place] [id number] Care Team Providers Name Role Phone Unavailable Unavailable Unavailable Problems This patient has no known problems. Allergies, Adverse Reactions, Alerts This patient has no known allergies or adverse reactions. Medications This patient has no known medications. Procedures This patient has no known procedures. Results This patient has no known results.
[2022-08-13] MEDS ORDERED: LORazepam 2 MG/ML VIAL ONE (22:22)
[2022-08-13 22:51] LABS: Absolute Lymphocytes (CBC) 2.8 K/uL (0.7-4.9); Hematocrit 36.1 % (36.0-45.0); Lymphocytes % 31.1 % (15.3-44.8); MCV 93.8 fL (80-100); MPV 8.2 fL (7.6-11.3); RBC Red Blood Cell Count 3.85 M/uL (3.86-4.86)
[2022-08-13 22:52] LABS: Specific Gravity > 1.030 (1.005-1.030); Urine Bilirubin NEGATIVE (Negative); Urine Blood Negative (Negative); Urine Clarity Turbid (Clear); Urine Color Yellow (Yellow); Urine Glucose NEGATIVE (Negative); Urine Protein 1+ (Negative); Urine Urobilinogen 1+ (Normal); Urine pH 6.5 (5.0-7.0)
[2022-08-13 23:03] LABS: Magnesium 2.6 mg/dL (1.6-2.4); Potassium 3.9 mEq/L (3.5-5.1); Troponin High Sensitivity 3.8 pg/mL (<58.9)
[2022-08-13 23:04] LABS: Urine Bacteria 20-50 /HPF (<20); Urine Mucus 3+ /HPF (None Seen); Urine RBC <5 /HPF (None Seen)
[2022-08-13 23:24] LABS: Protime INR 0.95
[2022-08-14] MEDS ORDERED: NA CHLORIDE 0.9% 500 ML ONE (00:59)
[2022-08-14] MEDS ORDERED: KETOROLAC 30 MG/ML INJ ONE (00:59)
--- NOTE | 2022-08-14 08:38 | ER ---
Nurse's Notes [facility] Name: Rachael Knox Age: 37 yrs Sex: Female : 1985 Arrival Date: 08/13/2022 Time: 20:55 Bed 17 Private MD: Diagnosis: Chest pain, unspecified;Anxiety disorder, unspecified Presentation: 08/13 21:34 Chief complaint: Patient states: panic attacks X3 days. intermittent chest pain. lg3 constant chest pain starting today with facial heaviness. Coronavirus screen: Client denies travel out of the [place] in the last 14 days. At this time, the client does not indicate any symptoms associated with coronavirus-19. Ebola Screen: No symptoms or risks identified at this time. Initial Sepsis Screen: Does the patient meet any 2 criteria? No. Patient's initial sepsis screen is negative. Does the patient have a suspected source of infection? No. Patient's initial sepsis screen is negative. Risk Assessment: Do you want to hurt yourself or someone else? Patient reports no desire to harm self or others. Onset of symptoms is unknown. 21:34 Method Of Arrival: Ambulatory lg3 21:34 Acuity: DARSHAN 3 lg3 Triage Assessment: 21:36 General: Appears in no apparent distress. uncomfortable, Behavior is anxious, restless. lg3 Pain: Complains of pain in chest. EENT: No deficits noted. No signs and/or symptoms were reported regarding the EENT system. Neuro: No deficits noted. Gan Agitation-Sedation Scale (RASS): +1 Restless Level of Consciousness is awake, alert, obeys commands, Oriented to person, place, time, situation. Cardiovascular: Reports chest pain, Capillary refill < 3 seconds Clubbing of nail beds is absent JVD is absent. Respiratory: No deficits noted. Airway is patent Trachea midline Respiratory effort is even, unlabored, Respiratory pattern is regular, symmetrical. GI: No deficits noted. No signs and/or symptoms were reported involving the gastrointestinal system. Abdomen is round non-distended, obese. : No deficits noted. No signs and/or symptoms were reported regarding the genitourinary system. Derm: No deficits noted. No signs and/or symptoms reported regarding the dermatologic system. Skin is intact, is healthy with good turgor, Skin is dry, Skin is normal, Skin temperature is warm. Musculoskeletal: No deficits noted. No signs and/or symptoms reported regarding the musculoskeletal system. Circulation, motion, and sensation intact. Range of motion: intact in all extremities. WASTE HAND: 21:36 LMP 07/06/2022 lg3 Historical: - Allergies: 21:36 mycins; lg3 21:36 PENICILLINS; lg3 21:36 Sulfa (Sulfonamide Antibiotics); lg3 - Home Meds: 21:36 Synthroid 175 mcg Oral tablet daily [Active]; lg3 - PMHx: 21:36 Anemia; Anxiety; Asthma; Bipolar disorder; cardiac arrest; Hypertension; lg3 Hypothyroidism; NIDDM; blood transfusions; - PSHx: 21:36 Appendectomy; section; hernia repair; Tonsillectomy; tubal ligation; lg3 - Immunization history:: Adult Immunizations up to date, Client reports having NOT received the Covid vaccine. Flu vaccine is not up to date. - Social history:: Smoking status: Patient denies any tobacco usage or history of. Patient/guardian denies using alcohol, street drugs. Screenin:28 [facility] ED Fall Risk Assessment (Adult) History of falling in the last 3 months, mb9 including since admission No falls in past 3 months (0 pts) Confusion or Disorientation No (0 pts) Intoxicated or Sedated No (0 pts) Impaired Gait No (0 pts) Mobility Assist Device Used No (0 pt) Altered Elimination No (0 pt) Score/Fall Risk Level 0 - 2 = Low Risk Oriented to surroundings, Maintained a safe environment, Educated pt \T\ family on fall prevention, incl call for assistance when getting out of bed. Abuse screen: Denies threats or abuse. Nutritional screening: No deficits noted. Tuberculosis screening: No symptoms or risk factors identified. Assessment: 21:51 Reassessment: pt brought back to ER room. mb9 22:00 General: Appears in no apparent distress. Behavior is anxious. Pain: Complains of pain mb9 in chest Pain radiates to left arm Pain began suddenly. Neuro: Level of Consciousness is awake, alert, obeys commands, Oriented to person, place, time, situation, Appropriate for age. 22:00 Cardiovascular: Heart tones S1 S2 present Patient's skin is warm and dry. Rhythm is mb9 regular. Respiratory: Airway is patent Respiratory effort is even, unlabored, Respiratory pattern is regular, symmetrical. GI: Abdomen is round obese, Bowel sounds present X 4 quads. Abd is soft and non tender X 4 quads. : Urine is clear. Derm: Skin is pink, warm \T\ dry. Musculoskeletal: Range of motion: intact in all extremities. 23:26 Reassessment: No changes from previously documented assessment. Patient and/or family mb9 updated on plan of care and expected duration. Pain level reassessed. Patient is alert, oriented x 3, equal unlabored respirations, skin warm/dry/pink. 08/14 01:30 Reassessment: Patient and/or family updated on plan of care and expected duration. Pain vc1 level reassessed. Patient is alert, oriented x 3, equal unlabored respirations, skin warm/dry/pink. Patient states symptoms have improved. Vital Signs: 08/13 21:34 BP 141 / 90; Pulse 97; Resp 18 S; Temp 98.1(O); Pulse Ox 97% on R/A; Weight 151.95 kg lg3 (R); Height 5 ft. 5 in. (R); 22:30 BP 139 / 79; Pulse 82; Resp 22; Pulse Ox 97% on R/A; mb9 23:26 BP 133 / 77; Pulse 80; Resp 21; Pulse Ox 97% on R/A; mb9 08/14 01:00 BP 130 / 99; Pulse 75; Resp 14; Pulse Ox 92% ; vc1 08/13 21:34 Body Mass Index 55.75 (151.95 kg, 165.1 cm) lg3 ED Course: 08/13 20:55 Patient arrived in ED. es 21:05 Kang Clemente PA is PHCP. cp 21:05 Junito Sutton MD is Attending Physician. cp 21:36 Triage completed. lg3 21:36 Arm band placed on right wrist. lg3 21:56 nAat Waddell RN is Primary Nurse. mb9 22:00 No provider procedures requiring assistance completed. Inserted saline lock: 22 gauge mb9 in right antecubital area, using aseptic technique. 22:00 EKG done, by ED staff, reviewed by Kang SANDERS. mb9 22:29 Placed in gown. Bed in low position. Call light in reach. Side rails up X 1. Client mb9 placed on continuous cardiac and pulse oximetry monitoring. NIBP monitoring applied. traffic monitor specialist on. 08/14 01:32 IV discontinued, intact, bleeding controlled, No redness/swelling at site. Pressure vc1 dressing applied. Patient maintains SpO2 saturation greater than 95% on room air. Administered Medications: 08/13 22:27 Drug: Ativan IVP 1 mg Route: IVP; Site: right antecubital; mb9 23:28 Follow up: Response: No adverse reaction mb9 08/14 01:00 Drug: Ketorolac IVP 15 mg Route: IVP; Site: right antecubital; vc1 01:13 Not Given (Patient Refused): NS 0.9% IV 500 ml IV at bolus once vc1 Medication: 08/13 22:28 VIS not applicable for this client. mb9 Outcome: 08/14 01:13 Discharge ordered by . allan 01:32 Discharged to home ambulatory, with family. vc1 01:32 Condition: good 01:32 Discharge instructions given to patient, Instructed on discharge instructions, follow up and referral plans. medication usage, Demonstrated understanding of instructions, follow-up care, medications, Prescriptions given X 2. 01:33 Patient left the ED. vc1 Signatures: Selena Beltrán Corey, PA PA cp Gibson, Lacie, RN RN lg3 Makenzie Stone RN RN vc1 Anat Waddell, RN RN mb9
--- NOTE | 2022-08-14 08:38 | EDPHYS ---
Physician Documentation [facility] Name: Rachael Knox Age: 37 yrs Sex: Female : 1985 Arrival Date: 08/13/2022 Time: 20:55 Bed 17 Private MD: ED Physician Junito Sutton HPI: 08/13 21:35 This 37 yrs old Female presents to ER via Ambulatory with complaints of Chest cp Pain, Arm Pain. TRIBAL DELEGATE: 21:36 LMP 07/06/2022 lg3 Historical: - Allergies: 21:36 mycins; lg3 21:36 PENICILLINS; lg3 21:36 Sulfa (Sulfonamide Antibiotics); lg3 - Home Meds: 21:36 Synthroid 175 mcg Oral tablet daily [Active]; lg3 - PMHx: 21:36 Anemia; Anxiety; Asthma; Bipolar disorder; cardiac arrest; Hypertension; lg3 Hypothyroidism; NIDDM; blood transfusions; - PSHx: 21:36 Appendectomy; section; hernia repair; Tonsillectomy; tubal ligation; lg3 - Immunization history:: Adult Immunizations up to date, Client reports having NOT received the Covid vaccine. Flu vaccine is not up to date. - Social history:: Smoking status: Patient denies any tobacco usage or history of. Patient/guardian denies using alcohol, street drugs. ROS: 21:40 Constitutional: Negative for body aches, chills, fever, poor PO intake. cp Exam: 22:10 ECG was reviewed by the Attending Physician. cp Vital Signs: 21:34 BP 141 / 90; Pulse 97; Resp 18 S; Temp 98.1(O); Pulse Ox 97% on R/A; Weight 151.95 kg lg3 (R); Height 5 ft. 5 in. (R); 22:30 BP 139 / 79; Pulse 82; Resp 22; Pulse Ox 97% on R/A; mb9 23:26 BP 133 / 77; Pulse 80; Resp 21; Pulse Ox 97% on R/A; mb9 08/14 01:00 BP 130 / 99; Pulse 75; Resp 14; Pulse Ox 92% ; vc1 08/13 21:34 Body Mass Index 55.75 (151.95 kg, 165.1 cm) lg3 MDM: 08/13 21:39 Patient medically screened. cp 08/13 21:33 Order name: Basic Metabolic Panel cp 08/13 21:33 Order name: CBC with Diff cp 08/13 21:33 Order name: Magnesium cp 08/13 21:33 Order name: NT PRO-BNP cp 08/13 21:33 Order name: PT-INR cp 08/13 21:33 Order name: Troponin HS cp 08/13 21:33 Order name: Urinalysis W/Microscopic cp 08/13 21:33 Order name: PREGU cp 08/14 00:04 Order name: D-Dimer cp 08/14 00:04 Order name: LAB Add On cp 08/13 21:33 Order name: XRAY Chest (1 view) cp 08/13 21:33 Order name: EKG; Complete Time: 08:27 cp 08/13 21:33 Order name: Cardiac monitoring; Complete Time: 21:51 cp 08/13 21:33 Order name: EKG - Nurse/Tech; Complete Time: 22:05 cp 08/13 21:33 Order name: IV Saline Lock; Complete Time: 22:15 cp 08/13 21:33 Order name: Labs collected and sent; Complete Time: 22:15 cp 08/13 21:33 Order name: O2 Per Protocol; Complete Time: 21:51 cp 08/13 21:33 Order name: O2 Sat Monitoring; Complete Time: 21:51 cp EC:10 Rate is 82 beats/min. Rhythm is regular. [place] interval is normal. QRS interval is normal. cp QT interval is normal. T waves are Inverted in leads aVL, aVR. Interpreted by me. Reviewed by me. Administered Medications: 22:27 Drug: Ativan IVP 1 mg Route: IVP; Site: right antecubital; mb9 23:28 Follow up: Response: No adverse reaction 9 08/14 01:00 Drug: Ketorolac IVP 15 mg Route: IVP; Site: right antecubital; vc1 01:13 Not Given (Patient Refused): NS 0.9% IV 500 ml IV at bolus once vc1 Disposition: 01:54 Co-signature as Attending Physician, Junito Sutton MD I reviewed the patient's care rn provided by the Advanced Practice Provider and agree with the diagnosis and treatment plan. Disposition Summary: 08/14/22 01:13 Discharge Ordered Location: Home cp Problem: new cp Symptoms: have improved cp Condition: Stable cp Diagnosis - Chest pain, unspecified cp - Anxiety disorder, unspecified cp Followup: cp - With: Private Physician - When: 2 - 3 days - Reason: Recheck today's complaints Discharge Instructions: - Discharge Summary Sheet cp - Panic Attack cp - Nonspecific Chest Pain, Adult cp - Aspirin and Your Heart cp - Generalized Anxiety Disorder, Adult cp Forms: - Medication Reconciliation Form cp - Thank You Letter cp - Antibiotic Education cp - Prescription Opioid Use cp - School release form aa9 - Family Work Release aa9 Prescriptions: - Ativan 1 mg Oral Tablet - take 1 tablet by ORAL route every 12 hours As needed; 10 tablet; Refills: 0, cp Product Selection Permitted - Diclofenac Sodium 75 mg Oral Tablet Sustained Release - take 1 tablet by ORAL route 2 times per day; 30 tablet; Refills: 0, Product cp Selection Permitted Signatures: Dispatcher [employer] EDJunito Mcnally MD MD rn Kang Clemente, Nita Chen cp RN RN lg3 Makenzie Stone RN RN vc1 Anat Waddell RN RN mb9
[2022-08-14 11:48] VITALS: TEMP 98.1
[2022-08-14 12:01] VITALS: BP 130/99; O2SAT 92
--- NOTE | 2022-08-14 12:14 | EKG ---
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
--- NOTE | 2022-08-14 15:44 | RAD REPORT ---
EXAM DESCRIPTION: RAD - Chest Single View - 08/14/2022 6:53 am CLINICAL HISTORY: The patient is 37 years old and is Female; CHEST PAIN TECHNIQUE: Frontal view of the chest. COMPARISON: No relevant prior studies available. FINDINGS: Lungs: Unremarkable. No consolidation. Pleural space: Unremarkable. No pneumothorax. Heart: Unremarkable. Mediastinum: Unremarkable. Bones/joints: Unremarkable. IMPRESSION: No acute findings in the chest. Electronically signed by: Irvin Ortez MD 08/14/2022 1:10 AM CDT Due to temporary technical issues with the PACS/Fluency reporting system, reports are being signed by the in house radiologists without review as a courtesy to insure prompt reporting. The interpreting radiologist is fully responsible for the content of the report.
== END 2022-08-14 01:33 | disposition home or self-care (01) ==
LOC: ER 20:51
DX: R07.9 Chest pain, unspecified (principal); F41.9 Anxiety disorder, unspecified
CPT/HCPCS: 36415; 71045; 80048; 81001; 81025; 83735; 83880; 84484; 85025; 85379; 85610; 93005; J7040

== ENCOUNTER 2022-10-07 05:12 | Emergency (ER) | payer SELFPAY ==
--- OUTSIDE RECORDS SUMMARY | 2022-10-07 05:15 | XMS REPORT | Continuity of Care Document ---
:1985 Author Organization [facility] t Address [address] [place] [id number] Care Team Providers Name Role Phone Unavailable Unavailable Unavailable Problems This patient has no known problems. Allergies, Adverse Reactions, Alerts This patient has no known allergies or adverse reactions. Medications This patient has no known medications. Procedures This patient has no known procedures. Results This patient has no known results.
[2022-10-07 06:07] LABS: Absolute Lymphocytes (CBC) 3.9 K/uL (0.7-4.9); Hematocrit 37.6 % (36.0-45.0); MCV 93.1 fL (80-100); MPV 8.7 fL (7.6-11.3); RBC Red Blood Cell Count 4.03 M/uL (3.86-4.86)
[2022-10-07] MEDS ORDERED: IPRATROPIUM BROM 0.5MG/2.5ML ONE (06:10)
[2022-10-07] MEDS ORDERED: ALBUTEROL 2.5 MG/3 ML NEB SOL ONE (06:10)
[2022-10-07] MEDS ORDERED: METHYLPREDNISOLONE 125 MG INJ ONE (06:10)
[2022-10-07 06:13] LABS: Protime INR 0.91
[2022-10-07 06:39] LABS: ALT/SGPT 30 U/L (13-56); Albumin 3.7 g/dL (3.4-5.0); Alkaline Phosphatase 40 U/L (45-117); BUN Blood Urea Nitrogen 13 mg/dL (7-18); Bicarbonate 25 mEq/L (21-32); Bilirubin Total 0.2 mg/dL (0.2-1.0); Creatine Phosphokinase 748 U/L (26-192); Glomerular Filtration Rate 67 ml/min (=/>90); Glucose Level 115 mg/dL (74-106); Lipase 44 U/L (13-75); NT PRO-BNP 6 pg/mL (<125); Protein, Total 7.3 g/dL (6.4-8.2); Sodium Level 136 mEq/L (136-145); Troponin High Sensitivity 3.9 pg/mL (<58.9)
[2022-10-07 06:42] LABS: AST/SGOT 33 U/L (15-37); Bilirubin Direct < 0.1 mg/dL (0-0.2); Bilirubin Indirect, Calculated ND mg/dL (0.2-0.8); Magnesium 2.3 mg/dL (1.6-2.4); Potassium 3.7 mEq/L (3.5-5.1)
--- NOTE | 2022-10-07 07:04 | ER ---
Nurse's Notes [facility] Name: Rachael Knox Age: 37 yrs Sex: Female : 1985 Arrival Date: 10/07/2022 Time: 05:12 Bed 5 Private MD: Diagnosis: Acute bacterial bronchitis, left lower lung pneumonia, acute dyspnea, history of hypothyroidism, history of asthma, history of chronic anxiety and pain Presentation: 10/07 05:29 Chief complaint: Patient states: C/O SOB,onset 0300 with non-productive cough and pf1 congestion x 2 days, also C/O left posterior knee pain of 8,onset 3 days. Coronavirus screen: Vaccine status: Patient reports being unvaccinated. Client denies travel out of the [place] in the last 14 days. Client presents with at least one sign or symptom that may indicate coronavirus-19. Standard/surgical mask placed on the client. Ebola Screen: Patient negative for fever greater than or equal to 101.5 degrees Fahrenheit, and additional compatible Ebola Virus Disease symptoms. Initial Sepsis Screen: Does the patient meet any 2 criteria? No. Patient's initial sepsis screen is negative. Does the patient have a suspected source of infection? No. Patient's initial sepsis screen is negative. Risk Assessment: Do you want to hurt yourself or someone else? Patient reports no desire to harm self or others. 05:29 Method Of Arrival: Ambulatory pf1 05:29 Acuity: DARSHAN 3 pf1 07:30 Onset of symptoms is unknown. ap3 Triage Assessment: 07:30 General: Appears in no apparent distress. Behavior is calm, cooperative. Pain: ap3 Complains of pain in chest. Neuro: Level of Consciousness is awake, alert, obeys commands, Oriented to person, place, time, situation. Cardiovascular: Patient's skin is warm and dry. Respiratory: Reports shortness of breath cough that is the patient has mild shortness of breath. Respiratory: Airway is patent Respiratory effort is even, unlabored, Respiratory pattern is regular, symmetrical, Onset: The symptoms/episode began/occurred gradually. 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 Last tetanus immunization: < 10 years ago. - Social history:: Smoking status: Patient/guardian denies using tobacco, the patient reports quitting approximately 7 years ago, Patient/guardian denies using alcohol, street drugs. - Family history:: not pertinent. Screenin:02 [facility] ED Fall Risk Assessment (Adult) History of falling in the last 3 months, pf1 including since admission No falls in past 3 months (0 pts) Confusion or Disorientation No (0 pts) Intoxicated or Sedated No (0 pts) Impaired Gait No (0 pts) Mobility Assist Device Used No (0 pt) Altered Elimination No (0 pt) Score/Fall Risk Level 0 - 2 = Low Risk Oriented to surroundings, Maintained a safe environment, Educated pt \T\ family on fall prevention, incl call for assistance when getting out of bed, Assessed \T\ reinforced patient's understanding of fall precautions, Provided non-skid footwear, Hourly rounding (assess needs \T\ fall precautionary measures) done, Used ambulatory aids as needed (educated on \T\ assisted with), Used gait belt as appropriate. Abuse screen: Denies threats or abuse. Nutritional screening: No deficits noted. Tuberculosis screening: No symptoms or risk factors identified. Assessment: 05:50 General: Appears in no apparent distress. uncomfortable, Behavior is calm, cooperative, jb4 appropriate for age. Pain: Complains of pain in chest Pain does not radiate. Pain currently is 8 out of 10 on a pain scale. Quality of pain is described as pressure. Neuro: Level of Consciousness is awake, alert, obeys commands, Oriented to person, place, time, situation. Cardiovascular: Patient's skin is warm and dry. Respiratory: Airway is patent Respiratory effort is even, labored, Respiratory pattern is regular, symmetrical. GI: No signs and/or symptoms were reported involving the gastrointestinal system. : No signs and/or symptoms were reported regarding the genitourinary system. EENT: No signs and/or symptoms were reported regarding the EENT system. Derm: Skin is intact, Skin is pink, warm \T\ dry. Musculoskeletal: Circulation, motion, and sensation intact. Range of motion: intact in all extremities. 07:30 Cardiovascular: Rhythm is regular. ap3 07:47 Respiratory: ap3 Vital Signs: 05:29 BP 155 / 75; Pulse 84; Resp 18; Temp 97.7; Pulse Ox 97% on R/A; Weight 154.22 kg; pf1 Height 5 ft. 5 in. ; Pain 8/10; 07:31 BP 141 / 93; Pulse 78; Pulse Ox 96% ; ap3 05:29 Body Mass Index 56.58 (154.22 kg, 165.1 cm) pf1 05:29 Pain Scale: Adult pf1 ED Course: 05:13 Patient arrived in ED. ja2 05:21 Donato Martin MD is Attending Physician. sp4 05:30 Patient has correct armband on for positive identification. Bed in low position. Call pf1 light in reach. 05:38 Triage completed. pf1 05:40 Influenza Screen (a \T\ B) Sent. jb4 05:40 COVID-19 SARS RT PCR Sent. jb4 05:50 No provider procedures requiring assistance completed. Inserted saline lock: 18 gauge pf1 in right antecubital area, using aseptic technique. Blood collected. 05:53 XRAY CXR (1 view) In Process Unspecified. EDMS 05:58 BMP Sent. pf1 05:58 CBC with Diff Sent. pf1 05:58 CPK Sent. pf1 05:58 Hepatic Function Sent. pf1 05:58 Lipase Sent. pf1 06:47 Fredrick Galicia, RN is Primary Nurse. jb4 07:31 Arm band placed on right wrist. ap3 07:47 IV discontinued, intact, bleeding controlled, No redness/swelling at site. Pressure ap3 dressing applied. Administered Medications: 06:10 Drug: DuoNeb Nebulize (3:1) (2.5 mg - 0.5 mg) 3 ml Route: Nebulizer; jb4 07:32 Follow up: Response: No adverse reaction ap3 06:10 Drug: MethylPrednisoLONE IVP 125 mg Route: IVP; Site: right antecubital; jb4 07:32 Follow up: Response: No adverse reaction ap3 06:30 Not Given (Other Intervention Used): MethylPREDNISolone Sodium Succinate IM 125 mg IM jb4 once 07:29 Not Given (Patient Refused): Acetaminophen-Codeine PO (300 mg-30 mg) 2 tabs PO once; ap3 RASS on ADMIN: Combtv4, Very Agttd3, Agttd2, Rstlss1, AlertClm0, Drwsy-1, Lt Sdtn-2, Mod Sdtn-3, Dp Sdtn-4, UnArsble-5 07:29 Drug: diphenhydrAMINE PO 25 mg Route: PO; ap3 07:48 Follow up: Response: No adverse reaction ap3 07:29 Drug: Tessalon Perle PO 200 mg Route: PO; ap3 07:48 Follow up: Response: No adverse reaction ap3 07:29 Drug: AZITHromycin PO 500 mg Route: PO; ap3 07:48 Follow up: Response: No adverse reaction ap3 Medication: 07:31 VIS not applicable for this client. ap3 Outcome: 07:03 Discharge ordered by . sp4 07:47 Discharged to home ambulatory, with family. ap3 07:47 Condition: good 07:47 Discharge instructions given to patient, family, Instructed on discharge instructions, follow up and referral plans. medication usage, Demonstrated understanding of instructions, follow-up care, medications, Prescriptions given X 7 07:48 Patient left the ED. ap3 Signatures: Dispatcher [employer] EDMS Fredrick Galicia RN RN [email or web address] Jill Sheridan RN RN [email or web address] Hortensia Brennan Pamala, RN RN pf1 Donato Martin MD MD sp4
--- NOTE | 2022-10-07 07:04 | EDPHYS ---
Physician Documentation [facility] Name: aRchael Knox Age: 37 yrs Sex: Female : 1985 Arrival Date: 10/07/2022 Time: 05:12 Bed 5 Private MD: ED Physician Donato Martin HPI: 10/07 05:23 This 37 yrs old Female presents to ER via Unassigned with complaints of sp4 Shortness Of Breath. 06:40 . sp4 06:41 37-year-old female presents with nonproductive cough, congestion, shortness of breath sp4 for the past 3 days. Patient has history of colitis, hypothyroidism, asthma, bipolar disorder. Patient also reported some sort of restrictive lung disorder diagnosed in the past and is currently unmanaged. Patient denied taking any medications. Patient's last admission was 10/11/2021 for nausea vomiting, colitis, and abdominal pain. Patient's medications include albuterol every 4 hours albuterol nebulized, budesonide, ipratropium, levothyroxine 175, pantoprazole, sucralfate, ciprofloxacin, hydrocodone, ondansetron, metronidazole, prednisone. 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 Last tetanus immunization: < 10 years ago. - Social history:: Smoking status: Patient/guardian denies using tobacco, the patient reports quitting approximately 7 years ago, Patient/guardian denies using alcohol, street drugs. - Family history:: not pertinent. ROS: 06:50 Constitutional: Negative for fever, chills, and weight loss, feeling unwell overall sp4 06:50 Eyes: Negative for injury, pain, redness, and discharge, ENT: Negative for injury, pain, and discharge, positive upper respiratory congestion Neck: Negative for injury, pain, and swelling, Cardiovascular: Negative for chest pain, palpitations, and edema, Respiratory: Negative for wheezing, and pleuritic chest pain, positive for shortness of breath, cough, nonproductive cough Abdomen/GI: Negative for abdominal pain, nausea, vomiting, diarrhea, and constipation, Back: Negative for injury and pain, : Negative for injury, bleeding, discharge, and swelling, MS/Extremity: Negative for injury and deformity, Skin: Negative for injury, rash, and discoloration, Neuro: Negative for headache, weakness, numbness, tingling, and seizure, Psych: Negative for depression, anxiety, Allergy/Immunology: Negative for hives, rash, and allergies Endocrine: Negative for neck swelling, polydipsia, polyuria, polyphagia, and weight changes Hematologic/Lymphatic: Negative for swollen nodes, abnormal bleeding, and unusual bruising Exam: 06:50 Constitutional: This is a well developed, well nourished patient who is awake, alert, sp4 and in no acute distress. Head/Face: Normocephalic, atraumatic. Eyes: Pupils equal round and reactive to light, extra-ocular motions intact. Lids and lashes normal. Conjunctiva and sclera are not injected. Cornea within normal limits. Periorbital areas with no swelling, redness, or edema. ENT: Nares patent. No nasal discharge, no septal abnormalities noted. Tympanic membranes are normal and external auditory canals are clear. Oropharynx with no redness, swelling, or masses, exudates, or evidence of obstruction, uvula midline. Mucous membranes moist. Neck: Trachea midline, no thyromegaly or masses palpated, and no cervical lymphadenopathy. Supple, full range of motion without nuchal rigidity, or vertebral point tenderness. No Meningismus. Chest/axilla: Normal chest wall appearance and motion. Nontender with no deformity. No lesions are appreciated. Cardiovascular: Regular rate and rhythm with a normal S1 and S2. No gallops, murmurs, or rubs. Normal PMI, no JVD. No pulse deficits. Respiratory: Lungs have equal breath sounds bilaterally, clear to auscultation and percussion. No rales, rhonchi or wheezes noted. No increased work of breathing, no retractions or nasal flaring. Abdomen/GI: Soft, non-tender, with normal bowel sounds. No distension or tympany. No guarding or rebound. No evidence of tenderness throughout. Back: No spinal tenderness. No costovertebral tenderness. Skin: Warm, dry with normal turgor. Normal color with no rashes, no lesions, and no evidence of cellulitis. MS/ Extremity: Pulses equal, no cyanosis. Neurovascular intact. Full, normal range of motion. Neuro: Awake and alert, GCS 15, oriented to person, place, time, and situation. Cranial nerves II-XII grossly intact. Motor strength 5/5 in all extremities. Sensory grossly intact. Psych: Awake, alert, with orientation to person, place and time. Behavior, mood, and affect are within normal limits 06:50 ECG was reviewed by the Attending Physician. EKG time 0 556, normal sinus rhythm at the sp4 rate of [address] elevation or depression, no ectopy, no signs of acute ischemia Vital Signs: 05:29 BP 155 / 75; Pulse 84; Resp 18; Temp 97.7; Pulse Ox 97% on R/A; Weight 154.22 kg; pf1 Height 5 ft. 5 in. ; Pain 8/10; 07:31 BP 141 / 93; Pulse 78; Pulse Ox 96% ; ap3 05:29 Body Mass Index 56.58 (154.22 kg, 165.1 cm) pf1 05:29 Pain Scale: Adult pf1 MDM: 05:31 Patient medically screened. sp4 06:56 Differential diagnosis: Anxiety Reaction asthma, Bronchitis Chronic Obstructive sp4 Pulmonary Disease pneumonia, Psychogenic. Antibiotic administration: Zithromax administered. Data reviewed: vital signs, nurses notes, old medical records, lab test result(s), CBC, electrolytes, Flu: negative hepatic panel, EKG, radiologic studies, plain films. Consideration of Admission/Observation Escalation of care including admission/observation considered. ED course: Chest x-ray revealed mild prominent interstitial markings, left hemidiaphragm is obscured which can be seen with left pleural effusion as well as left lower lobe consolidation or atelectasis. . ED course: Labs revealed basically normal electrolyte panel, normal CBC, negative lipase, normal INR, normal troponin, negative COVID, negative influenza. 10/07 05:22 Order name: BMP; Complete Time: 06:54 sp4 10/07 05:22 Order name: CBC with Diff; Complete Time: 06:37 sp4 10/07 05:22 Order name: CPK; Complete Time: 06:54 sp4 10/07 05:22 Order name: Hepatic Function; Complete Time: 06:54 4 10/07 05:22 Order name: Lipase; Complete Time: 06:54 10/07 05:22 Order name: Magnesium; Complete Time: 06:54 10/07 05:22 Order name: NT PRO-BNP; Complete Time: 06:54 4 10/07 05:22 Order name: PT-INR; Complete Time: 06:37 10/07 05:22 Order name: Ptt, Activated; Complete Time: 06:37 10/07 05:22 Order name: Troponin HS; Complete Time: 06:54 10/07 05:22 Order name: COVID-19 SARS RT PCR; Complete Time: 06:37 10/07 05:22 Order name: Influenza Screen (a \T\ B); Complete Time: 06:37 10/07 05:22 Order name: XRAY CXR (1 view) 10/07 05:22 Order name: EKG; Complete Time: 05:23 10/07 05:22 Order name: Cardiac monitoring; Complete Time: 05:40 10/07 05:22 Order name: EKG - Nurse/Tech; Complete Time: 05:58 10/07 05:22 Order name: IV Saline Lock; Complete Time: 05:58 10/07 05:22 Order name: Labs collected and sent; Complete Time: 05:58 10/07 05:22 Order name: O2 Per Protocol; Complete Time: 05:40 10/07 05:22 Order name: O2 Sat Monitoring; Complete Time: 05:40 EC:50 Rate is 80 beats/min. Rhythm is regular, Normal Sinus Rhythm. DC interval is normal. sp4 QRS interval is prolonged. No ST changes noted. Clinical impression: No evidence of ischemia. Interpreted by me. Administered Medications: 06:10 Drug: DuoNeb Nebulize (3:1) (2.5 mg - 0.5 mg) 3 ml Route: Nebulizer; jb4 07:32 Follow up: Response: No adverse reaction ap3 06:10 Drug: MethylPrednisoLONE IVP 125 mg Route: IVP; Site: right antecubital; jb4 07:32 Follow up: Response: No adverse reaction ap3 06:30 Not Given (Other Intervention Used): MethylPREDNISolone Sodium Succinate IM 125 mg IM jb4 once 07:29 Not Given (Patient Refused): Acetaminophen-Codeine PO (300 mg-30 mg) 2 tabs PO once; ap3 RASS on ADMIN: Combtv4, Very Agttd3, Agttd2, Rstlss1, AlertClm0, Drwsy-1, Lt Sdtn-2, Mod Sdtn-3, Dp Sdtn-4, UnArsble-5 07:29 Drug: diphenhydrAMINE PO 25 mg Route: PO; ap3 07:48 Follow up: Response: No adverse reaction ap3 07:29 Drug: Tessalon Perle PO 200 mg Route: PO; ap3 07:48 Follow up: Response: No adverse reaction ap3 07:29 Drug: AZITHromycin PO 500 mg Route: PO; ap3 07:48 Follow up: Response: No adverse reaction ap3 Disposition Summary: 10/07/22 07:03 Discharge Ordered Location: Home sp4 Problem: new sp4 Symptoms: have improved sp4 Condition: Stable sp4 Diagnosis - Acute bacterial bronchitis, left lower lung pneumonia, acute dyspnea, history of sp4 hypothyroidism, history of asthma, history of chronic anxiety and pain Followup: sp4 - With: Private Physician - When: 7 - 10 days - Reason: Recheck today's complaints Discharge Instructions: - Discharge Summary Sheet sp4 - Acute Bronchitis, Adult, [id number] sp4 Forms: - Antibiotic Education sp4 Prescriptions: - Ventolin HFA 90 mcg/actuation Inhalation HFA Aerosol Inhaler - inhale 2 inhalation by INHALATION route every 4 hours as needed for sp4 bronchospasm; Dispense with Spacer; 1 unit; Refills: 0, Product Selection Permitted - Valium 5 mg Oral Tablet - take 1 tablet by ORAL route every 8 hours As needed; 20 tablet; Refills: 0, sp4 Product Selection Permitted - Tessalon Perles 100 mg Oral Capsule - take 1 capsule by ORAL route every 8 hours As needed; 30 capsule; Refills: 0, sp4 Product Selection Permitted - Albuterol Sulfate 2.5 mg /3 mL (0.083 %) Inhalation Solution for Nebulization - inhale 1 unit by NEBULIZATION route every 8 hours As needed Q 4 hours PRN sp4 dyspnea, via nebulizer, Dispense 50 respules or 2 boxes, Dispense with Nebulizer and adult mask; 50 unit; Refills: 0, Product Selection Permitted - Levothyroxine 150 mcg Oral Tablet - take 1 tablet by ORAL route once daily take 30 minutes before breakfast; 30 sp4 tablet; Refills: 0, Product Selection Permitted - Zithromax Z-Ed 250 mg Oral Tablet - take 1 tablet by ORAL route as directed for 5 days Day 1 - take two (2) tablets sp4 one time. Day 2, 3, 4 , 5 take one (1) tablet once daily.; 6 tablet; Refills: 0, Product Selection Permitted - Prednisone 20 mg Oral Tablet - take 2 tablets by ORAL route once daily for 5 days; 10 tablet; Refills: 0, sp4 Product Selection Permitted - promethazine 25 mg Oral Tablet - take 1 tablet by ORAL route every 6 hours As needed; 20 tablet; Refills: 0, sp4 Product Selection Permitted Signatures: Dispatcher [employer] Fredrick Werner RN RN jb4 Jill Sheridan RN RN ap3 Erica Rizvi RN RN pf1 Donato Martin MD MD sp4
[2022-10-07] MEDS ORDERED: BENZONATATE 100 MG CAP PO ONE (07:26)
[2022-10-07] MEDS ORDERED: DIPHENHYDRAMINE 25 MG TAB/CAP ONE (07:26)
[2022-10-07] MEDS ORDERED: CODEINE 30MG/APAP 300MG TAB ONE (07:28)
--- NOTE | 2022-10-07 07:45 | EKG ---
Test Date: 2022-10-07 Test Time: 05:56:15 Supervisor Chemical: CM MEASUREMENT RESULTS: Intervals: Rate: 80 MD: 156 QRSD: 112 QT: 440 QTc: 507 [place]: P: 35 MD: 156 QRS: 10 T: 133 INTERPRETIVE STATEMENTS: Normal sinus rhythm Nonspecific T wave abnormality Prolonged QT Abnormal ECG Compared to ECG 09/06/2022 13:38:21 T-wave abnormality now present Prolonged QT interval now present Electronically Signed On 10-07-22 07:45:15 CDT by Dagoberto Ramos
[2022-10-07 08:14] VITALS: TEMP 97.7
[2022-10-07 08:15] VITALS: BP 141/93; O2SAT 96
--- NOTE | 2022-10-07 15:57 | RAD REPORT ---
EXAM DESCRIPTION: RAD - Chest Single View - 10/07/2022 5:52 am CLINICAL HISTORY: The patient is 37 years old and is Female; CONGESTION TECHNIQUE: Frontal view of the chest. COMPARISON: No relevant prior studies available. FINDINGS: Lungs: Mildly prominent interstitial markings. Pleural space: Left hemidiaphragm is obscured which can be seen with left pleural effusion, as we ll as left lower lobe consolidation or atelectasis. No pneumothorax. Heart: Unremarkable. Mediastinum: Unremarkable. Bones/joints: Unremarkable. IMPRESSION: 1. Mildly prominent interstitial markings. 2. Left hemidiaphragm is obscured which can be seen with left pleural effusion, as well as left low er lobe consolidation or atelectasis. Electronically signed by: Irvin Ortez MD 10/07/2022 6:35 AM CDT Due to temporary technical issues with the PACS/Fluency reporting system, reports are being signed by the in house radiologist without review as a courtesy to ensure prompt reporting. The interpreting r adiologist is fully responsible for the content of the report.
== END 2022-10-07 07:48 | disposition home or self-care (01) ==
LOC: ER 05:12
DX: J20.9 Acute bronchitis, unspecified (principal); J18.9 Pneumonia, unspecified organism; E03.9 Hypothyroidism, unspecified; J45.909 Unspecified asthma, uncomplicated; F41.9 Anxiety disorder, unspecified; G89.29 Other chronic pain
CPT/HCPCS: 36415; 71045; 80048; 80076; 82550; 83690; 83735; 83880; 84484; 85025; 85610; 85730; 87804; 93005; 94640; 96374; 99285; J2930; J7613; J7644; U0003

== ENCOUNTER 2022-11-09 00:27 | Emergency (ER) | payer SELFPAY ==
--- OUTSIDE RECORDS SUMMARY | 2022-11-09 00:30 | XMS REPORT | Continuity of Care Document ---
:1985 Author Organization [facility] t Address [address] [place] [id number] Care Team Providers Name Role Phone Unavailable Unavailable Unavailable Problems This patient has no known problems. Allergies, Adverse Reactions, Alerts This patient has no known allergies or adverse reactions. Medications This patient has no known medications. Procedures This patient has no known procedures. Results This patient has no known results.
[2022-11-09 00:57] LABS: Absolute Lymphocytes (CBC) 2.4 K/uL (0.7-4.9); Hematocrit 34.2 % (36.0-45.0); Lymphocytes % 26.9 % (15.3-44.8); MCV 91.9 fL (80-100); MPV 7.8 fL (7.6-11.3); RBC Red Blood Cell Count 3.72 M/uL (3.86-4.86)
[2022-11-09] MEDS ORDERED: MORPHINE 4 MG/ML SYR ONE (00:59)
[2022-11-09] MEDS ORDERED: ONDANSETRON 4 MG/2 ML VIAL ONE (00:59)
[2022-11-09 01:02] LABS: Protime INR 0.93
[2022-11-09 01:25] LABS: ALT/SGPT 40 U/L (13-56); AST/SGOT 24 U/L (15-37); Albumin 3.4 g/dL (3.4-5.0); Alkaline Phosphatase 56 U/L (45-117); BUN Blood Urea Nitrogen 13 mg/dL (7-18); Bicarbonate 27 mEq/L (21-32); Bilirubin Total 0.2 mg/dL (0.2-1.0); Glomerular Filtration Rate 97 ml/min (=/>90); Glucose Level 138 mg/dL (74-106); Magnesium 2.2 mg/dL (1.6-2.4); NT PRO-BNP 18 pg/mL (<125); Potassium 3.3 mEq/L (3.5-5.1); Protein, Total 6.8 g/dL (6.4-8.2); Sodium Level 141 mEq/L (136-145)
[2022-11-09 01:28] LABS: Bilirubin Direct < 0.1 mg/dL (0-0.2); Bilirubin Indirect, Calculated ND mg/dL (0.2-0.8)
[2022-11-09] MEDS ORDERED: ALBUTEROL 2.5 MG/3 ML NEB SOL ONE (02:30)
[2022-11-09] MEDS ORDERED: IPRATROPIUM BROM 0.5MG/2.5ML ONE (02:30)
--- NOTE | 2022-11-09 03:30 | ER ---
Nurse's Notes [facility] Name: Rachael Knox Age: 37 yrs Sex: Female : 1985 Arrival Date: 11/09/2022 Time: 00:27 Bed 7 Private MD: Diagnosis: Chest pain, unspecified;Anxiety disorder, unspecified;Acute noncardiac chest pain Presentation: 11/09 00:34 Chief complaint: EMS states: Toned out for chest pain 12/01, pt states pain woke her up ll3 out of sleep. Coronavirus screen: Vaccine status: Patient reports being unvaccinated. At this time, the client does not indicate any symptoms associated with coronavirus-19. Ebola Screen: No symptoms or risks identified at this time. Initial Sepsis Screen: Does the patient meet any 2 criteria? No. Patient's initial sepsis screen is negative. Does the patient have a suspected source of infection? No. Patient's initial sepsis screen is negative. Risk Assessment: Do you want to hurt yourself or someone else? Patient reports no desire to harm self or others. Onset of symptoms was November 09, 2022. Care prior to arrival: Medication(s) given: ASA, 81 mg, x 4. 00:34 Method Of Arrival: EMS: [facility] ll3 00:34 Acuity: DARSHAN 2 ll3 Triage Assessment: 00:38 General: Appears uncomfortable, Behavior is calm, cooperative. Pain: Complains of pain ll3 in anterior aspect of left upper chest Pain radiates to back Pain currently is 7 out of 10 on a pain scale. Quality of pain is described as Pain began suddenly, Is continuous. Cardiovascular: Reports chest pain, shortness of breath, Patient's skin is warm and dry. Rhythm is sinus rhythm Chest pain is described as mild, quality is pressure, is located in left anterior chest wall radiates back began 1 hour prior to arrival episodes are continuous. Respiratory: Respiratory effort is even, unlabored, Respiratory pattern is regular, symmetrical. Derm: Skin is pink, warm \T\ dry. 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 - Social history:: Smoking status: Patient denies any tobacco usage or history of. Screenin:42 [facility] ED Fall Risk Assessment (Adult) History of falling in the last 3 months, ll3 including since admission No falls in past 3 months (0 pts) Confusion or Disorientation No (0 pts) Intoxicated or Sedated No (0 pts) Impaired Gait No (0 pts) Mobility Assist Device Used No (0 pt) Altered Elimination No (0 pt) Score/Fall Risk Level 0 - 2 = Low Risk Oriented to surroundings, Maintained a safe environment, Educated pt \T\ family on fall prevention, incl call for assistance when getting out of bed. Abuse screen: Denies threats or abuse. Denies injuries from another. Nutritional screening: No deficits noted. Tuberculosis screening: No symptoms or risk factors identified. Assessment: 00:38 General: See triage assessment. ll3 Vital Signs: 00:34 BP 120 / 92; Pulse 86; Resp 18; Temp 98.6(O); Pulse Ox 96% on R/A; Weight 154.22 kg ll3 (R); Height 5 ft. 5 in. (R); Pain 7/10; 02:10 BP 101 / 64; Pulse 78; Resp 19; Pulse Ox 92% on R/A; kd3 03:40 BP 141 / 82; Pulse 84; Resp 15; Pulse Ox 99% on R/A; kd3 00:34 Body Mass Index 56.58 (154.22 kg, 165.1 cm) ll3 00:34 Pain Scale: Adult ll3 ED Course: 00:28 Patient arrived in ED. sb4 00:30 Donato Martin MD is Attending Physician. sp4 00:38 Triage completed. ll3 00:38 Arm band placed on Patient placed in an exam room, on a stretcher, on cardiac rehab nurse, ll3 on pulse oximetry. EKG completed in triage. Results shown to MD. 00:43 Patient has correct armband on for positive identification. Bed in low position. Call ll3 light in reach. Side rails up X 1. 01:28 XRAY Chest (1 view) In Process Unspecified. EDMS 02:17 Joyce Monaco, RN is Primary Nurse. kd3 03:40 No provider procedures requiring assistance completed. IV discontinued, intact, kd3 bleeding controlled, No redness/swelling at site. Pressure dressing applied. Administered Medications: 00:56 Drug: morphine IVP or IV 4 mg Route: IVP; Infused Over: 4 mins; Site: right antecubital;ll3 03:41 Follow up: Response: No adverse reaction; Pain is decreased kd3 00:56 Drug: Ondansetron IVP 4 mg Route: IVP; Site: right antecubital; ll3 03:40 Follow up: Response: No adverse reaction kd3 02:25 Drug: DuoNeb Nebulize (3:1) (2.5 mg - 0.5 mg) 3 ml Route: Nebulizer; kd3 03:40 Follow up: Response: No adverse reaction; Wheezing diminished kd3 03:33 Drug: Diazepam PO 5 mg Route: PO; ll3 03:40 Follow up: Response: No adverse reaction kd3 Medication: 03:40 VIS not applicable for this client. kd3 Outcome: 03:29 Discharge ordered by . sp4 03:40 Discharged to home ambulatory. kd3 03:40 Condition: stable 03:40 Discharge instructions given to patient, Instructed on discharge instructions, follow up and referral plans. medication usage, Demonstrated understanding of instructions, follow-up care, medications, Prescriptions given X 1. 03:41 Patient left the ED. kd3 Signatures: Dispatcher [employer] [facility] Naomy Boswell RN RN [id number] Joyce Monaco, RN RN kd3 Dilia Denny, RIDDHI PADonato Alaniz MD MD sp4
--- NOTE | 2022-11-09 03:30 | EDPHYS ---
Physician Documentation [facility] Name: Rachael Knox Age: 37 yrs Sex: Female : 1985 Arrival Date: 11/09/2022 Time: 00:27 Bed 7 Private MD: ED Physician Donato Martin HPI: 11/09 00:31 This 37 yrs old Female presents to ER via Unassigned with complaints of chest sp4 pain. 03:21 Patient reported midsternal chest pain starting on awakening acutely without exertion. sp4 Patient has history of anemia, anxiety, asthma, bipolar disorder, history of blood transfusion. Patient arrived with EMS. 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 - Social history:: Smoking status: Patient denies any tobacco usage or history of. ROS: 03:21 Constitutional: Negative for fever, chills, and weight loss, Eyes: Negative for injury, sp4 pain, redness, and discharge, ENT: Negative for injury, pain, and discharge, Neck: Negative for injury, pain, and swelling, Cardiovascular: Negative for palpitations, and edema, positive for chest pain Respiratory: Negative for shortness of breath, cough, wheezing, and pleuritic chest pain, Abdomen/GI: Negative for abdominal pain, nausea, vomiting, diarrhea, and constipation, Back: Negative for injury and pain, : Negative for injury, bleeding, discharge, and swelling, MS/Extremity: Negative for injury and deformity, Skin: Negative for injury, rash, and discoloration, Neuro: Negative for headache, weakness, numbness, tingling, and seizure, Psych: Negative for depression, anxiety, Allergy/Immunology: Negative for hives, rash, and allergies Endocrine: Negative for neck swelling, polydipsia, polyuria, polyphagia, and weight changes Hematologic/Lymphatic: Negative for swollen nodes, abnormal bleeding, and unusual bruising Exam: 03:22 Constitutional: This is a well developed, well nourished patient who is awake, alert, sp4 and in no acute distress. Head/Face: Normocephalic, atraumatic. Eyes: Pupils equal round and reactive to light, extra-ocular motions intact. Lids and lashes normal. Conjunctiva and sclera are not injected. Cornea within normal limits. Periorbital areas with no swelling, redness, or edema. ENT: Nares patent. No nasal discharge, no septal abnormalities noted. Tympanic membranes are normal and external auditory canals are clear. Oropharynx with no redness, swelling, or masses, exudates, or evidence of obstruction, uvula midline. Mucous membranes moist. Neck: Trachea midline, no thyromegaly or masses palpated, and no cervical lymphadenopathy. Supple, full range of motion without nuchal rigidity, or vertebral point tenderness. Chest/axilla: Normal chest wall appearance and motion. Nontender with no deformity. No lesions are appreciated. Cardiovascular: Regular rate and rhythm with a normal S1 and S2. No gallops, murmurs, or rubs. Normal PMI, no JVD. No pulse deficits. Respiratory: Lungs have equal breath sounds bilaterally, clear to auscultation and percussion. No rales, rhonchi or wheezes noted. No increased work of breathing, no retractions or nasal flaring. Abdomen/GI: Soft, non-tender, with normal bowel sounds. No distension or tympany. No guarding or rebound. No evidence of tenderness throughout. Back: No spinal tenderness. No costovertebral tenderness. Skin: Warm, dry with normal turgor. Normal color with no rashes, no lesions, and no evidence of cellulitis. MS/ Extremity: Pulses equal, no cyanosis. Neurovascular intact. Full, normal range of motion. Neuro: Awake and alert, GCS 15, oriented to person, place, time, and situation. Cranial nerves II-XII grossly intact. Motor strength 5/5 in all extremities. Sensory grossly intact. Psych: Awake, alert, with orientation to person, place and time. Behavior, mood, and affect are within normal limits 03:22 ECG was reviewed by the Attending Physician. EKG revealed normal sinus rhythm, at a sp4 rate of 87, prolonged QT, otherwise normal EKG. Vital Signs: 00:34 BP 120 / 92; Pulse 86; Resp 18; Temp 98.6(O); Pulse Ox 96% on R/A; Weight 154.22 kg ll3 (R); Height 5 ft. 5 in. (R); Pain 7/10; 02:10 BP 101 / 64; Pulse 78; Resp 19; Pulse Ox 92% on R/A; kd3 03:40 BP 141 / 82; Pulse 84; Resp 15; Pulse Ox 99% on R/A; kd3 00:34 Body Mass Index 56.58 (154.22 kg, 165.1 cm) ll3 00:34 Pain Scale: Adult ll3 MDM: 00:33 Patient medically screened. sp4 03:22 Differential Diagnosis altered mental status, Cardiac chest pain, noncardiac chest sp4 pain, anxiety. Data reviewed: vital signs, nurses notes, EMS record, old medical records, EKG, radiologic studies, plain films. ED course: Chest x-ray unremarkable, EKG normal, labs reveal blood sugar of 138, otherwise normal labs, hemoglobin 11.4 troponin negative, otherwise labs unremarkable. 03:28 ED course: Based on the patient's age and risk factors patient unlikely to have ACS at sp4 this time, patient will be given Valium as needed for anxiety. She will be discharged home. She will be advised to see a electrical prospecting engineer for follow-up.. 18 00:32 Order name: Test, Serum; Complete Time: 03:20 sp4 18 00:54 Order name: Basic Metabolic Panel; Complete Time: 03:20 EDMS 18 00:54 Order name: Liver (Hepatic) Function; Complete Time: 03:20 EDMS 18 00:54 Order name: Troponin High Sensitivity; Complete Time: 03:20 EDMS 18 00:54 Order name: NT PRO-BNP; Complete Time: 03:20 EDMS 18 00:54 Order name: Magnesium; Complete Time: 03:20 EDMS 0618 00:54 Order name: CBC with Automated Diff; Complete Time: 03:20 EDMS 18 00:54 Order name: Protime (+INR); Complete Time: 03:20 EDMS 11/09 00:32 Order name: XRAY Chest (1 view) sp4 11/09 00:32 Order name: EKG; Complete Time: 01:04 sp4 11/09 00:32 Order name: Cardiac monitoring; Complete Time: 00:43 sp4 11/09 00:32 Order name: EKG - Nurse/Tech; Complete Time: 00:43 sp4 11/09 00:32 Order name: IV Saline Lock; Complete Time: 00: sp4 11/09 00:32 Order name: Labs collected and sent; Complete Time: 00:43 sp4 11/09 00:32 Order name: O2 Per Protocol; Complete Time: : sp4 11/09 00:32 Order name: O2 Sat Monitoring; Complete Time: : sp4 EC:22 Rate is 87 beats/min. Rhythm is regular, Normal Sinus Rhythm. QRS [place] is Normal. [place] sp4 interval is normal. QRS interval is normal. QT interval is prolonged. T waves are Normal. No ST changes noted. Clinical impression: No evidence of ischemia. Interpreted by me. Administered Medications: 00:56 Drug: morphine IVP or IV 4 mg Route: IVP; Infused Over: 4 mins; Site: right antecubital;ll3 03:41 Follow up: Response: No adverse reaction; Pain is decreased kd3 00:56 Drug: Ondansetron IVP 4 mg Route: IVP; Site: right antecubital; ll3 03:40 Follow up: Response: No adverse reaction kd3 02:25 Drug: DuoNeb Nebulize (3:1) (2.5 mg - 0.5 mg) 3 ml Route: Nebulizer; kd3 03:40 Follow up: Response: No adverse reaction; Wheezing diminished kd3 03:33 Drug: Diazepam PO 5 mg Route: PO; ll3 03:40 Follow up: Response: No adverse reaction kd3 Disposition Summary: 11/09/22 03:29 Discharge Ordered Location: Home sp4 Problem: new sp4 Symptoms: have improved sp4 Condition: Stable sp4 Diagnosis - Chest pain, unspecified sp4 - Anxiety disorder, unspecified sp4 - Acute noncardiac chest pain sp4 Followup: sp4 - With: Private Physician - When: 7 - 10 days - Reason: Recheck today's complaints Discharge Instructions: - Discharge Summary Sheet sp4 - Nonspecific Chest Pain, Adult, [id number] sp4 Prescriptions: - Valium 5 mg Oral Tablet - take 1 tablet by ORAL route every 12 hours As needed PRN anxiety; 12 tablet; sp4 Refills: 0, Product Selection Permitted Signatures: Dispatcher [employer] EDNaomy Reid, RN RN ll3 Joyce Monaco RN RN kd3 Dilia Denny PAJosiC PAYung sb4 Donato Martin MD MD sp4 Corrections: (The following items were deleted from the chart) 01:24 01:04 CBC+H.LAB.BRZ ordered. EDMS EDMS 01:25 01:04 BASIC METABOLIC PANEL+C.LAB.BRZ ordered. EDMS EDMS 01:25 01:04 HEPATIC FUNCTION+C.LAB.BRZ ordered. EDMS EDMS 01:25 01:04 MAGNESIUM+C.LAB.BRZ ordered. EDMS EDMS 01:25 01:04 PROBNP+C.LAB.BRZ ordered. EDMS EDMS 01:25 01:04 Troponin High Sensitivity+C.LAB.BRZ ordered. EDMS EDMS 01:32 01:04 PROTIME (+INR)+COAG.LAB.BRZ ordered. EDMS EDMS
[2022-11-09] MEDS ORDERED: DIAZEPAM 5 MG TABLET ONE (03:39)
[2022-11-09 03:46] VITALS: TEMP 98.6
[2022-11-09 03:49] VITALS: BP 141/82; O2SAT 99
--- NOTE | 2022-11-10 14:24 | RAD REPORT ---
EXAM DESCRIPTION: RAD - Chest Single View - 11/09/2022 1:27 am CLINICAL HISTORY: The patient is 37 years old and is Female; CHEST PAIN TECHNIQUE: Frontal view of the chest. COMPARISON: No relevant prior studies available. FINDINGS: Lungs: Unremarkable. No consolidation. Pleural space: Unremarkable. No pneumothorax. Heart: Unremarkable. Mediastinum: Unremarkable. Bones/joints: Unremarkable. IMPRESSION: No acute findings in the chest. Electronically signed by: Irvin Ortez MD 11/09/2022 2:12 AM CDT Due to temporary technical issues with the PACS/Fluency reporting system, reports are being signed by the in house radiologist without review as a courtesy to ensure prompt reporting. The interpreting r adiologist is fully responsible for the content of the report.
--- NOTE | 2022-11-10 17:51 | EKG ---
Test Date: 2022-11-09 Test Time: 00:36:02 Doorperson Or Luggage Porter: SYDNEY MEASUREMENT RESULTS: Intervals: Rate: 87 ND: 146 QRSD: 102 QT: 434 QTc: 522 [place]: P: 57 ND: 146 QRS: 16 T: 35 INTERPRETIVE STATEMENTS: Normal sinus rhythm Prolonged QT Abnormal ECG Compared to ECG 10/07/2022 05:56:15 T-wave abnormality no longer present Electronically Signed On 11-10-22 17:49:46 CDT by Jeb Rodas
== END 2022-11-09 03:41 | disposition home or self-care (01) ==
LOC: ER 00:27
DX: F41.9 Anxiety disorder, unspecified (principal)
CPT/HCPCS: 36415; 71045; 80048; 80076; 83735; 83880; 84484; 84703; 85025; 85610; 93005; 94640; 96374; 96375; 99285; J2405; J7613; J7644

== ENCOUNTER 2022-12-21 10:14 | Emergency (ER) | payer SELFPAY ==
--- OUTSIDE RECORDS SUMMARY | 2022-12-21 10:17 | XMS REPORT | Continuity of Care Document ---
:1985 Author Organization [facility] t Address [address] [facility] [address] [place] [id number] Care Team Providers Name Role Phone Unavailable Unavailable Unavailable Problems This patient has no known problems. Allergies, Adverse Reactions, Alerts This patient has no known allergies or adverse reactions. Medications This patient has no known medications. Procedures This patient has no known procedures. Results This patient has no known results.
[2022-12-21] MEDS ORDERED: ALBUTEROL 2.5 MG/3 ML NEB SOL ONE (11:10)
[2022-12-21] MEDS ORDERED: IPRATROPIUM BROM 0.5MG/2.5ML ONE (11:10)
--- NOTE | 2022-12-21 12:02 | ER ---
Nurse's Notes [facility] Name: Rachael Knox Age: 37 yrs Sex: Female : 1985 Arrival Date: 12/21/2022 Time: 10:14 Bed 8 Private MD: Diagnosis: Mild intermittent asthma with (acute) exacerbation;Other otitis externa, right ear Presentation: 12/21 10:24 Chief complaint: Patient states: SOB x 4 days, hx of asthma, rescue inhaler not ph helping, also c/o R ear pain, sinus congestion and migraine that started today. Coronavirus screen: Vaccine status: Patient reports being unvaccinated. Ebola Screen: No symptoms or risks identified at this time. Initial Sepsis Screen: Does the patient meet any 2 criteria? No. Patient's initial sepsis screen is negative. Does the patient have a suspected source of infection? No. Patient's initial sepsis screen is negative. Risk Assessment: Do you want to hurt yourself or someone else? Patient reports no desire to harm self or others. Onset of symptoms was December 21, 2022. 10:24 Method Of Arrival: Ambulatory ph 10:24 Acuity: DARSHAN 3 ph Triage Assessment: 12:04 Respiratory: the patient has mild shortness of breath. ph Historical: - Allergies: 10:27 Bactrim; ph 10:27 mycins; ph 10:27 PENICILLINS; ph 10:27 Sulfa (Sulfonamide Antibiotics); ph - Home Meds: 10:27 Synthroid 150 mcg Oral tablet 1 tab daily [Active]; ph - PMHx: 10:27 Anemia; Anxiety; Asthma; Bipolar disorder; Blood transfusions; cardiac arrest; ph Hypertension; Hypothyroidism; NIDDM; - PSHx: 10:27 Appendectomy; section; hernia repair; Tonsillectomy; tubal ligation; ph - Immunization history:: Adult Immunizations unknown. - Social history:: Smoking status: Patient denies any tobacco usage or history of. Screenin:04 [facility] ED Fall Risk Assessment (Adult) History of falling in the last 3 months, ph including since admission No falls in past 3 months (0 pts). Abuse screen: Denies threats or abuse. Denies injuries from another. Nutritional screening: No deficits noted. Tuberculosis screening: No symptoms or risk factors identified. Assessment: 10:30 General: Appears in no apparent distress. comfortable, Behavior is calm, cooperative, ph appropriate for age, Denies fever, chills. Pain: Complains of pain in right ear and headache. Neuro: Level of Consciousness is awake, alert, obeys commands, Oriented to person, place, time, situation, Reports headache. Cardiovascular: Capillary refill < 3 seconds in bilateral fingers Patient's skin is warm and dry. Respiratory: Reports shortness of breath at rest Airway is patent Respiratory effort is even, unlabored, Respiratory pattern is regular, symmetrical. EENT: Reports pain in right ear. Derm: Skin is pink, warm \T\ dry. Vital Signs: 10:24 BP 159 / 96; Pulse 83; Resp 18; Temp 97; Pulse Ox 95% on R/A; Weight 154.67 kg; Height ph 5 ft. 5 in. ; 12:05 BP 125 / 68; Pulse 77; Resp 20; Temp 97.5; Pulse Ox 95% on R/A; ph 10:24 Body Mass Index 56.74 (154.67 kg, 165.1 cm) ph ED Course: 10:16 Patient arrived in ED. ts1 10:17 Kei Dover DO is Attending Physician. ms3 10:24 Peggy Liriano, RN is Primary Nurse. ph 10:27 Triage completed. ph 10:27 Arm band placed on Patient placed in an exam room, on a stretcher. ph 12:01 Cedric Bowling DO is Referral Physician. ms3 12:04 Patient has correct armband on for positive identification. Placed in gown. Bed in low ph position. Call light in reach. Side rails up X 1. Pulse ox on. NIBP on. 12:04 No provider procedures requiring assistance completed. Patient did not have IV access ph during this emergency room visit. Administered Medications: 11:03 Drug: Albuterol Inhalation 5 mg Route: Inhalation; ph 12:02 Follow up: Response: No adverse reaction ph 11:03 Drug: Ipratropium Inhalation Aerosol 0.5 mg Route: Inhalation; ph 12:02 Follow up: Response: No adverse reaction ph 12:02 Drug: predniSONE PO 60 mg Route: PO; ph 12:02 Follow up: Response: No adverse reaction ph Medication: 12:04 VIS not applicable for this client. ph Outcome: 12:02 Discharge ordered by . ms3 12:05 Condition: good ph 12:15 Discharged to home ambulatory. ph 12:15 Discharge instructions given to patient, Instructed on discharge instructions, follow up and referral plans. medication usage, Demonstrated understanding of instructions, follow-up care, medications, Prescriptions given X 2. 12:15 Patient left the ED. ph Signatures: Peggy Liriano RN RN ph Kei Dover DO DO ms3 Shaylee Man, PATRICIA GOMEZ ts1
--- NOTE | 2022-12-21 12:02 | EDPHYS ---
Physician Documentation [facility] Name: Rachael Knox Age: 37 yrs Sex: Female : 1985 Arrival Date: 12/21/2022 Time: 10:14 Bed 8 Private MD: ED Physician Kei Dover HPI: 12/21 12:05 This 37 yrs old Female presents to ER via Ambulatory with complaints of ms3 Shortness Of Breath, Ear Pain, Headache. 12:05 37-year-old female with past medical history of anemia, anxiety, asthma, bipolar, blood ms3 transfusions presents for right ear pain, sinus congestion/asthma for 3 to 4 days. Patient states her right ear is rated a 7/10 described as throbbing. Patient denies any alleviating or inciting factors. Historical: - Allergies: 10:27 Bactrim; ph 10:27 mycins; ph 10:27 PENICILLINS; ph 10:27 Sulfa (Sulfonamide Antibiotics); ph - Home Meds: 10:27 Synthroid 150 mcg Oral tablet 1 tab daily [Active]; ph - PMHx: 10:27 Anemia; Anxiety; Asthma; Bipolar disorder; Blood transfusions; cardiac arrest; ph Hypertension; Hypothyroidism; NIDDM; - PSHx: 10:27 Appendectomy; section; hernia repair; Tonsillectomy; tubal ligation; ph - Immunization history:: Adult Immunizations unknown. - Social history:: Smoking status: Patient denies any tobacco usage or history of. ROS: 12:05 Constitutional: Negative for fever, and chills. Neck: Negative for injury, pain, and ms3 swelling, Cardiovascular: Negative for chest pain, and palpitations. Abdomen/GI: Negative for abdominal pain, nausea, vomiting, diarrhea, and constipation, MS/Extremity: Negative for injury and deformity, Skin: Negative for injury, rash, and discoloration. 12:05 Respiratory: Positive for wheezing. 12:05 All other systems are negative. Exam: 12:04 ECG was reviewed by the Attending Physician. ms3 12:05 Constitutional: This is a well developed, well nourished patient who is awake, alert, ms3 and in no acute distress. Head/Face: Normocephalic, atraumatic. Neck: Trachea midline, no cervical lymphadenopathy. Supple, full range of motion without nuchal rigidity, or vertebral point tenderness. No Meningismus. Chest/axilla: Normal chest wall appearance and motion. Nontender with no deformity. Cardiovascular: Regular rate and rhythm with a normal S1 and S2. No gallops, murmurs, or rubs. Normal PMI, no JVD. No pulse deficits. Abdomen/GI: Soft, non-tender, with normal bowel sounds. No distension or tympany. No guarding or rebound. No evidence of tenderness throughout. 12:05 Respiratory: the patient does not display signs of respiratory distress, Respirations: normal, Breath sounds: wheezing: expiratory that is mild. 12:05 ENT: External ear(s): Ear canal(s): erythema, that is moderate, of the right canal, ms3 Examination of the other ear shows no obvious abnormality, No mastoid tenderness. Vital Signs: 10:24 BP 159 / 96; Pulse 83; Resp 18; Temp 97; Pulse Ox 95% on R/A; Weight 154.67 kg; Height ph 5 ft. 5 in. ; 12:05 BP 125 / 68; Pulse 77; Resp 20; Temp 97.5; Pulse Ox 95% on R/A; ph 10:24 Body Mass Index 56.74 (154.67 kg, 165.1 cm) ph MDM: 10:52 Patient medically screened. ms3 12:05 Differential diagnosis: asthma, reactive airway disease, Otitis externa. ms3 12:05 Data reviewed: vital signs, nurses notes, and as a result, I will discharge patient. I ms3 considered the following discharge prescriptions or medication management in the emergency department Medications were administered in the Emergency Department. See MAR. Independent interpretation of the following test(s) in the Emergency Department EKG: See my EKG interpretation above. Test considered but Not performed: X-ray: Patients wheezing resolved after nebulizer treatment. Care significantly affected by the following chronic conditions: Asthma. Counseling: I had a detailed discussion with the patient and/or guardian regarding: the historical points, exam findings, and any diagnostic results supporting the discharge/admit diagnosis, the need for outpatient follow up, to return to the emergency department if symptoms worsen or persist or if there are any questions or concerns that arise at home. Medication response: albuterol nebulizer treatment(s) relieved the patient's symptoms. The patient is no longer wheezing. Response to treatment: the patient's symptoms have resolved after treatment, Wheezing resolved, and as a result, I will discharge patient. Special discussion: I discussed with the patient/guardian in detail that at this point there is no indication for admission to the hospital. It is understood, however, that if the symptoms persist or worsen the patient needs to return immediately for re-evaluation. EC:04 Rate is 81 beats/min. Rhythm is regular. QRS [place] is Normal. [place] interval is normal. QRS ms3 interval is normal. Clinical impression: NSR w/ Non-specific ST/T Changes. Interpreted by me. Reviewed by me. Administered Medications: 11:03 Drug: Albuterol Inhalation 5 mg Route: Inhalation; ph 12:02 Follow up: Response: No adverse reaction ph 11:03 Drug: Ipratropium Inhalation Aerosol 0.5 mg Route: Inhalation; ph 12:02 Follow up: Response: No adverse reaction ph 12:02 Drug: predniSONE PO 60 mg Route: PO; ph 12:02 Follow up: Response: No adverse reaction ph Disposition Summary: 12/21/22 12:02 Discharge Ordered Location: Home ms3 Condition: Stable ms3 Diagnosis - Mild intermittent asthma with (acute) exacerbation ms3 - Other otitis externa, right ear ms3 Followup: ms3 - With: Cedric Bowling DO - When: 2 - 3 days - Reason: Recheck today's complaints Discharge Instructions: - Discharge Summary Sheet ms3 - Asthma, Adult ms3 - Otitis Externa ms3 Forms: - Medication Reconciliation Form ms3 - Thank You Letter ms3 - Antibiotic Education ms3 - Prescription Opioid Use ms3 - Patient Portal Instructions ms3 Prescriptions: - Prednisone 20 mg Oral Tablet - take 2 tablets by ORAL route once daily for 5 days; 10 tablet; Refills: 0, ms3 Product Selection Permitted - Ciprodex 0.3-0.1 % Otic drops,suspension - instill 4 drops by OTIC route every 12 hours for 7 days , for ears ONLY; 1 ms3 dropperful; Refills: 0, Product Selection Permitted Signatures: Peggy Liriano RN RN Kei Cota DO DO ms3
[2022-12-21] MEDS ORDERED: predniSONE 20 MG TAB ONE (12:10)
[2022-12-21 12:35] VITALS: O2SAT 95
[2022-12-21 12:36] VITALS: BP 125/68; TEMP 97.5
--- NOTE | 2022-12-22 18:53 | EKG ---
Test Date: 2022-12-21 Test Time: 10:23:07 Stove Mechanic: Carl ASHLEY MEASUREMENT RESULTS: Intervals: Rate: 81 SC: 144 QRSD: 90 QT: 390 QTc: 453 [place]: P: 59 SC: 144 QRS: 79 T: 245 INTERPRETIVE STATEMENTS: Normal sinus rhythm Low voltage QRS Nonspecific T wave abnormality Abnormal ECG Compared to ECG 11/09/2022 00:36:02 Low QRS voltage now present T-wave abnormality now present Prolonged QT interval no longer present Electronically Signed On 12-22-22 18:48:51 CDT by Jeb Rodas
== END 2022-12-21 12:15 | disposition home or self-care (01) ==
LOC: ER 10:14
DX: J45.21 Mild intermittent asthma with (acute) exacerbation (principal); H60.8X1 Other otitis externa, right ear; I10 Essential (primary) hypertension; Z88.0 Allergy status to penicillin; Z88.1 Allergy status to other antibiotic agents; Z88.2 Allergy status to sulfonamides; Z88.3 Allergy status to other anti-infective agents
CPT/HCPCS: 93005; 99284; J7512; J7613; J7644

== ENCOUNTER 2023-01-09 21:30 | Observation (INO) | payer OTHER, SELFPAY ==
--- OUTSIDE RECORDS SUMMARY | 2023-01-09 21:32 | XMS REPORT | Continuity of Care Document ---
:1985 Author Organization [facility] t Address [address] [place] [id number] Care Team Providers Name Role Phone Unavailable Unavailable Unavailable Problems This patient has no known problems. Allergies, Adverse Reactions, Alerts This patient has no known allergies or adverse reactions. Medications This patient has no known medications. Procedures This patient has no known procedures. Results This patient has no known results.
[2023-01-09] MEDS ORDERED: METHYLPREDNISOLONE 125 MG INJ ONE (22:09)
[2023-01-09] MEDS ORDERED: IPRATROPIUM BROM 0.5MG/2.5ML ONE (22:10)
[2023-01-09] MEDS ORDERED: ALBUTEROL 2.5 MG/3 ML NEB SOL ONE (22:10)
[2023-01-09 22:36] LABS: Absolute Lymphocytes (CBC) 3.4 K/uL (0.7-4.9); Hematocrit 38.7 % (36.0-45.0); Lymphocytes % 35.3 % (15.3-44.8); MCV 91.3 fL (80-100); MPV 8.7 fL (7.6-11.3); Platelets 255 thou/uL (152-406); RBC Red Blood Cell Count 4.24 M/uL (3.86-4.86)
--- NOTE | 2023-01-09 22:42 | RAD REPORT ---
EXAM DESCRIPTION: RADChest Single View01/09/2023 10:22 pm CLINICAL HISTORY: SOB COMPARISON: Chest Single View dated 11/09/2022; Chest Single View dated 10/07/2022; Chest Single View dated 09/06/2022; Chest Single View dated 08/14/2022 TECHNIQUE: Portable AP view of the chest. FINDINGS: The lungs are clear. No pneumothorax or effusion. The cardiomediastinal contours are unrem arkable. IMPRESSION: No acute cardiopulmonary process.
[2023-01-09 22:52] LABS: BUN Blood Urea Nitrogen 9 mg/dL (7-18); Bicarbonate 31 mEq/L (21-32); Glomerular Filtration Rate 64 ml/min (=/>90); Glucose Level 95 mg/dL (74-106); Magnesium 2.4 mg/dL (1.6-2.4); Potassium 3.6 mEq/L (3.5-5.1); Sodium Level 138 mEq/L (136-145)
[2023-01-09 22:59] LABS: NT PRO-BNP < 5 pg/mL (<125)
--- NOTE | 2023-01-09 23:51 | P.HP ---
Certification for Inpatient Patient admitted to: Observation With expected LOS: <2 Midnights Patient will require the following post-hospital care: None Practitioner: I am a practitioner with admitting privileges, knowledge of patient current condition, hospital course, and medical plan of care. Services: Services provided to patient in accordance with Admission requirements found in Title 42 Section 412.3 of the Code of Federal Regulations Patient History Date of Service: 01/09/23 Reason for admission: Asthma exacerbation History of Present Illness: 37-year-old female with history of asthma, hypothyroidism presents to the emergency department chief complaint of shortness of breath. She reports she was in the hospital approximately 1 to 2 weeks ago and given some oral steroids which she was unable to get filled for financial reasons, she reports continued to be worse since then especially the last couple days. She was evaluated in the emergency department her labs were unremarkable chest x-ray negative for acute findings, she was presenting with expiratory wheezing, still persistently wheezing after nebs, steroids. Also room air sats low 90s and as low as 88%. Allergies erythromycin base Allergy (Verified 06/23/21 08:58) Hives/Rash Penicillins Allergy (Verified 06/23/21 08:58) Hives/Rash Sulfa (Sulfonamide Antibiotics) Allergy (Verified 06/23/21 08:58) Hives/Rash sulfamethoxazole [From Bactrim] Allergy (Verified 06/23/21 08:58) Unknown trimethoprim [From Bactrim] Allergy (Verified 06/23/21 08:58) Unknown Home Medications: Albuterol Sulfate [Proair Hfa] 2 puff IH Q4H PRN 06/08/21 Albuterol Neb [Proventil 0.083% Neb Soln] 2.5 mg NEB [id number] PRN #120 amp 07/02/21 Budesonide [Pulmicort] 1 amp NEB BID #60 amp 07/02/21 Ipratropium Neb [Atrovent*] 0.5 mg NEB [id number] PRN #120 amp 07/02/21 Levothyroxine Sodium [Synthroid] 175 mcg PO DAILY #30 tablet 07/02/21 Pantoprazole [Protonix Tab*] 40 mg PO BIDAC #60 tab 07/02/21 Sucralfate [Carafate*] 10 ml PO ACHS #420 ml 02/08/22 Ciprofloxacin HCl [Cipro 500 MG Tablet] 500 mg PO BID #10 tab 10/12/21 Hydrocodone 7.5/APAP 325 [[place] 7.5/325 mg*] 1 tab PO Q6H PRN #12 tab 10/12/21 Ondansetron [Zofran (Odt)*] 4 mg PO Q6H PRN #30 tab 10/12/21 metroNIDAZOLE [Flagyl*] 500 mg PO TID #15 tablet 10/12/21 predniSONE [Prednisone*] 40 mg PO DAILY #5 tab 10/12/21 - Past Medical/Surgical History Diabetic: No -: hypothyroidism -: anxiety -: depression -: bipolar -: Asthma -: Anxiety -: COVID pneumonia -: c section -: tubal ligation -: tonsillectomy -: Adenoidectomy -: Hernia repair,abdominal -: Appendectomy Psychosocial/ Personal History: 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 moist/pink, EOMI, Sclerae nonicteric Neck: Supple, 2+ carotid pulse no bruit, No LAD, Without JVD or thyroid abnormality Respiratory: Diminished, Expiratory wheezes Cardiovascular: Regular rate/rhythm, Normal S1 S2 Gastrointestinal: Normal bowel sounds, No tenderness Musculoskeletal: No tenderness Integumentary: No rashes Neurological: Normal gait, Normal speech, Normal strength at 5/5 x4 extr, Normal tone, Normal affect Lymphatics: No axilla or inguinal lymphadenopathy - Studies Laboratory Data (last 24 hrs) 01/09/23 01/09/23 22:10 22:10 WBC 9.60 Hgb 12.9 Hct 38.7 Plt Count 255 Sodium 138 Potassium 3.6 BUN 9 Creatinine 1.13 H Glucose 95 Magnesium 2.4 Assessment and Plan - Plan Assessment: Asthma exacerbation Hypothyroidism Plan: Asthma exacerbation Continue p.o. steroids, ICS, as needed nebulizer treatments, Daily room air saturations. Pulmonology consult. Hypothyroidism Continue home medications. DVT PPX: Lovenox Code status: Full Discharge Plan: Home Plan to discharge in: 24 Hours - Advance Directives Does patient have a Living Will: No Does patient have a Durable POA for Healthcare: No - Code Status/Comfort Care Code Status Assessed: Yes (Full code) Critical Care: No Time Spent Managing Pts Care (In Minutes): 55
[2023-01-10] MEDS ORDERED: ENOXAPARIN 40 MG/0.4 ML SQ ONE (00:11)
--- NOTE | 2023-01-10 00:11 | EDPHYS ---
Physician Documentation [facility] Name: Rachael Knox Age: 37 yrs Sex: Female : 1985 Arrival Date: 01/09/2023 Time: 21:30 Bed 12 Private MD: ED Physician Georgia Yi HPI: 01/09 22:00 This 37 yrs old Female presents to ER via Ambulatory with complaints of Asthma cp Exacerbation. 22:00 The patient has shortness of breath at rest. Onset: The symptoms/episode began/occurred cp gradually, and became worse 3 day(s) ago. 22:00 Duration: The symptoms are continuous, and are steadily getting worse. Associated signs cp and symptoms: Pertinent negatives: chest pain, productive cough, fever, hemoptysis. Severity of symptoms: in the emergency department the symptoms are unchanged despite home interventions. Historical: - Allergies: 21:44 Bactrim; cm10 21:44 mycins; cm10 21:44 PENICILLINS; cm10 21:44 Sulfa (Sulfonamide Antibiotics); cm10 - PMHx: 21:44 Anemia; Anxiety; Asthma; Bipolar disorder; Blood transfusions; cardiac arrest; cm10 Hypertension; Hypothyroidism; NIDDM; - PSHx: 21:44 Appendectomy; section; hernia repair; Tonsillectomy; tubal ligation; cm10 - Immunization history:: Adult Immunizations unknown. - Social history:: Smoking status: Patient denies any tobacco usage or history of. ROS: 22:05 Constitutional: Negative for body aches, chills, fever, poor PO intake. cp 22:05 Eyes: Negative for injury, pain, redness, and discharge. cp 22:05 ENT: Negative for drainage from ear(s), ear pain, sore throat. 22:05 Cardiovascular: Negative for chest pain, edema, palpitations. 22:05 Respiratory: Positive for cough, with no reported sputum, shortness of breath. 22:05 Abdomen/GI: Negative for abdominal pain, vomiting, diarrhea, constipation. 22:05 All other systems are negative. Exam: 22:05 Head/Face: Normocephalic, atraumatic. cp 22:05 Constitutional: The patient appears in no acute distress, alert, awake, non-diaphoretic, non-toxic, well developed, well nourished, obese. 22:05 Eyes: Periorbital structures: appear normal, Conjunctiva: normal, no exudate, no injection, Sclera: no appreciated abnormality, Lids and lashes: appear normal, bilaterally. 22:05 ENT: External ear(s): are unremarkable, Nose: is normal, Mouth: is normal, Posterior pharynx: is normal. 22:05 Chest/axilla: Inspection: normal. 22:05 Cardiovascular: Rate: normal, Rhythm: regular. 22:05 Respiratory: mild respiratory distress is noted, Respirations: labored breathing, that is mild, Breath sounds: stridor, is not appreciated, wheezing: that is mild, is heard diffusely. 22:35 ECG was reviewed by the Attending Physician. Vital Signs: 21:45 BP 148 / 109; Pulse 87; Resp 22; Temp 98.8; Pulse Ox 92% on R/A; Weight 160.12 kg; cm10 Height 5 ft. 5 in. ; 21:54 Pulse Ox 88% on R/A; cm10 22:45 BP 131 / 96; Pulse 77; Resp 17; Pulse Ox 92% on 2 lpm NC; Pain 0/10; pf1 23:45 BP 126 / 83; Pulse 71; Resp 18; Pulse Ox 93% on 2 lpm NC; Pain 0/10; pf1 21:45 Body Mass Index 58.74 (160.12 kg, 165.1 cm) cm10 22:45 Pain Scale: Adult pf1 23:45 Pain Scale: Adult pf1 21:54 O2 sat after ambulating from triage to room. cm10 MDM: 21:52 Patient medically screened. 01/09 21:54 Order name: Basic Metabolic Panel; Complete Time: 23:01 cp 01/09 23:01 Interpretation: Normal except: CRE 1.13; GFR 64. cp 01/09 21:54 Order name: CBC with Diff; Complete Time: 23:01 cp 01/09 23:01 Interpretation: EOSINOPHIL % 6.8; EOSA 0.6. cp 01/09 21:54 Order name: Magnesium; Complete Time: 23:01 cp 01/09 21:54 Order name: NT PRO-BNP; Complete Time: 23:01 cp 01/09 21:54 Order name: XRAY Chest (1 view); Complete Time: 23:01 cp 08/18 21:54 Order name: EKG; Complete Time: 21:54 cp 01/09 21:54 Order name: Cardiac monitoring; Complete Time: 22:14 cp 01/09 21:54 Order name: EKG - Nurse/Tech; Complete Time: 22:53 cp 08 21:54 Order name: IV Saline Lock; Complete Time: 22:14 cp 08 21:54 Order name: Labs collected and sent; Complete Time: 22:14 cp 01/09 21:54 Order name: O2 Per Protocol; Complete Time: 22:14 cp 01/09 21:54 Order name: O2 Sat Monitoring; Complete Time: 22:14 cp 01/09 23:03 Order name: Misc. Order: ambulate with pulse; Complete Time: 23:49 cp EC:35 Rate is 81 beats/min. Rhythm is regular. GA interval is normal. QRS interval is cp prolonged at 102 msec. QT interval is normal. T waves are Inverted in lead II. Interpreted by me. Reviewed by me. Administered Medications: 22:00 Drug: DuoNeb Nebulize (2.5 mg - 0.5 mg) 3 ml Route: Nebulizer; pf1 22:55 Follow up: Response: No adverse reaction; Marked relief of symptoms pf1 22:12 Drug: MethylPrednisoLONE IVP 125 mg Route: IVP; Site: left antecubital; pf1 22:55 Follow up: Response: No adverse reaction; Marked relief of symptoms pf1 01/10 00:03 Drug: Lovenox Sub-Q 40 mg Route: Sub-Q; Site: abdomen; cm10 00:41 Follow up: Response: No adverse reaction; Marked relief of symptoms pf1 Disposition: 06:36 STAFF ATTESTATION STATEMENT: I was immediately available onsite in the emergency sd2 department for consultation in the care of this patient. I did not see or examine this patient. Georgia Yi MD. Disposition Summary: 01/10/23 00:10 Hospitalization Ordered Hospitalization Status: Observation cp Provider: Willam Be cp Location: Telemetry/MedSurg (observation) cp Condition: Stable cp Problem: an acute exacerbation cp Symptoms: have improved cp Bed/Room Type: Standard Room Assignment: 224(01/10/23 00:23) cg Diagnosis - Unspecified asthma with (acute) exacerbation cp - Hypoxemia cp Forms: - Medication Reconciliation Form cp - SBAR form cp - Leadership Thank You Letter cp Signatures: Dispatcher [employer] Kang Berrios PA PA cp Garcia, Cindy, RN RN Georgia Lainez MD MD sd2 Erica Rizvi RN RN pf1 Annmarie Kwon RN RN cm10 Corrections: (The following items were deleted from the chart) 00:23 00:10 cp cg
--- NOTE | 2023-01-10 00:11 | ER ---
Nurse's Notes [facility] Name: Rachael Knox Age: 37 yrs Sex: Female : 1985 Arrival Date: 01/09/2023 Time: 21:30 Bed 12 Private MD: Diagnosis: Unspecified asthma with (acute) exacerbation;Hypoxemia Presentation: 01/09 21:45 Chief complaint: Patient states: Asthma exacerbation X3 days. Pt states that her cm10 inhaler hasn't been working at home. Pt has audible wheezing in triage. Coronavirus screen: Vaccine status: Patient reports being unvaccinated. Ebola Screen: Patient denies travel to an Ebola-affected area in the 21 days before illness onset. No symptoms or risks identified at this time. Initial Sepsis Screen: Does the patient meet any 2 criteria? No. Patient's initial sepsis screen is negative. Does the patient have a suspected source of infection? No. Patient's initial sepsis screen is negative. Risk Assessment: Do you want to hurt yourself or someone else? Patient reports no desire to harm self or others. Onset of symptoms was January 09, 2023. 21:45 Method Of Arrival: Ambulatory cm10 21:45 Acuity: DARSHAN 3 cm10 Historical: - Allergies: 21:44 Bactrim; cm10 21:44 mycins; cm10 21:44 PENICILLINS; cm10 21:44 Sulfa (Sulfonamide Antibiotics); cm10 - PMHx: 21:44 Anemia; Anxiety; Asthma; Bipolar disorder; Blood transfusions; cardiac arrest; cm10 Hypertension; Hypothyroidism; NIDDM; - PSHx: 21:44 Appendectomy; section; hernia repair; Tonsillectomy; tubal ligation; cm10 - Immunization history:: Adult Immunizations unknown. - Social history:: Smoking status: Patient denies any tobacco usage or history of. Screenin:54 [facility] ED Fall Risk Assessment (Adult) History of falling in the last 3 months, pf1 including since admission No falls in past 3 months (0 pts) Confusion or Disorientation No (0 pts) Intoxicated or Sedated No (0 pts) Impaired Gait No (0 pts) Mobility Assist Device Used No (0 pt) Altered Elimination No (0 pt) Score/Fall Risk Level 0 - 2 = Low Risk Oriented to surroundings, Maintained a safe environment, Educated pt \T\ family on fall prevention, incl call for assistance when getting out of bed, Assessed \T\ reinforced patient's understanding of fall precautions, Provided non-skid footwear, Hourly rounding (assess needs \T\ fall precautionary measures) done, Used ambulatory aids as needed (educated on \T\ assisted with), Used gait belt as appropriate. Abuse screen: Denies threats or abuse. Nutritional screening: No deficits noted. Tuberculosis screening: No symptoms or risk factors identified. Assessment: 22:00 General: Appears in no apparent distress. comfortable, obese, well developed, Behavior pf1 is calm, cooperative, appropriate for age, quiet. 22:00 Pain: Denies pain. Neuro: No deficits noted. Level of Consciousness is awake, alert, pf1 obeys commands, Oriented to person, place, time, situation. Cardiovascular: No deficits noted. Capillary refill < 3 seconds Patient's skin is warm and dry. Respiratory: Airway is patent Respiratory effort is even, unlabored, Respiratory pattern is regular, symmetrical, Breath sounds with wheezes bilaterally. GI: No deficits noted. Abdomen is round non-distended, obese. : No deficits noted. No signs and/or symptoms were reported regarding the genitourinary system. EENT: No deficits noted. No signs and/or symptoms were reported regarding the EENT system. Derm: No deficits noted. No signs and/or symptoms reported regarding the dermatologic system. 23:00 Reassessment: Patient appears in no apparent distress at this time. Patient and/or pf1 family updated on plan of care and expected duration. Pain level reassessed. Patient is alert, oriented x 3, equal unlabored respirations, skin warm/dry/pink. Patient states symptoms have improved. 01/10 00:05 Reassessment: Patient appears in no apparent distress at this time. Patient and/or pf1 family updated on plan of care and expected duration. Pain level reassessed. Patient is alert, oriented x 3, equal unlabored respirations, skin warm/dry/pink. Patient states symptoms have improved. Vital Signs: 01/09 21:45 BP 148 / 109; Pulse 87; Resp 22; Temp 98.8; Pulse Ox 92% on R/A; Weight 160.12 kg; cm10 Height 5 ft. 5 in. ; 21:54 Pulse Ox 88% on R/A; cm10 22:45 BP 131 / 96; Pulse 77; Resp 17; Pulse Ox 92% on 2 lpm NC; Pain 0/10; pf1 23:45 BP 126 / 83; Pulse 71; Resp 18; Pulse Ox 93% on 2 lpm NC; Pain 0/10; pf1 21:45 Body Mass Index 58.74 (160.12 kg, 165.1 cm) cm10 22:45 Pain Scale: Adult pf1 23:45 Pain Scale: Adult pf1 21:54 O2 sat after ambulating from triage to room. cm10 ED Course: 21:34 Patient arrived in ED. im 21:45 Arm band placed on Patient placed in an exam room, on a stretcher. cm10 21:46 Triage completed. cm10 21:51 Kang Clemente PA is PHCP. cp 21:51 Georgia Yi MD is Attending Physician. cp 22:10 Inserted saline lock: 22 gauge in left antecubital area, using aseptic technique. Blood pf1 collected. 22:14 Basic Metabolic Panel Sent. pf1 22:14 CBC with Diff Sent. pf1 22:14 Magnesium Sent. pf1 22:14 NT PRO-BNP Sent. pf1 22:24 XRAY Chest (1 view) In Process Unspecified. EDMS 01/10 00:09 Willam Be MD is Hospitalizing Provider. cp 00:33 Patient has correct armband on for positive identification. Call light in reach. Side cm10 rails up X 1. Provided Education on: N/A. 00:33 No provider procedures requiring assistance completed. Patient admitted, IV remains in cm10 place. Administered Medications: 01/09 22:00 Drug: DuoNeb Nebulize (2.5 mg - 0.5 mg) 3 ml Route: Nebulizer; pf1 22:55 Follow up: Response: No adverse reaction; Marked relief of symptoms pf1 22:12 Drug: MethylPrednisoLONE IVP 125 mg Route: IVP; Site: left antecubital; pf1 22:55 Follow up: Response: No adverse reaction; Marked relief of symptoms pf1 01/10 00:03 Drug: Lovenox Sub-Q 40 mg Route: Sub-Q; Site: abdomen; cm10 00:41 Follow up: Response: No adverse reaction; Marked relief of symptoms pf1 Medication: 00:33 VIS not applicable for this client. cm10 Outcome: 00:10 Decision to Hospitalize by Provider. cp 00:32 Admitted to Med/surg accompanied by tech, via wheelchair, room 224, with oxygen, Report cm10 called to VITA Barnes 00:32 Condition: good 00:32 Instructed on the need for admit. 00:41 Patient left the ED. pf1 Signatures: Dispatcher [employer] EDMS Kang Clemente PA PA cp Finley, Pamala, RN RN pf1 Savana Vann Clarissa, RN RN cm10
[2023-01-10] MEDS ORDERED: ACETAMINOPHEN 500 MG TAB PO PRN (00:51)
[2023-01-10] MEDS ORDERED: BENZONATATE 100 MG CAP PO PRN (00:51)
[2023-01-10] MEDS ORDERED: ONDANSETRON 4 MG/2 ML VIAL IV PRN (00:51)
[2023-01-10] MEDS: ALBUTEROL 2.5 MG/3 ML NEB SOL NEB PRN ×4 (01:05→22:40)
[2023-01-10 01:51] VITALS: BMI 58.7
[2023-01-10 03:15] LABS: Hematocrit 38.4 % (36.0-45.0); Lymphocytes % 10.5 % (15.3-44.8); MCV 91.2 fL (80-100); MPV 9.1 fL (7.6-11.3); Platelets 241 thou/uL (152-406); RBC Red Blood Cell Count 4.21 M/uL (3.86-4.86)
[2023-01-10 03:31] LABS: Potassium 3.6 mEq/L (3.5-5.1)
[2023-01-10 04:32] LABS: Blood Morphology Comment NOT SEEN (NOT SEEN); Platelet Estimate ADEQ; White Blood Cell Scan OK (OK)
[2023-01-10] MEDS: predniSONE 20 MG TAB PO SCH ×2 (08:53→20:45)
[2023-01-10] MEDS: ENOXAPARIN 40 MG/0.4 ML SQ SCH (08:54)
[2023-01-10] MEDS ORDERED: POTASSIUM CL SA 10 MEQ TAB PO ONE (09:00)
--- NOTE | 2023-01-10 10:43 | P.DS ---
Admission Date: 01/09/23 Discharge Date: 01/10/23 Disposition: ROUTINE DISCHARGE Discharge Condition: GOOD Reason for Admission: Asthma exacerbation Brief History of Present Illness: 37-year-old female with history of asthma, hypothyroidism presents to the emergency department chief complaint of shortness of breath. She reports she was in the hospital approximately 1 to 2 weeks ago and given some oral steroids which she was unable to get filled for financial reasons, she reports continued to be worse since then especially the last couple days. She was evaluated in the emergency department her labs were unremarkable chest x-ray negative for acute findings, she was presenting with expiratory wheezing, still persistently wheezing after nebs, steroids. Also room air sats low 90s and as low as 88%. Hospital Course: She responded well to present therapy and she did well. her oxygen saturation improved well. she was deemed stable for dc home with prednisone prescription and albuterol inhaler. she will follow up with her PCP for care post hospitalization. Vital Signs/Physical Exam: Temp Pulse Resp BP Pulse Ox 97.1 F 84 18 145/80 H 94 01/10/23 04:00 01/10/23 04:00 01/10/23 04:00 01/10/23 04:00 01/10/23 04:00 Laboratory Data at Discharge: WBC 9.80 thou/uL (4.3-10.9) 01/10/23 02:46 Hgb 12.7 g/dL (12.0-15.0) 01/10/23 02:46 Hct 38.4 % (36.0-45.0) 01/10/23 02:46 Plt Count 241 thou/uL (152-406) 01/10/23 02:46 Sodium 136 mEq/L (136-145) 01/10/23 02:46 Potassium 3.6 mEq/L (3.5-5.1) 01/10/23 02:46 BUN 8 mg/dL (7-18) 01/10/23 02:46 Creatinine 1.12 mg/dL (0.55-1.02) H 01/10/23 02:46 Glucose 171 mg/dL (74-106) H 01/10/23 02:46 Magnesium 2.4 mg/dL (1.6-2.4) 01/09/23 22:10 Home Medications: Albuterol Inhaler [Ventolin Inhaler*] 2 puff IH Q4H PRN 01/10/23 Albuterol Inhaler [Ventolin Inhaler*] 2 puff IH Q6H PRN #1 inhaler 01/10/23 Benzonatate [Tessalon Perle*] 100 mg PO TID PRN #21 cap 01/10/23 Levothyroxine Sodium 150 mcg PO DAILY 01/10/23 predniSONE [Prednisone*] 20 mg PO BID #10 tab 01/10/23 New Medications: predniSONE [Prednisone*] 20 mg PO BID #10 tab Benzonatate [Tessalon Perle*] 100 mg PO TID PRN #21 cap PRN Reason: Cough Albuterol Inhaler [Ventolin Inhaler*] 2 puff IH Q6H PRN #1 inhaler PRN Reason: Shortness Of Breath
[2023-01-10] MEDS: DULERA 200/5 (MOMETASONE/FORMOTEROL) INHALER IH SCH ×2 (12:16→20:45)
--- NOTE | 2023-01-10 15:27 | P.PN ---
Subjective Date of Service: 01/10/23 Chief Complaint: Asthma exacerbation Subjective: No new changes, Improving Physical Examination - Vital Signs Temperature: 97.8 F Blood Pressure: 132/65 Pulse: 94 Respirations: 20 Pulse Ox (%): 86 - Physical Exam General: Alert, Oriented x3 HEENT: Atraumatic, Normocephalic Neck: Supple Respiratory: Diminished Cardiovascular: Normal pulses, Regular rate/rhythm, Normal S1 S2 Gastrointestinal: Soft and benign Musculoskeletal: No swelling Neurological: Normal speech - Studies Laboratory Data (last 24 hrs) 01/09/23 01/09/23 22:10 22:10 WBC 9.60 Hgb 12.9 Hct 38.7 Plt Count 255 Sodium 138 Potassium 3.6 BUN 9 Creatinine 1.13 H Glucose 95 Magnesium 2.4 Assessment And Plan - Plan Asthma exacerbation Improved but still needing supplemental oxygen. we will continue duonebs and ICS. we will continue steroid therapy. we will continue to wean off oxygen as tolerated. DVT PPX: Lovenox Code status: Full Discharge Plan: Home in next 24 Hours
[2023-01-11 01:14] VITALS: O2SAT 94
[2023-01-11 03:22] LABS: Absolute Lymphocytes (CBC) 2.4 K/uL (0.7-4.9); Hematocrit 36.9 % (36.0-45.0); Lymphocytes % 13.8 % (15.3-44.8); MCV 91.3 fL (80-100); MPV 9.6 fL (7.6-11.3); Platelets 256 thou/uL (152-406); RBC Red Blood Cell Count 4.04 M/uL (3.86-4.86)
[2023-01-11 03:35] LABS: Potassium 3.7 mEq/L (3.5-5.1)
--- NOTE | 2023-01-11 07:33 | P.PN ---
Date of Service: 01/11/23 Subjective: ROS: 10 point ROS as noted above, otherwise negative Physical Exam: GEN: Alert, oriented, NAD HEENT: Normal conjunctiva, sclera anicteric CV: Regular rate and rhythm, no edema Pulm: Nonlabored respirations on room air ABD: Soft, nontender, nondistended MSK: No joint tenderness Integumentary: No rashes Neuro: Normal speech, normal affect vitals reviewed Problem List: VTE: Code: Dispo:
[2023-01-11] MEDS: predniSONE 20 MG TAB PO SCH (08:53)
[2023-01-11] MEDS: ENOXAPARIN 40 MG/0.4 ML SQ SCH (08:53)
[2023-01-11] MEDS: DULERA 200/5 (MOMETASONE/FORMOTEROL) INHALER IH SCH (08:54)
[2023-01-11 09:00] VITALS: BP 119/64; TEMP 97
[2023-01-11] MEDS ORDERED: POTASSIUM CL SA 10 MEQ TAB PO ONE (09:00)
--- NOTE | 2023-01-11 09:46 | P.CNS ---
Date of Consult: 01/11/23 Reason for Consult: Asthma exacerbation Chief Complaint: Asthma exacerbation History of Present Illness: And is 37 years of age poorly controlled asthma pulm medical problems cannot afford any medications admitted to the hospital with increasing shortness of breath chest congestion nocturnal sleep disturbance does not see any doctors also is hypothyroid history of COVID infection complicated with respiratory failure history of sleep apnea Polar disorder feeling a little better Allergies erythromycin base Allergy (Verified 06/23/21 08:58) Hives/Rash Penicillins Allergy (Verified 06/23/21 08:58) Hives/Rash Sulfa (Sulfonamide Antibiotics) Allergy (Verified 06/23/21 08:58) Hives/Rash sulfamethoxazole [From Bactrim] Allergy (Verified 06/23/21 08:58) Unknown trimethoprim [From Bactrim] Allergy (Verified 06/23/21 08:58) Unknown Home Medications: Albuterol Inhaler [Ventolin Inhaler*] 2 puff IH Q4H PRN 01/10/23 Albuterol Inhaler [Ventolin Inhaler*] 2 puff IH Q6H PRN #1 inhaler 01/10/23 Benzonatate [Tessalon Perle*] 100 mg PO TID PRN #21 cap 01/10/23 Levothyroxine Sodium 150 mcg PO DAILY 01/10/23 predniSONE [Prednisone*] 20 mg PO BID #10 tab 01/10/23 - Past Medical/Surgical History Diabetic: No -: hypothyroidism -: anxiety -: depression -: bipolar -: Asthma -: COVID pneumonia -: COVID pneumonia -: c section -: tubal ligation -: tonsillectomy -: Adenoidectomy -: Hernia repair,abdominal, needs another repair -: Appendectomy Psychosocial/ Personal History: 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 - Family History Father Medical History: Other (see notes) Notes: drug addict, ETOH abuse Mother Medical History: Heart disease, Hypertension, Lung disease, Diabetes, Stroke, Other (see notes) Notes: copd,chf - Social History Smoking Status: Current some day smoker Alcohol use: No CD- Drugs: No Caffeine use: Yes Place of Residence: Home Review of Systems General: Weakness ENT: Nose Discharge Respiratory: Shortness of Breath Physical Examination Temp Pulse Resp BP Pulse Ox 97 F 69 16 119/64 94 01/11/23 08:00 01/11/23 08:00 01/11/23 08:00 01/11/23 08:00 01/11/23 08:00 General: Alert, In no apparent distress, Oriented x3 Neck: Supple Respiratory: Clear to auscultation bilaterally, Friction rub Cardiovascular: No edema, Normal pulses, Normal S1 S2 Gastrointestinal: Normal bowel sounds, Soft and benign - Problems (1) Asthma exacerbation Current Visit: Yes Status: Acute Plan: Patient is 37 years of age with a history of poorly controlled asthma she does not take any bronchodilators at home cannot afford any medication patient patient is hypothyroid does not take any Synthroid sent history of complicated pneumonia with respiratory failure Recurrent COVID she of sleep apnea and does not use a CPAP machine chest x-ray is clear and is mildly elevated I suspect from the steroid ice patient to follow-up at the [facility] she will need a long-acting bronchodilator we will prescribe her Dulera from the hospital in addition to low-dose prednisone and hopefully we can arrange for her to have an outpatient CPAP thyroid function test more likely she is hypothyroid so has significant bipolar disorder
[2023-01-11] MEDS ORDERED: ALBUTEROL 2.5 MG/3 ML NEB SOL IH SCH (10:15)
--- NOTE | 2023-01-11 10:45 | P.DS ---
Admission Date: 01/09/23 Discharge Date: 01/11/23 Disposition: ROUTINE DISCHARGE Discharge Condition: GOOD Reason for Admission: Asthma exacerbation Consultations: Pulmonology - Dr. Lugo Brief History of Present Illness: 37 yo F, PMH: asthma, hypothyroidism Patient presents to the emergency department chief complaint of shortness of breath. She reports she was in the hospital approximately 1 to 2 weeks ago and given some oral steroids which she was unable to get filled for financial reasons, she reports continued to be worse since then especially the last couple days. She was evaluated in the emergency department her labs were unremarkable chest x-ray negative for acute findings, she was presenting with expiratory wheezing, still persistently wheezing after nebs, steroids. Also room air sats low 90s and as low as 88%. Hospital Course: Problem List: Asthma exacerbation Hypothyroidism Patient presented with shortness of breath. She was found to have an asthma exacerbation. Pulmonology - Dr. Lugo was consulted. Patient had improvement with steroids, nebulizers and supplemental oxygen. Patient was monitored overnight, feeling better, breathing comfortably on room air and deemed stable for discharge home. Per pulm, recommend following up for outpatient CPAP given h/o sleep apnea Medications: Prednisone 20 mg BID Albuterol Inhaler 2 puffs every 6 hours as needed Follow up: PCP 3-5 days Pulmonology in 1-2 week Physical Exam: GEN: Alert, oriented, NAD HEENT: Normal conjunctiva, sclera anicteric CV: Regular rate and rhythm, no edema Pulm: Nonlabored respirations on room air ABD: Soft, nontender, nondistended MSK: No joint tenderness Integumentary: No rashes Neuro: Normal speech, normal affect Vital Signs/Physical Exam: Temp Pulse Resp BP Pulse Ox 97 F 69 16 119/64 94 01/11/23 08:00 01/11/23 08:00 01/11/23 08:00 01/11/23 08:00 01/11/23 08:00 Laboratory Data at Discharge: WBC 17.50 thou/uL (4.3-10.9) H 01/11/23 02:38 Hgb 11.9 g/dL (12.0-15.0) L 01/11/23 02:38 Hct 36.9 % (36.0-45.0) 01/11/23 02:38 Plt Count 256 thou/uL (152-406) 01/11/23 02:38 Sodium 138 mEq/L (136-145) 01/11/23 02:38 Potassium 3.7 mEq/L (3.5-5.1) 01/11/23 02:38 BUN 12 mg/dL (7-18) 01/11/23 02:38 Creatinine 1.03 mg/dL (0.55-1.02) H 01/11/23 02:38 Glucose 165 mg/dL (74-106) H 01/11/23 02:38 Magnesium 2.4 mg/dL (1.6-2.4) 01/09/23 22:10 Home Medications: Albuterol Inhaler [Ventolin Inhaler*] 2 puff IH Q4H PRN 01/10/23 Albuterol Inhaler [Ventolin Inhaler*] 2 puff IH Q6H PRN #1 inhaler 01/10/23 Benzonatate [Tessalon Perle*] 100 mg PO TID PRN #21 cap 01/10/23 Levothyroxine Sodium 150 mcg PO DAILY 01/10/23 predniSONE [Prednisone*] 20 mg PO BID #10 tab 01/10/23 New Medications: predniSONE [Prednisone*] 20 mg PO BID #10 tab Benzonatate [Tessalon Perle*] 100 mg PO TID PRN #21 cap PRN Reason: Cough Albuterol Inhaler [Ventolin Inhaler*] 2 puff IH Q6H PRN #1 inhaler PRN Reason: Shortness Of Breath Physician Discharge Instructions: Patient presented with shortness of breath. She was found to have an asthma exacerbation. Pulmonology - Dr. Lugo was consulted. Patient had improvement with steroids, nebulizers and supplemental oxygen. Patient was feeling better, breathing comfortably on room air and deemed stable for discharge home. Recommend following up with pulmonology for possible setup of CPAP Medications: Prednisone Dulera Follow up: PCP 3-5 days Pulmonology in 1-2 week Time spent managing pt's care (in minutes): 45
--- NOTE | 2023-01-12 18:05 | EKG ---
Test Date: 2023-01-09 Test Time: 22:28:07 Header Set Up Operator: CM MEASUREMENT RESULTS: Intervals: Rate: 81 AK: 148 QRSD: 102 QT: 346 QTc: 401 [place]: P: 60 AK: 148 QRS: 78 T: -59 INTERPRETIVE STATEMENTS: Normal sinus rhythm Low voltage QRS Septal infarct, age undetermined Abnormal ECG Compared to ECG 12/21/2022 10:23:07 Myocardial infarct finding now present T-wave abnormality no longer present Electronically Signed On 01-12-23 17:58:52 CDT by Jeb Rodas
== END 2023-01-11 11:39 | disposition home or self-care (01) ==
LOC: ER 21:30 → 2ND 23:44
PROVIDERS: ADMIT Internal Medicine Nephrology; ATTEND Hospitalist
DX: J45.901 Unspecified asthma with (acute) exacerbation (principal); E03.9 Hypothyroidism, unspecified; Z91.141 Patient's other noncompliance with medication regimen due to financial hardship; Z86.16 Personal history of COVID-19; Z88.0 Allergy status to penicillin; Z88.2 Allergy status to sulfonamides; Z88.1 Allergy status to other antibiotic agents
CPT/HCPCS: 36415; 71045; 80048; 83735; 83880; 84439; 84443; 85025; 93005; 94640; 96372; 96374; 99285; G0378; J1650; J2930; J3535; J7512; J7613; J7644

== ENCOUNTER 2023-03-15 21:11 | Emergency (ER) | payer OTHER ==
--- OUTSIDE RECORDS SUMMARY | 2023-03-15 21:14 | XMS REPORT | Continuity of Care Document ---
:1985 Author Organization [facility] t Address [address] [place] [id number] Care Team Providers Name Role Phone Unavailable Unavailable Unavailable Problems This patient has no known problems. Allergies, Adverse Reactions, Alerts This patient has no known allergies or adverse reactions. Medications This patient has no known medications. Procedures This patient has no known procedures. Results This patient has no known results.
[2023-03-15 22:26] LABS: Absolute Lymphocytes (CBC) 2.7 K/uL (0.7-4.9); Hematocrit 34.7 % (36.0-45.0); Lymphocytes % 33.2 % (15.3-44.8); MCV 90.7 fL (80-100); MPV 8.1 fL (7.6-11.3); Platelets 257 thou/uL (152-406); RBC Red Blood Cell Count 3.82 M/uL (3.86-4.86)
[2023-03-15 22:36] LABS: ALT/SGPT 35 U/L (13-56); AST/SGOT 25 U/L (15-37); Albumin 3.8 g/dL (3.4-5.0); Alkaline Phosphatase 49 U/L (45-117); BUN Blood Urea Nitrogen 16 mg/dL (7-18); Bicarbonate 30 mEq/L (21-32); Bilirubin Total 0.5 mg/dL (0.2-1.0); Glomerular Filtration Rate 79 ml/min (=/>90); Glucose Level 98 mg/dL (74-106); Lipase 32 U/L (13-75); Magnesium 2.4 mg/dL (1.6-2.4); Potassium 3.8 mEq/L (3.5-5.1); Protein, Total 7.2 g/dL (6.4-8.2); Sodium Level 137 mEq/L (136-145); Troponin High Sensitivity 4.6 pg/mL (<58.9)
--- NOTE | 2023-03-15 22:36 | RAD REPORT ---
EXAM DESCRIPTION: RAD - Chest Single View - 03/15/2023 10:31 pm CLINICAL HISTORY: CHEST PAIN COMPARISON: Chest Single View dated 02/18/2023; Chest Single View dated 01/09/2023; Chest Single View dated 11/09/2022; Chest Single View dated 10/07/2022 FINDINGS: Lines: None. Lungs: No evidence of edema or pneumonia. Pleural: No significant pleural effusions or pneumothorax. Cardiac: The heart size is within normal limits. Mediastinum: Within normal limits. Bones: No acute fractures. Other: None IMPRESSION: No acute cardiopulmonary disease.
[2023-03-15 22:59] LABS: Bilirubin Direct < 0.1 mg/dL (0-0.2); Bilirubin Indirect, Calculated ND mg/dL (0.2-0.8)
[2023-03-15] MEDS ORDERED: ACETAMINOPHEN 500 MG TAB ONE (23:16)
--- NOTE | 2023-03-16 00:24 | EDPHYS ---
Physician Documentation [facility] Name: Rachael Knox Age: 38 yrs Sex: Female : 1985 Arrival Date: 03/15/2023 Time: 21:11 Bed 9 Private MD: ED Physician Kei Dover HPI: 03/15 21:53 This 38 yrs old Female presents to ER via Ambulatory with complaints of Chest ms3 Pain, Abdominal Pain. 21:53 38-year-old female with past medical history of anemia, anxiety, asthma, bipolar,, ms3 hypothyroidism, diabetes presents to the emergency department for chest pain that began 2 days prior to arrival. Patient endorses nausea. Patient denies vomiting, shortness of breath. Patient states the pain is located in her epigastric region, rated an 8/10, and does not radiate. Patient denies alleviating or inciting factors.. 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 - Social history:: Smoking status: Patient denies any tobacco usage or history of. ROS: 21:53 Constitutional: Negative for fever, and chills. Neck: Negative for injury, pain, and ms3 swelling, Respiratory: Negative for shortness of breath, cough, wheezing, and pleuritic chest pain, Abdomen/GI: Negative for abdominal pain, nausea, vomiting, diarrhea, and constipation, MS/Extremity: Negative for injury and deformity, 21:53 Skin: Negative for injury, rash, and discoloration, 21:53 Cardiovascular: Positive for chest pain, 21:53 All other systems are negative, Exam: 21:53 Constitutional: This is a well developed, well nourished patient who is awake, alert, ms3 and in no acute distress. Head/Face: Normocephalic, atraumatic. Neck: Trachea midline, no cervical lymphadenopathy. Supple, full range of motion without nuchal rigidity, or vertebral point tenderness. No Meningismus. Chest/axilla: Normal chest wall appearance and motion. Nontender with no deformity. Cardiovascular: Regular rate and rhythm with a normal S1 and S2. No gallops, murmurs, or rubs. Normal PMI, no JVD. No pulse deficits. Respiratory: Lungs have equal breath sounds bilaterally, clear to auscultation and percussion. No rales, rhonchi or wheezes noted. No increased work of breathing, no retractions or nasal flaring. Abdomen/GI: Soft, non-tender, with normal bowel sounds. No distension or tympany. No guarding or rebound. No evidence of tenderness throughout. Skin: Warm, dry with normal turgor. Normal color with no rashes, no lesions, and no evidence of cellulitis. MS/ Extremity: Pulses equal, no cyanosis. Neurovascular intact. Full, normal range of motion. 21:53 ECG was reviewed by the Attending Physician. Vital Signs: 10:45 BP 121 / 84; Pulse 82; Resp 16; Pulse Ox 96% ; cp4 21:33 BP 143 / 91; Pulse 84; Resp 17; Temp 98.4; Pulse Ox 100% ; Weight 151.95 kg; Pain 7/10; ap3 23:22 BP 102 / 60; Pulse 73; Resp 16; Pulse Ox 95% ; cp4 21:33 Pain Scale: Adult ap3 MDM: 21:51 Patient medically screened. ms3 03/16 00:30 Differential diagnosis: abnormal EKG, acute myocardial infarction, coronary artery ms3 disease. HEART Score: History: Slightly Suspicious (0), ECG: Normal (0), Age: < or = 45 years (0), Risk Factors: > or = 3 Risk factors for atherosclerotic disease (2), [Hypertension] [DM] [Obesity] Troponin: < or = 1 x Normal Limit (0), Total Score = 2. Data reviewed: vital signs, nurses notes, lab test result(s), EKG, radiologic studies, and as a result, I will discharge patient. Consideration of Admission/Observation Escalation of care including admission/observation considered. Heart score 2. Independent interpretation of the following test(s) in the Emergency Department EKG: See my EKG interpretation above X-Ray: My interpretation is Chest x-ray image reviewed by me does not reveal pulmonary edema, pneumonia, pneumothorax. Care significantly affected by the following chronic conditions: Diabetes, Hypertension, Obesity. Counseling: I had a detailed discussion with the patient and/or guardian regarding the historical points, exam findings, and any diagnostic results supporting the discharge/admit diagnosis, lab results, radiology results, the need for outpatient follow up, to return to the emergency department if symptoms worsen or persist or if there are any questions or concerns that arise at home. Special discussion: Based on the patient's history, exam, and Dx evaluation, there is no indication for emergent intervention or inpatient Tx. It is understood by the patient/guardian that if the Sx's persist or worsen they need to return immediately for re-evaluation. ED course: Discussed labs, EKG, chest x-ray with patient. Heart score 2, troponin negative, chest x-ray negative. Patient to follow-up with Dr. Cameron in 1 to 2 days. Patient understands and agrees with plan. All questions were answered. Return precautions discussed include worsening symptoms, or any other concerns. On reevaluation patient is alert and oriented x4, no apparent distress, nontoxic-appearing, ambulatory in the emergency department. 03/15 22:14 Order name: Basic Metabolic Panel; Complete Time: 00:11 EDMS 03/15 22:14 Order name: Liver (Hepatic) Function; Complete Time: 00:11 EDMS 03/15 22:14 Order name: Troponin High Sensitivity; Complete Time: 00:11 EDMS 03/15 22:14 Order name: Magnesium; Complete Time: 00:11 EDMS 03/15 22:14 Order name: Lipase; Complete Time: 00:11 EDMS 03/15 22:14 Order name: CBC with Automated Diff; Complete Time: 00:11 EDMS 03/15 22:18 Order name: Chest Single View; Complete Time: 00:11 EDMS 03/15 21:51 Order name: EKG; Complete Time: 06:05 ms3 03/15 21:51 Order name: Cardiac monitoring; Complete Time: 21:53 ms3 03/15 21:52 Order name: EKG - Nurse/Tech; Complete Time: 21:53 ms3 03/15 21:52 Order name: IV Saline Lock; Complete Time: 22:33 ms3 03/15 21:52 Order name: Labs collected and sent; Complete Time: 22:33 ms3 03/15 21:52 Order name: O2 Per Protocol; Complete Time: :53 ms3 03/15 21:52 Order name: O2 Sat Monitoring; Complete Time: 21:53 ms3 EC/22 21:53 Rate is 78 beats/min. Rhythm is regular. QRS [place] is Normal. ND interval is normal. QRS ms3 interval is normal. QT interval is normal. Clinical impression: NSR w/ Non-specific ST/T Changes. No change from previous ECG on February 18, 2023. Interpreted by me. Reviewed by me. Administered Medications: 23:07 Drug: Acetaminophen PO 1000 mg PO once Route: PO; cp4 03/16 00:42 Follow up: Response: No adverse reaction ap3 Disposition Summary: 03/16/23 00:23 Discharge Ordered Notes: Location: Home ms3 Condition: Stable ms3 Diagnosis - Chest pain, unspecified ms3 - Anemia, unspecified ms3 - Ventral hernia without obstruction or gangrene ms3 Followup: ms3 - With: Jeb Rodas MD - When: 1 - 2 days - Reason: Recheck today's complaints Discharge Instructions: - Discharge Summary Sheet ms3 - Anemia ms3 - Nonspecific Chest Pain, Adult ms3 - Abdominal Pain, Adult, [place] ms3 Forms: - Medication Reconciliation Form ms3 - Thank You Letter ms3 - Antibiotic Education ms3 - Prescription Opioid Use ms3 - Patient Portal Instructions ms3 - Leadership Thank You Letter ms3 Signatures: Dispatcher [employer] Jill Conley RN RN ap3 Kei Dover DO DO ms3 Angelita Tidwell cp4
--- NOTE | 2023-03-16 00:24 | ER ---
Nurse's Notes [facility] Name: Rachael Knox Age: 38 yrs Sex: Female : 1985 Arrival Date: 03/15/2023 Time: 21:11 Bed 9 Private MD: Diagnosis: Chest pain, unspecified;Anemia, unspecified;Ventral hernia without obstruction or gangrene Presentation: 03/15 21:33 Chief complaint: Patient states: she has been having chest pain for a few days, along ap3 with having "dizzy spells". Patient also reports pain where she had a previous hernia repaired in her abdomen. Coronavirus screen: At this time, the client does not indicate any symptoms associated with coronavirus-19. Ebola Screen: No symptoms or risks identified at this time. Initial Sepsis Screen: Does the patient meet any 2 criteria? No. Patient's initial sepsis screen is negative. Does the patient have a suspected source of infection? No. Patient's initial sepsis screen is negative. Risk Assessment: Do you want to hurt yourself or someone else? Patient reports no desire to harm self or others. Onset of symptoms is unknown. 21:33 Method Of Arrival: Ambulatory ap3 21:33 Acuity: DARSHAN 3 ap3 Triage Assessment: 21:36 General: Appears in no apparent distress. Behavior is calm, cooperative, appropriate ap3 for age. Pain: Complains of pain in chest and abdomen Pain began gradually. Neuro: Level of Consciousness is awake, alert, obeys commands, Oriented to person, place, time, situation. Cardiovascular: Patient's skin is warm and dry. Respiratory: Airway is patent Respiratory effort is even, unlabored, Respiratory pattern is regular, symmetrical. 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 - Social history:: Smoking status: Patient denies any tobacco usage or history of. Screenin:47 Abuse screen: Denies threats or abuse. Nutritional screening: No deficits noted. ap3 Tuberculosis screening: No symptoms or risk factors identified. 03/16 00:41 [facility] ED Fall Risk Assessment (Adult) History of falling in the last 3 months, ap3 including since admission No falls in past 3 months (0 pts). Assessment: 00:41 Pain: Pain does not radiate. ap3 Vital Signs: 03/15 10:45 BP 121 / 84; Pulse 82; Resp 16; Pulse Ox 96% ; cp4 21:33 BP 143 / 91; Pulse 84; Resp 17; Temp 98.4; Pulse Ox 100% ; Weight 151.95 kg; Pain 7/10; ap3 23:22 BP 102 / 60; Pulse 73; Resp 16; Pulse Ox 95% ; cp4 21:33 Pain Scale: Adult ap3 ED Course: 21:13 Patient arrived in ED. mr 21:18 Kei Dover DO is Attending Physician. ms3 21:35 Triage completed. ap3 21:37 Angelita Tidwell is Primary Nurse. cp4 21:47 Patient maintains SpO2 saturation greater than 95% on room air. ap3 21:47 Arm band placed on right wrist. ap3 21:47 Patient has correct armband on for positive identification. Bed in low position. Call ap3 light in reach. monitoring tech on. Pulse ox on. NIBP on. 22:17 Magnesium Sent. cp4 22:17 Lipase Sent. cp4 22:17 CBC with Automated Diff Sent. cp4 22:17 Basic Metabolic Panel Sent. cp4 22:17 Liver (Hepatic) Function Sent. cp4 22:17 Troponin High Sensitivity Sent. cp4 22:32 Chest Single View In Process Unspecified. EDMS 03/16 00:23 Jeb Rodas MD is Referral Physician. ms3 00:41 No provider procedures requiring assistance completed. IV discontinued, intact, ap3 bleeding controlled, No redness/swelling at site. Pressure dressing applied. 00:41 Provided Education on: discharge instructions. ap3 Administered Medications: 03/15 23:07 Drug: Acetaminophen PO 1000 mg PO once Route: PO; cp4 03/16 00:42 Follow up: Response: No adverse reaction ap3 Medication: 00:41 VIS not applicable for this client. ap3 Outcome: 00:23 Discharge ordered by MD. ms3 00:41 Discharged to home ambulatory, ap3 00:41 Condition: good 00:41 Discharge instructions given to patient, Instructed on discharge instructions, follow up and referral plans. Demonstrated understanding of instructions, follow-up care, 00:42 Patient left the ED. ap3 Signatures: Dispatcher [employer] EDMS Anat Rose, Warren Reg mr Jill Sheridan RN RN ap3 Kei Dover DO DO ms3 Angelita Tidwell cp4
--- NOTE | 2023-03-16 18:05 | EKG ---
Test Date: 2023-03-15 Test Time: 21:49:34 Braze Operator: KP MEASUREMENT RESULTS: Intervals: Rate: 78 CA: 148 QRSD: 92 QT: 438 QTc: 499 [place]: P: 52 CA: 148 QRS: 62 T: 67 INTERPRETIVE STATEMENTS: Normal sinus rhythm Low voltage QRS Prolonged QT Abnormal ECG Compared to ECG 02/18/2023 14:22:05 First degree AV block no longer present ST (T wave) deviation no longer present Electronically Signed On 03-16-23 18:04:46 CDT by Jeb Rodas
== END 2023-03-16 00:42 | disposition home or self-care (01) ==
LOC: ER 21:11
DX: R07.89 Other chest pain (principal); D64.9 Anemia, unspecified; K43.9 Ventral hernia without obstruction or gangrene; I10 Essential (primary) hypertension; Z88.0 Allergy status to penicillin; Z88.1 Allergy status to other antibiotic agents; Z88.2 Allergy status to sulfonamides; Z88.3 Allergy status to other anti-infective agents
CPT/HCPCS: 36415; 71045; 80048; 80076; 83690; 83735; 84484; 85025; 93005

== ENCOUNTER → 2023-05-30 | Emergency (ER) | payer SELFPAY ==
[~2023-05-30] MED LIST: ALBUTEROL 2.5 MG/3 ML NEB SOL ONE; IPRATROPIUM BROM 0.5MG/2.5ML ONE; LORAZEPAM 1 MG TABLET ONE
--- OUTSIDE RECORDS SUMMARY | 2023-05-30 21:35 | XMS REPORT | Continuity of Care Document ---
Author Name Unknown Address [address] [place] [address] [employer] Address [address] [place] [address] Care Team Providers Care Unpaid Intern Name Role Phone Unavailable Unavailable Unavailable
[2023-05-30 22:13] LABS: Absolute Lymphocytes (CBC) 2.1 K/uL (0.7-4.9); Hematocrit 37.2 % (36.0-45.0); Lymphocytes % 23.7 % (15.3-44.8); MCV 91.7 fL (80-100); MPV 8.7 fL (7.6-11.3); Platelets 265 thou/uL (152-406); RBC Red Blood Cell Count 4.06 M/uL (3.86-4.86)
--- NOTE | 2023-05-30 22:33 | RAD REPORT ---
EXAM DESCRIPTION: RAD - Chest Single View - 05/30/2023 10:20 pm CLINICAL HISTORY: DYSPNEA Chest pain. COMPARISON: Chest Single View dated 03/15/2023; Chest Single View dated 02/18/2023; Chest Single View dated 01/09/2023; Chest Single View dated 11/09/2022 FINDINGS: Portable technique limits examination quality. The lungs are grossly clear. The heart is normal in size. No displaced fractures. IMPRESSION: No acute intrathoracic process suspected.
[2023-05-30 22:43] LABS: ALT/SGPT 33 U/L (13-56); Alkaline Phosphatase 45 U/L (45-117); BUN Blood Urea Nitrogen 11 mg/dL (7-18); Bicarbonate 28 mEq/L (21-32); Bilirubin Total 0.4 mg/dL (0.2-1.0); Glomerular Filtration Rate 55 ml/min (=/>90); Glucose Level 177 mg/dL (74-106); Protein, Total 8.6 g/dL (6.4-8.2); Sodium Level 135 mEq/L (136-145); Troponin High Sensitivity 3.7 pg/mL (<58.9)
[2023-05-30 22:46] LABS: AST/SGOT 46 U/L (15-37); Bilirubin Direct < 0.1 mg/dL (0-0.2); Bilirubin Indirect, Calculated ND mg/dL (0.2-0.8); Magnesium 2.3 mg/dL (1.6-2.4); NT PRO-BNP < 5 pg/mL (<125); Potassium 4.7 mEq/L (3.5-5.1)
--- NOTE | 2023-05-30 23:28 | EDPHYS ---
Physician Documentation [facility] Name: Rachael Knox Age: 38 yrs Sex: Female : 1985 Arrival Date: 05/30/2023 Time: 21:32 Bed 8 Private MD: ED Physician Mil Lance HPI: 05/30 22:38 This 38 yrs old Female presents to ER via Ambulatory with complaints of rt Shortness Of Breath. 22:38 Patient presents to the ED with intermittent shortness of breath for the past 2 days. rt Patient does have a history of asthma also states that she has had multiple stressors recently, unsure if her shortness of breath is due to anxiety versus her asthma. She did take an inhaler treatment as well as 20 mg of prednisone with no relief. She denies other acute complaints at this time, symptoms are moderate in severity, no other aggravating or alleviating factors.. Historical: - Allergies: 21:51 Bactrim; jb4 21:51 mycins; jb4 21:51 PENICILLINS; jb4 21:51 Sulfa (Sulfonamide Antibiotics); jb4 - PMHx: 21:51 Anxiety; Asthma; Bipolar disorder; Blood transfusions; cardiac arrest; Hypertension; jb4 Hypothyroidism; NIDDM; Anemia; - PSHx: 21:51 Appendectomy; section; hernia repair; Tonsillectomy; tubal ligation; jb4 - Immunization history:: Adult Immunizations up to date. - Social history:: Smoking status: Patient denies any tobacco usage or history of. - Family history:: not pertinent. ROS: 22:38 Constitutional: Negative for fever, chills, and weight loss, Cardiovascular: Negative rt for chest pain, palpitations, and edema, Abdomen/GI: Negative for abdominal pain, nausea, vomiting, diarrhea, and constipation, MS/Extremity: Negative for injury and deformity, Skin: Negative for injury, rash, and discoloration, Neuro: Negative for headache, weakness, numbness, tingling, and seizure, 22:38 Respiratory: Positive for cough, shortness of breath, 22:38 Psych: Positive for anxiety, Negative for suicidal ideation, Exam: 22:38 Constitutional: This is a well developed, well nourished patient who is awake, alert, rt and in no acute distress. Head/Face: Normocephalic, atraumatic. Chest/axilla: Normal chest wall appearance and motion. Nontender with no deformity. No lesions are appreciated. Cardiovascular: Regular rate and rhythm with a normal S1 and S2. No gallops, murmurs, or rubs. Normal PMI, no JVD. No pulse deficits. Abdomen/GI: Soft, non-tender, with normal bowel sounds. No distension or tympany. No guarding or rebound. No evidence of tenderness throughout. Skin: Warm, dry with normal turgor. Normal color with no rashes, no lesions, and no evidence of cellulitis. MS/ Extremity: Pulses equal, no cyanosis. Neurovascular intact. Full, normal range of motion. Neuro: Awake and alert, GCS 15, oriented to person, place, time, and situation. Cranial nerves II-XII grossly intact. Motor strength 5/5 in all extremities. Sensory grossly intact. Cerebellar exam normal. Normal gait. 22:38 ECG was reviewed by the Attending Physician. 22:38 Respiratory: Faint wheezes heard on all lung chakraborty, no respiratory distress, Vital Signs: 21:48 BP 154 / 97; Pulse 95; Resp 18; Temp 97.6; Pulse Ox 93% on R/A; Weight 161.93 kg (R); jb4 Height 5 ft. 5 in. ; 22:12 BP 120 / 84; Pulse 88; Resp 18; Pulse Ox 98% on Nebulizer Mask; km8 22:30 BP 128 / 85; Pulse 89; Resp 18; Pulse Ox 91% on R/A; km8 23:00 BP 127 / 81; Pulse 87; Resp 16; Pulse Ox 95% ; km8 21:48 Body Mass Index 59.41 (161.93 kg, 165.1 cm) jb4 Zach Coma Score: 22:12 Eye Response: spontaneous(4). Motor Response: obeys commands(6). Verbal Response: km8 oriented(5). Total: 15. MDM: 21:48 Patient medically screened. rt 23:34 Differential diagnosis: Anxiety, asthma, pneumonia, pneumothorax. Data reviewed: vital rt signs, nurses notes, lab test result(s), EKG, radiologic studies. I considered the following discharge prescriptions or medication management in the emergency department Medications were administered in the Emergency Department. See MAR. Independent interpretation of the following test(s) in the Emergency Department X-Ray: My interpretation is No pneumonia seen on interpretation of x-ray images. Test considered but Not performed: CT: Low suspicion for PE, CT angiogram not indicated. Care significantly affected by the following chronic conditions: Asthma. Counseling: I had a detailed discussion with the patient and/or guardian regarding the historical points, exam findings, and any diagnostic results supporting the discharge/admit diagnosis, lab results, radiology results, the need for outpatient follow up. Response to treatment: the patient's symptoms have markedly improved after treatment. ED course: Reports bilateral ear drainage, no otitis media, bilateral otitis externa is present. Will treat with topical antibiotic. 05/30 21:53 Order name: Basic Metabolic Panel; Complete Time: 22:47 rt 05/30 21:53 Order name: CBC with Diff; Complete Time: 22:36 rt 05/30 21:53 Order name: LFT's; Complete Time: 22:47 rt 05/30 21:53 Order name: Magnesium; Complete Time: 22:47 rt 05/30 21:53 Order name: NT PRO-BNP; Complete Time: 22:47 rt 05/30 21:53 Order name: Troponin HS; Complete Time: 22:47 rt 05/30 21:53 Order name: XRAY Chest (1 view); Complete Time: 22:36 rt 05/30 21:53 Order name: EKG; Complete Time: 21:54 rt 05/30 21:53 Order name: Cardiac monitoring; Complete Time: 22:12 rt 05/30 21:53 Order name: EKG - Nurse/Tech; Complete Time: 22:12 rt 05/30 21:53 Order name: IV Saline Lock; Complete Time: 22:02 rt 05/30 21:53 Order name: Labs collected and sent; Complete Time: 22:02 rt 05/30 21:53 Order name: O2 Per Protocol; Complete Time: 22:12 rt 05/30 21:53 Order name: O2 Sat Monitoring; Complete Time: 22:12 rt EC:38 Rate is 88 beats/min. Rhythm is regular, Normal Sinus Rhythm with No ectopy. QRS [place] rt is Normal. LA interval is normal. QRS interval is normal. QT interval is normal. No Q waves. T waves are Normal. No ST changes noted. Administered Medications: 22:12 Drug: DuoNeb Nebulize (3:1) (2.5 mg - 0.5 mg) 3 ml Nebulizer once Route: Nebulizer; km8 23:37 Follow up: Response: No adverse reaction km8 22:12 Drug: LORazepam PO 1 mg PO once Route: PO; km8 23:37 Follow up: Response: No adverse reaction km8 Disposition Summary: 05/30/23 23:27 Discharge Ordered Notes: Location: Home rt Problem: new rt Symptoms: have improved rt Condition: Stable rt Diagnosis - Unspecified asthma, uncomplicated rt - Anxiety disorder, unspecified rt - Other infective otitis externa, unspecified ear rt Followup: rt - With: Private Physician - When: 2 - 3 days - Reason: Discharge Instructions: - Discharge Summary Sheet rt - Asthma, Adult rt - Otitis Externa, [id number] rt Forms: - Medication Reconciliation Form rt - Thank You Letter rt - Antibiotic Education rt - Prescription Opioid Use rt - Patient Portal Instructions rt - Leadership Thank You Letter rt Prescriptions: - albuterol sulfate 90 mcg/actuation Inhalation HFA Aerosol Inhaler - inhale 8 puff INHALATION route every 3 hours as needed for shortness of breath rt or wheezing; 2 Each; Refills: 0, Product Selection Permitted - ofloxacin 0.3 % Otic drops - instill 5 drop OTIC route every 24 hours disp qs for 7 days; 1 Each; Refills: rt 0, Product Selection Permitted - Hydroxyzine HCl 25 mg Oral tablet - take 1 tablet ORAL route every 6 hours As needed; 18 tablet; Refills: 0, rt Product Selection Permitted - Prednisone 20 mg Oral Tablet - take 2 tablets ORAL route once daily for 5 days; 10 tablet; Refills: 0, Product rt Selection Permitted Signatures: Dispatcher [employer] Fredrick Werner, RN RN jb4 Mil Lance MD MD rt Rae Hawkins RN RN km8
--- NOTE | 2023-05-30 23:28 | ER ---
Nurse's Notes [facility] Name: Rachael Knox Age: 38 yrs Sex: Female : 1985 Arrival Date: 05/30/2023 Time: 21:32 Bed 8 Private MD: Diagnosis: Unspecified asthma, uncomplicated;Anxiety disorder, unspecified;Other infective otitis externa, unspecified ear Presentation: 05/30 21:48 Chief complaint: Patient states: I have been having shortness of breath on and off and jb4 anxiety for the past 2 days. My uncles recently and my mother had surgery on Thursday. I feel off. I am not sure if its my anxiety or because I can't breathe. Coronavirus screen: At this time, the client does not indicate any symptoms associated with coronavirus-19. Ebola Screen: No symptoms or risks identified at this time. Initial Sepsis Screen: Does the patient meet any 2 criteria? No. Patient's initial sepsis screen is negative. Does the patient have a suspected source of infection? No. Patient's initial sepsis screen is negative. Risk Assessment: Do you want to hurt yourself or someone else? Patient reports no desire to harm self or others. Onset of symptoms was May 30, 2023. Transition of care: patient was not received from another setting of care. 21:48 Method Of Arrival: Ambulatory jb4 21:48 Acuity: DARSHAN 3 jb4 Historical: - Allergies: 21:51 Bactrim; jb4 21:51 mycins; jb4 21:51 PENICILLINS; jb4 21:51 Sulfa (Sulfonamide Antibiotics); jb4 - PMHx: 21:51 Anxiety; Asthma; Bipolar disorder; Blood transfusions; cardiac arrest; Hypertension; jb4 Hypothyroidism; NIDDM; Anemia; - PSHx: 21:51 Appendectomy; section; hernia repair; Tonsillectomy; tubal ligation; jb4 - Immunization history:: Adult Immunizations up to date. - Social history:: Smoking status: Patient denies any tobacco usage or history of. - Family history:: not pertinent. Screenin:12 [facility] ED Fall Risk Assessment (Adult) History of falling in the last 3 months, km8 including since admission No falls in past 3 months (0 pts) Confusion or Disorientation No (0 pts) Intoxicated or Sedated No (0 pts) Impaired Gait No (0 pts) Mobility Assist Device Used No (0 pt) Altered Elimination No (0 pt) Score/Fall Risk Level 0 - 2 = Low Risk Oriented to surroundings, Maintained a safe environment, Educated pt \\T\\ family on fall prevention, incl call for assistance when getting out of bed, Assessed \\T\\ reinforced patient's understanding of fall precautions. Abuse screen: Denies threats or abuse. Denies injuries from another. Nutritional screening: No deficits noted. Tuberculosis screening: No symptoms or risk factors identified. Assessment: 22:12 General: Appears in no apparent distress. comfortable, Behavior is calm, cooperative, km8 appropriate for age. Pain: Denies pain. Neuro: Level of Consciousness is awake, alert, obeys commands, Oriented to person, place, time, situation. Cardiovascular: Reports shortness of breath, "chest discomfort, not pain" Rhythm is sinus rhythm Chest pain is described as vague, quality is "discomfort" is located in anterior began 3 days. Respiratory: Reports shortness of breath at rest Airway is patent Respiratory effort is even, labored, Respiratory pattern is regular, symmetrical, Breath sounds with wheezes bilaterally. GI: No signs and/or symptoms were reported involving the gastrointestinal system. : No signs and/or symptoms were reported regarding the genitourinary system. EENT: No signs and/or symptoms were reported regarding the EENT system. Derm: No signs and/or symptoms reported regarding the dermatologic system. Skin is intact, is healthy with good turgor, Skin is dry, Skin is pink, warm \\T\\ dry. normal, Skin temperature is warm. Musculoskeletal: No signs and/or symptoms reported regarding the musculoskeletal system. Circulation, motion, and sensation intact. Range of motion: intact in all extremities. 23:27 Reassessment: Patient appears in no apparent distress at this time. No changes from km8 previously documented assessment. Patient and/or family updated on plan of care and expected duration. Pain level reassessed. Patient is alert, oriented x 3, equal unlabored respirations, skin warm/dry/pink. Vital Signs: 21:48 BP 154 / 97; Pulse 95; Resp 18; Temp 97.6; Pulse Ox 93% on R/A; Weight 161.93 kg (R); jb4 Height 5 ft. 5 in. ; 22:12 BP 120 / 84; Pulse 88; Resp 18; Pulse Ox 98% on Nebulizer Mask; km8 22:30 BP 128 / 85; Pulse 89; Resp 18; Pulse Ox 91% on R/A; km8 23:00 BP 127 / 81; Pulse 87; Resp 16; Pulse Ox 95% ; km8 21:48 Body Mass Index 59.41 (161.93 kg, 165.1 cm) jb4 Zach Coma Score: 22:12 Eye Response: spontaneous(4). Motor Response: obeys commands(6). Verbal Response: km8 oriented(5). Total: 15. ED Course: 21:34 Patient arrived in ED. jj6 21:35 Mil Lance MD is Attending Physician. rt 21:51 Triage completed. jb4 21:51 Arm band placed on right wrist. jb4 22:02 Troponin HS Sent. oe 22:02 NT PRO-BNP Sent. oe 22:02 Magnesium Sent. oe 22:02 LFT's Sent. oe 22:02 CBC with Diff Sent. oe 22:02 Basic Metabolic Panel Sent. oe 22:02 Inserted saline lock: 20 gauge in right antecubital area, using aseptic technique. oe Blood collected. 22:12 Patient has correct armband on for positive identification. Bed in low position. Call km8 light in reach. Side rails up X 1. hotel operations manager on. Pulse ox on. NIBP on. Door closed. Noise minimized. Lights dimmed. Warm blanket given. 22:12 No provider procedures requiring assistance completed. km8 22:22 XRAY Chest (1 view) In Process Unspecified. EDMS 23:36 Provided Education on: d/c teaching. km8 23:36 IV discontinued, intact, bleeding controlled, No redness/swelling at site. Pressure km8 dressing applied. Administered Medications: 22:12 Drug: DuoNeb Nebulize (3:1) (2.5 mg - 0.5 mg) 3 ml Nebulizer once Route: Nebulizer; km8 23:37 Follow up: Response: No adverse reaction km8 22:12 Drug: LORazepam PO 1 mg PO once Route: PO; km8 23:37 Follow up: Response: No adverse reaction km8 Medication: 22:12 VIS not applicable for this client. km8 Outcome: 23:27 Discharge ordered by . rt 23:36 Discharged to home ambulatory, km8 23:36 Condition: good 23:36 Discharge instructions given to patient, Instructed on discharge instructions, follow up and referral plans. medication usage, Demonstrated understanding of instructions, follow-up care, medications, Prescriptions given X 4, 23:37 Patient left the ED. km8 Signatures: Dispatcher [employer] EDMS Fredrick Galicia, RN RN jb4 Qasim Marin Jennifer jj6 Mil Lance MD MD rt Marx, Katie RN RN km8
[2023-05-31 03:13] VITALS: TEMP 97.6
[2023-05-31 03:30] VITALS: BP 127/81; O2SAT 95
--- NOTE | 2023-06-01 12:24 | EKG ---
Test Date: 2023-05-30 Test Time: 22:13:06 Customer Operations Intern: DAINA MEASUREMENT RESULTS: Intervals: Rate: 72 OR: 162 QRSD: 90 QT: 394 QTc: 431 [place]: P: 64 OR: 162 QRS: 95 T: 64 INTERPRETIVE STATEMENTS: Normal sinus rhythm Normal ECG Compared to ECG 05/30/2023 22:04:32 No significant changes Electronically Signed On 06-01-23 12:20:10 [employer] by Jeb Rodas
--- NOTE | 2023-06-01 12:25 | EKG ---
Test Date: 2023-05-30 Test Time: 22:04:32 Lpn Or Medical Assistant: DAINA MEASUREMENT RESULTS: Intervals: Rate: 88 IA: 154 QRSD: 96 QT: 330 QTc: 399 [place]: P: 55 IA: 154 QRS: 73 T: 213 INTERPRETIVE STATEMENTS: Normal sinus rhythm Low voltage QRS Borderline ECG Compared to ECG 03/15/2023 21:49:34 Prolonged QT interval no longer present Electronically Signed On 06-01-23 12:20:18 SHANK BREAKER by Jeb Rodas
== END ==
LOC: ER 21:32
DX: J45.909 Unspecified asthma, uncomplicated (principal); F41.9 Anxiety disorder, unspecified; H60.399 Other infective otitis externa, unspecified ear
CPT/HCPCS: 36415; 71045; 80048; 80076; 83735; 83880; 84484; 85025; 93005; 94640; 99285; J7613; J7644

== ENCOUNTER 2023-07-29 09:09 | Inpatient (IN) | payer SELFPAY ==
--- OUTSIDE RECORDS SUMMARY | 2023-07-29 09:12 | XMS REPORT | Continuity of Care Document ---
Author Name Unknown Address [address] [place] [address] [employer] Address [address] [place] [address] Care Team Providers Care Last Waxer Name Role Phone Unavailable Unavailable Unavailable
[2023-07-29] MEDS ORDERED: NA CHLORIDE 0.9% 500 ML ONE (09:55)
[2023-07-29] MEDS ORDERED: LEVALBUTEROL 1.25 MG/3 ML NEB ONE (09:55)
[2023-07-29 10:02] LABS: Absolute Basophils 0.1 K/uL (0-0.5); Absolute Lymphocytes (CBC) 2.9 K/uL (0.7-4.9); Basophils % 1.1 % (0-1.3); Lymphocytes % 39.9 % (15.3-44.8); MCV 92.4 fL (80-100); MPV 8.2 fL (7.6-11.3); Platelets 284 thou/uL (152-406); RBC Red Blood Cell Count 3.58 M/uL (3.86-4.86)
[2023-07-29 10:06] LABS: Protime INR 0.97
[2023-07-29 10:09] LABS: SARS-CoV-2 Antigen Rapid Res Negative (Negative)
[2023-07-29 10:23] LABS: Albumin 4.2 g/dL (3.4-5.0); Albumin/Globulin Ratio 1.1 (1.1-1.8); Anion Gap 7.4 mEq/L (5.0-15.0); Bilirubin Total 0.4 mg/dL (0.2-1.0); Magnesium 2.6 mg/dL (1.6-2.4); Potassium 3.4 mEq/L (3.5-5.1); Protein, Total 8.1 g/dL (6.4-8.2); Troponin High Sensitivity 4.8 pg/mL (<58.9)
--- NOTE | 2023-07-29 10:25 | RAD REPORT ---
EXAM DESCRIPTION: RADChest Single View07/29/2023 10:07 am CLINICAL HISTORY: DYSPNEA COMPARISON: Chest Single View dated 05/30/2023; Chest Single View dated 03/15/2023; Chest Single View dated 02/18/2023; Chest Single View dated 01/09/2023 TECHNIQUE: Portable AP view of the chest. FINDINGS: The lungs are clear, apart from stable right basilar streaky atelectasis. No pneumothorax or effusion. The cardiomediastinal contours are unremarkable. IMPRESSION: No acute cardiopulmonary process.
[2023-07-29] MEDS ORDERED: DIAZEPAM 2 MG TABLET ONE (10:55)
--- NOTE | 2023-07-29 12:34 | RAD REPORT ---
EXAM DESCRIPTION: CT - Chest For Pe Angio - 07/29/2023 11:47 am CLINICAL HISTORY: DYSPNEA COMPARISON: Chest For Pe Angio dated 07/05/2021; Chest For Pe Angio dated 04/06/2020 TECHNIQUE: Thin axial CT images of the chest were obtained following administration of 100 mL Isovue 370 IV contrast. Multiplanar reconstructions, and maximum intensity projection reconstructions were generated and reviewed. Exam utilizes a protocol for optimal evaluation of pulmonary arterial tree. All CT scans are performed using dose optimization technique as appropriate and may include automated exposure control or mA/KV adjustment according to patient size. FINDINGS: Pulmonary arteries are normal. No emboli or other suspicious finding. No acute or signific ant aorta findings. Decreased inspiratory effort limits evaluation. Subsegmental atelectatic changes most notable in the right middle lobe. No mass or other infiltrate in the lung parenchyma. No pleural thickening or pleur al effusion. No pneumothorax. No abnormal mediastinal or hilar masses or lymphadenopathy seen. No chest wall mass or abnormal axill iary lymphadenopathy. IMPRESSION: No evidence of acute central pulmonary emboli. Negative CT scan of the chest for other significant findings.
--- NOTE | 2023-07-29 12:47 | EDPHYS ---
Physician Documentation [facility] Name: Rachael Knox Age: 38 yrs Sex: Female : 1985 Arrival Date: 07/29/2023 Time: 09:09 Bed 20 Private MD: ED Physician Junito Sutton HPI: 07/28 09:44 This 38 yrs old Female presents to ER via EMS with complaints of Shortness Of rn Breath. 09:44 The patient has shortness of breath at rest, with light activity. Onset: The rn symptoms/episode began/occurred last night. Duration: The symptoms are intermittent. The patient's shortness of breath is aggravated by light activity, is alleviated by application of supplemental oxygen. Severity of symptoms: At their worst the symptoms were mild in the emergency department the symptoms are unchanged. The patient has experienced similar episodes in the past. The patient has not recently seen a physician. Patient reports shortness of breath and "not feeling well "since last night. Denies any fever. Denies productive cough. Does report shortness of breath. Worse with exertion. O2 was mid 80s for EMS and improved with 3 L oxygen to 96%. Patient denies any chest pain or new abdominal pain. No headache. No focal neurological deficit. No recent sick contacts.. 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 - Social history:: Smoking status: Patient denies any tobacco usage or history of. - Family history:: not pertinent. - Hospitalizations: : No recent hospitalization is reported. ROS: 09:44 Constitutional: Negative for fever, chills, and weight loss, Eyes: Negative for injury, rn pain, redness, and discharge, ENT: Negative for injury, pain, and discharge, Neck: Negative for injury, pain, and swelling, Cardiovascular: Negative for chest pain, palpitations, and edema, Respiratory: Negative for wheezing, and pleuritic chest pain Abdomen/GI: Negative for abdominal pain, nausea, vomiting, diarrhea, and constipation, MS/Extremity: Negative for injury and deformity, Skin: Negative for injury, rash, and discoloration, Neuro: Negative for headache, weakness, numbness, tingling, and seizure, Exam: 09:44 Constitutional: This is a well developed, well nourished patient who is awake, alert, rn and in no acute distress. Tearful and seems anxious Head/Face: Normocephalic, atraumatic. ENT: Dry mucous membranes, cracked lips, no stridor Cardiovascular: Regular rate and rhythm. No pulse deficits. Respiratory: Mild tachypnea, diminished breath sounds at bases. Faint wheezing noted Abdomen/GI: Soft, non-tender MS/ Extremity: Pulses equal, no cyanosis. Neuro: Awake and alert, GCS 15 Vital Signs: 09:15 BP 147 / 84; Pulse 81; Resp 24; Temp 98.4(O); Pulse Ox 85% on R/A; Weight 165.56 kg; db Height 5 ft. 5 in. ; 11:00 BP 146 / 99; Pulse 77; Resp 14; Pulse Ox 99% on 3 lpm NC; me1 12:00 BP 134 / 83; Pulse 67; Resp 12; Pulse Ox 100% on R/A; me1 13:06 BP 122 / 77; Pulse 67; Resp 12; Pulse Ox 99% on 3 lpm NC; me1 14:00 BP 115 / 74; Pulse 61; Resp 12; Pulse Ox 98% on 3 lpm NC; me1 15:15 BP 142 / 84; Pulse 67; Resp 10; Pulse Ox 100% on 3 lpm NC; me1 16:09 BP 130 / 67; Pulse 76; Resp 16; Pulse Ox 97% on 3 lpm NC; me1 09:15 Body Mass Index 60.74 (165.56 kg, 165.1 cm) db 09:15 STARTED ON NC [address] SUTTON AT BEDSIDE db MDM: 09:17 Patient medically screened. rn 12:43 Differential diagnosis: Anemia CHF exacerbation, Myocardial Infarction pneumonia, rn Pneumothorax pulmonary edema, Pulmonary Embolism. Data reviewed: vital signs, nurses notes, lab test result(s), EKG, radiologic studies, CT scan, plain films, and as a result, I will admit patient. Consideration of Admission/Observation Patient was admitted/placed on observation. Escalation of care including admission/observation considered. Counseling: I had a detailed discussion with the patient and/or guardian regarding the historical points, exam findings, and any diagnostic results supporting the discharge/admit diagnosis, lab results, radiology results, the need for further work-up and treatment in the hospital. Response to treatment: the patient's symptoms have mildly improved after treatment, and as a result, I will admit patient. ED course: Patient without improvement of symptoms. Still on oxygen. CT PE protocol negative. Troponin negative. Will admit to hospitalist service given still has oxygen requirement and unclear etiology of her symptoms.. 07/28 09:27 Order name: Blood Culture Adult (2) rn 07/28 09:27 Order name: CBC with Diff; Complete Time: 10:45 rn 07/28 09:27 Order name: Magnesium; Complete Time: 10:45 rn 07/28 09:27 Order name: NT PRO-BNP; Complete Time: 10:45 rn 07/28 09:27 Order name: PT-INR; Complete Time: 10:19 rn 07/28 09:27 Order name: Ptt, Activated; Complete Time: 10:19 rn 07/28 09:27 Order name: Troponin HS; Complete Time: 10:45 rn 07/28 09:27 Order name: SARS RAPID; Complete Time: 10:19 rn 07/28 09:27 Order name: Flu; Complete Time: 10:19 rn 07/28 09:27 Order name: CMP; Complete Time: 10:45 rn 07/28 09:27 Order name: Lactate w/ 2H reflex if indic.; Complete Time: 10:45 rn 07/28 16:56 Order name: Urinalysis w/ reflexes EDDC 07/28 09:27 Order name: XRAY CXR (1 view); Complete Time: 10:45 rn 07/28 11:11 Order name: CT Chest For PE Angio; Complete Time: 12:37 rn 07/28 09:27 Order name: EKG; Complete Time: 09:28 rn 07/28 12:59 Order name: CONS Physician Consult EDDC 07/28 09:27 Order name: Cardiac monitoring; Complete Time: 09:56 rn 07/28 09:27 Order name: EKG - Nurse/Tech; Complete Time: 09:56 rn 07/28 09:27 Order name: IV Saline Lock; Complete Time: 09:56 rn 07/28 09:27 Order name: Labs collected and sent; Complete Time: 09:56 rn 07/28 09:27 Order name: O2 Per Protocol; Complete Time: 09:56 rn 07/28 09:27 Order name: O2 Sat Monitoring; Complete Time: 09:56 rn 07/28 09:27 Order name: Accucheck; Complete Time: 10:19 rn 07/28 09:27 Order name: IV Saline Lock - Large Bore; Complete Time: 09:56 rn 07/28 09:27 Order name: Vital Signs; Complete Time: 09:56 rn Administered Medications: 10:00 Drug: Levalbuterol Inhalation 1.25 mg Inhalation once Route: Inhalation; db 10:54 Follow up: Response: No adverse reaction; Wheezing diminished me1 10:00 Drug: NS 0.9% IV 500 ml IV at bolus once Route: IV; Rate: bolus; Site: right db antecubital; 12:35 Follow up: Response: No adverse reaction; IV Status: Completed infusion; IV Intake: me1 500ml 10:59 Drug: Diazepam PO 2 mg PO once Route: PO; me1 11:54 Follow up: Response: No adverse reaction; Anxiety decreased me1 Disposition Summary: 07/29/23 12:46 Hospitalization Ordered Notes: Hospitalization Status: Observation rn Provider: Graeme Joy rn Condition: Stable rn Problem: new rn Symptoms: have improved rn Bed/Room Type: Standard rn Location: Telemetry/MedSurg (observation)(07/29/23 16:39) bd Room Assignment: 222(07/29/23 16:39) bd Diagnosis - Dyspnea, unspecified rn - Hypoxemia rn Forms: - Medication Reconciliation Form rn - SBAR form rn - Leadership Thank You Letter rn Signatures: Dispatcher [employer] EDLillian Hurt Roman, MD MD rn Bradberry, Kelly, RN RN kb3 Nicole Carrillo, RN RN db Sendy Cabello, RN RN me1 Corrections: (The following items were deleted from the chart) 13:52 12:46 Telemetry/MedSurg (observation) rn kb3 13:52 12:46 rn kb3 16:39 13:52 [facility] ER HOLD kb3 bd 16:39 13:52 ERHOLD- kb3 bd
--- NOTE | 2023-07-29 12:47 | ER ---
Nurse's Notes [facility] Name: Rachael Knox Age: 38 yrs Sex: Female : 1985 Arrival Date: 07/29/2023 Time: 09:09 Bed 20 Private MD: Diagnosis: Dyspnea, unspecified;Hypoxemia Presentation: 07/28 09:15 Chief complaint: EMS states: SOB 93% RA, DUONEB PROVIDED. PT COMPLAINS OF SOB STARTED db YESTERDAY. UPON ARRIVAL TO ED 85% RA AND SOB WITH TALKING AND AMBULATION. Coronavirus screen: Client denies travel out of the [place] in the last 14 days. At this time, the client does not indicate any symptoms associated with coronavirus-19. Ebola Screen: Patient negative for fever greater than or equal to 101.5 degrees Fahrenheit, and additional compatible Ebola Virus Disease symptoms Patient denies exposure to infectious person. Patient denies travel to an Ebola-affected area in the 21 days before illness onset. No symptoms or risks identified at this time. Initial Sepsis Screen: Does the patient meet any 2 criteria? RR > 20 per min. Does the patient have a suspected source of infection? No. Patient's initial sepsis screen is negative. Risk Assessment: Do you want to hurt yourself or someone else? Patient reports no desire to harm self or others. Onset of symptoms was July 28, 2023. 09:15 Method Of Arrival: EMS: [facility] db 09:15 Acuity: DARSHAN 2 db Triage Assessment: 09:24 General: Appears in no apparent distress. comfortable, Behavior is calm, cooperative. db Pain: Denies pain. Respiratory: Reports shortness of breath at rest on exertion Airway is patent Respiratory effort is even, labored, Respiratory pattern is regular, symmetrical, Onset: The symptoms/episode began/occurred yesterday, the patient has moderate shortness of breath. 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 - Social history:: Smoking status: Patient denies any tobacco usage or history of. - Family history:: not pertinent. - Hospitalizations: : No recent hospitalization is reported. Screenin:[address] [facility] ED Fall Risk Assessment (Adult) History of falling in the last 3 months, me1 including since admission No falls in past 3 months (0 pts) Confusion or Disorientation No (0 pts) Intoxicated or Sedated No (0 pts) Impaired Gait No (0 pts) Mobility Assist Device Used No (0 pt) Altered Elimination No (0 pt) Score/Fall Risk Level 0 - 2 = Low Risk Maintained a safe environment, Provided non-skid footwear, Hourly rounding (assess needs \T\ fall precautionary measures) done. Abuse screen: Denies threats or abuse. Nutritional screening: No deficits noted. Tuberculosis screening: No symptoms or risk factors identified. Assessment: 10:05 Reassessment: Patient appears in no apparent distress at this time. Patient and/or db family updated on plan of care and expected duration. Pain level reassessed. Patient is alert, oriented x 3, equal unlabored respirations, skin warm/dry/pink. General: Appears in no apparent distress. comfortable, Behavior is calm, cooperative. Neuro: Level of Consciousness is awake, alert, obeys commands, Oriented to person, place, time, situation. Respiratory: Airway is patent Respiratory effort is even, labored, Respiratory pattern is regular, symmetrical. 10:15 Cardiovascular: Rhythm is sinus rhythm. me1 14:02 Respiratory: Breath sounds with wheezes bilaterally. me1 Vital Signs: 09:15 BP 147 / 84; Pulse 81; Resp 24; Temp 98.4(O); Pulse Ox 85% on R/A; Weight 165.56 kg; db Height 5 ft. 5 in. ; 11:00 BP 146 / 99; Pulse 77; Resp 14; Pulse Ox 99% on 3 lpm NC; me1 12:00 BP 134 / 83; Pulse 67; Resp 12; Pulse Ox 100% on R/A; me1 13:06 BP 122 / 77; Pulse 67; Resp 12; Pulse Ox 99% on 3 lpm NC; me1 14:00 BP 115 / 74; Pulse 61; Resp 12; Pulse Ox 98% on 3 lpm NC; me1 15:15 BP 142 / 84; Pulse 67; Resp 10; Pulse Ox 100% on 3 lpm NC; me1 16:09 BP 130 / 67; Pulse 76; Resp 16; Pulse Ox 97% on 3 lpm NC; me1 09:15 Body Mass Index 60.74 (165.56 kg, 165.1 cm) db 09:15 STARTED ON NC [address] SUTTON AT BEDSIDE db ED Course: 09:17 Patient arrived in ED. rn 09:17 Junito Sutton MD is Attending Physician. rn 09:22 Nicole Carrillo, VITA is Primary Nurse. db 09:24 Triage completed. db 09:24 Arm band placed on Patient placed in an exam room. db 09:35 First set of blood cultures drawn. db 09:45 Second set of blood cultures drawn. Inserted saline lock: 22 gauge in right antecubital db area, using aseptic technique. Blood collected. 09:45 Initial lab(s) drawn, by me, sent to lab. db 09:55 EKG done, by ED staff, reviewed by Junito Sutton MD. ls5 10:04 Initial Neb Treatment Given as ordered. db 10:09 XRAY CXR (1 view) In Process Unspecified. EDMS 10:10 COVID swab sent to lab. Flu and/or RSV swab sent to lab. me1 11:49 CT Chest For PE Angio In Process Unspecified. EDMS 11:53 IV discontinued, intact, bleeding controlled, No redness/swelling at site. Pressure me1 dressing applied. 11:54 Inserted saline lock: 22 gauge in left antecubital area, using aseptic technique. me1 12:35 Patient has correct armband on for positive identification. Bed in low position. Call me1 light in reach. Side rails up X 1. Provided Education on:. 12:45 Graeme Joy is Hospitalizing Provider. rn 13:20 ordered bariatric bed from [facility] confirmation number [id number]. bd 14:00 No provider procedures requiring assistance completed. me1 Administered Medications: 10:00 Drug: Levalbuterol Inhalation 1.25 mg Inhalation once Route: Inhalation; db 10:54 Follow up: Response: No adverse reaction; Wheezing diminished me1 10:00 Drug: NS 0.9% IV 500 ml IV at bolus once Route: IV; Rate: bolus; Site: right db antecubital; 12:35 Follow up: Response: No adverse reaction; IV Status: Completed infusion; IV Intake: me1 500ml 10:59 Drug: Diazepam PO 2 mg PO once Route: PO; me1 11:54 Follow up: Response: No adverse reaction; Anxiety decreased me1 Medication: 14:03 VIS not applicable for this client. me1 Intake: 12:35 IV: 500ml; Total: 500ml. me1 Outcome: 12:46 Decision to Hospitalize by Provider. rn 17:27 Admitted to Med/surg accompanied by tech, via stretcher, room 222, with oxygen, with me1 chart, Report called to Report faxed at 16:48 17:27 Condition: stable 17:27 Instructed on the need for admit, 17:34 Patient left the ED. me1 Signatures: Dispatcher [employer] EDMS Lillian Connell Roman, MD MD rn Benton, Danielle, RN RN db Suarez, Lorenzo 5 Sendy Cabello RN RN me1 Corrections: (The following items were deleted from the chart) 10:04 09:45 Initial Neb Treatment Given as ordered db db 10:06 09:24 Respiratory: Reports shortness of breath at rest on exertion Airway is patent db Respiratory effort is even, unlabored, Respiratory pattern is regular, symmetrical, Onset: The symptoms/episode began/occurred yesterday, the patient has moderate shortness of breath db 10:09 09:15 Chief complaint: EMS states: SOB 93% RA, DUONEB PROVIDED. PT COMPLAINS OF SOB me1 STARTED YESTERDAY. UPON ARRIVAL TO ED 85% RA AND SOB WITH TALKING AND AMBULATION db 13:19 13:06 Pulse 67bpm; Resp 12bpm; Pulse Ox 99% 3 lpm Nasal Cannula; me1 me1 14:02 14:02 Respiratory: Breath sounds are diminished bilaterally. me1 me1
--- NOTE | 2023-07-29 13:03 | P.HP ---
Certification for Inpatient Patient admitted to: Inpatient Practitioner: I am a practitioner with admitting privileges, knowledge of patient current condition, hospital course, and medical plan of care. Services: Services provided to patient in accordance with Admission requirements found in Title 42 Section 412.3 of the Code of Federal Regulations Patient History Date of Service: 07/30/23 Reason for admission: Shortness of breath History of Present Illness: 38-year-old female with a past medical history of morbid obesity, asthma, anemia, cardiac arrest, bipolar, hypertension, blood transfusions, hypothyroidism, diabetes, gys-xabhmey-vmkuyucet diabetes, presents to the emergency room with shortness of breath. She reports shortness of breath started last night. She reports shortness of breath worse with exertion, she reports history of chronic lung disease. History of prior intubation on after COVID. She denies chest pain, cough, she reports shortness of breath improved with oxygen. She denies being on home O2. She reports prior use of oxygen. Plan to admit for dyspnea, hypoxia, acute hypoxic respiratory failure secondary to asthma exacerbation. Pulmonary to consult, Allergies erythromycin base Allergy (Verified 06/23/21 08:58) Hives/Rash Penicillins Allergy (Verified 06/23/21 08:58) Hives/Rash Sulfa (Sulfonamide Antibiotics) Allergy (Verified 06/23/21 08:58) Hives/Rash sulfamethoxazole [From Bactrim] Allergy (Verified 06/23/21 08:58) Unknown trimethoprim [From Bactrim] Allergy (Verified 06/23/21 08:58) Unknown Home Medications: Albuterol Inhaler [Ventolin Inhaler*] 2 puff IH Q4H PRN 01/10/23 Albuterol Inhaler [Ventolin Inhaler*] 2 puff IH Q6H PRN #1 inhaler 01/10/23 Benzonatate [Tessalon Perle*] 100 mg PO TID PRN #21 cap 01/10/23 Levothyroxine Sodium 150 mcg PO DAILY 01/10/23 predniSONE [Prednisone*] 20 mg PO BID #10 tab 01/10/23 - Past Medical/Surgical History Diabetic: No -: hypothyroidism -: anxiety -: depression -: bipolar -: Asthma -: COVID pneumonia -: COVID pneumonia -: c section -: tubal ligation -: tonsillectomy -: Adenoidectomy -: Hernia repair,abdominal, needs another repair -: Appendectomy Psychosocial/ Personal History: 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 - Family History Father -: Other (see notes) Notes: drug addict, ETOH abuse Mother -: Heart disease, Hypertension, Lung disease, Diabetes, Stroke, Other (see notes) Notes: copd,chf - Social History Alcohol use: No CD- Drugs: No Caffeine use: Yes Review of Systems Per HPI Physical Examination - Physical Exam General: Alert, In no apparent distress, Oriented x3, Other (Morbid obesity) HEENT: Atraumatic, Normocephalic Neck: Supple, 2+ carotid pulse no bruit Cardiovascular: No edema, Normal pulses, Regular rate/rhythm Gastrointestinal: Normal bowel sounds, Soft and benign Musculoskeletal: No clubbing, No swelling Integumentary: No rashes, No breakdown Neurological: Normal speech, Normal strength at 5/5 x4 extr - Studies Laboratory Data (last 24 hrs) 07/29/23 07/29/23 07/29/23 09:45 09:45 09:45 WBC 7.30 Hgb 10.9 L Hct 33.0 L Plt Count 284 PT 10.7 INR 0.97 APTT 34.7 Sodium 139 Potassium 3.4 L BUN 13 Creatinine 1.25 H Glucose 96 Magnesium 2.6 H Total Bilirubin 0.4 AST 47 H ALT 31 Alkaline Phosphatase 46 Microbiology Data (last 24 hrs): 07/29/23 09:37 Nasopharnyx Influenza Type A Antigen Screen - Final 07/29/23 09:37 Nasopharnyx Influenza Type B Antigen Screen - Final Assessment and Plan - Plan Assessment plan Acute hypoxic respiratory failure secondary to asthma exacerbation Dyspnea, Obesity hypoventilation syndrome Pulmonary consult, O2, steroids, Atrovent, Dulera inhalers at bedside Troponins normal 4.8, BNP normal 9, lactic acid normal at 0.9 CT of the chest no evidence of pulmonary emboli, no significant fine Chest x-ray FINDINGS: The lungs are clear, apart from stable right basilar streaky atelectasis. No pneumothorax or effusion. The cardiomediastinal contours are unremarkable. Microcytic anemia Trend H&H Hemoglobin 10.9, 10.5 Hypertension Bipolar Hypothyroidism Medication noncompliance Resume home medication Diabetes Accu-Cheks, sliding scale insulin, Full code DVT Lovenox Diet diabetic Disposition Home Discharge Plan: Home - Advance Directives Does patient have a Living Will: No Does patient have a Durable POA for Healthcare: No - Code Status/Comfort Care Code Status: Full Code Critical Care: No Time Spent Managing Pts Care (In Minutes): 55
[2023-07-29] MEDS: dexAMETHasone 10 MG/ML VIAL IV SCH (13:30)
[2023-07-29] MEDS ORDERED: BENZONATATE 100 MG CAP PO PRN (13:30)
[2023-07-29] MEDS ORDERED: ONDANSETRON 4 MG/2 ML VIAL IV PRN (13:37)
[2023-07-29] MEDS: NA CHLORIDE 0.9% 1,000 ML IV SCH (13:37)
[2023-07-29] MEDS ORDERED: ALBUTEROL INHALER 200 PUFF/6.7 GM IH PRN (13:37)
[2023-07-29] MEDS: METHYLPREDNISOLONE 125 MG INJ IV SCH (14:00)
[2023-07-29] MEDS ORDERED: ALBUTEROL 2.5 MG/3 ML NEB SOL NEB PRN (14:05)
[2023-07-29] MEDS ORDERED: NA CHLORIDE 0.9% 1,000 ML ONE (15:00)
[2023-07-29] MEDS ORDERED: METHYLPREDNISOLONE 40 MG INJ ONE (16:18)
[2023-07-29 16:54] LABS: Urine Bacteria <20 /HPF (<20); Urine Bilirubin NEGATIVE (Negative); Urine Blood Negative (Negative); Urine Clarity Clear (Clear); Urine Color Light-Yellow (Yellow); Urine Glucose NEGATIVE (Negative); Urine Mucus Slight /HPF (None Seen); Urine Protein TRACE (Negative); Urine Urobilinogen 1+ (Normal); Urine pH 6.5 (5.0-7.0)
[2023-07-29 16:56] LABS: Specific Gravity > 1.030 (1.005-1.030)
[2023-07-29 18:56] VITALS: BMI 60.5
[2023-07-29] MEDS: ALBUTEROL 2.5 MG/3 ML NEB SOL NEB SCH (20:19)
[2023-07-29] MEDS: ALPRAZOLAM 0.25 MG TABLET PO PRN (20:51)
[2023-07-29] MEDS: DULERA 200/5 (MOMETASONE/FORMOTEROL) INHALER IH SCH (20:54)
[2023-07-29] MEDS ORDERED: NIRMATRELVIR/RITONAVIR TABLET PO SCH (21:00)
[2023-07-30 04:07] LABS: Absolute Basophils 0.1 K/uL (0-0.5); Absolute Lymphocytes (CBC) 1.6 K/uL (0.7-4.9); Basophils % 0.8 % (0-1.3); Hematocrit 31.5 % (36.0-45.0); MCV 92.4 fL (80-100); MPV 8.7 fL (7.6-11.3); Platelets 253 thou/uL (152-406); RBC Red Blood Cell Count 3.41 M/uL (3.86-4.86)
[2023-07-30 04:14] LABS: Magnesium 2.7 mg/dL (1.6-2.4); Phosphorus 3.5 mg/dL (2.5-4.9)
--- NOTE | 2023-07-30 08:06 | P.PN ---
Subjective Date of Service: 07/30/23 Shortness of breath, O2 2 L as needed, nebulizers, orders for inhalers at bedside, morbid obese - Physical Exam General: Alert, In no apparent distress, Oriented x3, Other (Morbid obesity) HEENT: Atraumatic, Normocephalic Neck: Supple, 2+ carotid pulse no bruit Cardiovascular: No edema, Normal pulses, Regular rate/rhythm Gastrointestinal: Normal bowel sounds, Soft and benign Musculoskeletal: No clubbing, No swelling Integumentary: No rashes, No breakdown Review of Systems Per HPI Physical Examination - Vital Signs Temperature: 97.5 F Blood Pressure: 105/54 Pulse: 77 Respirations: 16 Pulse Ox (%): 94 - Studies Laboratory Data (last 24 hrs) 07/29/23 07/29/23 07/29/23 09:45 09:45 09:45 WBC 7.30 Hgb 10.9 L Hct 33.0 L Plt Count 284 PT 10.7 INR 0.97 APTT 34.7 Sodium 139 Potassium 3.4 L BUN 13 Creatinine 1.25 H Glucose 96 Magnesium 2.6 H Total Bilirubin 0.4 AST 47 H ALT 31 Alkaline Phosphatase 46 Microbiology Data (last 24 hrs): 07/29/23 09:37 Nasopharnyx Influenza Type A Antigen Screen - Final 07/29/23 09:37 Nasopharnyx Influenza Type B Antigen Screen - Final Assessment And Plan - Plan Assessment plan Acute hypoxic respiratory failure secondary to asthma exacerbation Dyspnea, Obesity hypoventilation syndrome Pulmonary consult, O2, steroids, Atrovent, Dulera inhalers at bedside Troponins normal 4.8, BNP normal 9, lactic acid normal at 0.9 CT of the chest no evidence of pulmonary emboli, no significant fine Chest x-ray FINDINGS: The lungs are clear, apart from stable right basilar streaky atelectasis. No pneumothorax or effusion. The cardiomediastinal contours are unremarkable. Microcytic anemia Trend H&H Hemoglobin 10.9, 10.5 Hypertension Bipolar Hypothyroidism Medication noncompliance Resume home medication Diabetes Accu-Cheks, sliding scale insulin, Full code DVT Lovenox Diet diabetic Disposition Home Discharge Plan: Home Discharge Plan: Home - Code Status/Comfort Care Code Status: Full Code Critical Care: No Time Spent Managing PTS Care (In Minutes): 35
[2023-07-30] MEDS ORDERED: D50W 25 GM/50 ML SYRINGE IV PRN (08:13)
[2023-07-30] MEDS ORDERED: GLUCAGON 1 MG/VIAL IM PRN (08:13)
[2023-07-30] MEDS ORDERED: D10W 125 ML IV PRN (08:16)
[2023-07-30] MEDS ORDERED: AZITHROMYCIN IV 500 MG in NA CHLORIDE 0.9% 250 ML IVPB SCH (09:00)
[2023-07-30] MEDS: ALPRAZOLAM 0.25 MG TABLET PO ONE (11:02)
[2023-07-30] MEDS: INSULIN REGULAR (HUMAN) 100 UNIT/ML SQ SCH (11:30)
--- NOTE | 2023-07-30 11:50 | P.CNS ---
Date of Consult: 07/30/23 Reason for Consult: Asthma exacerbation Chief Complaint: Shortness of breath History of Present Illness: Patient is 38 years of age has a history of asthma noncompliant with any inhalers she has no insurance remaining acutely became worse Allergies erythromycin base Allergy (Verified 06/23/21 08:58) Hives/Rash Penicillins Allergy (Verified 06/23/21 08:58) Hives/Rash Sulfa (Sulfonamide Antibiotics) Allergy (Verified 06/23/21 08:58) Hives/Rash sulfamethoxazole [From Bactrim] Allergy (Verified 06/23/21 08:58) Unknown trimethoprim [From Bactrim] Allergy (Verified 06/23/21 08:58) Unknown Home Medications: Albuterol Inhaler [Ventolin Inhaler*] 2 puff IH Q6H PRN #1 inhaler 01/10/23 ALPRAZolam [Xanax] 0.5 mg PO BID PRN #20 tab 07/30/23 Albuterol Inhaler [Ventolin Inhaler*] 2 puff IH Q4H PRN #1 inh 07/30/23 Benzonatate [Tessalon Perle*] 100 mg PO TID PRN #21 cap 07/30/23 Cefdinir [Cefdinir*] 300 mg PO BID #14 cap 07/30/23 Levothyroxine Sodium 150 mcg PO DAILY #30 tab 07/30/23 Mometasone/Formoterol [Dulera 200 Mcg/5 Mcg Inhaler] 2 puff IH BID #1 inhaler 07/30/23 Semaglutide [Ozempic] 0.25 mg SQ EVERY 7TH DAY #4 syr 07/30/23 predniSONE [Prednisone*] 20 mg PO BID #11 tab 07/30/23 - Past Medical/Surgical History Diabetic: No -: hypothyroidism -: anxiety -: depression -: bipolar -: Asthma -: COVID pneumonia -: COVID pneumonia -: c section -: tubal ligation -: tonsillectomy -: Adenoidectomy -: Hernia repair,abdominal, needs another repair -: Appendectomy Psychosocial/ Personal History: 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 - Family History Father Medical History: Other (see notes) Notes: drug addict, ETOH abuse Mother Medical History: Heart disease, Hypertension, Lung disease, Diabetes, Stroke, Other (see notes) Notes: copd,chf - Social History Smoking Status: Current some day smoker Alcohol use: No CD- Drugs: No Caffeine use: Yes Review of Systems 10-point ROS is otherwise unremarkable General: Weakness Respiratory: Shortness of Breath Physical Examination Temp Pulse Resp BP Pulse Ox 97.5 F 77 16 105/54 L 94 07/30/23 08:18 07/30/23 08:18 07/30/23 08:18 07/30/23 08:18 07/30/23 08:18 General: Alert, Oriented x3, Cachectic HEENT: Atraumatic Neck: Supple Respiratory: Normal air movement, Diminished Cardiovascular: No edema, Normal pulses, Regular rate/rhythm, Normal S1 S2 - Problems (1) Asthma exacerbation Current Visit: No Status: Acute Plan: Patient is 38 years of age morbidly obese metabolic syndrome admitted with shortness of breath she has a history of asthma cannot afford any medication patient has no insurance CT findings are negative for pulmonary embolism continue with bronchodilators inhalers follow-up with [facility] oxygenation is satisfactory patient is not wheezing can discharge home on low- dose prednisone 10 mg twice a day for a week addition to Dulera Qualifiers: Asthma severity: moderate Asthma persistence: unspecified Qualified Code(s): J45.901 - Unspecified asthma with (acute) exacerbation
[2023-07-30 12:06] LABS: Thyroid Stimulating Hormone 36.4 uIU/mL (0.358-3.740)
[2023-07-30] MEDS: VANCOMYCIN 2.5 GM in NA CHLORIDE 0.9% 500 ML IVPB ONE (13:01)
--- NOTE | 2023-07-30 14:17 | EKG ---
Test Date: 2023-07-29 Test Time: 09:40:40 Cna Hha: COLLIN MEASUREMENT RESULTS: Intervals: Rate: 80 UT: QRSD: 102 QT: 346 QTc: 399 [place]: P: UT: QRS: -4 T: 181 INTERPRETIVE STATEMENTS: Sinus rhythm Low voltage QRS Possible Anterolateral infarct, age undetermined Abnormal ECG Compared to ECG 05/30/2023 22:13:06 Low QRS voltage now present Myocardial infarct finding now present Electronically Signed On 07-30-23 14:13:45 OIL WELL ENGINEER by Jeb Rodas
[2023-07-30] MEDS: ACETAMINOPHEN 500 MG TAB PO PRN (15:31)
[2023-07-30] MEDS ORDERED: LICE TREATMENT 1 APPL/120 ML BTL TOP SCH (16:00)
[2023-07-30] MEDS: hydrOXYzine HCL 25 MG TAB PO PRN (16:36)
[2023-07-30] MEDS: ALPRAZOLAM 0.5 MG TABLET PO ONE (16:36)
[2023-07-30] MEDS: ENOXAPARIN 40 MG/0.4 ML SQ SCH (16:37)
[2023-07-30] MEDS: Levofloxacin500mg IV 500 MG/100 ML BAG IV SCH (17:28)
--- NOTE | 2023-07-30 18:02 | P.DS ---
Admission Date: 07/30/23 Discharge Date: 07/30/23 Disposition: ROUTINE DISCHARGE Discharge Condition: GOOD Reason for Admission: Shortness of breath Brief History of Present Illness: 38-year-old female with a past medical history of morbid obesity, asthma, anemia, cardiac arrest, bipolar, hypertension, blood transfusions, hypothyroidism, diabetes, [id number] diabetes, presents to the emergency room with shortness of breath. She reports shortness of breath started last night. She reports shortness of breath worse with exertion, she reports history of chronic lung disease. History of prior intubation on after COVID. She denies chest pain, cough, she reports shortness of breath improved with oxygen. She denies being on home O2. She reports prior use of oxygen. Plan to admit for dyspnea, hypoxia, acute hypoxic respiratory failure secondary to asthma exacerbation. Pulmonary to consult, - Physical Exam General: Alert, In no apparent distress, Oriented x3, Other (Morbid obesity) HEENT: Atraumatic, Normocephalic Neck: Supple, 2+ carotid pulse no bruit Cardiovascular: No edema, Normal pulses, Regular rate/rhythm Gastrointestinal: Normal bowel sounds, Soft and benign Musculoskeletal: No clubbing, No swelling Integumentary: No rashes, No breakdown Neurological: Normal speech, Normal strength at 5/5 x4 extr Hospital Course: 38 year old female presented with shortness of breath, she was admitted with ashtma exacerbation. She reports previously on home oxygen, however not currently on home O2. She has past medical history of asthma. She reports shortness of breath, worse with exertion. She was evaluated by pulmonary treated with steroids, nebulizer. oxygen. shortness of breath improved, inhaler Dulara, albuterol given to patient to keep at bedside and take home after discharge. she has history of medication noncompliance with inhalers. stable to discharge home, follow up with primary care physician., Pulmonary Problem Asthma exacerbation New medications prednisone, Albuterol inhaler, Dulera inhaler, Cefdinir, Continue home medicines as previously prescribed GOAL: Clear understanding of disease process INSTRUCTIONS: Physician Discharge Instructions: -Follow-up with PCP in 1 to 2 weeks -Please call Dr. Vieira at [phone] if any questions regarding hospital stay -Please call nursing station at [phone] if any nursing or medication questions -Return to the emergency room if symptoms worsen Diet: ADA, low sodium Activity: Fall precautions Vital Signs/Physical Exam: Temp Pulse Resp BP Pulse Ox 97.5 F 77 16 105/54 L 94 07/30/23 17:56 07/30/23 17:56 07/30/23 17:56 07/30/23 17:56 07/30/23 17:56 Laboratory Data at Discharge: WBC 8.70 thou/uL (4.3-10.9) 07/30/23 03:08 Hgb 10.5 g/dL (12.0-15.0) L 07/30/23 03:08 Hct 31.5 % (36.0-45.0) L 07/30/23 03:08 Plt Count 253 thou/uL (152-406) 07/30/23 03:08 PT 10.7 SECONDS (9.5-12.5) 07/29/23 09:45 INR 0.97 07/29/23 09:45 APTT 34.7 SECONDS (24.3-36.9) 07/29/23 09:45 Sodium 139 mEq/L (136-145) 07/30/23 03:08 Potassium 4.0 mEq/L (3.5-5.1) D 07/30/23 03:08 BUN 13 mg/dL (7-18) 07/30/23 03:08 Creatinine 1.07 mg/dL (0.55-1.02) H 07/30/23 03:08 Glucose 123 mg/dL (74-106) H 07/30/23 03:08 Phosphorus 3.5 mg/dL (2.5-4.9) 07/30/23 03:08 Magnesium 2.7 mg/dL (1.6-2.4) H 07/30/23 03:08 Total Bilirubin 0.4 mg/dL (0.2-1.0) 07/29/23 09:45 AST 47 U/L (15-37) H 07/29/23 09:45 ALT 31 U/L (13-56) 07/29/23 09:45 Alkaline Phosphatase 46 U/L (45-117) 07/29/23 09:45 Home Medications: Albuterol Inhaler [Ventolin Inhaler*] 2 puff IH Q6H PRN #1 inhaler 01/10/23 ALPRAZolam [Xanax] 0.5 mg PO BID PRN #20 tab 07/30/23 Albuterol Inhaler [Ventolin Inhaler*] 2 puff IH Q4H PRN #1 inh 07/30/23 Benzonatate [Tessalon Perle*] 100 mg PO TID PRN #21 cap 07/30/23 Cefdinir [Cefdinir*] 300 mg PO BID #14 cap 07/30/23 Levothyroxine Sodium 150 mcg PO DAILY #30 tab 07/30/23 Mometasone/Formoterol [Dulera 200 Mcg/5 Mcg Inhaler] 2 puff IH BID #1 inhaler 07/30/23 Semaglutide [Ozempic] 0.25 mg SQ EVERY 7TH DAY #4 syr 07/30/23 predniSONE [Prednisone*] 20 mg PO BID #11 tab 07/30/23 New Medications: Cefdinir [Cefdinir*] 300 mg PO BID #14 cap Mometasone/Formoterol [Dulera 200 Mcg/5 Mcg Inhaler] 2 puff IH BID #1 inhaler Levothyroxine Sodium 150 mcg PO DAILY #30 tab Semaglutide [Ozempic] 0.25 mg SQ EVERY 7TH DAY #4 syr predniSONE [Prednisone*] 20 mg PO BID #11 tab Benzonatate [Tessalon Perle*] 100 mg PO TID PRN #21 cap PRN Reason: Cough Albuterol Inhaler [Ventolin Inhaler*] 2 puff IH Q4H PRN #1 inh PRN Reason: asthma ALPRAZolam [Xanax] 0.5 mg PO BID PRN #20 tab PRN Reason: Anxiety Physician Discharge Instructions: -DC IV and DC home -Follow-up with PCP in 1 to 2 weeks -Follow-up with Pulmonary in 1 to 2 weeks -Please call Dr. Vieira at [phone] if any questions regarding hospital stay -Please call nursing station at [phone] if any nursing or medication questions -Return to the emergency room if symptoms worsen Diet: AHA Activity: Fall precautions Followup: Lloyd Lugo MD [ACTIVE - CAN ADMIT] - 1-2 Weeks MICHEAL SHARPE CENTR [Primary Care Provider] - Time spent managing pt's care (in minutes): 55
[2023-07-30] MEDS: VANCOMYCIN 1.5 GM in NA CHLORIDE 0.9% 500 ML IVPB SCH (20:58)
[2023-07-30] MEDS: predniSONE 20 MG TAB PO SCH (21:00)
[2023-07-31] MEDS: LEVOTHYROXINE SOD 0.1 MG TAB PO SCH (06:30)
[2023-07-31 07:23] LABS: Absolute Basophils 0.1 K/uL (0-0.5); Absolute Lymphocytes (CBC) 2.3 K/uL (0.7-4.9); Basophils % 0.6 % (0-1.3); Hematocrit 32.2 % (36.0-45.0); Lymphocytes % 13.7 % (15.3-44.8); MCV 92.7 fL (80-100); MPV 8.6 fL (7.6-11.3); Platelets 298 thou/uL (152-406); RBC Red Blood Cell Count 3.47 M/uL (3.86-4.86)
[2023-07-31 07:43] LABS: Albumin 3.9 g/dL (3.4-5.0); Anion Gap 6.1 mEq/L (5.0-15.0); Bilirubin Total 0.3 mg/dL (0.2-1.0); Magnesium 2.7 mg/dL (1.6-2.4); Potassium 4.1 mEq/L (3.5-5.1); Protein, Total 7.9 g/dL (6.4-8.2)
[2023-07-31] MEDS ORDERED: Levofloxacin500mg IV 500 MG/100 ML BAG IV SCH (09:00)
[2023-07-31] MEDS ORDERED: ALBUTEROL INHALER 200 PUFF/6.7 GM IH SCH (09:00)
[2023-07-31 09:07] VITALS: BP 137/85; TEMP 98
[2023-07-31 10:05] VITALS: O2SAT 97
== END 2023-07-31 11:00 | disposition home or self-care (01) | DRG 189 ==
LOC: ER 09:09 → ERHOLD 12:55 → INTOOBSV 12:55 → 2ND 16:56 → OBSVTOIN 07-30 16:49
PROVIDERS: ADMIT Hospitalist; ATTEND Hospitalist
DX: J96.01 Acute respiratory failure with hypoxia (principal); J45.901 Unspecified asthma with (acute) exacerbation; Z68.44 Body mass index [BMI] 60.0-69.9, adult; E66.2 Morbid (severe) obesity with alveolar hypoventilation; R64 Cachexia; I10 Essential (primary) hypertension; E03.9 Hypothyroidism, unspecified; D50.9 Iron deficiency anemia, unspecified; F31.9 Bipolar disorder, unspecified; E11.9 Type 2 diabetes mellitus without complications; F17.200 Nicotine dependence, unspecified, uncomplicated; Z88.0 Allergy status to penicillin; Z88.2 Allergy status to sulfonamides; Z88.1 Allergy status to other antibiotic agents; Z90.49 Acquired absence of other specified parts of digestive tract; Z98.51 Tubal ligation status; Z86.16 Personal history of COVID-19; Z79.52 Long term (current) use of systemic steroids; Z79.890 Hormone replacement therapy; Z79.899 Other long term (current) drug therapy; Z91.148 Patient's other noncompliance with medication regimen for other reason
CPT/HCPCS: 36415; 71045; 71275; 80048; 80053; 81001; 83605; 83735; 83880; 84100; 84145; 84439; 84443; 84484; 85025; 85610; 85730; 87040; 87077; 87186; 87205; 87804; 87811; 93005; 94640; 96360; 96361; 99285; G0378; J1650; J2920; J2930; J3535; J7030; J7040; J7512; J7613; J7614; Q9967

== ENCOUNTER 2023-08-27 16:22 | Emergency (ER) | payer SELFPAY ==
--- OUTSIDE RECORDS SUMMARY | 2023-08-27 16:25 | XMS REPORT | Continuity of Care Document ---
Author Name Unknown Address [address] [place] [address] [place] [address] thconnect Address [address] [place] [address]. [address] [place] [address] Care Team Providers Care Radio News Writer Name Role Phone Unavailable Unavailable Unavailable
[2023-08-27] MEDS ORDERED: ONDANSETRON 4 MG/2 ML VIAL ONE (17:00)
[2023-08-27] MEDS ORDERED: FAMOTIDINE 20 MG/2 ML VIAL IV ONE (17:01)
[2023-08-27] MEDS ORDERED: NA CHLORIDE 0.9% 1,000 ML ONE (17:01)
[2023-08-27 17:03] LABS: Absolute Basophils 0.1 K/uL (0-0.5); Absolute Eosinophils 0.3 K/uL (0-0.5); Absolute Lymphocytes (CBC) 2.5 K/uL (0.7-4.9); Absolute Monocytes 0.7 K/uL (0.1-1.3); Absolute Neutrophil 6.4 K/uL (1.8-8.0); Basophils % 0.9 % (0-1.3); Eosinophils % 3.4 % (0-4.4); Hematocrit 34.8 % (36.0-45.0); Hemoglobin 11.2 g/dL (12.0-15.0); Lymphocytes % 25.3 % (15.3-44.8); MCH 29.4 pg (27.0-35.0); MCHC 32.2 g/dL (32.0-36.0); MCV 91.2 fL (80-100); MPV 8.1 fL (7.6-11.3); Monocytes % 6.5 % (3.3-12.3); Neutrophils % 63.9 % (41.7-73.7); Platelets 371 thou/uL (152-406); RBC Red Blood Cell Count 3.81 M/uL (3.86-4.86); Red Cell Distribution Width 14.2 % (12.1-15.2)
[2023-08-27 17:05] LABS: Specific Gravity 1.029 (1.005-1.030)
[2023-08-27 17:07] LABS: Specific Gravity 1.029 (1.005-1.030); Urine Bacteria 20-50 /HPF (<20); Urine Bilirubin NEGATIVE (Negative); Urine Blood 3+ (OVER) (Negative); Urine Clarity Extremely Turbid (Clear); Urine Color Yellow (Yellow); Urine Culture Reflex Order REFLEXED; Urine Glucose NEGATIVE (Negative); Urine Ketones NEGATIVE (Negative); Urine Microscopic Reflex YN ORDER UMIC; Urine Mucus 4+ /HPF (None Seen); Urine Nitrite NEGATIVE (Negative); Urine Protein 1+ (Negative); Urine RBC >50 /HPF (None Seen); Urine Urobilinogen 1+ (Normal)
[2023-08-27 17:11] LABS: Albumin 3.6 g/dL (3.4-5.0); Albumin/Globulin Ratio 0.9 (1.1-1.8); Anion Gap 7.6 mEq/L (5.0-15.0); Bilirubin Total 0.3 mg/dL (0.2-1.0); Globulin 4.2 g/dL (2.3-3.5); Potassium 3.6 mEq/L (3.5-5.1); Protein, Total 7.8 g/dL (6.4-8.2)
[2023-08-27 17:12] LABS: SARS-CoV-2 Antigen CONTROL BLUE LINE VIS/BG OK; SARS-CoV-2 Antigen Rapid Res Negative (Negative)
--- NOTE | 2023-08-27 17:45 | EDPHYS ---
Physician Documentation [facility] Name: Rachael Knox Age: 38 yrs Sex: Female : 1985 Arrival Date: 08/27/2023 Time: 16:22 Bed 7 Private MD: ED Physician Junito Sutton HPI: 08/26 16:27 This 38 yrs old Female presents to ER via Unassigned with complaints of rn dizziness. 16:27 The patient presents with generalized weakness, lightheadedness. Onset: The rn symptoms/episode began/occurred last night. Modifying factors: The symptoms are alleviated by nothing, the symptoms are aggravated by standing up. Severity of symptoms: At their worst the symptoms were moderate in the emergency department the symptoms are unchanged. The patient has not experienced similar symptoms in the past. Patient reports feeling lightheaded and generalized weakness since last night. Patient reports just does not feel well. Has a history of hiatal hernia and has been having decreased appetite and not eating or drinking as much because it upsets her stomach. Denies chest pain. No shortness of breath. No diarrhea. No blood in stool. Not on daily antacid. States that her son is sick for the last few days with a stomach bug.. 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 - Infectious Disease History:: Denies. - Family history:: not pertinent. - Social history:: Smoking status: Patient denies any tobacco usage or history of. - Hospitalizations: : No recent hospitalization is reported. ROS: 16:27 Constitutional: Negative for fever, chills, and weight loss, Cardiovascular: Negative rn for chest pain, palpitations, and edema, Respiratory: Negative for shortness of breath, cough, wheezing, and pleuritic chest pain, Abdomen/GI: Positive for upper abdominal cramping and nausea with decreased appetite Back: Negative for injury and pain, : Negative for injury, bleeding, discharge, and swelling, MS/Extremity: Negative for injury and deformity, Skin: Negative for injury, rash, and discoloration, Neuro: Positive for generalized weakness Exam: 16:27 Constitutional: This is a well developed, well nourished patient who is awake, alert, rn and in no acute distress. Cardiovascular: Regular rate and rhythm. No pulse deficits. Respiratory: No increased work of breathing, no retractions or nasal flaring. Abdomen/GI: Soft, mild epigastric tenderness. No rebound or guarding. Negative Montes MS/ Extremity: Pulses equal, no cyanosis. Neuro: Awake and alert, GCS 15 Vital Signs: 16:27 BP 147 / 86; Pulse 89; Resp 18 S; Temp 98; Pulse Ox 99% on R/A; Weight 161.48 kg (R); as6 Height 5 ft. 5 in. (R); Pain 0/10; 17:58 BP 121 / 70; Pulse 75; Resp 19 S; Pulse Ox 95% on R/A; as6 16:27 Body Mass Index 59.24 (161.48 kg, 165.1 cm) as6 16:27 Pain Scale: Adult as6 MDM: 16:25 Patient medically screened. rn 17:43 Differential diagnosis: generalized weakness, hypovolemia, idiopathic dizziness. Data rn reviewed: vital signs, nurses notes, lab test result(s), and as a result, I will discharge patient. Counseling: I had a detailed discussion with the patient and/or guardian regarding the historical points, exam findings, and any diagnostic results supporting the discharge/admit diagnosis, lab results, the need for outpatient follow up, to return to the emergency department if symptoms worsen or persist or if there are any questions or concerns that arise at home. Special discussion: I discussed with the patient/guardian in detail that at this point there is no indication for admission to the hospital. It is understood, however, that if the symptoms persist or worsen the patient needs to return immediately for re-evaluation. Based on the history and exam findings, there is no indication for further emergent testing or inpatient evaluation. I discussed with the patient/guardian the need to see the gum dipper for further evaluation of the symptoms. I discussed with the patient/guardian the need to see the primary care provider for further evaluation of the symptoms. 17:43 ED course: Patient feels much better. No acute findings and workup. I have personally rn reviewed all of the results, including but not limited to blood tests and imaging deemed necessary to safely discharge this patient at this time. All results given to and printed out for patient. I personally went over all the results with the patient and answered all questions. Patient will follow-up with PCP and or specialist as discussed. Return precautions given and understood.. 08/26 16:25 Order name: CBC with Diff; Complete Time: 17:13 rn 08/26 16:25 Order name: CMP; Complete Time: 17:13 rn 08/26 16:25 Order name: Lipase; Complete Time: 17:13 08/26 16:25 Order name: Test, Urine; Complete Time: 17:13 08/26 16:25 Order name: Urinalysis w/ reflexes; Complete Time: 17:13 08/26 16:27 Order name: SARS RAPID; Complete Time: 17:23 08/26 16:27 Order name: Flu; Complete Time: 17:23 rn 08/26 16:27 Order name: Strep 08/26 17:10 Order name: Urine Culture [facility] 08/26 17:17 Order name: Throat Culture [facility] 08/26 16:25 Order name: IV Saline Lock; Complete Time: 16:52 08/26 16:25 Order name: Labs collected and sent; Complete Time: 16:52 rn Administered Medications: 17:07 Drug: NS 0.9% IV 1000 ml IV at 1 bolus Per protocol; 1000 mL bolus Route: IV; Rate: 1 as6 bolus; Site: right antecubital; 17:56 Follow up: Response: No adverse reaction; IV Status: Completed infusion; IV Intake: as6 1000ml 17:07 Drug: Famotidine IVP 20 mg IVP once; dilute with 10 mL 0.9% NaCl; give over 2 minutes as6 Route: IVP; Site: right antecubital; 17:57 Follow up: Response: No adverse reaction as6 17:07 Drug: Ondansetron IVP 4 mg IVP once; over 2 minutes Route: IVP; Site: right antecubital;as6 17:56 Follow up: Response: No adverse reaction as6 Disposition Summary: 08/27/23 17:45 Discharge Ordered Notes: Location: Home rn Problem: an ongoing problem rn Symptoms: have improved rn Condition: Stable rn Diagnosis - Dizziness and giddiness rn - Nausea rn Followup: rn - With: Private Physician - When: As needed - Reason: Recheck today's complaints, Re-evaluation by your physician Discharge Instructions: - Discharge Summary Sheet rn - Dizziness rn - Nausea, Adult rn - Urinary Tract Infection, Adult rn Forms: - Medication Reconciliation Form rn - Thank You Letter rn - Antibiotic rn nursery - Prescription Opioid Use rn - Patient Portal Instructions rn - Leadership Thank You Letter rn Prescriptions: - ondansetron 4 mg Oral Tablet,disintegrating - take 1 tablet ORAL route every 8 hours As needed; 10 tablet; Refills: 0, rn Product Selection Permitted - Protonix 40 mg Oral Tablet - take 1 tablet ORAL route once daily; 30 tablet; Refills: 0, Product Selection rn Permitted - Cipro 500 mg Oral Tablet - take 1 tablet ORAL route every 12 hours for 7 days; 14 tablet; Refills: 0, rn Product Selection Permitted Signatures: Dispatcher [employer] Junito López MD MD rn Smooth Wilson RN RN as6
--- NOTE | 2023-08-27 17:45 | ER ---
Nurse's Notes [facility] Name: Rachael Knox Age: 38 yrs Sex: Female : 1985 Arrival Date: 08/27/2023 Time: 16:22 Bed 7 Private MD: Diagnosis: Dizziness and giddiness;Nausea Presentation: 08/26 16:29 Chief complaint: EMS states: called outf or dizziness. Coronavirus screen: At this as6 time, the client does not indicate any symptoms associated with coronavirus-19. Ebola Screen: No symptoms or risks identified at this time. Initial Sepsis Screen: Does the patient meet any 2 criteria? No. Patient's initial sepsis screen is negative. Does the patient have a suspected source of infection? No. Patient's initial sepsis screen is negative. Risk Assessment: Do you want to hurt yourself or someone else? Patient reports no desire to harm self or others. Onset of symptoms was August 27, 2023. 16:29 Acuity: DARSHAN 3 as6 16:29 Method Of Arrival: EMS: [facility] as6 Triage Assessment: 16:27 General: Appears in no apparent distress. Behavior is calm, cooperative, quiet. Pain: as6 Denies pain. EENT: No deficits noted. No signs and/or symptoms were reported regarding the EENT system. Neuro: Level of Consciousness is awake, alert, obeys commands, Oriented to person, place, time, situation. Neuro: Reports dizziness. Cardiovascular: Reports lightheadedness, Capillary refill < 3 seconds Patient's skin is warm and dry. Respiratory: Respiratory effort is even, unlabored, Respiratory pattern is regular, symmetrical, Denies shortness of breath. GI: No deficits noted. No signs and/or symptoms were reported involving the gastrointestinal system. : No deficits noted. No signs and/or symptoms were reported regarding the genitourinary system. Derm: Skin is intact. Musculoskeletal: Circulation, motion, and sensation intact. 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 - Infectious Disease History:: Denies. - Family history:: not pertinent. - Social history:: Smoking status: Patient denies any tobacco usage or history of. - Hospitalizations: : No recent hospitalization is reported. Screenin:[facility] ED Fall Risk Assessment (Adult) History of falling in the last 3 months, as6 including since admission No falls in past 3 months (0 pts) Confusion or Disorientation No (0 pts) Intoxicated or Sedated No (0 pts) Impaired Gait No (0 pts) Mobility Assist Device Used No (0 pt) Altered Elimination No (0 pt) Score/Fall Risk Level 0 - 2 = Low Risk Oriented to surroundings, Maintained a safe environment, Educated pt \T\ family on fall prevention, incl call for assistance when getting out of bed, Hourly rounding (assess needs \T\ fall precautionary measures) done. Abuse screen: Denies threats or abuse. Denies injuries from another. Nutritional screening: No deficits noted. Tuberculosis screening: No symptoms or risk factors identified. Assessment: 16:32 General: see triage assessment . as6 17:57 Reassessment: Patient appears in no apparent distress at this time. Patient and/or as6 family updated on plan of care and expected duration. Pain level reassessed. Patient is alert, oriented x 3, equal unlabored respirations, skin warm/dry/pink. Vital Signs: 16:27 BP 147 / 86; Pulse 89; Resp 18 S; Temp 98; Pulse Ox 99% on R/A; Weight 161.48 kg (R); as6 Height 5 ft. 5 in. (R); Pain 0/10; 17:58 BP 121 / 70; Pulse 75; Resp 19 S; Pulse Ox 95% on R/A; as6 16:27 Body Mass Index 59.24 (161.48 kg, 165.1 cm) as6 16:27 Pain Scale: Adult as6 ED Course: 16:25 Patient arrived in ED. rn 16:25 Junito Sutton MD is Attending Physician. rn 16:27 Smooth Wilson RN is Primary Nurse. as6 16:27 Arm band placed on. as6 16:30 Triage completed. as6 16:33 Bed in low position. Call light in reach. Side rails up X 1. Pulse ox on. NIBP on. as6 16:51 Strep Sent. bc6 16:51 Flu Sent. bc6 16:51 SARS RAPID Sent. bc6 16:52 CBC with Diff Sent. bc6 16:52 CMP Sent. bc6 16:52 Lipase Sent. bc6 16:52 Test, Urine Sent. bc6 16:52 Urinalysis w/ reflexes Sent. bc6 16:52 Initial lab(s) drawn, by de, sent to lab. Urine collected: clean catch specimen, COVID bc6 swab sent to lab. Flu and/or RSV swab sent to lab. Strep swab sent to lab. Inserted saline lock: 20 gauge in right antecubital area, using aseptic technique. Blood collected. 17:57 Provided Education on: follow up. as6 17:57 No provider procedures requiring assistance completed. IV discontinued, intact, as6 bleeding controlled, No redness/swelling at site. Pressure dressing applied. Administered Medications: 17:07 Drug: NS 0.9% IV 1000 ml IV at 1 bolus Per protocol; 1000 mL bolus Route: IV; Rate: 1 as6 bolus; Site: right antecubital; 17:56 Follow up: Response: No adverse reaction; IV Status: Completed infusion; IV Intake: as6 1000ml 17:07 Drug: Famotidine IVP 20 mg IVP once; dilute with 10 mL 0.9% NaCl; give over 2 minutes as6 Route: IVP; Site: right antecubital; 17:57 Follow up: Response: No adverse reaction as6 17:07 Drug: Ondansetron IVP 4 mg IVP once; over 2 minutes Route: IVP; Site: right antecubital;as6 17:56 Follow up: Response: No adverse reaction as6 Medication: 16:33 VIS not applicable for this client. as6 Intake: 17:56 IV: 1000ml; Total: 1000ml. as6 Outcome: 17:45 Discharge ordered by rn 17:57 Discharged to home ambulatory, as6 17:57 Condition: stable 17:57 Discharge instructions given to patient, Instructed on discharge instructions, follow up and referral plans. medication usage, Demonstrated understanding of instructions, follow-up care, medications, Prescriptions given X 3, 17:58 Patient left the ED. as6 Signatures: Junito Sutton MD MD rn Slawson, Ashby, RN RN as6 Shannon [facility]
[2023-08-27 18:47] VITALS: BP 147/86; TEMP 98; O2SAT 99
== END 2023-08-27 17:58 | disposition home or self-care (01) ==
LOC: ER 16:22
DX: R42 Dizziness and giddiness (principal); R11.0 Nausea; Z11.52 Encounter for screening for COVID-19
CPT/HCPCS: 36415; 80053; 81001; 81025; 83690; 85025; 87070; 87081; 87086; 87088; 87804; 87811; 96361; 96374; 96375; 99284; J2405; J7030

== ENCOUNTER 2023-09-15 20:56 | Emergency (ER) | payer SELFPAY ==
--- OUTSIDE RECORDS SUMMARY | 2023-09-15 20:59 | XMS REPORT | Continuity of Care Document ---
Author Name Unknown Address [address] [place] [address] thconnect Address [address] [place] [address] Care Team Providers Care Letter Carrier Name Role Phone Unavailable Unavailable Unavailable
[2023-09-15] MEDS ORDERED: NA CHLORIDE 0.9% 1,000 ML ONE (21:13)
[2023-09-15] MEDS ORDERED: ASPIRIN 81 MG CHEWABLE TABLET ONE (21:13)
[2023-09-15 21:27] LABS: Absolute Basophils 0.1 K/uL (0-0.5); Absolute Eosinophils 0.6 K/uL (0-0.5); Absolute Lymphocytes (CBC) 2.8 K/uL (0.7-4.9); Absolute Monocytes 0.5 K/uL (0.1-1.3); Absolute Neutrophil 5.6 K/uL (1.8-8.0); Eosinophils % 5.9 % (0-4.4); Hematocrit 33.5 % (36.0-45.0); Hemoglobin 11.1 g/dL (12.0-15.0); Lymphocytes % 29.3 % (15.3-44.8); MCH 29.9 pg (27.0-35.0); MCHC 33.3 g/dL (32.0-36.0); MCV 89.8 fL (80-100); MPV 7.9 fL (7.6-11.3); Monocytes % 5.4 % (3.3-12.3); Neutrophils % 58.4 % (41.7-73.7); Nucleated Red Blood Cells % 0.1 % (0-0); Platelets 321 thou/uL (152-406); RBC Red Blood Cell Count 3.73 M/uL (3.86-4.86); Red Cell Distribution Width 14.7 % (12.1-15.2)
[2023-09-15 21:46] LABS: ALT/SGPT 43 U/L (13-56); AST/SGOT 37 U/L (15-37); Albumin 3.5 g/dL (3.4-5.0); Albumin/Globulin Ratio 0.9 (1.1-1.8); Alkaline Phosphatase 52 U/L (45-117); Anion Gap 8.6 mEq/L (5.0-15.0); BUN Blood Urea Nitrogen 13 mg/dL (7-18); Bicarbonate 30 mEq/L (21-32); Bilirubin Total 0.3 mg/dL (0.2-1.0); Globulin 3.8 g/dL (2.3-3.5); Glomerular Filtration Rate 65 ml/min (=/>90); Glucose Level 104 mg/dL (74-106); Lipase 40 U/L (13-75); Magnesium 2.2 mg/dL (1.6-2.4); NT PRO-BNP 7 pg/mL (<125); Potassium 3.6 mEq/L (3.5-5.1); Protein, Total 7.3 g/dL (6.4-8.2); Sodium Level 138 mEq/L (136-145); Troponin High Sensitivity 3.6 pg/mL (<58.9)
[2023-09-15 21:47] LABS: Bilirubin Direct < 0.1 mg/dL (0-0.2); Bilirubin Indirect, Calculated ND mg/dL (0.2-0.8)
--- NOTE | 2023-09-15 21:53 | RAD REPORT ---
EXAM DESCRIPTION: Rosario Single View09/15/2023 9:41 pm CLINICAL HISTORY: Chest pain COMPARISON: July 2023 FINDINGS: A few areas of subsegmental atelectasis within right lung base. Left lung appears clear. The heart is mildly to moderately enlarged
[2023-09-15] MEDS ORDERED: LORazepam 2 MG/ML VIAL ONE (23:06)
--- NOTE | 2023-09-15 23:38 | ER ---
Nurse's Notes [facility] Name: Rachael Knox Age: 38 yrs Sex: Female : 1985 Arrival Date: 09/15/2023 Time: 20:56 Bed 7 Private MD: Diagnosis: Anxiety disorder, unspecified;Chest pain, unspecified;Morbid (severe) obesity due to excess calories;Atelectasis Presentation: 09/14 21:05 Chief complaint: Patient states: I have been having bad anxiety for three days. bm8 Coronavirus screen: At this time, the client does not indicate any symptoms associated with coronavirus-19. Ebola Screen: Patient negative for fever greater than or equal to 101.5 degrees Fahrenheit, and additional compatible Ebola Virus Disease symptoms Patient denies exposure to infectious person. Patient denies travel to an Ebola-affected area in the 21 days before illness onset. No symptoms or risks identified at this time. Initial Sepsis Screen: Does the patient meet any 2 criteria? No. Patient's initial sepsis screen is negative. Does the patient have a suspected source of infection? No. Patient's initial sepsis screen is negative. Risk Assessment: Do you want to hurt yourself or someone else? Patient reports no desire to harm self or others. Onset of symptoms was September 12, 2023 at 08:00. 21:05 Method Of Arrival: EMS: [facility] bm8 21:05 Acuity: DARSHAN 3 bm8 Triage Assessment: 21:07 General: Appears in no apparent distress. comfortable, Behavior is calm, cooperative, bm8 appropriate for age. Pain: Complains of pain in chest Pain does not radiate. Pain currently is 8 out of 10 on a pain scale. Quality of pain is described as pressure. EENT: No deficits noted. No signs and/or symptoms were reported regarding the EENT system. Neuro: No deficits noted. Level of Consciousness is awake, alert, obeys commands, Oriented to person, place, time, situation, Appropriate for age. Cardiovascular: Reports chest pain, Heart tones S1 S2 present Capillary refill < 3 seconds Patient's skin is warm and dry. Pulses are all present. Rhythm is sinus rhythm. Respiratory: Airway is patent Respiratory effort is even, unlabored, Respiratory pattern is regular, symmetrical, Breath sounds are clear bilaterally. GI: No deficits noted. No signs and/or symptoms were reported involving the gastrointestinal system. : No deficits noted. No signs and/or symptoms were reported regarding the genitourinary system. Derm: No deficits noted. No signs and/or symptoms reported regarding the dermatologic system. Musculoskeletal: No deficits noted. No signs and/or symptoms reported regarding the musculoskeletal system. 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 - Infectious Disease History:: Denies. - Social history:: Smoking status: Patient denies any tobacco usage or history of. Patient/guardian denies using alcohol, street drugs, IV drugs, tobacco products. - Family history:: not pertinent. Screenin:12 [facility] ED Fall Risk Assessment (Adult) History of falling in the last 3 months, bm8 including since admission No falls in past 3 months (0 pts) Confusion or Disorientation No (0 pts) Intoxicated or Sedated No (0 pts) Impaired Gait No (0 pts) Mobility Assist Device Used No (0 pt) Altered Elimination No (0 pt) Score/Fall Risk Level 0 - 2 = Low Risk Oriented to surroundings, Maintained a safe environment, Educated pt \T\ family on fall prevention, incl call for assistance when getting out of bed. Abuse screen: Denies threats or abuse. Nutritional screening: No deficits noted. Tuberculosis screening: No symptoms or risk factors identified. Assessment: 21:12 Reassessment: see triage assessment. bm8 22:00 General: Appears in no apparent distress. comfortable, Behavior is calm, cooperative, bm8 appropriate for age. Pain: Complains of pain in chest Pain currently is 4 out of 10 on a pain scale. Quality of pain is described as pressure. Neuro: No deficits noted. Level of Consciousness is awake, alert, obeys commands, Oriented to person, place, time, situation, Appropriate for age. Cardiovascular: Heart tones S1 S2 present Capillary refill < 3 seconds Patient's skin is warm and dry. Rhythm is sinus rhythm. Respiratory: No deficits noted. Airway is patent Respiratory effort is even, unlabored, Respiratory pattern is regular, symmetrical. 23:35 Reassessment: Patient appears in no apparent distress at this time. No changes from bm8 previously documented assessment. Patient and/or family updated on plan of care and expected duration. Pain level reassessed. Patient is alert, oriented x 3, equal unlabored respirations, skin warm/dry/pink. pt reports that pain has improved rating it 4/10 at this time and stating that is acceptable Patient states feeling better. Patient states symptoms have improved. Vital Signs: 21:05 BP 121 / 78; Pulse 90; Resp 18; Temp 98.4; Pulse Ox 91% on R/A; Pain 8/10; bm8 22:00 BP 115 / 79; Pulse 84; Resp 12; Temp 98.4; Pulse Ox 95% on 2.5 lpm NC; Pain 4/10; bm8 23:35 BP 114 / 79; Pulse 78; Resp 12; Temp 98.4; Pulse Ox 92% on R/A; Pain 4/10; bm8 21:05 Pain Scale: Adult bm8 22:00 Pain Scale: Adult bm8 23:35 Pain Scale: Adult bm8 [place] Coma Score: 21:12 Eye Response: spontaneous(4). Motor Response: obeys commands(6). Verbal Response: bm8 oriented(5). Total: 15. 23:35 Eye Response: spontaneous(4). Motor Response: obeys commands(6). Verbal Response: bm8 oriented(5). Total: 15. ED Course: 21:03 Patient arrived in ED. km8 21:04 Izaiah Riggins RN is Primary Nurse. bm8 21:06 Kang Gifford MD is Attending Physician. ze 21:07 Triage completed. bm8 21:07 Arm band placed on right wrist. bm8 21:12 Patient has correct armband on for positive identification. Placed in gown. Bed in low bm8 position. Call light in reach. Side rails up X2. Client placed on continuous cardiac and pulse oximetry monitoring. NIBP monitoring applied. monitoring analyst on. Pulse ox on. NIBP on. Door closed. Noise minimized. Visitors limited. Warm blanket given. Verbal reassurance given. 21:12 No provider procedures requiring assistance completed. Inserted saline lock: 20 gauge bm8 in right antecubital area, using aseptic technique. Blood collected. 21:43 XRAY Chest (1 view) In Process Unspecified. EDMS 22:28 CT Chest For PE Angio In Process Unspecified. EDMS 23:05 Troponin HS: 11 pm Sent. cm10 23:35 Provided Education on: post er care and need for follow up with pcp. bm8 23:35 IV discontinued, intact, bleeding controlled, No redness/swelling at site. Pressure bm8 dressing applied. 23:37 Jeb Rodas MD is Referral Physician. ze Administered Medications: 21:17 Drug: NS 0.9% IV 1000 ml IV at 1 bolus Per protocol; 1000 mL bolus Route: IV; Rate: 1 bm8 bolus; Site: right antecubital; 22:04 Follow up: IV Status: Completed infusion; IV Intake: 1000ml bm8 22:04 Follow up: Response: No adverse reaction bm8 21:17 Drug: Aspirin PO Chewable Tablet 162 mg PO once Route: PO; bm8 22:04 Follow up: Response: No adverse reaction bm8 23:09 Drug: Ativan IVP 1 mg IVP once Route: IVP; Site: right antecubital; km8 23:43 Follow up: Response: No adverse reaction bm8 Medication: 21:12 VIS not applicable for this client. bm8 Intake: 22:04 IV: 1000ml; Total: 1000ml. bm8 Outcome: 23:35 Discharged to home ambulatory, bm8 23:35 Condition: stable 23:35 Discharge instructions given to patient, Instructed on discharge instructions, follow up and referral plans. medication usage, safety practices, Demonstrated understanding of instructions, follow-up care, medications, Prescriptions given X 2, 23:37 Discharge ordered by . ze 23:48 Patient left the ED. bm8 Signatures: Dispatcher [employer] Kang Singleton MD MD cha Martinez, Clarissa, RN RN cm10 Rae [place] RN RN km8 Izaiah Riggins RN RN bm8
--- NOTE | 2023-09-15 23:38 | EDPHYS ---
Physician Documentation [facility] Name: Rachael Knox Age: 38 yrs Sex: Female : 1985 Arrival Date: 09/15/2023 Time: 20:56 Bed 7 Private MD: ED Physician Kang Gifford HPI: 09/14 21:35 This 38 yrs old Female presents to ER via EMS with complaints of Anxiety. ze 21:35 The patient presents to the emergency department with anxiety, depression. Onset: The ze symptoms/episode began/occurred 3 day(s) ago. Past psychiatric history: Prior diagnosis: bipolar disorder, anxiety. cp , anxious x 3 days. The pain does not radiate. Associated signs and symptoms: Pertinent positives; anxiety. 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 - Infectious Disease History:: Denies. - Social history:: Smoking status: Patient denies any tobacco usage or history of. Patient/guardian denies using alcohol, street drugs, IV drugs, tobacco products. - Family history:: not pertinent. ROS: 21:35 Constitutional: Negative for fever, chills, and weight loss, Eyes: Negative for injury, ze pain, redness, and discharge, ENT: Negative for injury, pain, and discharge, Neck: Negative for injury, pain, and swelling, Respiratory: Negative for shortness of breath, cough, wheezing, and pleuritic chest pain, Abdomen/GI: Negative for abdominal pain, nausea, vomiting, diarrhea, and constipation, Back: Negative for injury and pain, : Negative for injury, bleeding, discharge, and swelling, MS/Extremity: Negative for injury and deformity, Skin: Negative for injury, rash, and discoloration, Neuro: Negative for headache, weakness, numbness, tingling, and seizure, Psych: Negative for depression, anxiety, suicide ideation, homicidal ideation, and hallucinations, Allergy/Immunology: Negative for hives, rash, and allergies, Endocrine: Negative for neck swelling, polydipsia, polyuria, polyphagia, and marked weight changes, Hematologic/Lymphatic: Negative for swollen nodes, abnormal bleeding, and unusual bruising, 21:35 Cardiovascular: Positive for chest pain, Exam: 21:35 Constitutional: This is a well developed, well nourished patient who is awake, alert, ze and in no acute distress. Head/Face: Normocephalic, atraumatic. Eyes: Pupils equal round and reactive to light, extra-ocular motions intact. Lids and lashes normal. Conjunctiva and sclera are non-icteric and not injected. Cornea within normal limits. Periorbital areas with no swelling, redness, or edema. ENT: Nares patent. No nasal discharge, no septal abnormalities noted. Tympanic membranes are normal and external auditory canals are clear. Oropharynx with no redness, swelling, or masses, exudates, or evidence of obstruction, uvula midline. Mucous membranes moist. Neck: Trachea midline, no thyromegaly or masses palpated, and no cervical lymphadenopathy. Supple, full range of motion without nuchal rigidity, or vertebral point tenderness. No Meningismus. Chest/axilla: Normal chest wall appearance and motion. Nontender with no deformity. No lesions are appreciated. Cardiovascular: Regular rate and rhythm with a normal S1 and S2. No gallops, murmurs, or rubs. Normal PMI, no JVD. No pulse deficits. Respiratory: Lungs have equal breath sounds bilaterally, clear to auscultation and percussion. No rales, rhonchi or wheezes noted. No increased work of breathing, no retractions or nasal flaring. Abdomen/GI: Soft, non-tender, with normal bowel sounds. No distension or tympany. No guarding or rebound. No evidence of tenderness throughout. Back: No spinal tenderness. No costovertebral tenderness. Full range of motion. Skin: Warm, dry with normal turgor. Normal color with no rashes, no lesions, and no evidence of cellulitis. MS/ Extremity: Pulses equal, no cyanosis. Neurovascular intact. Full, normal range of motion. Neuro: Awake and alert, GCS 15, oriented to person, place, time, and situation. Cranial nerves II-XII grossly intact. Motor strength 5/5 in all extremities. Sensory grossly intact. Cerebellar exam normal. Normal gait. Psych: Awake, alert, with orientation to person, place and time. Behavior, mood, and affect are within normal limits. 21:35 ECG was reviewed by the Attending Physician. Vital Signs: 21:05 BP 121 / 78; Pulse 90; Resp 18; Temp 98.4; Pulse Ox 91% on R/A; Pain 8/10; bm8 22:00 BP 115 / 79; Pulse 84; Resp 12; Temp 98.4; Pulse Ox 95% on 2.5 lpm NC; Pain 4/10; bm8 23:35 BP 114 / 79; Pulse 78; Resp 12; Temp 98.4; Pulse Ox 92% on R/A; Pain 4/10; bm8 21:05 Pain Scale: Adult bm8 22:00 Pain Scale: Adult bm8 23:35 Pain Scale: Adult bm8 [place] Coma Score: 21:12 Eye Response: spontaneous(4). Motor Response: obeys commands(6). Verbal Response: bm8 oriented(5). Total: 15. 23:35 Eye Response: spontaneous(4). Motor Response: obeys commands(6). Verbal Response: bm8 oriented(5). Total: 15. MDM: 21:06 Patient medically screened. ze 21:38 Differential diagnosis: drug withdrawal. depression, psychosis secondary to ze non-compliance, abnormal EKG, acute myocardial infarction, acute pericarditis, anxiety, coronary artery disease chest wall pain, congestive heart failure Cholelithiasis costochondritis, esophagitis, gastritis, herpes zoster, hiatal hernia, pancreatitis. HEART Score: History: Slightly Suspicious (0), ECG: Non specific repolarization disturbance / LBTB / PM (1), Age: < or = 45 years (0), Risk Factors: > or = 3 Risk factors for atherosclerotic disease (2), [Hypercholesterolemia] [Hypertension] [+ Family HX] [Obesity] Troponin: < or = 1 x Normal Limit (0). YULIA Risk Score: 1 - Three or more CAD risk factors, [Family Hx], [HTN], [Elevated Cholesterol]. Data reviewed: vital signs, nurses notes, lab test result(s), EKG, radiologic studies. Consideration of Admission/Observation Escalation of care including admission/observation considered. I considered the following discharge prescriptions or medication management in the emergency department Medications were administered in the Emergency Department. See MAR. Independent interpretation of the following test(s) in the Emergency Department EKG: See my EKG interpretation above. Test considered but Not performed: Ultrasound no 2 d echo. 09/14 21:10 Order name: Basic Metabolic Panel; Complete Time: 21:50 [facility] 09/14 21:10 Order name: CBC with Diff; Complete Time: 21:50 09/14 21:10 Order name: D-Dimer 09/14 21:10 Order name: LFT's; Complete Time: 21:50 09/14 21:10 Order name: Magnesium; Complete Time: 21:50 09/14 21:10 Order name: NT PRO-BNP; Complete Time: 21:50 09/14 21:10 Order name: PT-INR 09/14 21:10 Order name: Troponin HS; Complete Time: 21:50 09/14 21:10 Order name: Lipase; Complete Time: 21:50 09/14 22:19 Order name: Troponin HS: 11 pm; Complete Time: 23:36 09/14 21:10 Order name: XRAY Chest (1 view); Complete Time: 22:18 09/14 22:19 Order name: CT Chest For PE Angio 09/14 21:10 Order name: Cardiac monitoring; Complete Time: 21:12 09/14 21:10 Order name: EKG - Nurse/Tech; Complete Time: 21:12 09/14 21:10 Order name: IV Saline Lock; Complete Time: 21:12 09/14 21:10 Order name: Labs collected and sent; Complete Time: 21:17 09/14 21:10 Order name: O2 Per Protocol; Complete Time: 21:12 09/14 21:10 Order name: O2 Sat Monitoring; Complete Time: 21:12 [facility] EC:35 Rate is 93 beats/min. Rhythm is regular. QRS Spraggs is Normal. OR interval is normal. QRS ze interval is normal. QT interval is normal. No Q waves. T waves are Normal. No ST changes noted. Clinical impression: NSR w/ Non-specific ST/T Changes and No evidence of ischemia. Interpreted by me. Reviewed by me. Administered Medications: 21:17 Drug: NS 0.9% IV 1000 ml IV at 1 bolus Per protocol; 1000 mL bolus Route: IV; Rate: 1 bm8 bolus; Site: right antecubital; 22:04 Follow up: IV Status: Completed infusion; IV Intake: 1000ml bm8 22:04 Follow up: Response: No adverse reaction bm8 21:17 Drug: Aspirin PO Chewable Tablet 162 mg PO once Route: PO; bm8 22:04 Follow up: Response: No adverse reaction bm8 23:09 Drug: Ativan IVP 1 mg IVP once Route: IVP; Site: right antecubital; km8 23:43 Follow up: Response: No adverse reaction bm8 Disposition Summary: 09/15/23 23:37 Discharge Ordered Notes: Location: Home ze Problem: new ze Symptoms: have improved ze Condition: Stable ze Diagnosis - Anxiety disorder, unspecified ze - Chest pain, unspecified ze - Morbid (severe) obesity due to excess calories ze - Atelectasis ze Followup: ze - With: Private Physician - When: 1 - 2 days - Reason: Recheck today's complaints, Continuance of care, Re-evaluation by your physician Followup: ze - With: Jeb Rodas MD - When: 2 - 3 days - Reason: Recheck today's complaints, Re-evaluation by your physician Discharge Instructions: - Discharge Summary Sheet ze - Nonspecific Chest Pain, Adult ze - Obesity, Adult ze - Aspirin and Your Heart ze - Managing Anxiety, Adult ze Forms: - Medication Reconciliation Form ze - Antibiotic Education ze - Prescription Opioid Use ze - Patient Portal Instructions [facility] - Leadership Thank You Letter [facility] Prescriptions: - Hydroxyzine HCl 25 mg Oral tablet - take 1 tablet ORAL route every 6 hours As needed; 20 tablet; Refills: 0, ze Product Selection Permitted - Toprol XL 25 mg Oral Tablet - take 1 tablet ORAL route once daily; 20 tablet; Refills: 0, Product Selection ze Permitted Signatures: Dispatcher [employer] Kang Singleton MD MD cha Marx, Katie RN RN km8 Izaiah Riggins RN RN bm8 Corrections: (The following items were deleted from the chart) 21:51 21:51 Chest For PE Angio+CT.RAD.BRZ ordered. EDMS EDMS : Troponin High Sensitivity+C.LAB.BRZ ordered. EDMS EDMS : Chest For PE Angio+CT.RAD.BRZ ordered. EDMS EDMS
[2023-09-16 01:05] VITALS: BP 114/79; TEMP 98.4; O2SAT 92
[2023-09-16 12:19] LABS: PT Prothrombin Time 9.8 SECONDS (9.5-12.5); Protime INR 0.8
--- NOTE | 2023-09-16 13:19 | RAD REPORT ---
EXAM DESCRIPTION: CT - Chest For Pe Angio - 09/16/2023 6:17 am CLINICAL HISTORY: Chest pain TECHNIQUE: Chest CTA. 2.0 mm reconstructed axial images were obtained. Coronal and sagittal reformat john images were obtained. Coronal and sagittal MIP images were obtained. DOSE OPTIMIZATION: This facility uses dose optimization techniques as appropriate to perform exams, i ncluding at least one of the following techniques: 1. Automated exposure control. 2. Adjustment of the mA and/or kV according to patient size (this includes techniques or standardized protocols for targeted exams where dose is matched to the indication/reason for exam, i.e. extremiti es or head). 3. Use of iterative reconstructive technique. COMPARISON: None. FINDINGS: Lung Farmer: There is mild atelectasis in the right middle lobe. Mediastinal Structures: No aortic dissection. No pericardial effusion. No adenopathy. Pulmonary Arteries: Normal. Pleural Space: Normal. Axillae: No adenopathy. Upper Abdomen: Normal. Bony Structures: No suspicious lesions. IMPRESSION: 1. No evidence of pulmonary embolism. 2. Mild atelectasis within the right middle lobe, stable. Electronically signed by: John Kuo MD 09/15/2023 10:59 PM CDT Due to temporary technical issues with the PACS/Fluency reporting system, reports are being signed by the in house radiologists without review as a courtesy to insure prompt reporting. The interpreting radiologist is fully responsible for the content of the report.
== END 2023-09-15 23:48 | disposition home or self-care (01) ==
LOC: ER 20:56
DX: F41.9 Anxiety disorder, unspecified (principal); J98.11 Atelectasis; E66.01 Morbid (severe) obesity due to excess calories
CPT/HCPCS: 36415; 71045; 71275; 80048; 80076; 83690; 83735; 83880; 84484; 85025; 85379; 85610; 93005; J7030; Q9967

== ENCOUNTER 2023-11-04 19:17 | Emergency (ER) | payer SELFPAY ==
--- OUTSIDE RECORDS SUMMARY | 2023-11-04 19:20 | XMS REPORT | Continuity of Care Document ---
Author Name Unknown Address [address] [place] [address] [employer] Address [address] [place] [id number] Care Team Providers Care Call Center Specialist Name Role Phone Unavailable Unavailable Unavailable
[2023-11-04] MEDS ORDERED: FENTANYL CITR 100 MCG/2 ML ONE ×2 (21:17→23:22)
[2023-11-04 21:37] LABS: Absolute Basophils 0.1 K/uL (0-0.5); Absolute Eosinophils 0.3 K/uL (0-0.5); Absolute Lymphocytes (CBC) 2.2 K/uL (0.7-4.9); Absolute Monocytes 0.4 K/uL (0.1-1.3); Absolute Neutrophil 5.3 K/uL (1.8-8.0); Eosinophils % 3.8 % (0-4.4); Hematocrit 32.4 % (36.0-45.0); Hemoglobin 10.4 g/dL (12.0-15.0); Lymphocytes % 26.5 % (15.3-44.8); MCH 27.9 pg (27.0-35.0); MPV 8.1 fL (7.6-11.3); Neutrophils % 63.7 % (41.7-73.7); Platelets 305 thou/uL (152-406); RBC Red Blood Cell Count 3.72 M/uL (3.86-4.86); Red Cell Distribution Width 15.6 % (12.1-15.2)
[2023-11-04 21:40] LABS: PT Prothrombin Time 11.7 SECONDS (9.5-12.5); PTT, Activated Partial Thromb 34.4 SECONDS (24.3-36.9); Protime INR 1.07
[2023-11-04 21:56] LABS: Anion Gap 6.3 mEq/L (5.0-15.0); Potassium 3.3 mEq/L (3.5-5.1)
--- NOTE | 2023-11-04 22:06 | RAD REPORT ---
EXAM DESCRIPTION: US - Extremity Nonvascular Complete - 11/04/2023 8:57 pm CLINICAL HISTORY: PAIN COMPARISON: Extrem Venous W Compress Eran dated 07/05/2021 TECHNIQUE: Sonographic grayscale and color flow images of the right breast were obtained. FINDINGS: Targeted evaluation of the area of concern in the retroareolar right breast just lateral t o the nipple reveals a fairly superficial heterogeneous ill-defined ovoid fluid collection measuring 2.1 x 2.0 x 1.4 cm, with internal debris, and adjacent hypervascularity. IMPRESSION: Ill-defined 2.1 cm retroareolar right breast fluid collection, concerning for an abscess or a complicated cyst.
[2023-11-04] MEDS ORDERED: BUPIVACAINE 0.5% PF 10 ML VIAL ONE (22:57)
[2023-11-04] MEDS ORDERED: LIDOCAINE 1% MPF 5 ML VIAL ONE (22:57)
[2023-11-04] MEDS ORDERED: CEFTRIAXONE 2000 MG/VIAL ONE (23:22)
[2023-11-04] MEDS ORDERED: DOXYCYCLINE 100 MG CAP PO ONE (23:22)
--- NOTE | 2023-11-04 23:27 | ER ---
Nurse's Notes [facility] Name: Rachael Knox Age: 38 yrs Sex: Female : 1985 Arrival Date: 11/04/2023 Time: 19:17 Bed 12 Private MD: Diagnosis: Abscess of the breast and nipple-right Presentation: 11/03 19:28 Chief complaint: Patient states: painful lump to right breast that has grown in size. as6 Coronavirus screen: At this time, the client does not indicate any symptoms associated with coronavirus-19. Ebola Screen: No symptoms or risks identified at this time. Initial Sepsis Screen: Does the patient meet any 2 criteria? No. Patient's initial sepsis screen is negative. Does the patient have a suspected source of infection? No. Patient's initial sepsis screen is negative. Risk Assessment: Do you want to hurt yourself or someone else? Patient reports no desire to harm self or others. Onset of symptoms was November 04, 2023. 19:28 Method Of Arrival: Ambulatory as6 19:28 Acuity: DARSHAN 3 as6 Triage Assessment: 19:30 General: Appears in no apparent distress. obese, Behavior is calm, cooperative. Pain: as6 Complains of pain in right breast. Derm: Abscess located on right nipple is quarter sized, has no drainage, is hot to touch, is raised. Historical: - Allergies: 19:29 Bactrim; as6 19:29 mycins; as6 19:29 PENICILLINS; as6 19:29 Sulfa (Sulfonamide Antibiotics); as6 - PMHx: 19:29 Anemia; Anxiety; Asthma; Bipolar disorder; Blood transfusions; cardiac arrest; as6 Hypertension; Hypothyroidism; NIDDM; - PSHx: 19:29 Appendectomy; section; hernia repair; Tonsillectomy; tubal ligation; as6 - Immunization history:: Adult Immunizations not up to date. - Infectious Disease History:: Denies. - Social history:: Smoking status: Patient denies any tobacco usage or history of. Screenin:30 [facility] ED Fall Risk Assessment (Adult) History of falling in the last 3 months, as6 including since admission No falls in past 3 months (0 pts) Confusion or Disorientation No (0 pts) Intoxicated or Sedated No (0 pts) Impaired Gait No (0 pts) Mobility Assist Device Used No (0 pt) Altered Elimination No (0 pt) Score/Fall Risk Level 0 - 2 = Low Risk Oriented to surroundings, Maintained a safe environment, Educated pt \T\ family on fall prevention, incl call for assistance when getting out of bed, Assessed \T\ reinforced patient's understanding of fall precautions. Abuse screen: Denies threats or abuse. Denies injuries from another. Nutritional screening: No deficits noted. Tuberculosis screening: No symptoms or risk factors identified. Assessment: 23:50 Reassessment: Patient appears in no apparent distress at this time. Patient and/or as6 family updated on plan of care and expected duration. Pain level reassessed. Patient is alert, oriented x 3, equal unlabored respirations, skin warm/dry/pink. Patient states symptoms have improved. Vital Signs: 19:28 BP 116 / 88; Pulse 84; Resp 18; Temp 97.5; Pulse Ox 92% ; Weight 158.76 kg; Height 5 as6 ft. 5 in. ; Pain 10/10; 21:00 BP 114 / 63; Pulse 80; Resp 18; Pulse Ox 97% ; as6 23:30 BP 119 / 59; Pulse 62; Resp 16; Pulse Ox 100% ; as6 19:28 Body Mass Index 58.24 (158.76 kg, 165.1 cm) as6 19:28 Pain Scale: Adult as6 ED Course: 19:20 Patient arrived in ED. ra3 19:29 Triage completed. as6 19:30 Arm band placed on left wrist. as6 19:34 Kang Clemente PA is PHCP. cp 19:34 Kei Dover DO is Attending Physician. cp 20:58 Extremity Nonvascular Complete In Process Unspecified. EDMS 21:14 Ptt, Activated Sent. as6 21:14 Protime (+inr) Sent. as6 21:14 Lactate w/ 2H reflex if indic. Sent. as6 21:14 CBC with Diff Sent. as6 21:14 BMP Sent. as6 21:14 Inserted saline lock: 20 gauge in right antecubital area, using aseptic technique. as6 Blood collected. 23:26 Mejia Osborne MD is Referral Physician. cp 23:31 Placed in gown. Bed in low position. Call light in reach. Provided Education on: follow as6 up. 23:31 No provider procedures requiring assistance completed. as6 23:38 Donato Martin MD is Attending Physician. cp 23:50 IV discontinued, intact, bleeding controlled, No redness/swelling at site. Pressure as6 dressing applied. Administered Medications: 21:20 Drug: fentaNYL (PF) IVP 25 mcg IVP once Route: IVP; Site: right antecubital; as6 23:41 Follow up: Response: No adverse reaction as6 23:14 Not Given (Physician Discretion): fentanyl (pf)25 mcg IVP once cp 23:20 Not Given (Physician Discretion): lidocaine(1 %) 5 ml 5 ml Infiltration once; to bedsidejb4 23:20 Not Given (Physician Discretion): bupivacaine(0.5 %) 10 ml 10 ml Infiltration once jb4 23:29 Drug: Rocephin IV 2 grams IV at calculated rate once; Given slow IV push per pharmarcy as6 instructions Route: IV; Rate: calculated rate; Site: right antecubital; 23:41 Follow up: Response: No adverse reaction; IV Status: Completed infusion; IV Intake: [id number] 23:29 Drug: Doxycycline PO 200 mg PO once Route: PO; as6 23:41 Follow up: Response: No adverse reaction as6 23:29 Drug: fentaNYL (PF) IVP 50 mcg IVP once Route: IVP; Site: right antecubital; as6 23:41 Follow up: Response: No adverse reaction as6 Medication: 23:31 VIS not applicable for this client. as6 Intake: 23:41 IV: 10ml; Total: 10ml. as6 Outcome: 23:26 Discharge ordered by MD. cp 23:40 Discharged to home ambulatory, as6 23:40 Condition: stable 23:50 Discharge instructions given to patient, Instructed on discharge instructions, follow as6 up and referral plans. medication usage, Demonstrated understanding of instructions, follow-up care, medications, Prescriptions given X 3, 23:51 Patient left the ED. as6 Signatures: Dispatcher [employer] EDMS Kang Clemente PA PA cp Slawson, Ashby RN RN as6 Kaley Montes De Oca ra3 Fredrick Galicia RN jb4
--- NOTE | 2023-11-04 23:27 | EDPHYS ---
Physician Documentation [facility] Name: Rachael Knox Age: 38 yrs Sex: Female : 1985 Arrival Date: 11/04/2023 Time: 19:17 Bed 12 Private MD: ED Physician Donato Martin HPI: 11/03 20:35 This 38 yrs old Female presents to ER via Ambulatory with complaints of Breast cp Lump - painful and hot sensation. 20:35 The patient presents with an abscess of the right nipple of right breast. cp 20:35 Description: hot, swollen, tense, painful. cp 20:35 Onset: The symptoms/episode began/occurred today. Associated signs and symptoms: cp Pertinent negatives: discharge, drainage, fever, shortness of breath, vomiting. Severity of symptoms: in the emergency department the symptoms are unchanged, despite home interventions. Historical: - Allergies: 19:29 Bactrim; as6 19:29 mycins; as6 19:29 PENICILLINS; as6 19:29 Sulfa (Sulfonamide Antibiotics); as6 - PMHx: 19:29 Anemia; Anxiety; Asthma; Bipolar disorder; Blood transfusions; cardiac arrest; as6 Hypertension; Hypothyroidism; NIDDM; - PSHx: 19:29 Appendectomy; section; hernia repair; Tonsillectomy; tubal ligation; as6 - Immunization history:: Adult Immunizations not up to date. - Infectious Disease History:: Denies. - Social history:: Smoking status: Patient denies any tobacco usage or history of. ROS: 20:40 Eyes: Negative for injury, pain, redness, and discharge, cp 20:40 Constitutional: Negative for body aches, chills, fever, poor PO intake, 20:40 Cardiovascular: Negative for palpitations, 20:40 Respiratory: Negative for cough, shortness of breath, wheezing, 20:40 Abdomen/GI: Negative for abdominal pain, vomiting, diarrhea, constipation, 20:40 MS/extremity: Positive for right breast swelling and pain, 20:40 Skin: Negative for rash, 20:40 Neuro: Negative for altered mental status, dizziness, headache, 20:40 All other systems are negative, Exam: 20:45 Constitutional: The patient appears in no acute distress, alert, awake, cp non-diaphoretic, non-toxic, well developed, well nourished, obese, uncomfortable, 20:45 Head/Face: Normocephalic, atraumatic. cp 20:45 Eyes: Periorbital structures: appear normal, Conjunctiva: normal, no exudate, no injection, Sclera: no appreciated abnormality, Lids and lashes: appear normal, bilaterally, 20:45 ENT: External ear(s): are unremarkable, Nose: is normal, Mouth: Lips: moist, Oral mucosa: moist, Posterior pharynx: is normal, airway is patent, no erythema, no exudate, 20:45 Neck: ROM/movement: is normal, is supple, without pain, no range of motions limitations, 20:45 Chest/axilla: Breasts: right breast tender, palpable mass adjacent to areola, minimal erythema, nipple retraction, marked tenderness to palpation, 20:45 Cardiovascular: Rate: normal, Rhythm: regular, 20:45 Respiratory: the patient does not display signs of respiratory distress, Respirations: normal, no use of accessory muscles, no retractions, labored breathing, is not present, Breath sounds: are clear throughout, no decreased breath sounds, no stridor, no wheezing, 20:45 Abdomen/GI: Inspection: abdomen appears normal, 20:45 Back: pain, is absent, ROM is normal, 20:45 Neuro: Orientation: to person, place \T\ time. Mentation: is normal, Vital Signs: 19:28 BP 116 / 88; Pulse 84; Resp 18; Temp 97.5; Pulse Ox 92% ; Weight 158.76 kg; Height 5 as6 ft. 5 in. ; Pain 10/10; 21:00 BP 114 / 63; Pulse 80; Resp 18; Pulse Ox 97% ; as6 23:30 BP 119 / 59; Pulse 62; Resp 16; Pulse Ox 100% ; as6 19:28 Body Mass Index 58.24 (158.76 kg, 165.1 cm) as6 19:28 Pain Scale: Adult as6 MDM: 19:34 Patient medically screened. cp 23:25 Data reviewed: vital signs, nurses notes, lab test result(s), radiologic studies, cp ultrasound, I have discussed the patient's presentation/case with the attending Emergency Department Physician; and as a result, I will discharge patient, administer antibiotics Rocephin, doxycycline. 23:25 Differential diagnosis: abscess, cellulitis, cyst, mass. I considered the following cp discharge prescriptions or medication management in the emergency department Medications were administered in the Emergency Department. See MAR. Care significantly affected by the following chronic conditions: Hypertension, Obesity. Counseling: I had a detailed discussion with the patient and/or guardian regarding the historical points, exam findings, and any diagnostic results supporting the discharge/admit diagnosis, lab results, radiology results, the need for outpatient follow up, a general surgeon, to return to the emergency department if symptoms worsen or persist or if there are any questions or concerns that arise at home. Response to treatment: the patient's symptoms have mildly improved after treatment, and as a result, I will discharge patient. 11/03 20:28 Order name: CBC with Diff; Complete Time: 22: 11/03 22:26 Interpretation: Normal except: RBC 3.72; HGB 10.4; HCT 32.4; RDW 15.6. 11/03 20:28 Order name: Lactate w/ 2H reflex if indic.; Complete Time: 22: 11/03 20:28 Order name: Protime (+inr); Complete Time: 22:26 cp 11/03 20:28 Order name: Ptt, Activated; Complete Time: 22: 11/03 20:28 Order name: BMP; Complete Time: 22:26 11/03 22:27 Interpretation: Normal except: K 3.3; GLUC 138; CRE 1.08; GFR 67. 11/03 20:58 Order name: Extremity Nonvascular Complete; Complete Time: 22:26 EDMS 11/03 22:27 Interpretation: Report reviewed. 11/03 20:28 Order name: Accucheck; Complete Time: 21:14 11/03 20:28 Order name: Cardiac monitoring; Complete Time: 21:14 11/03 20:28 Order name: IV Saline Lock - Large Bore; Complete Time: 21:14 11/03 20:28 Order name: Labs collected and sent; Complete Time: 21:14 11/03 20:28 Order name: O2 Per Protocol; Complete Time: 21:14 11/03 20:28 Order name: O2 Sat Monitoring; Complete Time: 21:14 11/03 20:28 Order name: Vital Signs; Complete Time: 21:14 06/12 22:42 Order name: I\T\D Setup; Complete Time: 23:30 cp Administered Medications: 21:20 Drug: fentaNYL (PF) IVP 25 mcg IVP once Route: IVP; Site: right antecubital; as6 23:41 Follow up: Response: No adverse reaction as6 23:14 Not Given (Physician Discretion): fentanyl (pf)25 mcg IVP once cp 23:20 Not Given (Physician Discretion): lidocaine(1 %) 5 ml 5 ml Infiltration once; to bedsidejb4 23:20 Not Given (Physician Discretion): bupivacaine(0.5 %) 10 ml 10 ml Infiltration once jb4 23:29 Drug: Rocephin IV 2 grams IV at calculated rate once; Given slow IV push per pharmarcy as6 instructions Route: IV; Rate: calculated rate; Site: right antecubital; 23:41 Follow up: Response: No adverse reaction; IV Status: Completed infusion; IV Intake: [id number] 23:29 Drug: Doxycycline PO 200 mg PO once Route: PO; as6 23:41 Follow up: Response: No adverse reaction as6 23:29 Drug: fentaNYL (PF) IVP 50 mcg IVP once Route: IVP; Site: right antecubital; as6 23:41 Follow up: Response: No adverse reaction as6 Disposition Summary: 11/04/23 23:26 Discharge Ordered Notes: Location: Home cp Problem: new cp Symptoms: have improved cp Condition: Stable cp Diagnosis - Abscess of the breast and nipple - right cp Followup: cp - With: Mejia Osborne MD - When: 2 - 3 days - Reason: Recheck today's complaints Discharge Instructions: - Discharge Summary Sheet cp - Skin Abscess cp Forms: - Medication Reconciliation Form cp - Antibiotic Education cp - Prescription Opioid Use cp - Patient Portal Instructions cp - Leadership Thank You Letter cp Prescriptions: - Cephalexin 500 mg Oral Capsule - take 1 capsule ORAL route every 8 hours for 10 days; 30 capsule; Refills: 0, cp Product Selection Permitted - Ultracet 37.5-325 mg Oral tablet - take 1 tablet ORAL route every 6 hours - for up to 5 days; do not exceed 8 cp tablets per day.; 20 tablet; Refills: 0, Product Selection Permitted - Doxycycline Hyclate 100 mg Oral Tablet - take 1 tablet ORAL route every 12 hours; 20 tablet; Refills: 0, Product cp Selection Permitted Addendum: 11/06/2023 03:47 Co-signature as Attending Physician, Donato Martin MD I agree with the assessment s p4 and plan of care. I reviewed the patient's care provided by the Advanced Practice Provider and agree with the diagnosis and treatment plan. Signatures: Dispatcher [employer] EDMS Kang Clemente PA PA cp Smooth Wilson RN RN as6 Donato Martin MD MD sp4 Fredrick Galicia RN jb4 Corrections: (The following items were deleted from the chart) 11/03 20:29 20:28 CBC+H.LAB.BRZ ordered. EDMS EDMS 20:29 20:29 LACTATE+C.LAB.BRZ ordered. EDMS EDMS 20:29 20:29 PROTIME (+INR)+COAG.LAB.BRZ ordered. EDMS EDMS 20:29 20:29 PTT, ACTIVATED+COAG.LAB.BRZ ordered. EDMS EDMS 20:29 20:29 BASIC METABOLIC PANEL+C.LAB.BRZ ordered. EDMS EDMS 20:58 20:29 Extrmty Nonvasular Limited+US.RAD.BRZ ordered. EDMS EDMS 11/04 20:40 20:39 MS/extremity: Positive for right breast swelling and pain, cp cp
[2023-11-05 00:07] VITALS: BP 119/59; TEMP 97.5; O2SAT 100
== END 2023-11-04 23:51 | disposition home or self-care (01) ==
LOC: ER 19:17
DX: N61.1 Abscess of the breast and nipple (principal)
CPT/HCPCS: 36415; 76881; 80048; 83605; 85025; 85610; 85730; 96374; 96375; 99284; J0696; J2001; J3010

== ENCOUNTER 2024-01-11 21:27 | Emergency (ER) | payer SELFPAY ==
[2024-01-11 22:23] LABS: Absolute Basophils 0.1 K/uL (0-0.5); Absolute Eosinophils 0.5 K/uL (0-0.5); Absolute Lymphocytes (CBC) 2.9 K/uL (0.7-4.9); Absolute Monocytes 0.5 K/uL (0.1-1.3); Absolute Neutrophil 4.6 K/uL (1.8-8.0); Basophils % 1.1 % (0-1.3); Eosinophils % 6.2 % (0-4.4); Hematocrit 31.6 % (36.0-45.0); Hemoglobin 10.2 g/dL (12.0-15.0); Lymphocytes % 33.6 % (15.3-44.8); MCH 27.3 pg (27.0-35.0); MCHC 32.2 g/dL (32.0-36.0); MCV 84.6 fL (80-100); MPV 8.3 fL (7.6-11.3); Monocytes % 5.9 % (3.3-12.3); Neutrophils % 53.2 % (41.7-73.7); Nucleated Red Blood Cells % 0.1 % (0-0); Platelets 302 thou/uL (152-406); RBC Red Blood Cell Count 3.73 M/uL (3.86-4.86); Red Cell Distribution Width 15.7 % (12.1-15.2)
[2024-01-11 22:43] LABS: Anion Gap 7.6 mEq/L (5.0-15.0); BUN Blood Urea Nitrogen 12 mg/dL (7-18); Bicarbonate 31 mEq/L (21-32); Glomerular Filtration Rate 66 ml/min (=/>90); Glucose Level 104 mg/dL (74-106); Potassium 3.6 mEq/L (3.5-5.1); Sodium Level 138 mEq/L (136-145)
[2024-01-11 22:49] LABS: Troponin High Sensitivity < 3.0 pg/mL (<58.9)
--- NOTE | 2024-01-12 00:24 | EDPHYS ---
Physician Documentation [facility] Name: Rachael Knox Age: 38 yrs Sex: Female : 1985 Arrival Date: 01/11/2024 Time: 21:27 Bed 5 Private MD: ED Physician Mil Lance HPI: 01/10 21:48 This 38 yrs old Female presents to ER via Unassigned with complaints of chest kb pain, shortness of breath. 21:48 Pt is a 38 year old female who presents for chest pain and shortness of breath that kb started 2 days ago. States the shortness of breath is worse with exertion. Has been using anxiety medication and inhalers without relief. Denies cough, congestion, fever. . 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 - Infectious Disease History:: Denies. - Social history:: Smoking status: Patient denies any tobacco usage or history of. ROS: 21:50 Constitutional: As per HPI kb Exam: 21:50 Constitutional: This is a well developed, well nourished patient who is awake, alert, kb and in no acute distress. Head/Face: Normocephalic, atraumatic. ENT: Moist Mucous membranes Cardiovascular: Regular rate Respiratory: Respirations even and unlabored. No increased work of breathing. Talking in full sentences Abdomen/GI: Soft, non-tender. No distention Skin: Warm, dry with normal turgor. Normal color. MS/ Extremity: Pulses equal, no cyanosis. Neurovascular intact. Full, normal range of motion. Neuro: Awake and alert, GCS 15, oriented to person, place, time, and situation. Moves all extremities. Normal gait. 22:48 ECG was reviewed by the Attending Physician. kb Vital Signs: 22:29 BP 130 / 85; Pulse 75; Resp 16; Temp 97.7(TE); Pulse Ox 94% on R/A; Weight 161.48 kg; jb4 Height 5 ft. 5 in. ; 22:51 BP 116 / 80; Pulse 73; Resp 16; Pulse Ox 94% on R/A; jb4 01/11 00:00 BP 129 / 82; Pulse 72; Resp 18; Pulse Ox 91% ; vc1 01/10 22:29 Body Mass Index 59.24 (161.48 kg, 165.1 cm) jb4 MDM: 01/10 21:37 Patient medically screened. kb 21:50 Data reviewed: vital signs, nurses notes. kb 01/11 00:22 Differential diagnosis: Anxiety Reaction asthma, acute mi, abnormal ekg. Test kb considered but Not performed: CT: ct chest considered but d-dimer negative. Counseling: I had a detailed discussion with the patient and/or guardian regarding the historical points, exam findings, and any diagnostic results supporting the discharge/admit diagnosis, lab results, radiology results, the need for outpatient follow up, a family practitioner, to return to the emergency department if symptoms worsen or persist or if there are any questions or concerns that arise at home. 01/10 21:41 Order name: Basic Metabolic Panel; Complete Time: 22:52 kb 01/10 21:41 Order name: CBC with Diff; Complete Time: 22:25 kb 01/10 21:41 Order name: D-Dimer; Complete Time: 22:32 kb 01/10 21:41 Order name: Troponin HS; Complete Time: 22:52 kb 01/10 21:41 Order name: XRAY Chest (1 view) kb 01/10 21:41 Order name: Cardiac monitoring; Complete Time: 22:08 kb 01/10 21:41 Order name: EKG - Nurse/Tech; Complete Time: 22:08 kb 01/10 21:41 Order name: IV Saline Lock; Complete Time: 22:08 kb 01/10 21:41 Order name: Labs collected and sent; Complete Time: 22:08 kb 01/10 21:41 Order name: O2 Per Protocol; Complete Time: 22:08 kb 01/10 21:41 Order name: O2 Sat Monitoring; Complete Time: 22:08 kb EC/19 22:48 Rate is 81 beats/min. Rhythm is regular. QRS [place] is Normal. CT interval is normal at kb 150 msec. QRS interval is normal at 100 msec. QT interval is normal at 494 msec. Administered Medications: 01/11 00:42 Drug: Ketorolac IVP 15 mg IVP once Route: IVP; Site: right antecubital; jb4 00:42 Follow up: Response: Medication administered at discharge. jb4 Disposition: 02:41 Co-signature as Attending Physician, Mil Lance MD I reviewed the patient's care rt provided by the Advanced Practice Provider and agree with the diagnosis and treatment plan. Disposition Summary: 01/12/24 00:23 Discharge Ordered Notes: Location: Home kb Condition: Stable kb Diagnosis - Chest pain, unspecified kb Followup: kb - With: Emergency Department - When: As needed - Reason: Worsening of condition Followup: kb - With: Private Physician - When: 2 - 3 days - Reason: Recheck today's complaints, Continuance of care, Re-evaluation by your physician Discharge Instructions: - Discharge Summary Sheet kb - Nonspecific Chest Pain, Adult, [id number] kb Forms: - Medication Reconciliation Form kb - Antibiotic Education kb - Prescription Opioid Use kb - Patient Portal Instructions kb - Leadership Thank You Letter kb Signatures: Dispatcher [employer] EDLiliane Abarca, DAVID-Ramesh CHESTERP-Fredrick Farr, RN RN jb4 Mil Lance MD MD rt Corrections: (The following items were deleted from the chart) 01/10 21:42 21:42 BASIC METABOLIC PANEL+C.LAB.BRZ ordered. EDMS EDMS 21:42 21:42 CBC+H.LAB.BRZ ordered. EDMS EDMS 21:42 21:42 D-DIMER+COAG.LAB.BRZ ordered. EDMS EDMS 21:42 21:42 Troponin High Sensitivity+C.LAB.BRZ ordered. EDMS EDMS 21:42 21:42 Chest Single View+RAD.RAD.BRZ ordered. EDMS EDMS
--- NOTE | 2024-01-12 00:24 | ER ---
Nurse's Notes [facility] Name: Rachael Knox Age: 38 yrs Sex: Female : 1985 Arrival Date: 01/11/2024 Time: 21:27 Bed 5 Private MD: Diagnosis: Chest pain, unspecified Presentation: 01/10 22:29 Chief complaint: Patient states: I have had SOB and chest tightness for the past 2 jb4 days. Coronavirus screen: At this time, the client does not indicate any symptoms associated with coronavirus-19. Ebola Screen: No symptoms or risks identified at this time. Initial Sepsis Screen: Does the patient meet any 2 criteria? No. Patient's initial sepsis screen is negative. Does the patient have a suspected source of infection? No. Patient's initial sepsis screen is negative. Risk Assessment: Do you want to hurt yourself or someone else? Patient reports no desire to harm self or others. Onset of symptoms was January 11, 2024. 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 - Infectious Disease History:: Denies. - Social history:: Smoking status: Patient denies any tobacco usage or history of. Screenin:31 [facility] ED Fall Risk Assessment (Adult) History of falling in the last 3 months, jb4 including since admission No falls in past 3 months (0 pts) Confusion or Disorientation No (0 pts) Intoxicated or Sedated No (0 pts) Impaired Gait No (0 pts) Mobility Assist Device Used No (0 pt) Altered Elimination No (0 pt) Score/Fall Risk Level 0 - 2 = Low Risk Oriented to surroundings, Maintained a safe environment. Abuse screen: Denies threats or abuse. Nutritional screening: No deficits noted. Tuberculosis screening: No symptoms or risk factors identified. Assessment: 22:31 General: Appears in no apparent distress. comfortable, Behavior is calm, cooperative, jb4 appropriate for age. Pain: Complains of pain in chest Pain does not radiate. Pain currently is 8 out of 10 on a pain scale. Quality of pain is described as tightness Pain began 2-3 days ago. Neuro: Level of Consciousness is awake, alert, obeys commands, Oriented to person, place, time, situation. Cardiovascular: Patient's skin is warm and dry. Respiratory: Airway is patent Respiratory effort is even, unlabored, Respiratory pattern is regular, symmetrical. GI: No signs and/or symptoms were reported involving the gastrointestinal system. : No signs and/or symptoms were reported regarding the genitourinary system. EENT: No signs and/or symptoms were reported regarding the EENT system. Derm: Skin is intact, Skin is pink, warm \T\ dry. Musculoskeletal: Circulation, motion, and sensation intact. Range of motion: intact in all extremities. 23:30 Reassessment: Patient appears in no apparent distress at this time. Patient and/or jb4 family updated on plan of care and expected duration. Pain level reassessed. Patient is alert, oriented x 3, equal unlabored respirations, skin warm/dry/pink. 01/11 00:42 Reassessment: Patient appears in no apparent distress at this time. Patient and/or jb4 family updated on plan of care and expected duration. Pain level reassessed. Patient is alert, oriented x 3, equal unlabored respirations, skin warm/dry/pink. Patient states feeling better. Vital Signs: 01/10 22:29 BP 130 / 85; Pulse 75; Resp 16; Temp 97.7(TE); Pulse Ox 94% on R/A; Weight 161.48 kg; jb4 Height 5 ft. 5 in. ; 22:51 BP 116 / 80; Pulse 73; Resp 16; Pulse Ox 94% on R/A; jb4 01/11 00:00 BP 129 / 82; Pulse 72; Resp 18; Pulse Ox 91% ; vc1 01/10 22:29 Body Mass Index 59.24 (161.48 kg, 165.1 cm) jb4 ED Course: 01/10 21:37 Patient arrived in ED. kmf 21:37 [facility] chris 21:37 Mil Lance MD is Attending Physician. kb 21:57 Initial lab(s) drawn, by id, sent to lab. Inserted saline lock: 20 gauge in right jb4 antecubital area, using aseptic technique. Blood collected. Flushed with 10 mL NS. 22:08 Basic Metabolic Panel Sent. jb4 22:08 CBC with Diff Sent. jb4 22:08 D-Dimer Sent. jb4 22:08 Troponin HS Sent. jb4 22:13 XRAY Chest (1 view) In Process Unspecified. EDMS 22:31 Triage completed. jb4 22:31 Arm band placed on right wrist. jb4 22:31 Patient has correct armband on for positive identification. Bed in low position. Call jb4 light in reach. Side rails up X 1. 22:51 Fredrick Galicia, RN is Primary Nurse. jb4 01/11 00:42 No provider procedures requiring assistance completed. IV discontinued, intact, jb4 bleeding controlled, No redness/swelling at site. Pressure dressing applied. 00:42 Provided Education on: discharge instructions.. jb4 Administered Medications: 00:42 Drug: Ketorolac IVP 15 mg IVP once Route: IVP; Site: right antecubital; jb4 00:42 Follow up: Response: Medication administered at discharge. jb4 Medication: 01/10 22:31 VIS not applicable for this client. jb4 Outcome: 01/11 00:23 Discharge ordered by . kb 00:42 Discharged to home ambulatory, jb4 00:42 Condition: stable 00:42 Discharge instructions given to patient, Instructed on discharge instructions, follow up and referral plans. Demonstrated understanding of instructions, follow-up care, 00:43 Patient left the ED. jb4 Signatures: Dispatcher [employer] EDMS Liliane Diallo FNP-C FNP-Ckb Bryson, James, VITA GORMAN jb4 Makenzie Stone RN RN 1 Georgette Clarke kmf
[2024-01-12] MEDS ORDERED: KETOROLAC 30 MG/ML INJ ONE (00:32)
[2024-01-12 00:48] VITALS: TEMP 97.7
[2024-01-12 00:50] VITALS: BP 129/82; O2SAT 91
--- NOTE | 2024-01-12 17:46 | EKG ---
Test Date: 2024-01-11 Test Time: 22:05:41 Tour Narrator: SANDRA MEASUREMENT RESULTS: Intervals: Rate: 81 UT: 150 QRSD: 100 QT: 426 QTc: 494 [place]: P: 37 UT: 150 QRS: 15 T: 80 INTERPRETIVE STATEMENTS: Normal sinus rhythm Low voltage QRS Nonspecific T wave abnormality Prolonged QT Abnormal ECG Compared to ECG 12/01/2023 17:49:31 No significant changes Electronically Signed On 01-12-24 17:44:17 CDT by Reza Gómez
--- NOTE | 2024-01-12 20:48 | RAD REPORT ---
EXAM DESCRIPTION: Chest Single View CLINICAL HISTORY: 38-year-old female with chest pain. TECHNIQUE: Single view, AP portable chest was obtained. COMPARISON: 12/01/2023. FINDINGS: Unremarkable cardiac and mediastinal silhouette. Heart size is normal. Low lung volumes without focal opacity, pneumothorax or pleural effusions. Right linear basilar opaci ty suggesting subsegmental atelectasis or scarring. Similar to the previous examination. The visualiz ed bones are within normal limits. IMPRESSION: No acute cardiopulmonary abnormalities. Electronically signed by: Julia Pickard MD 01/12/2024 12:18 AM CDT RP Due to temporary technical issues with the PACS/Fluency reporting system, reports are being signed by the in house radiologists without review as a courtesy to insure prompt reporting. The interpreting radiologist is fully responsible for the content of the report.
== END 2024-01-12 00:43 | disposition home or self-care (01) ==
LOC: ER 21:27
DX: R07.9 Chest pain, unspecified (principal); R06.02 Shortness of breath; F41.9 Anxiety disorder, unspecified; I10 Essential (primary) hypertension
CPT/HCPCS: 36415; 71045; 80048; 84484; 85025; 85379; 93005

== ENCOUNTER 2024-01-28 22:44 | Emergency (ER) | payer SELFPAY ==
[2024-01-28] MEDS ORDERED: DIAZEPAM 5 MG TABLET ONE (23:09)
[2024-01-28 23:14] LABS: Arterial Blood Carboxyhemoglob 1.2 % (0-1.5); Blood Gas Oxyhemoglobin 87.3 % (94-97); Blood Gas THB 9.5 g/dl (12-18); Blood O2 Saturation 90.4 % (92-98.5)
[2024-01-28 23:29] LABS: Absolute Basophils 0.1 K/uL (0-0.5); Absolute Eosinophils 0.4 K/uL (0-0.5); Absolute Lymphocytes (CBC) 2.5 K/uL (0.7-4.9); Absolute Monocytes 0.5 K/uL (0.1-1.3); Absolute Neutrophil 6.7 K/uL (1.8-8.0); Basophils % 1.1 % (0-1.3); Eosinophils % 4.1 % (0-4.4); Hematocrit 29.5 % (36.0-45.0); Hemoglobin 9.6 g/dL (12.0-15.0); Lymphocytes % 24.7 % (15.3-44.8); MCH 27.4 pg (27.0-35.0); MCHC 32.5 g/dL (32.0-36.0); MCV 84.4 fL (80-100); MPV 8.2 fL (7.6-11.3); Monocytes % 4.6 % (3.3-12.3); Neutrophils % 65.5 % (41.7-73.7); Nucleated Red Blood Cells % 0.1 % (0-0); Platelets 316 thou/uL (152-406); Red Cell Distribution Width 15.7 % (12.1-15.2)
[2024-01-28 23:30] LABS: PT Prothrombin Time 11.4 SECONDS (9.4-12.5); Protime INR 1.02
[2024-01-28 23:46] LABS: ALT/SGPT 27 U/L (13-56); AST/SGOT 26 U/L (15-37); Albumin 4.1 g/dL (3.4-5.0); Albumin/Globulin Ratio 1.1 (1.1-1.8); Alkaline Phosphatase 45 U/L (45-117); Anion Gap 9.2 mEq/L (5.0-15.0); BUN Blood Urea Nitrogen 9 mg/dL (7-18); Bicarbonate 29 mEq/L (21-32); Bilirubin Total 0.4 mg/dL (0.2-1.0); Globulin 3.7 g/dL (2.3-3.5); Glomerular Filtration Rate 63 ml/min (=/>90); Glucose Level 113 mg/dL (74-106); Magnesium 2.3 mg/dL (1.6-2.4); NT PRO-BNP 6 pg/mL (<125); Potassium 3.2 mEq/L (3.5-5.1); Protein, Total 7.8 g/dL (6.4-8.2); Sodium Level 139 mEq/L (136-145)
[2024-01-28 23:49] LABS: Bilirubin Direct < 0.2 mg/dL (0-0.2); Bilirubin Indirect, Calculated 0.2 mg/dL (0.2-0.8); Troponin High Sensitivity < 3.0 pg/mL (<58.9)
--- NOTE | 2024-01-29 01:03 | EDPHYS ---
Physician Documentation [facility] Name: Rachael Knox Age: 38 yrs Sex: Female : 1985 Arrival Date: 01/28/2024 Time: 22:44 Bed 13 Private MD: ED Physician Donato Martin HPI: 01/27 22:50 This 38 yrs old Female presents to ER via Unassigned with complaints of PT sp4 states she is having "chest discomfort". 01/28 01:10 48-year-old female with past medical history of anemia, anxiety, asthma, bipolar sp4 disorder, hypothyroidism, hypertension history of recent right breast abscess with incision and drainage in operating room, most recent admission 12/17/2023, presents to the emergency room for complaint of left-sided chest discomfort starting 4 days ago. . 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 LMP N/A - , Not rg5 Historical: - Allergies: 23:04 Bactrim; tl4 23:04 mycins; tl4 23:04 PENICILLINS; tl4 23:04 Sulfa (Sulfonamide Antibiotics); tl4 - Home Meds: 23:04 albuterol sulfate 90 mcg/actuation inhalation HFA Aerosol Inhaler [Active]; Xanax 1 mg tl4 oral tablet [Active]; - PMHx: 23:04 Anemia; Anxiety; Asthma; Bipolar disorder; Blood transfusions; cardiac arrest; tl4 Hypertension; Hypothyroidism; NIDDM; Depressive disorder; - PSHx: 23:04 Appendectomy; section; hernia repair; Tonsillectomy; tubal ligation; tl4 23:06 breast; Dilation and curettage; tl4 - Immunization history:: Adult Immunizations unknown. - Infectious Disease History:: Denies. - Social history:: Smoking status: Patient denies any tobacco usage or history of. - Family history:: not pertinent. ROS: 01/28 01:10 Constitutional: Negative for fever, chills, and weight loss, today positive for left sp4 chest pain All other systems are negative, Exam: 01:10 Constitutional: This is a well developed, well nourished patient who is awake, alert, sp4 and in no acute distress. Morbidly overweight female, pale appearing Head/Face: Normocephalic, atraumatic. Eyes: Pupils equal round and reactive to light, extra-ocular motions intact. Lids and lashes normal. Conjunctiva and sclera are not injected. Cornea within normal limits. Periorbital areas with no swelling, redness, or edema. ENT: Nares patent. No nasal discharge, no septal abnormalities noted. Tympanic membranes are normal and external auditory canals are clear. Oropharynx with no redness, swelling, or masses, exudates, or evidence of obstruction, uvula midline. Mucous membranes moist. Neck: Trachea midline, no thyromegaly or masses palpated, and no cervical lymphadenopathy. Supple, full range of motion without nuchal rigidity, or vertebral point tenderness. Chest/axilla: Normal chest wall appearance and motion. Nontender with no deformity. No lesions are appreciated. Cardiovascular: Regular rate and rhythm with a normal S1 and S2. No gallops, murmurs, or rubs. Normal PMI, no JVD. No pulse deficits. Respiratory: Lungs have equal breath sounds bilaterally, clear to auscultation and percussion. No rales, rhonchi or wheezes noted. No increased work of breathing, no retractions or nasal flaring. Abdomen/GI: Soft, with normal bowel sounds. No distension or tympany. No guarding or rebound. No evidence of tenderness throughout. Back: No spinal tenderness. No costovertebral tenderness. Skin: Warm, dry with normal turgor. Normal color with no rashes, no lesions, and no evidence of cellulitis. MS/ Extremity: Pulses equal, no cyanosis. Neurovascular intact. Full, normal range of motion. Neuro: Awake and alert, GCS 15, oriented to person, place, time, and situation. Cranial nerves II-XII grossly intact. Motor strength 5/5 in all extremities. Sensory grossly intact. Psych: Awake, alert, with orientation to person, place and time. Behavior, mood, and affect are within normal limits 01:10 ECG was reviewed by the Attending Physician. EKG at 2258 normal sinus rhythm at a rate of 93, normal otherwise EKG Vital Signs: 01/27 23:01 BP 132 / 90; Pulse 95; Resp 14; Temp 97.9(TE); Pulse Ox 93% on R/A; Weight 158.5 kg; tl4 Height 5 ft. 5 in. ; Pain 10/10; 23:15 BP 123 / 89; Pulse 83; Resp 19; Pulse Ox 91% on R/A; rg5 01/28 00:30 BP 104 / 60; Pulse 85; Resp 19; Pulse Ox 94% on 3 lpm NC; rg5 01:18 BP 118 / 67; Pulse 70; Resp 17; Temp 98; Pulse Ox 97% on R/A; Pain 0/10; rg5 01/27 23:01 Body Mass Index 58.15 (158.50 kg, 165.1 cm) tl4 01/27 23:01 Pain Scale: Adult tl4 01:18 Pain Scale: Adult rg5 [place] Coma Score: 01/27 23:00 Eye Response: spontaneous(4). Motor Response: obeys commands(6). Verbal Response: rg5 oriented(5). Total: 15. MDM: 22:52 Patient medically screened. 4 01/28 00:39 ED course: EXAM DESCRIPTION: XR CHEST 1 VIEW CLINICAL HISTORY: CHEST PAIN COMPARISON: 4 CXR, 01/11/2024 FINDINGS: Cardiac silhouette is within normal limits. Linear opacities at the right lower lung are unchanged compared with the prior exam and could be secondary to atelectasis. There is elevation of the right hemidiaphragm, unchanged compared with the prior exam. EKG leads project over the chest.. There is no acute osseous process visualized. IMPRESSION: Linear opacities at the right lower lung are unchanged compared with the prior exam and could be secondary to atelectasis. Electronically signed by: Jose Carlos Wilson MD 01/28/2024 11:47 PM. 01:13 Differential diagnosis: abnormal EKG, acute pericarditis, anxiety, coronary artery sp4 disease costochondritis, esophagitis, gastritis. HEART Score: History: Slightly Suspicious (0), ECG: Normal (0), Age: < or = 45 years (0), Risk Factors: 1 or 2 risk factors (1), Troponin: < or = 1 x Normal Limit (0), Total Score = 1. Data reviewed: vital signs, nurses notes, lab test result(s), EKG, radiologic studies, plain films. ED course: Workup today is unremarkable. Patient's hemoglobin 9.6. Patient stable for discharge home. Will provide prescription for Synthroid and as needed Valium as well. 01/27 22:52 Order name: Basic Metabolic Panel; Complete Time: 00:38 sp4 01/27 22:52 Order name: CBC with Diff; Complete Time: 23:29 sp4 01/27 22:52 Order name: LFT's; Complete Time: 00:38 sp4 01/27 22:52 Order name: Magnesium; Complete Time: 00:38 sp4 01/27 22:52 Order name: NT PRO-BNP; Complete Time: 00:38 sp4 01/27 22:52 Order name: PT-INR; Complete Time: 00:38 sp4 01/27 22:52 Order name: Troponin HS; Complete Time: 00:38 sp4 01/27 22:59 Order name: ABG; Complete Time: 23:29 sp4 01/27 22:52 Order name: XRAY Chest (1 view) 4 01/27 22:52 Order name: EKG; Complete Time: 22:52 sp4 01/27 22:52 Order name: Cardiac monitoring; Complete Time: 23:06 4 01/27 22:52 Order name: EKG - Nurse/Tech; Complete Time: 23:06 sp4 01/27 22:52 Order name: IV Saline Lock; Complete Time: 23:06 sp4 01/27 22:52 Order name: Labs collected and sent; Complete Time: 23:06 sp4 01/27 22:52 Order name: O2 Per Protocol; Complete Time: 23:06 sp4 01/27 22:52 Order name: O2 Sat Monitoring; Complete Time: 23:06 sp4 EC:10 Rate is 93 beats/min. Rhythm is regular, Normal Sinus Rhythm. QRS [place] is Normal. [place] sp4 interval is normal. QRS interval is normal. QT interval is normal. No Q waves. T waves are Normal. No ST changes noted. Clinical impression: No evidence of ischemia. Interpreted by me. Reviewed by me. Administered Medications: 01/27 23:25 Drug: Diazepam PO 5 mg PO once Route: PO; vc1 01/28 00:52 Follow up: Response: No adverse reaction rg5 01:15 Drug: Synthroid PO 100 mcg PO once Route: PO; rg5 01:22 Follow up: Response: No adverse reaction rg5 Disposition Summary: 01/29/24 01:02 Discharge Ordered Notes: Location: Home sp4 Problem: new sp4 Symptoms: have improved sp4 Condition: Stable sp4 Diagnosis - Anxiety disorder, unspecified sp4 - Acute Anxiety Attack , Chronic Anemia sp4 Followup: sp4 - With: Private Physician - When: 7 - 10 days - Reason: Recheck today's complaints Discharge Instructions: - Discharge Summary Sheet sp4 - Managing Anxiety, Adult sp4 Forms: - Patient Portal Instructions sp4 Prescriptions: - levothyroxine 125 mcg Oral capsule - take 1 capsule ORAL route daily; 30 capsule; Refills: 0, Product Selection sp4 Permitted - Valium 5 mg Oral tablet - take 1 tablet ORAL route once daily As needed PRN Anxiety Attack; 12 tablet; sp4 Refills: 0, Product Selection Permitted Signatures: Dispatcher [employer] Peggy Gold RN RN ph Makenzie Stone RN RN vc1 Donato Martin MD MD sp4 Nba Henderson RN RN tl4 Robert Gerard RN RN rg5 Corrections: (The following items were deleted from the chart) 01/27 23:07 23:04 PSHx: breast (tubal ligation); tl4 tl4
--- NOTE | 2024-01-29 01:03 | ER ---
Nurse's Notes [facility] Name: Rachael Knox Age: 38 yrs Sex: Female : 1985 Arrival Date: 01/28/2024 Time: 22:44 Bed 13 Private MD: Diagnosis: Anxiety disorder, unspecified;Acute Anxiety Attack , Chronic Anemia Presentation: 01/27 23:01 Chief complaint: Patient states: Pt c/o constant non-reproducible, non-radiating sharp, tl4 stabbing chest pain and nausea x 4-5 days. Pt states no relief of sxs with Xanax. Coronavirus screen: At this time, the client does not indicate any symptoms associated with coronavirus-19. Ebola Screen: No symptoms or risks identified at this time. Initial Sepsis Screen: Does the patient meet any 2 criteria? No. Patient's initial sepsis screen is negative. Does the patient have a suspected source of infection? No. Patient's initial sepsis screen is negative. Risk Assessment: Do you want to hurt yourself or someone else? Patient reports no desire to harm self or others. Onset of symptoms was January 24, 2024. 23:01 Method Of Arrival: Ambulatory tl4 23:01 Acuity: DARSHAN 2 tl4 Triage Assessment: 23:07 General: Appears in no apparent distress. Behavior is calm, cooperative. Pain: tl4 Complains of pain in chest. EENT: No signs and/or symptoms were reported regarding the EENT system. Neuro: Level of Consciousness is awake, alert, obeys commands, Oriented to person, place, time, situation. Neuro: Reports dizziness. Cardiovascular: Reports chest pain, nausea, shortness of breath, Denies palpitations. Respiratory: Reports shortness of breath Airway is patent Respiratory effort is even, unlabored, Respiratory pattern is regular, symmetrical. GI: Reports nausea. : No signs and/or symptoms were reported regarding the genitourinary system. Derm: No signs and/or symptoms reported regarding the dermatologic system. Musculoskeletal: No signs and/or symptoms reported regarding the musculoskeletal system. 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 N/A - , Not rg5 Historical: - Allergies: 23:04 Bactrim; tl4 23:04 mycins; tl4 23:04 PENICILLINS; tl4 23:04 Sulfa (Sulfonamide Antibiotics); tl4 - Home Meds: 23:04 albuterol sulfate 90 mcg/actuation inhalation HFA Aerosol Inhaler [Active]; Xanax 1 mg tl4 oral tablet [Active]; - PMHx: 23:04 Anemia; Anxiety; Asthma; Bipolar disorder; Blood transfusions; cardiac arrest; tl4 Hypertension; Hypothyroidism; NIDDM; Depressive disorder; - PSHx: 23:04 Appendectomy; section; hernia repair; Tonsillectomy; tubal ligation; tl4 23:06 breast; Dilation and curettage; tl4 - Immunization history:: Adult Immunizations unknown. - Infectious Disease History:: Denies. - Social history:: Smoking status: Patient denies any tobacco usage or history of. - Family history:: not pertinent. Screenin:00 [facility] ED Fall Risk Assessment (Adult) History of falling in the last 3 months, rg5 including since admission No falls in past 3 months (0 pts) Confusion or Disorientation No (0 pts) Intoxicated or Sedated No (0 pts) Impaired Gait Yes (1 pt) Mobility Assist Device Used Yes (1 pt) Altered Elimination No (0 pt) Score/Fall Risk Level 0 - 2 = Low Risk Oriented to surroundings, Maintained a safe environment, Hourly rounding (assess needs \T\ fall precautionary measures) done. 23:00 Abuse screen: Denies threats or abuse. Nutritional screening: No deficits noted. rg5 Tuberculosis screening: No symptoms or risk factors identified. Assessment: 23:00 General: Appears in no apparent distress. Behavior is cooperative, appropriate for age, rg5 anxious. 23:00 Pain: Complains of pain in chest Pain currently is 10 out of 10 on a pain scale. rg5 Quality of pain is described as pressure. Neuro: Level of Consciousness is awake, alert, obeys commands, Oriented to person, place, time, situation. Cardiovascular: Reports chest pain, shortness of breath, Heart tones S1 S2 Capillary refill Patient's skin is warm and dry. Rhythm is sinus rhythm. Respiratory: Airway is patent Trachea midline Respiratory effort is even, unlabored, Respiratory pattern is regular, symmetrical. GI: No deficits noted. : No signs and/or symptoms were reported regarding the genitourinary system. EENT: No deficits noted. Derm: Skin is intact, Skin is dry, Skin is normal, Skin temperature is warm. Musculoskeletal: Range of motion: intact in all extremities. 01/28 00:30 Reassessment: No changes from previously documented assessment. Patient and/or family rg5 updated on plan of care and expected duration. Pain level reassessed. 01:00 Reassessment: Patient and/or family updated on plan of care and expected duration. Pain rg5 level reassessed. Patient is alert, oriented x 3, equal unlabored respirations, skin warm/dry/pink. Patient states feeling better. Patient states symptoms have improved. Vital Signs: 01/27 23:01 BP 132 / 90; Pulse 95; Resp 14; Temp 97.9(TE); Pulse Ox 93% on R/A; Weight 158.5 kg; tl4 Height 5 ft. 5 in. ; Pain 10/10; 23:15 BP 123 / 89; Pulse 83; Resp 19; Pulse Ox 91% on R/A; rg5 01/28 00:30 BP 104 / 60; Pulse 85; Resp 19; Pulse Ox 94% on 3 lpm NC; rg5 01:18 BP 118 / 67; Pulse 70; Resp 17; Temp 98; Pulse Ox 97% on R/A; Pain 0/10; rg5 01/27 23:01 Body Mass Index 58.15 (158.50 kg, 165.1 cm) tl4 01/27 23:01 Pain Scale: Adult tl4 01:18 Pain Scale: Adult rg5 [place] Coma Score: 01/27 23:00 Eye Response: spontaneous(4). Motor Response: obeys commands(6). Verbal Response: rg5 oriented(5). Total: 15. ED Course: 22:46 Patient arrived in ED. jj6 22:50 Donato Martin MD is Attending Physician. sp4 22:51 Robert Gerard, VITA is Primary Nurse. rg5 23:00 No provider procedures requiring assistance completed. rg5 23:01 EKG done, by ED staff, reviewed by Donato Martin MD. tl4 23:01 Patient has correct armband on for positive identification. Placed in gown. Bed in low tl4 position. Call light in reach. Side rails up X 1. Provided Education on: call ackerman. Client placed on continuous cardiac and pulse oximetry monitoring. NIBP monitoring applied. customer service receptionist on. Door closed. Noise minimized. Moved to private room. Warm blanket given. 23:04 Triage completed. tl4 23:07 Inserted saline lock: 22 gauge in right antecubital area, using aseptic technique. vc1 Blood collected. Flushed with 10 mL NS. 23:07 Initial lab(s) drawn, by me, sent to lab. vc1 23:09 Arm band placed on right wrist. tl4 23:29 XRAY Chest (1 view) In Process Unspecified. EDMS 23:45 Awaiting lab results, Awaiting radiology results. rg5 01/28 01:20 IV discontinued. rg5 Administered Medications: 01/27 23:25 Drug: Diazepam PO 5 mg PO once Route: PO; vc1 01/28 00:52 Follow up: Response: No adverse reaction rg5 01:15 Drug: Synthroid PO 100 mcg PO once Route: PO; rg5 01:22 Follow up: Response: No adverse reaction rg5 Medication: 01/27 23:00 VIS not applicable for this client. rg5 Outcome: 01/28 01:02 Discharge ordered by . sp4 01:19 Discharged to home ambulatory, rg5 01:19 Condition: stable 01:19 Discharge instructions given to patient, Instructed on discharge instructions, Demonstrated understanding of instructions, follow-up care, Prescriptions given X 2, 01:23 Patient left the ED. rg5 Signatures: Dispatcher [employer] Peggy Gold, RN RN Lalita LyonMakenzie Pacheco RN RN vc1 Donato Martin MD MD sp4 Nba Henderson RN RN tl4 Robert Gerard RN RN rg5 Corrections: (The following items were deleted from the chart) 01/27 23: 23:04 PSHx: breast (tubal ligation); tl4 tl4 23:25 23:24 Diazepam PO 5 mg PO ph vc1
[2024-01-29] MEDS ORDERED: LEVOTHYROXINE SOD 0.1 MG TAB ONE (01:15)
[2024-01-29 01:53] VITALS: BP 118/67; TEMP 98; O2SAT 97
--- NOTE | 2024-01-29 09:13 | RAD REPORT ---
EXAM DESCRIPTION: RAD - Chest Single View - 01/28/2024 11:27 pm CLINICAL HISTORY: CHEST PAIN COMPARISON: CXR, 01/11/2024 FINDINGS: Cardiac silhouette is within normal limits. Linear opacities at the right lower lung are u nchanged compared with the prior exam and could be secondary to atelectasis. There is elevation of th e right hemidiaphragm, unchanged compared with the prior exam. EKG leads project over the chest.. The re is no acute osseous process visualized. IMPRESSION: Linear opacities at the right lower lung are unchanged compared with the prior exam and could be secondary to atelectasis. Electronically signed by: Jose Carlos Wilson MD 01/28/2024 11:47 PM CDT RP Due to temporary technical issues with the PACS/Fluency reporting system, reports are being signed by the in house radiologists without review as a courtesy to insure prompt reporting. The interpreting radiologist is fully responsible for the content of the report.
--- NOTE | 2024-02-01 17:11 | EKG ---
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
== END 2024-01-29 01:23 | disposition home or self-care (01) ==
LOC: ER 22:44
DX: F41.0 Panic disorder [episodic paroxysmal anxiety] (principal)
CPT/HCPCS: 36415; 36600; 71045; 80048; 80076; 82805; 83735; 83880; 84484; 85025; 85610; 93005; 99284

== ENCOUNTER 2024-03-10 19:57 | Emergency (ER) | payer SELFPAY ==
--- NOTE | 2024-03-10 21:27 | RAD REPORT ---
EXAMINATION: ONE VIEW CHEST XR CLINICAL INDICATION: CHEST PAIN TECHNIQUE: Frontal chest projection is submitted. Examination is limited by patient positioning and t echnique. COMPARISON: 01/28/2024 FINDINGS: The lungs are underinflated resulting in vascular crowding. The heart is moderately enlarged in size. No displaced fractures identified. IMPRESSION: Underinflated lungs resulting in vascular crowding.
[2024-03-10 21:44] LABS: Hemoglobin 9.7 g/dL (12.0-15.0); MCH 26.9 pg (27.0-35.0); MCHC 32.3 g/dL (32.0-36.0); MCV 83.3 fL (80-100); Platelets 281 thou/uL (152-406); Red Cell Distribution Width 15.8 % (12.1-15.2)
--- NOTE | 2024-03-10 22:10 | ER ---
Nurse's Notes [facility] Name: Rachael Knox Age: 39 yrs Sex: Female : 1985 Arrival Date: 03/10/2024 Time: 19:57 Bed 11 Private MD: Diagnosis: Anemia, unspecified;Chronic microcytic anemia, noncardiac chest pain, acute anxiety, Cough Presentation: 03/10 20:03 Chief complaint: Patient states: cough X1 week. anxiety with substernal CP since this lg3 morning. Ativan taken 1900. 324 ASA administered by EMS [employer]. Coronavirus screen: Client denies travel out of the [place] in the last 14 days. At this time, the client does not indicate any symptoms associated with coronavirus-19. Ebola Screen: No symptoms or risks identified at this time. Initial Sepsis Screen: Does the patient meet any 2 criteria? No. Patient's initial sepsis screen is negative. Does the patient have a suspected source of infection? No. Patient's initial sepsis screen is negative. Risk Assessment: Do you want to hurt yourself or someone else? Patient reports no desire to harm self or others. Onset of symptoms was March 10, 2024. 20:03 Method Of Arrival: EMS: [facility] lg3 20:03 Acuity: DARSHAN 3 lg3 Triage Assessment: 20:05 General: Appears in no apparent distress. comfortable, Behavior is calm, cooperative. lg3 Pain: Complains of pain in chest Pain does not radiate. Quality of pain is described as stabbing. EENT: No deficits noted. No signs and/or symptoms were reported regarding the EENT system. Neuro: No deficits noted. Gan Agitation-Sedation Scale (RASS): 0 - Alert and Calm Level of Consciousness is awake, alert, obeys commands, Oriented to person, place, time, situation. Cardiovascular: No deficits noted. Reports chest pain, Heart tones S1 S2 present Capillary refill < 3 seconds Clubbing of nail beds is absent JVD is absent Patient's skin is warm and dry. Respiratory: No deficits noted. Airway is patent Respiratory effort is even, unlabored, Respiratory pattern is regular, symmetrical, Breath sounds are clear bilaterally. Respiratory: Reports cough that is dry. GI: No deficits noted. No signs and/or symptoms were reported involving the gastrointestinal system. : No deficits noted. No signs and/or symptoms were reported regarding the genitourinary system. Derm: No deficits noted. No signs and/or symptoms reported regarding the dermatologic system. Skin is intact, is healthy with good turgor, Skin is dry, Skin is normal, Skin temperature is warm. Musculoskeletal: No deficits noted. No signs and/or symptoms reported regarding the musculoskeletal system. Circulation, motion, and sensation intact. Range of motion: intact in all extremities. 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 - Infectious Disease History:: Denies. - Social history:: Smoking status: Patient denies any tobacco usage or history of. Patient/guardian denies using alcohol, street drugs. Screenin:07 [facility] ED Fall Risk Assessment (Adult) History of falling in the last 3 months, lg3 including since admission No falls in past 3 months (0 pts) Confusion or Disorientation No (0 pts) Intoxicated or Sedated No (0 pts) Impaired Gait No (0 pts) Mobility Assist Device Used No (0 pt) Altered Elimination No (0 pt) Score/Fall Risk Level 0 - 2 = Low Risk Oriented to surroundings, Maintained a safe environment, Educated pt \T\ family on fall prevention, incl call for assistance when getting out of bed, Assessed \T\ reinforced patient's understanding of fall precautions. Abuse screen: Denies threats or abuse. Denies injuries from another. Nutritional screening: No deficits noted. Tuberculosis screening: No symptoms or risk factors identified. Assessment: 20:07 General: see triage assessment. Pain: Complains of pain in chest Pain does not radiate. lg3 Pain began this morning. 22:46 Reassessment: Patient appears in no apparent distress at this time. Patient and/or lg3 family updated on plan of care and expected duration. Pain level reassessed. Patient is alert, oriented x 3, equal unlabored respirations, skin warm/dry/pink. Patient states feeling better. Patient states symptoms have improved. Vital Signs: 20:03 BP 150 / 90; Pulse 84; Resp 17 S; Temp 98.7(O); Pulse Ox 97% on R/A; Weight 163.29 kg lg3 (R); Height 5 ft. 5 in. (R); 22:46 BP 147 / 89; Pulse 81; Resp 16 S; Temp 98.1(O); Pulse Ox 96% on R/A; lg3 20:03 Body Mass Index 59.91 (163.29 kg, 165.1 cm) lg3 Zach Coma Score: 21:46 Eye Response: spontaneous(4). Motor Response: obeys commands(6). Verbal Response: sp4 oriented(5). Total: 15. ED Course: 19:59 Patient arrived in ED. lg3 20:04 Donato Martin MD is Attending Physician. sp4 20:05 Triage completed. lg3 20:05 Arm band placed on right wrist. lg3 20:07 Patient has correct armband on for positive identification. Placed in gown. Bed in low lg3 position. Call light in reach. Side rails up X 1. Client placed on continuous cardiac and pulse oximetry monitoring. NIBP monitoring applied. monitoring coordinator on. Door closed. Noise minimized. Warm blanket given. Pillow given. 20:07 Patient maintains SpO2 saturation greater than 95% on room air. lg3 21:20 Inserted saline lock: 20 gauge in right antecubital area, using aseptic technique. sa1 Blood collected. Flushed with 10 mL NS. 21:23 Chest Single View XRAY In Process Unspecified. EDMS 22:46 No provider procedures requiring assistance completed. IV discontinued, intact, lg3 bleeding controlled, No redness/swelling at site. Pressure dressing applied. Administered Medications: No medications were administered Medication: 20:07 VIS not applicable for this client. lg3 Outcome: 22:10 Discharge ordered by . sp4 22:46 Discharged to home ambulatory, lg3 22:46 Condition: stable 22:46 Discharge instructions given to patient, Instructed on discharge instructions, follow up and referral plans. Demonstrated understanding of instructions, follow-up care, 22:47 Patient left the ED. lg3 Signatures: Dispatcher [employer] Nita Saldaña RN RN lg3 Donato Martin MD MD sp4 Sultan Sarah 1
--- NOTE | 2024-03-10 22:10 | EDPHYS ---
Physician Documentation [facility] Name: Rachael Knox Age: 39 yrs Sex: Female : 1985 Arrival Date: 03/10/2024 Time: 19:57 Bed 11 Private MD: ED Physician Donato Martin HPI: 03/10 20:05 This 39 yrs old Female presents to ER via Unassigned with complaints of sp4 Anxiety, Chest Pain, Cough. 21:45 39-year-old female presents to the ER with complaint of anxiety sharp midsternal chest sp4 pain and cough. Patient reports sharp chest pain starting in the morning. History of anemia, anxiety, asthma, bipolar disorder blood transfusions, history of depression morbid obesity prior to cardiac arrest. . 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 - Infectious Disease History:: Denies. - Social history:: Smoking status: Patient denies any tobacco usage or history of. Patient/guardian denies using alcohol, street drugs. ROS: 21:46 Constitutional: Negative for fever, chills, and weight loss, positive cough, positive sp4 chest discomfort, positive anxiety 21:46 All other systems are negative, Exam: 21:46 Constitutional: This is a well developed, well nourished patient who is awake, alert, sp4 and in no acute distress. Morbidly overweight female Head/Face: Normocephalic, atraumatic. Eyes: Pupils equal round and reactive to light, extra-ocular motions intact. Lids and lashes normal. Conjunctiva and sclera are not injected. Cornea within normal limits. Periorbital areas with no swelling, redness, or edema. ENT: Nares patent. No nasal discharge, no septal abnormalities noted. Tympanic membranes are normal and external auditory canals are clear. Oropharynx with no redness, swelling, or masses, exudates, or evidence of obstruction, uvula midline. Mucous membranes moist. Neck: Trachea midline, no thyromegaly or masses palpated, and no cervical lymphadenopathy. Supple, full range of motion without nuchal rigidity, or vertebral point tenderness. Chest/axilla: Normal chest wall appearance and motion. Nontender with no deformity. No lesions are appreciated. Cardiovascular: Regular rate and rhythm with a normal S1 and S2. No gallops, murmurs, or rubs. Normal PMI, no JVD. No pulse deficits. Respiratory: Lungs have equal breath sounds bilaterally, clear to auscultation and percussion. No rales, rhonchi or wheezes noted. No increased work of breathing, no retractions or nasal flaring. Abdomen/GI: Soft, with normal bowel sounds. No distension or tympany. No guarding or rebound. No evidence of tenderness throughout. Back: No spinal tenderness. No costovertebral tenderness. Skin: Warm, dry with normal turgor. Normal color with no rashes, no lesions, and no evidence of cellulitis. MS/ Extremity: Pulses equal, no cyanosis. Neurovascular intact. Full, normal range of motion. Neuro: Awake and alert, GCS 15, oriented to person, place, time, and situation. Cranial nerves II-XII grossly intact. Motor strength 5/5 in all extremities. Sensory grossly intact. Psych: Awake, alert, with orientation to person, place and time. Behavior, mood, and affect are within normal limits 21:46 ECG was reviewed by the Attending Physician. EKG 2020 reveals normal sinus rhythm, no ST elevation or depression, no ectopy. Low voltage QRS. Vital Signs: 20:03 BP 150 / 90; Pulse 84; Resp 17 S; Temp 98.7(O); Pulse Ox 97% on R/A; Weight 163.29 kg lg3 (R); Height 5 ft. 5 in. (R); 22:46 BP 147 / 89; Pulse 81; Resp 16 S; Temp 98.1(O); Pulse Ox 96% on R/A; lg3 20:03 Body Mass Index 59.91 (163.29 kg, 165.1 cm) lg3 Zach Coma Score: 21:46 Eye Response: spontaneous(4). Motor Response: obeys commands(6). Verbal Response: sp4 oriented(5). Total: 15. MDM: 20:06 Medical Screening Exam initiated sp4 22:07 ED course: EXAMINATION: ONE VIEW CHEST XR CLINICAL INDICATION: CHEST PAIN TECHNIQUE: sp4 Frontal chest projection is submitted. Examination is limited by patient positioning and technique. COMPARISON: 01/28/2024 FINDINGS: The lungs are underinflated resulting in vascular crowding. The heart is moderately enlarged in size. No displaced fractures identified. IMPRESSION: Underinflated lungs resulting in vascular crowding. . 22:11 Differential diagnosis: acute pericarditis, anxiety, chest wall pain, esophagitis, sp4 gastritis. The patient was not given aspirin in the Emergency Department. Administered by EMS. Data reviewed: vital signs, nurses notes, old medical records, lab test result(s), radiologic studies, plain films. Data reviewed: EMS record. 22:12 ED course: Hemoglobin is at baseline at 9.7. Patient has had a full cardiac workup on sp4 01/28/2024 which was negative. At this time there is no necessity to repeat workup. . 22:13 ED course: Chest X ray report from 01/28/2024 - EXAM DESCRIPTION: XR CHEST 1 VIEW sp4 CLINICAL HISTORY: CHEST PAIN COMPARISON: CXR, 01/11/2024 FINDINGS: Cardiac silhouette is within normal limits. Linear opacities at the right lower lung are unchanged compared with the prior exam and could be secondary to atelectasis. There is elevation of the right hemidiaphragm, unchanged compared with the prior exam. EKG leads project over the chest.. There is no acute osseous process visualized. IMPRESSION: Linear opacities at the right lower lung are unchanged compared with the prior exam and could be secondary to atelectasis. . 03/10 20:14 Order name: CBC w/o diff; Complete Time: 21:57 sp4 03/10 20:14 Order name: Test, Serum; Complete Time: 21:57 sp4 03/10 20:15 Order name: Chest Single View XRAY; Complete Time: 21:44 sp4 03/10 20:14 Order name: EKG; Complete Time: 20:14 sp4 03/10 20:14 Order name: EKG - Nurse/Tech; Complete Time: 20:24 sp4 EC:46 Rate is 81 beats/min. Rhythm is regular, Normal Sinus Rhythm. QRS [place] is Normal. [place] sp4 interval is normal. QRS interval is normal. QT interval is normal. T waves are Normal. No ST changes noted. Clinical impression: No evidence of ischemia. Interpreted by me. Reviewed by me. Administered Medications: No medications were administered Disposition Summary: 03/10/24 22:10 Discharge Ordered Problem: new sp4 Symptoms: have improved sp4 Condition: Stable sp4 Diagnosis - Anemia, unspecified sp4 - Chronic microcytic anemia, noncardiac chest pain, acute anxiety, Cough sp4 Followup: sp4 - With: Private Physician - When: 7 - 10 days - Reason: Recheck today's complaints Discharge Instructions: - Discharge Summary Sheet sp4 - Anemia sp4 Forms: - Patient Portal Instructions sp4 Signatures: Dispatcher [employer] Nita Saldaña RN RN lg3 Donato Martin MD MD sp4 Corrections: (The following items were deleted from the chart) 22:14 22:12 ED course: Hemoglobin is at baseline at 9.7. Patient has had a full cardiac sp4 workup on 01/30/2024 which was negative. At this time there is no necessity to repeat workup. . sp4
[2024-03-11 02:08] VITALS: BP 147/89; TEMP 98.1; O2SAT 96
== END 2024-03-10 22:47 | disposition home or self-care (01) ==
LOC: ER 19:57
DX: D50.9 Iron deficiency anemia, unspecified (principal); R07.89 Other chest pain; F41.9 Anxiety disorder, unspecified; R05.9 Cough, unspecified
CPT/HCPCS: 36415; 71045; 84703; 85027; 93005; 99284

== ENCOUNTER 2024-04-03 00:12 | Emergency (ER) | payer SELFPAY ==
[2024-04-03] MEDS ORDERED: MORPHINE 4 MG/ML SYR ONE (00:41)
[2024-04-03] MEDS ORDERED: ONDANSETRON 4 MG/2 ML VIAL ONE (00:41)
[2024-04-03] MEDS ORDERED: NA CHLORIDE 0.9% 1,000 ML ONE (00:42)
[2024-04-03 01:57] LABS: Absolute Basophils 0.1 K/uL (0-0.5); Absolute Eosinophils 0.3 K/uL (0-0.5); Absolute Lymphocytes (CBC) 2.7 K/uL (0.7-4.9); Absolute Monocytes 0.6 K/uL (0.1-1.3); Absolute Neutrophil 5.8 K/uL (1.8-8.0); Basophils % 0.9 % (0-1.3); Eosinophils % 3.1 % (0-4.4); Hematocrit 27.2 % (36.0-45.0); Hemoglobin 8.6 g/dL (12.0-15.0); Lymphocytes % 28.6 % (15.3-44.8); MCH 26.5 pg (27.0-35.0); MCHC 31.8 g/dL (32.0-36.0); MCV 83.4 fL (80-100); MPV 8.7 fL (7.6-11.3); Monocytes % 6.5 % (3.3-12.3); Neutrophils % 60.9 % (41.7-73.7); Nucleated Red Blood Cells % 0.1 % (0-0); Platelets 256 thou/uL (152-406); RBC Red Blood Cell Count 3.26 M/uL (3.86-4.86); Red Cell Distribution Width 16.1 % (12.1-15.2)
[2024-04-03 02:18] LABS: ALT/SGPT 22 U/L (13-56); AST/SGOT 27 U/L (15-37); Albumin 3.8 g/dL (3.4-5.0); Alkaline Phosphatase 41 U/L (45-117); Anion Gap 7.5 mEq/L (5.0-15.0); BUN Blood Urea Nitrogen 11 mg/dL (7-18); Bicarbonate 29 mEq/L (21-32); Bilirubin Total 0.4 mg/dL (0.2-1.0); Glomerular Filtration Rate 64 ml/min (=/>90); Glucose Level 102 mg/dL (74-106); Lipase 31 U/L (13-75); NT PRO-BNP 12 pg/mL (<125); Potassium 3.5 mEq/L (3.5-5.1); Protein, Total 7.8 g/dL (6.4-8.2); Sodium Level 138 mEq/L (136-145); Troponin High Sensitivity < 3.0 pg/mL (<58.9)
--- NOTE | 2024-04-03 02:25 | EDPHYS ---
Physician Documentation [facility] Name: Rachael Knox Age: 39 yrs Sex: Female : 1985 Arrival Date: 04/03/2024 Time: 00:12 Bed 18 Private MD: ED Physician Chavez Marie HPI: 04/03 01:11 This 39 yrs old Female presents to ER via EMS with complaints of Abdominal ec2 Pain. 01:11 Patient arrives today for evaluation of right-sided abdominal pain. Patient reports ec2 that she has been experiencing worsening abdominal pain. Patient reports some associated nausea without vomiting. No diarrhea symptoms. reports some foul smelling urine. 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/08/2024, unknown lg3 Historical: - Allergies: 00:16 Bactrim; lg3 00:16 mycins; lg3 00:16 PENICILLINS; lg3 00:16 Sulfa (Sulfonamide Antibiotics); lg3 - Home Meds: 02:32 albuterol sulfate 90 mcg/actuation Inhl HFA Aerosol Inhaler [Active]; Xanax 1 mg Oral kj2 tablet [Active]; - PMHx: 00:16 Anemia; Anxiety; Asthma; Bipolar disorder; Blood transfusions; cardiac arrest; lg3 depressive disorder; Hypertension; Hypothyroidism; NIDDM; - PSHx: 00:16 Appendectomy; breast; section; dilation and curettage; hernia repair; lg3 Tonsillectomy; tubal ligation; - Immunization history:: Adult Immunizations up to date. - Infectious Disease History:: Denies. - Social history:: Smoking status: Patient denies any tobacco usage or history of. Patient/guardian denies using alcohol, street drugs. ROS: 01:11 Constitutional: as per hpi ec2 Exam: 01:11 Constitutional: Little boy GEN: NAD Head: atraumatic Eyes: EOMI Ears: External ears ec2 are normal. CV: regular rate LUNGS: no respiratory distress ABD: non-distended, soft, minimally tender in the right abdomen, not guarding SKIN: no evidence of rashes MSK: no evidence of trauma Vital Signs: 00:13 BP 118 / 47; Pulse 81; Resp 16 S; Temp 97.9(O); Weight 152.41 kg (R); Height 5 ft. 5 lg3 in. (R); Pain 03/03; 00:30 BP 145 / 98; Pulse 78; Resp 18; Temp 98; Pulse Ox 100% on R/A; kj2 02:00 BP 153 / 126; Pulse 75; Pulse Ox 97% ; oh1 02:36 BP 150 / 90; Pulse 74; Resp 20; Temp 98(O); Pulse Ox 100% ; kj2 00:13 Body Mass Index 55.91 (152.41 kg, 165.1 cm) lg3 00:13 Pain Scale: Adult lg3 MDM: 00:14 Medical Screening Exam initiated ec2 01:11 Data reviewed: vital signs. ED course: Patient arrives today for abdominal pain. ec2 Emanation remarkable for abdominal findings as above. Will obtain lab work and CT imaging. Differential clues gastritis, pancreatitis, urinary tract infection.. 02:23 ED course: CT imaging is nonactionable. Hernia noted, constipation as well as fatty ec2 liver and soft tissue edema noted. Will discharge home have the patient follow-up with PCP. Return precautions given.. 02:24 ED course: Metabolic profile is nonactionable. Lipase within normal ranges. Troponin ec2 within normal ranges.. 02:39 ED course: EKG independently reviewed and interpreted by me, shows normal sinus rhythm ec2 with a rate of 73, no acute ST segment elevations, intervals are nonactionable.. 11 00:15 Order name: CBC with Diff; Complete Time: 02:12 ec2 04/03 00:15 Order name: CMP; Complete Time: 02:24 ec2 04/03 00:15 Order name: Lipase; Complete Time: 02:24 ec2 04/03 00:15 Order name: Test, Urine; Complete Time: 02:46 ec2 04/03 00:15 Order name: Urinalysis w/ reflexes; Complete Time: 02:46 ec2 04/03 00:24 Order name: BNP; Complete Time: 02:24 ec2 04/03 00:25 Order name: Troponin High Sensitivity; Complete Time: 02:24 ec2 04/03 01:20 Order name: Abdomen EDMS 04/03 00:15 Order name: IV Saline Lock; Complete Time: 02:38 ec2 04/03 00:15 Order name: Labs collected and sent; Complete Time: 02:03 ec2 11/10 00:25 Order name: EKG - Nurse/Tech; Complete Time: 02:39 ec2 Administered Medications: 00:40 Drug: Ondansetron IVP 4 mg IVP once; over 2 minutes Route: IVP; Site: right antecubital;kj2 02:29 Follow up: Response: No adverse reaction kj2 00:40 Drug: morphine IVP or IV 4 mg IVP once over 4 mins Route: IVP; Infused Over: 4 mins; kj2 Site: right antecubital; 02:30 Follow up: Response: No adverse reaction kj2 00:40 Drug: NS 0.9% IV 1000 ml IV at 1 bolus Per protocol; to be given as a bolus over 60 kj2 minutes Route: IV; Rate: 1 bolus; Site: right antecubital; 02:30 Follow up: Response: No adverse reaction kj2 02:31 Follow up: IV Intake: 1000ml kj2 Disposition Summary: 04/03/24 02:24 Discharge Ordered Notes: Location: Home ec2 Condition: Stable ec2 Diagnosis - Abdominal pain, unspecified ec2 - Anemia, unspecified ec2 - Generalized edema ec2 Followup: ec2 - With: Private Physician - When: - Reason: Re-evaluation by your physician Discharge Instructions: - Discharge Summary Sheet ec2 - Constipation, Adult, [id number] ec2 Forms: - Medication Reconciliation Form ec2 - Antibiotic Education ec2 - Prescription Opioid Use ec2 - Patient Portal Instructions ec2 - Leadership Thank You Letter ec2 Signatures: Dispatcher [employer] Nita Saldaña RN RN lg3 Chavez Marie MD MD ec2 Ashley Martines RN RN kj2 Corrections: (The following items were deleted from the chart) 01:17 01:15 Abdomen Pelvis W Con+CT.RAD.BRZ ordered. EDMS FLORES
--- NOTE | 2024-04-03 02:25 | ER ---
Nurse's Notes [facility] Name: Rachael Knox Age: 39 yrs Sex: Female : 1985 Arrival Date: 04/03/2024 Time: 00:12 Bed 18 Private MD: Diagnosis: Abdominal pain, unspecified;Anemia, unspecified;Generalized edema Presentation: 04/03 00:13 Chief complaint: Patient states: right lower abdominal pain since yesterday and lg3 worsening. Coronavirus screen: Client denies travel out of the [place] in the last 14 days. At this time, the client does not indicate any symptoms associated with coronavirus-19. Ebola Screen: No symptoms or risks identified at this time. Initial Sepsis Screen: Does the patient meet any 2 criteria? No. Patient's initial sepsis screen is negative. Does the patient have a suspected source of infection? No. Patient's initial sepsis screen is negative. Risk Assessment: Do you want to hurt yourself or someone else? Patient reports no desire to harm self or others. Onset of symptoms was April 01, 2024. 00:13 Method Of Arrival: EMS: [facility] lg3 00:13 Acuity: ADRSHAN 3 lg3 Triage Assessment: 00:16 General: Appears in no apparent distress. uncomfortable, Behavior is calm, cooperative. lg3 Pain: Complains of pain in right upper quadrant and right lower quadrant Also complains of decreased appetite, nausea. EENT: No deficits noted. No signs and/or symptoms were reported regarding the EENT system. Neuro: Gan Agitation-Sedation Scale (RASS): 0 - Alert and Calm Level of Consciousness is awake, alert, obeys commands, Oriented to person, place, time, situation. Cardiovascular: No deficits noted. Denies chest pain, shortness of breath, Capillary refill < 3 seconds Clubbing of nail beds is absent JVD is absent Patient's skin is warm and dry. Respiratory: No deficits noted. Airway is patent Trachea midline Respiratory effort is even, unlabored, Respiratory pattern is regular, symmetrical. GI: Abdomen is round non-distended, obese, Abd is soft X 4 quads Abdomen is tender to palpation in right upper quadrant and right lower quadrant Reports lower abdominal pain, nausea. : Reports foul smelling urine. Derm: No deficits noted. No signs and/or symptoms reported regarding the dermatologic system. Skin is intact, is healthy with good turgor, Skin is dry, Skin is normal, Skin temperature is warm. Musculoskeletal: No deficits noted. No signs and/or symptoms reported regarding the musculoskeletal system. Circulation, motion, and sensation intact. Range of motion: intact in all extremities. VEGETABLE TESTER: 00:16 LMP 03/08/2024, unknown lg3 Historical: - Allergies: 00:16 Bactrim; lg3 00:16 mycins; lg3 00:16 PENICILLINS; lg3 00:16 Sulfa (Sulfonamide Antibiotics); lg3 - Home Meds: 02:32 albuterol sulfate 90 mcg/actuation Inhl HFA Aerosol Inhaler [Active]; Xanax 1 mg Oral kj2 tablet [Active]; - PMHx: 00:16 Anemia; Anxiety; Asthma; Bipolar disorder; Blood transfusions; cardiac arrest; lg3 depressive disorder; Hypertension; Hypothyroidism; NIDDM; - PSHx: 00:16 Appendectomy; breast; section; dilation and curettage; hernia repair; lg3 Tonsillectomy; tubal ligation; - Immunization history:: Adult Immunizations up to date. - Infectious Disease History:: Denies. - Social history:: Smoking status: Patient denies any tobacco usage or history of. Patient/guardian denies using alcohol, street drugs. Screenin:30 [facility] ED Fall Risk Assessment (Adult) History of falling in the last 3 months, kj2 including since admission No falls in past 3 months (0 pts) Confusion or Disorientation No (0 pts) Intoxicated or Sedated No (0 pts) Impaired Gait No (0 pts) Mobility Assist Device Used No (0 pt) Altered Elimination No (0 pt) Score/Fall Risk Level 0 - 2 = Low Risk Maintained a safe environment, Hourly rounding (assess needs \T\ fall precautionary measures) done. Abuse screen: Denies threats or abuse. Denies injuries from another. Nutritional screening: No deficits noted. Tuberculosis screening: No symptoms or risk factors identified. Assessment: 00:20 General: Appears uncomfortable, Behavior is calm, cooperative. Pain: Complains of pain kj2 in abdomen and right lower quadrant and right upper quadrant Pain currently is 8 out of 10 on a pain scale. Neuro: Level of Consciousness is awake, alert, obeys commands, Oriented to person, place, time, situation. Cardiovascular: Patient's skin is warm and dry. Respiratory: Airway is patent Respiratory effort is even, unlabored. GI: Reports lower abdominal pain, upper abdominal pain, Pain is 8 out of 10 on a pain scale. : No signs and/or symptoms were reported regarding the genitourinary system. 01:50 Reassessment: Patient appears in no apparent distress at this time. Patient and/or kj2 family updated on plan of care and expected duration. Pain level reassessed. Patient is alert, oriented x 3, equal unlabored respirations, skin warm/dry/pink. 02:31 Reassessment: Patient appears in no apparent distress at this time. Patient and/or kj2 family updated on plan of care and expected duration. Pain level reassessed. Patient is alert, oriented x 3, equal unlabored respirations, skin warm/dry/pink. Vital Signs: 00:13 BP 118 / 47; Pulse 81; Resp 16 S; Temp 97.9(O); Weight 152.41 kg (R); Height 5 ft. 5 lg3 in. (R); Pain 10/10; 00:30 BP 145 / 98; Pulse 78; Resp 18; Temp 98; Pulse Ox 100% on R/A; kj2 02:00 BP 153 / 126; Pulse 75; Pulse Ox 97% ; oh1 02:36 BP 150 / 90; Pulse 74; Resp 20; Temp 98(O); Pulse Ox 100% ; kj2 00:13 Body Mass Index 55.91 (152.41 kg, 165.1 cm) lg3 00:13 Pain Scale: Adult lg3 ED Course: 00:12 Patient arrived in ED. lg3 00:14 Chavez Marie MD is Attending Physician. ec2 00:16 Triage completed. lg3 00:16 Arm band placed on right wrist. lg3 00:30 Patient has correct armband on for positive identification. Placed in gown. Bed in low kj2 position. Call light in reach. Side rails up X 1. Provided Education on: call light. 00:32 Ashley Martines, RN is Primary Nurse. kj2 01:20 Abdomen In Process Unspecified. EDMS 01:39 Inserted saline lock: 20 gauge in right antecubital area, using aseptic technique. oh1 Blood collected. Flushed with 10 mL NS. 02:33 No provider procedures requiring assistance completed. IV discontinued, intact, kj2 bleeding controlled, No redness/swelling at site. Pressure dressing applied. 02:39 Client placed on continuous cardiac and pulse oximetry monitoring. NIBP monitoring kj2 applied. monitoring and evaluation advisor on. 02:39 EKG done, by solar energy technician. kj2 Administered Medications: 00:40 Drug: Ondansetron IVP 4 mg IVP once; over 2 minutes Route: IVP; Site: right antecubital;kj2 02:29 Follow up: Response: No adverse reaction kj2 00:40 Drug: morphine IVP or IV 4 mg IVP once over 4 mins Route: IVP; Infused Over: 4 mins; kj2 Site: right antecubital; 02:30 Follow up: Response: No adverse reaction kj2 00:40 Drug: NS 0.9% IV 1000 ml IV at 1 bolus Per protocol; to be given as a bolus over 60 kj2 minutes Route: IV; Rate: 1 bolus; Site: right antecubital; 02:30 Follow up: Response: No adverse reaction kj2 02:31 Follow up: IV Intake: 1000ml kj2 Medication: 02:32 VIS not applicable for this client. kj2 Intake: 02:31 IV: 1000ml; Total: 1000ml. kj2 Outcome: 02:24 Discharge ordered by . ec2 02:33 Discharged to home ambulatory, kj2 02:33 Condition: stable 02:33 Discharge instructions given to Instructed on Demonstrated understanding of instructions, follow-up care, 02:52 Patient left the ED. kj2 Signatures: Dispatcher [employer] Nita Saldaña RN RN lg3 Chavez Marie MD MD ec2 Ashley Martines RN RN kj2 Svetlana Welch oh1
[2024-04-03 02:44] LABS: Specific Gravity 1.028 (1.005-1.030)
[2024-04-03 02:45] LABS: Specific Gravity 1.028 (1.005-1.030); Sqamous Epithelial >50 /HPF (None Seen); Urine Bacteria 20-50 /HPF (<20); Urine Bilirubin NEGATIVE (Negative); Urine Blood 1+ (Negative); Urine Clarity Extremely Turbid (Clear); Urine Color Yellow (Yellow); Urine Culture Reflex Order NOT NEEDED; Urine Glucose NEGATIVE (Negative); Urine Ketones NEGATIVE (Negative); Urine Microscopic Reflex YN ORDER UMIC; Urine Mucus 4+ /HPF (None Seen); Urine Nitrite NEGATIVE (Negative); Urine Protein 1+ (Negative); Urine RBC <5 /HPF (None Seen); Urine Urobilinogen 2+ (Normal); Urine WBC None Seen /HPF (<5)
[2024-04-03 03:26] VITALS: TEMP 98
[2024-04-03 03:38] VITALS: BP 150/90; O2SAT 100
--- NOTE | 2024-04-03 03:44 | RAD REPORT ---
EXAM DESCRIPTION: CT ABDOMEN PELVIS WITHOUT IV CONTRAST 04/03/2024 1:54 AM SUPPORT STAFF CLINICAL HISTORY: 39 years, Female, Right sided abdominal pain. COMPARISON: CT Abdomen Pelvis 05/04/2022. PROCEDURE: Noncontrast images of the abdomen and pelvis were performed from the lung bases to the ischial tubero sities. In addition multiplanar reformats in the coronal and sagittal plane were obtained and reviewed. An individualized dose optimization technique, Automated Exposure Control, was utilized for the perfo rmed procedure. FINDINGS: The lack of IV contrast limits evaluation of solid organs, subtle lesions cannot be exclude d. Lung bases: The lung bases demonstrated presence of mild elevation of the right hemidiaphragm with co mpressive atelectatic changes posterior CP CP angle.. Liver: The liver demonstrates decreased attenuation corresponding to mild fatty infiltration. Gallbladder: Grossly the unopacified gallbladder demonstrate to be normal. Adrenal glands: Grossly the unopacified adrenal glands demonstrate to be normal. Pancreas: Grossly the unopacified pancreas demonstrate to be normal Spleen: The spleen demonstrate to be normal. Kidneys: Grossly the unopacified kidneys demonstrate to be within normal limits. There is a lower p ole left renal calculus measuring 3 mm on image 51. There is no evidence for hydronephrosis and/or hydroureter. There is questionable speckle of calculus within the upper pole right kidney on axial im age 49 and mid/lower pole on axial image 52. GI: Grossly the unopacified stomach, small bowel and large bowel demonstrate to be within normal limi ts. No evidence for bowel dilatation and/or free air. Surgical suture within the right lower quadrant/cecum correspond to previous appendectomy. The large bowel demonstrate fecal residue suggest ing mild fecal stasis. : The urinary bladder demonstrate to be suboptimal distention limiting diagnostic value. Genitalia: The uterus demonstrate to be within normal limits. There is a right lower quadrant right a dnexal cystic lesion measuring 6.2 x 4.2 cm on axial image 91. Abdominal aorta: The aorta demonstrate demonstrate to be within normal limits. Retroperitoneum: There is no retroperitoneal lymphadenopathy. There is no evidence for ascites. There is minimal haziness within the peritoneal fat. Findings are nonspecific. Early edema/fluid could be of consideration. Bones: The bony structures demonstrate to be within normal limits. No evidence for compression deform ity and/or significant skeletal lesions. Soft tissues: There is minimal haziness within the skin/subcutaneous tissue suggestive the possibilit y of edema. There is a anterior abdominal wall umbilical hernia containing omentum and small amount of fluid on axial image 69 and sagittal image 86. IMPRESSION: Right adnexal simple-appearing cyst measuring 6.2 cm, not adequately characterized. Recommend prompt follow-up with pelvic ultrasound. Reference: JACR 2019;17(2):248-254 Anterior abdominal wall umbilical hernia containing omentum and small amount of fluid. Mild fecal stasis. Mild fatty infiltration of the liver. Minimal haziness within the skin/subcutaneous tissue suggestive the possibility of edema. Bilateral nephrolithiasis. No evidence for hydronephrosis and/or hydroureter. Minimal haziness within the peritoneal fat. Findings are nonspecific. Early edema/fluid could be of c onsideration. Mild elevation of the right hemidiaphragm with compressive atelectatic changes posterior CP angle. Electronically signed by: Jose Edwards MD 04/03/2024 02:19 AM [facility] Due to temporary technical issues with the PACS/Videoflot reporting system, reports are being gabo d by the in-house radiologist without review as a courtesy to ensure prompt reporting the interpreting radiologist is fully responsible for the content of the report. Transcribed Date/Time: 04/03/2024 3:44 AM
--- NOTE | 2024-04-04 12:06 | EKG ---
Test Date: 2024-04-03 Test Time: 02:36:58 Traveling Crane Operator: LIZ MEASUREMENT RESULTS: Intervals: Rate: 73 RI: QRSD: 96 QT: 366 QTc: 403 Wayne: P: RI: QRS: 38 T: 222 INTERPRETIVE STATEMENTS: Accelerated Junctional rhythm Low voltage QRS Abnormal ECG Compared to ECG 03/10/2024 20:21:05 Accelerated junctional rhythm now present Sinus rhythm no longer present Myocardial infarct finding no longer present Electronically Signed On 04-04-24 12:05:20 [employer] by Reza Gómez
== END 2024-04-03 02:52 | disposition home or self-care (01) ==
LOC: ER 00:12
DX: R10.31 Right lower quadrant pain (principal); D64.9 Anemia, unspecified; R60.1 Generalized edema
CPT/HCPCS: 36415; 74176; 80053; 81001; 81025; 83690; 83880; 84484; 85025; 93005; 96374; 96375; 99285; J2405; J7030

== ENCOUNTER 2024-06-09 20:33 | Inpatient (IN) | payer SELFPAY ==
[2024-06-09] MEDS ORDERED: METHYLPREDNISOLONE 125 MG INJ ONE (21:05)
[2024-06-09] MEDS ORDERED: ALBUTEROL 2.5 MG/3 ML NEB SOL ONE (21:05)
[2024-06-09] MEDS ORDERED: IPRATROPIUM BROM 0.5MG/2.5ML ONE (21:05)
[2024-06-09 21:36] LABS: Absolute Basophils 0.1 K/uL (0-0.5); Absolute Eosinophils 0.4 K/uL (0-0.5); Absolute Lymphocytes (CBC) 1.4 K/uL (0.7-4.9); Absolute Monocytes 0.5 K/uL (0.1-1.3); Absolute Neutrophil 6.1 K/uL (1.8-8.0); Basophils % 1.5 % (0-1.3); Eosinophils % 4.9 % (0-4.4); Hematocrit 22.7 % (36.0-45.0); Lymphocytes % 16.7 % (15.3-44.8); MCH 24.4 pg (27.0-35.0); MCHC 30.9 g/dL (32.0-36.0); MCV 78.8 fL (80-100); MPV 7.8 fL (7.6-11.3); Monocytes % 6.3 % (3.3-12.3); Neutrophils % 70.6 % (41.7-73.7); Nucleated Red Blood Cells % 0.2 % (0-0); Platelets 344 thou/uL (152-406); RBC Red Blood Cell Count 2.88 M/uL (3.86-4.86); Red Cell Distribution Width 16.7 % (12.1-15.2)
--- NOTE | 2024-06-09 21:47 | RAD REPORT ---
EXAM: Chest Single View HISTORY: CHEST PAIN COMPARISON: 03/10/2024 FINDINGS: LUNGS/PLEURA: Linear opacities in the right lung base. MEDIASTINUM: The mediastinal silhouette is within normal limits. CARDIAC: Stable size and configuration. UPPER ABDOMEN: No significant abnormality. BONES: No acute abnormality. LINES/TUBES/OTHER: N/A IMPRESSION: Increased prominence of linear right basilar opacities. The patient does have chronic atelectasis at this location though a mild superimposed pneumonia would be difficult to exclude radiographically.
[2024-06-09 21:57] LABS: ALT/SGPT 25 U/L (13-56); AST/SGOT 27 U/L (15-37); Albumin/Globulin Ratio 1.1 (1.1-1.8); Alkaline Phosphatase 48 U/L (45-117); Anion Gap 6.7 mEq/L (5.0-15.0); BUN Blood Urea Nitrogen 13 mg/dL (7-18); Bicarbonate 30 mEq/L (21-32); Bilirubin Total 0.4 mg/dL (0.2-1.0); Globulin 3.8 g/dL (2.3-3.5); Glomerular Filtration Rate 65 ml/min (=/>90); Glucose Level 96 mg/dL (74-106); Potassium 3.7 mEq/L (3.5-5.1); Protein, Total 7.8 g/dL (6.4-8.2); Sodium Level 136 mEq/L (136-145); Troponin High Sensitivity 3.8 pg/mL (<58.9)
[2024-06-09 22:07] LABS: Bilirubin Direct < 0.2 mg/dL (0-0.2); Bilirubin Indirect, Calculated 0.2 mg/dL (0.2-0.8)
[2024-06-09 23:18] LABS: Sqamous Epithelial <5 /HPF (None Seen); Urine Bacteria 20-50 /HPF (<20); Urine Micro Reflex YN NO BILL MICROSCOPIC; Urine Mucus 4+ /HPF (None Seen); Urine RBC <5 /HPF (None Seen); Urine WBC <5 /HPF (<5)
[2024-06-09 23:19] LABS: Specific Gravity 1.029 (1.005-1.030); Urine Bilirubin NEGATIVE (Negative); Urine Blood 2+ (Negative); Urine Clarity Extremely Turbid (Clear); Urine Color Yellow (Yellow); Urine Glucose NEGATIVE (Negative); Urine Ketones NEGATIVE (Negative); Urine Nitrite NEGATIVE (Negative); Urine Protein 1+ (Negative); Urine Urobilinogen Normal (Normal)
--- NOTE | 2024-06-09 23:32 | EDPHYS ---
Physician Documentation [facility] Name: Rachael Knox Age: 39 yrs Sex: Female : 1985 Arrival Date: 06/09/2024 Time: 20:33 Bed 16 Private MD: ED Physician Donato Martin HPI: 06/09 23:21 This 39 yrs old Female presents to ER via EMS with complaints of Shortness Of sp4 Breath. 06/10 06:02 Patient with morbid obesity anemia anxiety asthma bipolar disorder transfusion sp4 dependent anemia presents with acute shortness of breath and wheezing.. 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 COPIER: 06/09 20:51 unknown bm8 Historical: - Allergies: 20:51 Bactrim; bm8 20:51 mycins; bm8 20:51 PENICILLINS; bm8 20:51 Sulfa (Sulfonamide Antibiotics); bm8 - Home Meds: 20:51 albuterol sulfate 90 mcg/actuation Inhl HFA Aerosol Inhaler [Active]; Xanax 1 mg Oral bm8 Tablet [Active]; - PMHx: 20:51 Anemia; Anxiety; Asthma; Bipolar disorder; Blood transfusions; cardiac arrest; bm8 depressive disorder; Hypertension; Hypothyroidism; NIDDM; - PSHx: 20:51 Appendectomy; breast; section; dilation and curettage; hernia repair; bm8 Tonsillectomy; tubal ligation; - Immunization history:: Adult Immunizations up to date. - Infectious Disease History:: Denies. - Social history:: Smoking status: Patient denies any tobacco usage or history of. - Family history:: not pertinent. ROS: 06/10 06:02 Constitutional: Negative for fever, chills, and weight loss, positive shortness of sp4 breath, positive wheezing, positive generalized weakness All other systems are negative, Exam: 06:02 Constitutional: This is a well developed, well nourished patient who is awake, sp4 positive for morbid obesity, overweight female with dyspnea, tachypnea, generalized pallor, Head/Face: Normocephalic, atraumatic. Eyes: Pupils equal round and reactive to light, extra-ocular motions intact. Lids and lashes normal. Conjunctiva and sclera are not injected. Cornea within normal limits. Periorbital areas with no swelling, redness, or edema. ENT: Nares patent. No nasal discharge, no septal abnormalities noted. Tympanic membranes are normal and external auditory canals are clear. Oropharynx with no redness, swelling, or masses, exudates, or evidence of obstruction, uvula midline. Mucous membranes moist. Neck: Trachea midline, no thyromegaly or masses palpated, and no cervical lymphadenopathy. Supple, full range of motion without nuchal rigidity, or vertebral point tenderness. Chest/axilla: Normal chest wall appearance and motion. Nontender with no deformity. No lesions are appreciated. Cardiovascular: Regular rate and rhythm with a normal S1 and S2. No gallops, murmurs, or rubs. Normal PMI, no JVD. No pulse deficits. Respiratory: Lungs have equal breath sounds bilaterally, clear to auscultation and percussion. No rales, rhonchi or wheezes noted. No increased work of breathing, no retractions or nasal flaring. Abdomen/GI: Soft, with normal bowel sounds. No distension or tympany. No guarding or rebound. No evidence of tenderness throughout. Back: No spinal tenderness. No costovertebral tenderness. Skin: Warm, dry with normal turgor. Generalized pallor without rashes. MS/ Extremity: Pulses equal, no cyanosis. Neurovascular intact. Full, normal range of motion. Neuro: Awake and alert, GCS 15, oriented to person, place, time, and situation. Cranial nerves II-XII grossly intact. Motor strength 5/5 in all extremities. Sensory grossly intact. Psych: Awake, alert, with orientation to person, place and time. Behavior, mood, and affect are within normal limits 06:02 ECG was reviewed by the Attending Physician. 2122 EKG normal sinus rhythm rate 91 Vital Signs: 06/09 20:50 BP 125 / 72; Pulse 91; Resp 20; Temp 97.6; Pulse Ox 79% ; Weight 160.12 kg; Height 5 bm8 ft. 5 in. ; Pain 0/10; 21:52 BP 120 / 71; Pulse 70; Resp 18; Pulse Ox 100% on 4 lpm NC; Pain 0/10; rg5 22:39 BP 135 / 77; Pulse 73; Resp 18; Temp 98(O); Pulse Ox 93% ; Pain 0/10; rg5 23:16 BP 114 / 59; Pulse 76; Resp 18; Temp 98; Pain 0/10; rg5 06/10 01:00 BP 115 / 65; Pulse 73; Resp 18; Pulse Ox 94% on 4 lpm NC; rg5 06/09 20:50 Body Mass Index 58.74 (160.12 kg, 165.1 cm) bm8 06/09 20:50 Pain Scale: Adult bm8 21:52 Pain Scale: Adult rg5 22:39 Pain Scale: Adult rg5 23:16 Pain Scale: Adult rg5 Whitmer Coma Score: 06:02 Eye Response: spontaneous(4). Motor Response: obeys commands(6). Verbal Response: sp4 oriented(5). Total: 15. MDM: 06/09 21:20 Medical Screening Exam initiated sp4 23:20 ED course: Exam Date: 06/09/24 EXAM: Chest Single View HISTORY: CHEST PAIN COMPARISON: sp4 03/10/2024 FINDINGS: LUNGS/PLEURA: Linear opacities in the right lung base. MEDIASTINUM: The mediastinal silhouette is within normal limits. CARDIAC: Stable size and configuration. UPPER ABDOMEN: No significant abnormality. BONES: No acute abnormality. LINES/TUBES/OTHER: N/A IMPRESSION: Increased prominence of linear right basilar opacities. The patient does have chronic atelectasis at this location though a mild superimposed pneumonia would be difficult to exclude radiographically. . 06/10 06:05 Differential diagnosis: Anemia Anxiety Reaction asthma, Bronchitis CHF exacerbation, sp4 Chronic Obstructive Pulmonary Disease Myocardial Infarction. Data reviewed: vital signs, nurses notes, EMS record, lab test result(s), EKG, radiologic studies, plain films. Consideration of Admission/Observation Patient was admitted/placed on observation. Escalation of care including admission/observation considered. Management of patient was discussed with the following: Hospitalist: Sabi HOPKINS . ED course: EXAM: Chest Single View HISTORY: CHEST PAIN COMPARISON: 03/10/2024 FINDINGS: LUNGS/PLEURA: Linear opacities in the right lung base. MEDIASTINUM: The mediastinal silhouette is within normal limits. CARDIAC: Stable size and configuration. UPPER ABDOMEN: No significant abnormality. BONES: No acute abnormality. LINES/TUBES/OTHER: N/A IMPRESSION: Increased prominence of linear right basilar opacities. The patient does have chronic atelectasis at this location though a mild superimposed pneumonia would be difficult to exclude radiographically. . 06:07 ED course: Blood transfusion ordered 2 units PRBC for symptomatic anemia. Blood sp4 transfusion started in ER.. 06/09 20:47 Order name: Urinalysis W/Microscopic; Complete Time: 23:21 4 06/09 20:47 Order name: Test, Urine; Complete Time: 23:21 4 06/09 20:47 Order name: Influenza Screen (a \T\ B); Complete Time: 23:21 4 06/09 20:53 Order name: Basic Metabolic Panel; Complete Time: 23:21 4 06/09 20:53 Order name: CBC with Diff; Complete Time: 23:21 [facility] 06/09 20:53 Order name: LFT's; Complete Time: 23:21 4 06/09 20:53 Order name: Troponin HS; Complete Time: 23:21 4 06/09 23:21 Order name: Type And Screen [facility] 06/09 23:21 Order name: PRBC [facility] 06/09 23:24 Order name: ABO/RH typing [facility] 06/09 23:24 Order name: Antibody Screen [facility] 06/09 23:27 Order name: Blood Culture Adult (2) [facility] 06/09 23:53 Order name: Lactate w/ 2H reflex if indic. [facility] 06/09 23:53 Order name: Magnesium [facility] 06/09 23:53 Order name: NT PRO-BNP [facility] 06/09 23:53 Order name: Phosphorus [facility] 06/09 23:53 Order name: Basic Metabolic Panel [facility] 06/09 23:53 Order name: Basic Metabolic Panel [facility] 06/09 23:53 Order name: CBC with Automated Diff [facility] 06/09 23:53 Order name: CBC with Automated Diff [facility] 06/09 23:53 Order name: Lipid Profile [facility] 06/09 23:53 Order name: Lipid Profile [facility] 06/09 23:53 Order name: Sputum Culture [facility] 06/09 20:53 Order name: XRAY Chest (1 view); Complete Time: 23:21 [facility] 06/10 00:03 Order name: Occupational Therapy Consult [facility] 06/10 00:03 Order name: Physical Therapy Consult [facility] 06/09 20:53 Order name: Cardiac monitoring; Complete Time: : sp4 06/09 20:53 Order name: EKG - Nurse/Tech; Complete Time: : sp4 06/09 20:53 Order name: IV Saline Lock; Complete Time: sp4 06/09 20:53 Order name: Labs collected and sent; Complete Time: : sp4 06/09 20:53 Order name: O2 Per Protocol; Complete Time: sp4 06/09 20:53 Order name: O2 Sat Monitoring; Complete Time: : sp4 EC/16 21:23 Rate is 91 beats/min. Rhythm is regular, Normal Sinus Rhythm. QRS [place] is Normal. SD sp4 interval is normal. QRS interval is normal. QT interval is normal. No Q waves. T waves are Normal. No ST changes noted. Clinical impression: No evidence of ischemia. Interpreted by me. Reviewed by me. Administered Medications: 21:10 Drug: Albuterol Inhalation 2.5 mg Inhalation every 20 minutes x3 Route: Inhalation; rg5 21:10 Drug: Ipratropium Inhalation Aerosol 0.5 mg Inhalation once; Every 20 min for a total rg5 of 3 treatments x3 Route: Inhalation; 21:18 Drug: MethylPrednisoLONE IVP 125 mg IVP once Route: IVP; Site: right antecubital; rg5 21:50 Follow up: Response: No adverse reaction rg5 21:30 Drug: Albuterol Inhalation 2.5 mg Inhalation every 20 minutes x3 Route: Inhalation; rg5 21:30 Follow up: Response: No adverse reaction rg5 21:30 Drug: Ipratropium Inhalation Aerosol 0.5 mg Inhalation once; Every 20 min for a total rg5 of 3 treatments x3 Route: Inhalation; 22:00 Drug: Ipratropium Inhalation Aerosol 0.5 mg Inhalation once; Every 20 min for a total rg5 of 3 treatments x3 Route: Inhalation; 22:10 Drug: Albuterol Inhalation 2.5 mg Inhalation every 20 minutes x3 Route: Inhalation; rg5 06/10 00:50 Drug: Rocephin - Rocephin (cefTRIAXone) IVPB 1 grams IVPB once over 30 mins; (mix in 50 rg5 mL NS) Route: IVPB; Infused Over: 30 mins; Site: right antecubital; 01:30 Follow up: IV Status: Completed infusion; IV Intake: 50ml rg5 01:36 Drug: Zithromax IVPB 500 mg IVPB once over 1 hrs; mix in 250 mL NS Route: IVPB; Infused rg5 Over: 1 hrs; Site: left antecubital; 02:30 Follow up: IV Status: Completed infusion; IV Intake: 250ml rg5 Disposition: 06:06 Critical Care:. sp4 Disposition Summary: 06/09/24 23:31 Hospitalization Ordered Notes: Hospitalization Status: Observation sp4 Provider: Prince charo Celestin4 Location: Telemetry/MedSurg (observation) sp4 Condition: Stable sp4 Problem: new sp4 Symptoms: have improved sp4 Bed/Room Type: Standard sp4 Room Assignment: 202(06/09/24 23:57) lg3 Diagnosis - Mild persistent asthma with (acute) exacerbation sp4 - Acute hypoxemia, acute asthma exacerbation, acute on chronic anemia, symptomatic sp4 anemia, right lower lung pneumonia Forms: - Medication Reconciliation Form sp4 - SBAR form sp4 - Leadership Thank You Letter sp4 Critical care time excluding procedures: 06:06 Critical care time: Bedside Care: 36 minutes, Consultation: 12 minutes. Total time: 48 sp4 minutes Signatures: Dispatcher [employer] Nita Saldaña RN RN lg3 Donato Martin MD MD sp4 Izaiah Riggins, RN RN bm8 Robert Gerard, VITA RN rg5 Corrections: (The following items were deleted from the chart) 06/09 20:54 20:54 Chest Single View+RAD.RAD.BRZ ordered. EDMS EDMS 23:27 23:27 BLOOD CULTURE*+BA.LAB.BRZ ordered. EDMS EDMS 23:57 23:31 sp4 lg3
--- NOTE | 2024-06-09 23:32 | ER ---
Nurse's Notes [facility] Name: Rachael Knox Age: 39 yrs Sex: Female : 1985 Arrival Date: 06/09/2024 Time: 20:33 Bed 16 Private MD: Diagnosis: Mild persistent asthma with (acute) exacerbation;Acute hypoxemia, acute asthma exacerbation, acute on chronic anemia, symptomatic anemia, right lower lung pneumonia Presentation: 06/09 20:50 Chief complaint: Patient states: my asthma is acting up. Coronavirus screen: At this bm8 time, the client does not indicate any symptoms associated with coronavirus-19. Ebola Screen: Patient negative for fever greater than or equal to 101.5 degrees Fahrenheit, and additional compatible Ebola Virus Disease symptoms Patient denies exposure to infectious person. Patient denies travel to an Ebola-affected area in the 21 days before illness onset. No symptoms or risks identified at this time. Initial Sepsis Screen: Does the patient meet any 2 criteria? No. Patient's initial sepsis screen is negative. Does the patient have a suspected source of infection? No. Patient's initial sepsis screen is negative. 20:50 Method Of Arrival: EMS: [facility] bm8 20:50 Risk Assessment: Do you want to hurt yourself or someone else? Patient reports no bm8 desire to harm self or others. Onset of symptoms was June 09, 2024 at 12:00. 20:50 Acuity: DARSHAN 2 bm8 Triage Assessment: 20:51 General: Appears in no apparent distress. uncomfortable, Behavior is calm, cooperative, bm8 appropriate for age. Pain: Denies pain. Respiratory: Reports shortness of breath labored breathing Airway is patent Respiratory effort is labored, Respiratory pattern is hypoventilation Onset: The symptoms/episode began/occurred this morning, the patient has severe shortness of breath. SERVICE PERSON: 20:51 unknown bm8 Historical: - Allergies: 20:51 Bactrim; bm8 20:51 mycins; bm8 20:51 PENICILLINS; bm8 20:51 Sulfa (Sulfonamide Antibiotics); bm8 - Home Meds: 20:51 albuterol sulfate 90 mcg/actuation Inhl HFA Aerosol Inhaler [Active]; Xanax 1 mg Oral bm8 Tablet [Active]; - PMHx: 20:51 Anemia; Anxiety; Asthma; Bipolar disorder; Blood transfusions; cardiac arrest; bm8 depressive disorder; Hypertension; Hypothyroidism; NIDDM; - PSHx: 20:51 Appendectomy; breast; section; dilation and curettage; hernia repair; bm8 Tonsillectomy; tubal ligation; - Immunization history:: Adult Immunizations up to date. - Infectious Disease History:: Denies. - Social history:: Smoking status: Patient denies any tobacco usage or history of. - Family history:: not pertinent. Screenin:00 [facility] ED Fall Risk Assessment (Adult) History of falling in the last 3 months, rg5 including since admission No falls in past 3 months (0 pts) Confusion or Disorientation No (0 pts) Intoxicated or Sedated No (0 pts) Impaired Gait No (0 pts) Mobility Assist Device Used No (0 pt) Altered Elimination No (0 pt) Score/Fall Risk Level 0 - 2 = Low Risk Oriented to surroundings, Maintained a safe environment, Hourly rounding (assess needs \T\ fall precautionary measures) done. 21:00 Abuse screen: Denies threats or abuse. Nutritional screening: No deficits noted. rg5 Tuberculosis screening: No symptoms or risk factors identified. Assessment: 21:00 General: Appears uncomfortable, Behavior is calm, cooperative, appropriate for age. rg5 21:00 Pain: Denies pain. Neuro: Level of Consciousness is awake, alert, obeys commands, rg5 Oriented to person, place, time. Cardiovascular: Denies chest pain, Heart tones S1 S2 Patient's skin is warm and dry. Rhythm is sinus rhythm. Respiratory: Airway is patent Trachea midline Respiratory effort is even, unlabored, Breath sounds with wheezes bilaterally. GI: Abdomen is round obese, Abd is soft and non tender. : No signs and/or symptoms were reported regarding the genitourinary system. EENT: No deficits noted. Derm: Skin is intact, Skin is dry, Skin is normal, Skin temperature is warm. Musculoskeletal: Circulation, motion, and sensation intact. Range of motion: intact in all extremities. Vital Signs: 20:50 BP 125 / 72; Pulse 91; Resp 20; Temp 97.6; Pulse Ox 79% ; Weight 160.12 kg; Height 5 bm8 ft. 5 in. ; Pain 0/10; 21:52 BP 120 / 71; Pulse 70; Resp 18; Pulse Ox 100% on 4 lpm NC; Pain 0/10; rg5 22:39 BP 135 / 77; Pulse 73; Resp 18; Temp 98(O); Pulse Ox 93% ; Pain 0/10; rg5 23:16 BP 114 / 59; Pulse 76; Resp 18; Temp 98; Pain 0/10; rg5 06/10 01:00 BP 115 / 65; Pulse 73; Resp 18; Pulse Ox 94% on 4 lpm NC; rg5 06/09 20:50 Body Mass Index 58.74 (160.12 kg, 165.1 cm) bm8 06/09 20:50 Pain Scale: Adult bm8 21:52 Pain Scale: Adult rg5 22:39 Pain Scale: Adult rg5 23:16 Pain Scale: Adult rg5 Galt Coma Score: 06:02 Eye Response: spontaneous(4). Motor Response: obeys commands(6). Verbal Response: sp4 oriented(5). Total: 15. ED Course: 06/09 20:35 Patient arrived in ED. jj6 20:47 Donato Martin MD is Attending Physician. sp4 20:51 Triage completed. bm8 20:51 Arm band placed on right wrist. bm8 21:00 Patient has correct armband on for positive identification. Bed in low position. Call rg5 light in reach. Side rails up X 1. Door closed. Noise minimized. Warm blanket given. Verbal reassurance given. 21:00 No provider procedures requiring assistance completed. Inserted saline lock: 22 gauge rg5 in right antecubital area, using aseptic technique. Blood collected. Flushed with 10 mL NS. Oxygen administration via nasal cannula \T\ 4L/min. 21:02 Robert Gerard, VITA is Primary Nurse. rg5 21:26 EKG done, by mri technologist. af3 21:28 XRAY Chest (1 view) In Process Unspecified. EDMS 23:30 Prince Celestin MD is Hospitalizing Provider. sp4 06/10 01:00 Inserted saline lock: 20 gauge in left antecubital area, using aseptic technique. Blood rg5 collected. Flushed with 10 mL NS. 03:18 Provided Education on: need for admit. rg5 03:18 Patient admitted, IV remains in place. bleeding controlled, No redness/swelling at rg5 site. Pressure dressing applied. Administered Medications: 06/09 21:10 Drug: Albuterol Inhalation 2.5 mg Inhalation every 20 minutes x3 Route: Inhalation; rg5 21:10 Drug: Ipratropium Inhalation Aerosol 0.5 mg Inhalation once; Every 20 min for a total rg5 of 3 treatments x3 Route: Inhalation; 21:18 Drug: MethylPrednisoLONE IVP 125 mg IVP once Route: IVP; Site: right antecubital; rg5 21:50 Follow up: Response: No adverse reaction rg5 21:30 Drug: Albuterol Inhalation 2.5 mg Inhalation every 20 minutes x3 Route: Inhalation; rg5 21:30 Follow up: Response: No adverse reaction rg5 21:30 Drug: Ipratropium Inhalation Aerosol 0.5 mg Inhalation once; Every 20 min for a total rg5 of 3 treatments x3 Route: Inhalation; 22:00 Drug: Ipratropium Inhalation Aerosol 0.5 mg Inhalation once; Every 20 min for a total rg5 of 3 treatments x3 Route: Inhalation; 22:10 Drug: Albuterol Inhalation 2.5 mg Inhalation every 20 minutes x3 Route: Inhalation; rg5 06/10 00:50 Drug: Rocephin - Rocephin (cefTRIAXone) IVPB 1 grams IVPB once over 30 mins; (mix in 50 rg5 mL NS) Route: IVPB; Infused Over: 30 mins; Site: right antecubital; 01:30 Follow up: IV Status: Completed infusion; IV Intake: 50ml rg5 01:36 Drug: Zithromax IVPB 500 mg IVPB once over 1 hrs; mix in 250 mL NS Route: IVPB; Infused rg5 Over: 1 hrs; Site: left antecubital; 02:30 Follow up: IV Status: Completed infusion; IV Intake: 250ml rg5 Medication: 06/09 21:00 VIS not applicable for this client. rg5 Intake: 06/10 01:30 IV: 50ml; Total: 50ml. rg5 02:30 IV: 250ml; Total: 300ml. rg5 Outcome: 06/09 23:31 Decision to Hospitalize by Provider. sp4 06/10 03:16 Admitted to Tele accompanied by nurse, via wheelchair, with oxygen, rg5 Condition: stable Instructed on the need for admit, 03:20 Patient left the ED. rg5 Signatures: Dispatcher [employer] EDMS Lalita Lyon jj6 Donato Martin MD MD sp4 Izaiah Riggins RN RN bm8 Robert Gerard RN RN rg5 Mia Robertson3 Corrections: (The following items were deleted from the chart) 06/09 20:57 20:50 BP 125 / 72; Pulse 91bpm; Resp 20bpm; Pulse Ox 86%; Temp 97.6F; 160.12 kg; Height bm8 5 ft. 5 in.; BMI: 58.7; Pain 0/10, Adult; bm8 22:43 22:39 BP 135 / 77; Pulse 73bpm; Resp 18bpm; Pulse Ox 97% RA; Temp 98F Oral; Pain 0/10, rg5 Adult; rg5
[2024-06-09] MEDS: DULERA 200/5 (MOMETASONE/FORMOTEROL) INHALER IH SCH (23:55)
--- NOTE | 2024-06-09 23:55 | P.HP ---
Certification for Inpatient Patient admitted to: Inpatient With expected LOS: >2 Midnights Practitioner: I am a practitioner with admitting privileges, knowledge of patient current condition, hospital course, and medical plan of care. Services: Services provided to patient in accordance with Admission requirements found in Title 42 Section 412.3 of the Code of Federal Regulations Patient History Date of Service: 06/10/24 Reason for admission: Shortness of breath History of Present Illness: Patient is a 39-year-old female with morbid obesity, anemia of chronic disease and asthma. She presented to the hospital with an acute onset of shortness of breath that started on the day of admission. Patient is reporting shortness of breath and wheezing. She denies any cough, lower extremity edema. She also denies fever or chills. Workup in the ER included a chest x-ray which revealed right basilar opacities. Patient was requiring 4 L of oxygen via nasal cannula. Lung auscultation, she had evidence of wheezing. She is being admitted for community-acquired pneumonia complicated by asthma exacerbation. Allergies erythromycin base Allergy (Verified 12/02/23 03:10) Hives/Rash Penicillins Allergy (Verified 12/02/23 03:10) Hives/Rash Sulfa (Sulfonamide Antibiotics) Allergy (Verified 12/02/23 03:10) Hives/Rash sulfamethoxazole [From Bactrim] Allergy (Verified 12/02/23 03:10) Unknown trimethoprim [From Bactrim] Allergy (Verified 12/02/23 03:10) Unknown Home Medications: ALPRAZolam [Xanax*] 1 tab PO Q6H PRN 12/02/23 Albuterol Inhaler [Ventolin Inhaler*] 2 puff IH Q4HP PRN 12/02/23 - Past Medical/Surgical History Diabetic: No -: hypothyroidism -: anxiety -: depression -: bipolar -: Asthma -: COVID pneumonia -: Sleep apnea -: c section -: tubal ligation -: tonsillectomy -: Adenoidectomy -: Hernia repair,abdominal, needs another repair -: Appendectomy Psychosocial/ Personal History: 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 - Family History Father Notes: drug addict, ETOH abuse Mother -: Heart disease, Hypertension, Lung disease, Diabetes, Stroke, Other (see notes) Notes: copd,chf - Social History Alcohol use: No CD- Drugs: No Caffeine use: Yes Physical Examination - Physical Exam General: Acute distress, Obese (Morbidly obese) HEENT: Atraumatic, Normocephalic Respiratory: Diminished, Expiratory wheezes Cardiovascular: No edema, Normal pulses, Regular rate/rhythm, Normal S1 S2 Neurological: Normal speech - Studies Laboratory Data (last 24 hrs) 06/09/24 06/09/24 21:24 21:24 WBC 8.60 Hgb 7.0 L Hct 22.7 L Plt Count 344 Sodium 136 Potassium 3.7 BUN 13 Creatinine 1.10 H Glucose 96 Total Bilirubin 0.4 AST 27 ALT 25 Alkaline Phosphatase 48 Microbiology Data (last 24 hrs): 06/09/24 21:24 Nasopharnyx Influenza Type A Antigen Screen - Final 06/09/24 21:24 Nasopharnyx Influenza Type B Antigen Screen - Final Assessment and Plan - Problems (Diagnosis) (1) Community acquired bacterial pneumonia Current Visit: Yes Status: Acute (2) Morbid obesity Current Visit: Yes Status: Acute (3) Acute respiratory failure due to severe acute respiratory syndrome coronavirus 2 (SARS-CoV-2) infection Current Visit: No Status: Acute (4) Asthma exacerbation Current Visit: No Status: Acute Qualifiers: Asthma severity: moderate Asthma persistence: unspecified Qualified Code(s): J45.901 - Unspecified asthma with (acute) exacerbation (5) Obesity hypoventilation syndrome Current Visit: No Status: Acute - Plan Assessment Patient is a 39 year old F with morbid obesity, OHS, Asthma. She is being admitted after she presented with shortness of breath. She has RLL opacities on CXR. Her Hb is 7.0. Patient is being admitted for communited acquired PNA complicated by Asthma exacerbation. She will also be transfused for symptomatic anemia Acute hypoxemic respiratory failure Community acquired PNA Acute asthma exacerbation Symptomatic anemia Obesity hypoventilation syndrome Morbid obesity PLAN: Will admit inpatient to ICU for BiPAP and hemodynamic monitoring Patient is desatting on 4 L. O2 sats in mid 80s. Currently with borderline blood pressure. Patient started on meropenem due to several abx allergies COPD standard regimen: solumedrol, DuoNebs and Dulera Respiratory and blood cultures Patient will be transfused with pRBC, with IV lasix between transfusion Monitor I/O GI and DVT ppx PT/OT before discharge - Advance Directives Does patient have a Living Will: No Does patient have a Durable POA for Healthcare: No
[2024-06-10] MEDS ORDERED: SODIUM CHLORIDE 0.9% 10ML INJ IV PRN
[2024-06-10] MEDS: PANTOPRAZOLE 40 MG INJ IVP SCH
[2024-06-10] MEDS: METHYLPREDNISOLONE 40 MG INJ IV SCH (01:00)
[2024-06-10] MEDS ORDERED: AZITHROMYCIN 500 MG INJ IVPB ONE (01:12)
[2024-06-10] MEDS ORDERED: NA CHLORIDE 0.9% 50 ML ONE (01:12)
[2024-06-10] MEDS ORDERED: CEFTRIAXONE 1000 MG/VIAL ONE (01:12)
[2024-06-10] MEDS ORDERED: NA CHLORIDE 0.9% 250 ML ONE (01:12)
[2024-06-10] MEDS: IPRATROPIUM BROM 0.5MG/2.5ML NEB SCH ×2 (03:20→20:13)
[2024-06-10] MEDS: ALBUTEROL 2.5 MG/3 ML NEB SOL NEB SCH ×2 (03:20→20:13)
[2024-06-10] MEDS: Meropenem 1,000 MG in NA CHLORIDE 0.9% 100 ML IV SCH ×2 (05:29→17:26)
[2024-06-10] MEDS: NA CHLORIDE 0.9% 250 ML ONE (05:36)
[2024-06-10 06:41] LABS: Anion Gap 8.8 mEq/L (5.0-15.0); Potassium 3.8 mEq/L (3.5-5.1)
[2024-06-10 06:43] LABS: Magnesium 2.4 mg/dL (1.6-2.4); Phosphorus 2.6 mg/dL (2.5-4.9)
[2024-06-10] MEDS: FLU (Fluarix Triv) TS24-25(6MOS UP)/PF 45 MCG/0.5 ML Syringe IM ONE (07:15)
[2024-06-10] MEDS: ENOXAPARIN 40 MG/0.4 ML SQ SCH (08:49)
[2024-06-10] MEDS: FUROSEMIDE 40 MG/4 ML VIAL IV PRN (08:49)
[2024-06-10 09:35] LABS: Absolute Lymphocytes (CBC) 0.6 K/uL (0.7-4.9); Absolute Monocytes 0.2 K/uL (0.1-1.3); Absolute Neutrophil 9.9 K/uL (1.8-8.0); Basophils % 0.4 % (0-1.3); Hematocrit 23.9 % (36.0-45.0); Hemoglobin 7.6 g/dL (12.0-15.0); Lymphocytes % 5.3 % (15.3-44.8); MCHC 31.6 g/dL (32.0-36.0); MCV 79.1 fL (80-100); MPV 7.9 fL (7.6-11.3); Monocytes % 2.2 % (3.3-12.3); Neutrophils % 92.1 % (41.7-73.7); Nucleated Red Blood Cells % 0.4 % (0-0); Platelets 344 thou/uL (152-406); RBC Red Blood Cell Count 3.02 M/uL (3.86-4.86); Red Cell Distribution Width 16.8 % (12.1-15.2)
[2024-06-10 12:13] LABS: Anisocytosis 1+; Blood Morphology Comment NOTED (NOT SEEN); Microcytosis 1+; Platelet Estimate ADEQ; White Blood Cell Scan OK (OK)
[2024-06-10] MEDS: NA CHLORIDE 0.9% 1,000 ML IV ONE (13:29)
[2024-06-10] MEDS: POTASSIUM CL SA 10 MEQ TAB PO ONE (13:30)
--- NOTE | 2024-06-10 13:36 | P.PN ---
Subjective Date of Service: 06/10/24 Chief Complaint: Shortness of breath Currently on BiPAP, no acute distress Review of Systems General: Unremarkable Eyes: Unremarkable ENT: Unremarkable Respiratory: Unremarkable Cardiovascular: Unremarkable Gastrointestinal: Unremarkable Genitourinary: Unremarkable Integumentary: Unremarkable Neurological: Unremarkable Physical Examination - Vital Signs Temperature: 97.0 F Blood Pressure: 124/77 Pulse: 83 Respirations: 22 Pulse Ox (%): 100 - Physical Exam General: Alert, Oriented x3 HEENT: Atraumatic Neck: Supple Respiratory: Clear to auscultation bilaterally Cardiovascular: Regular rate/rhythm Gastrointestinal: Normal bowel sounds, Non-distended, No masses Musculoskeletal: No clubbing, No swelling, No contractures - Studies Laboratory Data (last 24 hrs) 06/09/24 06/09/24 21:24 21:24 WBC 8.60 Hgb 7.0 L Hct 22.7 L Plt Count 344 Sodium 136 Potassium 3.7 BUN 13 Creatinine 1.10 H Glucose 96 Total Bilirubin 0.4 AST 27 ALT 25 Alkaline Phosphatase 48 Microbiology Data (last 24 hrs): 06/09/24 21:24 Nasopharnyx Influenza Type A Antigen Screen - Final 06/09/24 21:24 Nasopharnyx Influenza Type B Antigen Screen - Final Assessment And Plan - Plan 1. Acute hypoxic respiratory failure secondary to suspected pneumonia -Currently on BiPAP -Chest x-ray showed right basilar opacities, suspected atelectasis, though pneumonia not excluded -Continue meropenem 2. Chronic blood loss anemia secondary to menorrhagia -Hemoglobin currently at 7, will transfuse 1 unit of PRBC -Check iron panel 3. History of asthma -Continue nebs 4. DVT prophylaxis -SCDs Discharge Plan: Home Plan to discharge in: 72 Hours
[2024-06-10] MEDS ORDERED: NA CHLORIDE 0.9% 250 ML IV SCH (15:00)
[2024-06-10 20:41] LABS: Ferritin 6.9 ng/mL (8-252)
[2024-06-10] MEDS: ACETAMINOPHEN 500 MG TAB PO PRN (21:35)
[2024-06-11] MEDS: ONDANSETRON 4 MG/2 ML VIAL IV PRN (01:50)
[2024-06-11 05:48] LABS: Absolute Basophils 0.1 K/uL (0-0.5); Absolute Lymphocytes (CBC) 0.9 K/uL (0.7-4.9); Absolute Monocytes 0.7 K/uL (0.1-1.3); Absolute Neutrophil 15.4 K/uL (1.8-8.0); Basophils % 0.3 % (0-1.3); Hematocrit 24.2 % (36.0-45.0); Hemoglobin 7.8 g/dL (12.0-15.0); Lymphocytes % 5.4 % (15.3-44.8); MCH 25.6 pg (27.0-35.0); MCV 80.1 fL (80-100); Monocytes % 4.2 % (3.3-12.3); Neutrophils % 90.1 % (41.7-73.7); Platelets 340 thou/uL (152-406); RBC Red Blood Cell Count 3.03 M/uL (3.86-4.86); Red Cell Distribution Width 16.6 % (12.1-15.2)
[2024-06-11 06:04] LABS: Anion Gap 9.3 mEq/L (5.0-15.0); Potassium 4.3 mEq/L (3.5-5.1)
[2024-06-11] MEDS: METHYLPREDNISOLONE 40 MG INJ IV SCH (08:01)
[2024-06-11] MEDS: Mupirocin NASAL 2 APPL/1 GM TUBE NAS SCH (08:02)
--- NOTE | 2024-06-11 08:18 | RAD REPORT ---
EXAM: Chest Single View HISTORY: hypoxia COMPARISON: 06/09/2024 FINDINGS: LUNGS/PLEURA: Low lung volumes with diffuse prominence of the pulmonary interstitium. Opacities in th e right lung base are grossly similar. MEDIASTINUM: The mediastinal silhouette is within normal limits. CARDIAC: Enlarged which may be exaggerated by portable technique as well. UPPER ABDOMEN: No significant abnormality. BONES: No acute abnormality. LINES/TUBES/OTHER: N/A IMPRESSION: Increased prominence of the pulmonary interstitium could reflect either developing edema or accentuat ion by low lung volumes/portable technique. Similar mild opacities at the right lung base.
[2024-06-11] MEDS: SOD FERRIC GLUC COMPLX/SUCROSE 125 MG in NA CHLORIDE 0.9% 100 ML IV SCH (08:51)
[2024-06-11 09:59] LABS: Anisocytosis 1+; Basophilic Stippling 1+; Blood Morphology Comment NOTED (NOT SEEN); Microcytosis 1+; Platelet Estimate ADEQ; White Blood Cell Scan OK (OK)
--- NOTE | 2024-06-11 17:43 | P.PN ---
Subjective Date of Service: 06/11/24 Chief Complaint: Shortness of breath Currently on nasal cannula, 4 L, sleeping but arousable Review of Systems 10-point ROS is otherwise unremarkable Physical Examination - Vital Signs Temperature: 97 F Blood Pressure: 124/66 Pulse: 83 Respirations: 17 Pulse Ox (%): 92 Assessment And Plan - Plan 1. Acute hypoxic respiratory failure secondary to suspected pneumonia -Was on BiPAP, transition to nasal cannula 4 L -Chest x-ray showed right basilar opacities, suspected atelectasis, though pneumonia not excluded -Continue meropenem and doxycycline 2. Chronic blood loss anemia secondary to menorrhagia -Iron panel consistent with iron deficiency anemia -Hemoglobin currently at 7.8 posttransfusion of 2 units of PRBC -On IV iron daily x 3 days 3. Leukocytosis -Likely secondary to IV steroids 4. History of asthma -Continue nebs, steroids 5. DVT prophylaxis -SCDs
[2024-06-12 05:56] LABS: Absolute Lymphocytes (CBC) 1.5 K/uL (0.7-4.9); Absolute Monocytes 0.7 K/uL (0.1-1.3); Absolute Neutrophil 14.5 K/uL (1.8-8.0); Basophils % 0.2 % (0-1.3); Hematocrit 25.5 % (36.0-45.0); Hemoglobin 7.9 g/dL (12.0-15.0); Lymphocytes % 8.9 % (15.3-44.8); MCH 25.5 pg (27.0-35.0); MCHC 30.9 g/dL (32.0-36.0); MCV 82.6 fL (80-100); MPV 7.8 fL (7.6-11.3); Monocytes % 4.4 % (3.3-12.3); Neutrophils % 86.5 % (41.7-73.7); Nucleated Red Blood Cells % 0.1 % (0-0); Platelets 362 thou/uL (152-406); RBC Red Blood Cell Count 3.09 M/uL (3.86-4.86); Red Cell Distribution Width 16.6 % (12.1-15.2)
[2024-06-12 05:59] VITALS: BMI 58.9
[2024-06-12 06:02] LABS: Anion Gap 6.5 mEq/L (5.0-15.0); Magnesium 2.7 mg/dL (1.6-2.4); Potassium 4.5 mEq/L (3.5-5.1)
[2024-06-12 06:36] LABS: Phosphorus 2.5 mg/dL (2.5-4.9)
[2024-06-12] MEDS: DOXYCYCLINE 100 MG CAP PO SCH (08:29)
[2024-06-12] MEDS: predniSONE 20 MG TAB PO SCH (08:29)
--- NOTE | 2024-06-12 09:15 | P.PN ---
Subjective Date of Service: 06/12/24 Chief Complaint: Shortness of breath Currently on nasal cannula, 4 L, sleeping but arousable Physical Examination - Vital Signs Temperature: 97.2 F Blood Pressure: 93/64 Pulse: 69 Respirations: 15 Pulse Ox (%): 96 Assessment And Plan - Plan 1. Acute hypoxic respiratory failure secondary to suspected pneumonia and JIN -Was on BiPAP, transition to nasal cannula 4 L -Chest x-ray showed right basilar opacities, suspected atelectasis, though pneumonia not excluded -Continue doxycycline, nebs and steroids -Repeat chest x-ray showed increased interstitial markings however patient does not appear to be volume overloaded, and BNP within normal limits, so ordered CT of chest w/o contrast for further evaluation 2. Chronic blood loss anemia secondary to menorrhagia -Iron panel consistent with iron deficiency anemia -Hemoglobin currently at 7.9 post transfusion of 2 units of PRBC -On IV iron daily x 3 days 3. Leukocytosis -Likely secondary to IV steroids 4. History of asthma -Continue nebs, steroids 5. Morbid obesity 6. DVT prophylaxis -SCDs 7. Disposition: Weaning down O2. Await results of CT of chest without contrast study
--- NOTE | 2024-06-12 10:46 | RAD REPORT ---
EXAMINATION: CT Thorax Wo Con CLINICAL INDICATION: Female, 39 years old. [facility] MAIN hypoxia Y TECHNIQUE: Axial CT scan of the chest without intravenous contrast. Multiplanar reformats were genera john and reviewed. One or more of the following dose reduction techniques were used: Automated exposure control, adjustment of the mA and/or kV according patient size, and/or iterative reconstruct ion. Unless otherwise specified, incidental findings do not require dedicated imaging follow-up. COMPARISON: 12/04/2023 FINDINGS: LOWER NECK: Visualized thyroid gland and soft tissues are normal. LUNGS: Elevation of the right hemidiaphragm again seen. Progressive airspace opacities with volume lo ss in the left lingular segment. Stable segmental airspace opacification in the right middle lobe and bibasal lung elsewhere, also with volume loss. Findings are most suggestive of atelectasis. No ev idence of airspace or interstitial process. No worrisome nodules. PLEURA: No pleural effusion. No pneumothorax. . MEDIASTINUM AND LYMPH NODES: Heart is again mildly prominent in size. Trace pericardial effusion, sta ble. No mediastinal mass or fluid collection. Normal size mediastinal, hilar, and axillary lymph nodes. OSSEOUS STRUCTURES AND CHEST WALL: Intact. UPPER ABDOMEN: No significant abnormalities. IMPRESSION: Progressive airspace opacification in the left lingula, with stable right middle lobe and bibasilar l ower lobe opacities with volume loss. Findings are most suggestive of atelectasis. Stable mild cardiomegaly with trace pericardial effusion.
[2024-06-12] MEDS: IPRATROPIUM BROM 0.5MG/2.5ML ONE (20:51)
[2024-06-12] MEDS: ALBUTEROL 2.5 MG/3 ML NEB SOL ONE (20:51)
[2024-06-13] MEDS: IPRATROPIUM BROM 0.5MG/2.5ML ONE ×2 (00:51→06:56)
[2024-06-13] MEDS: ALBUTEROL 2.5 MG/3 ML NEB SOL ONE ×2 (00:52→06:56)
[2024-06-13 04:57] LABS: Absolute Basophils 0.1 K/uL (0-0.5); Absolute Lymphocytes (CBC) 3.1 K/uL (0.7-4.9); Absolute Monocytes 0.9 K/uL (0.1-1.3); Absolute Neutrophil 11.6 K/uL (1.8-8.0); Basophils % 0.3 % (0-1.3); Eosinophils % 0.3 % (0-4.4); Hematocrit 25.4 % (36.0-45.0); Hemoglobin 7.9 g/dL (12.0-15.0); Lymphocytes % 19.6 % (15.3-44.8); MCV 84.1 fL (80-100); MPV 7.4 fL (7.6-11.3); Monocytes % 5.9 % (3.3-12.3); Nucleated Red Blood Cells % 0.2 % (0-0); Platelets 363 thou/uL (152-406); RBC Red Blood Cell Count 3.02 M/uL (3.86-4.86); Red Cell Distribution Width 17.1 % (12.1-15.2)
[2024-06-13 05:03] LABS: Neutrophils % 73.9 % (41.7-73.7)
[2024-06-13 05:21] LABS: Anion Gap 4.5 mEq/L (5.0-15.0); Magnesium 2.4 mg/dL (1.6-2.4); Potassium 4.5 mEq/L (3.5-5.1)
[2024-06-13] MEDS: FUROSEMIDE 40 MG/4 ML VIAL IV ONE ×2 (07:23→10:11)
[2024-06-13] MEDS: CEFTRIAXONE 2,000 MG in NA CHLORIDE 0.9% 100 ML IV SCH (10:10)
[2024-06-13] MEDS: Levofloxacin 750mg IV 750 MG/150 ML BAG IV SCH (10:11)
[2024-06-13] MEDS: HYDROCODONE/APAP 5/325 MG TAB PO ONE (15:03)
[2024-06-13] MEDS: FUROSEMIDE 40 MG TABLET PO SCH (17:00)
[2024-06-13] MEDS: ALPRAZOLAM 1 MG TABLET PO ONE (23:39)
[2024-06-13] MEDS ORDERED: ALPRAZOLAM 0.5 MG TABLET PO PRN (23:43)
--- NOTE | 2024-06-14 00:10 | P.PN ---
Date of Service: 06/13/24 Subjective Chief Complaint: Shortness of breath Room air sats 83%, currently being treated for pneumonia, Physical Examination - Vital Signs Reviewed - Physical Exam General: Alert, morbid obesity, hypoxic on room air HEENT: Atraumatic, Normocephalic Neck: Supple, JVD not distended Respiratory: Normal air movement, Crackles/rales Cardiovascular: Normal pulses, Regular rate/rhythm, Edema (Lower edema) Gastrointestinal: Normal bowel sounds, Soft and benign Musculoskeletal: Other (Generalized weakness) Integumentary: No breakdown, No significant lesion Neurological: Normal speech, Normal strength at 5/5 x4 extr, Cranial nerves 3-12 intact Assessment And Plan - Plan Acute hypoxic respiratory failure secondary to suspected pneumonia and JIN -Was on BiPAP, transition to nasal cannula 4 L -Chest x-ray showed right basilar opacities, suspected atelectasis, though pneumonia not excluded -Continue doxycycline, in addition to Levaquin, ceftriaxone due to continued h ypoxia - nebs and steroids -Repeat chest x-ray showed increased interstitial markings however patient does not appear to be volume overloaded, and BNP within normal limits, so ordered CT of chest w/o contrast for further evaluation Eval for home O2 Chronic blood loss anemia secondary to menorrhagia -Iron panel consistent with iron deficiency anemia -Hemoglobin currently at 7.9 post transfusion of 2 units of PRBC -On IV iron daily x 3 days Leukocytosis -Likely secondary to IV steroids History of asthma -Continue nebs, steroids Morbid obesity DVT prophylaxis -SCDs Disposition: Weaning down O2. Await results of CT of chest without contrast study
[2024-06-14 05:10] LABS: Absolute Basophils 0.1 K/uL (0-0.5); Absolute Lymphocytes (CBC) 3.4 K/uL (0.7-4.9); Absolute Monocytes 0.8 K/uL (0.1-1.3); Absolute Neutrophil 11.3 K/uL (1.8-8.0); Basophils % 0.6 % (0-1.3); Eosinophils % 0.3 % (0-4.4); Hematocrit 25.2 % (36.0-45.0); Lymphocytes % 21.5 % (15.3-44.8); MCH 25.7 pg (27.0-35.0); MCHC 31.6 g/dL (32.0-36.0); MCV 81.4 fL (80-100); MPV 7.3 fL (7.6-11.3); Monocytes % 5.2 % (3.3-12.3); Nucleated Red Blood Cells % 0.1 % (0-0); Platelets 315 thou/uL (152-406); Red Cell Distribution Width 16.8 % (12.1-15.2)
[2024-06-14 05:14] LABS: Neutrophils % 72.4 % (41.7-73.7)
[2024-06-14 05:24] LABS: Anion Gap 6.2 mEq/L (5.0-15.0); Potassium 4.2 mEq/L (3.5-5.1)
[2024-06-14] MEDS: FUROSEMIDE 40 MG/4 ML VIAL IV ONE (14:37)
--- NOTE | 2024-06-14 15:36 | P.DS ---
Admission Date: 06/09/24 Discharge Date: 06/15/24 Disposition: ROUTINE DISCHARGE Discharge Condition: GOOD Reason for Admission: Shortness of breath Brief History of Present Illness: Patient is a 39-year-old female with morbid obesity, anemia of chronic disease and asthma. She presented to the hospital with an acute onset of shortness of breath that started on the day of admission. Patient is reporting shortness of breath and wheezing. She denies any cough, lower extremity edema. She also denies fever or chills. Workup in the ER included a chest x-ray which revealed right basilar opacities. Patient was requiring 4 L of oxygen via nasal cannula. Lung auscultation, she had evidence of wheezing. She is being admitted for community-acquired pneumonia complicated by asthma exacerbation - Physical Exam General: Alert, morbid obesity, HEENT: Atraumatic, Normocephalic Neck: Supple, JVD not distended Respiratory: Normal air movement, diminished Cardiovascular: Normal pulses, Regular rate/rhythm, Edema (Lower edema) Gastrointestinal: Normal bowel sounds, Soft and benign Musculoskeletal: Other (Generalized weakness) Integumentary: No breakdown, No significant lesion Neurological: Normal speech, Normal strength at 5/5 x4 extr, Cranial nerves 3-12 intact Hospital Course: Patient is a 39-year-old female with morbid obesity, anemia of chronic disease and asthma. She presented to the hospital with an acute onset of shortness of breath that started on the day of admission. Patient is reporting shortness of breath and wheezing. She denies any cough, lower extremity edema. She also denies fever or chills. Workup in the ER included a chest x-ray which revealed right basilar opacities. Patient was requiring 4 L of oxygen via nasal cannula. Lung auscultation, she had evidence of wheezing. She is being admitted for community-acquired pneumonia complicated by asthma exacerbation. Symptoms improved with antibiotics, steroids, oxygen., Stable to discharge home, follow- up with PCP and pulmonary after discharge Discharge home with inhalers, albuterol inhaler, Dulera, both inhalers given prior to discharge P.o. Levaquin antibiotics, steroids, daily for 5 days Information was given for oxygen outpatient by SS Assessment Acute on chronic hypoxic respiratory failure secondary to pneumonia, asthma exacerbation history of chronic hypoixa secondary prior Covid history Obesity, hypoventilation syndrome Pulmonary edema, treated with diuretics Morbid obesity Continue home medicines as previously prescribed GOAL: Clear understanding of disease process INSTRUCTIONS: Physician Discharge Instructions: -Follow-up with PCP in 1 to 2 weeks -Please call Dr. Vieira at [phone] if any questions regarding hospital stay -Please call nursing station at [phone] if any nursing or medication questions -Return to the emergency room if symptoms worsen Diet: ADA, low sodium Activity: Fall precautions Vital Signs/Physical Exam: Temp Pulse Resp BP Pulse Ox 98.0 F 67 12 120/55 L 91 06/14/24 12:00 06/14/24 12:00 06/14/24 12:00 06/14/24 12:00 06/14/24 12:00 Laboratory Data at Discharge: WBC 15.60 thou/uL (4.3-10.9) H 06/14/24 04:53 Hgb 8.0 g/dL (12.0-15.0) L 06/14/24 04:53 Hct 25.2 % (36.0-45.0) L 06/14/24 04:53 Plt Count 315 thou/uL (152-406) 06/14/24 04:53 Sodium 139 mEq/L (136-145) 06/14/24 04:53 Potassium 4.2 mEq/L (3.5-5.1) 06/14/24 04:53 BUN 19 mg/dL (7-18) H 06/14/24 04:53 Creatinine 0.88 mg/dL (0.55-1.02) 06/14/24 04:53 Glucose 87 mg/dL (74-106) 06/14/24 04:53 Phosphorus 2.5 mg/dL (2.5-4.9) 06/12/24 05:15 Magnesium 2.4 mg/dL (1.6-2.4) 06/13/24 04:33 Total Bilirubin 0.4 mg/dL (0.2-1.0) 06/09/24 21:24 AST 27 U/L (15-37) 06/09/24 21:24 ALT 25 U/L (13-56) 06/09/24 21:24 Alkaline Phosphatase 48 U/L (45-117) 06/09/24 21:24 Triglycerides 79 mg/dL (<150) 06/10/24 06:01 Cholesterol 334 mg/dL (<200) H 06/10/24 06:01 HDL Cholesterol 39 mg/dL (40-60) L 06/10/24 06:01 Cholesterol/HDL Ratio 8.56 06/10/24 06:01 Home Medications: ALPRAZolam [Xanax*] 1 tab PO Q6H PRN 12/02/23 Albuterol Inhaler [Ventolin Inhaler*] 2 puff IH Q4HP PRN 30 Days #1 inhaler 06/14/24 Furosemide [Lasix] 20 mg PO DAILY #30 tab 06/15/24 Potassium Chloride 10 meq PO DAILY #30 tab 06/15/24 levoFLOXacin [Levofloxacin] 500 mg PO DAILY #7 tab 06/15/24 predniSONE [Prednisone*] 20 mg PO BID 5 Days #10 tab 06/15/24 New Medications: Furosemide [Lasix] 20 mg PO DAILY #30 tab levoFLOXacin [Levofloxacin] 500 mg PO DAILY #7 tab Potassium Chloride 10 meq PO DAILY #30 tab predniSONE [Prednisone*] 20 mg PO BID 5 Days #10 tab Albuterol Inhaler [Ventolin Inhaler*] 2 puff IH Q4HP PRN 30 Days #1 inhaler PRN Reason: Shortness Of Breath Physician Discharge Instructions: Patient is a 39-year-old female with morbid obesity, anemia of chronic disease and asthma. She presented to the hospital with an acute onset of shortness of breath that started on the day of admission. Patient is reporting shortness of breath and wheezing. She denies any cough, lower extremity edema. She also denies fever or chills. Workup in the ER included a chest x-ray which revealed right basilar opacities. Patient was requiring 4 L of oxygen via nasal cannula. Lung auscultation, she had evidence of wheezing. She is being admitted for community-acquired pneumonia complicated by asthma exacerbation. Symptoms improved with antibiotics, steroids, oxygen., Stable to discharge home, follow- up with PCP and pulmonary after discharge Discharge home with inhalers, albuterol inhaler P.o. levaquin, antibiotics, steroids, for 5 days Information was given for oxygen outpatient by SS Assessment Acute on chronic hypoxic respiratory failure secondary to pneumonia, asthma exacerbation history of chronic hypoixa secondary prior Covid history Obesity, hypoventilation syndrome Pulmonary edema, treated with diuretics Morbid obesity Continue home medicines as previously prescribed GOAL: Clear understanding of disease process INSTRUCTIONS: Physician Discharge Instructions: -Follow-up with PCP in 1 to 2 weeks -Please call Dr. Vieira at [phone] if any questions regarding hospital stay -Please call nursing station at [phone] if any nursing or medication questions -Return to the emergency room if symptoms worsen Diet: ADA, low sodium Activity: Fall precautions Diet: AHA Activity: Fall precautions Followup: Lloyd Lugo MD [ACTIVE - CAN ADMIT] - 1-2 Weeks NONE,NONE [Primary Care Provider] - Time spent managing pt's care (in minutes): 45
[2024-06-14] MEDS ORDERED: ALBUTEROL INHALER 200 PUFF/6.7 GM IH SCH (17:53)
[2024-06-14] MEDS: ALBUTEROL INHALER 200 PUFF/6.7 GM IH SCH (21:34)
[2024-06-15 04:42] LABS: Absolute Basophils 0.1 K/uL (0-0.5); Absolute Lymphocytes (CBC) 3.7 K/uL (0.7-4.9); Absolute Monocytes 0.7 K/uL (0.1-1.3); Absolute Neutrophil 12.5 K/uL (1.8-8.0); Basophils % 0.5 % (0-1.3); Eosinophils % 0.2 % (0-4.4); Hematocrit 26.9 % (36.0-45.0); Hemoglobin 8.7 g/dL (12.0-15.0); Lymphocytes % 21.6 % (15.3-44.8); MCH 26.2 pg (27.0-35.0); MCHC 32.4 g/dL (32.0-36.0); MCV 80.8 fL (80-100); MPV 7.7 fL (7.6-11.3); Monocytes % 4.4 % (3.3-12.3); Neutrophils % 73.3 % (41.7-73.7); Nucleated Red Blood Cells % 0.1 % (0-0); Platelets 371 thou/uL (152-406); RBC Red Blood Cell Count 3.32 M/uL (3.86-4.86); Red Cell Distribution Width 17.2 % (12.1-15.2)
[2024-06-15 04:52] LABS: Anion Gap 5.5 mEq/L (5.0-15.0); Potassium 3.5 mEq/L (3.5-5.1)
[2024-06-15 05:10] LABS: Anisocytosis 1+; Band Neutrophils 7 % (0-1); Blood Morphology Comment NOTED (NOT SEEN); Differential Total Cells Count 100; Eosinophils 1 % (0-3); Lymphocytes 20 % (15-42); Metamyelocytes 2 % (0-0); Monocytes 3 % (0-10); Platelet Estimate ADEQ; Reactive Lymphocytes 14 %; Segmented Neutrophils 53 % (40-80)
--- NOTE | 2024-06-15 06:12 | P.PN ---
Date of Service: 06/14/24 Subjective Chief Complaint: Shortness of breath weaning 02, no reported shortness of breath, 85-87% Room air, encouraged deep breathing Physical Examination - Vital Signs Reviewed - Physical Exam General: Alert, morbid obesity, hypoxic on room air HEENT: Atraumatic, Normocephalic Neck: Supple, JVD not distended Respiratory: Normal air movement, equal unlabored Cardiovascular: Normal pulses, Regular rate/rhythm, Edema (Lower edema) Gastrointestinal: Normal bowel sounds, Soft and benign Musculoskeletal: Other (Generalized weakness) Integumentary: No breakdown, No significant lesion Neurological: Normal speech, Normal strength at 5/5 x4 extr, Cranial nerves 3-12 intact Assessment And Plan - Plan Acute hypoxic respiratory failure secondary to suspected pneumonia and JIN -Was on BiPAP, transition to nasal cannula 4 L -Chest x-ray showed right basilar opacities, suspected atelectasis, though pneumonia not excluded -Continue doxycycline, in addition to Levaquin, ceftriaxone due to continued hypoxia - nebs and steroids -Repeat chest x-ray showed increased interstitial markings however patient does not appear to be volume overloaded, and BNP within normal limits, so ordered CT of chest w/o contrast for further evaluation Eval for home O2, she cannot affored Home 02, info given to obtain 02 at home Chronic blood loss anemia secondary to menorrhagia -Iron panel consistent with iron deficiency anemia -Hemoglobin currently at 7.9 post transfusion of 2 units of PRBC -On IV iron daily x 3 days Leukocytosis -Likely secondary to IV steroids History of asthma -Continue nebs, steroids Morbid obesity DVT prophylaxis -SCDs Disposition: Weaning down O2. Await results of CT of chest without contrast study
[2024-06-15] MEDS: CEFTRIAXONE 2,000 MG in NA CHLORIDE 0.9% 100 ML IV SCH (06:35)
--- NOTE | 2024-06-15 08:14 | RAD REPORT ---
Procedure: Chest Pa And Lat (2 Views) HISTORY: Cough COMPARISON: June 12, 2024 FINDINGS: Mild improvement in the lingular pneumonia. No significant change in the right basilar atelectasis. Upper lobes appear clear. No significant pleural effusion noted. The heart is borderline enlarged IMPRESSION: Mild improvement in the lingular pneumonia
[2024-06-15] MEDS: POTASSIUM 25 MEQ EFFERV TAB PO ONE (09:01)
[2024-06-15 09:34] VITALS: BP 118/78; TEMP 97.6
[2024-06-15] MEDS ORDERED: IBUPROFEN 400 MG TAB PO PRN (09:34)
[2024-06-15 18:39] VITALS: O2SAT 88
--- NOTE | 2024-06-16 13:16 | EKG ---
Test Date: 2024-06-09 Test Time: 21:23:33 Portable Machine Cutter: AF MEASUREMENT RESULTS: Intervals: Rate: 91 VA: 148 QRSD: 94 QT: 322 QTc: 396 [place]: P: 87 VA: 148 QRS: 6 T: 165 INTERPRETIVE STATEMENTS: Normal sinus rhythm Low voltage QRS Borderline ECG Compared to ECG 06/09/2024 21:22:16 Accelerated junctional rhythm no longer present Electronically Signed On 06-16-24 13:05:45 RACKING MACHINE OPERATOR by Reza Gómez
--- NOTE | 2024-06-16 13:16 | EKG ---
Test Date: 2024-06-09 Test Time: 21:22:16 Paying Teller: AF MEASUREMENT RESULTS: Intervals: Rate: 84 [place]: QRSD: 94 QT: 338 QTc: 399 [place]: P: [place]: QRS: 9 T: 203 INTERPRETIVE STATEMENTS: Normal sinus rhythm Low voltage QRS Abnormal ECG Compared to ECG 04/03/2024 02:36:58 No significant changes Electronically Signed On 06-16-24 13:06:18 PLASTIC TOP ASSEMBLER by Reza Gómez
== END 2024-06-15 16:36 | disposition home or self-care (01) | DRG 193 ==
LOC: ER 20:33 → ERHOLD 23:47 → 2ND 06-10 02:07 → 3RD-ICU 06-10 04:13 → 2ND 06-12 14:45
PROVIDERS: ADMIT Internal Medicine; ATTEND Hospitalist
PROC: 30233N1 Transfusion of Nonautologous Red Blood Cells into Peripheral Vein, Percutaneous Approach (ICD-10-PCS; principal; 2024-06-09)
PROC: 5A09557 Assistance with Respiratory Ventilation, Greater than 96 Consecutive Hours, Continuous Positive Airway Pressure (ICD-10-PCS; 2024-06-10)
PROC: 02HV33Z Insertion of Infusion Device into Superior Vena Cava, Percutaneous Approach (ICD-10-PCS; 2024-06-10)
DX: J15.9 Unspecified bacterial pneumonia (principal); J96.21 Acute and chronic respiratory failure with hypoxia; J45.31 Mild persistent asthma with (acute) exacerbation; Z68.43 Body mass index [BMI] 50.0-59.9, adult; E66.2 Morbid (severe) obesity with alveolar hypoventilation; J44.0 Chronic obstructive pulmonary disease with (acute) lower respiratory infection; J81.1 Chronic pulmonary edema; F41.9 Anxiety disorder, unspecified; E03.9 Hypothyroidism, unspecified; F31.9 Bipolar disorder, unspecified; D50.0 Iron deficiency anemia secondary to blood loss (chronic); E11.9 Type 2 diabetes mellitus without complications; I10 Essential (primary) hypertension; N92.0 Excessive and frequent menstruation with regular cycle; I25.2 Old myocardial infarction; Z88.0 Allergy status to penicillin; Z88.1 Allergy status to other antibiotic agents; Z88.2 Allergy status to sulfonamides; Z79.01 Long term (current) use of anticoagulants; Z79.899 Other long term (current) drug therapy; Z90.49 Acquired absence of other specified parts of digestive tract; Z98.51 Tubal ligation status; Z86.16 Personal history of COVID-19; Z79.52 Long term (current) use of systemic steroids
CPT/HCPCS: 36415; 71045; 71046; 71250; 80048; 80061; 80076; 81001; 81025; 82728; 82947; 83540; 83605; 83735; 83880; 84100; 84466; 84484; 85025; 86850; 86900; 86901; 86920; 87040; 87804; 93005; 94640; 94660; 94760; 97161; 99285; J0696; J1650; J1940; J2185; J2405; J2470; J2916; J2919; J3535; J7030; J7050; J7512; J7613; J7644; P9016

== ENCOUNTER 2024-06-29 16:53 | Inpatient (IN) | payer SELFPAY ==
[2024-06-29] MEDS ORDERED: ALBUTEROL 2.5 MG/3 ML NEB SOL ONE (17:40)
[2024-06-29] MEDS ORDERED: IPRATROPIUM BROM 0.5MG/2.5ML ONE (17:40)
[2024-06-29] MEDS ORDERED: METHYLPREDNISOLONE 125 MG INJ ONE (17:40)
--- NOTE | 2024-06-29 18:00 | RAD REPORT ---
EXAMINATION: ONE VIEW CHEST XR CLINICAL INDICATION: Female, 39 years old.,COUGH TECHNIQUE: Frontal chest projection is submitted. Examination is limited by patient positioning and t echnique. COMPARISON: 06/15/2024 FINDINGS: Left lung is now clear. Partially improved aeration in the right perihilar region. No pneumothorax o r sizable effusion. The heart is normal in size. Mediastinal contours are unremarkable. IMPRESSION: Interval improvement as above.
[2024-06-29 18:15] LABS: Absolute Basophils 0.1 K/uL (0-0.5); Absolute Eosinophils 0.2 K/uL (0-0.5); Absolute Lymphocytes (CBC) 1.8 K/uL (0.7-4.9); Absolute Monocytes 0.5 K/uL (0.1-1.3); Absolute Neutrophil 3.5 K/uL (1.8-8.0); Basophils % 1.3 % (0-1.3); Eosinophils % 3.9 % (0-4.4); Hematocrit 27.2 % (36.0-45.0); Hemoglobin 8.8 g/dL (12.0-15.0); Lymphocytes % 29.9 % (15.3-44.8); MCH 27.3 pg (27.0-35.0); MCHC 32.3 g/dL (32.0-36.0); MCV 84.7 fL (80-100); MPV 7.1 fL (7.6-11.3); Monocytes % 7.4 % (3.3-12.3); Neutrophils % 57.5 % (41.7-73.7); Nucleated Red Blood Cells % 0.1 % (0-0); Platelets 354 thou/uL (152-406); RBC Red Blood Cell Count 3.21 M/uL (3.86-4.86); Red Cell Distribution Width 21.6 % (12.1-15.2)
[2024-06-29 18:27] LABS: Anion Gap 4.6 mEq/L (5.0-15.0); Potassium 3.6 mEq/L (3.5-5.1)
[2024-06-29 18:30] LABS: Arterial Blood Carboxyhemoglob 1.6 % (0-1.5); Blood Gas Oxyhemoglobin 87.7 % (94-97); Blood Gas THB 8.9 g/dl (12-18)
--- NOTE | 2024-06-29 18:33 | ER ---
Nurse's Notes [facility] Name: Rachael Knox Age: 39 yrs Sex: Female : 1985 Arrival Date: 06/29/2024 Time: 16:53 Bed 27 Private MD: Diagnosis: Mild intermittent asthma with (acute) exacerbation Presentation: 06/29 17:00 Chief complaint: Patient states: Shortness of breath onset last night. Pt reports that cm10 she was admitted last week for pneumonia. Coronavirus screen: Client denies travel out of the [place] in the last 14 days. Ebola Screen: Patient denies travel to an Ebola-affected area in the 21 days before illness onset. Initial Sepsis Screen: Does the patient meet any 2 criteria? RR > 20 per min. Does the patient have a suspected source of infection? No. Patient's initial sepsis screen is negative. Risk Assessment: Do you want to hurt yourself or someone else? Patient reports no desire to harm self or others. Onset of symptoms was June 29, 2024. 17:00 Method Of Arrival: Ambulatory cm10 17:00 Acuity: DARSHAN 3 cm10 Triage Assessment: 17:02 General: Appears in no apparent distress. uncomfortable, Behavior is calm, cooperative. cm10 Respiratory: Reports shortness of breath Airway is patent Respiratory effort is even, unlabored, Respiratory pattern is regular, symmetrical. 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 - Infectious Disease History:: Denies. - Social history:: Smoking status: Patient denies any tobacco usage or history of. Screenin:05 [facility] ED Fall Risk Assessment (Adult) History of falling in the last 3 months, kc6 including since admission No falls in past 3 months (0 pts) Confusion or Disorientation No (0 pts) Intoxicated or Sedated No (0 pts) Impaired Gait No (0 pts) Mobility Assist Device Used No (0 pt) Altered Elimination No (0 pt) Score/Fall Risk Level 0 - 2 = Low Risk Oriented to surroundings, Maintained a safe environment, Educated pt \T\ family on fall prevention, incl call for assistance when getting out of bed. Abuse screen: Denies threats or abuse. Denies injuries from another. Nutritional screening: No deficits noted. Tuberculosis screening: No symptoms or risk factors identified. Assessment: 18:05 General: Appears in no apparent distress. comfortable, obese, well groomed, well kc6 developed, Behavior is calm, cooperative, appropriate for age. Pain: Denies pain. Neuro: Level of Consciousness is awake, alert, obeys commands, Oriented to person, place, time, situation, Appropriate for age. Cardiovascular: Denies chest pain, Capillary refill < 3 seconds Rhythm is regular. Respiratory: Reports shortness of breath at rest on exertion Airway is patent Trachea midline Respiratory effort is even, unlabored, Respiratory pattern is regular, symmetrical, Breath sounds with wheezes bilaterally. Onset: The symptoms/episode began/occurred today, the patient has moderate shortness of breath. GI: No signs and/or symptoms were reported involving the gastrointestinal system. : No signs and/or symptoms were reported regarding the genitourinary system. EENT: No signs and/or symptoms were reported regarding the EENT system. Derm: No signs and/or symptoms reported regarding the dermatologic system. Skin is intact, is healthy with good turgor, Skin is dry, Skin is pale, Skin temperature is warm. Musculoskeletal: No signs and/or symptoms reported regarding the musculoskeletal system. Circulation, motion, and sensation intact. Range of motion: intact in all extremities. 19:07 Reassessment: Patient appears in no apparent distress at this time. No changes from kc6 previously documented assessment. Patient and/or family updated on plan of care and expected duration. Pain level reassessed. Patient is alert, oriented x 3, equal unlabored respirations, skin warm/dry/pink. 19:57 Reassessment: Patient appears in no apparent distress at this time. No changes from bm8 previously documented assessment. Patient and/or family updated on plan of care and expected duration. Pain level reassessed. Patient is alert, oriented x 3, equal unlabored respirations, skin warm/dry/pink. Vital Signs: 17:00 BP 113 / 53; Pulse 79; Resp 21; Temp 97.8(O); Pulse Ox 97% on R/A; Weight 165.11 kg; cm10 Height 5 ft. 5 in. ; Pain 0/10; 18:05 BP 103 / 60; Pulse 76; Resp 18 S; Pulse Ox 77% on R/A; kc6 18:05 Pulse Ox 98% on 5 lpm NC; kc6 19:07 BP 112 / 83; Pulse 67; Resp 18 S; Pulse Ox 97% on 5 lpm NC; kc6 17:00 Body Mass Index 60.57 (165.11 kg, 165.1 cm) cm10 17:00 Pain Scale: Adult cm10 ED Course: 16:54 Patient arrived in ED. jj6 16:59 Chavez Marie MD is Attending Physician. ec2 17:02 Triage completed. cm10 17:02 Arm band placed on left wrist. Patient placed in an exam room, on a stretcher. cm10 17:20 XRAY Chest (1 view) In Process Unspecified. EDMS 17:53 Cammie Maier, VITA is Primary Nurse. kc6 17:53 Patient has correct armband on for positive identification. Bed in low position. Call kc6 light in reach. Side rails up X2. crepe maker on. Pulse ox on. NIBP on. Door closed. Noise minimized. Lights dimmed. Warm blanket given. Pillow given. 17:53 Inserted saline lock: 18 gauge in right antecubital area, using aseptic technique. 6 Blood collected. Flushed with 10 mL NS. Patient maintains SpO2 saturation greater than 95% on room air. 18:32 Tiny Vieira MD is Hospitalizing Provider. ec2 19:00 First set of blood cultures drawn by nc. vk 19:07 Report given to VITA Bliss \T\ VITA Melchor. kc6 19:57 Provided Education on: need for admission. bm8 19:57 No provider procedures requiring assistance completed. Patient admitted, IV remains in bm8 place. Administered Medications: 17:53 Drug: DuoNeb Nebulize (3:1) (2.5 mg - 0.5 mg) 3 ml Nebulizer once Route: Nebulizer; kc6 19:08 Follow up: Response: No adverse reaction kc6 17:53 Drug: MethylPrednisoLONE IVP 125 mg IVP once Route: IVP; Site: right antecubital; kc6 19:08 Follow up: Response: No adverse reaction kc6 19:59 Drug: Rocephin IV 1 grams IV at bolus once; Given slow IV push per pharmacy bm8 instructions Route: IV; Rate: bolus; Site: right antecubital; 19:59 Follow up: Response: No adverse reaction; IV Status: Infusion continued upon admission bm8 19:59 Drug: AZITHromycin IVPB 500 mg IVPB once over 1 hrs; (mix in 250 mL NS) Route: IVPB; bm8 Infused Over: 1 hrs; Site: right antecubital; 19:59 Follow up: Response: No adverse reaction; IV Status: Infusion continued upon admission bm8 19:59 Drug: NS 0.9% IV 1000 ml IV at 1 bolus Per protocol; to be given as a bolus over 60 bm8 minutes Route: IV; Rate: 1 bolus; Site: right antecubital; 19:59 Follow up: IV Status: Infusion continued upon admission bm8 Medication: 19:57 VIS not applicable for this client. bm8 Outcome: 18:32 Decision to Hospitalize by Provider. ec2 19:57 Admitted to ER Hold. Please see [facility] for further documentation. bm8 19:57 Condition: stable 19:57 Instructed on the need for admit, Demonstrated understanding of instructions, follow-up care, medications, 06/30 10:04 Patient left the ED. iw Signatures: Dispatcher [employer] Anabella Saini RN RN iw Jeffries, Jennifer jj6 Campbell, Kaitlyn, RN RN kc6 Annmarie Kwon RN RN cm10 Chavez Marie MD MD ec2 Isis Camargo Brad RN RN bm8 Corrections: (The following items were deleted from the chart) 06/29 19:59 19:59 IV Status: Infusion continued upon admission bm8 bm8
--- NOTE | 2024-06-29 18:33 | EDPHYS ---
Physician Documentation [facility] Name: Rachael Knox Age: 39 yrs Sex: Female : 1985 Arrival Date: 06/29/2024 Time: 16:53 Bed 27 Private MD: ED Physician Chavez Marie HPI: 06/29 17:06 This 39 yrs old Female presents to ER via Ambulatory with complaints of ec2 Shortness Of Breath. 17:07 Patient arrives today for reported shortness of breath. History of asthma. Reports ec2 recent admission for pneumonia. Has not been taking her medications due to money issues.. 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 - Infectious Disease History:: Denies. - Social history:: Smoking status: Patient denies any tobacco usage or history of. ROS: 17:07 Constitutional: as per hpi ec2 Exam: 17:07 Constitutional: GEN: NAD Head: atraumatic Eyes: EOMI Ears: External ears are ec2 normal. CV: regular rate LUNGS: no respiratory distress ABD: non-distended SKIN: no evidence of rashes MSK: no evidence of trauma Vital Signs: 17:00 BP 113 / 53; Pulse 79; Resp 21; Temp 97.8(O); Pulse Ox 97% on R/A; Weight 165.11 kg; cm10 Height 5 ft. 5 in. ; Pain 0/10; 18:05 BP 103 / 60; Pulse 76; Resp 18 S; Pulse Ox 77% on R/A; kc6 18:05 Pulse Ox 98% on 5 lpm NC; kc6 19:07 BP 112 / 83; Pulse 67; Resp 18 S; Pulse Ox 97% on 5 lpm NC; kc6 17:00 Body Mass Index 60.57 (165.11 kg, 165.1 cm) cm10 17:00 Pain Scale: Adult cm10 MDM: 17:00 Medical Screening Exam initiated ec2 17:08 Data reviewed: vital signs, nurses notes. ED course: Patient arrives today for ec2 shortness of breath with a history of asthma. Examination is with reassuring cardiac exam, mild tachypnea documented, reassuring lung sounds. Will obtain lab work, EKG, chest x-ray.. 17:46 ED course: EKG independently reviewed and interpreted by me, shows sinus rhythm with a ec2 rate of 75, no acute ST segment elevations, intervals are nonactionable.. 18:00 ED course: Patient signed out pending labs and x-ray.. ec2 18:02 ED course: Patient requiring oxygen, will eventually admit pending labs. ec2 18:32 ED course: Will admit the patient for hypoxia, asthma saturation, discussed case with ec2 hospitalist who will accept patient for admission.. 06/29 17:03 Order name: Basic Metabolic Panel; Complete Time: 18:28 ec2 06/29 17:03 Order name: CBC with Diff ec2 06/29 18:05 Order name: Blood Culture Adult (2) ec2 06/29 18:05 Order name: Lactate w/ 2H reflex if indic. ec2 06/29 18:13 Order name: ABG; Complete Time: 18:33 ec2 06/29 18:32 Order name: CBC Smear Scan EDMS 02/ 19:23 Order name: Urinalysis w/ reflexes EDMS 06/29 17:03 Order name: XRAY Chest (1 view); Complete Time: 18:02 ec2 06/29 17:03 Order name: EKG; Complete Time: 17:03 ec2 06/29 17:03 Order name: Cardiac monitoring; Complete Time: 17:53 ec2 06/29 17:03 Order name: EKG - Nurse/Tech; Complete Time: 17:53 ec2 06/29 17:03 Order name: IV Saline Lock; Complete Time: 17:53 ec2 06/29 17:03 Order name: Labs collected and sent; Complete Time: 17:53 ec2 06/29 17:03 Order name: O2 Per Protocol; Complete Time: 17:38 ec2 06/29 17:03 Order name: O2 Sat Monitoring; Complete Time: 17:38 ec2 Administered Medications: 17:53 Drug: DuoNeb Nebulize (3:1) (2.5 mg - 0.5 mg) 3 ml Nebulizer once Route: Nebulizer; kc6 19:08 Follow up: Response: No adverse reaction kc6 17:53 Drug: MethylPrednisoLONE IVP 125 mg IVP once Route: IVP; Site: right antecubital; kc6 19:08 Follow up: Response: No adverse reaction [facility] 19:59 Drug: Rocephin IV 1 grams IV at bolus once; Given slow IV push per pharmacy bm8 instructions Route: IV; Rate: bolus; Site: right antecubital; 19:59 Follow up: Response: No adverse reaction; IV Status: Infusion continued upon admission bm8 19:59 Drug: AZITHromycin IVPB 500 mg IVPB once over 1 hrs; (mix in 250 mL NS) Route: IVPB; bm8 Infused Over: 1 hrs; Site: right antecubital; 19:59 Follow up: Response: No adverse reaction; IV Status: Infusion continued upon admission bm8 19:59 Drug: NS 0.9% IV 1000 ml IV at 1 bolus Per protocol; to be given as a bolus over 60 bm8 minutes Route: IV; Rate: 1 bolus; Site: right antecubital; 19:59 Follow up: IV Status: Infusion continued upon admission bm8 Disposition Summary: 06/29/24 18:32 Hospitalization Ordered Notes: Hospitalization Status: Inpatient Admission ec2 Provider: Tiny Vieira ec2 Condition: Stable ec2 Problem: an ongoing problem ec2 Symptoms: have improved ec2 Bed/Room Type: Standard ec2 Location: Telemetry/MedSurg (Inpatient)(06/30/24 09:10) [facility] Room Assignment: [facility](06/30/24 09:10) [facility] Diagnosis - Mild intermittent asthma with (acute) exacerbation ec2 Forms: - Medication Reconciliation Form ec2 - SBAR form ec2 - Leadership Thank You Letter ec2 Signatures: Dispatcher [employer] Cammie Buenrostro RN RN kc6 Jenna Cain rv1 Shannon Justin 6 Annmarie Kwon RN RN cm10 Chavez Marie MD MD 2 Izaiah Riggins RN RN bm8 Corrections: (The following items were deleted from the chart) 19:52 18:32 Telemetry/MedSurg (Inpatient) ec2 rv1 19:52 18:32 ec2 rv1 06/30 09:10 06/29 19:52 [facility] ER HOLD rv1 bc6 06/30 09:10 06/29 19:52 ERHOLD- rv1 bc6
[2024-06-29] MEDS ORDERED: AZITHROMYCIN 500 MG INJ IVPB ONE (18:54)
[2024-06-29] MEDS ORDERED: CEFTRIAXONE 1000 MG/VIAL ONE (18:54)
[2024-06-29] MEDS ORDERED: NA CHLORIDE 0.9% 250 ML ONE (18:54)
[2024-06-29] MEDS ORDERED: NA CHLORIDE 0.9% 1,000 ML ONE (18:55)
[2024-06-29 19:20] LABS: Anisocytosis 1+; Blood Morphology Comment NOT SEEN (NOT SEEN); Microcytosis 1+; Platelet Estimate ADEQ; White Blood Cell Scan OK (OK)
[2024-06-29 23:47] VITALS: BMI 60.4
[2024-06-30] MEDS: IPRATROPIUM BROM 0.5MG/2.5ML NEB SCH (01:00)
[2024-06-30] MEDS: ALBUTEROL 2.5 MG/3 ML NEB SOL NEB SCH (01:00)
[2024-06-30] MEDS ORDERED: METHYLPREDNISOLONE 40 MG INJ IV SCH (01:00)
[2024-06-30] MEDS ORDERED: predniSONE 20 MG TAB ONE (05:42)
[2024-06-30] MEDS: predniSONE 20 MG TAB PO ONE (06:00)
--- NOTE | 2024-06-30 06:28 | P.HP ---
Certification for Inpatient Patient admitted to: Inpatient With expected LOS: >2 Midnights Practitioner: I am a practitioner with admitting privileges, knowledge of patient current condition, hospital course, and medical plan of care. Services: Services provided to patient in accordance with Admission requirements found in Title 42 Section 412.3 of the Code of Federal Regulations Patient History Date of Service: 06/30/24 Reason for admission: asthma exacerbation History of Present Illness: 39-year-old female presents with complaints of shortness of breath. She reported that she was recently admitted in the hospital for pneumonia. She states that she was not taking her medications due to not being able to afford them. She was prescribed steroids. Her progressive dyspnea had gotten worse and returned to the ER. She reports that she normally takes albuterol and Dulera for her inhalers. In the emergency room she received nebulizers as well as methylprednisolone. Patient is feeling better. It was noted at 1 time she was saturating 77% on room air Allergies erythromycin base Allergy (Verified 12/02/23 03:10) Hives/Rash Penicillins Allergy (Verified 12/02/23 03:10) Hives/Rash Sulfa (Sulfonamide Antibiotics) Allergy (Verified 12/02/23 03:10) Hives/Rash sulfamethoxazole [From Bactrim] Allergy (Verified 12/02/23 03:10) Unknown trimethoprim [From Bactrim] Allergy (Verified 12/02/23 03:10) Unknown Home Medications: ALPRAZolam [Xanax*] 1 tab PO Q6H PRN 12/02/23 Albuterol Inhaler [Ventolin Inhaler*] 2 puff IH Q4HP PRN 30 Days #1 inhaler 06/14/24 Furosemide [Lasix] 20 mg PO DAILY #30 tab 06/15/24 Potassium Chloride 10 meq PO DAILY #30 tab 06/15/24 levoFLOXacin [Levofloxacin] 500 mg PO DAILY #7 tab 06/15/24 predniSONE [Prednisone*] 20 mg PO BID 5 Days #10 tab 06/15/24 - Past Medical/Surgical History Has patient received pneumonia vaccine in the past: No Diabetic: No -: hypothyroidism -: anxiety -: depression -: bipolar -: Asthma -: COVID pneumonia -: Sleep apnea -: c section -: tubal ligation -: tonsillectomy -: Adenoidectomy -: Hernia repair,abdominal, needs another repair -: Appendectomy Psychosocial/ Personal History: 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 - Family History Father Notes: drug addict, ETOH abuse Mother -: Heart disease, Hypertension, Lung disease, Diabetes, Stroke, Other (see notes) Notes: copd,chf - Social History Smoking Status: Current every day smoker Alcohol use: No CD- Drugs: No Caffeine use: Yes Review of Systems 10-point ROS is otherwise unremarkable Respiratory: Shortness of Breath, SOB with Excertion Physical Examination - Vital Signs Temperature: 97.8 F Blood Pressure: 113/72 Pulse: 83 Respirations: 18 Pulse Ox (%): 95 - Physical Exam General: Alert, In no apparent distress, Oriented x3 HEENT: Atraumatic, Normocephalic Respiratory: Clear to auscultation bilaterally, Diminished Cardiovascular: Regular rate/rhythm Gastrointestinal: Soft and benign, Non-distended Integumentary: No rashes Neurological: Normal speech - Studies Laboratory Data (last 24 hrs) 06/29/24 06/29/24 17:55 17:55 WBC 6.10 Hgb 8.8 L Hct 27.2 L Plt Count 354 Sodium 139 Potassium 3.6 BUN 12 Creatinine 1.07 H Glucose 79 Assessment and Plan - Problems (Diagnosis) (1) Hypoxemia Current Visit: Yes Status: Acute (2) Asthma exacerbation Current Visit: No Status: Acute Qualifiers: Asthma severity: moderate Asthma persistence: unspecified Qualified Code(s): J45.901 - Unspecified asthma with (acute) exacerbation - Plan 39-year-old female with history of asthma, bipolar presents with progressive shortness of breath and hypoxemia. Asthma exacerbation Morbid obesity Recent pneumonia Bipolar disorder Anxiety Fes-euhtvhy-ehgrxhuvl diabetes Hypertension Hypothyroidism Plan: Patient admitted to medical floor. Will continue oxygen as needed Continue IV Solu-Medrol staff reports difficulty with IV access will transition to oral prednisone for now Continue scheduled inhalers Case management consultation to assist with home medication access Restart home medications once reconciliation done Anticipate discharge in next 24 to 48 hours - Advance Directives Does patient have a Living Will: No Does patient have a Durable POA for Healthcare: No
[2024-06-30] MEDS: FLU (Fluarix Triv) TS24-25(6MOS UP)/PF 45 MCG/0.5 ML Syringe IM ONE (07:30)
[2024-06-30] MEDS ORDERED: ALBUTEROL 2.5 MG/3 ML NEB SOL ONE (08:36)
[2024-06-30] MEDS ORDERED: IPRATROPIUM BROM 0.5MG/2.5ML ONE (08:36)
[2024-06-30] MEDS: Mupirocin NASAL 2 APPL/1 GM TUBE NAS SCH (09:00)
[2024-06-30] MEDS ORDERED: predniSONE 20 MG TAB PO SCH (09:00)
[2024-06-30] MEDS: ENOXAPARIN 40 MG/0.4 ML SQ SCH (10:26)
--- NOTE | 2024-06-30 11:27 | EKG ---
Test Date: 2024-06-29 Test Time: 17:43:15 Head Sugar Reprocess Operator: Carl SI MEASUREMENT RESULTS: Intervals: Rate: 75 IA: QRSD: 92 QT: 360 QTc: 402 [place]: P: IA: QRS: 39 T: 187 INTERPRETIVE STATEMENTS: Normal sinus rhythm Low voltage QRS Cannot rule out Anterior infarct, age undetermined Abnormal ECG Compared to ECG 06/09/2024 21:23:33 Myocardial infarct finding now present Electronically Signed On 06-30-24 11:25:45 RETAIL WORKER by Reza Gómez
[2024-06-30] MEDS: METHYLPREDNISOLONE 40 MG INJ IV SCH (17:46)
[2024-06-30] MEDS: DULERA 200/5 (MOMETASONE/FORMOTEROL) INHALER IH SCH (21:00)
[2024-06-30] MEDS: ACETAMINOPHEN 325 MG TABLET PO PRN (23:53)
[2024-07-01 08:55] VITALS: BP 105/59; TEMP 97.6
[2024-07-01 09:59] VITALS: O2SAT 96
--- NOTE | 2024-07-01 11:04 | P.DS ---
Admission Date: 06/29/24 Discharge Date: 07/01/24 Disposition: ROUTINE DISCHARGE Discharge Condition: FAIR Reason for Admission: asthma exacerbation Brief History of Present Illness: 39-year-old morbidly obese woman presented with complaints of shortness of breath. She reported that she was recently admitted in the hospital for pneumonia. She states that she was not taking her medications due to not being able to afford them. She was prescribed steroids. She reports that she normally takes albuterol and Dulera for her inhalers. In the emergency room she received nebulizers as well as methylprednisolone. Patient was noted to be hypoxic on room air and was hospitalized for further management. Hospital Course: Acute asthma exacerbation Acute respiratory failure with hypoxia Morbid obesity Obesity hypoventilation. Patient admitted to the medical floor and treated for acute asthma exacerbation with scheduled nebulizer treatments and IV steroid. Patient was initially requiring oxygen but was subsequently weaned off oxygen to room air. Patient stated her respiratory symptoms have resolved and requested to go home. She was evaluated by pulmonary Dr. Lugo. Patient is discharged with refill for Dulera and albuterol inhaler. Vital Signs/Physical Exam: Temp Pulse Resp BP Pulse Ox 97.6 F 74 17 105/59 L 96 07/01/24 08:00 07/01/24 08:00 07/01/24 08:00 07/01/24 08:00 07/01/24 08:00 General: Alert, In no apparent distress, Oriented x3, Obese HEENT: Mucous membr. moist/pink, Sclerae nonicteric Neck: Supple, JVD not distended Respiratory: Normal air movement, Other (No crackles, no wheezes.) Cardiovascular: No edema, Regular rate/rhythm, Normal S1 S2 Gastrointestinal: Normal bowel sounds, Soft and benign, Non-distended, No tenderness Musculoskeletal: No swelling Integumentary: No rashes, No cyanosis Neurological: Normal speech, Normal strength at 5/5 x4 extr, Cranial nerves 3-12 intact Laboratory Data at Discharge: WBC 6.10 thou/uL (4.3-10.9) 06/29/24 17:55 Hgb 8.8 g/dL (12.0-15.0) L 06/29/24 17:55 Hct 27.2 % (36.0-45.0) L 06/29/24 17:55 Plt Count 354 thou/uL (152-406) 06/29/24 17:55 Sodium 139 mEq/L (136-145) 06/29/24 17:55 Potassium 3.6 mEq/L (3.5-5.1) 06/29/24 17:55 BUN 12 mg/dL (7-18) 06/29/24 17:55 Creatinine 1.07 mg/dL (0.55-1.02) H 06/29/24 17:55 Glucose 79 mg/dL (74-106) 06/29/24 17:55 Home Medications: Albuterol Inhaler [Ventolin Inhaler*] 2 puff IH Q4HP PRN #1 inhaler 07/01/24 Furosemide [Lasix*] 20 mg PO DAILY #30 tab 07/01/24 Mometasone/Formoterol [Dulera 200 Mcg/5 Mcg Inhaler] 2 puff IH BID #1 inhaler 07/01/24 Mupirocin Calcium [Bactroban Nasal*] 1 appl LANA BID #1 tube 07/01/24 Potassium Chloride 10 meq PO DAILY #30 tab 07/01/24 predniSONE [Prednisone*] 20 mg PO BID 5 Days #10 tab 07/01/24 New Medications: Albuterol Inhaler [Ventolin Inhaler*] 2 puff IH Q4HP PRN #1 inhaler PRN Reason: Shortness Of Breath Mupirocin Calcium [Bactroban Nasal*] 1 appl LANA BID #1 tube Mometasone/Formoterol [Dulera 200 Mcg/5 Mcg Inhaler] 2 puff IH BID #1 inhaler Furosemide [Lasix*] 20 mg PO DAILY #30 tab Potassium Chloride 10 meq PO DAILY #30 tab predniSONE [Prednisone*] 20 mg PO BID 5 Days #10 tab Followup: NONE,NONE [Primary Care Provider] - Time spent managing pt's care (in minutes): 35
== END 2024-07-01 11:48 | disposition home or self-care (01) | DRG 202 ==
LOC: ER 16:53 → ERHOLD 19:19 → 4TH 06-30 09:40
PROVIDERS: ADMIT Internal Medicine; ATTEND Internal Medicine
PROC: 4A033R1 Measurement of Arterial Saturation, Peripheral, Percutaneous Approach (ICD-10-PCS; 2024-06-29)
PROC: 02HV33Z Insertion of Infusion Device into Superior Vena Cava, Percutaneous Approach (ICD-10-PCS; principal; 2024-06-30)
DX: J45.21 Mild intermittent asthma with (acute) exacerbation (principal); J96.01 Acute respiratory failure with hypoxia; Z68.44 Body mass index [BMI] 60.0-69.9, adult; E66.2 Morbid (severe) obesity with alveolar hypoventilation; I10 Essential (primary) hypertension; E03.9 Hypothyroidism, unspecified; F41.9 Anxiety disorder, unspecified; F31.9 Bipolar disorder, unspecified; E11.9 Type 2 diabetes mellitus without complications; I25.2 Old myocardial infarction; F17.200 Nicotine dependence, unspecified, uncomplicated; Z88.0 Allergy status to penicillin; Z88.2 Allergy status to sulfonamides; Z88.1 Allergy status to other antibiotic agents; Z98.51 Tubal ligation status; Z90.49 Acquired absence of other specified parts of digestive tract; Z91.141 Patient's other noncompliance with medication regimen due to financial hardship; Z79.52 Long term (current) use of systemic steroids; Z79.899 Other long term (current) drug therapy; Z86.16 Personal history of COVID-19
CPT/HCPCS: 36415; 36600; 71045; 80048; 82805; 83605; 85025; 87040; 93005; 94640; 94760; 96374; 96375; 99285; J0696; J1650; J2919; J3535; J7030; J7050; J7512; J7613; J7644

== ENCOUNTER 2024-07-05 16:46 | Emergency (ER) | payer SELFPAY ==
[2024-07-05] MEDS ORDERED: DIPHENHYDRAMINE 50 MG/ML VIAL ONE (16:56)
[2024-07-05] MEDS ORDERED: dexAMETHasone 10 MG/ML VIAL ONE (16:56)
[2024-07-05] MEDS ORDERED: METOCLOPRAMIDE 10 MG/2mL INJ ONE (16:56)
[2024-07-05] MEDS ORDERED: NA CHLORIDE 0.9% 1,000 ML ONE (16:57)
[2024-07-05 17:10] LABS: Absolute Basophils 0.1 K/uL (0-0.5); Absolute Eosinophils 0.4 K/uL (0-0.5); Absolute Lymphocytes (CBC) 2.9 K/uL (0.7-4.9); Absolute Monocytes 0.3 K/uL (0.1-1.3); Absolute Neutrophil 4.5 K/uL (1.8-8.0); Basophils % 0.9 % (0-1.3); Eosinophils % 4.6 % (0-4.4); Hematocrit 30.5 % (36.0-45.0); Hemoglobin 9.7 g/dL (12.0-15.0); MCH 27.2 pg (27.0-35.0); MCHC 31.9 g/dL (32.0-36.0); MCV 85.3 fL (80-100); MPV 7.1 fL (7.6-11.3); Monocytes % 4.3 % (3.3-12.3); Neutrophils % 55.2 % (41.7-73.7); Nucleated Red Blood Cells % 0.1 % (0-0); Platelets 328 thou/uL (152-406); RBC Red Blood Cell Count 3.58 M/uL (3.86-4.86); Red Cell Distribution Width 20.9 % (12.1-15.2)
[2024-07-05 17:28] LABS: Albumin 3.6 g/dL (3.4-5.0); Anion Gap 6.7 mEq/L (5.0-15.0); Bilirubin Total 0.3 mg/dL (0.2-1.0); Globulin 3.7 g/dL (2.3-3.5); Potassium 3.7 mEq/L (3.5-5.1); Protein, Total 7.3 g/dL (6.4-8.2)
--- NOTE | 2024-07-05 18:29 | RAD REPORT ---
EXAM: CT Head Brain Wo Cont HISTORY: HEADACHE COMPARISON: 04/12/2019 TECHNIQUE: Multiple contiguous axial images were obtained for a CT of the brain without contrast. Sag ittal and coronal reformats were performed. One or more of the following dose reduction techniques were used: Automated exposure control, adjus tment of the mA and kV according to patient size, and iterative reconstruction. Unless otherwise specified, incidental findings do not require dedicated imaging follow-up. FINDINGS: No evidence of hydrocephalus, intracranial hemorrhage, or extra-axial fluid collection. The brain is normal in morphology. The calvarium is intact. The visualized paranasal sinuses and mastoid air cells are essentially clear . IMPRESSION: No evidence of acute intracranial abnormality.
[2024-07-05] MEDS ORDERED: KETOROLAC 30 MG/ML INJ ONE (18:46)
--- NOTE | 2024-07-05 19:09 | ER ---
Nurse's Notes [facility] Name: Rachael Knox Age: 39 yrs Sex: Female : 1985 Arrival Date: 07/05/2024 Time: 16:46 Bed 6 Private MD: Diagnosis: Headache Presentation: 07/05 16:52 Chief complaint: EMS states: patient called for a bad headache and she said her speech ko1 was slurred. Stroke scale 0. Coronavirus screen: At this time, the client does not indicate any symptoms associated with coronavirus-19. Ebola Screen: No symptoms or risks identified at this time. Initial Sepsis Screen: Does the patient meet any 2 criteria? No. Patient's initial sepsis screen is negative. Does the patient have a suspected source of infection? No. Patient's initial sepsis screen is negative. Risk Assessment: Do you want to hurt yourself or someone else? Patient reports no desire to harm self or others. Onset of symptoms was July 05, 2024. 16:52 Method Of Arrival: EMS: [facility] ko1 16:52 Acuity: DARSHAN 3 ko1 Triage Assessment: 16:53 General: Appears in no apparent distress. Behavior is calm, cooperative, appropriate ko1 for age. Pain: Complains of pain in top of head. Historical: - Allergies: 16:53 Bactrim; ko1 16:53 mycins; ko1 16:53 PENICILLINS; ko1 16:53 Sulfa (Sulfonamide Antibiotics); ko1 - Home Meds: 16:53 Xanax 1 mg Oral tablet [Active]; albuterol sulfate 90 mcg/actuation Inhl HFA Aerosol ko1 Inhaler [Active]; - PMHx: 16:53 Anemia; Anxiety; Asthma; Bipolar disorder; Blood transfusions; cardiac arrest; ko1 depressive disorder; Hypertension; Hypothyroidism; NIDDM; - PSHx: 16:53 Appendectomy; section; breast; dilation and curettage; Tonsillectomy; hernia ko1 repair; tubal ligation; - Immunization history:: Adult Immunizations unknown. - Infectious Disease History:: Denies. - Social history:: Smoking status: unknown. Screenin:10 [facility] ED Fall Risk Assessment (Adult) History of falling in the last 3 months, ld1 including since admission No falls in past 3 months (0 pts) Confusion or Disorientation No (0 pts) Intoxicated or Sedated No (0 pts) Impaired Gait No (0 pts) Mobility Assist Device Used No (0 pt) Altered Elimination No (0 pt) Score/Fall Risk Level 0 - 2 = Low Risk Oriented to surroundings, Hourly rounding (assess needs \T\ fall precautionary measures) done. Abuse screen: Denies threats or abuse. Denies injuries from another. Nutritional screening: No deficits noted. Tuberculosis screening: No symptoms or risk factors identified. Assessment: 17:10 General: Appears in no apparent distress. comfortable, Behavior is cooperative, ld1 anxious. Pain: Complains of pain in face Pain does not radiate. Pain currently is 8 out of 10 on a pain scale. Quality of pain is described as throbbing, Pain began suddenly, Is continuous. Neuro: Level of Consciousness is awake, alert, obeys commands, Oriented to person, place, time, situation. Cardiovascular: Capillary refill < 3 seconds Patient's skin is warm and dry. Respiratory: Airway is patent Respiratory effort is even, unlabored. GI: Abdomen is round non-distended. GI:. : No signs and/or symptoms were reported regarding the genitourinary system. EENT: No signs and/or symptoms were reported regarding the EENT system. Derm: No signs and/or symptoms reported regarding the dermatologic system. Musculoskeletal: No signs and/or symptoms reported regarding the musculoskeletal system. 19:10 Reassessment: Patient and/or family updated on plan of care and expected duration. Pain br2 level reassessed. Patient is alert, oriented x 3, equal unlabored respirations, skin warm/dry/pink. Patient states feeling better. Patient states symptoms have improved. Vital Signs: 17:10 BP 111 / 73; Pulse 79; Resp 18; Pulse Ox 94% on R/A; ld1 18:51 BP 121 / 85; Pulse 64; Resp 16; Pulse Ox 98% ; ko1 19:32 BP 121 / 85; Pulse 66; Resp 18; Temp 97.1(O); Pulse Ox 94% on R/A; Pain 5/10; br2 19:32 Pain Scale: Adult br2 [place] Coma Score: 17:05 Eye Response: spontaneous(4). Motor Response: obeys commands(6). Verbal Response: kb oriented(5). Total: 15. ED Course: 16:49 Patient arrived in ED. kb 16:49 Liliane Diallo FNP-C is [facility]. kb 16:50 Junito Sutton MD is Attending Physician. kb 16:53 Triage completed. ko1 16:53 Arm band placed on right wrist. Patient placed in an exam room, on a stretcher, on ko1 pulse oximetry, Patient notified of wait time. 17:05 CMP Sent. zm 17:05 CBC with Diff Sent. zm 17:05 Initial lab(s) drawn, by me, sent to lab. Inserted saline lock: 18 gauge in right zm antecubital area, using aseptic technique. Blood collected. Flushed with 10 mL NS. 17:10 Patient has correct armband on for positive identification. Bed in low position. Call ld1 light in reach. Side rails up X2. Pulse ox on. NIBP on. Door closed. Noise minimized. Warm blanket given. 17:39 CT Head Brain wo Cont In Process Unspecified. EDMS 18:03 Naya Dover, RN is Primary Nurse. ld1 18:51 Provided Education on: meds. ko1 18:51 No provider procedures requiring assistance completed. ko1 19:31 IV discontinued, intact, bleeding controlled, No redness/swelling at site. Pressure br2 dressing applied. Administered Medications: 17:13 Drug: NS 0.9% IV 1000 ml IV at 1000 ml once; to be given as a bolus over 60 minutes ld1 Route: IV; Rate: 1000 ml; Site: right upper arm; 17:13 Drug: diphenhydrAMINE IVP 12.5 mg IVP once Route: IVP; Site: right upper arm; ld1 17:28 Follow up: Response: No adverse reaction ko1 17:13 Drug: metoCLOPramide IVP 10 mg IVP once; over 1 to 2 minutes Route: IVP; Site: right ld1 upper arm; 17:28 Follow up: Response: No adverse reaction ko1 17:13 Drug: Decadron - Dexamethasone IVP 10 mg IVP once Route: IVP; Site: right upper arm; ld1 17:28 Follow up: Response: No adverse reaction ko1 18:47 Drug: Ketorolac IVP 15 mg IVP once Route: IVP; Site: right upper arm; ko1 Medication: 17:10 VIS not applicable for this client. ld1 Outcome: 19:08 Discharge ordered by MD. perez 19:31 Discharged to home ambulatory, br2 19:31 Condition: stable 19:31 Discharge instructions given to patient, Instructed on discharge instructions, follow up and referral plans. Demonstrated understanding of instructions, follow-up care, 19:33 Patient left the ED. br2 Signatures: Dispatcher [employer] EDMA Liliane Diallo FNP-C FNP-Naya Mayorga RN RN ld1 Kyleigh Kwon Kathy RN RN ko1 Halima Ceja RN RN br2
--- NOTE | 2024-07-05 19:09 | EDPHYS ---
Physician Documentation [facility] Name: Rachael Knox Age: 39 yrs Sex: Female : 1985 Arrival Date: 07/05/2024 Time: 16:46 Bed 6 Private MD: ED Physician Junito Sutton HPI: 07/05 17:05 This 39 yrs old Female presents to ER via EMS with complaints of headache. kb 17:05 Pt is a 39 year old female who presents for migraines that have been intermittent for 5 kb days. States today she felt like some of her words were slurred and her cheeks were tensing up. Denies nausea, vomiting. States she was recently hospitalized for pneumonia and the headaches started during the hospital stay. States her other symptoms have resolved. . Historical: - Allergies: 16:53 Bactrim; ko1 16:53 mycins; ko1 16:53 PENICILLINS; ko1 16:53 Sulfa (Sulfonamide Antibiotics); ko1 - Home Meds: 16:53 Xanax 1 mg Oral tablet [Active]; albuterol sulfate 90 mcg/actuation Inhl HFA Aerosol ko1 Inhaler [Active]; - PMHx: 16:53 Anemia; Anxiety; Asthma; Bipolar disorder; Blood transfusions; cardiac arrest; ko1 depressive disorder; Hypertension; Hypothyroidism; NIDDM; - PSHx: 16:53 Appendectomy; section; breast; dilation and curettage; Tonsillectomy; hernia ko1 repair; tubal ligation; - Immunization history:: Adult Immunizations unknown. - Infectious Disease History:: Denies. - Social history:: Smoking status: unknown. ROS: 17:04 Constitutional: As per HPI kb Exam: 17:04 Constitutional: This is a well developed, well nourished patient who is awake, alert, kb and in no acute distress. Head/Face: Normocephalic, atraumatic. Eyes: Pupils equal round and reactive to light, extra-ocular motions intact. Lids and lashes normal. Conjunctiva and sclera are non-icteric and not injected. Cornea within normal limits. Periorbital areas with no swelling, redness, or edema. ENT: Moist Mucous membranes Cardiovascular: Regular rate Respiratory: Respirations even and unlabored. No increased work of breathing. Talking in full sentences Skin: Warm, dry with normal turgor. Normal color. MS/ Extremity: Pulses equal, no cyanosis. Neurovascular intact. Full, normal range of motion. Neuro: Awake and alert, GCS 15, oriented to person, place, time, and situation. Vital Signs: 17:10 BP 111 / 73; Pulse 79; Resp 18; Pulse Ox 94% on R/A; ld1 18:51 BP 121 / 85; Pulse 64; Resp 16; Pulse Ox 98% ; ko1 19:32 BP 121 / 85; Pulse 66; Resp 18; Temp 97.1(O); Pulse Ox 94% on R/A; Pain 5/10; br2 19:32 Pain Scale: Adult br2 [place] Coma Score: 17:05 Eye Response: spontaneous(4). Motor Response: obeys commands(6). Verbal Response: kb oriented(5). Total: 15. MDM: 16:50 Medical Screening Exam initiated kb 17:05 Data reviewed: vital signs, nurses notes. kb 19:07 Differential diagnosis: intracerebral hemorrhage, migraine, sinusitis, tension kb headache. Historians other than the Patient: EMS: [facility]. Counseling: I had a detailed discussion with the patient and/or guardian regarding the historical points, exam findings, and any diagnostic results supporting the discharge/admit diagnosis, lab results, radiology results, the need for outpatient follow up, a family practitioner, to return to the emergency department if symptoms worsen or persist or if there are any questions or concerns that arise at home. 07/05 16:50 Order name: CBC with Diff kb 07/05 16:50 Order name: CMP; Complete Time: 17:31 kb 07/05 16:50 Order name: CT Head Brain wo Cont; Complete Time: 18:32 kb 07/05 16:50 Order name: IV Start; Complete Time: 17:05 kb Administered Medications: 17:13 Drug: NS 0.9% IV 1000 ml IV at 1000 ml once; to be given as a bolus over 60 minutes ld1 Route: IV; Rate: 1000 ml; Site: right upper arm; 17:13 Drug: diphenhydrAMINE IVP 12.5 mg IVP once Route: IVP; Site: right upper arm; ld1 17:28 Follow up: Response: No adverse reaction ko1 17:13 Drug: metoCLOPramide IVP 10 mg IVP once; over 1 to 2 minutes Route: IVP; Site: right ld1 upper arm; 17:28 Follow up: Response: No adverse reaction ko1 17:13 Drug: Decadron - Dexamethasone IVP 10 mg IVP once Route: IVP; Site: right upper arm; ld1 17:28 Follow up: Response: No adverse reaction ko1 18:47 Drug: Ketorolac IVP 15 mg IVP once Route: IVP; Site: right upper arm; ko1 Disposition: 20:16 Co-signature as Attending Physician, Junito Sutton MD I reviewed the patient's care rn provided by the Advanced Practice Provider and agree with the diagnosis and treatment plan. Disposition Summary: 07/05/24 19:08 Discharge Ordered Notes: Location: Home kb Condition: Stable kb Diagnosis - Headache kb Followup: kb - With: Private Physician - When: 2 - 3 days - Reason: Recheck today's complaints, Continuance of care, Re-evaluation by your physician Followup: kb - With: Emergency Department - When: As needed - Reason: Worsening of condition Discharge Instructions: - Discharge Summary Sheet kb - General Headache Without Cause, [id number] kb Forms: - Medication Reconciliation Form kb - Antibiotic Education kb - Prescription Opioid Use kb - Patient Portal Instructions kb - Leadership Thank You Letter kb Signatures: Dispatcher [employer] Liliane Noel, SUPERVISOR PA[employer]ING [employer]ARD-Ramesh CHESTERP-Junito Santamaria MD MD rn Sims, Lauren RN RN ld1 Lexie Andrew RN RN ko1
[2024-07-05 20:33] LABS: Anisocytosis 1+; Blood Morphology Comment NOTED (NOT SEEN); Platelet Estimate ADEQ; Poikilocytosis 1+; White Blood Cell Scan OK (OK)
[2024-07-05 23:48] VITALS: BP 121/85; O2SAT 98
== END 2024-07-05 19:33 | disposition home or self-care (01) ==
LOC: ER 16:46
DX: R51.9 Headache, unspecified (principal)
CPT/HCPCS: 36415; 70450; 80053; 85025; J1100; J1200; J2765; J7030

== ENCOUNTER 2024-07-20 17:02 | Inpatient (IN) | payer SELFPAY ==
[2024-07-20] MEDS ORDERED: IPRATROPIUM BROM 0.5MG/2.5ML ONE (17:37)
[2024-07-20] MEDS ORDERED: ALBUTEROL 2.5 MG/3 ML NEB SOL ONE (17:37)
[2024-07-20] MEDS ORDERED: LORAZEPAM 1 MG TABLET ONE (17:37)
[2024-07-20 17:40] LABS: Absolute Basophils 0.1 K/uL (0-0.5); Absolute Eosinophils 0.3 K/uL (0-0.5); Absolute Lymphocytes (CBC) 2.7 K/uL (0.7-4.9); Absolute Monocytes 0.3 K/uL (0.1-1.3); Absolute Neutrophil 3.5 K/uL (1.8-8.0); Basophils % 1.3 % (0-1.3); Hematocrit 28.9 % (36.0-45.0); Hemoglobin 9.5 g/dL (12.0-15.0); Lymphocytes % 38.3 % (15.3-44.8); MCH 27.7 pg (27.0-35.0); MCHC 32.7 g/dL (32.0-36.0); MCV 84.7 fL (80-100); MPV 7.5 fL (7.6-11.3); Monocytes % 4.2 % (3.3-12.3); Neutrophils % 51.2 % (41.7-73.7); Nucleated Red Blood Cells % 0.1 % (0-0); Platelets 298 thou/uL (152-406); RBC Red Blood Cell Count 3.41 M/uL (3.86-4.86); Red Cell Distribution Width 21.3 % (12.1-15.2)
[2024-07-20 17:58] LABS: ALT/SGPT 25 U/L (13-56); AST/SGOT 30 U/L (15-37); Albumin 3.6 g/dL (3.4-5.0); Albumin/Globulin Ratio 0.9 (1.1-1.8); Alkaline Phosphatase 43 U/L (45-117); BUN Blood Urea Nitrogen 12 mg/dL (7-18); Bicarbonate 32 mEq/L (21-32); Bilirubin Direct < 0.2 mg/dL (0-0.2); Bilirubin Indirect, Calculated 0.1 mg/dL (0.2-0.8); Bilirubin Total 0.3 mg/dL (0.2-1.0); Globulin 3.8 g/dL (2.3-3.5); Glomerular Filtration Rate 62 ml/min (=/>90); Glucose Level 90 mg/dL (74-106); Protein, Total 7.4 g/dL (6.4-8.2); Sodium Level 137 mEq/L (136-145); Troponin High Sensitivity < 3.0 pg/mL (<58.9)
--- NOTE | 2024-07-20 18:07 | RAD REPORT ---
EXAMINATION: ONE VIEW CHEST XR CLINICAL INDICATION: DYSPNEA TECHNIQUE: Frontal chest projection is submitted. Examination is limited by patient positioning and t echnique. COMPARISON: 06/29/2024 FINDINGS: Moderate bilateral pulmonary opacities may represent pulmonary edema or pneumonia. There is linear at electasis in both lung bases. The heart is mildly enlarged. No displaced fractures identified.
[2024-07-20 18:15] LABS: Anisocytosis SLIGHT; Blood Morphology Comment NOTED (NOT SEEN); Platelet Estimate ADEQ; Polychromasia SLIGHT; White Blood Cell Scan OK (OK)
[2024-07-20] MEDS ORDERED: ALBUTEROL 2.5 MG/3 ML NEB SOL NEB PRN (20:04)
[2024-07-20] MEDS ORDERED: ONDANSETRON 4 MG/2 ML VIAL IV PRN (20:04)
[2024-07-20] MEDS ORDERED: IPRATROPIUM BROM 0.5MG/2.5ML NEB PRN (20:04)
--- NOTE | 2024-07-20 20:04 | EDPHYS ---
Physician Documentation [facility] Name: Rachael Knox Age: 39 yrs Sex: Female : 1985 Arrival Date: 07/20/2024 Time: 17:02 Bed 26 Private MD: ED Physician Mil Lance HPI: 07/20 17:37 This 39 yrs old Female presents to ER via Ambulatory with complaints of rt Anxiety. 17:37 Patient presents to the ED with chest tightness, dyspnea for about the past 2 days. She rt reports that her anxiety has been worsening since running out of her anxiety medicines. She denies other acute complaints at this time, symptoms are moderate in severity, no other aggravating or alleviating factors.. 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 - Infectious Disease History:: Denies. - Social history:: Smoking status: Patient denies any tobacco usage or history of. - Family history:: not pertinent. ROS: 17:37 Constitutional: Negative for fever, chills, and weight loss, Abdomen/GI: Negative for rt abdominal pain, nausea, vomiting, diarrhea, and constipation, MS/Extremity: Negative for injury and deformity, Skin: Negative for injury, rash, and discoloration, 17:37 Cardiovascular: Positive for chest pain, Negative for edema, 17:37 Respiratory: Positive for cough, shortness of breath, 17:37 Psych: Positive for anxiety, Negative for suicidal ideation, Exam: 17:37 Constitutional: This is a well developed, well nourished patient who is awake, alert, rt and in no acute distress. Chest/axilla: Normal chest wall appearance and motion. Nontender with no deformity. No lesions are appreciated. Cardiovascular: Regular rate and rhythm with a normal S1 and S2. No gallops, murmurs, or rubs. Normal PMI, no JVD. No pulse deficits. Abdomen/GI: Soft, non-tender, with normal bowel sounds. No distension or tympany. No guarding or rebound. No evidence of tenderness throughout. Skin: Warm, dry with normal turgor. Normal color with no rashes, no lesions, and no evidence of cellulitis. MS/ Extremity: Pulses equal, no cyanosis. Neurovascular intact. Full, normal range of motion. Neuro: Awake and alert, GCS 15, oriented to person, place, time, and situation. Cranial nerves II-XII grossly intact. Motor strength 5/5 in all extremities. Sensory grossly intact. Cerebellar exam normal. Normal gait. 17:37 Respiratory: Faint wheezes heard diffusely, no respiratory distress, 17:58 ECG was reviewed by the Attending Physician. rt Vital Signs: 17:12 BP 107 / 87; Pulse 84; Resp 18; Temp 98.4; Pulse Ox 88% ; Weight 161.93 kg; Height 5 db ft. 5 in. ; 17:24 Pulse Ox 96% on 2 lpm NC; me1 18:00 BP 131 / 83; Pulse 81; Resp 19; Pulse Ox 94% on 2 lpm NC; me1 19:00 BP 121 / 80; Pulse 74; Resp 16; Pulse Ox 97% on 2 lpm NC; me1 20:00 BP 152 / 90; Pulse 75; Resp 17; Pulse Ox 98% on 2 lpm NC; me1 21:00 BP 123 / 67; Pulse 83; Resp 16; Pulse Ox 99% on 2 lpm NC; me1 17:12 Body Mass Index 59.41 (161.93 kg, 165.1 cm) db MDM: 17:14 Medical Screening Exam initiated rt 20:22 Differential diagnosis: Asthma, pneumonia, bronchospasm, viral syndrome. Data reviewed: rt vital signs, nurses notes, lab test result(s), EKG, radiologic studies. Consideration of Admission/Observation Patient was admitted/placed on observation. Management of patient was discussed with the following: Hospitalist: Agrees to admit. I considered the following discharge prescriptions or medication management in the emergency department Medications were administered in the Emergency Department. See MAR. Independent interpretation of the following test(s) in the Emergency Department X-Ray: My interpretation is Bilateral infiltrate seen on interpretation of x-ray images. Test considered but Not performed: CT: Low suspicion for pulmonary bliss, CT angiogram not indicated. Care significantly affected by the following chronic conditions: Asthma. Counseling: I had a detailed discussion with the patient and/or guardian regarding the historical points, exam findings, and any diagnostic results supporting the discharge/admit diagnosis, lab results, radiology results, the need for further work-up and treatment in the hospital. Response to treatment: the patient's symptoms have markedly improved after treatment. 07/20 17:15 Order name: Basic Metabolic Panel; Complete Time: 08:58 rt 07/20 17:15 Order name: CBC with Diff; Complete Time: 18:16 rt 07/20 17:15 Order name: LFT's; Complete Time: 08:58 rt 07/20 17:15 Order name: Troponin HS; Complete Time: 08:58 rt 07/20 17:47 Order name: CBC Smear Scan; Complete Time: 18:16 EDMS 07/20 20:06 Order name: NT PRO-BNP EDMS 07/20 20:09 Order name: Magnesium EDMS 07/20 20:09 Order name: Phosphorus EDMS 07/20 20:09 Order name: Urinalysis w/ reflexes EDMS 07/20 20:09 Order name: Basic Metabolic Panel EDMS 07/20 20:09 Order name: Basic Metabolic Panel; Complete Time: 08:58 EDMS 07/20 20:09 Order name: CBC with Automated Diff EDMS 07/20 20:09 Order name: CBC with Automated Diff; Complete Time: 08:58 EDMS 07/20 22:52 Order name: Glucose, Ancillary Testing; Complete Time: 08:58 EDMS 07/20 23:50 Order name: Phosphorus; Complete Time: 08:58 EDMS 07/20 23:50 Order name: NT PRO-BNP; Complete Time: 08:58 EDMS 07/20 23:50 Order name: Magnesium; Complete Time: 08:58 EDMS 07/21 08:33 Order name: CBC Smear Scan; Complete Time: 08:58 EDMS 07/21 08:44 Order name: Glucose, Ancillary Testing; Complete Time: 08:58 EDMS 07/21 11:39 Order name: Glucose, Ancillary Testing EDMS 07/20 17:15 Order name: XRAY Chest (1 view); Complete Time: 18:14 rt 07/20 17:15 Order name: EKG; Complete Time: 17:15 rt 07/20 17:15 Order name: Cardiac monitoring; Complete Time: 17:49 rt 07/20 17:15 Order name: EKG - Nurse/Tech; Complete Time: 17:49 rt 07/20 17:15 Order name: IV Saline Lock; Complete Time: 17:41 rt 07/20 17:15 Order name: Labs collected and sent; Complete Time: 17:41 rt 07/20 17:15 Order name: O2 Per Protocol; Complete Time: 17:41 rt 07/20 17:15 Order name: O2 Sat Monitoring; Complete Time: 17:41 rt EC:58 Rate is 80 beats/min. Rhythm is regular, Normal Sinus Rhythm with No ectopy. QRS [place] rt is Normal. CO interval is normal. QRS interval is normal. QT interval is normal. No Q waves. No ST changes noted. Interpreted by me. Administered Medications: 17:41 Drug: Albuterol Inhalation 2.5 mg Inhalation once Route: Inhalation; me1 18:11 Follow up: Response: No adverse reaction; Wheezing diminished me1 17:41 Drug: Ipratropium Inhalation Aerosol 0.5 mg Inhalation once Route: Inhalation; me1 18:11 Follow up: Response: No adverse reaction; Wheezing diminished me1 17:41 Drug: LORazepam PO 1 mg PO once Route: PO; me1 18:10 Follow up: Response: No adverse reaction; Anxiety decreased me1 20:59 Drug: LevaQUIN IVPB 750 mg IVPB once Route: IVPB; Site: right antecubital; me1 23:00 Follow up: Response: No adverse reaction; IV Status: Completed infusion; IV Intake: me1 150ml Disposition Summary: 07/20/24 20:04 Hospitalization Ordered Notes: Hospitalization Status: Inpatient Admission rt Provider: Prince Sabi rt Condition: Fair rt Problem: new rt Symptoms: have improved rt Bed/Room Type: Standard rt Location: Telemetry/MedSurg (Inpatient)(07/21/24 12:40) hb Room Assignment: 217(07/21/24 12:40) hb Diagnosis - Asthma exacerbation rt - Community-acquired pneumonia rt - Hypoxia rt Forms: - Medication Reconciliation Form rt - SBAR form rt - Leadership Thank You Letter rt Signatures: Dispatcher [employer] EDMS Birdie Singleton sp Junito Sutton MD MD rn Baxter, Heather, RN RN hb Nicole Carrillo RN RN db Mil Lance MD MD rt Sendy Cabello, RN RN me1 Corrections: (The following items were deleted from the chart) 21:38 20:04 Telemetry/MedSurg (Inpatient) rt sp : 20:04 rt sp 07/21 12:40 07/20 21:38 [facility] ER HOLD sp hb 07/21 12:40 07/20 21:38 ERHOLD- sp hb
--- NOTE | 2024-07-20 20:04 | ER ---
Nurse's Notes [facility] Name: Rachael Knox Age: 39 yrs Sex: Female : 1985 Arrival Date: 07/20/2024 Time: 17:02 Bed 26 Private MD: Diagnosis: Asthma exacerbation;Community-acquired pneumonia;Hypoxia Presentation: 07/20 17:11 Chief complaint: Patient states: CHEST TIGHTNESS, SOB STATES HAS BAD ANXIETY AND IS OUT me1 OF ANXIETY MEDICATION. SYMPTOMS X 2 DAYS. 17:12 Coronavirus screen: Client denies travel out of the [place] in the last 14 days. At this db time, the client does not indicate any symptoms associated with coronavirus-19. Ebola Screen: Patient negative for fever greater than or equal to 101.5 degrees Fahrenheit, and additional compatible Ebola Virus Disease symptoms Patient denies exposure to infectious person. Patient denies travel to an Ebola-affected area in the 21 days before illness onset. No symptoms or risks identified at this time. Initial Sepsis Screen: Does the patient meet any 2 criteria? No. Patient's initial sepsis screen is negative. Does the patient have a suspected source of infection? No. Patient's initial sepsis screen is negative. Risk Assessment: Do you want to hurt yourself or someone else? Patient reports no desire to harm self or others. Onset of symptoms was July 18, 2024. 17:12 Method Of Arrival: Ambulatory db 17:12 Acuity: DARSHAN 3 db Triage Assessment: 17:14 General: Appears in no apparent distress. comfortable, Behavior is calm, cooperative. db Pain: Complains of pain in chest. Neuro: Level of Consciousness is awake, alert, obeys commands, Oriented to person, place, time, situation. Cardiovascular: Reports shortness of breath, CHEST TIGHTNESS. [employer]CH[employer]ECTURE [employer]NS[employer]IP: 17:14 LMP 07/15/2024, unknown db Historical: - Allergies: 17:15 Bactrim; db 17:15 PENICILLINS; db 17:15 mycins; db 17:15 Sulfa (Sulfonamide Antibiotics); db - Home Meds: 17:15 albuterol sulfate 90 mcg/actuation Inhl HFA Aerosol Inhaler [Active]; db - PMHx: 17:15 cardiac arrest; Bipolar disorder; depressive disorder; Anxiety; Anemia; Blood db transfusions; Hypothyroidism; Asthma; Hypertension; NIDDM; - PSHx: 17:15 breast; dilation and curettage; section; hernia repair; Tonsillectomy; db Appendectomy; tubal ligation; - Immunization history:: Adult Immunizations unknown. - Infectious Disease History:: Denies. - Social history:: Smoking status: Patient denies any tobacco usage or history of. - Family history:: not pertinent. Screenin:59 [facility] ED Fall Risk Assessment (Adult) History of falling in the last 3 months, me1 including since admission No falls in past 3 months (0 pts) Confusion or Disorientation No (0 pts) Intoxicated or Sedated No (0 pts) Impaired Gait No (0 pts) Mobility Assist Device Used No (0 pt) Altered Elimination No (0 pt) Score/Fall Risk Level 0 - 2 = Low Risk Maintained a safe environment, Provided non-skid footwear, Hourly rounding (assess needs \T\ fall precautionary measures) done. Abuse screen: Denies threats or abuse. Nutritional screening: No deficits noted. Tuberculosis screening: No symptoms or risk factors identified. Assessment: 17:59 General: Appears uncomfortable, obese, well developed, Behavior is cooperative, me1 appropriate for age, anxious, crying, Reports CHEST TIGHTNESS, SOB STATES HAS BAD ANXIETY AND IS OUT OF ANXIETY MEDICATION. SYMPTOMS X 2 DAYS. Pain: Complains of pain in chest Pain does not radiate. Pain currently is 4 out of 10 on a pain scale. Quality of pain is described as tightness Pain began suddenly, Is continuous. Neuro: Level of Consciousness is awake, alert, obeys commands, Oriented to person, place, time, situation, Appropriate for age. Cardiovascular: Reports chest pain, Patient's skin is warm and dry. Respiratory: Airway is patent Respiratory effort is even, unlabored, Respiratory pattern is regular, symmetrical. GI: No signs and/or symptoms were reported involving the gastrointestinal system. : No signs and/or symptoms were reported regarding the genitourinary system. EENT: No signs and/or symptoms were reported regarding the EENT system. Derm: Skin is intact, is healthy with good turgor, Skin is pink, warm \T\ dry. Musculoskeletal: No signs and/or symptoms reported regarding the musculoskeletal system. Vital Signs: 17:12 BP 107 / 87; Pulse 84; Resp 18; Temp 98.4; Pulse Ox 88% ; Weight 161.93 kg; Height 5 db ft. 5 in. ; 17:24 Pulse Ox 96% on 2 lpm NC; me1 18:00 BP 131 / 83; Pulse 81; Resp 19; Pulse Ox 94% on 2 lpm NC; me1 19:00 BP 121 / 80; Pulse 74; Resp 16; Pulse Ox 97% on 2 lpm NC; me1 20:00 BP 152 / 90; Pulse 75; Resp 17; Pulse Ox 98% on 2 lpm NC; me1 21:00 BP 123 / 67; Pulse 83; Resp 16; Pulse Ox 99% on 2 lpm NC; me1 17:12 Body Mass Index 59.41 (161.93 kg, 165.1 cm) db ED Course: 17:04 Patient arrived in ED. mr 17:06 Mil Lance MD is Attending Physician. rt 17:14 Triage completed. db 17:14 Arm band placed on. db 17:22 Sendy Cabello, RN is Primary Nurse. me1 17:41 Basic Metabolic Panel Sent. me1 17:41 CBC with Diff Sent. me1 17:41 LFT's Sent. me1 17:41 Troponin HS Sent. me1 17:49 Initial lab(s) drawn, by me, sent to lab. EKG done, by ED staff, reviewed by Mil Lance MD. Inserted saline lock: 22 gauge in right antecubital area, using aseptic technique. 17:59 XRAY Chest (1 view) In Process Unspecified. EDMS 17:59 Patient has correct armband on for positive identification. Bed in low position. Call ne1 light in reach. Side rails up X 1. Provided Education on: POC. Verbalized understanding.. Client placed on continuous cardiac and pulse oximetry monitoring. NIBP monitoring applied. sdc teacher on. Pulse ox on. NIBP on. 17:59 No provider procedures requiring assistance completed. Patient maintains SpO2 me1 saturation greater than 95% on room air. 20:03 Prince Celestin MD is Hospitalizing Provider. rt 23:31 Patient admitted, IV remains in place. me1 Administered Medications: 17:41 Drug: Albuterol Inhalation 2.5 mg Inhalation once Route: Inhalation; me1 18:11 Follow up: Response: No adverse reaction; Wheezing diminished me1 17:41 Drug: Ipratropium Inhalation Aerosol 0.5 mg Inhalation once Route: Inhalation; me1 18:11 Follow up: Response: No adverse reaction; Wheezing diminished me1 17:41 Drug: LORazepam PO 1 mg PO once Route: PO; me1 18:10 Follow up: Response: No adverse reaction; Anxiety decreased me1 20:59 Drug: LevaQUIN IVPB 750 mg IVPB once Route: IVPB; Site: right antecubital; me1 23:00 Follow up: Response: No adverse reaction; IV Status: Completed infusion; IV Intake: me1 150ml Medication: 17:59 VIS not applicable for this client. me1 Intake: 23:00 IV: 150ml; Total: 150ml. me1 Outcome: 20:04 Decision to Hospitalize by Provider. rt 23:31 Admitted to ER Hold. Please see [facility] for further documentation. me1 23:31 Condition: stable 23:31 Instructed on the need for admit, 07/21 13:31 Patient left the ED. ld1 Signatures: Dispatcher [employer] EDNC Anat Rose, Warren Reg mr Naya Dover, RN RN ld1 Nicole Carrillo, VITA RN db Mil Lance MD MD rt Sendy Cabello, VITA RN me1 Corrections: (The following items were deleted from the chart) 07/20 17:16 17:12 Temp 98.4F; db db 17:16 17:12 BP 107 / 87; Pulse 84bpm; Resp 18bpm; Pulse Ox 88%; Temp 98.4F; db db 17:16 17:12 BP 107 / 87; Pulse 84bpm; Resp 18bpm; Pulse Ox 88%; Temp 98.4F; 161.93 kg; Height db 5 ft. 5 in.; BMI: 59.4; db 17:23 17:11 Chief complaint: Patient states: CHEST TIGHTNESS, SOB STATES HAS BAD ANXIETY AND me1 IS OUT OF ANXIETY MEDICATION. SYMPTOMS X 2 DAYS. db 17:59 17:11 Chief complaint: Patient states: CHEST TIGHTNESS, SOB STATES HAS BAD ANXIETY AND me1 IS OUT OF ANXIETY MEDICATION. SYMPTOMS X 2 DAYS. me1 21:02 19:00 BP 121 / 80; Pulse 74bpm; Resp 16bpm; Pulse Ox 97%; me1 me1
[2024-07-20] MEDS: FUROSEMIDE 40 MG/4 ML VIAL IV SCH (20:10)
[2024-07-20] MEDS ORDERED: SODIUM CHLORIDE 0.9% 10ML INJ IV PRN (20:14)
[2024-07-20] MEDS: PANTOPRAZOLE 40 MG INJ IVP SCH (20:14)
--- NOTE | 2024-07-20 20:14 | P.HP ---
Certification for Inpatient Patient admitted to: Inpatient With expected LOS: >2 Midnights Practitioner: I am a practitioner with admitting privileges, knowledge of patient current condition, hospital course, and medical plan of care. Services: Services provided to patient in accordance with Admission requirements found in Title 42 Section 412.3 of the Code of Federal Regulations Patient History Date of Service: 07/20/24 Reason for admission: shortness of breath History of Present Illness: Patient is a 39 year old female with morbid obesity and Asthma. She returns to the hospital with another episode of asthma exacerbation. Patient was just here roughly 3 weeks ago for a similar presentation. Her CXR shows bilateral opacities concerning for pulmonary edema vs PNA. She is not septic. She is being admitted with Asthma exacerbation. Allergies erythromycin base Allergy (Verified 12/02/23 03:10) Hives/Rash Penicillins Allergy (Verified 12/02/23 03:10) Hives/Rash Sulfa (Sulfonamide Antibiotics) Allergy (Verified 12/02/23 03:10) Hives/Rash sulfamethoxazole [From Bactrim] Allergy (Verified 12/02/23 03:10) Unknown trimethoprim [From Bactrim] Allergy (Verified 12/02/23 03:10) Unknown Home Medications: Albuterol Inhaler [Ventolin Inhaler*] 2 puff IH Q4HP PRN #1 inhaler 07/01/24 Furosemide [Lasix*] 20 mg PO DAILY #30 tab 07/01/24 Mometasone/Formoterol [Dulera 200 Mcg/5 Mcg Inhaler] 2 puff IH BID #1 inhaler 07/01/24 Mupirocin Calcium [Bactroban Nasal*] 1 appl LANA BID #1 tube 07/01/24 Potassium Chloride 10 meq PO DAILY #30 tab 07/01/24 predniSONE [Prednisone*] 20 mg PO BID 5 Days #10 tab 07/01/24 - Past Medical/Surgical History Diabetic: No -: hypothyroidism -: anxiety -: depression -: bipolar -: Asthma -: COVID pneumonia -: Sleep apnea -: c section -: tubal ligation -: tonsillectomy -: Adenoidectomy -: Hernia repair,abdominal, needs another repair -: Appendectomy Psychosocial/ Personal History: 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 - Family History Father Notes: drug addict, ETOH abuse Mother -: Heart disease, Hypertension, Lung disease, Diabetes, Stroke, Other (see notes) Notes: copd,chf - Social History Alcohol use: No CD- Drugs: No Caffeine use: Yes Physical Examination - Physical Exam General: Acute distress, Obese HEENT: Atraumatic, Normocephalic Respiratory: Diminished Cardiovascular: No edema, Normal pulses, Regular rate/rhythm, Normal S1 S2 Neurological: Normal speech - Studies Laboratory Data (last 24 hrs) 07/20/24 07/20/24 17:34 17:34 WBC 6.90 Hgb 9.5 L Hct 28.9 L Plt Count 298 Sodium 137 Potassium 4.0 BUN 12 Creatinine 1.14 H Glucose 90 Total Bilirubin 0.3 AST 30 ALT 25 Alkaline Phosphatase 43 L Assessment and Plan - Problems (Diagnosis) (1) Asthma exacerbation Current Visit: No Status: Acute Qualifiers: (2) Community acquired bacterial pneumonia Current Visit: No Status: Acute (3) Hypoxemia Current Visit: No Status: Acute (4) Morbid obesity Current Visit: No Status: Acute (5) Obesity hypoventilation syndrome Current Visit: No Status: Acute - Plan Assessment Patient is a 39 year old female with morbid obesity and Asthma. She is now being readmitted for acute asthma exacerbation after a recent hospitalization 3 weeks ago for the same issues. CXR here shows bilateral opacities concerning for pulmonary edema vs PNA Acute hypoxemic respiratory faliure Asthma exacerbation Community acauired PNA Morbid obesity PLAN: Will admit inpatient Supplemental O2 Start scheduled IV solumedrol and levofloxacin Dulera Will also give a trial of lasix PPI for GI ppx Resume rest of home medications upon reconciliation - Advance Directives Does patient have a Living Will: No Does patient have a Durable POA for Healthcare: No
[2024-07-20] MEDS: Levofloxacin 750mg IV 750 MG/150 ML BAG IV SCH (21:00)
[2024-07-20] MEDS: DULERA 200/5 (MOMETASONE/FORMOTEROL) INHALER IH SCH (21:00)
[2024-07-20 22:23] VITALS: BMI 59.3
[2024-07-20] MEDS ORDERED: PANTOPRAZOLE 40 MG INJ ONE (22:27)
[2024-07-20] MEDS ORDERED: FUROSEMIDE 40 MG/4 ML VIAL ONE (22:27)
[2024-07-20 23:50] LABS: Magnesium 2.7 mg/dL (1.6-2.4); NT PRO-BNP 8 pg/mL (<125); Phosphorus 3.5 mg/dL (2.5-4.9)
[2024-07-21] MEDS: METHYLPREDNISOLONE 40 MG INJ IV SCH (01:00)
[2024-07-21] MEDS ORDERED: METHYLPREDNISOLONE 40 MG INJ ONE ×2 (01:45→08:27)
[2024-07-21 08:04] LABS: Absolute Basophils 0.1 K/uL (0-0.5); Absolute Lymphocytes (CBC) 0.9 K/uL (0.7-4.9); Absolute Monocytes 0.1 K/uL (0.1-1.3); Absolute Neutrophil 5.6 K/uL (1.8-8.0); Basophils % 0.9 % (0-1.3); Eosinophils % 0.5 % (0-4.4); Hematocrit 28.5 % (36.0-45.0); Hemoglobin 9.2 g/dL (12.0-15.0); Lymphocytes % 13.7 % (15.3-44.8); MCH 27.5 pg (27.0-35.0); MCHC 32.2 g/dL (32.0-36.0); MCV 85.5 fL (80-100); MPV 8.6 fL (7.6-11.3); Monocytes % 1.2 % (3.3-12.3); Neutrophils % 83.7 % (41.7-73.7); Platelets 296 thou/uL (152-406); RBC Red Blood Cell Count 3.33 M/uL (3.86-4.86); Red Cell Distribution Width 21.2 % (12.1-15.2)
[2024-07-21 08:21] LABS: Anion Gap 9.4 mEq/L (5.0-15.0); Potassium 4.4 mEq/L (3.5-5.1)
[2024-07-21] MEDS ORDERED: ENOXAPARIN 40 MG/0.4 ML SQ ONE (08:27)
[2024-07-21] MEDS ORDERED: PANTOPRAZOLE 40 MG INJ ONE (08:27)
[2024-07-21] MEDS ORDERED: FUROSEMIDE 40 MG/4 ML VIAL ONE (08:27)
[2024-07-21 08:32] LABS: Anisocytosis 1+; Blood Morphology Comment NOTED (NOT SEEN); Platelet Estimate ADEQ; White Blood Cell Scan OK (OK)
[2024-07-21] MEDS: ENOXAPARIN 40 MG/0.4 ML SQ SCH (08:36)
--- NOTE | 2024-07-21 10:52 | P.PN ---
Subjective Date of Service: 07/21/24 Chief Complaint: shortness of breath Subjective: C/O voiced (complaints of continued shortness of breath and that she is in need of home med Rx's Levothyroxine and Alprazolam) Review of Systems 10-point ROS is otherwise unremarkable General: Weakness Respiratory: Cough, Dry, Shortness of Breath, Wheezing Cardiovascular: Orthopnea Gastrointestinal: Unremarkable Genitourinary: Unremarkable Musculoskeletal: Unremarkable Integumentary: Unremarkable Neurological: Unremarkable Lymphatics: Unremarkable Physical Examination - Vital Signs Temperature: 98.3 F Blood Pressure: 122/76 Pulse: 83 Respirations: 18 Pulse Ox (%): 94 - Physical Exam General: Alert, In no apparent distress, Other (Anxious ) HEENT: Atraumatic, PERRLA, EOMI Neck: Supple Respiratory: Diminished, Expiratory wheezes Cardiovascular: No edema Capillary refill: <2 Seconds Gastrointestinal: Normal bowel sounds, Soft and benign, Non-distended Musculoskeletal: No tenderness Integumentary: No rashes Neurological: Normal speech, Normal tone, Normal affect External genitalia: Deferred Rectal: Deferred - Studies Laboratory Data (last 24 hrs) 07/20/24 07/20/24 17:34 17:34 WBC 6.90 Hgb 9.5 L Hct 28.9 L Plt Count 298 Sodium 137 Potassium 4.0 BUN 12 Creatinine 1.14 H Glucose 90 Phosphorus 3.5 Magnesium 2.7 H Total Bilirubin 0.3 AST 30 ALT 25 Alkaline Phosphatase 43 L Medications List Reviewed: Yes Assessment And Plan - Current Problems (Diagnosis) (1) Asthma exacerbation Current Visit: No Status: Acute Plan: 1. Asthma exacerbation - Breathing Tx's and IV steroids - Continue home meds once verified and appropriate - Patient needs refills of home meds prior to DC - Pulmonology consulted in ED, follow up for recs - CM consulted for outpatient assistance due to frequent re-admissions 2. Pneumonia - Levofloxacin for now - Duonebs - Wean oxygen for O2 sat goal greater than 92% - CXR with bilateral opacities edema - One time dose of IV Lasix given while in ED - RESPAN; negative 3. Hyperglycemia - Most likely secondary to steroid use - Accu-check ACHS - Carb controlled diet - Last A1C 6.0% in 2020 4. Hypothyroidism, Chronic - Last TSH 58.2, T4 0.7 in 11/2023 - TSH/T4 ordered for AM - Reports not taking at home due to lack of Rx - Restart Levothyroxine after lab review 5. Bipolar/Anxiety, Chronic - Reports home use of Alprazolam when able to get prescribed - Received Ativan while in ED DVT Ppx: Lovenox GI Ppx: IV Protonix Code Status: Full Code Qualifiers: Asthma severity: moderate Asthma persistence: persistent Qualified Code(s): J45.41 - Moderate persistent asthma with (acute) exacerbation Discharge Plan: Home Plan to discharge in: 24 Hours - Code Status/Comfort Care Code Status Assessed: Yes (Full)
--- NOTE | 2024-07-21 16:45 | EKG ---
Test Date: 2024-07-20 Test Time: 17:47:16 Outreach Rep: MEASUREMENT RESULTS: Intervals: Rate: 80 KS: 152 QRSD: 94 QT: 522 QTc: 602 [place]: P: 59 KS: 152 QRS: 19 T: 40 INTERPRETIVE STATEMENTS: Normal sinus rhythm Low voltage QRS Cannot rule out Anterior infarct, age undetermined Abnormal ECG Compared to ECG 06/29/2024 17:43:15 No significant changes Electronically Signed On 07-21-24 16:43:30 ASSISTANT DISTRICT ATTORNEY by Reza Gómez
[2024-07-21] MEDS: ACETAMINOPHEN 500 MG TAB PO PRN (21:33)
[2024-07-22 05:04] VITALS: O2SAT 94
[2024-07-22 12:52] VITALS: BP 124/63; TEMP 98.3
--- NOTE | 2024-07-22 13:54 | P.DS ---
Admission Date: 07/20/24 Discharge Date: 07/22/24 Disposition: ROUTINE DISCHARGE Discharge Condition: GOOD Reason for Admission: shortness of breath Brief History of Present Illness: Patient is a 39 year old female with morbid obesity and Asthma. She returns to the hospital with another episode of asthma exacerbation. Patient was just here roughly 3 weeks ago for a similar presentation. Her CXR shows bilateral opacities concerning for pulmonary edema vs PNA. She is not septic. She is being admitted with Asthma exacerbation Hospital Course: (1) Asthma exacerbation Current Visit: No Status: Acute Qualifiers: (2) Community acquired bacterial pneumonia Current Visit: No Status: Acute (3) Hypoxemia Current Visit: No Status: Acute (4) Morbid obesity Current Visit: No Status: Acute (5) Obesity hypoventilation syndrome Current Visit: No Status: Acute Patient was admitted to the hospital for asthma exacerbation, pneumonia. She improved with IV antibiotics, steroids and is breathing well on room air today. She will be sent a prescription for oral steroids, antibiotics and will need to follow-up with primary care doctor and pulmonology outpatient. Follow-up with your primary care doctor in 4 to 6 weeks to recheck your TSH no dose adjustments in her thyroid medications Follow-up with pulmonologyDrDiane Lugo in 1 to 2 weeks Vital Signs/Physical Exam: Temp Pulse Resp BP Pulse Ox 98.3 F 87 16 124/63 90 L 07/22/24 12:00 07/22/24 12:00 07/22/24 12:00 07/22/24 12:00 07/22/24 12:00 General: Alert, In no apparent distress, Oriented x3 HEENT: Atraumatic, PERRLA Neck: Supple, JVD not distended Respiratory: Clear to auscultation bilaterally, Normal air movement Cardiovascular: Regular rate/rhythm, Normal S1 S2 Gastrointestinal: Normal bowel sounds Musculoskeletal: No tenderness Integumentary: No rashes Neurological: Normal speech, Normal affect Laboratory Data at Discharge: WBC 6.70 thou/uL (4.3-10.9) 07/21/24 06:07 Hgb 9.2 g/dL (12.0-15.0) L 07/21/24 06:07 Hct 28.5 % (36.0-45.0) L 07/21/24 06:07 Plt Count 296 thou/uL (152-406) 07/21/24 06:07 Sodium 137 mEq/L (136-145) 07/21/24 07:49 Potassium 4.4 mEq/L (3.5-5.1) 07/21/24 07:49 BUN 9 mg/dL (7-18) 07/21/24 07:49 Creatinine 1.08 mg/dL (0.55-1.02) H 07/21/24 07:49 Glucose 135 mg/dL (74-106) H 07/21/24 07:49 Phosphorus Cancelled 07/20/24 Unknown Magnesium Cancelled 07/20/24 Unknown Total Bilirubin 0.3 mg/dL (0.2-1.0) 07/20/24 17:34 AST 30 U/L (15-37) 07/20/24 17:34 ALT 25 U/L (13-56) 07/20/24 17:34 Alkaline Phosphatase 43 U/L (45-117) L 07/20/24 17:34 Home Medications: Albuterol Inhaler [Ventolin Inhaler*] 2 puff IH Q4HP PRN #1 inhaler 07/01/24 Furosemide [Lasix*] 20 mg PO DAILY #30 tab 07/01/24 Mometasone/Formoterol [Dulera 200 Mcg/5 Mcg Inhaler] 2 puff IH BID #1 inhaler 07/01/24 Mupirocin Calcium [Bactroban Nasal*] 1 appl LANA BID #1 tube 07/01/24 Potassium Chloride 10 meq PO DAILY #30 tab 07/01/24 LORazepam [Ativan] 0.5 mg PO DAILY PRN 5 Days #5 tab 07/22/24 Levothyroxine Sodium 150 mcg PO DAILY #30 tab 07/22/24 levoFLOXacin [Levaquin*] 750 mg PO DAILY #5 tab 07/22/24 predniSONE [Deltasone*] 10 mg PO BID 7 Days #14 tab 07/22/24 New Medications: LORazepam [Ativan] 0.5 mg PO DAILY PRN 5 Days #5 tab PRN Reason: Anxiety predniSONE [Deltasone*] 10 mg PO BID 7 Days #14 tab levoFLOXacin [Levaquin*] 750 mg PO DAILY #5 tab Levothyroxine Sodium 150 mcg PO DAILY #30 tab Physician Discharge Instructions: Patient was admitted to the hospital for asthma exacerbation, pneumonia. She improved with IV antibiotics, steroids and is breathing well on room air today. She will be sent a prescription for oral steroids, antibiotics and will need to follow-up with primary care doctor and pulmonology outpatient. Follow-up with your primary care doctor in 4 to 6 weeks to recheck your TSH no dose adjustments in her thyroid medications Follow-up with pulmonologyDr. Brittney in 1 to 2 weeks Diet: Regular Activity: Ad olena Followup: Lloyd Lugo MD [ACTIVE - CAN ADMIT] - NONE,NONE [Primary Care Provider] - 1 Week Time spent managing pt's care (in minutes): 45
== END 2024-07-22 13:43 | disposition home or self-care (01) | DRG 193 ==
LOC: ER 17:02 → ERHOLD 20:04 → 2ND 07-21 13:11
PROVIDERS: ADMIT Internal Medicine; ATTEND Hospitalist
DX: J15.9 Unspecified bacterial pneumonia (principal); J96.01 Acute respiratory failure with hypoxia; J45.41 Moderate persistent asthma with (acute) exacerbation; Z68.43 Body mass index [BMI] 50.0-59.9, adult; E66.2 Morbid (severe) obesity with alveolar hypoventilation; I10 Essential (primary) hypertension; F41.9 Anxiety disorder, unspecified; E03.9 Hypothyroidism, unspecified; E78.00 Pure hypercholesterolemia, unspecified; F31.9 Bipolar disorder, unspecified; I25.2 Old myocardial infarction; T38.0X5A Adverse effect of glucocorticoids and synthetic analogues, initial encounter; R73.9 Hyperglycemia, unspecified; Z88.0 Allergy status to penicillin; Z88.1 Allergy status to other antibiotic agents; Z88.8 Allergy status to other drugs, medicaments and biological substances; Z98.51 Tubal ligation status; Z86.16 Personal history of COVID-19; Z79.52 Long term (current) use of systemic steroids; Z90.49 Acquired absence of other specified parts of digestive tract; Z79.899 Other long term (current) drug therapy; Z91.148 Patient's other noncompliance with medication regimen for other reason
CPT/HCPCS: 36415; 71045; 80048; 80076; 82947; 83735; 83880; 84100; 84439; 84443; 84484; 85025; 93005; 94010; 94760; 96365; 96366; 99285; J1650; J1940; J2470; J2919; J3535; J7613; J7644

== ENCOUNTER 2024-09-11 23:03 | Emergency (ER) | payer SELFPAY ==
[2024-09-12] MEDS ORDERED: DICYCLOMINE HCL 10 MG CAP ONE (00:34)
[2024-09-12] MEDS ORDERED: PROMETHAZINE 25 MG TABLET ONE (00:35)
[2024-09-12] MEDS ORDERED: ONDANSETRON 4 MG (ODT) TAB ONE (00:35)
[2024-09-12] MEDS ORDERED: DIPHENOX/ATROP SULF 1 TAB PO ONE (00:35)
--- NOTE | 2024-09-12 02:02 | ER ---
Nurse's Notes [facility] Name: Rachael Knox Age: 39 yrs Sex: Female : 1985 Arrival Date: 09/11/2024 Time: 23:03 Bed 22 Private MD: Diagnosis: Acute viral gastroenteritis, acute nausea vomiting and diarrhea, acute noncardiac chest pain Presentation: 09/11 23:19 Chief complaint: Patient states: NAUSEA/DIARRHEA/ANXIOUS-CHEST PAIN, SOB. Coronavirus br2 screen: Client denies travel out of the [place] in the last 14 days. Ebola Screen: Patient denies exposure to infectious person. Initial Sepsis Screen: Does the patient meet any 2 criteria? No. Patient's initial sepsis screen is negative. Does the patient have a suspected source of infection? No. Patient's initial sepsis screen is negative. Risk Assessment: Do you want to hurt yourself or someone else? Patient reports no desire to harm self or others. Onset of symptoms was September 10, 2024. 23:19 Method Of Arrival: Ambulatory br2 23:19 Acuity: DARSHAN 3 br2 Triage Assessment: 23:22 General: Appears uncomfortable, Behavior is calm, cooperative. br2 Historical: - Allergies: 23:22 Bactrim; br2 23:22 mycins; br2 23:22 PENICILLINS; br2 23:22 Sulfa (Sulfonamide Antibiotics); br2 - PMHx: 23:22 Anemia; Anxiety; Asthma; Bipolar disorder; Blood transfusions; cardiac arrest; br2 depressive disorder; Hypertension; Hypothyroidism; NIDDM; - PSHx: 23:22 Appendectomy; breast; section; hernia repair; dilation and curettage; tubal br2 ligation; Tonsillectomy; - Immunization history:: Adult Immunizations not up to date. - Infectious Disease History:: Denies. - Social history:: Smoking status: Patient/guardian denies using tobacco, Patient/guardian denies using alcohol, street drugs. - Family history:: not pertinent. Screenin/21 02:32 [facility] ED Fall Risk Assessment (Adult) History of falling in the last 3 months, jb4 including since admission No falls in past 3 months (0 pts) Confusion or Disorientation No (0 pts) Intoxicated or Sedated No (0 pts) Impaired Gait No (0 pts) Mobility Assist Device Used No (0 pt) Altered Elimination No (0 pt) Score/Fall Risk Level 0 - 2 = Low Risk Oriented to surroundings, Maintained a safe environment. Abuse screen: Denies threats or abuse. Nutritional screening: No deficits noted. Tuberculosis screening: No symptoms or risk factors identified. Assessment: 01:04 Reassessment: Patient appears in no apparent distress at this time. Patient and/or jb4 family updated on plan of care and expected duration. Pain level reassessed. Patient is alert, oriented x 3, equal unlabored respirations, skin warm/dry/pink. Vital Signs: 09/11 23:19 BP 120 / 72; Pulse 84; Resp 20; Temp 97; Weight 161.93 kg; Height 5 ft. 5 in. ; Pain br2 8/10; 23:19 Body Mass Index 59.41 (161.93 kg, 165.1 cm) br2 23:19 Pain Scale: Adult br2 Zach Coma Score: 09/13 02:22 Eye Response: spontaneous(4). Motor Response: obeys commands(6). Verbal Response: sp4 oriented(5). Total: 15. ED Course: 09/11 23:07 Patient arrived in ED. im 23:16 Donato Martin MD is Attending Physician. sp4 23:22 Triage completed. br2 09/12 00:07 EKG done, by ED staff, reviewed by Donato Martin MD. oe 01:00 Patient has correct armband on for positive identification. Bed in low position. Call jb4 light in reach. Side rails up X 1. 01:00 Provided Education on: plan of care. jb4 01:04 Fredrick Galicia, RN is Primary Nurse. jb4 02:30 No provider procedures requiring assistance completed. Patient did not have IV access jb4 during this emergency room visit. Administered Medications: 00:47 Drug: Ondansetron PO 4 mg PO once Route: PO; jb4 02:32 Follow up: Response: No adverse reaction; Marked relief of symptoms jb4 00:47 Drug: Promethazine PO 25 mg PO once Route: PO; jb4 02:32 Follow up: Response: No adverse reaction; Marked relief of symptoms jb4 00:47 Drug: Diphenoxylate-Atropine PO 2 tabs PO once Route: PO; jb4 02:32 Follow up: Response: No adverse reaction; Marked relief of symptoms jb4 00:47 Drug: Dicyclomine PO 20 mg PO once Route: PO; jb4 02:32 Follow up: Response: No adverse reaction; Marked relief of symptoms jb4 Medication: 02:32 VIS not applicable for this client. jb4 Outcome: 02:01 Discharge ordered by . sp4 02:30 Discharged to home ambulatory, jb4 02:30 Condition: stable 02:30 Discharge instructions given to patient, Instructed on discharge instructions, follow up and referral plans. medication usage, Demonstrated understanding of instructions, follow-up care, medications, Prescriptions given X 2, 02:32 Patient left the ED. jb4 Signatures: Fredrick Galicia, RN RN jb4 Qasim Marin Sergey, MD MD sp4 Savana Vann Belinda RN RN br2
--- NOTE | 2024-09-12 02:02 | EDPHYS ---
Physician Documentation [facility] Name: Rachael Knox Age: 39 yrs Sex: Female : 1985 Arrival Date: 09/11/2024 Time: 23:03 Bed 22 Private MD: ED Physician Donato Martin HPI: 09/11 23:16 This 39 yrs old Female presents to ER via Unassigned with complaints of sp4 Nausea/Vomiting/Diarrhea, Chest Pain, Shortness Of Breath. 09/13 02:22 39-year-old female presents with nausea vomiting and diarrhea, also complaining of some sp4 chest pains.. Historical: - Allergies: 09/11 23:22 Bactrim; br2 23:22 mycins; br2 23:22 PENICILLINS; br2 23:22 Sulfa (Sulfonamide Antibiotics); br2 - PMHx: 23:22 Anemia; Anxiety; Asthma; Bipolar disorder; Blood transfusions; cardiac arrest; br2 depressive disorder; Hypertension; Hypothyroidism; NIDDM; - PSHx: 23:22 Appendectomy; breast; section; hernia repair; dilation and curettage; tubal br2 ligation; Tonsillectomy; - Immunization history:: Adult Immunizations not up to date. - Infectious Disease History:: Denies. - Social history:: Smoking status: Patient/guardian denies using tobacco, Patient/guardian denies using alcohol, street drugs. - Family history:: not pertinent. ROS: 09/13 02:22 Constitutional: Negative for fever, chills, and weight loss, positive for nausea sp4 vomiting diarrhea, positive for chest pains All other systems are negative, Exam: 02:22 Constitutional: This is a well developed, well nourished patient who is awake, alert, sp4 and in no acute distress. Head/Face: Normocephalic, atraumatic. Eyes: Pupils equal round and reactive to light, extra-ocular motions intact. Lids and lashes normal. Conjunctiva and sclera are not injected. Cornea within normal limits. Periorbital areas with no swelling, redness, or edema. ENT: Nares patent. No nasal discharge, no septal abnormalities noted. Tympanic membranes are normal and external auditory canals are clear. Oropharynx with no redness, swelling, or masses, exudates, or evidence of obstruction, uvula midline. Mucous membranes moist. Neck: Trachea midline, no thyromegaly or masses palpated, and no cervical lymphadenopathy. Supple, full range of motion without nuchal rigidity, or vertebral point tenderness. Chest/axilla: Normal chest wall appearance and motion. Nontender with no deformity. No lesions are appreciated. Cardiovascular: Regular rate and rhythm with a normal S1 and S2. No gallops, murmurs, or rubs. Normal PMI, no JVD. No pulse deficits. Respiratory: Lungs have equal breath sounds bilaterally, clear to auscultation and percussion. No rales, rhonchi or wheezes noted. No increased work of breathing, no retractions or nasal flaring. Abdomen/GI: Soft, with normal bowel sounds. No distension or tympany. No guarding or rebound. No evidence of tenderness throughout. Back: No spinal tenderness. No costovertebral tenderness. Skin: Warm, dry with normal turgor. Normal color with no rashes, no lesions, and no evidence of cellulitis. MS/ Extremity: Pulses equal, no cyanosis. Neurovascular intact. Full, normal range of motion. Neuro: Awake and alert, GCS 15, oriented to person, place, time, and situation. Cranial nerves II-XII grossly intact. Motor strength 5/5 in all extremities. Sensory grossly intact. Psych: Awake, alert, with orientation to person, place and time. Behavior, mood, and affect are within normal limits Vital Signs: 09/11 23:19 BP 120 / 72; Pulse 84; Resp 20; Temp 97; Weight 161.93 kg; Height 5 ft. 5 in. ; Pain br2 8/10; 23:19 Body Mass Index 59.41 (161.93 kg, 165.1 cm) br2 23:19 Pain Scale: Adult br2 Zach Coma Score: 09/13 02:22 Eye Response: spontaneous(4). Motor Response: obeys commands(6). Verbal Response: sp4 oriented(5). Total: 15. MDM: 09/11 23:17 Medical Screening Exam initiated sp4 09/12 02:00 Differential diagnosis: Nonspecific abd pain, gastritis, viral gastroenteritis, sp4 gastroenteritis. Data reviewed: vital signs, nurses notes, old medical records, EKG. Consideration of Admission/Observation Escalation of care including admission/observation considered. ED course: Symptoms consistent with viral gastroenteritis. Stable for discharge home. 09/13 02:23 ED course: Stable for discharge home. Symptomatic improvement. sp4 09/11 23:16 Order name: EKG; Complete Time: 23:17 sp4 09/11 23:16 Order name: EKG - Nurse/Tech; Complete Time: 00:08 sp4 Administered Medications: 09/12 00:47 Drug: Ondansetron PO 4 mg PO once Route: PO; jb4 02:32 Follow up: Response: No adverse reaction; Marked relief of symptoms 4 00:47 Drug: Promethazine PO 25 mg PO once Route: PO; jb4 02:32 Follow up: Response: No adverse reaction; Marked relief of symptoms 4 00:47 Drug: Diphenoxylate-Atropine PO 2 tabs PO once Route: PO; jb4 02:32 Follow up: Response: No adverse reaction; Marked relief of symptoms 4 00:47 Drug: Dicyclomine PO 20 mg PO once Route: PO; jb4 02:32 Follow up: Response: No adverse reaction; Marked relief of symptoms jb4 Disposition Summary: 09/12/24 02:01 Discharge Ordered Notes: Location: Home sp4 Problem: new sp4 Symptoms: have improved sp4 Condition: Stable sp4 Diagnosis - Acute viral gastroenteritis, acute nausea vomiting and diarrhea, acute noncardiac sp4 chest pain Followup: sp4 - With: Private Physician - When: As needed - Reason: Discharge Instructions: - Discharge Summary Sheet sp4 - Viral Gastroenteritis, Adult, [id number]-[id number] sp4 Forms: - Patient Portal Instructions sp4 Prescriptions: - Lomotil 2.5-0.025 mg Oral tablet - take 1 tablet ORAL route every 6 hours As needed PRN diarrhea; 30 tablet; sp4 Refills: 0, Product Selection Permitted - promethazine 25 mg Oral tablet - take 1 tablet ORAL route every 6 hours As needed PRN nausea; 30 tablet; sp4 Refills: 0, Product Selection Permitted Addendum: 09/13/2024 21:54 Addendum: EKG 0002 normal sinus rhythm rate 85, no ST elevation or depression, normal s p4 intervals, no ectopy, no signs of acute ischemia. Normal axis, low voltage QRS appreciated. Signatures: Dispatcher [facility] EDMS Fredrick Galicia RN RN jb4 Donato Martin MD MD sp4 Halima Ceja, RN RN br2
[2024-09-12 02:36] VITALS: BP 120/72; TEMP 97
--- NOTE | 2024-09-14 12:45 | EKG ---
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
== END 2024-09-12 02:32 | disposition home or self-care (01) ==
LOC: ER 23:03
DX: A08.4 Viral intestinal infection, unspecified (principal); R07.89 Other chest pain
CPT/HCPCS: 93005; 99283; Q0162; Q0169

== ENCOUNTER 2024-12-28 00:48 | Inpatient (IN) | payer SELFPAY ==
[2024-12-28] MEDS ORDERED: LEVALBUTEROL 1.25 MG/3 ML NEB ONE (01:59)
[2024-12-28] MEDS ORDERED: HYDROCODONE/APAP 10/325 TAB ONE (02:30)
[2024-12-28 02:33] LABS: Absolute Lymphocytes (CBC) 2.0 K/uL (0.7-4.9); Hematocrit 26.4 % (36.0-45.0); Hemoglobin 8.3 g/dL (12.0-15.0); MCH 25.5 pg (27.0-35.0); MCHC 31.6 g/dL (32.0-36.0); MCV 80.9 fL (80-100); MPV 8.1 fL (7.6-11.3); Nucleated RBC Absolute Count 0.0 (0-0); Nucleated Red Blood Cells % 0.2 % (0-0); RBC Red Blood Cell Count 3.26 M/uL (3.86-4.86); White Blood Count 7.60 thou/uL (4.3-10.9)
[2024-12-28 02:49] LABS: PT Prothrombin Time 11.5 SECONDS (10-13.0); PTT, Activated Partial Thromb 33.4 SECONDS (27.2-37.4); Protime INR 1.02
[2024-12-28 02:59] LABS: ALT/SGPT 30.0 U/L (13-56); AST/SGOT 47.0 U/L (15-37); Albumin 3.9 g/dL (3.4-5.0); Albumin/Globulin Ratio 1.0 (1.1-1.8); Alkaline Phosphatase 55.0 U/L (45-117); Anion Gap 5.0 mEq/L (5.0-15.0); BUN Blood Urea Nitrogen 15.0 mg/dL (7-18); Globulin 3.9 g/dL (2.3-3.5); Glucose Level 94.0 mg/dL (74-106); NT PRO-BNP 15.0 pg/mL (<125); Potassium 4.0 mEq/L (3.5-5.1); Troponin High Sensitivity 5.8 pg/mL (<58.9)
[2024-12-28 03:09] LABS: Influenza A Ag Negative
[2024-12-28 03:10] LABS: Influenza B Ag Negative; SARS-CoV-2 Antigen Rapid Res Negative (Negative)
--- NOTE | 2024-12-28 03:45 | EDPHYS ---
Physician Documentation [facility] Name: Rachael Knox Age: 39 yrs Sex: Female : 1985 Arrival Date: 12/28/2024 Time: 00:48 Bed 13 Private MD: ED Physician Junito Sutton HPI: 12/28 01:28 This 39 yrs old Female presents to ER via Ambulatory with complaints of sob. rn 01:28 Patient reports shortness of breath. Has been short of breath for 3 days. Patient has rn history of anemia and is currently on her menstrual cycle. Patient states has heavy periods. Denies any fever or chills. No cough. No history of heart failure. No trauma.. Historical: - Allergies: 01:06 Bactrim; jb4 01:06 mycins; jb4 01:06 PENICILLINS; jb4 01:06 Sulfa (Sulfonamide Antibiotics); jb4 - PMHx: 01:06 Anemia; Anxiety; Asthma; Bipolar disorder; Blood transfusions; cardiac arrest; jb4 depressive disorder; Hypertension; Hypothyroidism; NIDDM; - PSHx: 01:06 Appendectomy; breast; section; dilation and curettage; hernia repair; jb4 Tonsillectomy; tubal ligation; - Immunization history:: Adult Immunizations up to date. - Infectious Disease History:: Denies. - Family history:: not pertinent. - Hospitalizations: : No recent hospitalization is reported. - Social history:: Smoking status: Patient denies any tobacco usage or history of. Patient/guardian denies using alcohol, street drugs, IV drugs. ROS: 01:28 Constitutional: Negative for fever, chills, and weight loss, Cardiovascular: Negative rn for chest pain, palpitations, and edema, Respiratory: Positive for shortness of breath Abdomen/GI: Negative for abdominal pain, nausea, vomiting, diarrhea, and constipation, MS/Extremity: Negative for injury and deformity, Skin: Negative for injury, rash, and discoloration, Neuro: Positive for generalized weakness and malaise Exam: 01:28 Constitutional: This is a well developed, well nourished patient who is awake, alert, rn appears anxious Head/Face: Normocephalic, atraumatic. Cardiovascular: Regular rate and rhythm. No pulse deficits. Respiratory: No increased work of breathing, no retractions or nasal flaring. Abdomen/GI: Soft, non-tender Skin: Pale skin MS/ Extremity: Pulses equal, no cyanosis. Neurovascular intact. Full, normal range of motion. Equal circumference. Neuro: Awake and alert, GCS 15 05:39 ECG was reviewed by the Attending Physician. rn Vital Signs: 01:04 BP 134 / 84; Pulse 85; Resp 18; Temp 98.8(O); Pulse Ox 80% on R/A; Weight 165.56 kg jb4 (R); Height 5 ft. 5 in. (R); 01:46 BP 133 / 94; Pulse 76; Resp 18; Pulse Ox 96% on R/A; Weight 166.47 kg; Height 5 ft. 5 tb4 in. ; Pain 6/10; 02:46 BP 127 / 59; Pulse 64; Resp 18; Pulse Ox 97% on R/A; tb4 03:37 BP 112 / 91; Pulse 56; Resp 18; Pulse Ox 97% on 3.5 lpm NC; Pain 6/10; tb4 04:45 BP 122 / 76; Pulse 61; Resp 18; Pulse Ox 96% on 3.5 lpm NC; Pain 6/10; tb4 01:46 Body Mass Index 61.07 (166.47 kg, 165.1 cm) tb4 01:46 Pain Scale: Adult tb4 03:37 Pain Scale: Adult tb4 04:45 Pain Scale: Adult tb4 01:04 placed on 3L NC now satting 97% jb4 MDM: 00:54 Medical Screening Exam initiated rn 03:43 Differential diagnosis: Anemia Anxiety Reaction Bronchitis pneumonia, Pneumothorax rn pulmonary edema. Data reviewed: vital signs, nurses notes, lab test result(s), EKG, radiologic studies, plain films, and as a result, I will admit patient. Consideration of Admission/Observation Patient was admitted/placed on observation. Escalation of care including admission/observation considered. Independent interpretation of the following test(s) in the Emergency Department X-Ray: My interpretation is Chest x-ray images show bilateral infiltrates per my interpretation. Counseling: I had a detailed discussion with the patient and/or guardian regarding the historical points, exam findings, and any diagnostic results supporting the discharge/admit diagnosis, lab results, radiology results, the need for further work-up and treatment in the hospital. Response to treatment: the patient's symptoms have mildly improved after treatment, and as a result, I will admit patient. 12/28 01:07 Order name: BNP; Complete Time: 03:34 rn 12/28 01:07 Order name: Blood Culture Adult (2) rn 12/28 01:07 Order name: CBC with Diff; Complete Time: 03:34 rn 12/28 01:07 Order name: CMP; Complete Time: 03:34 rn 12/28 01:07 Order name: Lactate w/ 2H reflex if indic.; Complete Time: 03:34 rn 12/28 01:07 Order name: Protime (+inr); Complete Time: 03:34 rn 12/28 01:07 Order name: Ptt, Activated; Complete Time: 03:34 rn 12/28 01:07 Order name: Troponin HS; Complete Time: 03:34 rn 12/28 01:08 Order name: COVID-19 Ag + Flu A+B Ag; Complete Time: 03:34 rn 12/28 01:08 Order name: Type And Screen; Complete Time: 03:34 rn 12/28 04:20 Order name: CBC with Automated Diff EDMS 08/ 04:20 Order name: CBC with Automated Diff EDMS 08/ 04:20 Order name: CBC with Automated Diff EDMS 08/ 04:20 Order name: CBC with Automated Diff EDMS 08/ 04:20 Order name: Comprehensive Metabolic Panel EDMS 08/ 04:20 Order name: Comprehensive Metabolic Panel EDMS 08/ 04:20 Order name: Comprehensive Metabolic Panel EDMS 08/ 04:20 Order name: Comprehensive Metabolic Panel EDMS 08/06 04:20 Order name: Magnesium EDMS 08/06 04:20 Order name: Magnesium EDMS 08/06 04:20 Order name: Magnesium EDMS 08/06 04:20 Order name: Magnesium EDMS 08/ 01:07 Order name: Chest Single View XRAY rn 12/28 01:07 Order name: EKG; Complete Time: 01:08 rn 12/28 01:07 Order name: Accucheck; Complete Time: 03:19 rn 12/28 01:07 Order name: Cardiac monitoring; Complete Time: 01:16 rn 12/28 01:07 Order name: EKG - Nurse/Tech; Complete Time: 01:16 rn 12/28 01:07 Order name: IV Saline Lock - Large Bore; Complete Time: 02:23 rn 12/28 01:07 Order name: Labs collected and sent; Complete Time: 02:23 rn 12/28 01:08 Order name: O2 Per Protocol; Complete Time: 01:55 rn 12/28 01:08 Order name: O2 Sat Monitoring; Complete Time: 01:58 rn 12/28 01:08 Order name: Vital Signs; Complete Time: 02:23 rn EC:39 Rate is 79 beats/min. Rhythm is regular. DC interval is normal. QRS interval is normal. rn QT interval is normal. No Q waves. T waves are Normal. No ST changes noted. Clinical impression: NSR w/ Non-specific ST/T Changes. Interpreted by me. Reviewed by me. Administered Medications: 02:03 Drug: Levalbuterol Inhalation 1.25 mg Inhalation once Route: Inhalation; tb4 02:34 Follow up: Response: No adverse reaction tb4 02:34 Drug: Erie PO 10 mg-325 mg 1 tabs PO once Route: PO; tb4 04:04 Follow up: Response: No adverse reaction; Pain is decreased; RASS: Alert and Calm (0) tb4 04:05 Drug: levofloxacin IVPB 500 mg 100 ml IVPB once over 60 mins Volume: 100 ml; Route: tb4 IVPB; Infused Over: 60 mins; Site: right antecubital; 05:13 Follow up: IV Status: Completed infusion tb4 05:14 Follow up: Response: No adverse reaction tb4 Disposition Summary: 12/28/24 03:44 Hospitalization Ordered Notes: Hospitalization Status: Inpatient Admission rn Provider: Jorge Garcia rn Location: Telemetry/[facility] (Inpatient) rn Condition: Stable rn Problem: new rn Symptoms: have improved rn Bed/Room Type: Standard rn Room Assignment: 231(12/28/24 04:25) vk Diagnosis - Pneumonia, unspecified organism rn - Hypoxemia rn - Anemia, unspecified rn Forms: - Medication Reconciliation Form rn - SBAR form rn - Leadership Thank You Letter rn Signatures: Dispatcher [employer] Junito López MD MD rn Bryson, James RN RN Isis Mccrary Terri RN RN tb4 Corrections: (The following items were deleted from the chart) 04: 03:44 rn vk
--- NOTE | 2024-12-28 03:45 | ER ---
Nurse's Notes [facility] Name: Rachael Knox Age: 39 yrs Sex: Female : 1985 Arrival Date: 12/28/2024 Time: 00:48 Bed 13 Private MD: Diagnosis: Pneumonia, unspecified organism;Hypoxemia;Anemia, unspecified Presentation: 12/28 01:04 Chief complaint: Patient states: I started feeling short of breath 3 days ago and jb4 started having chest pain that started a day ago. Coronavirus screen: At this time, the client does not indicate any symptoms associated with coronavirus-19. Ebola Screen: No symptoms or risks identified at this time. Initial Sepsis Screen: Does the patient meet any 2 criteria? No. Patient's initial sepsis screen is negative. Does the patient have a suspected source of infection? No. Patient's initial sepsis screen is negative. Risk Assessment: Do you want to hurt yourself or someone else? Patient reports no desire to harm self or others. Onset of symptoms was December 28, 2024. Transition of care: patient was not received from another setting of care. 01:04 Method Of Arrival: Ambulatory jb4 01:04 Acuity: DARSHAN 2 jb4 Historical: - Allergies: 01:06 Bactrim; jb4 01:06 mycins; jb4 01:06 PENICILLINS; jb4 01:06 Sulfa (Sulfonamide Antibiotics); jb4 - PMHx: 01:06 Anemia; Anxiety; Asthma; Bipolar disorder; Blood transfusions; cardiac arrest; jb4 depressive disorder; Hypertension; Hypothyroidism; NIDDM; - PSHx: 01:06 Appendectomy; breast; section; dilation and curettage; hernia repair; jb4 Tonsillectomy; tubal ligation; - Immunization history:: Adult Immunizations up to date. - Infectious Disease History:: Denies. - Family history:: not pertinent. - Hospitalizations: : No recent hospitalization is reported. - Social history:: Smoking status: Patient denies any tobacco usage or history of. Patient/guardian denies using alcohol, street drugs, IV drugs. Screenin:46 [facility] ED Fall Risk Assessment (Adult) History of falling in the last 3 months, tb4 including since admission No falls in past 3 months (0 pts) Confusion or Disorientation No (0 pts) Intoxicated or Sedated No (0 pts) Impaired Gait No (0 pts) Mobility Assist Device Used No (0 pt) Altered Elimination No (0 pt) Score/Fall Risk Level 0 - 2 = Low Risk Oriented to surroundings, Maintained a safe environment. Abuse screen: Denies threats or abuse. Nutritional screening: No deficits noted. Tuberculosis screening: No symptoms or risk factors identified. Assessment: 01:31 Reassessment: Patient is alert, oriented x 3, equal unlabored respirations, skin tb4 warm/dry/pink. See triage note. General: Appears distressed, uncomfortable, Behavior is cooperative. Pain: Complains of pain in anterior aspect of left upper chest Pain does not radiate. Pain currently is 6 out of 10 on a pain scale. Quality of pain is described as pressure, Pain began suddenly, Is continuous, Alleviated by nothing. Neuro: Level of Consciousness is awake, alert, obeys commands, Oriented to person, place, time, situation, Hobber are weak bilaterally Moves all extremities. Full function Speech is normal, Facial symmetry appears normal. Respiratory: Airway is patent Trachea midline Respiratory effort is even, labored, Respiratory pattern is regular. GI: No signs and/or symptoms were reported involving the gastrointestinal system. : No signs and/or symptoms were reported regarding the genitourinary system. Vital Signs: 01:04 BP 134 / 84; Pulse 85; Resp 18; Temp 98.8(O); Pulse Ox 80% on R/A; Weight 165.56 kg jb4 (R); Height 5 ft. 5 in. (R); 01:46 BP 133 / 94; Pulse 76; Resp 18; Pulse Ox 96% on R/A; Weight 166.47 kg; Height 5 ft. 5 tb4 in. ; Pain 6/10; 02:46 BP 127 / 59; Pulse 64; Resp 18; Pulse Ox 97% on R/A; tb4 03:37 BP 112 / 91; Pulse 56; Resp 18; Pulse Ox 97% on 3.5 lpm NC; Pain 6/10; tb4 04:45 BP 122 / 76; Pulse 61; Resp 18; Pulse Ox 96% on 3.5 lpm NC; Pain 6/10; tb4 01:46 Body Mass Index 61.07 (166.47 kg, 165.1 cm) tb4 01:46 Pain Scale: Adult tb4 03:37 Pain Scale: Adult tb4 04:45 Pain Scale: Adult tb4 01:04 placed on 3L NC now satting 97% jb4 ED Course: 00:51 Patient arrived in ED. jb4 00:54 Junito Sutton MD is Attending Physician. rn 01:06 Triage completed. jb4 01:06 Arm band placed on right wrist. jb4 01:21 Chest Single View XRAY In Process Unspecified. EDMS 01:35 EKG done, by ED staff, reviewed by Junito Sutton MD. hw 01:46 Patient has correct armband on for positive identification. Bed in low position. Call tb4 light in reach. Side rails up X 1. Client placed on continuous cardiac and pulse oximetry monitoring. NIBP monitoring applied. Door closed. 01:46 Inserted saline lock: 20 gauge in right antecubital area, using aseptic technique. tb4 Blood collected. Flushed with 10 mL NS. 02:23 BNP Sent. br2 02:23 Blood Culture Adult (2) Sent. br2 02:23 CBC with Diff Sent. br2 02:23 CMP Sent. br2 02:23 Lactate w/ 2H reflex if indic. Sent. br2 02:23 Protime (+inr) Sent. br2 02:23 Ptt, Activated Sent. br2 02:23 Troponin HS Sent. br2 02:45 COVID-19 Ag + Flu A+B Ag Sent. tb4 02:49 COVID-19 Ag + Flu A+B Ag Sent. hw 02:49 Type And Screen Sent. hw 02:59 Initial lab(s) drawn, by ED staff. tb4 03:44 Jorge Garcia, RN is Hospitalizing Provider. rn Administered Medications: 02:03 Drug: Levalbuterol Inhalation 1.25 mg Inhalation once Route: Inhalation; tb4 02:34 Follow up: Response: No adverse reaction tb4 02:34 Drug: [place] PO 10 mg-325 mg 1 tabs PO once Route: PO; tb4 04:04 Follow up: Response: No adverse reaction; Pain is decreased; RASS: Alert and Calm (0) tb4 04:05 Drug: levofloxacin IVPB 500 mg 100 ml IVPB once over 60 mins Volume: 100 ml; Route: tb4 IVPB; Infused Over: 60 mins; Site: right antecubital; 05:13 Follow up: IV Status: Completed infusion tb4 05:14 Follow up: Response: No adverse reaction tb4 Medication: 01:46 VIS not applicable for this client. tb4 Outcome: 03:44 Decision to Hospitalize by Provider. rn 05:25 Patient left the ED. tb4 Signatures: Dispatcher [employer] Junito López MD MD rn Bryson, James, RN RN jb4 Halima Ceja RN RN br2 Erin Riggs Terri RN RN tb4
[2024-12-28] MEDS ORDERED: Levofloxacin500mg IV 500 MG/100 ML BAG IV ONE (03:47)
--- NOTE | 2024-12-28 04:20 | P.HP ---
Certification for Inpatient Patient admitted to: Inpatient With expected LOS: >2 Midnights Patient will require the following post-hospital care: None Practitioner: I am a practitioner with admitting privileges, knowledge of patient current condition, hospital course, and medical plan of care. Services: Services provided to patient in accordance with Admission requirements found in Title 42 Section 412.3 of the Code of Federal Regulations Patient History Date of Service: 12/28/24 Reason for admission: AHRF 2/2 asthma exacerbation versus CAP. History of Present Illness: Patient is a 39-year-old female with past medical history of asthma, anxiety, anemia, bipolar disorder, blood transfusion, depressive disorder, essential hypertension, hypothyroidism, type 2 diabetes mellitus, who reports to the ER today complaining of worsening shortness of breath associated with expiratory and inspiratory wheezing with no chest pain. Patient states she started having shortness of breath 3 days ago, progressively worsened today with shortness of breath both at rest and activities with profound expiratory and inspiratory wheezing which then prompted patient to report to the ER. On arrival to ER, patient room air O2 saturation was 80% . Patient was then placed on 3 L of oxygen and received Xopenex nebulizer treatment. On admission assessment, patient still has expiratory wheezing, diminished breath sounds, poor aeration, with crackles and rhonchi more profound on patient right lung. Patient denies of any respiratory distress at this time. Patient is able to communicate in full sentences. Patient had chest x-ray done in ER.. Course in ER: Chest x-ray 1 view, impression: Low lung volumes with mild bilateral perihilar streaky opacities. No focal consolidation. Findings may reflect viral lower respiratory infection, interstitial edema, or be artifactual secondary to crowding of the periocular structures. Correlation with proBNP level is recommended. Allergies erythromycin base Allergy (Verified 12/02/23 03:10) Hives/Rash Penicillins Allergy (Verified 12/02/23 03:10) Hives/Rash Sulfa (Sulfonamide Antibiotics) Allergy (Verified 12/02/23 03:10) Hives/Rash sulfamethoxazole [From Bactrim] Allergy (Verified 12/02/23 03:10) Unknown trimethoprim [From Bactrim] Allergy (Verified 12/02/23 03:10) Unknown Home medications list reviewed: No Home Medications: Albuterol Inhaler [Ventolin Inhaler*] 2 puff IH Q4HP PRN #1 inhaler 07/01/24 Furosemide [Lasix*] 20 mg PO DAILY #30 tab 07/01/24 Mometasone/Formoterol [Dulera 200 Mcg/5 Mcg Inhaler] 2 puff IH BID #1 inhaler 07/01/24 Mupirocin Calcium [Bactroban Nasal*] 1 appl LANA BID #1 tube 07/01/24 Potassium Chloride 10 meq PO DAILY #30 tab 07/01/24 LORazepam [Ativan] 0.5 mg PO DAILY PRN 5 Days #5 tab 07/22/24 Levothyroxine Sodium 150 mcg PO DAILY #30 tab 07/22/24 levoFLOXacin [Levaquin*] 750 mg PO DAILY #5 tab 07/22/24 predniSONE [Deltasone*] 10 mg PO BID 7 Days #14 tab 07/22/24 - Past Medical/Surgical History Diabetic: No -: hypothyroidism -: anxiety -: depression -: bipolar -: Asthma -: COVID pneumonia -: Sleep apnea -: c section -: tubal ligation -: tonsillectomy -: Adenoidectomy -: Hernia repair,abdominal, needs another repair -: Appendectomy Psychosocial/ Personal History: 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 - Family History Father -: Lung disease (copd) Notes: drug addict, ETOH abuse Mother -: Heart disease, Hypertension, Lung disease, Diabetes, Stroke, Other (see notes) Notes: copd,chf - Social History Smoking Status: Never smoker Alcohol use: No CD- Drugs: No Caffeine use: Yes Place of Residence: Home Review of Systems 10-point ROS is otherwise unremarkable Respiratory: Cough (Nonproductive.), Shortness of Breath, SOB with Excertion, Other (Expiratory and inspiratory wheezing) Physical Examination - Physical Exam General: Alert, Oriented x3, Cooperative HEENT: Atraumatic, Normocephalic, PERRLA, Mucous membr. moist/pink Neck: Supple, 2+ carotid pulse no bruit, No LAD, Without JVD or thyroid abnormality Respiratory: Expiratory wheezes, Inspiratory wheezes, Other (Bilateral poor aeration with crackles and rhonchi.) Cardiovascular: Normal pulses, Regular rate/rhythm, Normal S1 S2, No gallops, No rubs, No murmurs Gastrointestinal: Normal bowel sounds, W/out hepatomegaly, No ascites, No tenderness, No masses, No rebound, No guarding, Distended (Secondary to morbid obesity.) Musculoskeletal: No clubbing, No swelling, No contractures, No erythema, No tenderness, No warmth Integumentary: No rashes, No breakdown, No significant lesion, No tenderness/swelling, No erythema, No warmth, No cyanosis Neurological: Normal gait, Normal speech, Normal strength at 5/5 x4 extr, Normal tone, Sensation intact, Cranial nerves 3-12 intact, Normal reflexes 2+, Normal affect Lymphatics: No axilla or inguinal lymphadenopathy - Studies Laboratory Data (last 24 hrs) 12/28/24 12/28/24 12/28/24 01:57 01:57 01:57 WBC 7.60 Hgb 8.3 L Hct 26.4 L Plt Count 300 PT 11.5 INR 1.02 APTT 33.4 Sodium 139 Potassium 4.0 BUN 15 Creatinine 1.11 H Glucose 94 Total Bilirubin 0.3 AST 47 H ALT 30 Alkaline Phosphatase 55 Female Exam - Breasts Breasts: Normal configuration Assessment and Plan - Plan Patient is a 44-year-old who reports to ER complaining of worsening shortness of breath associated with expiratory and inspiratory wheezing with no fever or chills. Patient initial O2 saturation in ER room air was 80%. Patient chest x- ray impression is concerning for possible pneumonia but without clarity. (1)AHRF 2/2 asthma exacerbation versus CAP?. -Prednisone 20 mg p.o. daily. -DuoNeb every 4 hours. -O2 3 L via nasal cannula. -Levaquin 7 and 50 mg IV Q for 24 hours. Patient is allergic to penicillin resulting to hives and difficulty breathing. -Consult generator man Dr. Lugo. (2)Chronic hypothyroidism. -Continue home med levothyroxine 150 mcg p.o. daily. (3)Chronic anxiety. -Continue Ativan 0.5 mg p.o. as needed daily. (4)Explained the entire treatment plan to the patient, solicit questions answered and voiced understanding. Discharge Plan: Home Plan to discharge in: Greater than 2 days - Advance Directives Does patient have a Living Will: No Does patient have a Durable POA for Healthcare: No - Code Status/Comfort Care Code Status Assessed: Yes Code Status: Full Code Critical Care: No Time Spent Managing Pts Care (In Minutes): 55
--- NOTE | 2024-12-28 06:03 | RAD REPORT ---
PROCEDURE: XR Chest, 1 View CLINICAL INDICATION: The patient is 39 years old and is Female; DYSPNEA Bed Name: 13 TECHNIQUE: Frontal view of the chest. COMPARISON: No relevant prior studies available. FINDINGS: LUNGS: Low lung volumes with mild bilateral perihilar streaky opacities. No focal consolidation. PLEURAL SPACE: No appreciable pleural effusion or pneumothorax. MEDIASTINUM: Prominence of the cardiomediastinal silhouette, likely exaggerated secondary to portab le technique, lordotic positioning, and patient body habitus. BONES/JOINTS: No acute osseous abnormality. IMPRESSION: Low lung volumes with mild bilateral perihilar streaky opacities. No focal consolidation. Findings ma y reflect viral lower respiratory infection, interstitial edema, or be artifactual secondary to crowding of the perihilar structures. Correlation with proBNP levels recommended. Electronically signed by: Agus Do MD 12/28/2024 02:24 AM CDT RP Due to temporary technical issues with the PACS/[employer] reporting system, reports are being gabo d by the in-house radiologist without review as a courtesy to ensure prompt reporting the interpreting radiologist is fully responsible for the content of the report. Transcribed Date/Time: 12/28/2024 6:03 AM
[2024-12-28] MEDS: LEVOTHYROXINE SOD 0.125 MG TAB PO SCH ×2 (06:30)
[2024-12-28 06:44] VITALS: BMI 63.1
[2024-12-28] MEDS: ALBUTEROL 2.5 MG/3 ML NEB SOL NEB SCH (07:58)
[2024-12-28] MEDS: IPRATROPIUM BROM 0.5MG/2.5ML NEB SCH (07:58)
[2024-12-28] MEDS: ENOXAPARIN 40 MG/0.4 ML SQ SCH (09:06)
[2024-12-28] MEDS: LEVOTHYROXINE SOD 0.075 MG TAB PO SCH (09:06)
[2024-12-28] MEDS: predniSONE 20 MG TAB PO SCH (09:06)
--- NOTE | 2024-12-28 16:12 | P.PN ---
Date of Service: 12/28/24 Patient seen and examined. Patient desaturated to 78% on oxygen by nasal cannula. She is placed on BiPAP. Continue scheduled bronchodilators, IV steroid. Pulmonary consult. Continue BiPAP. IV Levaquin
[2024-12-28] MEDS: METHYLPREDNISOLONE 40 MG INJ IV SCH (17:00)
[2024-12-29 04:34] LABS: Absolute Lymphocytes (CBC) 1.0 K/uL (0.7-4.9); Hematocrit 26.9 % (36.0-45.0); Hemoglobin 8.2 g/dL (12.0-15.0); MCH 24.9 pg (27.0-35.0); MCHC 30.6 g/dL (32.0-36.0); MCV 81.3 fL (80-100); MPV 7.9 fL (7.6-11.3); Nucleated RBC Absolute Count 0.0 (0-0); Nucleated Red Blood Cells % 0.0 % (0-0); RBC Red Blood Cell Count 3.30 M/uL (3.86-4.86); White Blood Count 10.70 thou/uL (4.3-10.9)
[2024-12-29] MEDS: Levofloxacin 750mg IV 750 MG/150 ML BAG IV SCH (04:40)
[2024-12-29 04:54] LABS: ALT/SGPT 28.0 U/L (13-56); AST/SGOT 39.0 U/L (15-37); Albumin 3.9 g/dL (3.4-5.0); Albumin/Globulin Ratio 1.0 (1.1-1.8); Alkaline Phosphatase 48.0 U/L (45-117); Anion Gap 8.4 mEq/L (5.0-15.0); BUN Blood Urea Nitrogen 14.0 mg/dL (7-18); Globulin 3.8 g/dL (2.3-3.5); Glucose Level 125.0 mg/dL (74-106); Magnesium 2.6 mg/dL (1.6-2.4); Potassium 4.4 mEq/L (3.5-5.1)
[2024-12-29 05:32] LABS: Anisocytosis 1+; Blood Morphology Comment NOTED (NOT SEEN); Differential Total Cells Count 100; Segmented Neutrophils 75 % (40-80)
--- NOTE | 2024-12-29 12:20 | P.PN ---
Subjective Date of Service: 12/29/24 Chief Complaint: Asthma exacerbation Patient is a 39 years of age recurrent hospital admissions noncompliant admitted with worsening dyspnea is not using her inhalers or her thyroid medication became more progressively worse and it appeared in the hospital Review of Systems Unremarkable General: Weakness Respiratory: Shortness of Breath Physical Examination - Vital Signs Temperature: 97.9 F Blood Pressure: 119/66 Pulse: 75 Respirations: 20 Pulse Ox (%): 94 - Physical Exam General: Alert, Oriented x3 Respiratory: Clear to auscultation bilaterally Cardiovascular: No edema, Regular rate/rhythm, Normal S1 S2 Assessment And Plan - Current Problems (Diagnosis) (1) Asthma exacerbation Current Visit: Yes Status: Acute Plan: Patient is 39 years of age has a history of asthma noncompliant her last inhaler was 1 once she was discharged from the hospital she is not even using her thyroid medication appears to be hypothyroid also has symptoms of sleep apnea need to be evaluated as an outpatient chest x-ray shows some cardiomegaly resume bronchodilators check thyroid function test prognosis poor will need to follow- up with me as an outpatient patient is noncompliant
[2024-12-29 13:42] LABS: Thyroid Stimulating Hormone 29.4 uIU/mL (0.358-3.740)
[2024-12-29] MEDS: IPRATROPIUM BROM 0.5MG/2.5ML NEB SCH (14:25)
[2024-12-29] MEDS: ALBUTEROL 2.5 MG/3 ML NEB SOL NEB SCH (14:26)
--- NOTE | 2024-12-29 15:28 | P.PN ---
Subjective Date of Service: 12/29/24 Chief Complaint: Asthma exacerbation Patient reports shortness of breath. She has been using oxygen by nasal cannula 3 L, alternating with BiPAP. According to report patient has not been compliant with her bronchodilators and allergy medications. Physical Examination - Vital Signs Temperature: 97.9 F Blood Pressure: 119/66 Pulse: 75 Respirations: 20 Pulse Ox (%): 94 Assessment And Plan - Plan Physical examination General: Alert and oriented x3, NAD, morbidly obese. Neck: Supple, no elevated JVD Heart: Heart sounds 1 and 2 normal, regular rhythm, normal rate, no pedal edema Lungs: Mild scattered wheezes, diminished breath sounds bilaterally. Abdomen: Soft, nondistended, nontender, normal bowel sounds. Extremities: No tenderness, no deformity Skin: Normal skin turgor, no rash, no nodules or ulcers. Neuro: No focal motor deficit. Normal speech. Psychiatry: Normal mood, no agitation. Diagnosis: Acute asthma exacerbation Obesity hypoventilation Hypothyroidism Chronic anemia Medication noncompliance Plan: Continue scheduled nebs, IV steroid. Resume home dose levothyroxine. Check TSH within 8 weeks Monitor H&H and transfuse as needed for hemoglobin less than 8. Pulmonary Dr. Flores input appreciated. Wean oxygen as tolerated. DVT prophylaxis: Lovenox
[2024-12-29] MEDS: DULERA 200/5 (MOMETASONE/FORMOTEROL) INHALER IH SCH (20:32)
[2024-12-30] MEDS: ACETAMINOPHEN 500 MG TAB PO PRN (05:54)
[2024-12-30 07:48] LABS: Absolute Lymphocytes (CBC) 1.3 K/uL (0.7-4.9); Hematocrit 26.2 % (36.0-45.0); Hemoglobin 8.0 g/dL (12.0-15.0); MCH 24.7 pg (27.0-35.0); MCHC 30.4 g/dL (32.0-36.0); MCV 81.3 fL (80-100); MPV 8.2 fL (7.6-11.3); Nucleated RBC Absolute Count 0.0 (0-0); Nucleated Red Blood Cells % 0.1 % (0-0); RBC Red Blood Cell Count 3.22 M/uL (3.86-4.86); White Blood Count 16.60 thou/uL (4.3-10.9)
[2024-12-30 08:10] LABS: ALT/SGPT 27.0 U/L (13-56); AST/SGOT 34.0 U/L (15-37); Albumin 3.9 g/dL (3.4-5.0); Albumin/Globulin Ratio 1.0 (1.1-1.8); Alkaline Phosphatase 45.0 U/L (45-117); Anion Gap 5.3 mEq/L (5.0-15.0); BUN Blood Urea Nitrogen 18.0 mg/dL (7-18); Globulin 3.8 g/dL (2.3-3.5); Glucose Level 118.0 mg/dL (74-106); Magnesium 2.7 mg/dL (1.6-2.4); Potassium 4.3 mEq/L (3.5-5.1)
[2024-12-30 09:17] LABS: Anisocytosis 1+; Blood Morphology Comment NOTED (NOT SEEN); Hypochromasia 1+; White Blood Cell Scan OK (OK)
--- NOTE | 2024-12-30 14:51 | P.PN ---
Subjective Date of Service: 12/30/24 Chief Complaint: Asthma exacerbation Patient denies shortness of breath at rest. Her oxygen requirement is improving. Patient is tolerating room air at rest. Physical Examination - Vital Signs Temperature: 98.0 F Blood Pressure: 120/58 Pulse: 70 Respirations: 20 Pulse Ox (%): 99 Assessment And Plan - Plan Physical examination General: Alert and oriented x3, NAD, morbidly obese. Neck: Supple, no elevated JVD Heart: Heart sounds 1 and 2 normal, regular rhythm, normal rate, no pedal edema Lungs: Mild scattered wheezes, diminished breath sounds bilaterally. Abdomen: Soft, nondistended, nontender, normal bowel sounds. Extremities: No tenderness, no deformity Skin: Normal skin turgor, no rash, no nodules or ulcers. Neuro: No focal motor deficit. Normal speech. Psychiatry: Normal mood, no agitation. Diagnosis: Acute asthma exacerbation Obesity hypoventilation Hypothyroidism Chronic anemia Medication noncompliance Plan: Continue scheduled nebs, IV steroid. Resume home dose levothyroxine. Check TSH within 8 weeks Monitor H&H and transfuse as needed for hemoglobin less than 8. Pulmonary Dr. Flores input appreciated. Wean oxygen as tolerated. 12/30 Patient respiratory status is improving, however patient becomes hypoxic during sleep. She is able to tolerate room air with oxygen saturation greater than 90% while awake. Continue IV steroid, nebs. Increase activity as tolerated. Pulmonary Dr. Flores is following. DVT prophylaxis: Lovenox
[2024-12-31 06:42] LABS: Absolute Lymphocytes (CBC) 1.2 K/uL (0.7-4.9); Hematocrit 25.0 % (36.0-45.0); Hemoglobin 7.9 g/dL (12.0-15.0); MCH 25.4 pg (27.0-35.0); MCHC 31.5 g/dL (32.0-36.0); MCV 80.8 fL (80-100); MPV 8.0 fL (7.6-11.3); Nucleated RBC Absolute Count 0.0 (0-0); Nucleated Red Blood Cells % 0.0 % (0-0); RBC Red Blood Cell Count 3.10 M/uL (3.86-4.86); White Blood Count 14.40 thou/uL (4.3-10.9)
[2024-12-31 07:11] LABS: ALT/SGPT 26.0 U/L (13-56); AST/SGOT 27.0 U/L (15-37); Albumin 4.0 g/dL (3.4-5.0); Albumin/Globulin Ratio 1.1 (1.1-1.8); Alkaline Phosphatase 43.0 U/L (45-117); Anion Gap 5.3 mEq/L (5.0-15.0); BUN Blood Urea Nitrogen 24.0 mg/dL (7-18); Globulin 3.5 g/dL (2.3-3.5); Glucose Level 119.0 mg/dL (74-106); Magnesium 2.7 mg/dL (1.6-2.4); Potassium 4.3 mEq/L (3.5-5.1)
--- NOTE | 2024-12-31 14:38 | P.PN ---
Subjective Date of Service: 12/31/24 Chief Complaint: Asthma exacerbation Patient reports improvement in his shortness of breath. She has been maintained on 3 L oxygen by nasal cannula. Physical Examination - Vital Signs Temperature: 98.0 F Blood Pressure: 123/57 Pulse: 78 Respirations: 16 Pulse Ox (%): 91 Assessment And Plan - Plan Physical examination General: Alert and oriented x3, NAD, morbidly obese. Neck: Supple, no elevated JVD Heart: Heart sounds 1 and 2 normal, regular rhythm, normal rate, no pedal edema Lungs: Mild scattered wheezes, breath sounds improved bilaterally Abdomen: Soft, nondistended, nontender, normal bowel sounds. Extremities: No tenderness, no deformity Skin: Normal skin turgor, no rash, no nodules or ulcers. Neuro: No focal motor deficit. Normal speech. Psychiatry: Normal mood, no agitation. Diagnosis: Acute asthma exacerbation Obesity hypoventilation Hypothyroidism Chronic anemia Medication noncompliance Plan: Continue scheduled nebs, IV steroid. Resume home dose levothyroxine. Check TSH within 8 weeks Monitor H&H and transfuse as needed for hemoglobin less than 8. Pulmonary Dr. Flores input appreciated. Wean oxygen as tolerated. 12/30 Patient respiratory status is improving, however patient becomes hypoxic during sleep. She is able to tolerate room air with oxygen saturation greater than 90% while awake. Continue IV steroid, nebs. Increase activity as tolerated. Pulmonary Dr. Flores is following. 12/31 Improved breath sounds on auscultation Patient still oxygen dependent. Continue IV steroid for 1 more day and transition to oral prednisone Continue scheduled nebs. BiPAP as needed. Pulmonary is following Continue current dose Synthroid Humidify oxygen to prevent epistaxis. DVT prophylaxis: Lovenox
[2025-01-01] MEDS: LORAZEPAM 0.5 MG TABLET PO PRN (08:57)
[2025-01-01] MEDS ORDERED: ALBUTEROL 2.5 MG/3 ML NEB SOL NEB PRN (11:40)
--- NOTE | 2025-01-01 11:40 | P.PN ---
Subjective Date of Service: 01/01/25 Chief Complaint: Asthma exacerbation severe desaturation at night Patient is improving breathing better experiencing significant desaturation at night also is severely hypothyroid Review of Systems General: Weakness Respiratory: Shortness of Breath Physical Examination - Vital Signs Temperature: 98.0 F Blood Pressure: 117/58 Pulse: 73 Respirations: 16 Pulse Ox (%): 96 - Physical Exam General: Alert, Oriented x3 Respiratory: Clear to auscultation bilaterally Cardiovascular: No edema, Regular rate/rhythm, Normal S1 S2 Assessment And Plan - Current Problems (Diagnosis) (1) Asthma exacerbation Current Visit: Yes Status: Acute Plan: Patient admitted with asthma exacerbation is improving changed to p.o. prednisone patient is improving Qualifiers: Asthma severity: severe (2) Acute and chronic respiratory failure Current Visit: Yes Status: Acute Plan: Patient has significant desaturation at night I suspect she may have obesity hypoventilation syndrome versus underlying obstructive sleep apnea will see if she qualifies for noninvasive ventilator or a BiPAP prior to discharge also patient is very hypothyroid and currently on Synthroid Qualifiers: Respiratory failure complication: unspecified whether with hypoxia or hypercapnia Qualified Code(s): J96.20 - Acute and chronic respiratory failure, unspecified whether with hypoxia or hypercapnia
[2025-01-01 12:09] LABS: Blood O2 Saturation 94.2 % (92.0-98.5)
--- NOTE | 2025-01-01 14:53 | P.PN ---
Subjective Date of Service: 01/01/25 Chief Complaint: Asthma exacerbation severe desaturation at night Patient noted to be 96% on room air at rest and 90% with ambulation however her oxygen saturation drops to 70s and 60s during sleep. Patient denies any new complaint. She denies shortness of breath. Physical Examination - Vital Signs Temperature: 97.8 F Blood Pressure: 115/54 Pulse: 73 Respirations: 16 Pulse Ox (%): 91 Assessment And Plan - Plan Physical examination General: Alert and oriented x3, NAD, morbidly obese. Neck: Supple, no elevated JVD Heart: Heart sounds 1 and 2 normal, regular rhythm, normal rate, no pedal edema Lungs: Mild scattered wheezes, breath sounds improved bilaterally Abdomen: Soft, nondistended, nontender, normal bowel sounds. Extremities: No tenderness, no deformity Skin: Normal skin turgor, no rash, no nodules or ulcers. Neuro: No focal motor deficit. Normal speech. Psychiatry: Normal mood, no agitation. Diagnosis: Acute asthma exacerbation Obesity hypoventilation Hypothyroidism Chronic anemia Medication noncompliance Plan: Continue scheduled nebs, IV steroid. Resume home dose levothyroxine. Check TSH within 8 weeks Monitor H&H and transfuse as needed for hemoglobin less than 8. Pulmonary Dr. Flores input appreciated. Wean oxygen as tolerated. 12/30 Patient respiratory status is improving, however patient becomes hypoxic during sleep. She is able to tolerate room air with oxygen saturation greater than 90% while awake. Continue IV steroid, nebs. Increase activity as tolerated. Pulmonary Dr. Flores is following. 12/31 Improved breath sounds on auscultation Patient still oxygen dependent. Continue IV steroid for 1 more day and transition to oral prednisone Continue scheduled nebs. BiPAP as needed. Pulmonary is following Continue current dose Synthroid Humidify oxygen to prevent epistaxis. 01/01 Patient currently tolerating room air at rest while awake. Continue bronchodilators Pulmonary input appreciated, IV steroids changed to oral prednisone. Continue with current dose Synthroid Social service consult for arrangement for NIV/BIPAP. Increase activity as tolerated BIPAP to be applied during sleep DVT prophylaxis: Lovenox
[2025-01-01] MEDS: predniSONE 20 MG TAB PO SCH (21:42)
[2025-01-02 05:03] LABS: Absolute Lymphocytes (CBC) 1.9 K/uL (0.7-4.9); Hematocrit 25.6 % (36.0-45.0); Hemoglobin 7.8 g/dL (12.0-15.0); MCH 25.1 pg (27.0-35.0); MCHC 30.6 g/dL (32.0-36.0); MCV 81.9 fL (80-100); MPV 8.0 fL (7.6-11.3); Nucleated RBC Absolute Count 0.0 (0-0); Nucleated Red Blood Cells % 0.0 % (0-0); RBC Red Blood Cell Count 3.12 M/uL (3.86-4.86); White Blood Count 13.20 thou/uL (4.3-10.9)
[2025-01-02 05:15] LABS: Anion Gap 7.4 mEq/L (5.0-15.0); BUN Blood Urea Nitrogen 24.0 mg/dL (7-18); Glucose Level 121.0 mg/dL (74-106); Potassium 4.4 mEq/L (3.5-5.1)
--- NOTE | 2025-01-02 15:01 | P.PN ---
Subjective Date of Service: 01/02/25 Chief Complaint: Asthma exacerbation severe desaturation at night Patient's SaO2 drops as low as 60 during sleep. Patient denies any new complaint. She denies shortness of breath. Physical Examination - Vital Signs Temperature: 97.5 F Blood Pressure: 117/67 Pulse: 73 Respirations: 15 Pulse Ox (%): 94 - Studies Microbiology Data (last 24 hrs): 12/28/24 01:57 Blood - Blood Aerobic Blood Culture - Final No growth in 5 days. 12/28/24 01:57 Blood - Blood Anaerobic Blood Culture - Final No growth in 5 days. 12/28/24 01:57 Blood - Blood Aerobic Blood Culture - Final No growth in 5 days. 12/28/24 01:57 Blood - Blood Anaerobic Blood Culture - Final No growth in 5 days. Assessment And Plan - Plan Physical examination General: Alert and oriented x3, NAD, morbidly obese. Neck: Supple. Heart: Heart sounds 1 and 2 normal, regular rhythm, normal rate, no pedal edema Lungs: Mild scattered wheezes, breath sounds improved bilaterally Abdomen: Soft, nondistended, nontender, normal bowel sounds. Extremities: No tenderness, no deformity Skin: Normal skin turgor, no rash, no nodules or ulcers. Neuro: No focal motor deficit. Normal speech. Psychiatry: Normal mood, no agitation. Diagnosis: Acute asthma exacerbation Obesity hypoventilation Hypothyroidism Chronic anemia Medication noncompliance Plan: Continue scheduled nebs, IV steroid. Resume home dose levothyroxine. Check TSH within 8 weeks Monitor H&H and transfuse as needed for hemoglobin less than 8. Pulmonary Dr. Flores input appreciated. Wean oxygen as tolerated. 12/30 Patient respiratory status is improving, however patient becomes hypoxic during sleep. She is able to tolerate room air with oxygen saturation greater than 90% while awake. Continue IV steroid, nebs. Increase activity as tolerated. Pulmonary Dr. Flores is following. 12/31 Improved breath sounds on auscultation Patient still oxygen dependent. Continue IV steroid for 1 more day and transition to oral prednisone Continue scheduled nebs. BiPAP as needed. Pulmonary is following Continue current dose Synthroid Humidify oxygen to prevent epistaxis. 01/01 Patient currently tolerating room air at rest while awake. Continue bronchodilators Pulmonary input appreciated, IV steroids changed to oral prednisone. Continue with current dose Synthroid Social service consult for arrangement for NIV/BIPAP. Increase activity as tolerated BIPAP to be applied during sleep 01/02 Patient oxygen saturation appeared to be above 90% while she is awake and active but desaturates during sleep. Patient need BiPAP during sleep Continue current dose Synthroid. Status post IV methylprednisolone Continue oral prednisone Continue current dose Synthroid. Supplemental oxygen as needed to keep oxygen saturation 88 to 90%. DVT prophylaxis: Lovenox
--- NOTE | 2025-01-03 07:33 | P.PN ---
Date of Service: 01/03/25 Subjective: feeling better today satting in 90s on room air after ambulation desats at night when sleeping never had sleep study before afebrile Physical Exam: GEN: Alert, oriented, NAD CV: Regular rate and rhythm, no edema Pulm: Nonlabored respirations on room air when awake, Mild scattered wheezes ABD: soft, nontender, nondistended Neuro: Normal speech, normal affect Problem List: Acute asthma exacerbation Obesity hypoventilation vs underlying obstructive sleep apnea Acute hypoxic respiratory failure secondary to the above Chronic anemia Hx of severe iron deficiency anemia Hypothyroidism Medication noncompliance Acute asthma exacerbation Obesity hypoventilation vs underlying obstructive sleep apnea Acute hypoxic respiratory failure secondary to the above on admission, presents with worsening shortness of breath, wheeze, hypoxia s/p IV steroids, deescalated to oral prednisone Dr. Lugo, pulm is following Continue prednisone, nebs Respiratory status improving. SPO2 > 90% when awake but desating during sleep. Social service consult for arrangement for NIV/BIPAP. Patient states she doesn't think she will be able to afford it. Chronic anemia Hx of severe iron deficiency anemia Daily labs. hgb slowly downtrending. Iron studies back in May were consistent with severe iron deficiency anemia. (iron 27, tsat% 4.8%) Has needed multiple transfusions in the past. Most recently ~1-2 months ago. Doesn't think she has ever gotten IV iron before repeat iron studies today. May benefit from IV iron if still severely low Hypothyroidism TSH 29.4, Free t4 0.15 Has been off her home synthroid for a while due to cost/insurance. Continue home synthroid repeat thyroid studies in 2-3 months VTE: Lovenox Code: Full Dispo: Home Time Spent Managing Pts Care (In Minutes): 55
[2025-01-03 09:25] VITALS: O2SAT 92
[2025-01-03 10:14] LABS: Iron 56.0 ug/dL (50-170); Transferrin 466.0 mg/dL (200-360)
[2025-01-03] MEDS: SOD FERRIC GLUC COMPLX/SUCROSE 125 MG in NA CHLORIDE 0.9% 100 ML IV ONE (15:04)
[2025-01-03 16:26] VITALS: BP 120/61; TEMP 98.6
--- NOTE | 2025-01-04 06:35 | P.DS ---
Admission Date: 12/28/24 Discharge Date: 01/03/25 Disposition: ROUTINE DISCHARGE Discharge Condition: FAIR Reason for Admission: Asthma exacerbation severe desaturation at night Consultations: Pulmonology - Dr. Lugo Brief History of Present Illness: 39yo F, PMH: asthma, anxiety, anemia, bipolar disorder, blood transfusion, depressive disorder, essential hypertension, hypothyroidism, type 2 diabetes m qiana Patient presents to the ER today complaining of worsening shortness of breath associated with expiratory and inspiratory wheezing with no chest pain. Patient states she started having shortness of breath 3 days ago, progressively worsened today with shortness of breath both at rest and activities with profound expiratory and inspiratory wheezing which then prompted patient to report to the ER. On arrival to ER, patient room air O2 saturation was 80% . Patient was then placed on 3 L of oxygen and received Xopenex nebulizer treatment. On admission assessment, patient still has expiratory wheezing, diminished breath sounds, poor aeration, with crackles and rhonchi more profound on patient right lung. Patient denies of any respiratory distress at this time. Patient is able to communicate in full sentences. Patient had chest x-ray done in ER. Course in ER: Chest x-ray 1 view, impression: Low lung volumes with mild bilateral perihilar streaky opacities. No focal consolidation. Findings may reflect viral lower respiratory infection, interstitial edema, or be artifactual secondary to crowding of the periocular structures. Correlation with proBNP level is recommended. Hospital Course: Problem List: Acute asthma exacerbation Obesity hypoventilation vs underlying obstructive sleep apnea Acute hypoxic respiratory failure secondary to the above Chronic anemia Hx of severe iron deficiency anemia Hypothyroidism Medication noncompliance Physician discharge instructions: Patient presented with worsening shortness of breath, wheeze, hypoxia secondary to acute asthma exacerbation further complicated by obesity hypoventilation syndrome vs possible underlying sleep apnea. Chest xray on admission with low lung volumes with mild bilateral perihilar streaky opacities. Patient was given IV steroids in addition to nebulizer treatments and had improvement of her symptoms. IV steroids were deescalated to oral prednisone and patient continued to improve. Her respiratory status improved over her hospitalization. Patient was able to maintain SPO2 > 90% on room air when awake, however was noted to desat significantly during sleep. Dr. Lugo, pulm had recommended home NIV/BiPAP for further management. director of convention services were consulted to help facilitate setting up home NIV however patient reported she was unable to afford this, and can't afford oxygen supplementation. Patient was noted to be anemic this hospitalization with hgb ranging in 7-8s. There was no evidence of ongoing active bleeding. Iron studies done this hospitalization were better compared to her levels in May (iron 56 compared to 27 and tsat% up to 8.6 from 4.8). IV iron 125mg given prior to discharge Recommend considering starting on oral iron supplementation on discharge. Repeat iron studies in 2-3 months. TSH was elevated (29.4) due to patient being unable to afford her home synthroid. Patient stated she hadn't been able to take it recently due to cost/insurance. Medications: Prednisone 10mg twice daily x 7 days continue dulera continue synthroid daily iron Follow up: PCP 3-5 days Pulmonology in 1-2 weeks Please call to schedule / confirm appointments Physical Exam: GEN: Alert, oriented, NAD CV: Regular rate and rhythm, no edema Pulm: Nonlabored respirations on room air, clear bilaterally ABD: soft, nontender, nondistended Neuro: Normal speech, normal affect Vital Signs/Physical Exam: Temp Pulse Resp BP Pulse Ox 98.6 F 79 20 120/61 90 L 01/03/25 16:00 01/03/25 16:00 01/03/25 16:00 01/03/25 16:00 01/03/25 16:00 Laboratory Data at Discharge: WBC 13.20 thou/uL (4.3-10.9) H 01/02/25 04:39 Hgb 7.8 g/dL (12.0-15.0) L 01/02/25 04:39 Hct 25.6 % (36.0-45.0) L 01/02/25 04:39 Plt Count 293 thou/uL (152-406) 01/02/25 04:39 PT 11.5 SECONDS (10-13.0) 12/28/24 01:57 INR 1.02 12/28/24 01:57 APTT 33.4 SECONDS (27.2-37.4) 12/28/24 01:57 Sodium 141 mEq/L (136-145) 01/02/25 04:39 Potassium 4.4 mEq/L (3.5-5.1) 01/02/25 04:39 BUN 24 mg/dL (7-18) H 01/02/25 04:39 Creatinine 0.85 mg/dL (0.55-1.02) 01/02/25 04:39 Glucose 121 mg/dL (74-106) H 01/02/25 04:39 Magnesium 2.7 mg/dL (1.6-2.4) H 12/31/24 06:22 Total Bilirubin 0.3 mg/dL (0.2-1.0) 12/31/24 06:22 AST 27 U/L (15-37) 12/31/24 06:22 ALT 26 U/L (13-56) 12/31/24 06:22 Alkaline Phosphatase 43 U/L (45-117) L 12/31/24 06:22 Home Medications: Albuterol Inhaler [Ventolin Inhaler*] 2 puff IH Q4HP PRN #1 inhaler 07/01/24 Furosemide [Lasix*] 20 mg PO DAILY #30 tab 07/01/24 Potassium Chloride 10 meq PO DAILY #30 tab 07/01/24 LORazepam [Ativan*] 0.5 mg PO DAILY PRN 5 Days #5 tab 07/22/24 Levothyroxine Sodium 75 mcg PO DAILY 12/28/24 Mometasone/Formoterol [Dulera 200 Mcg/5 Mcg Inhaler] 2 puff IH BID inhaler 01/03/25 predniSONE [Deltasone*] 10 mg PO BID 7 Days #14 tab 01/03/25 New Medications: predniSONE [Deltasone*] 10 mg PO BID 7 Days #14 tab Physician Discharge Instructions: Physician discharge instructions: Patient presented with worsening shortness of breath, wheeze, hypoxia secondary to acute asthma exacerbation further complicated by obesity hypoventilation syndrome vs possible underlyingf sleep apnea. Chest xray on admission with low lung volumes with mild bilateral perihilar streaky opacities. Patient was given IV steroids in addition to nebulizer treatments and had improvement of her symptoms. IV steroids were deescalated to oral prednisone and patient continued to improve. Her respiratory status improved over her hospitalization. Patient was able to maintain SPO2 > 90% on room air when awake, however was noted to desat significantly during sleep. Dr. Lugo pulpedro had recommended home NIV/BiPAP for further management. director of convention services were consulted to help facilitate setting up home NIV however patient reported she was unable to afford this, and can't afford oxygen supplementation. Patient was noted to be anemic this hospitalization with hgb ranging in 7-8s. There was no evidence of ongoing active bleeding. Iron studies done this hospitalization were better compared to her levels in May (iron 56 compared to 27 and tsat% up to 8.6 from 4.8). IV iron 125mg given prior to discharge Recommend considering starting on oral iron supplementation on discharge. Repeat iron studies in 2-3 months. TSH was elevated (29.4) due to patient being unable to afford her home synthroid. Patient stated she hadn't been able to take it recently due to cost/insurance. Medications: Prednisone 10mg twice daily x 7 days continue dulera continue synthroid daily iron Follow up: PCP 3-5 days Pulmonology in 1-2 weeks Please call to schedule / confirm appointments Followup: Lloyd Lugo MD [ACTIVE - CAN ADMIT] - 1-2 Weeks NONE,NONE [Primary Care Provider] - Time spent managing pt's care (in minutes): 45
== END 2025-01-03 17:24 | disposition home or self-care (01) | DRG 189 ==
LOC: ER 00:48 → 2ND 04:06
PROVIDERS: ADMIT Internal Medicine; ATTEND Hospitalist
PROC: 5A09557 Assistance with Respiratory Ventilation, Greater than 96 Consecutive Hours, Continuous Positive Airway Pressure (ICD-10-PCS; principal; 2024-12-28)
PROC: 4A033R1 Measurement of Arterial Saturation, Peripheral, Percutaneous Approach (ICD-10-PCS; 2025-01-01)
DX: J96.01 Acute respiratory failure with hypoxia (principal); J45.901 Unspecified asthma with (acute) exacerbation; E66.2 Morbid (severe) obesity with alveolar hypoventilation; Z68.44 Body mass index [BMI] 60.0-69.9, adult; D50.9 Iron deficiency anemia, unspecified; I10 Essential (primary) hypertension; F31.9 Bipolar disorder, unspecified; F41.9 Anxiety disorder, unspecified; E03.9 Hypothyroidism, unspecified; E11.9 Type 2 diabetes mellitus without complications; I25.2 Old myocardial infarction; Z88.0 Allergy status to penicillin; Z88.2 Allergy status to sulfonamides; Z88.1 Allergy status to other antibiotic agents; Z11.52 Encounter for screening for COVID-19; Z90.49 Acquired absence of other specified parts of digestive tract; Z79.52 Long term (current) use of systemic steroids; Z79.890 Hormone replacement therapy; Z79.899 Other long term (current) drug therapy; Z91.199 Patient's noncompliance with other medical treatment and regimen due to unspecified reason
CPT/HCPCS: 36415; 36600; 71045; 80048; 80053; 82805; 83540; 83605; 83735; 83880; 84439; 84443; 84466; 84484; 85025; 85610; 85730; 86850; 86900; 86901; 87040; 87428; 93005; 94010; 94640; 94660; 94760; 96365; 99285; J1650; J2916; J2919; J3535; J7512; J7613; J7614; J7644